=== PATIENT | female | born 1945 | race Caucasian/White ===

== ENCOUNTER 2016-05-30 20:26 | Emergency (ER) | payer OTHER ==
[2016-05-30 20:36] VITALS: BP 124/74; TEMP 98.9; BMI 20.7
[2016-05-30] MEDS ORDERED: SOLU-MEDROL 125 MG IVP STA (20:50)
[2016-05-30] MEDS ORDERED: DUONEB NEB STA (20:50)
--- NOTE | 2016-05-30 20:52 | ED.PDOC ---
General ED Provider: Dr. JEAN CARLOS WOODS Chief Complaint: Shortness of Air Stated Complaint: been coughing congestion, getting yellow sputum. Time Seen by Physician: 21:00 Mode of Arrival: Walk-In Information Source: Patient Primary Care Provider: GOLDIE YUNG Nursing and Triage Documentation Reviewed and Agree: Yes Respiratory Complaint Exam - Shortness of Air Complaint/Exam Symptoms Are: Still present Timing: Constant Initial Severity: Mild Current Severity: Mild Character: Reports: Dyspnea at rest, Dyspnea on exertion Aggravating: Reports: Allergens, URI, Smoke exposure Alleviating: Reports: None Associated Signs and Symptoms: Reports: Cough, Wheezing, Nasal congestion. Denies: Chest pain with cough, Chest pain, Fever, Chills, Diaphoresis, Dizziness , Calf pain, Calf swelling, Edema, Rapid breathing, Labored breathing, Decreased intake Related History: Reports: Similar episode History of Healthcare-Acquired Pneumonia: No Pulmonary Embolism Risk Factors: Reports: None Cardiac Risk Factors: Reports: CAD, Smoking, Hypertension Pseudomonas Risk Factors: Reports: None Home Oxygen Use: Yes Recent Stress Test: No Recent Echo/LV Function: No Respiratory Distress: None Stridor Present: No Tracheal Deviation: No Subcutaneous Emphysema: No Accessory Muscle Use: No Retractions: Not Present Diminished Breath Sounds: No Prolonged Expiratory Phase: No Unable to Speak Full Sentences: No Fatigue: No Leg Swelling: No Differential Diagnoses: COPD Exacerbation, Pneumonia Review of Systems - Review Of Systems Constitutional: Reports: Malaise, Weakness Eyes: Reports: No symptoms Ears, Nose, Mouth, Throat: Reports: No symptoms Respiratory: Reports: Cough, Short of air Cardiac: Reports: No symptoms GI: Reports: No symptoms : Reports: No symptoms Musculoskeletal: Reports: No symptoms Skin: Reports: No symptoms Neurological: Reports: No symptoms Endocrine: Reports: No symptoms Hematologic/Lymphatic: Reports: No symptoms All Other Systems: Reviewed and Negative Past Medical History - Past Medical History Previously Healthy: No Endocrine: Reports: None Cardiovascular: Reports: None Respiratory: Reports: COPD Hematological: Reports: Anemia Gastrointestinal: Reports: None Genitourinary: Reports: None Neuro/Psych: Reports: None Musculoskeletal: Reports: Arthritis, Joint Pain, Other (osteoporsis ). Denies: None Cancer: Reports: None Last Menstrual Period: HYSTERECTOMY - Surgical History General Surgical History: Reports: Hysterectomy - Family History Family History: Reports: Unknown - Social History Smoking Status: Current every day smoker, Light tobacco smoker Hx Substance Use: No Alcohol Screening: None - Immunizations Tetanus Shot up to Date: No Physical Exam - Physical Exam Appearance: Ill-appearing, Thin Ill-appearing: Mild Eyes: BRADLEY, EOMI, Conjunctiva clear ENT: Ears normal, Nose normal, Oropharynx normal Respiratory: Crackles, Wheezes Cardiovascular: RRR, Pulses normal, No rub, No murmur GI/: Soft, Nontender, No masses, Bowel sounds normal, No Organomegaly Musculoskeletal: Normal strength, ROM intact, No edema, No calf tenderness Skin: Warm, Dry, Normal color Neurological: Sensation intact, Motor intact, Reflexes intact, Cranial nerves intact, Alert, Oriented Psychiatric: Affect appropriate, Mood appropriate Interpretation - Radiology Interpretation Radiology Interpretation By: ED Physician Radiology Results: Negative Exam Interpreted: CXR Critical Care Note - Critical Care Note Total Time (mins): 0 Course - Course Hematology/Chemistry: 05/30/16 21:05 05/30/16 21:05 Orders, Labs, Meds: Lab Review 05/30/16 05/30/16 20:50 21:05 WBC 16.64 H RBC 3.88 L Hgb 12.9 Hct 37.3 MCV 96.1 MCH 33.2 H MCHC 34.6 RDW Coeff of Lynette 14.5 Plt Count 236 Immature Gran % (Auto) 0.4 Neut % (Auto) 84.6 Lymph % (Auto) 7.5 L Swain % (Auto) 7.2 Eos % (Auto) 0.1 Baso % (Auto) 0.2 Immature Gran # (Auto) 0.1 Neut # 14.1 H Lymph # 1.2 Swain # 1.2 Eos # 0.0 Baso # 0.0 Puncture Site Rb O2 Saturation 96.0 ABG pH 7.377 ABG pCO2 37.2 ABG pO2 80.0 L ABG HCO3 21.9 L ABG Total CO2 23 ABG Base Excess -3 L Bernabe Test + O2 Delivery Device Nc Oxygen Liter Flow 2.50 FiO2 % 30.0 Sodium 126 L Potassium 4.4 Chloride 93 L Carbon Dioxide 20 L Anion Gap 17.4 BUN 10 Creatinine 0.66 Estimated GFR (MDRD) 89.00 BUN/Creatinine Ratio 15.15 Glucose 118 H Calcium 8.7 Total Bilirubin 0.21 AST 41 H ALT 15 Alkaline Phosphatase 76 Total Creatine Kinase 355 CK-MB (CK-2) 8.7 H* CK-MB (CK-2) % 2.29307 Troponin I 0.0110 B-Natriuretic Peptide 99 Total Protein 6.7 Albumin 3.4 Globulin 3.3 Albumin/Globulin Ratio 1.03 Orders Category Date Time Status ABG DRAW REQUEST Stat CARDIO 05/30/16 20:50 Completed EKG-(ED ONLY) Stat CARDIO 05/30/16 20:50 Completed NEBULIZER TREATMENT Stat CARDIO 05/30/16 20:50 Completed ED IV/MEDIPORT/POWERPORT .ONCE EMERGENCY 05/30/16 20:50 Active ABG Stat LAB 05/30/16 20:50 Completed B-TYPE NATRIURETIC PEPTIDE Stat LAB 05/30/16 21:05 Completed CBC W/ AUTO DIFF Stat LAB 05/30/16 21:05 Completed COMPREHENSIVE METABOLIC PANEL Stat LAB 05/30/16 21:05 Completed CREATINE KINASE Stat LAB 05/30/16 21:05 Completed TROPONIN I Stat LAB 05/30/16 21:05 Completed 0.9 % Sodium Chloride [Saline Flush] MEDS 05/30/16 20:50 Ordered 1 syr IVF PRN PRN Cephalexin [Keflex] MEDS 05/30/16 21:54 Discontinued 500 mg PO ONCE STA Ipratropium/Albuterol Neb [Duoneb] MEDS 05/30/16 20:50 Discontinued 1 vial NEB ONCE STA Methylprednisolone Sod Succ/Pf [Solu-Medrol 125 mg] MEDS 05/30/16 21:50 Discontinued 80 mg IM ONCE STA Methylprednisolone Sod Succ/Pf [Solu-Medrol 125 mg] MEDS 05/30/16 20:50 Discontinued 80 mg IVP ONCE STA CHEST, 1V AP ONLY Stat RADS 05/30/16 20:50 Taken Medications Generic Name Dose Route Start Last Admin Trade Name Freq PRN Reason Stop Dose Admin Sodium Chloride 1 syr 05/30/16 20:50 Saline Flush IVF PRN PRN To flush IV Discontinued Medications Generic Name Dose Route Start Last Admin Trade Name Freq PRN Reason Stop Dose Admin Albuterol/Ipratropium 1 vial 05/30/16 20:50 05/30/16 21:30 Duoneb NEB 05/30/16 20:51 1 vial ONCE STA Administration Cephalexin 500 mg 05/30/16 21:54 05/30/16 22:03 Keflex PO 03/28/17 21:55 500 mg ONCE STA Administration Methylprednisolone Sodium Succinate 80 mg 05/30/16 20:50 05/30/16 21:52 Solu-Medrol 125 Mg IVP 05/30/16 20:51 Not Given ONCE STA Methylprednisolone Sodium Succinate 80 mg 05/30/16 21:50 05/30/16 22:02 Solu-Medrol 125 Mg IM 05/30/16 21:51 80 mg ONCE STA Administration Vital Signs: Temp Pulse Resp BP Pulse Ox 05/30/16 20:27 98.9 F 82 26 H 124/74 91 L Departure - Departure Time of Disposition: 22:53 Disposition: HOME SELF-CARE Discharge Problem: Bronchitis Instructions: Acute Bronchitis (ED) Condition: Stable Pt referred to PMD for follow-up: Yes Additional Instructions: PATIENT WANTS TO GO HOME, HER DAUGHTER IS IN THE ROOM. INCREASE HYDRATION PROBIOTICS TAKE MEDICATIONS WITH FOOD. Prescriptions: Cephalexin [Keflex] 500 mg PO Q12HR #20 capsule Guaifenesin/Codeine Phosphate [Robitussin AC Syrup] 10 ml PO Q6H #1 bottle Methylprednisolone [Medrol Dosepak] 4 mg PO DIRECTED #1 pkg Allergies/Adverse Reactions: Allergies aspirin Adverse Reaction (Verified 05/30/16 20:34) Abdominal Pain Penicillins Adverse Reaction (Verified 05/30/16 20:34) Rash Home Medications: Ambulatory Orders Carbidopa/Levodopa [Carbidopa-Levo 25-100 mg Odt] 2 tab PO BID 12/30/12 Gabapentin 1 tab PO BID 12/30/12 Losartan Potassium [Cozaar] 1 tab PO DAILY 12/30/12 Montelukast Sodium 10 mg PO DAILY 12/30/12 Tiotropium [place] [Spiriva] 1 inh INH DAILY 12/30/12 Sucralfate 1 tab PO TID 02/11/15 Budesonide/Formoterol Fumarate [Symbicort 80-4.5 Mcg Inhaler] 2 puff IH BID 01/18 Clopidogrel Bisulfate [Clopidogrel] 75 mg PO DAILY 10/30/15 Albuterol Sulfate [Proair Hfa] 2 puff INH DAILY 10/31/15 Ranitidine HCl [Zantac] 150 mg PO BIDAC 10/31/15 Tizanidine HCl [Zanaflex] 1 tab PO DAILY PRN 10/31/15 Ferrous Sulfate 325 mg PO BID #60 tablet 11/02/15 Cephalexin [Keflex] 500 mg PO Q12HR #20 capsule 05/30/16 Guaifenesin/Codeine Phosphate [Robitussin AC Syrup] 10 ml PO Q6H #1 bottle 05/30 Methylprednisolone [Medrol Dosepak] 4 mg PO DIRECTED #1 pkg 05/30/16 Disposition Discussed With: Patient, Family
[2016-05-30 21:26] LABS: BASOPHILS % (AUTO) 0.2 % (0.0-3.0); EOSINOPHILS % (AUTO) 0.1 % (0.0-7.0); HEMATOCRIT 37.3 % (37.0-47.0); HEMOGLOBIN 12.9 g/dl (12.0-16.0); IMMATURE GRANULOCYTE % (AUTO) 0.4 % (0.0-5.0); LYMPHOCYTES # (AUTO) 1.2 K/uL (0.60-3.4); LYMPHOCYTES % (AUTO) 7.5 (10.0-50.0); MEAN CORPUSCULAR HEMOGLOBIN 33.2 pg (27.0-31.0); MEAN CORPUSCULAR HGB CONC 34.6 (31.8-35.4); MEAN CORPUSCULAR VOLUME 96.1 fl (81.0-99.0); MONOCYTES # (AUTO) 1.2 K/uL (0.4-2.0); MONOCYTES % (AUTO) 7.2 (0-10); NEUTROPHILS # (AUTO) 14.1 K/ul (2.0-6.9); NEUTROPHILS % (AUTO) 84.6; PLATELET COUNT 236 10^3/uL (140-440); RED BLOOD COUNT 3.88 10^6/ul (4.20-5.40); WHITE BLOOD COUNT 16.64 K/ul (4.6-10.2)
[2016-05-30 21:40] LABS: ABG BASE EXCESS -3 (-2.0-2.0); ABG HCO3 21.9 (22.0-26.0); ABG PCO2 37.2 mmHg (35-45); ABG PH 7.377 (7.35-7.45); ABG TCO2 23 (22.0-28.0)
[2016-05-30] MEDS ORDERED: SOLU-MEDROL 125 MG IM STA (21:50)
[2016-05-30] MEDS ORDERED: KEFLEX PO STA (21:54)
[2016-05-30 22:06] LABS: ALBUMIN 3.4 g/dL (3.4-5.0); ALBUMIN/GLOBULIN RATIO 1.03; ANION GAP 17.4; BILIRUBIN,TOTAL 0.21 mg/dL (0.00-1.20); BUN/CREATININE RATIO 15.15; CALCIUM 8.7 mg/dL (8.2-10.2); CREATININE 0.66 mg/dL (0.60-1.30); POTASSIUM 4.4 mmol/L (3.5-5.10); TOTAL PROTEIN 6.7 g/dL (5.8-8.1); TROPONIN I 0.011 ng/ml (0.0000-0.4000)
[2016-05-30 22:11] LABS: CREATINE KINASE MB 8.7 ng/ml (0.0-3.6)
--- NOTE | 2016-05-31 07:40 | DI ---
EXAM: Chest one view, frontal view only. HISTORY: Cough. COMPARISON: 12/24/2015. FINDINGS: Heart size is normal. Reticulonodular opacities seen throughout both lungs with patchy l eft perihilar and bibasilar consolidation. No pleural effusion or pneumothorax identified. Hiatal hernia noted. IMPRESSION: Suspect bilateral pneumonia. Follow-up is recommended to confirm resolution.
== END 2016-05-31 00:37 | disposition home or self-care (01) ==
LOC: ED 20:26
DX: J20.9 Acute bronchitis, unspecified (principal); I10 Essential (primary) hypertension; I25.10 Atherosclerotic heart disease of native coronary artery without angina pectoris; F17.210 Nicotine dependence, cigarettes, uncomplicated; Z79.899 Other long term (current) drug therapy
CPT/HCPCS: 36415; 80053; 82550; 82553; 82803; 83880; 84484; 85025; 93005; 93010; 94640; 96372; 99284

== ENCOUNTER 2016-06-04 10:23 | Outpatient (CLI) ==
[2016-06-04 10:41] VITALS: BMI 20.7
== END 2016-06-04 10:24 | disposition home or self-care (01) ==
LOC: AMBL 10:23
PROVIDERS: ATTEND Emergency Medicine
DX: J18.9 Pneumonia, unspecified organism (principal); J44.9 Chronic obstructive pulmonary disease, unspecified; F17.210 Nicotine dependence, cigarettes, uncomplicated; Z99.81 Dependence on supplemental oxygen; Z79.899 Other long term (current) drug therapy

== ENCOUNTER 2016-06-04 10:33 | Emergency (ER) ==
[2016-06-04 10:41] VITALS: BP 182/106; TEMP 98.4; BMI 20.7
[2016-06-04] MEDS ORDERED: SOLU-MEDROL 125 MG IVP STA (10:45)
[2016-06-04] MEDS ORDERED: DUONEB NEB STA (10:45)
[2016-06-04] MEDS ORDERED: SODIUM CHLORIDE 100 ML IV ONE (10:45)
[2016-06-04] MEDS ORDERED: ROCEPHIN 1 GM in SODIUM CHLORIDE 100 ML IV STA (10:45)
--- NOTE | 2016-06-04 10:49 | ED.PDOC ---
General ED Provider: Dr. JEAN CARLOS WOODS Chief Complaint: Shortness of Air Stated Complaint: patient was fine until yesterday, but started with more coughing, shortness of breath today, Time Seen by Physician: 10:47 Mode of Arrival: Stretcher Information Source: Patient, EMT Primary Care Provider: GOLDIE YUNG Nursing and Triage Documentation Reviewed and Agree: Yes Respiratory Complaint Exam - Shortness of Air Complaint/Exam Symptoms Are: Still present Timing: Constant Initial Severity: Moderate Current Severity: Moderate Character: Reports: Dyspnea at rest, Dyspnea on exertion Aggravating: Reports: Allergens, URI Alleviating: Reports: None Associated Signs and Symptoms: Reports: Cough, Wheezing, Nasal congestion. Denies: Chest pain with cough, Chest pain, Fever, Chills, Diaphoresis, Dizziness , Calf pain, Calf swelling, Edema, Rapid breathing, Labored breathing, Decreased intake Related History: Reports: Similar episode History of Healthcare-Acquired Pneumonia: No Pulmonary Embolism Risk Factors: Reports: None Cardiac Risk Factors: Reports: None Pseudomonas Risk Factors: Reports: None Tuberculosis Risk Factors: Reports: None Recent Stress Test: No Recent Echo/LV Function: No Respiratory Distress: Mild Stridor Present: No Tracheal Deviation: No Subcutaneous Emphysema: No Accessory Muscle Use: Yes Retractions: Nasal Flaring Diminished Breath Sounds: No Prolonged Expiratory Phase: Yes Unable to Speak Full Sentences: No Fatigue: No Leg Swelling: No Domenica's Sign Present: No Grunting Respirations: No Kussmaul Respirations: No Differential Diagnoses: CHF, COPD Exacerbation, Pneumonia, Bronchitis Review of Systems - Review Of Systems Constitutional: Reports: Malaise, Weakness Eyes: Reports: No symptoms Ears, Nose, Mouth, Throat: Reports: No symptoms Respiratory: Reports: Cough, Orthopnea, Short of air Cardiac: Reports: No symptoms GI: Reports: No symptoms : Reports: No symptoms Musculoskeletal: Reports: No symptoms Skin: Reports: No symptoms Neurological: Reports: No symptoms Endocrine: Reports: No symptoms Hematologic/Lymphatic: Reports: No symptoms All Other Systems: Reviewed and Negative Past Medical History - Past Medical History Previously Healthy: No Endocrine: Reports: None Cardiovascular: Reports: None Respiratory: Reports: COPD Hematological: Reports: Anemia Gastrointestinal: Reports: None Genitourinary: Reports: None Neuro/Psych: Reports: None Musculoskeletal: Reports: Arthritis, Joint Pain, Other (osteoporsis ). Denies: None Cancer: Reports: None Last Menstrual Period: menopause - Surgical History General Surgical History: Reports: Hysterectomy - Family History Family History: Reports: Unknown - Social History Smoking Status: Current every day smoker, Light tobacco smoker Smoking Cessation Counseling Time: > 3 min - 10 min Hx Substance Use: No Alcohol Screening: None Physical Exam - Physical Exam Appearance: Ill-appearing, Thin Ill-appearing: Moderate Eyes: BRADLEY, EOMI, Conjunctiva clear ENT: Ears normal, Nose normal, Oropharynx normal Respiratory: Crackles, Rhonchi, Wheezes Cardiovascular: RRR, Pulses normal, No rub, No murmur GI/: Soft, Nontender, No masses, Bowel sounds normal, No Organomegaly Musculoskeletal: Normal strength, ROM intact, No edema, No calf tenderness Skin: Warm, Dry, Normal color Neurological: Sensation intact, Motor intact, Reflexes intact, Cranial nerves intact, Alert, Oriented Psychiatric: Affect appropriate, Mood appropriate Interpretation - Radiology Interpretation Radiology Interpretation By: Radiologist Radiology Results: Positive Exam Interpreted: CT Scan Physician Notification - Case Discussed Time of Notification: 12:42 (dR Flynn) Critical Care Note - Critical Care Note Total Time (mins): 0 Course - Course Hematology/Chemistry: 06/04/16 11:05 06/04/16 11:05 Orders, Labs, Meds: Lab Review 06/04/16 06/04/16 10:46 11:05 WBC 14.69 H RBC 4.31 Hgb 14.2 Hct 42.8 MCV 99.3 H MCH 32.9 H MCHC 33.2 RDW Coeff of Lynette 14.1 Plt Count 489 H Immature Gran % (Auto) 0.3 Neut % (Auto) 79.7 Lymph % (Auto) 12.0 Kendall % (Auto) 7.6 Eos % (Auto) 0.1 Baso % (Auto) 0.3 Immature Gran # (Auto) 0.1 Neut # 11.7 H Lymph # 1.8 Kendall # 1.1 Eos # 0.0 Baso # 0.0 Puncture Site Rrad O2 Saturation 93.0 L ABG pH 7.427 ABG pCO2 55.8 H ABG pO2 68.0 L ABG HCO3 36.8 H ABG Total CO2 38 H ABG Base Excess 12 H Bernabe Test + O2 Delivery Device Nc Oxygen Liter Flow 2.00 FiO2 % 28.0 Sodium 143 Potassium 3.6 Chloride 96 L Carbon Dioxide 35 H Anion Gap 15.6 BUN 13 Creatinine 0.68 Estimated GFR (MDRD) 86.00 BUN/Creatinine Ratio 19.11 Glucose 124 H Lactic Acid 8.7 Calcium 10.3 H Total Bilirubin 0.43 AST 16 ALT 17 Alkaline Phosphatase 86 Total Creatine Kinase 63 Troponin I < 0.0100 B-Natriuretic Peptide 129 H Total Protein 7.6 Albumin 3.4 Globulin 4.2 Albumin/Globulin Ratio 0.81 Orders Category Date Time Status ABG DRAW REQUEST Stat CARDIO 06/04/16 10:47 Ordered EKG-(ED ONLY) Stat CARDIO 06/04/16 10:46 Ordered NEBULIZER TREATMENT Stat CARDIO 06/04/16 10:46 Ordered ABG Stat LAB 06/04/16 10:46 Completed B-TYPE NATRIURETIC PEPTIDE Stat LAB 06/04/16 11:05 Completed CBC W/ AUTO DIFF Stat LAB 06/04/16 11:05 Completed COMPREHENSIVE METABOLIC PANEL Stat LAB 06/04/16 11:05 Completed CREATINE KINASE Stat LAB 06/04/16 11:05 Completed LACTIC ACID Stat LAB 06/04/16 11:05 Completed SPUTUM CULTURE Stat LAB 06/04/16 10:45 Ordered TROPONIN I Stat LAB 06/04/16 11:05 Completed Ceftriaxone Sodium [Rocephin] MEDS 06/04/16 10:50 Discontinued 1 gm .ROUTE .STK-MED ONE Ceftriaxone Sodium [Rocephin] 1 gm MEDS 06/04/16 10:45 Discontinued 0.9 % Sodium Chloride [Sodium Chloride] 100 ml IV ONCE Ipratropium/Albuterol Neb [Duoneb] MEDS 06/04/16 10:45 Discontinued 1 vial NEB ONCE STA Methylprednisolone Sod Succ/Pf [Solu-Medrol 125 mg] MEDS 06/04/16 10:45 Discontinued 80 mg IVP ONCE STA Morphine Sulfate [Morphine 2 mg/ml Syringe] MEDS 06/04/16 10:50 Discontinued 2 mg IVP ONCE STA CT CHEST W/O CONTRAST Stat RADS 06/04/16 10:45 Completed Medications Discontinued Medications Generic Name Dose Route Start Last Admin Trade Name Freq PRN Reason Stop Dose Admin Albuterol/Ipratropium 1 vial 06/04/16 10:45 06/04/16 10:50 Duoneb NEB 06/04/16 10:46 1 vial ONCE STA Administration Ceftriaxone Sodium 1 gm/ 100 mls @ 100 mls/hr 06/04/16 10:45 06/04/16 11:26 Sodium Chloride IV 06/04/16 11:44 Not Given ONCE STA Methylprednisolone Sodium Succinate 80 mg 06/04/16 10:45 06/04/16 10:56 Solu-Medrol 125 Mg IVP 06/04/16 10:46 80 mg ONCE STA Administration Morphine Sulfate 2 mg 06/04/16 10:50 06/04/16 11:22 Morphine 2 Mg/Ml Syringe IVP 06/04/16 10:51 2 mg ONCE STA Administration Vital Signs: Temp Pulse Resp BP Pulse Ox 06/04/16 10:34 98.4 F 107 H 36 H 182/106 H 96 Departure - Departure Time of Disposition: 12:43 Disposition: TSF OTHER Discharge Problem: COPD exacerbation, Mycobacterium avium-intracellulare infection Instructions: Chronic Bronchitis (ED) Condition: Stable Pt referred to PMD for follow-up: Yes Allergies/Adverse Reactions: Allergies aspirin Adverse Reaction (Verified 06/04/16 10:42) Abdominal Pain Penicillins Adverse Reaction (Verified 06/04/16 10:42) Rash Home Medications: Ambulatory Orders Carbidopa/Levodopa [Carbidopa-Levo 25-100 mg Odt] 2 tab PO BID 12/30/12 Gabapentin 1 tab PO BID 12/30/12 Losartan Potassium [Cozaar] 1 tab PO DAILY 12/30/12 Montelukast Sodium 10 mg PO DAILY 12/30/12 Tiotropium [place] [Spiriva] 1 inh INH DAILY 12/30/12 Sucralfate 1 tab PO TID 02/11/15 Budesonide/Formoterol Fumarate [Symbicort 80-4.5 Mcg Inhaler] 2 puff IH BID 01/18 Clopidogrel Bisulfate [Clopidogrel] 75 mg PO DAILY 10/30/15 Albuterol Sulfate [Proair Hfa] 2 puff INH DAILY 10/31/15 Ranitidine HCl [Zantac] 150 mg PO BIDAC 10/31/15 Tizanidine HCl [Zanaflex] 1 tab PO DAILY PRN 10/31/15 Ferrous Sulfate 325 mg PO BID #60 tablet 11/02/15 Cephalexin [Keflex] 500 mg PO Q12HR #20 capsule 05/30/16 Guaifenesin/Codeine Phosphate [Robitussin AC Syrup] 10 ml PO Q6H #1 bottle 05/30 Methylprednisolone [Medrol Dosepak] 4 mg PO DIRECTED #1 pkg 05/30/16 Disposition Discussed With: Patient, Family
[2016-06-04] MEDS ORDERED: MORPHINE 2 MG/ML SYRINGE IVP STA (10:50)
[2016-06-04] MEDS ORDERED: ROCEPHIN ONE (10:50)
[2016-06-04 11:05] LABS: ABG BASE EXCESS 12 (-2.0-2.0); ABG HCO3 36.8 (22.0-26.0); ABG PCO2 55.8 mmHg (35-45); ABG PH 7.427 (7.35-7.45); ABG TCO2 38 (22.0-28.0)
[2016-06-04 11:10] LABS: BASOPHILS % (AUTO) 0.3 % (0.0-3.0); EOSINOPHILS % (AUTO) 0.1 % (0.0-7.0); HEMATOCRIT 42.8 % (37.0-47.0); HEMOGLOBIN 14.2 g/dl (12.0-16.0); IMMATURE GRANULOCYTE % (AUTO) 0.3 % (0.0-5.0); LYMPHOCYTES # (AUTO) 1.8 K/uL (0.60-3.4); MEAN CORPUSCULAR HEMOGLOBIN 32.9 pg (27.0-31.0); MEAN CORPUSCULAR HGB CONC 33.2 (31.8-35.4); MEAN CORPUSCULAR VOLUME 99.3 fl (81.0-99.0); MONOCYTES # (AUTO) 1.1 K/uL (0.4-2.0); MONOCYTES % (AUTO) 7.6 (0-10); NEUTROPHILS # (AUTO) 11.7 K/ul (2.0-6.9); NEUTROPHILS % (AUTO) 79.7; PLATELET COUNT 489 10^3/uL (140-440); RED BLOOD COUNT 4.31 10^6/ul (4.20-5.40); WHITE BLOOD COUNT 14.69 K/ul (4.6-10.2)
--- NOTE | 2016-06-04 11:31 | CT ---
EXAM: CT of the chest without contrast. HISTORY: Shortness of breath. COMPARISON: 12/22/2015 and 02/16/2015. TECHNIQUE: Contiguous axial images at 5 mm intervals obtained from the lung apices to the upper abd omen. Study was performed without IV contrast. Sagittal and coronal reformats were reviewed. FINDINGS: There is mild motion artifact. There is no lobar consolidation or effusion. Calcified g ranulomas are seen. There is diffuse peribronchial thickening and multiple micronodular densities b ilaterally, left greater than right. These findings are increased in comparison to the prior study. There are no suspicious nodules. The airways are widely patent. There is no pleural thickening. The heart size is within normal as. Coronary artery calcifications are seen. There is a hiatal her rufus. There are multiple bilateral healed rib fractures. No definite lytic or blastic lesions. Limited views of the upper abdomen. The visualized portion of the liver, spleen, pancreas adrenal g lands are unremarkable. The aorta is heavily calcified. IMPRESSION: 1. No lobar consolidation or effusion. 2. Diffuse, multiple bilateral micronodular densities seen, left greater than right. Mild peribron chial thickening is seen. These findings are increased in comparison to prior study. Findings sugg est infectious inflammatory process including atypical pneumonia such as VERA. 2. No suspicious nodules. 3. Coronary artery disease. Heavy atherosclerotic disease of the aorta.
[2016-06-04 11:36] LABS: ALANINE AMINOTRANSFERASE 17 U/L (12-78); ALBUMIN 3.4 g/dL (3.4-5.0); ALBUMIN/GLOBULIN RATIO 0.81; ALKALINE PHOSPHATASE 86 U/L (53-141); ANION GAP 15.6; ASPARTATE AMINO TRANSFERASE 16 U/L (15-37); BILIRUBIN,TOTAL 0.43 mg/dL (0.00-1.20); BLOOD UREA NITROGEN 13 mg/dL (7-18); BUN/CREATININE RATIO 19.11; CALCIUM 10.3 mg/dL (8.2-10.2); CARBON DIOXIDE 35 mmol/L (23-31); CHLORIDE 96 mmol/L (98-107); CREATINE KINASE 63 U/L; CREATININE 0.68 mg/dL (0.60-1.30); GLUCOSE 124 mg/dL (82-115); POTASSIUM 3.6 mmol/L (3.5-5.10); SODIUM 143 mmol/L (136-145); TOTAL PROTEIN 7.6 g/dL (5.8-8.1)
[2016-06-08 13:13] LABS: BACTERIA IDENTIFICATION Final report (.)
== END 2016-06-04 13:15 | disposition short-term general hospital (02) ==
LOC: ED 10:33
DX: J44.1 Chronic obstructive pulmonary disease with (acute) exacerbation (principal); A31.0 Pulmonary mycobacterial infection; F17.210 Nicotine dependence, cigarettes, uncomplicated; Z79.899 Other long term (current) drug therapy
CPT/HCPCS: 36415; 80053; 82550; 82803; 83605; 83880; 84484; 85025; 87070; 87077; 87186; 93005; 93010; 94640; 96365; 96375; 99285

== ENCOUNTER 2016-09-19 09:12 | Outpatient (CLI) ==
--- NOTE | 2016-09-19 10:04 | DEXA ---
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 There is verte braplasty and compression fracture at L2. COMPARISON: DEXA 01/12/2015 TECHNIQUE: Digital images of the thoracolumbar spine and hips were provided and calculation of bone density was obtained. FINDINGS: Digital images demonstrate compression deformity and vertebraplasty at L2 of the thoracol umbar spine. DEXA scan of the lumbar spine is of good quality. The total BMD equals 0.797 grams per square centimeter. (Prior 0.705) bone density evaluation is un reliable due to interval L2 compression fracture and vertebraplasty. T-score is - 3.2 and Z-score of - 1.2. DEXA of the hips was performed and of good quality. Total bone marrow density of 0.613 grams per square centimeter. (Prior 0.665) T score is - 3.1 and Z-score of - 1.4. IMPRESSION: Bone density of the hip and lumbar spine demonstrate osteoporosis of the lumbar spine a nd hips by WHO criteria. There is been interval compression deformity vertebraplasty at L2. 10-year major osteoporotic fracture risk of 34% and hip fracture risk of 18.3% was calculated per FR AX calculation tool. T score greater than -1 is normal T score -1 to -2.5 is osteopenia T score less than - 2.5 is osteoporosis
== END 2016-09-19 09:13 | disposition home or self-care (01) ==
LOC: RAD 09:12
PROVIDERS: ATTEND Emergency Medicine
DX: M81.0 Age-related osteoporosis without current pathological fracture (principal)

== ENCOUNTER 2016-11-23 09:25 | Outpatient (CLI) ==
--- NOTE | 2016-11-24 09:51 | MAMMO ---
EXAM: Bilateral digital screening mammogram (2-D and 3-D) Comparison: Bilateral mammogram 04/15/2014 History: Screening Technique: MLO and CC views of bilateral breasts demonstrate scattered fibroglandular breast parench yma. CAD was reviewed by the radiologist. Tomosynthesis used. Stable benign bilateral vascular soraya cifications. Stable benign coarse calcifications within the right breast. There are no suspicious c alcifications, no dominant masses and no architectural distortions. Biopsy clip again seen within th e right breast Impression: Benign stable mammogram. Recommend followup routine screening mammography in 1 year. BIRADS 2
== END 2016-11-23 09:26 | disposition home or self-care (01) ==
LOC: RAD 09:25
PROVIDERS: ATTEND Emergency Medicine
DX: Z12.31 Encounter for screening mammogram for malignant neoplasm of breast (principal)
CPT/HCPCS: 77067

== ENCOUNTER 2016-12-27 10:54 | Outpatient (CLI) ==
[2016-12-27 11:21] LABS: BASOPHILS # (AUTO) 0.1 K/uL (0-0.2); BASOPHILS % (AUTO) 0.9 % (0.0-3.0); EOSINOPHILS # (AUTO) 0.1 K/ul (0.0-0.7); EOSINOPHILS % (AUTO) 1.6 % (0.0-7.0); HEMATOCRIT 45.8 % (37.0-47.0); HEMOGLOBIN 15.4 g/dl (12.0-16.0); IMMATURE GRANULOCYTE % (AUTO) 0.3 % (0.0-5.0); LYMPHOCYTES # (AUTO) 1.8 K/uL (0.60-3.4); LYMPHOCYTES % (AUTO) 24.4 (10.0-50.0); MEAN CORPUSCULAR HEMOGLOBIN 32.3 pg (27.0-31.0); MEAN CORPUSCULAR HGB CONC 33.6 (31.8-35.4); MONOCYTES # (AUTO) 0.7 K/uL (0.4-2.0); MONOCYTES % (AUTO) 9.5 (0-10); NEUTROPHILS # (AUTO) 4.8 K/ul (2.0-6.9); NEUTROPHILS % (AUTO) 63.3; PLATELET COUNT 269 10^3/uL (140-440); RED BLOOD COUNT 4.77 10^6/ul (4.20-5.40)
[2016-12-27 12:00] LABS: ALBUMIN 3.7 g/dL (3.4-5.0); ALBUMIN/GLOBULIN RATIO 1.03; ANION GAP 14.8; BILIRUBIN,TOTAL 0.32 mg/dL (0.00-1.20); BUN/CREATININE RATIO 9.63; CALCIUM 9.7 mg/dL (8.2-10.2); CREATININE 0.83 mg/dL (0.60-1.30); POTASSIUM 3.8 mmol/L (3.5-5.10); TOTAL PROTEIN 7.3 g/dL (5.8-8.1)
[2016-12-27 12:01] LABS: CHOL/HDL RATIO 2.8 (4.5-5.5)
== END 2016-12-27 10:55 | disposition home or self-care (01) ==
LOC: LAB 10:54
PROVIDERS: ATTEND Emergency Medicine
DX: I10 Essential (primary) hypertension (principal); G20 Parkinson's disease; J44.9 Chronic obstructive pulmonary disease, unspecified
CPT/HCPCS: 36415; 80053; 80061; 84443; 85025

== ENCOUNTER 2017-01-02 20:48 | Inpatient (IN) ==
[2017-01-02 21:33] LABS: BASOPHILS # (AUTO) 0.1 K/uL (0-0.2); BASOPHILS % (AUTO) 0.9 % (0.0-3.0); EOSINOPHILS # (AUTO) 0.3 K/ul (0.0-0.7); EOSINOPHILS % (AUTO) 3.2 % (0.0-7.0); HEMATOCRIT 37.9 % (37.0-47.0); HEMOGLOBIN 12.5 g/dl (12.0-16.0); IMMATURE GRANULOCYTE % (AUTO) 0.2 % (0.0-5.0); LYMPHOCYTES # (AUTO) 2.1 K/uL (0.60-3.4); LYMPHOCYTES % (AUTO) 22.3 (10.0-50.0); MEAN CORPUSCULAR HEMOGLOBIN 31.4 pg (27.0-31.0); MEAN CORPUSCULAR VOLUME 95.2 fl (81.0-99.0); MONOCYTES # (AUTO) 0.7 K/uL (0.4-2.0); MONOCYTES % (AUTO) 7.7 (0-10); NEUTROPHILS # (AUTO) 6.1 K/ul (2.0-6.9); NEUTROPHILS % (AUTO) 65.7; PLATELET COUNT 224 10^3/uL (140-440); RED BLOOD COUNT 3.98 10^6/ul (4.20-5.40); WHITE BLOOD COUNT 9.31 K/ul (4.6-10.2)
[2017-01-02 21:37] LABS: BILIRUBIN,URINE Negative (NEGATIVE); KETONES,URINE Negative (NEGATIVE); LEUKOCYTE ESTERASE ,URINE 2+ (NEGATIVE); NITRITE,URINE Negative (NEGATIVE); PROTEIN,URINE Negative (NEGATIVE); URINE, BLOOD Negative (NEGATIVE)
[2017-01-02 21:37] LABS: ABG BASE EXCESS 1 (-2.0-2.0); ABG HCO3 27.3 (22.0-26.0); ABG PH 7.336 (7.35-7.45); ABG TCO2 29 (22.0-28.0)
[2017-01-02 21:47] LABS: ADD URINE MICROSCOPIC YES
[2017-01-02 21:49] LABS: BACTERIA,URINE TRACE (NOT PRESENT)
[2017-01-02 21:52] LABS: COCAIN SCREEN,URINE NEGATIVE (NEGATIVE)
--- NOTE | 2017-01-02 21:54 | CT ---
EXAM: CT head without contrast 01/02/2017. Sagittal and coronal reformatted images obtained HISTORY: Mental status changes COMPARISON: 02/11/2015 FINDINGS: There is no evidence of intracranial hemorrhage. The midline is maintained. There is no h ydrocephalus. The generalized atrophy. Extensive chronic microvascular ischemic changes. No cerebe llar tonsillar ectopia. Evaluation of the calvarium shows no fracture. The mastoid air cells are no rmally pneumatized. IMPRESSION: 1. No intracranial hemorrhage 2. Patchy low attenuation throughout the periventricular and subcortical white matter. This is nons pecific however likely relates to chronic microvascular ischemic change. 3. Mild generalized atrophy.
--- NOTE | 2017-01-02 21:56 | CT ---
EXAM: CT scan thorax without contrast HISTORY: Back pain COMPARISON: None. FINDINGS: Contiguous axial images obtained from the thoracic inlet through the hemidiaphragms withou t contrast utilizing 5-mm collimation. Sagittal and coronal reconstructions were imaged and reviewed .. The thoracic inlet is unremarkable. The ascending aorta is ectatic measuring 4 cm. The descendi ng thoracic aorta the same level measures 2.4 cm. The heart is normal in size with coronary artery c alcification. There is a moderate sized hiatal hernia. The lungs are clear bilaterally. Old healed rib fractures are noted bilaterally. Prior kyphoplasty the at L1. Osteopenia and degenerative change s are seen in the thoracic spine IMPRESSION: No acute intrathoracic findings. Moderate sized hiatal hernia. Ectatic ascending aorta. Coronary artery calcification.
--- NOTE | 2017-01-02 22:04 | CT ---
EXAM: CT scan of the lumbar spine without contrast HISTORY: Back pain TECHNIQUE: Imaging of the lumbar spine was performed without contrast. Sagittal and coronal reconst ructions and axial images were provided for interpretation. Comparison 10/27/2015 CT scan of the lumbar spine FINDINGS: There is straightening of the lumbar spine. There is a treated compression fracture of th e L2 vertebral body. No definite new compression fractures are seen. There is mild bowing of the pos terior cortex of L2 into the spinal canal causing mild narrowing without severe stenosis. There is n o pars defect. There is stable appearance of moderate to severe loss of disc height and degenerative disc disease seen at L5-S1. The sacrum appears intact. Segmental analysis: T12-L1: The central canal and neural foramina appear patent. L1-L2: The central canal and neural foramina appear patent. L2-L3: The central canal and neural foramina appear patent. L3-L4: The central canal and neural foramina appear patent. L4-L5: There is mild to moderate facet joint arthropathy. There is additional mild disc bulge resul ting in mild narrowing of the neural foramina. L5-S1: The central canal and lateral recesses appear patent. There is loss of disc height and mild disc bulge resulting in mild to moderate bilateral foraminal stenosis. IMPRESSION: There is a treated compression fracture of the L2 vertebral body. No definite new compression fractures are seen. There is no central canal stenosis. Facet joint arthropathy seen within the lower lumbar spine. Mild to moderate bilateral foraminal stenosis seen at L5-S1.
--- NOTE | 2017-01-02 22:08 | CT ---
EXAM: CT scan abdomen pelvis without contrast HISTORY: Pain COMPARISON: CT scan abdomen pelvis 01/13/2015 FINDINGS: Contiguous axial images obtained from lung bases to the symphysis pubis contrast utilizing 3-mm collimation. Sagittal and coronal reconstructions were imaged and reviewed. There is a modera te sized hiatal hernia. There has been prior cholecystectomy. The liver spleen and adrenal glands sanchez ve normal unenhanced CT appearance. Fatty infiltration is seen within the pancreas. Atherosclerotic changes are seen involving the aorta without aneurysm formation.. There has been prior appendectomy and hysterectomy. There is no free fluid.. Degenerative changes are seen within the lower lumbar s pine. There has been prior kyphoplasty at L1. IMPRESSION: No acute findings.
[2017-01-02 22:10] LABS: ALANINE AMINOTRANSFERASE < 6 U/L (12-78); ALBUMIN 3.3 g/dL (3.4-5.0); ALKALINE PHOSPHATASE 70 U/L (53-141); ANION GAP 11.5; ASPARTATE AMINO TRANSFERASE 17 U/L (15-37); BLOOD UREA NITROGEN 10 mg/dL (7-18); BUN/CREATININE RATIO 12.04; CARBON DIOXIDE 28 mmol/L (23-31); CHLORIDE 100 mmol/L (98-107); CREATINE KINASE 190 U/L; CREATININE 0.83 mg/dL (0.60-1.30); GLUCOSE 128 mg/dL (82-115); POTASSIUM 3.5 mmol/L (3.5-5.10); SODIUM 136 mmol/L (136-145); TOTAL PROTEIN 6.6 g/dL (5.8-8.1)
[2017-01-02 22:18] LABS: CREATINE KINASE MB 2.8 ng/ml (0.0-3.6)
--- NOTE | 2017-01-02 22:41 | ED.PDOC ---
General ED Provider: Dr. ITA CR-ER Chief Complaint: Altered Mental Status Stated Complaint: shes been confused today Time Seen by Physician: 20:55 Mode of Arrival: Walk-In Information Source: Patient, Family Exam Limitations: No limitations [facility] and Triage Documentation Reviewed and Agree: Yes Neurological Complaint Exam - Altered Mental Status Complaint/Exam Current Mental Status: Confusion Onset: Gradual Initial Severity: Mild Current Severity: Mild Eye Deviation Present: No Aggravating: Reports: None Alleviating: Reports: None Associated Signs and Symptoms: Denies: Dizziness, Weakness, Headache, Fever, Illness, Nuchal rigidity, Seizure, Nausea, Vomiting, Recently depressed, Trauma Cardiac Risk Factors: Reports: Hypertension Carotid Bruit Present: No Glascow Coma Scale (see protocol): 14 Nystagmus Present: No Gag Reflex Present: Yes Meningeal Signs Positive: No Focal Weakness: Present: None Focal Sensory Loss: Present: None Gait: Normal Romberg Test Positive: No Babinski Sign: Negative Right, Negative Left Heel to Toe Normal: Yes Signs of Injury: Present: Normal findings Thrombolytics Considered: No Differential Diagnoses: Metabolic Disorder Review of Systems - Review Of Systems Constitutional: Reports: No symptoms Eyes: Reports: No symptoms Ears, Nose, Mouth, Throat: Reports: No symptoms Respiratory: Reports: No symptoms Cardiac: Reports: No symptoms GI: Reports: No symptoms : Reports: No symptoms Musculoskeletal: Reports: Back pain Skin: Reports: No symptoms Neurological: Reports: No symptoms Endocrine: Reports: No symptoms Hematologic/Lymphatic: Reports: No symptoms All Other Systems: Reviewed and Negative Past Medical History - Past Medical History Previously Healthy: No Endocrine: Reports: None Cardiovascular: Reports: None Respiratory: Reports: COPD Hematological: Reports: Anemia Gastrointestinal: Reports: None Genitourinary: Reports: None Neuro/Psych: Reports: None Musculoskeletal: Reports: Arthritis, Joint Pain, Other (osteoporsis ). Denies: None Cancer: Reports: None Last Menstrual Period: na - Surgical History General Surgical History: Reports: Hysterectomy - Family History Family History: Reports: Unknown - Social History Smoking Status: Current every day smoker, Light tobacco smoker Hx Substance Use: No Alcohol Screening: None Lives: With family - Immunizations Tetanus Shot up to Date: Yes Physical Exam - Physical Exam Appearance: Well-appearing, No pain distress, Well-nourished Eyes: BRADLEY ENT: Ears normal, Nose normal, Oropharynx normal Neck: Supple Respiratory: Airway patent, Breath sounds clear, Breath sounds equal, Respirations nonlabored Cardiovascular: RRR, Pulses normal, No rub, No murmur GI/: Soft, Nontender, No masses, Bowel sounds normal, No Organomegaly Musculoskeletal: Normal strength, ROM intact, No edema, No calf tenderness Skin: Warm Neurological: Sensation intact Psychiatric: Affect appropriate, Mood appropriate Interpretation - Radiology Interpretation Radiology Interpretation By: ED Physician Radiology Results: Negative Exam Interpreted: CT Scan Physician Notification - Case Discussed Physician Notified: dr [email or web address] Time of Notification: 22:43 Critical Care Note - Critical Care Note Total Time (mins): 0 Course - Course Hematology/Chemistry: 01/02/17 21:30 01/02/17 21:30 Orders, Labs, Meds: Lab Review 01/02/17 01/02/17 01/02/17 21:10 21:30 21:30 WBC 9.31 RBC 3.98 L Hgb 12.5 Hct 37.9 MCV 95.2 MCH 31.4 H MCHC 33.0 RDW Coeff of Lynette 12.7 Plt Count 224 Immature Gran % (Auto) 0.2 Neut % (Auto) 65.7 Lymph % (Auto) 22.3 Stone % (Auto) 7.7 Eos % (Auto) 3.2 Baso % (Auto) 0.9 Immature Gran # (Auto) 0.0 Neut # 6.1 Lymph # 2.1 Stone # 0.7 Eos # 0.3 Baso # 0.1 Puncture Site Rr O2 Saturation 92.0 L ABG pH 7.336 L ABG pCO2 51.0 H ABG pO2 68.0 L ABG HCO3 27.3 H ABG Total CO2 29 H ABG Base Excess 1 Bernabe Test + FiO2 % 21.0 Sodium 136 Potassium 3.5 Chloride 100 Carbon Dioxide 28 Anion Gap 11.5 BUN 10 Creatinine 0.83 Estimated GFR (MDRD) 68.00 BUN/Creatinine Ratio 12.04 Glucose 128 H Calcium 9.0 Total Bilirubin 0.30 AST 17 ALT < 6 L Alkaline Phosphatase 70 Ammonia Total Creatine Kinase 190 CK-MB (CK-2) 2.8 CK-MB (CK-2) % 1.22167 Troponin I 0.0140 Total Protein 6.6 Albumin 3.3 L Globulin 3.3 Albumin/Globulin Ratio 1.00 Urine Color Urine Clarity Urine pH Ur Specific [place] Urine Protein Urine Glucose (UA) Urine Ketones Urine Blood Urine Nitrite Urine Bilirubin Urine Urobilinogen Ur Leukocyte Esterase Urine Microscopic RBC Urine Microscopic WBC Ur Squamous Epith Cells Ur Renal Epithelial Cell Urine Bacteria Urine Opiates Screen Ur Oxycodone Screen Urine Methadone Screen Ur Propoxyphene Screen Ur Barbiturates Screen U Tricyclic Antidepress Ur Phencyclidine Scrn Ur Amphetamine Screen U Methamphetamines Scrn U Benzodiazepines Scrn Urine Cocaine Screen U Cannabinoids Screen 01/02/17 01/02/17 01/02/17 21:30 21:32 21:32 WBC RBC Hgb Hct MCV MCH MCHC RDW Coeff of Lynette Plt Count Immature Gran % (Auto) Neut % (Auto) Lymph % (Auto) Stone % (Auto) Eos % (Auto) Baso % (Auto) Immature Gran # (Auto) Neut # Lymph # Stone # Eos # Baso # Puncture Site O2 Saturation ABG pH ABG pCO2 ABG pO2 ABG HCO3 ABG Total CO2 ABG Base Excess Bernabe Test FiO2 % Sodium Potassium Chloride Carbon Dioxide Anion Gap BUN Creatinine Estimated GFR (MDRD) BUN/Creatinine Ratio Glucose Calcium Total Bilirubin AST ALT Alkaline Phosphatase Ammonia 22 Total Creatine Kinase CK-MB (CK-2) CK-MB (CK-2) % Troponin I Total Protein Albumin Globulin Albumin/Globulin Ratio Urine Color Yellow Urine Clarity Clear Urine pH 6.0 Ur Specific [place] 1.010 Urine Protein Negative Urine Glucose (UA) Negative Urine Ketones Negative Urine Blood Negative Urine Nitrite Negative Urine Bilirubin Negative Urine Urobilinogen 0.2 Ur Leukocyte Esterase 2+ Urine Microscopic RBC 0-2 Urine Microscopic WBC 10-20 Ur Squamous Epith Cells Not present Ur Renal Epithelial Cell 0-2 Urine Bacteria Trace Urine Opiates Screen Negative Ur Oxycodone Screen Negative Urine Methadone Screen Negative Ur Propoxyphene Screen Negative Ur Barbiturates Screen Negative U Tricyclic Antidepress Negative Ur Phencyclidine Scrn Negative Ur Amphetamine Screen Negative U Methamphetamines Scrn Negative U Benzodiazepines Scrn Positive Urine Cocaine Screen Negative U Cannabinoids Screen Negative Orders Category Date Time Status ABG DRAW REQUEST Stat CARDIO 01/02/17 21:11 Ordered EKG-(ED ONLY) Stat CARDIO 01/02/17 21:10 Ordered ABG Stat LAB 01/02/17 21:10 Completed AMMONIA Stat LAB 01/02/17 21:30 Completed CBC W/ AUTO DIFF Stat LAB 01/02/17 21:30 Completed COMPREHENSIVE METABOLIC PANEL Stat LAB 01/02/17 21:30 Completed CREATINE KINASE Stat LAB 01/02/17 21:30 Completed TROPONIN I Stat LAB 01/02/17 21:30 Completed URINALYSIS C & S IF INDICATED Stat LAB 01/02/17 21:32 Completed URINE CULTURE Stat LAB 01/02/17 21:50 Received URINE DRUG SCREEN (RAPID FOR ED) [DRUG SCREEN, URINE, LAB 01/02/17 21:32 Completed RAPID] Stat CT ABDOMEN/PELVIS WO CONTRAST Stat RADS 01/02/17 21:[address] CHEST W/O CONTRAST Stat RADS 01/02/17 21:[address] HEAD W/O CONTRAST Stat RADS 01/02/17 21:[address] LUMBAR SPINE W/O CONTRAST Stat RADS 01/02/17 21:12 Completed Vital Signs: Temp Pulse Resp BP Pulse Ox 01/02/17 20:50 97.3 F L 76 20 143/81 H 93 L Departure - Departure Time of Disposition: 22:40 Disposition: ADMITTED INPATIENT Discharge Problem: Altered mental status Instructions: Altered Mental Status (ED) Condition: Fair Pt referred to PMD for follow-up: Yes Allergies/Adverse Reactions: Allergies aspirin Adverse Reaction (Verified 06/04/16 10:42) Abdominal Pain Penicillins Adverse Reaction (Verified 06/04/16 10:42) Rash Home Medications: Ambulatory Orders Carbidopa/Levodopa [Carbidopa-Levo 25-100 mg Odt] 2 tab PO BEDTIME 12/30/12 Budesonide/Formoterol Fumarate [Symbicort 80-4.5 Mcg Inhaler] 2 puff IH BID 01/18 Clopidogrel Bisulfate [Clopidogrel] 75 mg PO DAILY 10/30/15 Ranitidine HCl [Zantac] 150 mg PO BIDAC 10/31/15 Ferrous Sulfate 325 mg PO BID #60 tablet 11/02/15 Losartan Potassium [Cozaar] 25 mg PO BID 08/18/16 Tizanidine HCl [Zanaflex] 4 mg PO PRN 08/18/16 Hydrocodone/Acetaminophen [[place]ley 7.5-325 Tablet] 1 each PO TID 10/30/16 Carbidopa/Levodopa [Carbidopa-Levo 25-100 mg Odt] 1 each PO DAILY 01/02/17 Disposition Discussed With: Patient, Family
[2017-01-02] MEDS ORDERED: SODIUM CHLORIDE 1,000 ML IV STA (22:47)
[2017-01-02] MEDS ORDERED: LEVAQUIN 500 MG in PREMIX 100 ML D5W 1 BAG IV SCH (23:00)
[2017-01-02] MEDS ORDERED: NON-FORMULARY MEDICATION (Tizanidine Hcl [Zanaflex] 4 MG) PO SCH ×22 (23:00)
[2017-01-02 23:42] VITALS: BMI 23.6
[2017-01-02] MEDS: DUONEB NEB SCH (23:50)
[2017-01-03] MEDS ORDERED: LEVAQUIN 100 ML IV ONE (00:18)
[2017-01-03] MEDS: DUONEB NEB SCH ×4 (04:36→23:08)
[2017-01-03 04:45] LABS: ANISOCYTOSIS NOT PRESENT (NOT PRESENT)
[2017-01-03 04:48] LABS: HEMATOCRIT 35.6 % (37.0-47.0); HEMOGLOBIN 11.9 g/dl (12.0-16.0); MEAN CORPUSCULAR HEMOGLOBIN 31.6 pg (27.0-31.0); MEAN CORPUSCULAR HGB CONC 33.4 (31.8-35.4); MEAN CORPUSCULAR VOLUME 94.7 fl (81.0-99.0); PLATELET COUNT 212 10^3/uL (140-440); RED BLOOD COUNT 3.76 10^6/ul (4.20-5.40); WHITE BLOOD COUNT 6.77 K/ul (4.6-10.2)
[2017-01-03 05:13] LABS: ALANINE AMINOTRANSFERASE < 6 U/L (12-78); ALBUMIN/GLOBULIN RATIO 1.03; ALKALINE PHOSPHATASE 63 U/L (53-141); ANION GAP 12.4; ASPARTATE AMINO TRANSFERASE 18 U/L (15-37); BILIRUBIN,TOTAL 0.26 mg/dL (0.00-1.20); BLOOD UREA NITROGEN 10 mg/dL (7-18); BUN/CREATININE RATIO 13.69; CALCIUM 8.9 mg/dL (8.2-10.2); CARBON DIOXIDE 27 mmol/L (23-31); CHLORIDE 103 mmol/L (98-107); CREATININE 0.73 mg/dL (0.60-1.30); GLUCOSE 95 mg/dL (82-115); POTASSIUM 3.4 mmol/L (3.5-5.10); SODIUM 139 mmol/L (136-145); TOTAL PROTEIN 5.9 g/dL (5.8-8.1)
[2017-01-03] MEDS: ZANTAC PO SCH ×2 (05:56→17:11)
[2017-01-03] MEDS ORDERED: GABAPENTIN PO SCH ×2 (09:00→09:19)
[2017-01-03] MEDS ORDERED: LEVODOPA PO SCH ×43 (09:00→21:00)
[2017-01-03] MEDS ORDERED: PROAIR HFA IH SCH (09:00)
[2017-01-03] MEDS ORDERED: CARBIDOPA PO SCH ×43 (09:00→21:00)
[2017-01-03] MEDS ORDERED: NON-FORMULARY MEDICATION (Ferrous Sulfate [Ferrous Sulfate] 325 MG) PO SCH ×22 (09:00)
[2017-01-03] MEDS ORDERED: NON-FORMULARY MEDICATION (Tizanidine Hcl [Zanaflex] 4 MG) PO PRN ×22 (09:18)
[2017-01-03] MEDS ORDERED: ZANAFLEX PO PRN (09:21)
[2017-01-03] MEDS: SPIRIVA IH SCH (09:25)
[2017-01-03] MEDS: SYMBICORT 80-4.5 MCG INHALER IH SCH ×2 (09:25→20:09)
[2017-01-03] MEDS: PLAVIX PO SCH (09:26)
[2017-01-03] MEDS: SINEMET 25-100 PO SCH ×2 (09:26→20:07)
[2017-01-03] MEDS: CARAFATE PO SCH ×3 (09:26→20:07)
[2017-01-03] MEDS: SINGULAIR PO SCH (09:26)
[2017-01-03] MEDS: COZAAR PO SCH ×2 (09:26→20:07)
[2017-01-03] MEDS: FERROUS SULFATE PO SCH (09:26)
[2017-01-03] MEDS: SOLU-MEDROL 40 MG IVP SCH ×2 (09:27→20:08)
[2017-01-03] MEDS: NORCO 7.5-325 PO SCH ×3 (09:29→20:06)
[2017-01-03] MEDS ORDERED: PROAIR HFA IH PRN (09:38)
[2017-01-03] MEDS ORDERED: K-DUR PO STA (11:05)
[2017-01-03] MEDS: NEURONTIN PO SCH (20:07)
[2017-01-03] MEDS: LEVAQUIN 500 MG in PREMIX 100 ML D5W 1 BAG IV SCH (20:14)
[2017-01-04] MEDS: DUONEB NEB SCH ×4 (05:00→22:48)
[2017-01-04] MEDS: ZANTAC PO SCH ×2 (05:51→16:35)
[2017-01-04] MEDS: NEURONTIN PO SCH ×2 (09:28→21:12)
[2017-01-04] MEDS: SPIRIVA IH SCH (09:28)
[2017-01-04] MEDS: SYMBICORT 80-4.5 MCG INHALER IH SCH ×2 (09:28→21:11)
[2017-01-04] MEDS: COZAAR PO SCH ×2 (09:28→21:12)
[2017-01-04] MEDS: FERROUS SULFATE PO SCH (09:28)
[2017-01-04] MEDS: PLAVIX PO SCH (09:28)
[2017-01-04] MEDS: SINGULAIR PO SCH (09:28)
[2017-01-04] MEDS: CARAFATE PO SCH ×3 (09:29→21:12)
[2017-01-04] MEDS: NORCO 7.5-325 PO SCH ×3 (09:29→21:12)
[2017-01-04] MEDS: SOLU-MEDROL 40 MG IVP SCH ×2 (09:29→21:13)
[2017-01-04] MEDS: SINEMET 25-100 PO SCH ×2 (09:29→21:12)
--- NOTE | 2017-01-04 14:56 | HP ---
DATE OF SERVICE: 01/02/17 CHIEF COMPLAINT: Change in mental status. HISTORY OF PRESENT ILLNESS: This is a 71-year-old female with a history of COPD, oxygen dependent was brought by the family has the patient has been confused, hallucinating, didn't know where she was, complaining of headache and back pain, cough and congestion seen by Dr. Lopez in the emergency room. White count was normal. ABGs showed pH 7.336, pc02 was 51.0, p02 68, glucose 128. Urine 2+ leukocyte esterase. Toxicology positive for benzo's. CT head no intracranial hemorrhage, Patchy low attention throughout the periventricular and subcortical white matter. Chronic microvascular changes. Mild generalized atrophy. CT of the chest done moderate sized hiatal hernia. CAD with calcifications. CT of abdomen and pelvis did not show any pathology. CT of the lumbar spine some arthropathy and arthritis. Ammonia levels were normal 22. At that time, the patient was admitted to the hospital with encephalopathy, change in mental status, urinary tract infection, c02 narcosis and bronchitis. REVIEW OF SYSTEMS: CONSTITUTIONAL: Weakness, tiredness. No fever, no chills. HEENT: Normal. ENDOCRINE: No weight gain; no weight loss. CVS: No chest pain. No PND, no orthopnea. No shortness of breath. No PND, no orthopnea. RESPIRATORY: Cough and congestion. No hemoptysis. GI: No nausea, no vomiting. No abdominal pain. No melena. : No hematuria. No polyuria. MUSCULOSKELETAL: No joint swelling. PSYCHIATRIC: Change in mental status, hallucination and fall. Not anxious. No depression. No suicidal thoughts. No homicidal thoughts. SKIN: Intact, no open lesions. PAST MEDICAL HISTORY: COPD, oxygen dependent Hypertension History of CVA, mini strokes Osteoarthritis DJD spine History of compression deformity in the back Osteoporosis Hiatal hernia Depression Anxiety PAST SURGICAL HISTORY: Total hysterectomy Appendectomy Cholecystectomy PERSONAL HISTORY: , smokes one pack every three days. No alcohol. No drugs. FAMILY HISTORY: Positive for DVT, hypertension, CHF, diabetes. MEDICATIONS: (HOME) Levodopa, Carbidopa, Symbicort, Plavix, Zantac, Ferrous Sulfate, Cozaar, Spiriva , ProAir, [place], Prolia, Sucralfate, Singulair, Neurontin ALLERGIES: PENICILLIN AND ASPIRIN PHYSICAL EXAMINATION: V/S: BP 143/81, respiratory rate 20, heart rate 76, temperature 97.3, saturation 93 on 2L. GENERAL: Cachetic appearing lady. HEENT: Atraumatic, normocephalic. No scleral icterus. Pallor positive. Mucosa dry. NECK: Supple. No JVD, no bruit. No lymphadenopathy. No thyromegaly. HEART: S1, S2 normal. No murmur. No cyanosis or clubbing. No ascites. LUNGS: Decreased basilar crackles. Mild expiratory wheeze, No rales or rhonchi. ABDOMEN: Soft, nontender. Bowel sounds are active. No CVA tenderness. No rigidity or guarding. EXTREMITIES: No cyanosis, clubbing or pedal edema. MUSCULOSKELETAL: Normal joints, no swelling. NEUROLOGIC: The patient is awake, alert, still confused to place and person. SKIN: Intact; no open lesions. LYMPHATIC: No lymph nodes palpable. LABS: Sodium 137, potassium 3.5, chloride 100, bicarb 20, BUN 10, creatinine 0.83. Glucose 128. White count 9.31, hemoglobin 12.5, hematocrit 37.9, platelet count 224. ABGs pH 7.336, pc02 51.0, p02 68. UA 2+ leukocyte esterase, nitrates negative. Bacteria trace. Toxicology - benzo is positive. ASSESSMENT: 1. ENCEPHALOPATHY 2. COPD EXACERBATION SECONDARY TO BRONCHITIS, ELEVATED PC02 3. URINE DRUG SCREEN POSITIVE FOR BENZO - THE PATIENT SHOULD NOT BE POSITIVE, SHE DOES NOT TAKE BENZO'S 4. HYPERTENSION 5. HISTORY OF MINI STROKES 6. DYSLIPIDEMIA 7. DEPRESSION 8. ANXIETY PLAN: 1. Admit the patient to the regular floor 2. CBC, CMP today and daily 3. Cardiac enzymes and troponins 4. IV fluids 5. Levaquin 6. Duonebs 7. Continue home medication s 8. Fall precautions 9. Will follow the patient in daily rounds TIME SPENT: MORE THAN 70 minutes MTDD
[2017-01-04] MEDS: LEVAQUIN 500 MG in PREMIX 100 ML D5W 1 BAG IV SCH (21:13)
[2017-01-04 23:29] VITALS: TEMP 97.9
[2017-01-05] MEDS: DUONEB NEB SCH (05:15)
[2017-01-05] MEDS: ZANTAC PO SCH (05:32)
[2017-01-05 06:30] VITALS: BP 158/84
--- NOTE | 2017-01-05 06:48 | PN ---
DATE OF SERVICE: 01/03/17 SUBJECTIVE: The patient is awake, alert and oriented. She knows where she is and everything. She knows about the positive Benzo's. She did not give a straight forward answer. She says she has also been having more cough and congestion, not using oxygen much but had a couple of falls. REVIEW OF SYSTEMS: CONSTITUTIONAL: No fever, no chills. HEENT: Normal. ENDOCRINE: No weight gain, no weight loss. CVS: No angina symptoms. No CHF symptoms. No palpitations. No atypical chest pain for CAD. No shortness of breath. No PND, no orthopnea. RESPIRATORY: No cough, no hemoptysis. GI: No nausea, no vomiting. No abdominal pain. : No hematuria. No polyuria. MUSCULOSKELETAL:. No joint swelling. PSYCHIATRIC: Not anxious. No depression. No suicidal thoughts. No homicidal thoughts. SKIN: Intact. No rash. PHYSICAL EXAMINATION: V/S: BP 159/75, respiratory rate 20, heart rate 61, temperature 98.2, saturation 98 on 2L. HEENT: Normocephalic, atraumatic. Mucosa dry, pallor positive. No icterus. NECK: Supple. No JVD, no carotid bruit. No lymphadenopathy. LUNGS: Decreased basilar crackles. Clear to auscultation. No rales or rhonchi. HEART: S1, S2 normal. No S3. No murmur, gallop or regurgitation. ABDOMEN: Soft, nontender. Bowel sounds active. No rigidity. No rebound or guarding. No CVA tenderness. EXTREMITIES: No clubbing, cyanosis or pedal edema. MUSCULOSKELETAL: No joint swelling. NEUROLOGIC: Awake, alert, oriented times three. No focal deficit. LYMPHATIC: No lymph nodes palpable. SKIN: Intact. LABS: White count 6.77, hemoglobin 11.9, hematocrit 35.6, platelet count 212. Sodium 139, potassium 3.4, chloride 103, bicarb 27, BUN 10, creatinine 0.73. ASSESSMENT: 1. ENCEPHALOPATHY 2. COPD EXACERBATION WITH C02 NARCOSIS 3. BRONCHITIS 4. URINARY TRACT INFECTION 5. HISTORY OF TIA 6. LARGE HIATAL SARAH IA 7. OSTEOARTHRITIS 8. OSTEOPOROSIS 9. COPD, OXYGEN DEPENDENT 10. HYPOKALEMIA PLAN: 1. Solu-Medrol q.12hr 2. Duonebs 3. Levaquin 4. IV fluids 5. Replace potassium with 40 mEq TIME SPENT: More than 35 minutes MTDD
[2017-01-05] MEDS: NEURONTIN PO SCH (09:12)
[2017-01-05] MEDS: SYMBICORT 80-4.5 MCG INHALER IH SCH (09:12)
[2017-01-05] MEDS: COZAAR PO SCH (09:13)
[2017-01-05] MEDS: NORCO 7.5-325 PO SCH (09:13)
[2017-01-05] MEDS: FERROUS SULFATE PO SCH (09:13)
[2017-01-05] MEDS: SINEMET 25-100 PO SCH (09:13)
[2017-01-05] MEDS: SINGULAIR PO SCH (09:13)
[2017-01-05] MEDS: PLAVIX PO SCH (09:13)
[2017-01-05] MEDS: SOLU-MEDROL 40 MG IVP SCH (09:13)
[2017-01-05] MEDS: CARAFATE PO SCH (09:13)
[2017-01-05] MEDS: SPIRIVA IH SCH (09:14)
--- NOTE | 2017-02-11 16:06 | PN ---
DATE OF SERVICE: 01/04/17 SUBJECTIVE: The patient is admitted status post change in mental status, encephalopathy and UTI. Drug screen is positive for benzo's. The patient does not take Benzo, does not remember how it got into her system. She is more awake and alert today. No fever, no chills. No PND, no orthopnea. REVIEW OF SYSTEMS: CONSTITUTIONAL: No fever, no chills. HEENT: Normal. ENDOCRINE: No weight gain, no weight loss. CVS: No angina symptoms. No CHF symptoms. No palpitations. No atypical chest pain for CAD. No shortness of breath. No PND, no orthopnea. RESPIRATORY: No cough, no hemoptysis. GI: No nausea, no vomiting. No abdominal pain. : No hematuria. No polyuria. MUSCULOSKELETAL:. No joint swelling. PSYCHIATRIC: Not anxious. No depression. No suicidal thoughts. No homicidal thoughts. SKIN: Intact. No rash. PHYSICAL EXAMINATION: V/S: BP 141/79, respiratory rate 23, heart rate 75, temperature 97.9. Saturation 98 on room air. HEENT: Normocephalic, atraumatic. Mucosa dry. Pallor positive. No icterus. NECK: Supple. No JVD, no carotid bruit. No lymphadenopathy. LUNGS: Decreased basilar crackles. Clear to auscultation. No rales or rhonchi. HEART: S1, S2 normal. No S3. No murmur, gallop or regurgitation. ABDOMEN: Soft, nontender. Bowel sounds active. No rigidity. No rebound or guarding. No CVA tenderness. EXTREMITIES: No clubbing, cyanosis or pedal edema. MUSCULOSKELETAL: No joint swelling. NEUROLOGIC: Awake, alert, oriented times three. No focal deficit. LYMPHATIC: No lymph nodes palpable. SKIN: Intact. LABS: White count 6.77, hemoglobin 11.9, hematocrit 35.6, platelet count 212. Sodium 139, potassium 3.4, chloride 103, bicarb 27, BUN 10, creatinine 0.73. ASSESSMENT: 1. STATUS POST CHANGE IN MENTAL STATUS WITH ENCEPHALOPATHY 2. URINARY TRACT INFECTION 3. COPD EXACERBATION SECONDARY TO BRONCHITIS 4. COPD, OXYGEN DEPENDENT 5. HYPERTENSION 6. DYSLIPIDEMIA 7. PARKINSON'S DISEASE 8 OSTEOPOROSIS WITH THORACIC COMPRESSION FRACTURE PLAN: 1. Continue IV fluids 2. Levofloxacin 3. Duonebs 4. Steroids 5. Daily I & O TIME SPENT: More than 35 minutes MTDD
--- NOTE | 2017-02-11 16:25 | DS ---
DATE OF SERVICE: 01/05/17 FINAL DIAGNOSIS: 1. STATUS POST ENCEPHALOPATHY FROM URINARY TRACT INFECTION 2. COPD EXACERBATION SECONDARY TO BRONCHITIS 3. C02 NARCOSIS 4. COPD, OXYGEN DEPENDENT 5. CONTINUE NICOTINE USE 6. HYPERTENSION 7. TIA 8. GERD 9. HIATAL HERNIA 10. ANEMIA 11. EARLY PARKINSON'S DISEASE 12. DEPRESSION 13. ANXIETY 14. OSTEOPOROSIS 15. TWO COMPRESSION FRACTURES WITH KYPHOPLASTY 16. HYSTERECTOMY 17. CHOLECYSTECTOMY 18. CATARACT SURGERY DISCHARGE INSTRUCTIONS: Followup appointment: [facility] Clinic within 5 to 7 days. Continue to use oxygen as it is helping the patient for ambulation. MEDICATIONS AT DISCHARGE: Albuterol Symbicort Carbidopa/Levodopa two tab p.o. bedtime Plavix Prolia Ferrous Sulfate Neurontin Hydrocodone Cozaar Singulair Spiriva Calcium and Vitamin D [id number] NEW PRESCRIPTIONS: Prednisone 10 mg twice a day for 5 days Cipro 250 mg twice a day for four days DIET INSTRUCTIONS: Cardiac and healthy diet ACTIVITY: Resume as tolerated SMOKING: Smoker DISEASE SPECIFIC EDUCATION: COPD in need of pneumonia vaccination Polysubstance and encephalopathy Medication use and encephalopathy discussed HOSPITAL COURSE: This is a 71-year-old female who is a COPD'r, c02 dependent, brought to the emergency room as the patient was acting funny and not herself. CT of head was negative. Urine drug screen was done. Benzo was positive. UA showed positive leukocyte esterase. ABGs were done which showed pH 7.336, pc02 51.0, p02 68. At that time, the patient is admitted to the hospital, started on IV Levaquin and IV fluids. With the given treatment and breathing treatments and steroids, the patient was more awake, alert by the next time, had some coughing and shortness of breath, did not have any problems, up and about walking. The patient's daughter was there, inquired about the patient. We are trying to figure out how the Benzo's got into the patient's system. The patient has no recollection of it but meanwhile, the patient was less short of breath, more awake and alert, no more confusion. As the patient was doing well, did not have any problems, the patient was scheduled for discharge. Random urine culture did not grow any organism but the patient was put on Ciprofloxacin for 3 more days with steroids. TIME SPENT: MORE THAN 55 MINUTES MTDD
== END 2017-01-05 10:06 | disposition home or self-care (01) | DRG 689 ==
LOC: ED 20:48 → MEDSURG A 22:54
PROVIDERS: ADMIT Emergency Medicine; ATTEND Emergency Medicine
DX: N39.0 Urinary tract infection, site not specified (principal); G93.40 Encephalopathy, unspecified; J44.1 Chronic obstructive pulmonary disease with (acute) exacerbation; J44.0 Chronic obstructive pulmonary disease with (acute) lower respiratory infection; R41.82 Altered mental status, unspecified; J20.9 Acute bronchitis, unspecified; M54.9 Dorsalgia, unspecified; R06.89 Other abnormalities of breathing; I10 Essential (primary) hypertension; F13.90 Sedative, hypnotic, or anxiolytic use, unspecified, uncomplicated; D64.9 Anemia, unspecified; K21.9 Gastro-esophageal reflux disease without esophagitis; K44.9 Diaphragmatic hernia without obstruction or gangrene; G20 Parkinson's disease; F41.8 Other specified anxiety disorders; M81.0 Age-related osteoporosis without current pathological fracture; M48.54XD Collapsed vertebra, not elsewhere classified, thoracic region, subsequent encounter for fracture with routine healing; R29.6 Repeated falls; F17.200 Nicotine dependence, unspecified, uncomplicated; E87.6 Hypokalemia; Z79.02 Long term (current) use of antithrombotics/antiplatelets; Z79.899 Other long term (current) drug therapy; Z86.73 Personal history of transient ischemic attack (TIA), and cerebral infarction without residual deficits; Z99.81 Dependence on supplemental oxygen; Z98.1 Arthrodesis status
CPT/HCPCS: 36415; 80053; 80306; 81001; 82140; 82550; 82553; 82803; 84484; 85007; 85025; 85027; 87086; 93005; 93010; 94640; 99223; 99233; 99239; 99284

== ENCOUNTER 2017-06-01 12:35 | Outpatient (CLI) | END 2017-06-01 12:36 | disposition home or self-care (01) | LOC: LAB 12:35 | PROVIDERS: ATTEND Emergency Medicine | DX: I10 Essential (primary) hypertension (principal); K21.9 Gastro-esophageal reflux disease without esophagitis; D50.0 Iron deficiency anemia secondary to blood loss (chronic); M81.0 Age-related osteoporosis without current pathological fracture | CPT/HCPCS: 36415; 80053; 80061; 82306; 82607; 84443; 85025 ==

== ENCOUNTER 2017-06-05 15:12 | Outpatient (CLI) | payer OTHER | END 2017-06-05 15:13 | disposition home or self-care (01) | LOC: RHC-LAB 15:12 | PROVIDERS: ATTEND Emergency Medicine | DX: D50.0 Iron deficiency anemia secondary to blood loss (chronic) (principal) | CPT/HCPCS: 36415; 82607; 82728; 82746; 83540; 83550; 84466; 85025; 85045 ==

== ENCOUNTER 2017-06-18 12:20 | Outpatient (CLI) | payer OTHER | END 2017-06-18 12:21 | disposition home or self-care (01) | LOC: LAB 12:20 | PROVIDERS: ATTEND Emergency Medicine | DX: D50.0 Iron deficiency anemia secondary to blood loss (chronic) (principal) | CPT/HCPCS: 36415; 85025 ==

== ENCOUNTER 2017-07-11 17:04 | Observation (INO) | payer OTHER ==
[2017-07-11 17:57] VITALS: BMI 25.1
[2017-07-11] MEDS ORDERED: TYLENOL PO PRN (19:11)
[2017-07-11] MEDS ORDERED: SODIUM CHLORIDE 1,000 ML IV SCH (19:30)
--- NOTE | 2017-07-11 20:29 | CT ---
EXAM: CT head without contrast. HISTORY: Altered mental status. PROCEDURE: Contiguous axial CT images of the head without contrast with coronal and sagittal reforma ts. FINDINGS: Comparison made with CT of 01/02/2017. There is mild diffuse cerebral atrophy. The ventric les and basal cisterns are normal in size and configuration. No evidence of mass or midline shift. No intracranial hemorrhage or evidence of large vessel infarct. No extra-axial fluid collection. Th ere are chronic small vessel ischemic changes in the white matter. The visualized paranasal sinuses a nd mastoid air cells are well-aerated and normal in appearance. Impression: Stable CT head compared with CT of 01/02/2017. No intracranial hemorrhage or evidence of large vessel infarct. Chronic small vessel ischemic changes. Diffuse cerebral atrophy.
--- NOTE | 2017-07-11 20:44 | DI ---
EXAM: AP single view of the chest. HISTORY: Shortness of breath. FINDINGS: The bones are unremarkable. The cardiac silhouette and pulmonary vasculature are within no rmal limits. There is a moderate hiatal hernia. The costophrenic angles are clear. No infiltrate o r consolidation. No pneumothorax. Impression: No acute cardiopulmonary disease. Hiatal hernia.
[2017-07-11] MEDS ORDERED: LEVODOPA PO SCH (21:00)
[2017-07-11] MEDS ORDERED: COZAAR PO SCH (21:00)
[2017-07-11] MEDS ORDERED: GABAPENTIN PO SCH (21:00)
[2017-07-11] MEDS ORDERED: NON-FORMULARY MEDICATION (Ferrous Sulfate [Ferrous Sulfate] 325 MG) PO SCH (21:00)
[2017-07-11] MEDS ORDERED: CARBIDOPA PO SCH (21:00)
[2017-07-11] MEDS ORDERED: SYMBICORT 80-4.5 MCG INHALER IH SCH (21:00)
[2017-07-11] MEDS ORDERED: CARAFATE PO SCH (21:00)
[2017-07-11] MEDS ORDERED: SINEMET 25-100 ONE ×2 (22:13→22:18)
[2017-07-11] MEDS: PROTONIX PO SCH (22:20)
[2017-07-11] MEDS: DUONEB NEB SCH (23:00)
[2017-07-12] MEDS: DUONEB NEB SCH ×2 (04:30→14:14)
[2017-07-12] MEDS ORDERED: NON-FORMULARY MEDICATION (Ropinirole Hcl [Requip] 0.5 MG) PO SCH (09:00)
[2017-07-12] MEDS ORDERED: COZAAR PO SCH (09:00)
[2017-07-12] MEDS ORDERED: SPIRIVA IH SCH (09:00)
[2017-07-12] MEDS ORDERED: PLAVIX PO SCH (09:00)
[2017-07-12] MEDS ORDERED: SYMBICORT 80-4.5 MCG INHALER IH SCH (09:00)
[2017-07-12] MEDS ORDERED: GABAPENTIN PO SCH (09:00)
[2017-07-12] MEDS ORDERED: NON-FORMULARY MEDICATION (Ferrous Sulfate [Ferrous Sulfate] 325 MG) PO SCH (09:00)
[2017-07-12] MEDS: CARAFATE PO SCH ×2 (10:29→18:05)
[2017-07-12] MEDS: PROTONIX PO SCH (10:30)
[2017-07-12] MEDS: NORCO 7.5-325 PO SCH ×2 (10:33→18:09)
[2017-07-12] MEDS: COREG PO SCH ×2 (10:37→18:08)
[2017-07-12] MEDS: PROAIR HFA IH SCH ×3 (10:37→17:40)
--- NOTE | 2017-07-12 12:52 | US ---
Exam: Carotid Doppler ultrasound with color flow, grayscale and spectral doppler HISTORY: Dizziness FINDINGS RIGHT: Atherosclerotic calcification of the distal common carotid artery, bulb, proximal and mid internal ca rotid artery. The plaque burden is subjectively less than 50%. The arterial waveforms are normal.Th e peak systolic velocities in the right internal and common carotid are 150 and 19 cm/sec respectivel y With a ratio of 1.7. Corresponding diastolic velocities are 40 and 30 cm/sec respectively. Verte bral flow is antegrade. IMPRESSION RIGHT: Mild plaquing with mild (< 50%) narrowing by velocities. FINDINGS LEFT: Calcified plaquing of the distal common carotid, bulb, proximal and mid internal carotid artery. Subj ective plaque burden is less than 50%. The arterial waveforms are normal.The peak systolic velocitie s in the left internal and common carotid are 130 and 90 cm/sec respectively with a ratio of 1.5. Co rresponding diastolic velocities are 40 and 30 cm/sec respectively. Vertebral flow is antegrade. IMPRESSION LEFT: Mild plaquing with mild (< 50%) narrowing by velocities.
[2017-07-12 13:33] VITALS: BP 126/65; TEMP 98
[2017-07-12] MEDS: CARBIDOPA PO SCH ×2 (18:00→18:09)
[2017-07-12] MEDS: LEVODOPA PO SCH ×2 (18:00→18:09)
[2017-07-12] MEDS ORDERED: SINGULAIR PO SCH (21:00)
--- NOTE | 2017-08-10 08:58 | PN ---
DATE OF SERVICE: 07/11/17 SUBJECTIVE: This is a 71-year-old female admitted with dizziness, weakness and status post change in mental status. Hemoglobin is 10.5. CT head is negative. The patient is more awake and alert today. No slurred speech. REVIEW OF SYSTEMS: CONSTITUTIONAL: Weakness. No fever, no chills. HEENT: Normal. ENDOCRINE: No weight gain, no weight loss. CVS: No angina symptoms. No CHF symptoms. No palpitations. No atypical chest pain for CAD. No shortness of breath. No PND, no orthopnea. RESPIRATORY: No cough, no hemoptysis. GI: No nausea, no vomiting. No abdominal pain. : No hematuria. No polyuria. MUSCULOSKELETAL: No joint swelling. PSYCHIATRIC: Not anxious. No depression. No suicidal thoughts. No homicidal thoughts. SKIN: Intact. No rash. PHYSICAL EXAMINATION: V/S: BP 126/65, respiratory rate 18, heart rate 65, temperature 98.0, saturation 100%. Cachetic lady. HEENT: Normocephalic, atraumatic. Mucosa dry, pallor positive, no icterus. NECK: Supple. No JVD, no carotid bruit. No lymphadenopathy. LUNGS: Clear to auscultation. No rales or rhonchi. HEART: S1, S2 normal. No S3. No murmur, gallop or regurgitation. ABDOMEN: Soft, nontender. Bowel sounds active. No rigidity. No rebound or guarding. No CVA tenderness. SPRING LAYER: Essential tremors present in the hand. EXTREMITIES: No cyanosis, clubbing or pedal edema. MUSCULOSKELETAL: No joint swelling. NEUROLOGIC: Awake, alert, oriented times three. No focal deficit. LYMPHATIC: No lymph nodes palpable. SKIN: Intact. LABS: Sodium 140, potassium 4.1, chloride 105, bicarb 26, BUN 17, creatinine 9, glucose 90. White count 6.14, hemoglobin 10.5, hematocrit 33.9, platelet count 259. ASSESSMENT: 1. STATUS POST CHANGE IN MENTAL STATUS AND SLURRED SPEECH MOST LIKELY TIA, NO RESIDUAL WEAKNESS AT THIS TIME. CT SCAN IS NEGATIVE. 2. ANEMIA 3. POLYPHARMACY 4. HYPERTENSION 5. DYSLIPIDEMIA 6. OSTEOARTHRITIS 7. DJD SPINE 8. OSTEOPOROSIS 9. COPD, OXYGEN DEPENDENT PLAN: 1. Carotid ultrasound 2. Continue home medication 3. Duonebs 4. Breathing treatments 5. Daily I & O 6. Negative UA 7. Fall precaution TIME SPENT: More than 35 minutes MTDD
--- NOTE | 2017-08-13 11:03 | DS ---
DATE OF SERVICE: 07/12/17 FINAL DIAGNOSIS: 1. COPD EXACERBATION SECONDARY TO BRONCHITIS 2. ANEMIA WITH NEGATIVE OCCULT BLOOD TEST 3. COPD 4. BILATERAL RESTLESS LEG SYNDROME 5. HYPERTENSION 6. HIATAL HERNIA 7. STATUS POST CHOLECYSTECTOMY 8. APPENDECTOMY 9. HYSTERECTOMY 10. FRACTURE L1 11. OSTEOPOROSIS 12. DEPRESSION/ANXIETY DISCHARGE INSTRUCTIONS: 1. Discharge patient to home. 2. Followup in the [facility] within 4 to 5 days. [address] Flores on 07/09/17, for endoscopy, colonoscopy and evaluation of anemia. MEDICATIONS AT DISCHARGE: Albuterol Levodopa Carbidopa Plavix Vitamin B12 Prolia Neurontin Cozaar Protonix Prednisone Requip Sucralfate Bactrim Tiotropium [place] Symbicort Coreg Ferrous Sulfate NEW PRESCRIPTIONS: Coreg 6.25 mg p.o. twice a day, Breakfast and supper DIET INSTRUCTIONS: Cardiac and Healthy. ACTIVITY: As much as tolerated. DISEASE SPECIFIC EDUCATION: Anemia, GI bleed, Plavix and difficult GI bleed discussed, verbalized understanding. HOSPITAL COURSE: This is a 71-year-old female with multiple medical problems, COPD, oxygen dependent. She came to the office complaining of worsening shortness of breath, cough and congestion. Hemoglobin was 12.5 and dropped to 8. Gradually feeling weak and tired, short of breath, looking pale per daughter. She had cough and congestion with more wheezing so admitted to the hospital. Hemoglobin 8.8. BUN and creatinine normal. Given steroids and breathing treatments. Gradually started feeling better. Hemoglobin even with hemidilution did not change 8.8, 9.1 and 8.7. Blood transfusion was not given as the patient was not symptomatic at that time. Shortness of breath was attributed to the upper respiratory infection and bronchitis. With the given dose of steroids, breathing treatment and antibiotic, the patient started feeling better, up and about and walking. The patient and family were reassured that the patient needs endoscopy and colonoscopy and will be evaluating as an outpatient with Dr. Flores and appointment being made with Dr. Flores on 07/09. TIME SPENT: MORE THAN 65 MINUTES MTDD
== END 2017-07-12 18:45 | disposition home or self-care (01) ==
LOC: MEDSURG A 17:04
PROVIDERS: ADMIT Emergency Medicine; ATTEND Emergency Medicine
DX: J44.1 Chronic obstructive pulmonary disease with (acute) exacerbation (principal); J44.0 Chronic obstructive pulmonary disease with (acute) lower respiratory infection; J06.9 Acute upper respiratory infection, unspecified; J20.9 Acute bronchitis, unspecified; D64.9 Anemia, unspecified; R06.02 Shortness of breath; R41.82 Altered mental status, unspecified; R42 Dizziness and giddiness; G25.81 Restless legs syndrome; I10 Essential (primary) hypertension; K44.9 Diaphragmatic hernia without obstruction or gangrene; F32.9 Major depressive disorder, single episode, unspecified; F41.9 Anxiety disorder, unspecified; M19.90 Unspecified osteoarthritis, unspecified site; E78.5 Hyperlipidemia, unspecified; F17.210 Nicotine dependence, cigarettes, uncomplicated; Z79.02 Long term (current) use of antithrombotics/antiplatelets; Z79.899 Other long term (current) drug therapy; Z99.81 Dependence on supplemental oxygen
CPT/HCPCS: 36415; 80053; 82550; 82553; 84484; 85025; 93005; 93010; 94640; 99217; 99220

== ENCOUNTER 2017-07-19 12:55 | Outpatient (CLI) | payer OTHER ==
--- NOTE | 2017-07-19 14:43 | MRI ---
EXAM: MRI brain without IV contrast. DATE: 2017. HISTORY: Transient global amnesia. TECHNIQUE: Sagittal T1W, axial T2W, axial FLAIR, axial T1W, axial DWI, and coronal T2W GRE sequences of the brain were obtained using 1.2 Lauren magnet. No IV contrast. Note: Motion artifacts on multiple sequences limit the overall sensitivity of the examination. COMPARISON: CT head 11 February 2015. FINDINGS: The ventricles and cisterns are normal in size and configuration. Some cerebral and cereb ellar sulci are slightly prominent due to involutional change. No midline shift, mass effect or abno rmal extra-axial fluid collection is apparent. A T2W bright, T1W/FLAIR dark, 5.2 x 5.3 mm focus near the left paramidline superior margin of the genu corpus callosum is likely old infarct vs neural gli al cyst. 2 mm T2W bright, T1W/FLAIR dark focus in the left frontal liriano radiata on axial image #15 may represent an old infarct. No acute infarct, hemorrhage or neoplasm is identified. Extensive T2 W/FLAIR hyperintensity is observed in the liriano radiata, centrum semiovale and subcortical white mat ter both cerebral hemispheres. Broad areas of T2W/FLAIR hyperintense are also demonstrated in the po ns. DWI slightly more intense in the head bright signal in the left paramidline janice appears to have ADC map dark signal. The hernandez - white matter differentiation is normal. The 7th/8th cranial nerve c omplexes, cerebellopontine angles, and visible cervical spinal cord are normal. There is no cerebell ar tonsillar ectopia. The pituitary gland is small in size, with CSF filling much of the pituitary f curt. Corpus callosum is normal in size and configuration. Flow voids are present in the major intra cranial arteries and in the dural venous sinuses. No aneurysm, AVM or dural venous sinus thrombosis is apparent. Appearance in the lens of each eye suggests prior cataract surgery. No other orbit abn ormality is identified. There is limited number of pneumatized air cells. The mastoid air cells are unremarkable. Frontal sinuses are hypoplastic. There is no acute sinusitis. No neck mass or lymph adenopathy is detected. No calvarial neoplasm or acute fracture is evident. IMPRESSIONS: 1. DWI mildly bright signal in the left paramidline janice. DDX: Shine through artifact, subacute/fa ding infarct, other artifact. 2. No acute infarct, hemorrhage, intra-axial malignancy or hydrocephalus. 3. 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 4. Extensive supratentorial and brainstem T2W hyperintensity. DDX: Small vessel disease or chronic hypertensive encephalopathy is likely. Osmotic demyelination syndrome, other demyelination process, sequela of infection, or vasculitis are not less likely considerations. 5. Minor cerebral and cerebellar atrophy. 6. Small pituitary gland - nearly empty sella. 7. Limited pneumatization of mastoid air cells. Note: Findings discussed with Dr. Dunbar at 1435 hrs, 07/19/2017.
== END 2017-07-19 12:56 | disposition home or self-care (01) ==
LOC: RAD 12:55
PROVIDERS: ATTEND Emergency Medicine
DX: G45.4 Transient global amnesia (principal); R47.81 Slurred speech

== ENCOUNTER 2017-07-19 15:48 | Inpatient (IN) | payer OTHER ==
[2017-07-19 16:19] VITALS: BMI 23.1
[2017-07-19] MEDS: COREG PO SCH (17:52)
[2017-07-19] MEDS: SODIUM CHLORIDE 1,000 ML IV SCH (17:52)
[2017-07-19] MEDS ORDERED: FERROUS SULFATE ONE (19:21)
[2017-07-19] MEDS: SYMBICORT 80-4.5 MCG INHALER IH SCH (20:35)
[2017-07-19] MEDS: COZAAR PO SCH (20:35)
[2017-07-19] MEDS ORDERED: NON-FORMULARY MEDICATION (Gabapentin [Gabapentin] 600 MG) PO SCH (21:00)
[2017-07-19] MEDS ORDERED: NORCO 7.5-325 PO SCH ×2 (21:00→23:30)
[2017-07-19] MEDS ORDERED: CARAFATE PO SCH (21:00)
[2017-07-19] MEDS ORDERED: GABAPENTIN PO SCH (21:00)
[2017-07-19] MEDS ORDERED: NON-FORMULARY MEDICATION (Ferrous Sulfate [Ferrous Sulfate] 325 MG) PO SCH (21:00)
[2017-07-19] MEDS ORDERED: PREDNISONE PO SCH (21:00)
[2017-07-19] MEDS ORDERED: PROTONIX PO SCH (21:00)
[2017-07-19] MEDS: TYLENOL PO PRN (21:44)
[2017-07-19] MEDS: DUONEB NEB SCH (22:00)
[2017-07-19] MEDS: NORCO 7.5-325 PO SCH (23:28)
[2017-07-20] MEDS: DUONEB NEB SCH ×3 (04:48→21:57)
[2017-07-20] MEDS ORDERED: CARBIDOPA PO SCH (09:00)
[2017-07-20] MEDS ORDERED: LEVODOPA PO SCH (09:00)
[2017-07-20] MEDS ORDERED: NON-FORMULARY MEDICATION (Ropinirole Hcl [Requip] 0.5 MG) PO SCH (09:00)
[2017-07-20] MEDS: SYMBICORT 80-4.5 MCG INHALER IH SCH ×2 (09:03→20:26)
[2017-07-20] MEDS: SPIRIVA IH SCH (09:03)
[2017-07-20] MEDS: BACTRIM DS 800/160 MG PO SCH ×3 (09:07→20:25)
[2017-07-20] MEDS: CARAFATE PO SCH ×3 (09:08→17:09)
[2017-07-20] MEDS: COREG PO SCH ×2 (09:08→17:10)
[2017-07-20] MEDS: NEURONTIN PO SCH ×2 (09:08→20:25)
[2017-07-20] MEDS: PREDNISONE PO SCH ×2 (09:08→17:10)
[2017-07-20] MEDS: COZAAR PO SCH ×2 (09:08→20:25)
[2017-07-20] MEDS: SINEMET 25-100 PO SCH (09:08)
[2017-07-20] MEDS: FERROUS SULFATE PO SCH ×2 (09:09→20:26)
[2017-07-20] MEDS: LOVENOX SUBCUT SCH (09:09)
[2017-07-20] MEDS: NORCO 7.5-325 PO SCH ×3 (09:09→20:26)
[2017-07-20] MEDS: TYLENOL PO PRN (10:04)
--- NOTE | 2017-07-20 16:09 | RS.OTINEVL ---
Subjective - Patient information Date of Evaluation: 07/20/17 Date of Arrival on Unit: 07/19/17 Admitted From:: Home Usual Living Arrangement: Alone Living Arrangement Comments: Pt lives in an apartment alone. Pt uses a rollator walker some of the time. Pt has [employer] to help her with cleaning of her apartment. Home Environment: Apartment Medical History: Hypertension, CVA/TIA, COPD Medical History Comments:: TIA, headaches, HTN, hiatal hernia, respiratory disorders, appendectomy, cholecystectomy, anemia, lap hima, DVT, Cervical CA. Surgical History: Hysterectomy Pain Assessment - Pain Pain Score: 0 Interventions - Objective Patient Orientation: Person, Place Current Interventions: IV's, Oxygen, Telemetry Observation: Pt is spunky and has a difficult time sitting still. Pt is weak and has impaired balance. Pt is impulsive and does not always listen to directions for safety. Interventions - ROM Right Upper Extremity AROM: WFL's Left Upper Extremity AROM: WFL's - Strength Right Upper Extremity Strength: Mild Weakness Left Upper Extremity Strength: Mild Weakness - Sensation Right Upper Extremity Sensation: Intact/Normal Left Upper Extremity Sensation: Intact/Normal Balance - Sitting Balance Static Sitting Balance: Fair Dynamic Sitting Balance: Fair - Standing Balance Static Standing Balance: Fair Dynamic Standing Balance: Fair ADL Skills - Self Feeding Self Feeding: Independent - Grooming Grooming: CGA - Bathing Bathing UE: CGA Bathing LE: CGA - Dressing Dressing UE: CGA Dressing LE: CGA - Toilet Management Toileting Management: CGA Functional Mobility - Bed Mobility Rolling R/L: Independent Scooting: Independent Supine to Sit: Independent Sit to Supine: Independent - Transfers Sit to Stand: Supervision Stand to Sit: Supervision Stand Pivot Transfers: Supervision - Ambulation Weight Bearing Status: FWB Assistance needed with Ambulation: CGA Comments:: uses a rollator, but is impulsive. - Safety Awareness Safety Awareness: Fair AMMON INDEX SCORE: . Additional Treatment Performed - Time with patient Total treatment time: 24 Activities Patient Interests:: Watching Television Patient Education Patient Education: Education of diagnosis, Home Safety, Education of Plan of Care Teaching Recipient: Patient Teaching Methods: Discussion Assessment Problem List:: Decreased level of function, Requires training/education, Decreased safety/Risk of falls, Weakness Rehab Potential: Good Further Therapy Indicated?: Yes Evaluation Complexity: HISTORY: Low, EXAM OF BODY SYSTEMS: Low, CLINICAL DECISION MAKING: Low Short Term Goals - Goals GOAL 1: Pt to be safe with functional mobility for self care. Goal to be met by: 07/25/17 GOAL 2: Pt to increase BUE strength to 4/5 for UB dressing. Goal to be met by: 07/25/17 GOAL 3: Pt to increase dyn. std. bal. to G-/F+ Goal to be met by: 07/25/17 Care Home Goals GOAL 1: Pt to be (I) with self care management. Goal to be met by: 07/27/17 GOAL 2: Pt to increase BUE strength to 4+/5 for UB dressing. Goal to be met by: 07/27/17 GOAL 3: Pt to increase dyn. std. bal. to G+ Goal to be met by: 07/27/17 Plan Plan of Care: Therapeutic EX, Neuromuscular Re-Educ, Therapeutic Activity, Self- Care/Home Management Frequency of Treatment: 1-2 X day, as tolerated Duration of Treatment: 1 Week Anticipated Discharge Destination: Home Treatment Diagnosis (ICD 10 Codes): M62.81, R26.81, Z74.1 Has the Physician been added for Co-signature?: Yes
[2017-07-20] MEDS: PROTONIX PO SCH (17:10)
[2017-07-20] MEDS: SODIUM CHLORIDE 1,000 ML IV SCH (18:04)
[2017-07-20] MEDS: SINGULAIR PO SCH (20:25)
[2017-07-20] MEDS: REQUIP PO SCH (20:25)
[2017-07-20] MEDS ORDERED: MELATONIN PO SCH (21:00)
[2017-07-20] MEDS ORDERED: PYRIDOXINE HCL PO SCH (21:00)
[2017-07-21] MEDS: DUONEB NEB SCH ×3 (04:16→21:55)
[2017-07-21] MEDS: CARAFATE PO SCH ×3 (05:42→16:50)
[2017-07-21] MEDS: PROTONIX PO SCH ×2 (05:42→16:49)
[2017-07-21] MEDS: SYMBICORT 80-4.5 MCG INHALER IH SCH ×2 (08:38→21:03)
[2017-07-21] MEDS: SPIRIVA IH SCH (08:39)
[2017-07-21] MEDS: COREG PO SCH ×2 (08:39→16:49)
[2017-07-21] MEDS: NEURONTIN PO SCH ×2 (08:39→21:02)
[2017-07-21] MEDS: FERROUS SULFATE PO SCH ×2 (08:39→21:02)
[2017-07-21] MEDS: SINEMET 25-100 PO SCH (08:40)
[2017-07-21] MEDS: NORCO 7.5-325 PO SCH ×3 (08:40→21:06)
[2017-07-21] MEDS: PREDNISONE PO SCH ×2 (08:40→16:49)
[2017-07-21] MEDS: BACTRIM DS 800/160 MG PO SCH ×2 (08:41→21:03)
[2017-07-21] MEDS: COZAAR PO SCH ×2 (08:41→21:03)
[2017-07-21] MEDS: LOVENOX SUBCUT SCH (08:42)
[2017-07-21] MEDS: SODIUM CHLORIDE 1,000 ML IV SCH (17:29)
[2017-07-21] MEDS: REQUIP PO SCH (21:02)
[2017-07-21] MEDS: SINGULAIR PO SCH (21:03)
[2017-07-21] MEDS: MELATONIN PO SCH (21:04)
[2017-07-21] MEDS: PYRIDOXINE HCL PO SCH (21:04)
[2017-07-22] MEDS: DUONEB NEB SCH ×3 (05:05→21:48)
[2017-07-22] MEDS: PROTONIX PO SCH ×2 (05:38→17:54)
[2017-07-22] MEDS: CARAFATE PO SCH ×3 (05:38→17:54)
[2017-07-22] MEDS: BACTRIM DS 800/160 MG PO SCH ×2 (08:42→21:04)
[2017-07-22] MEDS: COREG PO SCH ×2 (08:42→17:54)
[2017-07-22] MEDS: FERROUS SULFATE PO SCH ×2 (08:42→21:00)
[2017-07-22] MEDS: LOVENOX SUBCUT SCH (08:42)
[2017-07-22] MEDS: NEURONTIN PO SCH ×2 (08:42→21:00)
[2017-07-22] MEDS: SINEMET 25-100 PO SCH (08:42)
[2017-07-22] MEDS: SPIRIVA IH SCH (08:42)
[2017-07-22] MEDS: SYMBICORT 80-4.5 MCG INHALER IH SCH ×2 (08:42→21:01)
[2017-07-22] MEDS: COZAAR PO SCH ×2 (08:43→21:01)
[2017-07-22] MEDS: PREDNISONE PO SCH ×2 (08:43→17:54)
[2017-07-22] MEDS: NORCO 7.5-325 PO SCH ×3 (08:43→21:04)
[2017-07-22] MEDS ORDERED: VASOTEC IV IVP STA (18:42)
[2017-07-22] MEDS ORDERED: LASIX IVP STA (18:42)
[2017-07-22] MEDS: SINGULAIR PO SCH (21:00)
[2017-07-22] MEDS: REQUIP PO SCH (21:00)
[2017-07-22] MEDS: PYRIDOXINE HCL PO SCH (21:01)
[2017-07-22] MEDS: MELATONIN PO SCH (21:01)
[2017-07-23] MEDS: DUONEB NEB SCH ×2 (05:10→13:38)
[2017-07-23] MEDS: PROTONIX PO SCH ×2 (05:37→16:45)
[2017-07-23] MEDS: CARAFATE PO SCH ×3 (05:37→16:45)
[2017-07-23] MEDS ORDERED: VASOTEC IV IVP STA (06:12)
[2017-07-23] MEDS: SPIRIVA IH SCH (09:00)
[2017-07-23] MEDS: SYMBICORT 80-4.5 MCG INHALER IH SCH ×2 (09:00→20:38)
[2017-07-23] MEDS: FERROUS SULFATE PO SCH ×2 (09:01→20:40)
[2017-07-23] MEDS: SINEMET 25-100 PO SCH (09:02)
[2017-07-23] MEDS: COREG PO SCH ×2 (09:02→16:45)
[2017-07-23] MEDS: PREDNISONE PO SCH ×2 (09:02→16:45)
[2017-07-23] MEDS: BACTRIM DS 800/160 MG PO SCH ×2 (09:02→20:40)
[2017-07-23] MEDS: COZAAR PO SCH ×2 (09:03→20:39)
[2017-07-23] MEDS: NEURONTIN PO SCH ×2 (09:03→20:39)
[2017-07-23] MEDS: NORCO 7.5-325 PO SCH ×3 (09:03→20:39)
[2017-07-23] MEDS: AGGRENOX CAPSULE PO SCH ×2 (09:04→20:39)
--- NOTE | 2017-07-23 10:04 | RS.PTINEVL ---
Subjective - Patient information Date of Evaluation: 07/23/17 Date of Arrival on Unit: 07/19/17 Admitted From:: Home Usual Living Arrangement: Alone Living Arrangement Comments: Pt lives in an apartment alone. Pt uses a rollator walker some of the time. Pt has [employer] to help her with cleaning of her apartment. Home Environment: Apartment Medical History: Hypertension, CVA/TIA, COPD Medical History Comments:: TIA, headaches, HTN, hiatal hernia, respiratory disorders, appendectomy, cholecystectomy, anemia, lap hima, DVT, Cervical CA. Surgical History: Hysterectomy Subjective Information/ Patient Comments:: States she is walking much better than she did when this started. States she has not dizziness when up walking. Her daughter states she uses a rollator at home at times. States she was a little unsteady at times with her walking prior to this admission. - Level of function Prior to this admission, the patient could do the following:: Independent Selfcare, Independent ADL's, Independent Ambulation, Participated in Social Activities Outside home Current Equipment Used at Home: Rollator Interventions - Objective Patient Orientation: Person, Place, Time, Situation Current Interventions: Oxygen, Telemetry Range of Motion - ROM Right Upper Extremity AROM: WFL's Left Upper Extremity AROM: WFL's Right Lower Extremity AROM: WFL's Left Lower Extremity AROM: WFL's Muscle Strength - Muscle Strength Comments:: LE strength 4+/5 throughout. Sensation - Sensation Comments: Denies tingling or numbness in LE's. Balance - Sitting Balance and Reactions Static Sitting Balance: Good Dynamic Sitting Balance: Good - Standing Balance and Reactions Static Standing Balance: Good Dynamic Standing Balance: Good Functional Mobility - Bed Mobility Rolling R/L: Independent Scooting: Independent Supine to Sit: Independent Sit to Supine: Independent - Transfers Sit to Stand: Independent Stand to Sit: Independent Stand Pivot Transfers: Supervision - Safety Awareness Safety Awareness: Fair AMMON INDEX SCORE: NT Ambulation - Ambulation Weight Bearing Status: FWB Assistive Device Used: Rollator Distance: 200 feet Assistance needed with Ambulation: Supervision Gait Deviations: Short stride Treatment time - Time with patient Total treatment time: 17 (mins) Assessment - Assessment Further Therapy Indicated?: No Evaluation Complexity: HISTORY: Low, EXAM OF BODY SYSTEMS: Low, CLINICAL PRESENTATION: Low, CLINICAL DECISION MAKING: Low Plan Frequency of Treatment: One time treatment Duration of Treatment: One Time Treatment Anticipated Discharge Destination: Home Treatment Diagnosis (ICD 10 Codes): Z91.81 HIstory of falls Has the Physician been added for Co-signature?: Yes
--- NOTE | 2017-07-23 10:12 | CT ---
EXAM: CT BRAIN HISTORY: Headache TECHNIQUE: CT brain without intravenous contrast. 5-mm axial sections with Reformations. COMPARISON: 07/11/2017 FINDINGS: There is mild generalized atrophy. There is moderate periventricular and deep white matter low attenu ation which although nonspecific is suggestive of chronic microvascular ischemic change. These findi ngs are stable. Brain otherwise is unremarkable without evidence of hemorrhage or large vessel distribution recent is chemic infarction. There is no suggestion of acute hydrocephalus or subdural fluid collection. No m ass or mass effect. Cranium is within normal limits. Mastoid processes are aerated. The visualized paranasal sinuses a re clear. IMPRESSION: No acute intracranial process.
--- NOTE | 2017-07-23 13:44 | PN ---
DATE OF SERVICE: 07/20/17 SUBJECTIVE: The patient was admitted from the office for the acute stroke. The patient is on the Plavix and despite Plavix and carotid being normal the patient had a stroke. We are evaluating her for the PF4 Hypercoagulable state. Still had some slurry speech as per the nurse today morning, Nurse Smitha Stone. REVIEW OF SYSTEMS: CONSTITUTIONAL: No fever, no chills. HEENT: Normal. ENDOCRINE: No weight gain, no weight loss. CVS: No angina symptoms. No CHF symptoms. No palpitations. No atypical chest pain for CAD. No shortness of breath. No PND, no orthopnea. RESPIRATORY: No cough, no hemoptysis. GI: No nausea, no vomiting. No abdominal pain. : No hematuria. No polyuria. MUSCULOSKELETAL: No joint swelling. PSYCHIATRIC: Not anxious. No depression. No suicidal thoughts. No homicidal thoughts. SKIN: Intact. No rash. PHYSICAL EXAMINATION: V/S: Blood pressure 179/86, respiratory rate 24, heart rate 60, temperature 97.8 with saturation 97. HEENT: Normocephalic, atraumatic. Mucosa dry. Pallor positive. No icterus. NECK: Supple. No JVD, no carotid bruit. No lymphadenopathy. LUNGS: Clear to auscultation. No rales or rhonchi. HEART: S1, S2 normal. No S3. No murmur, gallop or regurgitation. ABDOMEN: Soft, nontender. Bowel sounds active. No rigidity. No rebound or guarding. No CVA tenderness. EXTREMITIES: No cyanosis, clubbing or pedal edema. MUSCULOSKELETAL: No joint swelling. NEUROLOGIC: Awake, alert, oriented times three. No focal deficit. LYMPHATIC: No lymph nodes palpable. SKIN: Intact. LABS: WBC 5.07, hgb 11.6, hct 37.4, plt count 296, sodium 140, potassium 4.3, chloride 104, bicarb 28, BUN 8, creatinine 0.72 and glucose 125. ASSESSMENT: 1. Acute pontine stroke 2. Slurry speech 3. Hypertension 4. Dyslipidemia 5. Osteoarthritis 6. DJD spine 7. COPD PLAN: 1. Stop the Plavix 2. Will start the Lovenox SUBCUT 40mg daily 3. Physical therapy evaluation 4. Fall precautions Will follow the patient in daily rounds. TIME SPENT: More than 35 minutes MTDD
--- NOTE | 2017-07-23 14:25 | PN ---
DATE OF SERVICE: 07/21/17 SUBJECTIVE: The patient was admitted with new onset stroke. Still having some slurry speech and ataxia. The patient's daughter is in the room. Did notice some slurry speech today morning. REVIEW OF SYSTEMS: CONSTITUTIONAL: No fever, no chills. HEENT: Normal. ENDOCRINE: No weight gain, no weight loss. CVS: No angina symptoms. No CHF symptoms. No palpitations. No atypical chest pain for CAD. No shortness of breath. No PND, no orthopnea. RESPIRATORY: No cough, no hemoptysis. GI: No nausea, no vomiting. No abdominal pain. : No hematuria. No polyuria. MUSCULOSKELETAL: No joint swelling. PSYCHIATRIC: Not anxious. No depression. No suicidal thoughts. No homicidal thoughts. SKIN: Intact. No rash. PHYSICAL EXAMINATION: V/S: Blood pressure 153/83, respiratory rate 18, heart rate 77, temperature 97.8 and saturation 98%. HEENT: Normocephalic, atraumatic. Mucosa dry. NECK: Supple. No JVD, no carotid bruit. No lymphadenopathy. LUNGS: Decreased and basilar crackles. Clear to auscultation. No rales or rhonchi. HEART: S1, S2 normal. No S3. No murmur, gallop or regurgitation. ABDOMEN: Soft, nontender. Bowel sounds active. No rigidity. No rebound or guarding. No CVA tenderness. EXTREMITIES: No cyanosis, clubbing or pedal edema. MUSCULOSKELETAL: No joint swelling. NEUROLOGIC: Awake, alert, oriented times three. No focal deficit. LYMPHATIC: No lymph nodes palpable. SKIN: Intact. LABS: WBC 6.31, hgb 11.3, hct 37.4, plt count 278, sodium 141, potassium 4.0, chloride 105, bicarb 27, BUN 4, creatinine 0.66 and glucose 102. ASSESSMENT: 1. New onset stroke in the janice despite anticoagulation with Plavix and normal carotids 2. Ataxia and dizziness 3. COPD 4. Parkinson's disease 5. Hypertension 6. Dyslipidemia 7. Osteoarthritis 8. Osteoporosis 9. Lumbar spine L1 fracture PLAN: 1. Continue the Lovenox 2. Risk of bleeding been discussed with the patient and the family, Farrukh Garcia 3. Out of bed to chair activity as tolerated with the help 4. Continue Prednisone Will follow the patient in daily rounds. TIME SPENT: More than 35 minutes MTDD
[2017-07-23] MEDS: NORVASC PO SCH (15:06)
[2017-07-23] MEDS ORDERED: LIBRIUM ONE (16:43)
[2017-07-23] MEDS: LIBRIUM PO SCH ×2 (16:45→22:49)
[2017-07-23] MEDS: MELATONIN PO SCH (20:38)
[2017-07-23] MEDS: PYRIDOXINE HCL PO SCH (20:38)
[2017-07-23] MEDS: REQUIP PO SCH (20:39)
[2017-07-23] MEDS: SINGULAIR PO SCH (20:40)
[2017-07-24] MEDS: DUONEB NEB SCH ×2 (00:12→05:26)
[2017-07-24] MEDS: CARAFATE PO SCH (05:43)
[2017-07-24] MEDS: PROTONIX PO SCH (05:43)
[2017-07-24] MEDS: FERROUS SULFATE PO SCH (08:57)
[2017-07-24] MEDS: SYMBICORT 80-4.5 MCG INHALER IH SCH (08:57)
[2017-07-24] MEDS: SPIRIVA IH SCH (08:57)
[2017-07-24] MEDS: PREDNISONE PO SCH (08:58)
[2017-07-24] MEDS: BACTRIM DS 800/160 MG PO SCH (08:58)
[2017-07-24] MEDS: LIBRIUM PO SCH (08:58)
[2017-07-24] MEDS: AGGRENOX CAPSULE PO SCH (08:58)
[2017-07-24] MEDS: NORVASC PO SCH (08:58)
[2017-07-24] MEDS: SINEMET 25-100 PO SCH (08:58)
[2017-07-24] MEDS: COZAAR PO SCH (08:58)
[2017-07-24] MEDS: COREG PO SCH (08:59)
[2017-07-24] MEDS: NEURONTIN PO SCH (08:59)
[2017-07-24] MEDS: NORCO 7.5-325 PO SCH (08:59)
[2017-07-24 10:23] VITALS: BP 152/87; TEMP 97.9
--- NOTE | 2017-07-24 11:07 | PN ---
DATE OF SERVICE: 07/22/17 SUBJECTIVE: The patient did not have any more slurry speech or any weakness episodes. The patient been given the Lovenox SUBCUT daily. The patient's daughter in the room and has a lot of questions been answered. Hgb and hct has been stable. REVIEW OF SYSTEMS: CONSTITUTIONAL: No fever, no chills. HEENT: Normal. ENDOCRINE: No weight gain, no weight loss. CVS: No angina symptoms. No CHF symptoms. No palpitations. No atypical chest pain for CAD. No shortness of breath. No PND, no orthopnea. RESPIRATORY: No cough, no hemoptysis. GI: No nausea, no vomiting. No abdominal pain. : No hematuria. No polyuria. MUSCULOSKELETAL: No joint swelling. PSYCHIATRIC: Not anxious. No depression. No suicidal thoughts. No homicidal thoughts. SKIN: Intact. No rash. PHYSICAL EXAMINATION: V/S: Blood pressure 183/91, respiratory rate 18, heart rate 91, temperature 98.6. HEENT: Normocephalic, atraumatic. Mucosa dry. NECK: Supple. No JVD, no carotid bruit. No lymphadenopathy. LUNGS: Clear to auscultation. No rales or rhonchi. HEART: S1, S2 normal. No S3. No murmur, gallop or regurgitation. ABDOMEN: Soft, nontender. Bowel sounds active. No rigidity. No rebound or guarding. No CVA tenderness. EXTREMITIES: No cyanosis, clubbing or pedal edema. MUSCULOSKELETAL: No joint swelling. NEUROLOGIC: Awake, alert, oriented times three. No focal deficit. LYMPHATIC: No lymph nodes palpable. SKIN: Intact. LABS: WBC 6.31, hgb 11.3, hct 37.1, plt count 278, sodium 141, potassium 4.0, chloride 105, bicarb 27, BUN 4, creatinine 0.66 and glucose 101. ASSESSMENT: 1. Acute janice stroke despite being on the Plavix, should be evaluated for the PF4 will be doing that and SUBCUT anticoagulation with Lovenox 2. History of Parkinson's disease 3. Osteoporosis 4. Osteoarthritis 5. COPD oxygen dependant 6. DJD spine, L1 fracture PLAN: 1. Increase the Losartan to 50mg twice a day 2. Stop the IV fluids 3. Continue the Lovenox 4. Out of bed to chair activity as tolerated. TIME SPENT: More than 35 minutes MTDD
--- NOTE | 2017-07-24 14:57 | PN ---
DATE OF SERVICE: 07/23/17 SUBJECTIVE: The patient's daughter is in the room says that she had the slurry speech today morning. The patient is getting Lovenox for the DVT prophylaxis and for stroke. We are going to put the physical therapy started. When we are present with the patient, the patient is talking good no lateralizing signs. REVIEW OF SYSTEMS: CONSTITUTIONAL: No fever, no chills. HEENT: Normal. ENDOCRINE: No weight gain, no weight loss. CVS: No angina symptoms. No CHF symptoms. No palpitations. No atypical chest pain for CAD. No shortness of breath. No PND, no orthopnea. RESPIRATORY: No cough, no hemoptysis. GI: No nausea, no vomiting. No abdominal pain. : No hematuria. No polyuria. MUSCULOSKELETAL: No joint swelling. PSYCHIATRIC: Not anxious. No depression. No suicidal thoughts. No homicidal thoughts. SKIN: Intact. No rash. PHYSICAL EXAMINATION: V/S: Blood pressure 166/88, respiratory rate 20, heart rate 69, temperature 98.5 with saturation 96%. HEENT: Normocephalic, atraumatic. Mucosa dry. Pallor positive. No icterus. NECK: Supple. No JVD, no carotid bruit. No lymphadenopathy. LUNGS: Decreased and basilar crackles. Clear to auscultation. No rales or rhonchi. HEART: S1, S2 normal. No S3. No murmur, gallop or regurgitation. ABDOMEN: Soft, nontender. Bowel sounds active. No rigidity. No rebound or guarding. No CVA tenderness. EXTREMITIES: No cyanosis, clubbing or pedal edema. MUSCULOSKELETAL: No joint swelling. No motor deficit. NEUROLOGIC: Awake, alert, oriented times three. No focal deficit. No slurry speech at this time. LYMPHATIC: No lymph nodes palpable. SKIN: Intact. LABS: WBC 7.73, hgb 11.6, hct 36.4, plt count 261, sodium 138, potassium 3.5, Chloride 95, bicarb 32, BUN 5, creatinine 0.77 ASSESSMENT: 1. Acute pontine stroke 2. Osteoarthritis 3. DJD spine 4. COPD 5. Parkinson's disease 6. Osteoporosis 7. Hypertension uncontrolled. PLAN: 1. Stop the Lovenox 2. Start the Aggrenox 3. Out of bed to chair 4. Physical therapy evaluation 5. Continue breathing treatments. 6. Daily I&O's TIME SPENT: More than 35 minutes MTDD
--- NOTE | 2017-08-01 09:12 | HOLTER ---
PATIENT INFORMATION AND COMMENTS Attending Physician: DR. JEAN CARLOS WOODS Indications: ARRHYTHMIA/ WEAKNESS __ Patient Medications: SYMBICORT, SINEMET, LOVENOX, FERROUS SULFATE, NEURONTIN, COZAAR, SINGULAIR, PROTONIX, PREDNISONE, REQUIP, CARAFATE, SPIRIVA, BACTRIM __ Pre-procedure Summary: Protocol: Standard Heart Rate Started: 07/20/17926 Minimum: 50 BPM Weight: 122 LBS Ended: 07/21/17926 Maximum: 100 BPM Height: 61" Duration: 24 HOURS Average: 64 BPM _ INTERPRETATIONS/OBSERVATIONS: 1. BASIC RHYTHM: SINUS, RATE 50 BPM TO 100 BPM, AVERAGE 64 BPM 2. FREQUENT PAC'S AND RARE PVC'S 3. NO ST-T WAVE CHANGES FROM BASELINE 4. NO ACTIVITY LOG AVAILABLE MTDD
--- NOTE | 2017-08-15 08:49 | DS ---
DATE OF SERVICE: 07/24/17 FINAL DIAGNOSIS: 1. ACUTE PONTINE STROKE DESPITE ON ANTICOAGULATION 2. HISTORY OF COPD, OXYGEN DEPENDENT 3. HYPERTENSION 4. DYSLIPIDEMIA 5. OSTEOARTHRITIS 6. DJD SPINE 7. PARKINSON'S DISEASE 8. BILATERAL CATARACT 9. COPD, STAGE 3, OXYGEN DEPENDENT 10. HIATAL HERNIA 11. OSTEOPOROSIS 12. FRACTURE L1 VERTEBRA 13. SLURRED SPEECH, RESOLVED 14. TOTAL HYSTERECTOMY 15. BILATERAL CATARACT REMOVAL 16. CHOLECYSTECTOMY 17. APPENDECTOMY DISCHARGE INSTRUCTIONS: 1. Discharge the patient home. 2. [facility] 3. [facility] for oxygen and rollator walker 4. Followup appointment with Dr. Dunbar on 07/31/17 MEDICATIONS AT DISCHARGE: Albuterol Carbidopa/Levodopa Vitamin B12 Prolia Neurontin Singulair Protonix Prednisone Requip Sucralfate Spiriva Symbicort [place] Melatonin Ferrous sulfate Coreg NEW PRESCRIPTIONS: Aggrenox one cap p.o. q.12h Norvasc 10 mg p.o. daily Cozaar/Losartan 50 mg p.o. b.i.d. DIET INSTRUCTIONS: Cardiac and Healthy ACTIVITY: As much as tolerated DISEASE SPECIFIC EDUCATION: Stroke and recurrent stroke discussed. Fall precaution discussed, verbalized understanding. HOSPITAL COURSE: This 71-year-old female came to the office complaining of slurred speech. The patient was recently admitted to the hospital. CT of the head and carotid ultrasound was negative so the patient was discharged home. She came back with slurred speech, not feeling herself, not having flavorings compounder in the hands, continued falling so did MRI as outpatient and showed paracentral pontinue janice stroke. At that time, the patient is admitted to the hospital, started on Lovenox. As the patient was on Plavix and despite being on anticoagulation, she was having stroke so admitted to the hospital, started on Lovenox subcut daily. With the given history of GI bleeding, worried the patient may be a bleeder but the patient did not bleed. Hemoglobin and hematocrit stable. At that time, the patient was started on Lovenox. Gradually, the patient was feeling better, up and about, did not have any slurred speech, feeling better. At that time, the patient was discharged home. TIME SPENT: MORE THAN 65 MINUTES MTDD
== END 2017-07-24 11:50 | disposition home or self-care (01) | DRG 66 ==
LOC: MEDSURG B 15:48
PROVIDERS: ADMIT Emergency Medicine; ATTEND Emergency Medicine
DX: I61.3 Nontraumatic intracerebral hemorrhage in brain stem (principal); R47.81 Slurred speech; R27.0 Ataxia, unspecified; R42 Dizziness and giddiness; J44.9 Chronic obstructive pulmonary disease, unspecified; I10 Essential (primary) hypertension; G20 Parkinson's disease; E78.5 Hyperlipidemia, unspecified; M19.90 Unspecified osteoarthritis, unspecified site; M47.9 Spondylosis, unspecified; Z99.81 Dependence on supplemental oxygen; Z79.02 Long term (current) use of antithrombotics/antiplatelets; Z79.899 Other long term (current) drug therapy
CPT/HCPCS: 36415; 80053; 81001; 85008; 85025; 87081; 87086; 93005; 93010; 93227; 94640

== ENCOUNTER 2017-11-12 15:48 | Inpatient (IN) ==
--- NOTE | 2017-11-12 17:13 | CT ---
EXAM: CT chest without contra HISTORY: Cough COMPARISON: 02/12/2017 TECHNIQUE: CT chest performed without intravenous contrast. Coronal and sagittal reformatted images obtained FINDINGS: Thyroid and thoracic inlet appear normal. Heart normal in size. No pericardial effusion. Coronary calcifications. Ectasia ascending aorta measuring 3.7 cm, unchanged Moderate atheroscleros is. Evaluation for lymphadenopathy limited without contrast. No lymphadenopathy identified. Small paratracheal air cyst. Moderate hiatal hernia. Visualized portion upper abdomen demonstrates no acu te abnormality. Patient status post cholecystectomy. Fatty atrophy of the pancreas. No acute abnor malities of the bones. Several old left rib fractures. Kyphoplasty at L1. Degenerative change in t he spine. No acute abnormalities of the bones. Central airway patent. Bilateral lower airway thick ening. Mild left basilar subsegmental atelectasis and/or scarring. Mild to moderate emphysema. No a irspace consolidation. No pleural effusion. No pneumothorax. IMPRESSION: 1. Bilateral lower airway thickening, suggesting small airways infection/inflammation. 2. Mild left basilar subsegmental atelectasis and/or scarring. 3. Emphysema 4. Coronary calcifications. Atherosclerosis. 5. Moderate hiatal hernia. 6. Ectasia ascending aorta measuring 3.7 cm, unchanged.
[2017-11-12] MEDS ORDERED: SOLU-MEDROL 125 MG IVP STA (17:43)
--- NOTE | 2017-11-12 17:48 | ED.PDOC ---
General ED Provider: Dr. LUCAS PAULA Chief Complaint: Altered Mental Status Stated Complaint: SHORT OF AIR Time Seen by Physician: 15:50 ( ) Mode of Arrival: Wheelchair Information Source: Patient, Other Exam Limitations: No limitations Primary Care Provider: ANTIONE PAGE Nursing and Triage Documentation Reviewed and Agree: Yes Does patient meet sepsis criteria?: No System Inflammatory Response Syndrome: Not Applicable Sepsis Protocol: For patient's 13 years and over: Temp is 96.8 and below OR 101 and greater Pulse >90 BPM Resp >20/minute Acutely Altered Mental Status Are patient's symptoms suggestive of a new infection, such as: -Pneumonia -Skin, Soft Tissue -Endocarditis -UTI -Bone, Joint Infection -Implantable Device -Acute Abdominal Infection -Wound Infection -Meningitis -Blood Stream Catheter Infection -Unknown Respiratory Complaint Exam - Shortness of Air Complaint/Exam Onset/Duration: CHRONIC WORSE PAST 2 DAYS Symptoms Are: Still present Timing: Intermittent Initial Severity: Mild Current Severity: Mild Character: Reports: Dyspnea at rest, Dyspnea on exertion, Orthopnea Aggravating: Reports: Recumbent position Alleviating: Reports: Bronchodilators, Upright position, Spontaneous resolution Associated Signs and Symptoms: Reports: Cough, Wheezing. Denies: Chest pain with cough, Chest pain, Fever, Chills, Diaphoresis, Nasal congestion, Dizziness , Calf pain, Calf swelling, Edema, Rapid breathing, Labored breathing, Decreased intake Related History: Reports: Similar episode Pulmonary Embolism Risk Factors: Reports: Bedrest Cardiac Risk Factors: Reports: None, CAD, Family History Tuberculosis Risk Factors: Reports: Chronic Resp. Faliure Home Oxygen Use: Yes (3L) Home Peak Flow: Most recent (NONE TAKEN AT HOME) Recent Stress Test: No Recent Echo/LV Function: No Respiratory Distress: Mild Stridor Present: No Tracheal Deviation: No Subcutaneous Emphysema: No Accessory Muscle Use: No Retractions: Not Present Diminished Breath Sounds: No Prolonged Expiratory Phase: No Unable to Speak Full Sentences: No Fatigue: No Leg Swelling: No Domenica's Sign Present: No Grunting Respirations: No Kussmaul Respirations: No Differential Diagnoses: CHF, Pulmonary Edema, COPD Exacerbation, Pneumonia, Bronchitis Quality Indicators for AMI: EKG in 10min. Quality Indicators for Cardiac Chest Pain: EKG in 10min. Quality Indicator For Non-Traumatic Chest Pain/Syncope: EKG Performed Review of Systems - Review Of Systems Constitutional: Reports: Malaise, Weakness Eyes: Reports: No symptoms Ears, Nose, Mouth, Throat: Reports: No symptoms Respiratory: Reports: Cough, Short of air, Wheezing Cardiac: Reports: No symptoms GI: Reports: No symptoms : Reports: No symptoms Musculoskeletal: Reports: No symptoms Skin: Reports: No symptoms Neurological: Reports: No symptoms Endocrine: Reports: No symptoms Hematologic/Lymphatic: Reports: No symptoms All Other Systems: Reviewed and Negative Past Medical History - Past Medical History Previously Healthy: No Endocrine: Reports: None Cardiovascular: Reports: None Respiratory: Reports: COPD Hematological: Reports: Anemia Gastrointestinal: Reports: None Genitourinary: Reports: None Neuro/Psych: Reports: None Musculoskeletal: Reports: Arthritis, Joint Pain, Other (osteoporsis ). Denies: None Cancer: Reports: None Last Menstrual Period: NONE - Surgical History General Surgical History: Reports: Hysterectomy - Family History Family History: Reports: Unknown - Social History Smoking Status: Current some day smoker, Light tobacco smoker Hx Substance Use: No Alcohol Screening: None Physical Exam - Physical Exam Appearance: Well-appearing, No pain distress, Well-nourished Eyes: BRADLEY, EOMI, Conjunctiva clear ENT: Ears normal, Nose normal, Oropharynx normal Respiratory: Breath sounds diminished, Rhonchi Cardiovascular: RRR, Pulses normal, No rub, No murmur GI/: Soft, Nontender, No masses, Bowel sounds normal, No Organomegaly Musculoskeletal: Normal strength, ROM intact, No edema, No calf tenderness Skin: Warm, Dry, Normal color Neurological: Sensation intact, Motor intact, Reflexes intact, Cranial nerves intact, Alert, Oriented Psychiatric: Affect appropriate, Mood appropriate Interpretation - Radiology Interpretation Radiology Interpretation By: Radiologist Radiology Results: Positive (COPD) Re-Evaluation - Re-Evaluation Time of Re-Evaluation: 16:00 Status: Improved Vital Signs Stable: Yes Pain Level: 0 Appearance: NAD Lungs: Clear Skin: Warm and Dry Neuro: Alert and Oriented X3 CV: RRR Additional Comments: DISCUSSED DNR PT AND FAMILY CONFIRM THE DNR ORDER - Re-Evaluation Time of Re-Evaluation: 17:49 (DNR CONFIRMED WITH AURA IN THE ROOM DOCTOR DILSHAD NOTIFED ) Status: Improved Vital Signs Stable: Yes Pain Level: 0 Appearance: NAD Skin: Warm and Dry Neuro: Alert and Oriented X3 CV: RRR Physician Notification - Case Discussed Physician Notified: DILSHAD BARDALES Time of Notification: 17:50 Admit To: Inpatient Critical Care Note - Critical Care Note Total Time (mins): 0 Course - Course Hematology/Chemistry: 11/12/17 16:10 11/12/17 16:10 Orders, Labs, Meds: Lab Review 11/12/17 11/12/17 11/12/17 16:10 16:10 16:20 WBC 8.86 RBC 4.28 Hgb 14.0 Hct 44.1 MCV 103.0 H MCH 32.7 H MCHC 31.7 L RDW Coeff of Lynette 15.1 H Plt Count 273 Immature Gran % (Auto) 0.2 Neut % (Auto) 70.5 Lymph % (Auto) 19.5 Young % (Auto) 8.5 Eos % (Auto) 0.7 Baso % (Auto) 0.6 Immature Gran # (Auto) 0.0 Neut # (Auto) 6.3 Lymph # (Auto) 1.7 Young # (Auto) 0.8 Eos # (Auto) 0.1 Baso # (Auto) 0.1 Puncture Site Lbrach O2 Saturation 75.0 L ABG pH 7.345 L ABG pCO2 68.1 H ABG pO2 44.0 L* ABG HCO3 37.2 H ABG Total CO2 39 H ABG Base Excess 11 H FiO2 % 21.0 Sodium 138 Potassium 3.4 L Chloride 95 L Carbon Dioxide 39.8 H Anion Gap 6.6 BUN 6 L Creatinine 0.64 Estimated GFR (MDRD) 91.00 BUN/Creatinine Ratio 9.37 Glucose 168 H Calcium 8.7 Total Bilirubin 0.2 AST 25 ALT 13 Alkaline Phosphatase 81 Total Creatine Kinase 74 Troponin I < 0.012 Total Protein 6.8 Albumin 3.7 Globulin 3.1 Albumin/Globulin Ratio 1.19 Orders Category Date Time Status ABG DRAW REQUEST Stat CARDIO 11/12/17 16:20 Completed ABG DRAW REQUEST Stat CARDIO 11/12/17 17:09 Ordered EKG-(ED ONLY) Stat CARDIO 11/12/17 16:19 Completed ABG Stat LAB 11/12/17 16:20 Completed ABG Stat LAB 11/12/17 17:09 Ordered CBC W/ AUTO DIFF Stat LAB 11/12/17 16:10 Completed COMPREHENSIVE METABOLIC PANEL Stat LAB 11/12/17 16:10 Completed CREATINE KINASE Stat LAB 11/12/17 16:10 Completed TROPONIN I Stat LAB 11/12/17 16:[address] CHEST W/O CONTRAST Stat RADS 11/12/17 16:20 Completed Medications Generic Name Dose Route Start Last Admin Trade Name Freq PRN Reason Stop Dose Admin Albuterol/Ipratropium 1 vial 11/12/17 18:00 Duoneb NEB [id number] ARTHUR Ceftriaxone Sodium 1 gm/ 50 mls @ 75 mls/hr 11/12/17 18:00 Sodium Chloride IV DAILY ARTHUR Potassium Chloride/Dextrose/Sod Cl 1,000 mls @ 75 mls/hr 11/12/17 18:00 D5%-Ns-Kcl 20 Meq/L Iv May IV .[id number] ARTHUR Sodium Chloride 1,000 mls @ 75 mls/hr 11/12/17 18:00 Sodium Chloride IV .[id number] ARTHUR Methylprednisolone Sodium Succinate 60 mg 11/12/17 21:00 Solu-Medrol 40 Mg IVP Q12HR ARTHUR Discontinued Medications Generic Name Dose Route Start Last Admin Trade Name Freq PRN Reason Stop Dose Admin Methylprednisolone Sodium Succinate 125 mg 11/12/17 17:43 Solu-Medrol 125 Mg IVP 11/12/17 17:44 ONCE STA Vital Signs: Temp Pulse Resp BP Pulse Ox 11/12/17 15:50 98.6 F 64 26 H 105/59 L 92 L Departure - Departure Time of Disposition: 17:50 Disposition: ADMITTED INPATIENT Discharge Problem: COPD exacerbation Condition: Fair Pt referred to PMD for follow-up: Yes (DILSHAD MAYORGA) IPMP verified?: No Allergies/Adverse Reactions: Allergies tizanidine HCl [From Zanaflex] Allergy (Severe, Verified 11/12/17 15:53) hallucinates Patient will notify drugstore. PM already has been notified aspirin Adverse Reaction (Verified 11/12/17 15:53) Abdominal Pain Penicillins Adverse Reaction (Verified 11/12/17 15:53) Rash Home Medications: Ambulatory Orders Budesonide/Formoterol Fumarate [Symbicort 80-4.5 Mcg Inhaler] 2 puff IH BID 01/18 Hydrocodone/Acetaminophen [[place] 7.5-325 Tablet] 1 each PO TID 10/30/16 Melatonin/Pyridoxine HCl (B6) [Melatonin 10 mg Tablet] 10 mg PO BEDTIME Disposition Discussed With: Patient, Family
[2017-11-12] MEDS ORDERED: SODIUM CHLORIDE 1,000 ML IV SCH (18:00)
[2017-11-12 18:14] VITALS: BMI 20.4
[2017-11-12] MEDS ORDERED: ROCEPHIN ONE (18:32)
[2017-11-12] MEDS: DUONEB NEB SCH (18:37)
[2017-11-12] MEDS: D5%-NS-KCL 20 MEQ/L IV SOL 1,000 ML IV SCH (18:48)
[2017-11-12] MEDS: ROCEPHIN 1 GM in SODIUM CHLORIDE 50 ML IV SCH (18:53)
[2017-11-12] MEDS ORDERED: PROTONIX PO SCH (21:00)
[2017-11-12] MEDS ORDERED: CARAFATE PO SCH (21:00)
[2017-11-12] MEDS ORDERED: GABAPENTIN PO SCH (21:00)
[2017-11-12] MEDS ORDERED: SOLU-MEDROL 40 MG IVP SCH (21:00)
[2017-11-12] MEDS ORDERED: NON-FORMULARY MEDICATION (Ferrous Sulfate [Iron] 325 MG) PO SCH (21:00)
[2017-11-12] MEDS ORDERED: CARAFATE ONE (21:01)
[2017-11-12] MEDS ORDERED: FERROUS SULFATE ONE (21:01)
[2017-11-12] MEDS ORDERED: SOLU-MEDROL 40 MG ONE ×2 (21:02→21:05)
[2017-11-12] MEDS: AGGRENOX CAPSULE PO SCH (21:56)
[2017-11-12] MEDS: SYMBICORT 80-4.5 MCG INHALER IH SCH (21:58)
[2017-11-12] MEDS ORDERED: ROBITUSSIN DM SYRUP ONE (22:23)
[2017-11-13] MEDS: DUONEB NEB SCH ×5 (00:05→23:20)
[2017-11-13] MEDS: SOLU-MEDROL 40 MG IVP SCH ×2 (00:14→05:41)
[2017-11-13] MEDS: AGGRENOX CAPSULE PO SCH ×3 (05:42→20:42)
[2017-11-13] MEDS: NORCO 7.5-325 PO SCH ×4 (07:50→20:40)
[2017-11-13] MEDS: PROAIR HFA IH SCH ×5 (07:50→20:38)
[2017-11-13] MEDS: D5%-NS-KCL 20 MEQ/L IV SOL 1,000 ML IV SCH ×2 (08:59→22:41)
[2017-11-13] MEDS ORDERED: NON-FORMULARY MEDICATION (Amlodipine Besylate [Amlodipine Besylate] 10 MG) PO SCH (09:00)
[2017-11-13] MEDS: SYMBICORT 80-4.5 MCG INHALER IH SCH ×2 (09:00→20:39)
[2017-11-13] MEDS: SPIRIVA IH SCH (09:01)
[2017-11-13] MEDS: ROBITUSSIN DM SYRUP PO SCH ×2 (09:01→20:39)
[2017-11-13] MEDS: REQUIP PO SCH (09:02)
[2017-11-13] MEDS: PROTONIX PO SCH ×2 (09:02→16:47)
[2017-11-13] MEDS: ROCEPHIN 1 GM in SODIUM CHLORIDE 50 ML IV SCH (09:02)
[2017-11-13] MEDS: NORVASC PO SCH (09:02)
[2017-11-13] MEDS: NEURONTIN PO SCH ×2 (09:03→20:40)
[2017-11-13] MEDS: SINGULAIR PO SCH (09:03)
[2017-11-13] MEDS: CARAFATE PO SCH ×4 (09:03→20:41)
[2017-11-13] MEDS: FERROUS SULFATE PO SCH ×2 (09:04→20:41)
[2017-11-13] MEDS: COZAAR PO SCH (09:04)
[2017-11-13] MEDS: COREG PO SCH ×2 (09:04→16:47)
[2017-11-13] MEDS: SOLU-MEDROL 125 MG IVP SCH ×3 (12:01→23:01)
[2017-11-14] MEDS: DUONEB NEB SCH ×4 (05:25→22:35)
[2017-11-14] MEDS: CARAFATE PO SCH ×4 (05:33→21:28)
[2017-11-14] MEDS: SOLU-MEDROL 125 MG IVP SCH ×3 (05:33→17:07)
[2017-11-14] MEDS: PROTONIX PO SCH ×2 (05:33→17:07)
[2017-11-14] MEDS: PROAIR HFA IH SCH ×4 (08:15→21:27)
[2017-11-14] MEDS: SYMBICORT 80-4.5 MCG INHALER IH SCH ×2 (08:15→21:27)
[2017-11-14] MEDS: ROCEPHIN 1 GM in SODIUM CHLORIDE 50 ML IV SCH (08:16)
[2017-11-14] MEDS: COREG PO SCH ×2 (08:17→17:07)
[2017-11-14] MEDS: COZAAR PO SCH (08:17)
[2017-11-14] MEDS: SINGULAIR PO SCH (08:17)
[2017-11-14] MEDS: REQUIP PO SCH (08:17)
[2017-11-14] MEDS: FERROUS SULFATE PO SCH ×2 (08:17→21:28)
[2017-11-14] MEDS: NEURONTIN PO SCH ×2 (08:17→21:28)
[2017-11-14] MEDS: NORCO 7.5-325 PO SCH ×3 (08:18→21:28)
[2017-11-14] MEDS: ROBITUSSIN DM SYRUP PO SCH ×2 (08:18→21:28)
[2017-11-14] MEDS: NORVASC PO SCH (08:18)
[2017-11-14] MEDS: AGGRENOX CAPSULE PO SCH ×2 (08:18→21:28)
[2017-11-14] MEDS: SPIRIVA IH SCH (08:21)
--- NOTE | 2017-11-14 14:05 | PN ---
DATE OF SERVICE: 11/12/17 SUBJECTIVE: 72 year old white female is hospitalized with worsening of COPD. The patient's arterial blood gases showed mild compensated respiratory acidosis with arterial blood gases of PCO2 of 65-66 with PO2 of 44, 3L of oxygen, saturation went up to almost 100%. Will do blood gases on 3L. The patient was seen and examined in 121 and she was alert and responded to her name. She does not want to be intubated and not put on respirator. PHYSICAL EXAMINATION: HEENT: Head normocephalic, atraumatic. Eyes: Extraocular muscles are intact. Pupils are equal, round and reactive to light and accommodation. Ears: No lesions. Nose appeared normal. Throat: No exudate or erythema. NECK: Supple. No JVD, no carotid bruit. No lymphadenopathy or thyromegaly. LUNGS: Decreased, breath sounds with prolonged expiration. HEART: S1, S2, no S3. No murmurs. No cyanosis or clubbing. No ascites. Pulses: Dorsalis pedis and posterior tibial pulses +1 to +2 both sides. ABDOMEN: Soft. Nontender. Bowel sounds active. No CVA tenderness. No mass felt. EXTREMITIES: No edema. Full range of motion of all extremities, equal. NEUROLOGIC: No focal deficit. Cranial nerves II through XII are grossly intact. No headache, no double vision or headache. SKIN: Not dry. Intact. Turgor - normal. LYMPHATIC: No palpable lymph nodes/no lymphedema. MUSCULOSKELETAL: Normal joints with no swelling. Muscle tone is normal. LABS: Hemoglobin 14, hematocrit 44, WBC 8,800, normal differential. Creatinine 0.6, BUN 6, potassium 3.4. ASSESSMENT: 1. RESPIRATORY FAILURE 2. EXACERBATION OF COPD PLAN: 1. Give steroids, nebs treatment, antibiotics, and oxygen supplements. 2. Nutritional status advised to improve. TIME SPENT: More than 30 minutes. Plan and coordination of the patient's care discussed in the presence of nurse. FABRICE
--- NOTE | 2017-11-14 14:36 | PN ---
DATE OF SERVICE: 11/13/17 SUBJECTIVE: The patient is a 72 year old white female hospitalized with chronic lung disease in respiratory failure. The patient's ABG on 2L showed PO2 of 99, PCO2 of 71 with PH of 7.34, 97% saturation. She is in chronic respiratory acidosis with chronic respiratory failure compensated. PHYSICAL EXAMINATION: GENERAL: The patient is sitting up feeling good, her daughter is in the room. She is talking without much interruption but doesn't have to stop. HEENT: Head normocephalic, atraumatic. Eyes: Extraocular muscles are intact. Pupils are equal, round and reactive to light and accommodation. Ears: No lesions. Nose appeared normal. Throat: No exudate or erythema. NECK: Supple. No JVD, no carotid bruit. No lymphadenopathy or thyromegaly. LUNGS: Decreased breath sounds but clear. HEART: S1, S2. No murmurs. No cyanosis or clubbing. No ascites. Pulses: Dorsalis pedis and posterior tibial pulses +1 to +2 both sides. ABDOMEN: Bowel sounds active. EXTREMITIES: No edema. Full range of motion of all extremities, equal. NEUROLOGIC: No focal deficit. Cranial nerves II through XII are grossly intact. No headache, no double vision or headache. SKIN: Not dry. Intact. Turgor - normal. LYMPHATIC: No palpable lymph nodes/no lymphedema. MUSCULOSKELETAL: Normal joints with no swelling. Muscle tone is normal. ASSESSMENT: 1. RESPIRATORY FAILURE WITH ACUTE BRONCHITIS BEING TREATED WITH NEBS TREATMENTS , STEROIDS, ANTIBIOTICS. 2. CONDITION HAS IMPROVED, MENTAL STATUS HAS IMPROVED. 3. HYPERTENSION 4. DYSLIPIDEMIA 5. OSTEOARTHRITIS 6. DEGENERATIVE SPINE 7. HISTORY OF ISCHEMIC STROKE CONDITION: Stable TIME SPENT: More than 30 minutes. Plan and coordination of the patient's care discussed in the presence of nurse. FABRICE
[2017-11-15] MEDS: SOLU-MEDROL 125 MG IVP SCH ×3 (00:07→12:27)
[2017-11-15] MEDS: DUONEB NEB SCH ×2 (04:43→11:07)
[2017-11-15] MEDS: CARAFATE PO SCH ×2 (05:37→11:24)
[2017-11-15] MEDS: PROTONIX PO SCH (05:37)
--- NOTE | 2017-11-15 06:55 | PN ---
DATE OF SERVICE: 11/14/17 SUBJECTIVE: The patient was seen and examined with the nurse practitioner. 72-year-old white female was hospitalized with COPD, acute respiratory failure. The patient' s condition has been stabilized. She is feeling better. Appetite has improved. She is not in distress at all. REVIEW OF SYSTEMS: CONSTITUTIONAL: No night sweats. No fatigue, malaise, lethargy. No fever or chills. HEENT: Eyes: No visual changes. No eye pain. No eye discharge. ENT: No runny nose. No epistaxis. No sinus pain. No sore throat. No odynophagia. No congestion. RESPIRATORY: Mild cough, no congestion. No hemoptysis. She is breathing better. CARDIOVASCULAR: No angina symptoms. No CHF symptoms. No atypical chest pain for CAD. No palpitations. No orthopnea. GASTROINTESTINAL: No abdominal pain. No nausea or vomiting. No diarrhea or constipation. No hematemesis. No hematochezia. GENITOURINARY: No urgency. No frequency. No dysuria. No hematuria. No obstructive symptoms. No discharge. No pain. No significant abnormal bleeding. MUSCULOSKELETAL: No musculoskeletal pain; no joint swelling. NEUROLOGICAL: No headache. No neck pain. No syncope. No seizures. No dizziness. PSYCHIATRIC: Not anxious. No depression. No suicidal thoughts. No homicidal thoughts. SKIN: No rash. No lesions. No wounds. ENDOCRINE: No unexplained weight loss. No weight gain. HEMATOLOGIC/LYMPHATIC: No anemia. No purpura. No petechiae. No prolonged or excessive bleeding. No palpable lymph nodes. PHYSICAL EXAMINATION: GENERAL: The patient is oriented to time, place and person. HEENT: Head normocephalic, atraumatic. Eyes: Extraocular muscles are intact. Pupils are equal, round and reactive to light and accommodation. Ears: No lesions. Nose appeared normal. Throat: No exudate or erythema. NECK: Supple. No JVD, no carotid bruit. No lymphadenopathy or thyromegaly. LUNGS: Decreased breath sounds but clear to auscultation. Percussion note normal. Chest symmetrical. HEART: S1, S2, no S3. No murmurs. No cyanosis or clubbing. No ascites. Pulses: Dorsalis pedis and posterior tibial pulses +1 to +2 both sides. ABDOMEN: Soft. Nontender. Bowel sounds active. No CVA tenderness. No mass felt. EXTREMITIES: No edema. Full range of motion of all extremities, equal. NEUROLOGIC: No focal deficit. Cranial nerves II through XII are grossly intact. No headache, no double vision or headache. SKIN: Not dry. Intact. Turgor - normal. LYMPHATIC: No palpable lymph nodes/no lymphedema. MUSCULOSKELETAL: Normal joints with no swelling. Muscle tone is normal. ASSESSMENT: 1. RESPIRATORY FAILURE SEEMS TO BE STABLE. THE PATIENT HAS SEVBERE CHRONIC LUNG DISEASE. 2. FURTHER HISTORY TAKEN FROM THE PATIENT, SHE SAYS SHE IS STILL SMOKING. COUNSELING FOR SMOKING DONE. 3. THE PATIENT SAID SHE HAD A LIGHT STROKE, NEVER HAD A REAL STROKE WHERE SHE WAS HOSPITALIZED. 4. SHE SAYS SHE DOESN'T HAVE ANY PARKINSON'S DISEASE. PLAN: 1. Will continue steroids, nebs treatment. 2. Advised pulmonary rehab. CONDITION STABLE. TIME SPENT: More than 30 minutes. Plan and coordination of the patient's care discussed in the presence of nurse. FABRICE
[2017-11-15] MEDS ORDERED: HYZAAR 50-12.5 MG TAB PO SCH (09:00)
[2017-11-15] MEDS ORDERED: NORVASC PO SCH (09:00)
[2017-11-15] MEDS: ROBITUSSIN DM SYRUP PO SCH (09:22)
[2017-11-15] MEDS: NEURONTIN PO SCH (09:22)
[2017-11-15] MEDS: COREG PO SCH (09:23)
[2017-11-15] MEDS: REQUIP PO SCH (09:23)
[2017-11-15] MEDS: AGGRENOX CAPSULE PO SCH (09:23)
[2017-11-15] MEDS: SPIRIVA IH SCH (09:24)
[2017-11-15] MEDS: FERROUS SULFATE PO SCH (09:24)
[2017-11-15] MEDS: PROAIR HFA IH SCH ×2 (09:24→12:27)
[2017-11-15] MEDS: NORCO 7.5-325 PO SCH (09:24)
[2017-11-15] MEDS: SYMBICORT 80-4.5 MCG INHALER IH SCH (09:25)
[2017-11-15] MEDS: ROCEPHIN 1 GM in SODIUM CHLORIDE 50 ML IV SCH (09:25)
[2017-11-15] MEDS: SINGULAIR PO SCH (09:26)
--- NOTE | 2017-11-15 11:26 | CM.DICTOOL ---
ADMISSION: 11/12/17 17:32 DISCHARGE: 11/15/17 FINAL DIAGNOSIS COPD EXACERBATION HISTORY OF: CHRONIC RESPIRATORY FAILURE COPD STAGE 3 ANEMIA ARTHRITIS S/P HYSTERECTOMY SMOKER BILATERAL CATARACTS RESTLESS LEG SYNDROME HYPERTENSION HIATAL HERNIA S/P CHOLECYSTECTOMY S/P APPENDECTOMY S/P HYSTERECTOMY FX L-1 FROM FALL AT HOME OSTEOPOROSIS DEPRESSION/ANXIETY MINI STROKES LAST VITALS Temp Pulse Resp BP Pulse Ox 98.2 F 79 18 139/79 97 11/15/17 09:35 11/15/17 09:35 11/15/17 09:35 11/15/17 09:35 11/15/17 09:35 TAKE THESE MEDICATIONS AT HOME Hydrocodone Bitart/Acetaminophen ([place] 7.5-325) 1 tab PO TID [facility] Last Admin: 11/15/17 09:24 Dose: 1 tab Albuterol Sulfate (Proair Hfa) 1 puff IH QID [facility] Last Admin: 11/15/17 09:24 Dose: 1 puff Amlodipine Besylate (Norvasc) 5 mg PO DAILY [facility] Last Admin: 11/15/17 09:22 Dose: 5 mg Budesonide/Formoterol Fumarate (Symbicort 80-4.5 Mcg Inhaler) 2 puff IH BID [facility] Last Admin: 11/15/17 09:25 Dose: 2 puff Carvedilol (Coreg) 6.25 mg PO BIDWM [facility] Last Admin: 11/15/17 09:23 Dose: 6.25 mg Dipyridamole/Aspirin (Aggrenox Capsule) 1 cap PO Q12HR [facility] Last Admin: 11/15/17 09:23 Dose: 1 cap Ferrous Sulfate (Ferrous Sulfate) 324 mg PO BID [facility] Last Admin: 11/15/17 09:24 Dose: 324 mg Gabapentin (Neurontin) 600 mg PO BID [facility] Last Admin: 11/15/17 09:22 Dose: 600 mg Guaifenesin/Dextromethorphan (Robitussin Dm Syrup) 10 ml PO BID [facility] Last Admin: 11/15/17 09:22 Dose: 10 ml HYZAAR 50/12.5 1 tab PO DAILY [facility] Last Admin: 11/15/17 09:22 Dose: 1 tab Montelukast Sodium (Singulair) 10 mg PO DAILY [facility] Last Admin: 11/15/17 09:26 Dose: 10 mg Pantoprazole Sodium (Protonix) 40 mg PO BIDAC [facility] Last Admin: 11/15/17 05:37 Dose: 40 mg Ropinirole HCl (Requip) 1 mg PO DAILY [facility] Last Admin: 11/15/17 09:23 Dose: 1 mg Sucralfate (Carafate) 1 gm PO ACHS [facility] Last Admin: 11/15/17 05:37 Dose: 1 gm Tiotropium [place] (Spiriva) 1 cap IH DAILY [facility] Last Admin: 11/15/17 09:24 Dose: 1 cap ALLERGIES tizanidine HCl [From Zanaflex] Allergy (Severe, Verified 11/12/17 15:53) hallucinates aspirin Adverse Reaction (Verified 11/12/17 15:53) Abdominal Pain Penicillins Adverse Reaction (Verified 11/12/17 15:53) Rash Discontinued Medications Amlodipine Besylate (Norvasc) 10 mg PO DAILY [facility] Last Admin: 11/14/17 08:18 Dose: 10 mg Dipyridamole/Aspirin (Aggrenox Capsule) 1 cap PO Q12H [facility] Last Admin: 11/13/17 05:42 Dose: Not Given Potassium Chloride/Dextrose/Sod Cl (D5%-Ns-Kcl 20 Meq/L Iv May) 1,000 mls @ 75 mls/hr IV .[id number] [facility] Last Admin: 11/13/17 22:41 Dose: 75 mls/hr Losartan Potassium (Cozaar) 25 mg PO DAILY [facility] Last Admin: 11/14/17 08:17 Dose: 25 mg Methylprednisolone Sodium Succinate (Solu-Medrol 40 Mg) 60 mg IVP Q12HR [facility] Last Admin: 11/12/17 21:58 Dose: 60 mg Methylprednisolone Sodium Succinate (Solu-Medrol 125 Mg) 125 mg IVP ONCE STA Stop: 11/12/17 17:44 Last Admin: 11/12/17 17:52 Dose: 125 mg Methylprednisolone Sodium Succinate (Solu-Medrol 40 Mg) 60 mg IVP Q6HR [facility] Last Admin: 11/13/17 05:41 Dose: 60 mg Non-Formulary Medication (Ferrous Sulfate [Iron]) 325 mg PO BID [facility] Last Admin: 11/12/17 22:03 Dose: Not Given Non-Formulary Medication (Gabapentin [Gabapentin]) 1 tab PO BID [facility] Last Admin: 11/12/17 22:03 Dose: Not Given Non-Formulary Medication (Guaifenesin/Dextromethorphan [Robitussin Cough-Chest Dm Liq]) 10 ml PO BID [facility] Last Admin: 11/12/17 22:28 Dose: Not Given Pantoprazole Sodium (Protonix) 40 mg PO BID [facility] Last Admin: 11/12/17 21:57 Dose: 40 mg Sucralfate (Carafate) 1 gm PO TID [facility] Last Admin: 11/12/17 21:57 Dose: 1 gm NEW PRESCRIPTIONS: CONTINUE HOME MEDICATIONS PER NURSING SHEETS WITH FOLLOWING CHANGES: 1. STOP LOSARTAN (COZAAR) 2. DECREASE NORVASC TO 5MG (1/2 OF TAB YOU CURRENTLY HAVE) AT BEDTIME. NEW MEDICATIONS: 1. KEFLEX 500MG TAKE 1 CAPSULE 2 TIMES A DAY FOR 5 DAYS. TAKE UNTIL ALL GONE. 2. PREDNISONE 10MG TAKE 1 TABLET 2 TIMES A DAY FOR 5 DAYS. TAKE WITH FOOD. 3. HYZAAR 50/12.5MG TAKE 1 TABLET DAILY SMOKING: STOP SMOKING DISEASE SPECIFIC EDUCATION: COPD MEDICATION MANAGEMENT INCLUDING CHANGES SMOKING CESSATION STEROID THERAPY ABX THERAPY LAB REVIEW: 11/15/17 07:10 11/15/17 07:10 11/15/17 07:10: Sodium 136.9 L, Potassium 4.53, Chloride 98.6, Carbon Dioxide 35.2 H, Anion Gap 7.63, BUN 8.3, Creatinine 0.50 L, Estimated GFR (MDRD) 122.00 , BUN/Creatinine Ratio 16.60, Glucose 126.2 H, Calcium 8.83, Total Bilirubin 0.16 L, AST 35.5, ALT 24.7, Alkaline Phosphatase 66.0, Total Protein 6.32, Albumin 3.39 L, Globulin 2.93, Albumin/Globulin Ratio 1.15 11/15/17 07:10: WBC 19.24 H, RBC 3.86 L, Hgb 12.7, Hct 39.4, MCV 102.1 H, MCH 32.9 H, MCHC 32.2, RDW Coeff of [place] 14.9 H, Plt Count 237, Immature Gran % (Auto ) 1.5, Neut % (Auto) 94.3, Lymph % (Auto) 3.4 L, [place] % (Auto) 0.7, Eos % (Auto ) 0.0, Baso % (Auto) 0.1, Immature Gran # (Auto) 0.3, Neut # (Auto) 18.2 H, Lymph # (Auto) 0.7, [place] # (Auto) 0.1 L, Eos # (Auto) 0.0, Baso # (Auto) 0.0 PLAN: DISCHARGE HOME TODAY. 11/15/17. CONTINUE HOME MEDICATIONS PER NURSING SHEETS WITH FOLLOWING CHANGES: 1. STOP LOSARTAN (COZAAR) 2. DECREASE NORVASC TO 5MG (1/2 OF TAB YOU CURRENTLY HAVE) AT BEDTIME. NEW MEDICATIONS: 1. KEFLEX 500MG TAKE 1 CAPSULE 2 TIMES A DAY FOR 5 DAYS. TAKE UNTIL ALL GONE. 2. PREDNISONE 10MG TAKE 1 TABLET 2 TIMES A DAY FOR 5 DAYS. TAKE WITH FOOD. 3. HYZAAR 50/12.5MG TAKE 1 TABLET DAILY DIET: TOLERATED. ACTIVITY: GRADUALLY RESUME ACTIVITY. YOUR APPOINTMENT WITH THE CLINIC HAS BEEN CANCELLED. FOLLOW UP WITH DR. YUNG Sunday AT 9AM. IF UNABLE TO KEEP THIS APPOINTMENT, PLEASE CALL TO RESCHEDULE. [phone] [facility] HAS BEEN NOTIFIED OF YOUR DISCHARGE AND NEED TO RESUME SERVICES. PATIENT IS A DNR. SITTING UP IN BED. ALERT AND ORIENTED X 4. DR. YUNG INTO SEE PATIENT. PATIENT STATES FEELING MUCH BETTER. PLAN OF CARE DISCUSSED PER DR. YUNG INCLUDING DISCHARGE, MEDICATIONS, FOLLOW UP APPOINTMENT AND SMOKING CESSATION. PATIENT VERBALIZES UNDERSTANDING AND AGREEMENT. APPETITE IS FAIR. VITAL SIGNS ARE STABLE. HAS BEEN AFEBRILE. POX 97% ON 3L/C. HEART TONES ARE REGULAR WITH TELEMETRY REVEALING SINUS ARRHYTHMIA/SINUS RHYTHM. NO C/O PAIN OR DISCOMFORT. LUNGS ARE CLEAR WITH DIMINISHED BREATH SOUNDS. NO COUGH NOTED. DENIES DYSPNEA. ABDOMEN IS SOFT, NON-TENDER WITH BOWEL SOUNDS POSITIVE IN ALL 4 QUADS. PEDAL PULSES POSITIVE WITHOUT EDEMA. HAS SALINE LOCK IN RIGHT AC SITE IS CLEAR. IS A FALL RISK WITH FALL PRECAUTIONS IN USE. IS A STANDBY ASSIST WITH ACTIVITIES OF DAILY LIVING. GOLDIE YUNG MD Antione CRONIN APRN
--- NOTE | 2017-11-15 11:29 | PN ---
DATE OF SERVICE: 11/15/17 SUBJECTIVE: The patient was seen and examined today. The patient's condition has improved and she is up and about with help with much less shortness of breath then before. REVIEW OF SYSTEMS: CONSTITUTIONAL: No night sweats. No fatigue, malaise, lethargy. No fever or chills. HEENT: Eyes: No visual changes. No eye pain. No eye discharge. ENT: No runny nose. No epistaxis. No sinus pain. No sore throat. No odynophagia. No congestion. RESPIRATORY: Mild cough, no congestion. No hemoptysis. No shortness of breath. CARDIOVASCULAR: No angina symptoms. No CHF symptoms. No atypical chest pain for CAD. No palpitations. No orthopnea. GASTROINTESTINAL: No abdominal pain. No nausea or vomiting. No diarrhea or constipation. No hematemesis. No hematochezia. GENITOURINARY: No urgency. No frequency. No dysuria. No hematuria. No obstructive symptoms. No discharge. No pain. No significant abnormal bleeding. MUSCULOSKELETAL: No musculoskeletal pain; no joint swelling. NEUROLOGICAL: No headache. No neck pain. No syncope. No seizures. No dizziness. PSYCHIATRIC: Not anxious. No depression. No suicidal thoughts. No homicidal thoughts. SKIN: No rash. No lesions. No wounds. ENDOCRINE: No unexplained weight loss. No weight gain. HEMATOLOGIC/LYMPHATIC: No anemia. No purpura. No petechiae. No prolonged or excessive bleeding. No palpable lymph nodes. PHYSICAL EXAMINATION: HEENT: Head normocephalic, atraumatic. Eyes: Extraocular muscles are intact. Pupils are equal, round and reactive to light and accommodation. Ears: No lesions. Nose appeared normal. Throat: No exudate or erythema. NECK: Supple. No JVD, no carotid bruit. No lymphadenopathy or thyromegaly. LUNGS: Decreased breath sounds. Clear to auscultation. Percussion note normal. Chest symmetrical. HEART: S1, S2, no S3. No murmurs. No cyanosis or clubbing. No ascites. Pulses: Dorsalis pedis and posterior tibial pulses +1 to +2 both sides. ABDOMEN: Soft. Nontender. Bowel sounds active. No CVA tenderness. No mass felt. EXTREMITIES: No edema. Full range of motion of all extremities, equal. NEUROLOGIC: No focal deficit. Cranial nerves II through XII are grossly intact. No headache, no double vision or headache. SKIN: Not dry. Intact. Turgor - normal. LYMPHATIC: No palpable lymph nodes/no lymphedema. MUSCULOSKELETAL: Normal joints with no swelling. Muscle tone is normal. ASSESSMENT: 1. Acute bronchitis with acute respiratory failure seems to be under control 2. Severe chronic lung disease 3. Hypertension PLAN: 1. The patient had an echocardiogram done which showed LVH with normal LV contractility. 2. The patient is going to be discharged home on Keflex and Prednisone. 3. Medications; Amlodipine has been decreased to 10mg 4. Cozaar 25mg has been discontinued 5. Hyzaar 50-12.5 CONDITION: Stable TIME SPENT: More than 30 minutes. Plan and coordination of the patient's care discussed in the presence of nurse. FABRICE
--- NOTE | 2017-11-15 11:51 | DS ---
DATE OF SERVICE: 11/15/17 FINAL DIAGNOSIS: 1. COPD exacerbation 2. History of chronic respiratory failure 3. COPD stage 3 4. Anemia 5. Arthritis 6. Status post hysterectomy 7. Smoker 8. Bilateral cataracts 9. Restless leg syndrome 10.Hypertension 11.Hiatal hernia 12.Status post cholecystectomy 13.Status post Appendectomy 14.Status post hysterectomy 15.FX L-1 from fall at home 16.Osteoporosis 17.Depression/anxiety 18.Mini stroke LAST VITALS: Temperature 98.2, pulse 79, respiratory rate 18, blood pressure 139/79 and pulse ox 97%. DISCHARGE INSTRUCTIONS: Discharge home today. Appointment with the clinic has been cancelled. Followup with Dr. Deonte Dennisday November 20 at 9am. [facility] has been notified of your discharge and need to resume services. Patient is a DNR. MEDICATIONS AT DISCHARGE: [place] 7.5-325 one tablet PO three times a day ProAir 1 puff IH four times a day Norvasc 5mg Po daily Symbicort 80-4.5 two puff IH twice a day Coreg 6.25mg PO twice a day Aggrenox one capsule PO Q 12 horus Ferrous sulfate 324mg PO twice a day Neurontin 600mg PO twice a day Robitussin 10ml PO twice a day Hyzaar 50/12.5mg PO daily Singulair 10mg PO daily Protonix 40mg PO twice a day Requip 1mg PO daily Carafate 1gram PO ACHS Spiriva 1 capsule IH daily ALLERGIES: Tizanidine Aspirin Penicillins NEW PRESCRIPTIONS: Keflex 500mg take one capsule two times a day for 5 days. Take until all gone Prednisone 10ng take one tablet two times a day for 5 days. Take with food. Hyzaar 50-12.5mg take one tablet daily Stop Cozaar Decrease Norvasc to 5mg (take 1/2 tablet you currently have) at bedtime DIET INSTRUCTIONS: As tolerated ACTIVITY: Gradually resume activity SMOKING: Stop smoking DISEASE SPECIFIC EDUCATION: COPD Medication management including changes Smoking cessation Steroid Therapy ABX therapy HOSPITAL COURSE: David Duvall was hospitalized with acute respiratory failure and acute bronchitis. Her condition was stabilized on IV antibiotics, steroids and NEBS treatment. At the time of discharge she was feeling a lot better. Her color improved and her mental status was sharp. Lungs decreased breath sounds but clear. She had echo which showed normal LV contractility and LVH. She was advised to quit smoking, counseling for smoking done. The discharge medications were Keflex and steroids. Side effects of steroids with avascular necrosis of femoral heads, diabetes and osteoporosis all discussed. She was advised BMD and she declined. Medication changes were made as mentioned above. The patient at the time of discharge stable. TIME SPENT: More than 60 minutes. MTDD
--- NOTE | 2017-11-15 11:52 | PN ---
11/12/17: Level 5 11/13/17: Intermediate 11/14/17: Intermediate 11/15/17: D as in discharge MTDD
[2017-11-15 13:54] VITALS: BP 138/81; TEMP 98.6
== END 2017-11-15 14:40 | disposition home or self-care (01) | DRG 204 ==
LOC: ED 15:48 → MEDSURG B 17:32
PROVIDERS: ADMIT Internal Medicine; ATTEND Internal Medicine
DX: R06.02 Shortness of breath (principal); J96.90 Respiratory failure, unspecified, unspecified whether with hypoxia or hypercapnia; J44.1 Chronic obstructive pulmonary disease with (acute) exacerbation; J40 Bronchitis, not specified as acute or chronic; R06.00 Dyspnea, unspecified; R53.1 Weakness; D64.9 Anemia, unspecified; H26.9 Unspecified cataract; G25.81 Restless legs syndrome; K44.9 Diaphragmatic hernia without obstruction or gangrene; I10 Essential (primary) hypertension; E78.5 Hyperlipidemia, unspecified; F41.8 Other specified anxiety disorders; M81.0 Age-related osteoporosis without current pathological fracture; M19.90 Unspecified osteoarthritis, unspecified site
CPT/HCPCS: 36415; 80053; 82550; 82803; 84484; 85025; 93005; 93010; 94640; 96374; 97802; 99284

== ENCOUNTER 2017-12-28 14:43 | Outpatient (CLI) | payer OTHER ==
--- NOTE | 2017-12-28 15:36 | DI ---
EXAM: PA and lateral views of the chest HISTORY: Chronic obstructive pulmonary disease exacerbation COMPARISON: Chest x-ray 07/11/[address] chest 11/12/2017 FINDINGS: The cardiomediastinal silhouette is unchanged. There is a small hiatal hernia. The lungs are hyperinflated.. There is no pneumothorax or pleural effusion. There is no consolidation, nodul e or mass. The osseous structures demonstrate vertebral body treatment changes at L1. There are julio gical clips in the upper abdomen. IMPRESSION: No acute cardiopulmonary process or consolidation with stable findings of chronic obstru ctive pulmonary disease. Small hiatal hernia is present.
== END 2017-12-28 14:44 | disposition home or self-care (01) ==
LOC: RAD 14:43
PROVIDERS: ATTEND Family Medicine
DX: J44.1 Chronic obstructive pulmonary disease with (acute) exacerbation (principal)

== ENCOUNTER 2018-03-16 15:50 | Inpatient (IN) ==
--- NOTE | 2018-03-16 16:55 | CT ---
EXAM: CT of the head without contrast. HISTORY: Numbness of arm. COMPARISON: 10/29/2017 MRI A, 07/23/2017 CT. TECHNIQUE: Noncontrast CT of the head. FINDINGS: No intracranial hemorrhage or mass effect is identified. There is mild prominence of the sulci. Min imal ventricular prominence is seen. Advanced bicerebral white matter hypodensities are again seen. 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 No hernandez white matter differentiati on loss is seen to suggest an acute infarct. Intracranial calcified atherosclerotic plaque is seen. The calvarium is intact. The visualized paranasal sinuses are unopacified. IMPRESSION: No evidence of an acute intracranial process. Mild atrophy. Advanced chronic small vessel ischemic changes. Findings were discussed with Janel Handy RN at 1650 hours on 03/16/18.
--- NOTE | 2018-03-16 17:24 | ED.PDOC ---
General ED Provider: Dr. ROBSON SHANNON Chief Complaint: Extremity Pain/Injury Stated Complaint: Patient is a 72 year old female who comes to the ER with complains of intermittent left arm numbness since 0800am today. Also c/o left sided chest pain, is tender to touch.Has a history of Oxygen dependent COPD. Time Seen by Physician: 16:00 Mode of Arrival: Walk-In Information Source: Patient, Family Primary Care Provider: HARESH MAI Nursing and Triage Documentation Reviewed and Agree: Yes Does patient meet sepsis criteria?: No System Inflammatory Response Syndrome: Not Applicable Sepsis Protocol: For patient's 13 years and over: Temp is 96.8 and below OR 101 and greater Pulse >90 BPM Resp >20/minute Acutely Altered Mental Status Are patient's symptoms suggestive of a new infection, such as: -Pneumonia -Skin, Soft Tissue -Endocarditis -UTI -Bone, Joint Infection -Implantable Device -Acute Abdominal Infection -Wound Infection -Meningitis -Blood Stream Catheter Infection -Unknown Review of Systems - Review Of Systems Constitutional: Reports: No symptoms Eyes: Reports: No symptoms Ears, Nose, Mouth, Throat: Reports: No symptoms Respiratory: Reports: Cough, Short of air (chronic ) Cardiac: Reports: Chest pain GI: Reports: No symptoms : Reports: No symptoms Musculoskeletal: Reports: No symptoms Skin: Reports: No symptoms Neurological: Reports: Anxiety, Numbness (Left arm Numbness) Endocrine: Reports: No symptoms Hematologic/Lymphatic: Reports: No symptoms All Other Systems: Reviewed and Negative Past Medical History - Past Medical History Previously Healthy: No Endocrine: Reports: None Cardiovascular: Reports: None Respiratory: Reports: COPD Hematological: Reports: Anemia Gastrointestinal: Reports: None Genitourinary: Reports: None Neuro/Psych: Reports: None Musculoskeletal: Reports: Arthritis, Joint Pain, Other (osteoporsis ). Denies: None Cancer: Reports: None Last Menstrual Period: none - Surgical History General Surgical History: Reports: Hysterectomy - Family History Family History: Reports: Unknown - Social History Smoking Status: Current some day smoker, Light tobacco smoker Hx Substance Use: No Alcohol Screening: None Physical Exam - Physical Exam Appearance: Ill-appearing Pain Distress: Mild Eyes: BRADLEY, EOMI, Conjunctiva clear Neck: Supple Respiratory: Airway patent, Breath sounds equal, Breath sounds diminished Cardiovascular: RRR, Pulses normal, No rub, No murmur GI/: Soft, Nontender, No masses, Bowel sounds normal, No Organomegaly Musculoskeletal: Normal strength, ROM intact, No edema, No calf tenderness Skin: Warm, Dry Neurological: Sensation intact, Motor intact, Reflexes intact, Alert, Oriented Psychiatric: Anxious - NIH Stroke Scale 1a. Level of Consciousness: 0=Alert and keenly responsive 1b. Level of Consciousness Questions: 0=Answers correctly to two questions 1c. Level of Consciousness Commands: 0=Performs two tasks correctly 2. Best Gaze: 0=Normal 3. Visual: 0=No visual loss 4. Facial Palsy: 0=Normal 5a. Motor Left Arm: 0=No drift,arm holds 90 degrees for 10 sec., leg 30 degrees for 5 sec. 5b. Motor Right Arm: 0=No drift,arm holds 90 degrees for 10 sec., leg 30 degrees for 5 sec. 6a. Motor Left Le=No drift,arm holds 90 degrees for 10 sec., leg 30 degrees for 5 sec. 6b. Motor Right Le=No drift,arm holds 90 degrees for 10 sec., leg 30 degrees for 5 sec. 7. Limb Ataxia: 0=Absent 8. Sensory: 0=Normal 9. Best Language: 0=No aphasia 10. Dysarthria: 0=Normal 11. Extincion and Inattention: 0=Normal Stroke Scale Total: 0 Interpretation - Radiology Interpretation Radiology Interpretation By: Radiologist Radiology Results: Negative Exam Interpreted: CT Scan - Final Tester Rate: Normal Rhythm: Sinus Ectopy: None - EKG Interpretation Time of EKG #1: 16:58 Rate: Liam Rhythm: Sinus Interpretation: non specific T waves Re-Evaluation - Re-Evaluation Status: Improved Physician Notification - Case Discussed Physician Notified: Dr Clemons Time of Notification: 17:45 Critical Care Note - Critical Care Note Total Time (mins): 0 Course - Course Hematology/Chemistry: 03/16/18 16:45 03/16/18 16:45 Orders, Labs, Meds: Lab Review 03/16/18 03/16/18 03/16/18 16:45 16:45 17:49 WBC 8.61 RBC 3.21 L Hgb 11.2 L Hct 32.5 L MCV 101.2 H MCH 34.9 H MCHC 34.5 RDW Coeff of Lynette 12.7 Plt Count 313 Immature Gran % (Auto) 0.3 Neut % (Auto) 61.5 Lymph % (Auto) 27.2 [place] % (Auto) 8.4 Eos % (Auto) 2.0 Baso % (Auto) 0.6 Immature Gran # (Auto) 0.0 Neut # (Auto) 5.3 Lymph # (Auto) 2.3 [place] # (Auto) 0.7 Eos # (Auto) 0.2 Baso # (Auto) 0.1 Puncture Site Lb O2 Saturation 99.0 ABG pH 7.428 ABG pCO2 50.5 H ABG pO2 132.0 H ABG HCO3 33.4 H ABG Total CO2 35 H ABG Base Excess 9 H O2 Delivery Device Nc Oxygen Liter Flow 3.00 Sodium 127.8 L Potassium 3.11 L Chloride 88.3 L Carbon Dioxide 35.6 H Anion Gap 7.01 BUN 6.9 L Creatinine 0.64 Estimated GFR (MDRD) 91.00 BUN/Creatinine Ratio 10.78 Glucose 127.0 H Calcium 8.65 Total Bilirubin 0.18 L AST 26.1 ALT 11.4 Alkaline Phosphatase 47.0 L Total Creatine Kinase 87.0 Troponin I < 0.012 Total Protein 5.85 L Albumin 3.44 L Globulin 2.41 Albumin/Globulin Ratio 1.42 Orders Category Date Time Status ADMIT PATIENT INPATIENT .TO [facility] (MONITORED BED) ADMISSION 03/16/18 17: 50 Active ABG DRAW REQUEST Routine CARDIO 03/16/18 17:49 Completed ECHOCARDIOGRAM 2D-M MODE Routine CARDIO 03/16/18 17:31 Ordered EKG-(ED ONLY) Stat CARDIO 03/16/18 16:24 Completed NEBULIZER TREATMENT Routine CARDIO 03/16/18 17:35 Active OXYGEN Routine CARDIO 03/16/18 17:31 Completed INTAKE & OUTPUT Q8HR CARE 03/16/18 17:31 Active NEUROLOGICAL CHECKS Q2HR CARE 03/16/18 17:31 Active TELEMETRY MONITORING TELE CARE 03/16/18 17:50 Active VITAL SIGNS Q4HR CARE 03/16/18 17:31 Active ED SUBSTANCE ABUSE COUNSELOR APPLIED .ONCE EMERGENCY 03/16/18 16:24 Active ED IV/MEDIPORT/POWERPORT .ONCE EMERGENCY 03/16/18 16:24 Active ABG Stat LAB 03/16/18 17:49 Completed BASIC METABOLIC PANEL DAILY@0600 LAB 03/17/18 06:00 Ordered BASIC METABOLIC PANEL DAILY@0600 LAB 03/18/18 06:00 Ordered CBC W/ AUTO DIFF DAILY@0600 LAB 03/17/18 06:00 Ordered CBC W/ AUTO DIFF DAILY@0600 LAB 03/18/18 06:00 Ordered CBC W/ AUTO DIFF Stat LAB 03/16/18 16:45 Completed COMPREHENSIVE METABOLIC PANEL Stat LAB 03/16/18 16:45 Completed CREATINE KINASE Q8H LAB 03/16/18 23:45 Ordered CREATINE KINASE Q8H LAB 03/17/18 07:45 Ordered CREATINE KINASE Stat LAB 03/16/18 16:45 Completed TROPONIN I Q8H LAB 03/16/18 23:45 Ordered TROPONIN I Q8H LAB 03/17/18 07:45 Ordered TROPONIN I Stat LAB 03/16/18 16:45 Completed 0.9 % Sodium Chloride [Saline Flush] MEDS 03/16/18 16:24 Ordered 1 syr IVF PRN PRN Amlodipine Besylate [Norvasc] MEDS 03/16/18 21:00 Ordered 5 mg PO BEDTIME Aspirin/Dipyridamole 25/200 mg [Aggrenox Capsule] MEDS 03/16/18 18:00 Ordered 1 cap PO Q12H Budesonide/Formoterol Fumarate [Symbicort 80-4.5 Mcg MEDS 03/16/18 21:00 Ordered Inhaler] 2 puff IH BID Budesonide/Formoterol Fumarate [Symbicort 80-4.5 Mcg MEDS 03/16/18 21:00 Ordered Inhaler] DOSE puff IH BID Carvedilol [Coreg] MEDS 03/17/18 08:00 Ordered 6.25 mg PO BIDWM Enoxaparin Sodium [Lovenox] MEDS 03/17/18 09:00 Ordered 40 mg SUBCUT DAILY Ferrous Sulfate [Iron] MEDS 03/16/18 21:00 Ordered 325 mg PO BID Fluticasone Propionate [Flonase] MEDS 03/17/18 09:00 Ordered 2 spray DOUG DAILY Gabapentin [Gabapentin] MEDS 03/16/18 21:00 Ordered 1 tab PO BID Hydrocodone Bit/Acetaminophen [[place] 7.5-325] MEDS 03/16/18 21:00 Ordered DOSE tab PO TID Ipratropium [place] [Ipratropium [place]] MEDS 03/16/18 17:45 Ordered 0.03 % NS 2 puff 2-3x daily Ipratropium/Albuterol Neb [Duoneb] MEDS 03/16/18 20:00 Ordered 1 vial NEB RTQID Losartan/Hydrochlorothiazide [Hyzaar 50-12.5 mg Tab] MEDS 03/17/18 09:00 Ordered 1 tab PO DAILY Melatonin/Pyridoxine HCl (B6) [Melatonin 10 mg Tablet] MEDS 03/16/18 21:00 Ordered 10 mg PO BEDTIME Montelukast Sodium [Singulair] MEDS 03/17/18 09:00 Ordered 10 mg PO DAILY Pantoprazole Sodium [Protonix] MEDS 03/16/18 21:00 Ordered 40 mg PO BID Ropinirole HCl [Requip] MEDS 03/17/18 09:00 Ordered 1 mg PO DAILY Sucralfate [Carafate] MEDS 03/16/18 21:00 Ordered 1 gm PO TID Tiotropium [place] [Spiriva] MEDS 03/17/18 09:00 Ordered DOSE cap IH DAILY RESUSCITATION STATUS Routine OTHERS 03/16/18 17:31 Ordered CHEST, 1V AP ONLY Stat RADS 03/16/18 16:[address] HEAD W/O CONTRAST Stat RADS 03/16/18 16:24 Completed Medications Generic Name Dose Route Start Last Admin Trade Name Freq PRN Reason Stop Dose Admin Hydrocodone Bitart/Acetaminophen tab 03/16/18 21:00 [place] 7.5-325 PO TID ARTHUR Albuterol/Ipratropium 1 vial 03/16/18 20:00 Duoneb NEB RTQID ARTHUR Amlodipine Besylate 5 mg 03/16/18 21:00 Norvasc PO BEDTIME ARTHUR Budesonide/Formoterol Fumarate 2 puff 03/16/18 21:00 Symbicort 80-4.5 Mcg Inhaler IH BID ARTHUR Budesonide/Formoterol Fumarate puff 03/16/18 21:00 Symbicort 80-4.5 Mcg Inhaler IH BID ARTHUR Carvedilol 6.25 mg 03/17/18 08:00 Coreg PO BIDWM ARTHUR Dipyridamole/Aspirin 1 cap 03/16/18 18:00 Aggrenox Capsule PO Q12H ARTHUR Enoxaparin Sodium 40 mg 03/17/18 09:00 Lovenox SUBCUT DAILY ARTHUR Fluticasone Propionate 2 spray 03/17/18 09:00 Flonase DOUG DAILY ARTHUR HCTZ/Losartan Potassium 1 tab 03/17/18 09:00 Hyzaar 50-12.5 Mg Tab PO DAILY ARTHUR Montelukast Sodium 10 mg 03/17/18 09:00 Singulair PO DAILY ARTHUR Non-Formulary Medication 325 mg 03/16/18 21:00 Ferrous Sulfate [Iron] PO BID ARTHUR Non-Formulary Medication 1 tab 03/16/18 21:00 Gabapentin [Gabapentin] PO BID ARTHUR Non-Formulary Medication 0.03 % 03/16/18 17:45 Ipratropium [place] [Ipratropium [place]] NS 2 puff 2-3x daily ARTHUR Non-Formulary Medication 10 mg 03/16/18 21:00 Melatonin/Pyridoxine Hcl (B6) [Melatonin 10 Mg Tablet] PO BEDTIME ARTHUR Pantoprazole Sodium 40 mg 03/16/18 21:00 Protonix PO BID ARTHUR Potassium Chloride 20 meq 03/17/18 08:00 K-Dur PO DAILYWM ARTHUR Ropinirole HCl 1 mg 03/17/18 09:00 Requip PO DAILY ATRHUR Sodium Chloride 1 syr 03/16/18 16:24 Saline Flush IVF PRN PRN To flush IV Sucralfate 1 gm 03/16/18 21:00 Carafate PO TID ARTHUR Tiotropium [place] cap 03/17/18 09:00 Spiriva IH DAILY ARTHUR Discontinued Medications Generic Name Dose Route Start Last Admin Trade Name Freq PRN Reason Stop Dose Admin Potassium Chloride 20 meq 03/16/18 18:43 03/16/18 18:53 K-Dur PO 03/16/18 18:44 20 meq ONCE STA Administration Vital Signs: Temp Pulse Resp BP Pulse Ox 03/16/18 15:52 98.7 F 73 20 123/76 98 Departure - Departure Time of Disposition: 17:30 Disposition: ADMITTED INPATIENT Discharge Problem: TIA (transient ischemic attack), Hyponatremia Condition: Fair Pt referred to PMD for follow-up: No IPMP verified?: No Allergies/Adverse Reactions: Allergies tizanidine HCl [From Zanaflex] Allergy (Severe, Verified 03/16/18 15:56) hallucinates Patient will notify drugstore. PM already has been notified valacyclovir HCl [From Valtrex] Adverse Reaction (Severe, Verified 03/16/18 15: 56) Itching Altered mental status, dizziness, confusion aspirin Adverse Reaction (Verified 03/16/18 15:56) Abdominal Pain Penicillins Adverse Reaction (Verified 03/16/18 15:56) Rash Home Medications: Ambulatory Orders Budesonide/Formoterol Fumarate [Symbicort 80-4.5 Mcg Inhaler] 2 puff IH BID 01/18 Hydrocodone/Acetaminophen [[place] 7.5-325 Tablet] 1 each PO TID 10/30/16 Melatonin/Pyridoxine HCl (B6) [Melatonin 10 mg Tablet] 10 mg PO BEDTIME Disposition Discussed With: Patient, Family
--- NOTE | 2018-03-16 17:34 | DI ---
EXAM: Single view chest COMPARISON: Chest Xray from 12/28/2017 HISTORY: Chest pain FINDINGS: Lungs are clear with no lobar consolidation, failure, large effusion or significant atelec tasis. Cardiac and mediastinal silhouettes show no acute abnormality. There is a hiatal hernia. The re is calcific atherosclerosis. There has been prior cement augmentation in the upper lumbar area. N o acute soft tissue or osseous abnormalities. IMPRESSION: No active disease.
[2018-03-16] MEDS ORDERED: K-DUR PO STA (18:43)
--- NOTE | 2018-03-16 19:02 | DI ---
EXAM: Three-view cervical spine COMPARISON: None HISTORY: Neck pain FINDINGS: There is no acute fracture. There is a grade 1 degenerative listhesis at C3-4. There is no compression fracture. The disk spaces are well maintained. The prevertebral soft tissues are unrem arkable. The facets maintain appropriate alignment. The dens is intact on the open mouth view. The re is advanced calcification of the carotid bifurcations. There are advanced emphysematous changes i n the upper lung tobin. IMPRESSION: 1. No acute abnormality in the cervical spine. 2. Degenerative changes as noted. 3. Advanced calcific atherosclerosis of the carotid arteries. 4. Advanced emphysema.
[2018-03-16 19:52] VITALS: BMI 20.9
[2018-03-16] MEDS: DUONEB NEB SCH (20:41)
[2018-03-16] MEDS ORDERED: NORCO 7.5-325 PO SCH (21:00)
[2018-03-16] MEDS ORDERED: CARAFATE PO SCH (21:00)
[2018-03-16] MEDS ORDERED: NON-FORMULARY MEDICATION (Ferrous Sulfate [Iron] 325 MG) PO SCH (21:00)
[2018-03-16] MEDS ORDERED: MELATONIN PO SCH (21:00)
[2018-03-16] MEDS ORDERED: GABAPENTIN PO SCH (21:00)
[2018-03-16] MEDS ORDERED: SYMBICORT 80-4.5 MCG INHALER IH SCH (21:00)
[2018-03-16] MEDS ORDERED: PYRIDOXINE HCL PO SCH (21:00)
[2018-03-16] MEDS ORDERED: FERROUS SULFATE ONE (21:08)
[2018-03-16] MEDS: PROTONIX PO SCH (21:09)
[2018-03-16] MEDS: NORVASC PO SCH (21:09)
[2018-03-16] MEDS: SYMBICORT 80-4.5 MCG INHALER IH SCH (21:10)
[2018-03-16] MEDS: NORCO 7.5-325 PO PRN (21:43)
[2018-03-16] MEDS: AGGRENOX CAPSULE PO SCH (23:02)
[2018-03-17] MEDS: DUONEB NEB SCH ×4 (04:54→20:36)
[2018-03-17] MEDS: AGGRENOX CAPSULE PO SCH ×2 (05:49→20:44)
[2018-03-17] MEDS ORDERED: K-DUR PO SCH (08:00)
[2018-03-17] MEDS: FERROUS SULFATE PO SCH ×2 (09:21→20:44)
[2018-03-17] MEDS: NEURONTIN PO SCH ×2 (09:22→20:44)
[2018-03-17] MEDS: REQUIP PO SCH (09:22)
[2018-03-17] MEDS: HYZAAR 50-12.5 MG TAB PO SCH (09:23)
[2018-03-17] MEDS: COREG PO SCH ×2 (09:23→16:30)
[2018-03-17] MEDS: SYMBICORT 80-4.5 MCG INHALER IH SCH ×2 (09:24→20:52)
[2018-03-17] MEDS: FLONASE NAS SCH (09:25)
[2018-03-17] MEDS: SPIRIVA IH SCH (09:26)
[2018-03-17] MEDS: IPRATROPIUM BROMIDE 0.03% NS SCH ×4 (09:27→22:56)
[2018-03-17] MEDS: LOVENOX SUBCUT SCH (09:28)
[2018-03-17] MEDS: PROTONIX PO SCH ×2 (09:28→16:15)
[2018-03-17] MEDS: CARAFATE PO SCH ×2 (10:17→16:12)
[2018-03-17] MEDS: NORCO 7.5-325 PO PRN ×2 (10:38→20:47)
[2018-03-17] MEDS: K-DUR PO SCH ×2 (14:11→16:30)
[2018-03-17] MEDS ORDERED: ZOFRAN 4 MG/2 ML IVP STA (15:10)
[2018-03-17] MEDS: NORVASC PO SCH (20:44)
[2018-03-17] MEDS ORDERED: PYRIDOXINE HCL PO SCH (21:00)
[2018-03-17] MEDS ORDERED: SINGULAIR PO SCH (21:00)
[2018-03-17] MEDS ORDERED: MELATONIN PO SCH (21:00)
[2018-03-18] MEDS: DUONEB NEB SCH ×3 (05:02→14:08)
[2018-03-18 05:42] VITALS: BP 134/79; TEMP 97.5
[2018-03-18] MEDS: CARAFATE PO SCH ×2 (05:51→10:40)
[2018-03-18] MEDS: PROTONIX PO SCH (05:51)
--- NOTE | 2018-03-18 08:37 | PCM.PROG ---
Attending Provider: ATTENDING PROVIDER: [facility] This patient is seen with Joyce Hill, Nurse Practitioner. DATE OF SERVICE: 03/18/18 SUBJECTIVE: This 72 year old WHITE/ F was hospitalized 03/16/18. The patient is resting comfortably. No arm numbness or chest pain. The patient is scheduled for an echo. REVIEW OF SYSTEMS: CONSTITUTIONAL: No night sweats. No fatigue, malaise, lethargy. No fever or chills. HEENT: Eyes: No visual changes. No eye pain. No eye discharge. ENT: No runny nose. No epistaxis. No sinus pain. No odynophagia. No congestion. RESPIRATORY: No cough, no congestion. No hemoptysis. No shortness of breath. CARDIOVASCULAR: No angina symptoms. No CHF symptoms. No atypical chest pain for CAD. No palpitations. No orthopnea.. GASTROINTESTINAL: No abdominal pain. No nausea or vomiting. No diarrhea or constipation. No hematemesis. No hematochezia. GENITOURINARY: No urgency. No frequency. No dysuria. No hematuria. No obstructive symptoms. No discharge. No pain. No significant abnormal bleeding. MUSCULOSKELETAL: No musculoskeletal pain; no joint swelling. NEUROLOGICAL: Awake, alert, oriented to time, place and person. No headache. No neck pain. No syncope. No seizures. No dizziness. PSYCHIATRIC: Not anxious. No depression. No suicidal thoughts. No homicidal thoughts. SKIN: No rash. No lesions. No wounds. ENDOCRINE: No unexplained weight loss. No weight gain. HEMATOLOGIC/LYMPHATIC: No anemia. No purpura. No petechiae. No prolonged or excessive bleeding. No palpable lymph nodes. PHYSICAL EXAMINATION: GENERAL: The patient is awake, alert and oriented, lying/sitting in bed in no distress. VITAL SIGNS: Temperature 97.5 F, Pulse 60, Respiratory Rate 20, BP 134/79, Pulse Ox 100% HEENT: Head normocephalic, atraumatic. Eyes: Extraocular muscles are intact. Pupils are equal, round and reactive to light and accommodation. Ears: No lesions. Nose appeared normal. Throat: No exudate or erythema. NECK: Supple. No JVD, no carotid bruit. No lymphadenopathy or thyromegaly. LUNGS: Diminished breath sounds. Clear to auscultation. Percussion note normal. Chest symmetrical. HEART: S1, S2, no S3. No murmurs. No cyanosis or clubbing. No ascites. Pulses: Dorsalis pedis and posterior tibial pulses +1 to +2 both sides. ABDOMEN: Soft. Non-tender. Bowel sounds active. No CVA tenderness. No mass felt. EXTREMITIES: No edema. Full range of motion of all extremities, equal. NEUROLOGIC: No focal deficit. Cranial nerves II through XII are grossly intact. No headache, no double vision or headache. SKIN: Not dry. Intact. Turgor-normal. LYMPHATIC: No palpable lymph nodes/no lymphedema. MUSCULOSKELETAL: Normal joints with no swelling. Muscle tone is normal. LAB REVIEW: 03/18/18 04:50 03/18/18 04:50 03/18/18 04:50: Sodium 129.7 L, Potassium 3.86, Chloride 90.8 L, Carbon Dioxide 39.7 H, Anion Gap 3.06, BUN 3.8 L, Creatinine 0.56 L, Estimated GFR (MDRD) 107.00, BUN/Creatinine Ratio 6.78, Glucose 95.4, Calcium 8.71, Total Bilirubin 0.20, AST 18.9, ALT 10.5, Alkaline Phosphatase 46.9 L, Total Protein 5.29 L, Albumin 3.07 L, Globulin 2.22, Albumin/Globulin Ratio 1.38 03/18/18 04:50: WBC 6.04, RBC 2.88 L, Hgb 10.2 L, Hct 29.4 L, MCV 102.1 H, MCH 35.4 H, MCHC 34.7, RDW Coeff of Lynette 12.7, Plt Count 292, Immature Gran % (Auto) 0.2, Neut % (Auto) 52.9, Lymph % (Auto) 33.4, [place] % (Auto) 10.8 H, Eos % (Auto ) 2.2, Baso % (Auto) 0.5, Immature Gran # (Auto) 0.0, Neut # (Auto) 3.2, Lymph # (Auto) 2.0, [place] # (Auto) 0.7, Eos # (Auto) 0.1, Baso # (Auto) 0.0 03/17/18 07:58: Sodium 130.4 L, Potassium 3.54, Chloride 89.9 L, Carbon Dioxide 40.2 H*, Anion Gap 3.84, BUN 3.4 L, Creatinine 0.53 L, Estimated GFR (MDRD) 114.00, BUN/Creatinine Ratio 6.41, Glucose 106.7 H, Calcium 8.87, Total Bilirubin 0.32, AST 22.7, ALT 11.3, Alkaline Phosphatase 49.5 L, Total Creatine Kinase 78.9, Troponin I < 0.012, Total Protein 6.10 L, Albumin 3.55, Globulin 2.55, Albumin/Globulin Ratio 1.39 03/17/18 07:58: WBC 7.75, RBC 3.25 L, Hgb 11.3 L, Hct 33.1 L, MCV 101.8 H, MCH 34.8 H, MCHC 34.1, RDW Coeff of [place]ette 12.8, Plt Count 321, Immature Gran % (Auto) 0.3, Neut % (Auto) 67.0, Lymph % (Auto) 21.2, [place] % (Auto) 8.9, Eos % (Auto) 2.1, Baso % (Auto) 0.5, Immature Gran # (Auto) 0.0, Neut # (Auto) 5.2, Lymph # ( Auto) 1.6, [place] # (Auto) 0.7, Eos # (Auto) 0.2, Baso # (Auto) 0.0 ASSESSMENT: Please see below. 1. Cervical Radiculopathy 2. Chest pain-atypical 3. Hypertension 4. COPD PLAN: 1. Bilateral carotid scan 2. Echo Plan and coordination of the patient's care discussed in the presence of Locker Room Clerk and nurse. SCRIBED BY: Corey MOLINA scribed while in presence of service performed by Dr. Yung/Joyce Hill APRN on 03/18/18 ([id number])
[2018-03-18] MEDS: FLONASE NAS SCH (08:38)
[2018-03-18] MEDS: SPIRIVA IH SCH (08:39)
[2018-03-18] MEDS: SYMBICORT 80-4.5 MCG INHALER IH SCH (08:40)
[2018-03-18] MEDS: REQUIP PO SCH (08:41)
[2018-03-18] MEDS: HYZAAR 50-12.5 MG TAB PO SCH (08:41)
[2018-03-18] MEDS: K-DUR PO SCH ×2 (08:41→11:20)
[2018-03-18] MEDS: NEURONTIN PO SCH (08:41)
[2018-03-18] MEDS: FERROUS SULFATE PO SCH (08:41)
[2018-03-18] MEDS: COREG PO SCH (08:42)
[2018-03-18] MEDS: LOVENOX SUBCUT SCH (08:42)
[2018-03-18] MEDS: IPRATROPIUM BROMIDE 0.03% NS SCH (08:42)
[2018-03-18] MEDS: AGGRENOX CAPSULE PO SCH (08:42)
--- NOTE | 2018-03-18 10:15 | CM.DICTOOL ---
ADMISSION: 03/16/18 18:02 DISCHARGE: 03/18/18 FINAL DIAGNOSIS TIA - ACUTE CHEST PAIN HYPONATREMIA - ACUTE HISTORY OF: COPD STAGE 3 ANEMIA ARTHRITIS OSTEOPOROSIS S/P HYSTERECTOMY - DATE UNKNOWN S/P BILATERAL CATARACT - DATE UNKNOWN RESTLESS LEG SYNDROME HYPERTENSION HIATAL HERNIA S/P CHOLECYSTECTOMY - DATE UNKNOWN S/P APPENDECTOMY - DATE UNKNOWN FRACTURED L1 LAST VITALS Temp Pulse Resp BP Pulse Ox 97.5 F L 60 20 134/79 100 03/18/18 05:41 03/18/18 05:41 03/18/18 05:41 03/18/18 05:41 03/18/18 05:41 TAKE THESE MEDICATIONS AT HOME Hydrocodone Bitart/Acetaminophen ([place] 7.5-325) 1 tab PO TID PRN PRN Reason: back pain Last Admin: 03/17/18 20:47 Dose: 1 tab Amlodipine Besylate (Norvasc) 5 mg PO BEDTIME [facility] Last Admin: 03/17/18 20:44 Dose: 5 mg Budesonide/Formoterol Fumarate (Symbicort 80-4.5 Mcg Inhaler) 2 puff IH BID [facility] Last Admin: 03/18/18 08:40 Dose: 2 puff Carvedilol (Coreg) 6.25 mg PO BIDWM [facility] Last Admin: 03/18/18 08:42 Dose: 6.25 mg Dipyridamole/Aspirin (Aggrenox Capsule) 1 cap PO Q12HR [facility] Last Admin: 03/18/18 08:42 Dose: 1 cap Ferrous Sulfate (Ferrous Sulfate) 324 mg PO BID [facility] Last Admin: 03/18/18 08:41 Dose: 324 mg Fluticasone Propionate (Flonase) 2 spray DOUG DAILY [facility] Last Admin: 03/18/18 08:38 Dose: 2 spray Gabapentin (Neurontin) 600 mg PO BID [facility] Last Admin: 03/18/18 08:41 Dose: 600 mg HCTZ/Losartan Potassium (Hyzaar 50-12.5 Mg Tab) 1 tab PO DAILY [facility] Last Admin: 03/18/18 08:41 Dose: 1 tab Montelukast Sodium (Singulair) 10 mg PO BEDTIME [facility] Last Admin: 03/17/18 20:44 Dose: 10 mg Non-Formulary Medication (Ipratropium [place] [Ipratropium [place]]) 0.03 % NS TID [facility] Last Admin: 03/18/18 08:42 Dose: Not Given Non-Formulary Medication (Melatonin/Pyridoxine Hcl (B6) [Melatonin 10 Mg Tablet] ) 10 mg PO BEDTIME [facility] Last Admin: 03/17/18 22:57 Dose: Not Given Pantoprazole Sodium (Protonix) 40 mg PO BIDAC [facility] Last Admin: 03/18/18 05:51 Dose: 40 mg Ropinirole HCl (Requip) 1 mg PO DAILY [facility] Last Admin: 03/18/18 08:41 Dose: 1 mg Sucralfate (Carafate) 1 gm PO TIDAC [facility] Last Admin: 03/18/18 05:51 Dose: 1 gm Tiotropium [place] (Spiriva) 1 cap IH DAILY [facility] Last Admin: 03/18/18 08:39 Dose: 1 cap ALLERGIES tizanidine HCl [From Zanaflex] Allergy (Severe, Verified 03/16/18 15:56) hallucinates valacyclovir HCl [From Valtrex] Adverse Reaction (Severe, Verified 03/16/18 15: 56) Itching aspirin Adverse Reaction (Verified 03/16/18 15:56) Abdominal Pain Penicillins Adverse Reaction (Verified 03/16/18 15:56) Rash Discontinued Medications Ondansetron HCl (Zofran 4 Mg/2 Ml) 4 mg IVP ONCE STA Stop: 03/17/18 15:11 Last Admin: 03/17/18 15:13 Dose: 4 mg Potassium Chloride (K-Dur) 20 meq PO DAILYWM [facility] Last Admin: 03/17/18 09:23 Dose: 20 meq Potassium Chloride (K-Dur) 20 meq PO ONCE STA Stop: 03/16/18 18:44 Last Admin: 03/16/18 18:53 Dose: 20 meq NEW PRESCRIPTIONS: NONE SMOKING: SMOKING CESSATION. LIGHT EVERY DAY SMOKER OF 3 CIGARETTES. DISEASE SPECIFIC EDUCATION: TIA HYPONATREMIA MEDICATIONS SMOKING CESSATION LAB REVIEW: 03/18/18 04:50 03/18/18 04:50 03/18/18 04:50: Sodium 129.7 L, Potassium 3.86, Chloride 90.8 L, Carbon Dioxide 39.7 H, Anion Gap 3.06, BUN 3.8 L, Creatinine 0.56 L, Estimated GFR (MDRD) 107.00, BUN/Creatinine Ratio 6.78, Glucose 95.4, Calcium 8.71, Total Bilirubin 0.20, AST 18.9, ALT 10.5, Alkaline Phosphatase 46.9 L, Total Protein 5.29 L, Albumin 3.07 L, Globulin 2.22, Albumin/Globulin Ratio 1.38 03/18/18 04:50: WBC 6.04, RBC 2.88 L, Hgb 10.2 L, Hct 29.4 L, MCV 102.1 H, MCH 35.4 H, MCHC 34.7, RDW Coeff of [place] 12.7, Plt Count 292, Immature Gran % (Auto) 0.2, Neut % (Auto) 52.9, Lymph % (Auto) 33.4, [place] % (Auto) 10.8 H, Eos % (Auto ) 2.2, Baso % (Auto) 0.5, Immature Gran # (Auto) 0.0, Neut # (Auto) 3.2, Lymph # (Auto) 2.0, [place] # (Auto) 0.7, Eos # (Auto) 0.1, Baso # (Auto) 0.0 PLAN: DISCHARGE HOME TODAY. 03/18/18 CALL ADDUS WHEN PATIENT IS DISCHARGED . CONTINUE HOME MEDICATIONS PER NURSING SHEET. NO CHANGES NO NEW MEDICATIONS. DIET TOLERATED. ACTIVITY: GRADUALLY RESUME ACTIVITY. AVOID EXTREME COLD TEMPERATURES. FOLLOW UP WITH DR. MAI ON SundayMarch AT 830AM. IF UNABLE TO KEEP APPOINTMENT, PLEASE CALL TO RESCHEDULE [phone]. PATIENT IS A DO NOT RESUSCITATE. SITTING UP IN BED. ALERT AND ORIENTED X 4. Antione CRONIN APRN INTO SEE PATIENT. PATIENT STATES DOING "ALL-RIGHT" AND WANTS TO GO HOME. Antione CRONIN APRN DISCUSSED PLAN OF CARE INCLUDING CAROTID ULTRASOUND AND THEN DISCHARGE HOME IF WITHIN ACCEPTABLE LIMITS. ALSO DR. YUNG TO DO ECHO BEFORE DISCHARGE. PATIENT VERBALIZES UNDERSTANDING AND AGREEMENT. APPETITE IS FAIR. VITAL SIGNS ARE STABLE. HAS BEEN AFEBRILE. POX 100% ON O2 AT 2L/C. NEURO CHECKS HAVE BEEN WITHIN NORMAL LIMITS SINCE ADMIT. HEART TONES ARE REGULAR WITH TELEMETRY REVEALING SINUS RHYTHM. NO FURTHER C/O CHEST PAIN OR DISCOMFORT. LUNGS ARE COARSE WITH DIMINISHED BREATH SOUNDS. HAS NON-PRODUCTIVE COUGH. C/O DYSPNEA WITH ACTIVITY. ABDOMEN IS SOFT, NON-TENDER WITH BOWEL SOUNDS POSITIVE IN ALL 4 QUADS. LAST BM 03/18/18. PEDAL PUSES POSITIVE WITHOUT EDEMA. HAS SALINE LOCK IN LEFT FOREARM SITE IS CLEAR. IS INDEPENDENT WITH ACTIVITIES OF DAILY LIVING WITH STEADY/SLOW GAIT. SKIN IS WARM, DRY AND INTACT. DR. GOLDIE YUNG MD Antione CRONIN APRN
--- NOTE | 2018-03-18 13:18 | US ---
EXAM: ULTRASOUND CAROTID DUPLEX, BILATERAL HISTORY: Left arm numbness FINDINGS: Diaz-scale ultrasound, color Doppler and spectral analysis was performed. Velocities are in meters per second. By diaz scale and color Doppler imaging, there were regions of heterogeneous plaque formation identi fied within the carotid bulbs and internal carotid arteries. These regions of plaque appeared to rem ain less than 50% vessel diameter. RIGHT: External carotid artery peak systolic velocity: 0.89/0.14 Common carotid artery peak systolic velocity/end diastolic velocity: 0.83/0.2 Internal carotid artery peak systolic velocity: 0.85 ICA/CCA peak systolic velocity ratio: 1.0 ICA end diastolic velocity: 0.21 LEFT: External carotid artery peak systolic velocity: 0.81/0.2 Common carotid artery peak systolic velocity/end diastolic velocity: 0.62/0.17 Internal carotid artery peak systolic velocity: 0.71 ICA/CCA peak systolic velocity ratio: 1.1 ICA end diastolic velocity: 0.22 The right and left vertebral arteries were antegrade. IMPRESSION: 1. By diaz scale and color Doppler imaging, there were regions of heterogeneous plaque formation lucila ntified within the carotid bulbs and internal carotid arteries. These regions of plaque appeared to remain less than 50% vessel diameter. 2. Internal carotid artery peak systolic velocities and ICA/CCA peak systolic velocity ratios indica te no hemodynamically significant stenosis bilaterally. 3. Both tibial arteries were antegrade.
--- NOTE | 2018-03-19 07:57 | HP ---
DATE OF SERVICE: 03/16/18 HISTORY OF PRESENT ILLNESS: This is a 72-year-old white female who presented to the emergency room with left arm numbness, tingling, chest pain. PAST MEDICAL HISTORY: Hyponatremia COPD, Stage 3 Arthritis Osteoporosis Restless leg syndrome Hypertension Hiatal hernia Obesity History of fractured L1 Dyslipidemia PAST SURGICAL HISTORY: Hysterectomy Bilateral cataract repair Cholecystectomy Appendectomy REVIEW OF SYSTEMS: CONSTITUTIONAL: No night sweats. No fatigue, malaise, lethargy. No fever or chills. HEENT: Eyes: No visual changes. No eye pain. No eye discharge. ENT: No runny nose. No epistaxis. No sinus pain. No sore throat. No odynophagia. No ear pain. No congestion. RESPIRATORY: No cough, no congestion. No hemoptysis. No shortness of breath. CARDIOVASCULAR: Sharp chest pain. No angina symptoms. No CHF symptoms. No palpitations. No PND. No orthopnea. GASTROINTESTINAL: No abdominal pain. No nausea or vomiting. No diarrhea or constipation. No hematemesis. No hematochezia. GENITOURINARY: No urgency. No frequency. No dysuria. No hematuria. No obstructive symptoms. No discharge. No pain. No significant abnormal bleeding. MUSCULOSKELETAL: Positive for left arm numbness. No musculoskeletal pain. No joint swelling. No arthritis. NEUROLOGICAL: No headache. No neck pain. No syncope. No seizures. No dizziness. PSYCHIATRIC: Not anxious. No depression. No suicidal thoughts. No homicidal thoughts. SKIN: No rash. No lesions. No wounds. ENDOCRINE: No unexplained weight loss. No weight gain. HEMATOLOGIC/LYMPHATIC: No anemia. No purpura. No petechiae. No prolonged or excessive bleeding. No palpable lymph nodes. PERSONAL/FAMILY/SOCIAL HISTORY: The patient is a current heavy daily smoker. She uses oxygen at home. MEDICATIONS: (HOME) Symbicort two puff IH b.i.d. Hydrocodone/Acetaminophen one each p.o. t.i.d. Denosumab (Prolia) 60 mg SQ q.3months Melatonin 10 mg p.o. bedtime Ferrous Sulfate 325 mg p.o. b.i.d. Singulair 10 mg p.o. daily Coreg 6.25 mg p.o. b.i.d. with meal Cyanocobalamin 1,000 mcg IJ once a month Budesonide/Formoterol 10.2 gm IH b.i.d. Amlodipine Besylate 5 mg p.o. bedtime Protonix 40 mg p.o. b.i.d. Aspirin/Dipyridamole 25/200 mg one cap p.o. q.12h Losartan/Hydrochlorothiazide one tab p.o. daily Spiriva 18 mcg IH daily Ropinirole 1 mg p.o. daily Sucralfate 1 gm p.o. t.i.d. Albuterol 8.5 gm IH q.i.d. Flonase 2 spray NS daily Ipratropium [place] 0.03% NS two puff 2-3x daily Gabapentin 600 mg one tab p.o. b.i.d. ALLERGIES: TIZANIDINE HCI, VALACYCLOVIR HCI, ASPIRIN, PENICILLIN PHYSICAL EXAMINATION: VITAL SIGNS: Temperature 98.7, pulse 73, BP 123/76, respiratory rate 20, oxygen 98%. HEENT: Head normocephalic, atraumatic. Eyes: Extraocular muscles are intact. Pupils are equal, round and reactive to light and accommodation. Ears: No lesions. Nose appeared normal. Throat: No exudate or erythema. NECK: Supple. No JVD, no carotid bruit. No lymphadenopathy or thyromegaly. LUNGS: Diminished breath sounds bilaterally. Clear to auscultation. Percussion note normal. Chest symmetrical. HEART: S1, S2, no S3. No murmurs. No cyanosis or clubbing. No ascites. Pulses: Dorsalis pedis and posterior tibial pulses +1 to +2 bilaterally. ABDOMEN: Soft. Nontender. Bowel sounds active. No CVA tenderness. No mass felt. EXTREMITIES: No edema. Full range of motion of all extremities, equal. NEUROLOGIC: No focal deficit. Cranial nerves II through XII are grossly intact. No headache, no double vision or headache. SKIN: Not dry. Intact. Turgor - normal. LYMPHATIC: No palpable lymph nodes/no lymphedema. MUSCULOSKELETAL: Normal joints with no swelling. Muscle tone is normal. Sodium 130, c02 40, BUN 3.4, creatinine 0.53, troponin less than 0.01, total protein 6.1, CK 78. White count 7.7, hemoglobin 11.3, hematocrit 33.1, platelets 321. ABGs on 3L pH 7.428, pc02 50.5, p02 132, base excess of 9, bicarb 33.4, TC02 35, 02 sat 99. EKG normal sinus rhythm. ASSESSMENT: 1. CHEST PAIN 2. LEFT ARM NUMBNESS 3. ACUTE HYPONATREMIA 4. COPD, STAGE 3 5. OSTEOARTHRITIS 6. DEGENERATIVE JOINT DISEASE 7. HYPERTENSION 8. HISTORY OF ANEMIA PLAN: 1. We will admit. 2. Routine telemetry orders. 3. CBC, CMP daily. 4. Follow cardiac enzymes. 5. Chest x-ray. 6. Lipid profile. 7. A1C. 8. PFT. 9. Carotid scan. 10. X-rays of the C-spine. 11. Continue all home medications. 12. 1 cc Decadron IM. 13. Start potassium 20 mEq b.i.d. p.o. 14. Low sodium diet. 15. Information regarding smoking cessation. 16. We will follow closely. TIME SPENT: More than 70 minutes. MTDD
--- NOTE | 2018-03-19 11:58 | DS ---
DATE OF SERVICE: 03/18/18 FINAL DIAGNOSIS: 1. TIA-acute 2. Chest pain 3. Hyponatremia-acute 4. History of COPD stage 3 5. Anemia 6. Arthritis 7. Osteoporosis 8. Status post hysterectomy- date unknown 9. Status post bilateral cataract-date unknown 10.Restless leg syndrome 11.Hypertension 12.Hiatal hernia 13.Status post cholecystectomy-date unknown 14.Status post appendectomy-date unknown 15.Fractured L1 LAST VITALS: Temperature 97.5, pulse 60, respiratory rate 20, blood pressure 134/79 and pulse ox 100. DISCHARGE INSTRUCTIONS: Discharge home today, 03/08/18. Call [facility] when patient is discharged. Continue home medications per nursing sheet. No changes. Followup with Dr. Bearden on SundayMarch 25 at 0830am. MEDICATIONS AT DISCHARGE: [place] 7.5-325 one tablet PO three times a day PRN Norvasc 5mg PO bedtime Symbicort 80-4.5mcg two puff IH twice a day Coreg 6.25mg PO twice a day Aggrenox capsule one capsule PO Q 12 hours Ferrous sulfate 324mg PO twice a day Flonase 2 spray DOUG daily Neurontin 600mg Po twice a day Hyzaar 50-12.5mg one tablet PO daily Singulair 10mg PO bedtime Ipratropium [place] 0.03% NS three times a day Melatonin 10mg PO bedtime Protonix 40mg PO twice a day Requip 1mg PO daily Carafate 1gram PO three times a day Spiriva 1capsule IH daily ALLERGIES: Tizanidine Valacyclovir Aspirin Penicillins DISCONTINUED MEDICATIONS: Zofran 4mg IVP once stat K-Dur 20meq PO daily K-Dur 20mew PO once stat NEW PRESCRIPTIONS: None DIET INSTRUCTIONS: As tolerated ACTIVITY: Gradually resume activity. Avoid extreme cold temperatures. SMOKING: Smoking cessation. Light everyday smoker of 3 cigarettes DISEASE SPECIFIC EDUCATION: TIA Hyponatremia Medications Smoking Cessation HOSPITAL COURSE: 72 year old white female who presented to the emergency room with left arm numbness and tingling, slightly dizzy and atypical chest pain. All cardiac enzymes are negative. Chest pain ruled noncardiac. Echo was performed by Dr. Clemons. Carotid scan was negative. X-ray of the C spine showed osteoarthritis, pain and numbness in the left arms due to cervical radiculopathy. CT of the brain was normal, no acute changes, no TIA or evidence of stroke. The patient's vital signs have remained within normal limits. Blood pressure has been well controlled. ABG were abnormal on admission and remained abnormal due to COPD which she is compensated. Over the course of the past several days we did IV fluids to increase her sodium. Potassium level is back to normal, 3.3 on admission. All the medications were continued and she was given 1cc of Decadron on admission. Today, day of discharge, she has remained alert and oriented times three during this entire visit. She reports no pain. No pain in her chest and the numbness has resolved in the her left again this is likely due to cervical radiculopathy and arthritis in her C spine. All cardiac enzymes were negative. See report for echocardiogram by Dr. Clemons. Information has been provided regarding smoking cessation. We will discharge her in stable condition with followup on March [address] Bearden. TIME SPENT: More than 60 minutes. FABRICE
--- NOTE | 2018-03-20 08:18 | ECHO2D ---
Date of Exam: 03/18/18 Ordering Physician: DR. HARESH MAI Room #[id number] Reason for Echo: TIA, H/O PERICARDIAL EFFUSION M-Mode Normal Adult Results LV Dimensions Normal Adult Results AoV Opening excursions >1.6 >1.6 LVEDD-base- 3.5-5.8 3.8 Ao root dimensions 2.0-3.7 3.6 LVESD-base- 3.1-4.6 L. Atrium dimensions 1.9-3.8 3.9 Post. Wall thickness 0.8-1.1 1.1 IV septum (thickness) 0.7-1.2 1.2 Post. Wall excursion 0.72-1.3 NORMAL Septal motion NORMAL Systolic motion R. Ventricular cavity 1.5-2.0 NORMAL LVEF 60% 80% Paradoxical septal wall motion NORMAL 2-D : 2-D M Mode Echocardiogram was performed using apical four chamber and left parasternal long and short axis views. Mitral, tricuspid and aortic valves appear to be normal. Contractility of the left ventricle seems to be normal, so is the cavity size. Left atrial cavity size and aortic root appear to be normal. There is no pericardial effusion. There is no thrombus noted in the left ventricular or left aortic cavity. No mitral valve prolapse noted. M-MODE: MV: NORMAL AV: NORMAL TV: NORMAL PV: CHAMBER SIZE: NORMAL WALL MOTION: NORMAL PERICARDIUM: SMALL PERICARDIAL EFFUSION (LAST VIEW 11/15/17) INTERPRETATION: 1. LEFT VENTRICULAR HYPERTROPHY 2. NORMAL LEFT VENTRICULAR CONTRACTILITY 3. NORMAL VALVES 4. SMALL, TRACE PERICARDIAL EFFUSION MTDD
--- NOTE | 2018-03-22 11:05 | PN ---
DATE OF SERVICE: 03/16/18 SUBJECTIVE: The patient was hospitalized through the emergency room after being seen by Dr. Basurto in the ER. The patient was brought to the emergency room with chest pain and left arm numbness. The chest pain was mostly chest wall pain with chest wall tenderness. According to the nursing staff in second time the patient didn' t have any weakness of left upper extremity. According to Dr. Basurto there was no weakness of any of the extremities. The patient does not have any symptoms of CHF, coronary insufficiency. CT scan of the head was negative. The patient is hospitalized for more or less observation for chest pain and also for left arm numbness. The patient is to have neuro-check frequently with telemetry and cardiac markers. The patient's arterial blood gasses on 3 liters had high pO2 and PCO2 with normal pH. The patient is now going to be on 1.5 liters. CONDITION: Stable. TIME SPENT: More than 30 minutes. Plan and coordination of the patient's care discussed in the presence of nurse. FABRICE
--- NOTE | 2018-03-22 11:48 | PN ---
DATE OF SERVICE: 03/17/18 SUBJECTIVE: 72 year old white female hospitalized with possibility of stroke but patient has left arm numbness with neck pain. CT spine x-ray showed cervical osteoarthritis and I think patient has radiculopathy. The patient's chest pain is mostly chest wall pain. EKG unchanged sinus rhythm. No acute changes noted. Cardiac markers are negative. The patient wants to go home. REVIEW OF SYSTEMS: CONSTITUTIONAL: No night sweats. No fatigue, malaise, lethargy. No fever or chills. HEENT: Eyes: No visual changes. No eye pain. No eye discharge. ENT: No runny nose. No epistaxis. No sinus pain. No sore throat. No odynophagia. No congestion. RESPIRATORY: No cough, no congestion. No hemoptysis. No shortness of breath. CARDIOVASCULAR: No angina symptoms. No CHF symptoms. No atypical chest pain for CAD. No palpitations. No PND. No orthopnea. GASTROINTESTINAL: No abdominal pain. No nausea or vomiting. No diarrhea or constipation. No hematemesis. No hematochezia. GENITOURINARY: No urgency. No frequency. No dysuria. No hematuria. No obstructive symptoms. No discharge. No pain. No significant abnormal bleeding. MUSCULOSKELETAL: No musculoskeletal pain; no joint swelling. NEUROLOGICAL: No headache. No neck pain. No syncope. No seizures. No dizziness. PSYCHIATRIC: Not anxious. No depression. No suicidal thoughts. No homicidal thoughts. SKIN: No rash. No lesions. No wounds. ENDOCRINE: No unexplained weight loss. No weight gain. HEMATOLOGIC/LYMPHATIC: No anemia. No purpura. No petechiae. No prolonged or excessive bleeding. No palpable lymph nodes. PHYSICAL EXAMINATION: VITAL SIGNS: Temperature 97.5, pulse 60, respiratory rate 20, blood pressure 124/70 and pulse ox 99%. HEENT: Head normocephalic, atraumatic. Eyes: Extraocular muscles are intact. Pupils are equal, round and reactive to light and accommodation. Ears: No lesions. Nose appeared normal. Throat: No exudate or erythema. NECK: Supple. No JVD, no carotid bruit. No lymphadenopathy or thyromegaly. LUNGS: Clear to auscultation. Percussion note normal. Chest symmetrical. HEART: S1, S2, no S3. No murmurs. No cyanosis or clubbing. No ascites. Pulses: Dorsalis pedis and posterior tibial pulses +1 to +2 bilaterally. ABDOMEN: Soft. Nontender. Bowel sounds active. No CVA tenderness. No mass felt. EXTREMITIES: No edema. Full range of motion of all extremities, equal. NEUROLOGIC: No focal deficit. Cranial nerves II through XII are grossly intact. No headache, no double vision or headache. SKIN: Not dry. Intact. Turgor - normal. LYMPHATIC: No palpable lymph nodes/no lymphedema. MUSCULOSKELETAL: Normal joints with no swelling. Muscle tone is normal. LABS: Hgb 11.2, hct 32, WBC 8,600 normal differential, creatinine 0.6, BUN 6, potassium 3.1. ASSESSMENT: 1. Chest pain, more like a chest wall pain 2. Left arm numbness related cervical radiculopathy 3. Hypokalemia 4. Chronic lung disease PLAN: 1. Give K-Dur three times a day 20mg instead of one a day 2. The patient has arthritic pain involving left ankle, cervical spine, neck. The patient also gives history of have back surgery and rib cage surgery nearly two years ago. The surgery was performed on the midthoracic area. Detail unknown 3. Neurological status stable. CONDITION: Stable. 3. TIME SPENT: More than 30 minutes. Plan and coordination of the patient's care discussed in the presence of nurse. FABRICE
--- NOTE | 2018-03-28 10:31 | PN ---
DATE OF SERVICE: 03/18/18 SUBJECTIVE: The patient was seen and examined with Nurse Practitioner. The patient's condition is stable. She has more like cervical radiculopathy with mild numbness on the lateral aspect of the arm which is more or less constant. C spine showed osteoarthritis. The patient does not have any exertional chest discomfort. Chest pain was just one pain. The patient's echo is same as before with borderline LVH. The effusion is small and less than what it was the echo done 6 months ago. CONDITION: Stable. TIME SPENT: More than 30 minutes. Plan and coordination of the patient's care discussed in the presence of nurse. FABRICE
--- NOTE | 2018-03-28 10:33 | PN ---
03/16/18: Level 5 03/17/18: Intermediate 03/18/18: D is for discharge MTDD
== END 2018-03-18 14:56 | disposition home or self-care (01) | DRG 69 ==
LOC: ED 15:50 → MEDSURG B 18:02
PROVIDERS: ADMIT Internal Medicine; ATTEND Internal Medicine
DX: G45.9 Transient cerebral ischemic attack, unspecified (principal); E87.1 Hypo-osmolality and hyponatremia; G25.81 Restless legs syndrome; J44.9 Chronic obstructive pulmonary disease, unspecified; F41.9 Anxiety disorder, unspecified; D64.9 Anemia, unspecified; I10 Essential (primary) hypertension; M19.90 Unspecified osteoarthritis, unspecified site; M81.0 Age-related osteoporosis without current pathological fracture; M54.12 Radiculopathy, cervical region; R20.0 Anesthesia of skin; R06.02 Shortness of breath; R05 Cough; Z99.81 Dependence on supplemental oxygen; Z72.0 Tobacco use
CPT/HCPCS: 36415; 80053; 82550; 82803; 84484; 85025; 93005; 93010; 94640; 99223; 99232; 99239; 99284

== ENCOUNTER 2018-03-21 06:49 | Outpatient (CLI) ==
[2018-03-21] MEDS ORDERED: DOBUTAMINE 500 MG-D5W 250 ML 250 ML IV ONE (07:16)
[2018-03-21] MEDS ORDERED: ATROPINE SULFATE PFS ONE (07:16)
--- NOTE | 2018-03-21 09:04 | DOBSTECHO ---
Date of Test: 03/21/18 Ordering Physician: DR. GOLDIE UYNG Occupation: RETIRED Smoking History: 40 PK/YRS Reason for Examination: CHEST PIN, LEFT ARM NUMBNESS, COPD Current Medications: SPIRIVA, SINGULAIR, LOSARTAN, NORCO, GABAPENTIN, FLONASE, PROLIA, COREG, SYMBACORT, AGGRENOX, NORVASC, PROAIR Height: 61" Weight: 111 LBS Target Heart Rate: 126 S-T Segment Stage Time HR BPM BP MMHG Rhythm +/- Elevation Depression Symptoms Control Sitting 56 BPM 138/70MMHG SR X NONE Dobutamine 250mg/D5W 5cmg/KG/mn 10cmg/KG/mn 3:00 59 BPM 142/68MMHG SR X NONE 15cmg/KG/mn 2:00 64 BPM SR X NONE 20cmg/KG/mn 2:00 70 BPM 132/70MMHG SR X NONE 25cmg/KG/mn 2:00 97 BPM SR X NONE 30cmg/KG/mn 2:00 102 BPM 146/70MMHG SR X NONE 35cmg/KG/mn 2:00 109 BPM 150/62MMHG SR X NONE 40cmg/KG/mn 2:18 115 BPM SR X NONE 3:00 MIN POST INFUSION z 97 BPM 132/64MMHG SR X NONE 6:00 MIN POST INFUSION z 78 BPM 130/70MMHG SR X NONE DURATION OF INFUSION 15:18 MAXIMUM HEART RATE REACHED 115 BPM 100% OXYGEN SATURATION WITH DOBUTAMINE INFUSION ON 3LPM NC Interpretation: 1. NO EVIDENCE OF ISCHEMIA BY ST-T WAVE FROM RESTING HEART RATE 56 BPM TO 115 BPM WITH DOBUTAMINE INFUSION 2. NO CHEST PAIN OR DISCOMFORT 3. NORMAL LEFT VENTRICULAR CONTRACTILITY--RESTING AND WITH DOBUTAMINE INFUSION MTDD
--- NOTE | 2018-03-21 09:14 | ECHOSTRESS ---
Date of Exam: 03/21/18 Ordering Physician: DR. GOLDIE YUNG Reason for Echo: CHEST PAIN, LEFT ARM NUMBNESS, DOBUTAMINE STRESS --NO ISCHEMIA M-Mode Normal Adult Results LV Dimensions Normal Adult Results AoV Opening excursions >1.6 LVEDD-base- 3.5-5.8 Ao root dimensions 2.0-3.7 LVESD-base- 3.1-4.6 L. Atrium dimensions 1.9-3.8 Post. Wall thickness 0.8-1.1 IV septum (thickness) 0.7-1.2 Post. Wall excursion 0.72-1.3 Septal motion Systolic motion R. Ventricular cavity 1.5-2.0 LVEF 60% Paradoxical septal wall motion 2-D: NORMAL LEFT VENTRICULAR CONTRACTILITY RESTING AND WITH DOBUTAMINE INFUSION M-MODE: MV: AV: TV: PV: CHAMBER SIZE: WALL MOTION: NORMAL LEFT VENTRICULAR CONTRACTILITY RESTING AND WITH DOBUTAMINE INFUSION PERICARDIUM: INTERPRETATION: 1. NORMAL LEFT VENTRICULAR CONTRACTILITY RESTING AND WITH DOBUTAMINE INFUSION MTDD
== END 2018-03-21 06:50 | disposition home or self-care (01) ==
LOC: CAR 06:49
PROVIDERS: ATTEND Internal Medicine
DX: R07.9 Chest pain, unspecified (principal); R20.0 Anesthesia of skin

== ENCOUNTER 2018-04-11 12:23 | Outpatient (CLI) | payer OTHER | END 2018-04-11 12:24 | disposition home or self-care (01) | LOC: RHC-LAB 12:23 | PROVIDERS: ATTEND Nurse Practitioner Family | DX: R05 Cough (principal) | CPT/HCPCS: 87502 ==

== ENCOUNTER 2018-04-29 21:55 | Emergency (ER) | payer OTHER ==
[2018-04-29 21:55] VITALS: BMI 20.9
[2018-04-29 22:03] VITALS: BP 137/76; TEMP 97.6
[2018-04-29] MEDS ORDERED: TORADOL IM STA (22:15)
--- NOTE | 2018-04-29 22:17 | ED.PDOC ---
General ED Provider: Dr. ITA CHAVEZ MD Chief Complaint: Fall Stated Complaint: my shoulder hurts Time Seen by Physician: 22:10 Mode of Arrival: Wheelchair Information Source: Patient, Family Exam Limitations: No limitations Primary Care Provider: HARESH MAI Nursing and Triage Documentation Reviewed and Agree: Yes Does patient meet sepsis criteria?: No If yes, has appropriate treatment been initiated?: Yes System Inflammatory Response Syndrome: Not Applicable Sepsis Protocol: For patient's 13 years and over: Temp is 96.8 and below OR 101 and greater Pulse >90 BPM Resp >20/minute Acutely Altered Mental Status Are patient's symptoms suggestive of a new infection, such as: -Pneumonia -Skin, Soft Tissue -Endocarditis -UTI -Bone, Joint Infection -Implantable Device -Acute Abdominal Infection -Wound Infection -Meningitis -Blood Stream Catheter Infection -Unknown Review of Systems - Review Of Systems Constitutional: Reports: No symptoms Eyes: Reports: No symptoms Ears, Nose, Mouth, Throat: Reports: No symptoms Respiratory: Reports: No symptoms Cardiac: Reports: No symptoms GI: Reports: No symptoms : Reports: No symptoms Musculoskeletal: Reports: Joint pain, Muscle pain Skin: Reports: No symptoms Neurological: Reports: No symptoms Endocrine: Reports: No symptoms Hematologic/Lymphatic: Reports: No symptoms All Other Systems: Reviewed and Negative Past Medical History - Past Medical History Previously Healthy: No Endocrine: Reports: None Cardiovascular: Reports: None Respiratory: Reports: COPD Hematological: Reports: Anemia Gastrointestinal: Reports: None Genitourinary: Reports: None Neuro/Psych: Reports: None Musculoskeletal: Reports: Arthritis, Joint Pain, Other (osteoporsis ). Denies: None Cancer: Reports: None Last Menstrual Period: hyst - Surgical History General Surgical History: Reports: Hysterectomy - Family History Family History: Reports: Unknown - Social History Smoking Status: Current some day smoker, Light tobacco smoker Hx Substance Use: No Alcohol Screening: None - Immunizations Tetanus Shot up to Date: Yes (3 yrs ago) Physical Exam - Physical Exam Appearance: Thin Ill-appearing: Mild Pain Distress: Moderate Eyes: BRADLEY, EOMI, Conjunctiva clear ENT: Ears normal, Nose normal, Oropharynx normal Neck: Supple Respiratory: Airway patent, Breath sounds clear, Breath sounds equal, Respirations nonlabored Cardiovascular: RRR, Pulses normal, No rub, No murmur GI/: Soft, Nontender, No masses, Bowel sounds normal, No Organomegaly Musculoskeletal: Limited ROM, Limited strength (left uppere shoulkder tender decreased ROM) Interpretation - Radiology Interpretation Radiology Results: Positive Xray Comments: left humeral neck fracture wit h 15% misalignment Radiology Interpretation By: ED Physician Critical Care Note - Critical Care Note Total Time (mins): 0 Course - Course Orders, Labs, Meds: Orders Category Date Time Status Ketorolac Tromethamine [Toradol] MEDS 04/29/18 22:15 Discontinued 30 mg IM ONCE STA SHOULDER, LEFT MIN 2V Stat RADS 04/29/18 22:16 Completed Medications Discontinued Medications Generic Name Dose Route Start Last Admin Trade Name Freq PRN Reason Stop Dose Admin Ketorolac Tromethamine 30 mg 04/29/18 22:15 04/29/18 22:21 Toradol IM 04/29/18 22:16 30 mg ONCE STA Administration Vital Signs: Temp Pulse Resp BP Pulse Ox 04/29/18 21:57 97.6 F 70 20 137/76 98 Departure - Departure Time of Disposition: 22:55 Disposition: HOME SELF-CARE Discharge Problem: Humeral surgical neck fracture Instructions: Arm Fracture in Adults (ED) Condition: Good Pt referred to PMD for follow-up: Yes (ORTHO, call in am) IPMP verified?: No Allergies/Adverse Reactions: Allergies tizanidine HCl [From Zanaflex] Allergy (Severe, Verified 05/03/18 09:10) hallucinates Patient will notify drugstore. PM already has been notified valacyclovir HCl [From Valtrex] Adverse Reaction (Severe, Verified 05/03/18 09: 10) Itching Altered mental status, dizziness, confusion Penicillins Adverse Reaction (Verified 05/03/18 09:10) Rash Home Medications: Ambulatory Orders Hydrocodone/Acetaminophen [[place] 7.5-325 Tablet] 1 each PO Q6HR 10/30/16 Melatonin/Pyridoxine HCl (B6) [Melatonin 10 mg Tablet] 10 mg PO BEDTIME Amlodipine Besylate [Norvasc] 5 mg PO DAILY tablet 05/06/18 Budesonide/Formoterol Fumarate [Symbicort 80-4.5 Mcg Inhaler] 2 puff IH BID inh 05/06/18 Albuterol Sulfate 0.083% Neb [Albuterol 0.083% Neb] 1 vial NEB RTQID vial.neb 05/14/18 Magnesium Oxide [Mag-Ox] 400 mg PO DAILY 90 Days #90 tablet 05/14/18 Polyethylene Glycol 3350 [Miralax] 17 gm PO DAILY 30 Days #30 powd.pack Potassium Chloride [K-Dur] 20 meq PO DAILYWM 30 Days #30 tab 05/14/18 Transfer Form Completed: No Disposition Discussed With: Patient, Family
--- NOTE | 2018-04-29 22:41 | DI ---
Exam: Left Shoulder three-view History: Fall with injury pain Findings / impression: Comminuted surgical neck fracture is present. Displacement measuring up to 6 mm. No glenohumeral dislocation.
== END 2018-04-29 23:00 | disposition home or self-care (01) ==
LOC: ED 21:55
DX: S42.212A Unspecified displaced fracture of surgical neck of left humerus, initial encounter for closed fracture (principal); W19.XXXA Unspecified fall, initial encounter
CPT/HCPCS: 96372; 99282

== ENCOUNTER 2018-05-03 09:01 | Inpatient (IN) | payer OTHER ==
[2018-05-03] MEDS ORDERED: SODIUM CHLORIDE 1,000 ML IV STA (09:26)
--- NOTE | 2018-05-03 11:16 | CT ---
Exam: CT cervical spine without intravenous contrast. Comparison: This cervical spine x-ray performed 03/16/2018. Reason for exam: Pain. FINDINGS: No acute fracture or listhesis. The vertebral body and intervertebral body disc space hei ghts are relatively well maintained. The dens appears intact. Atherosclerotic disease is seen withi n the vertebral arteries. The prevertebral soft tissues are within normal limits. Impression: 1. No acute fracture or listhesis in the cervical spine. 2. Degenerative disease with intervertebral body disc space height narrowing and osteophyte formatio n
--- NOTE | 2018-05-03 11:18 | CT ---
EXAM: CT of the head without contrast History: Head trauma. Technique: Multiplanar CT images through the head were obtained without the administration of IV con trast Findings: The visualized paranasal sinuses and mastoid air cells are clear in general. No acute soraya varial abnormalities. Intracranially, ventricular and cisternal spaces are stable. No midline shift and no hydrocephalus. No acute intracranial hemorrhage or abnormal extraaxial fluid collections. No change in the periven tricular subcortical white matter hypodensities. Impression: 1. No acute intracranial process. 2. Chronic small vessel ischemic disease
--- NOTE | 2018-05-03 11:24 | CT ---
EXAM: CT of the abdomen pelvis without contrast History: Abdominal pain and trauma. Comparison: CT abdomen pelvis 06/08/2017 Technique: Multiplanar CT images through the abdomen pelvis were obtained without the administration of IV contrast Findings: Trace right pleural effusion. Subsegmental atelectasis seen within the lower lungs. Stab le kyphoplasty and chronic compression deformity at L2. Severe disc space narrowing again seen at L5 -S1. Status post cholecystectomy. Atherosclerotic vascular calcifications. Moderate hiatal hernia again noted. No focal liver or splenic lesions. Atrophy of the pancreas. No renal stones and no hydronep hrosis. No bowel obstruction. No bladder wall thickening. Scattered colonic stool. No free air an d no ascites. No perirectal inflammation. Uterus is not seen and likely has been surgically removed . There is mild inflammation in the region of the pancreatic head and distal aspect of the stomach. Adrenal glands are unremarkable. Impression: 1. Inflammation in the region of the pancreatic head and distal aspect of the stomach. Correlate wi th pancreatic enzymes for possible pancreatitis. 2. Moderate hiatal hernia. 3. Trace right pleural effusion
--- NOTE | 2018-05-03 11:27 | CT ---
EXAM: CT of the chest without contrast History: Chest pain and chest trauma. Comparison: Chest CT 11/12/2017 Technique: Multiplanar CT images through the thorax were obtained without the administration of IV c ontrast Findings: Heart size is normal. No pericardial effusion. Coronary calcifications. Ectatic ascendi ng aorta again noted. Hiatal hernia again appreciated. No pathologically enlarged thoracic lymph no joshua. Trace right pleural effusion. Emphysema. Bronchial wall thickening again noted. Scattered ar eas of subsegmental atelectasis. No consolidated pneumonia. No suspicious lung masses or lung nodul es. For details in the upper abdomen, please see dedicated CT abdomen pelvis done on the same day. There is a severely comminuted fracture of the proximal left humerus involving the head and neck with shortening. Impression: 1. Severely comminuted fracture of the proximal left humerus. 2. No acute intrathoracic process. 3. Trace right pleural effusion. 4. Moderate hiatal hernia. 5. Coronary artery disease. 6. Emphysema
--- NOTE | 2018-05-03 11:30 | CT ---
EXAM: CT of the thoracic spine without contrast History: Thoracic back trauma. Comparison: Chest CT and abdominal CT 05/03/2018 Technique: Multiplanar CT images through the thoracic spine were obtained without the administration of IV contrast Findings: Emphysema within the lungs. Trace right pleural effusion. Coronary calcifications. Mode rate hiatal hernia. Osteopenia. Kyphoplasty with chronic compression deformity seen within the upper lumbar spine. No a cute fracture or subluxation of the thoracic spine. Mild to moderate multilevel disc space narrowing with a few small osteophytes. Impression: No acute osseous abnormality of the thoracic spine
--- NOTE | 2018-05-03 11:33 | CT ---
Exam: CT lumbar spine without intravenous contrast. Comparison CT abdomen pelvis performed 06/08/2017. Reason for exam: Fall with pain. FINDINGS: Kyphoplasty/vertebral plasty changes are seen in the L2 compression deformity not signific antly changed from previous exam. Degenerative findings in the lumbosacral spine at L5-S1 with intervertebral body disc space height na rrowing and osteophyte formation. Atherosclerotic disease is seen within the aorta and distal arteri al vasculature. There is diffuse osseous demineralization. No acute fracture or listhesis is seen. Findings appear similar to CT imaging performed on 06/08/2017. There is a moderate stool burden seen throughout the colon. T12-L1: Broad-based disc bulge with mild central canal and foraminal narrowing. L1-L2: Broad-based disc bulge with facet hypertrophy resulting in mild central canal and foraminal n arrowing. L2-L3: Broad-based disc bulge with facet hypertrophy resulting in moderate central canal and foramina l narrowing. L3-L4: Broad-based disc bulge with facet hypertrophy resulting in moderate to marked central canal a nd foraminal narrowing. L4-L5: Broad-based disc bulge with facet hypertrophy resulting in moderate to marked central canal a nd foraminal narrowing. L5-S1: Intervertebral body disc space height loss with broad-based disc bulge and facet hypertrophy resulting in mild to moderate central canal and foraminal narrowing. Impression: 1. No acute fracture or listhesis in the lumbar spine. 2. Multilevel degenerative disease not significantly changed previous imaging. 3. Similar appearing compression deformity with kyphoplasty/vertebral plasty changes
[2018-05-03] MEDS ORDERED: POTASSIUM CHLORIDE PREMIX RUN 10 MEQ in PREMIX 100 ML WATER 1 BAG IV STA (12:16)
[2018-05-03] MEDS ORDERED: POTASSIUM CHLORIDE PREMIX RUN 100 ML IV ONE (12:22)
--- NOTE | 2018-05-03 12:25 | ED.PDOC ---
General ED Provider: Dr. LUCAS PAULA Chief Complaint: Weakness Stated Complaint: WEAKNESS , ALTERED , HX FALL ON SUNDAY SUSTAINED A SHOULDER FX ON THE LEFT, WAS SEEN AT [facility] TREATED FOR THE SHOULDER FX AND RELEASED. HE FAMILY STATED THEY ARE NOT AWARE FOR HOW LONG SHE WAS ON LAYING ON THE GROUD AFTER HER FALL. PT TODAY C/O MARKED WEAKNESS AND BACK PAIN ALONG THE ENTIRE SPINE . ARRIVED HYPOTENSIVE WITH SYSTOLIC BP OF 60 BUT ALERT ABLE TO SPEAK. Time Seen by Physician: 09:00 (ENTIRE FAMILY) Mode of Arrival: Wheelchair Information Source: Patient, Family Exam Limitations: No limitations Primary Care Provider: HARESH MAI Nursing and Triage Documentation Reviewed and Agree: Yes Does patient meet sepsis criteria?: Yes (SEPSIS PARAMETERS WERE HOW EVER LOTTIE) If yes, has appropriate treatment been initiated?: No System Inflammatory Response Syndrome: Not Applicable Sepsis Protocol: For patient's 13 years and over: Temp is 96.8 and below OR 101 and greater Pulse >90 BPM Resp >20/minute Acutely Altered Mental Status Are patient's symptoms suggestive of a new infection, such as: -Pneumonia -Skin, Soft Tissue -Endocarditis -UTI -Bone, Joint Infection -Implantable Device -Acute Abdominal Infection -Wound Infection -Meningitis -Blood Stream Catheter Infection -Unknown Trauma/Injury Complaint Exam - Trauma Complaint/Exam Location of Pain or Injury: Reports: LUE (SHOULDER ) Mechanism of Injury: Reports: Fall ( ) Onset/Duration: 5 DAYS Symptoms Are: Still present Timing of Treatment: Immediate Initial Severity: Mild Current Severity: Mild Character: Reports: Aching Aggravating: Reports: Movement Alleviating: Reports: None Associated Signs and Symptoms: Reports: Extremity disuse (LEFT SHOULDER BACK PAIN ) Penetrating Injury Risk Factors: Reports: None Related Surgical History: Reports: None Nexus Low Risk Criteria: No post-midline CS tender, No evidence of intoxicat., No Altered LOC, No focal neuro deficit (SHOULDER FRACTURE LEFT) Immobilization Removed Post Exam: No Glascow Coma Scale (see protocol): 15 Compartment Syndrome Risk Factors: Absent: Pain, Paralysis, Pallor, Pulselessness, Paresthesias Trauma Findings: Present: Neck tenderness. Absent: [place] eyes, Hemotympanum, Nasal deformity, Dental tenderness, Dental injury, Dental malocclusion, Neck spasm, SubQ Air, Crepitus, Airway obstructed, Trachea displaced, Labored respirations, Decreased breath sounds, Muffled heart sounds, Weak pulses, Absent pulses, Abdominal distention, Pelvic tenderness, Pelvic instability Skin Findings: Present: Normal findings Differential Diagnoses: Fracture, Sprain, Strain Review of Systems - Review Of Systems Constitutional: Reports: Chills Eyes: Reports: No symptoms Ears, Nose, Mouth, Throat: Reports: No symptoms Respiratory: Reports: Cough Cardiac: Reports: No symptoms GI: Reports: No symptoms : Reports: No symptoms Musculoskeletal: Reports: No symptoms Skin: Reports: No symptoms Neurological: Reports: No symptoms Endocrine: Reports: No symptoms Hematologic/Lymphatic: Reports: No symptoms All Other Systems: Reviewed and Negative Past Medical History - Past Medical History Previously Healthy: No Endocrine: Reports: None Cardiovascular: Reports: None Respiratory: Reports: COPD Hematological: Reports: Anemia Gastrointestinal: Reports: None Genitourinary: Reports: None Neuro/Psych: Reports: None Musculoskeletal: Reports: Arthritis, Joint Pain, Other (osteoporsis ). Denies: None Cancer: Reports: None Last Menstrual Period: none - Surgical History General Surgical History: Reports: Hysterectomy - Family History Family History: Reports: Unknown - Social History Smoking Status: Current some day smoker, Light tobacco smoker Hx Substance Use: No Alcohol Screening: None Physical Exam - Physical Exam Appearance: Well-appearing, No pain distress, Well-nourished Eyes: BRADLEY, EOMI, Conjunctiva clear ENT: Ears normal, Nose normal, Oropharynx normal Respiratory: Airway patent, Breath sounds clear, Breath sounds equal, Respirations nonlabored Cardiovascular: RRR, Pulses normal, No rub, No murmur GI/: Soft, Nontender, No masses, Bowel sounds normal, No Organomegaly Musculoskeletal: Normal strength, ROM intact, No edema, No calf tenderness Skin: Warm, Dry, Normal color Neurological: Sensation intact, Motor intact, Reflexes intact, Cranial nerves intact, Alert, Oriented Psychiatric: Affect appropriate, Mood appropriate Interpretation - Radiology Interpretation Radiology Interpretation By: Radiologist Radiology Results: Positive (PACEREATIC LESION) - Toy Mechanic Rate: Normal Rhythm: Sinus Ectopy: None - EKG Interpretation Rhythm: Sinus Re-Evaluation - Re-Evaluation Time of Re-Evaluation: 10:00 Status: Improved Vital Signs Stable: Yes Pain Level: 0 Appearance: NAD Lungs: Clear Skin: Warm and Dry Neuro: Alert and Oriented X3 CV: RRR - Re-Evaluation Time of Re-Evaluation: 12:35 (BP AT 12:37 114/83) Status: Improved Vital Signs Stable: Yes Pain Level: 0 Appearance: NAD Skin: Warm and Dry Neuro: Alert and Oriented X3 CV: RRR Critical Care Note - Critical Care Note Total Time (mins): 120 Course - Course Hematology/Chemistry: 05/03/18 09:35 05/03/18 09:35 Orders, Labs, Meds: Lab Review 05/03/18 05/03/18 05/03/18 09:27 09:35 09:35 WBC 16.50 H RBC 2.68 L Hgb 9.5 L Hct 26.8 L MCV 100.0 H MCH 35.4 H MCHC 35.4 RDW Coeff of Lynette 11.3 L Plt Count 307 Immature Gran % (Auto) 0.8 Neut % (Auto) 83.2 Lymph % (Auto) 6.6 L [place] % (Auto) 9.1 Eos % (Auto) 0.2 Baso % (Auto) 0.1 Immature Gran # (Auto) 0.1 Neut # (Auto) 13.7 H Lymph # (Auto) 1.1 [place] # (Auto) 1.5 Eos # (Auto) 0.0 Baso # (Auto) 0.0 PT INR APTT Puncture Site Rbrach O2 Saturation 97.0 ABG pH 7.445 ABG pCO2 54.5 H ABG pO2 88.0 ABG HCO3 37.5 H ABG Total CO2 39 H ABG Base Excess 13 H O2 Delivery Device Nc Oxygen Liter Flow 3.00 Sodium 126.2 L Potassium 2.87 L Chloride 78.8 L Carbon Dioxide 40.1 H* Anion Gap 10.17 BUN 15.9 Creatinine 0.89 Estimated GFR (MDRD) 63.00 BUN/Creatinine Ratio 17.86 Glucose 107.3 H Lactic Acid Calcium 8.28 L Total Bilirubin 0.78 AST 84.8 H ALT 25.9 Alkaline Phosphatase 67.5 Total Creatine Kinase 1504.1 H CK-MB (CK-2) 13.400 H* CK-MB (CK-2) % 0.8900 Troponin I 0.023 Total Protein 5.77 L Albumin 3.09 L Globulin 2.68 Albumin/Globulin Ratio 1.15 Procalcitonin TSH 0.725 Free T4 Influ A Molecular Assay Influ B Molecular Assay 05/03/18 05/03/18 05/03/18 09:35 09:35 09:35 WBC RBC Hgb Hct MCV MCH MCHC RDW Coeff of Lynette Plt Count Immature Gran % (Auto) Neut % (Auto) Lymph % (Auto) [place] % (Auto) Eos % (Auto) Baso % (Auto) Immature Gran # (Auto) Neut # (Auto) Lymph # (Auto) [place] # (Auto) Eos # (Auto) Baso # (Auto) PT 9.7 INR 0.97 APTT 29.7 Puncture Site O2 Saturation ABG pH ABG pCO2 ABG pO2 ABG HCO3 ABG Total CO2 ABG Base Excess O2 Delivery Device Oxygen Liter Flow Sodium Potassium Chloride Carbon Dioxide Anion Gap BUN Creatinine Estimated GFR (MDRD) BUN/Creatinine Ratio Glucose Lactic Acid Calcium Total Bilirubin AST ALT Alkaline Phosphatase Total Creatine Kinase CK-MB (CK-2) CK-MB (CK-2) % Troponin I Total Protein Albumin Globulin Albumin/Globulin Ratio Procalcitonin 0.27 TSH Free T4 1.25 Influ A Molecular Assay Influ B Molecular Assay 05/03/18 05/03/18 09:35 11:25 WBC RBC Hgb Hct MCV MCH MCHC RDW Coeff of Lynette Plt Count Immature Gran % (Auto) Neut % (Auto) Lymph % (Auto) [place] % (Auto) Eos % (Auto) Baso % (Auto) Immature Gran # (Auto) Neut # (Auto) Lymph # (Auto) [place] # (Auto) Eos # (Auto) Baso # (Auto) PT INR APTT Puncture Site O2 Saturation ABG pH ABG pCO2 ABG pO2 ABG HCO3 ABG Total CO2 ABG Base Excess O2 Delivery Device Oxygen Liter Flow Sodium Potassium Chloride Carbon Dioxide Anion Gap BUN Creatinine Estimated GFR (MDRD) BUN/Creatinine Ratio Glucose Lactic Acid 1.08 Calcium Total Bilirubin AST ALT Alkaline Phosphatase Total Creatine Kinase CK-MB (CK-2) CK-MB (CK-2) % Troponin I Total Protein Albumin Globulin Albumin/Globulin Ratio Procalcitonin TSH Free T4 Influ A Molecular Assay Negative by naat Influ B Molecular Assay Negative by naat Orders Category Date Time Status ABG DRAW REQUEST Stat CARDIO 05/03/18 09:27 Completed EKG-(ED ONLY) Stat CARDIO 05/03/18 09:26 Completed ED IV/MEDIPORT/POWERPORT .ONCE EMERGENCY 05/03/18 09:26 Active ABG Stat LAB 05/03/18 09:27 Completed AMYLASE Stat LAB 05/03/18 12:18 Ordered BLOOD CULTURE Stat LAB 05/03/18 09:26 Ordered CBC W/ AUTO DIFF Stat LAB 05/03/18 09:35 Completed COMPREHENSIVE METABOLIC PANEL Stat LAB 05/03/18 09:35 Completed CREATINE KINASE Stat LAB 05/03/18 09:35 Completed FLU A/B MOLECULAR Stat LAB 05/03/18 09:35 Completed FREE T4 (FREE THYROXINE) Stat LAB 05/03/18 09:35 Completed LACTIC ACID Stat LAB 05/03/18 11:25 Completed LIPASE Stat LAB 05/03/18 12:18 Ordered PARTIAL THROMBOPLASTIN TIME Stat LAB 05/03/18 09:35 Completed PROCALCITONIN Stat LAB 05/03/18 09:35 Completed PT WITH INR Stat LAB 05/03/18 09:35 Completed THYROID STIMULATING HORMONE Stat LAB 05/03/18 09:35 Completed TROPONIN I Stat LAB 05/03/18 09:35 Completed URINALYSIS C & S IF INDICATED Stat LAB 05/03/18 09:25 Uncollected 0.9 % Sodium Chloride [Saline Flush] MEDS 05/03/18 09:26 Active 1 syr IVF PRN PRN Potassium Chloride [Potassium Chloride Premix Run] 10 MEDS 05/03/18 12:16 Ordered meq Premix 100 ml Water 1 bag IV ONCE Sodium Chloride 0.9% [Sodium Chloride] 1,000 ml MEDS 05/03/18 09:[address] ABDOMEN/PELVIS WO CONTRAST Stat RADS 05/03/18 09:[address] CERVICAL SPINE W/O CONTRAST Stat RADS 05/03/18 09:[address] CHEST W/O CONTRAST Stat RADS 05/03/18 09:[address] HEAD W/O CONTRAST Stat RADS 05/03/18 09:[address] LUMBAR SPINE W/O CONTRAST Stat RADS 05/03/18 09:[address] THORACIC SPINE W/O CONTRAST Stat RADS 05/03/18 09:34 Completed Medications Generic Name Dose Route Start Last Admin Trade Name Freq PRN Reason Stop Dose Admin Potassium Chloride 10 meq/ 100 mls @ 100 mls/hr 05/03/18 12:16 Sterile Water IV 05/03/18 13:15 ONCE STA Sodium Chloride 1 syr 05/03/18 09:26 05/03/18 09:36 Saline Flush IVF 1 syr PRN PRN Administration To flush IV Discontinued Medications Generic Name Dose Route Start Last Admin Trade Name Ramon PRN Reason Stop Dose Admin Sodium Chloride 1,000 mls @ 500 mls/hr 05/03/18 09:26 05/03/18 09:36 Sodium Chloride IV 05/03/18 11:25 500 mls/hr BOLUS STA Administration Vital Signs: Temp Pulse Resp BP Pulse Ox 05/03/18 10:19 95/45 L 05/03/18 09:01 97.6 F 106 H 22 99/61 94 L Departure - Departure Time of Disposition: 13:00 Disposition: TSF SHORT-TRM HOSP Discharge Problem: Hypokalemia, Hyponatremia Rhabdomyolysis Qualifiers: Rhabdomyolysis type: traumatic Encounter type: subsequent encounter Qualified Code(s): T79.6XXD - Traumatic ischemia of muscle, subsequent encounter Anemia Qualifiers: Anemia type: unspecified type Qualified Code(s): D64.9 - Anemia, unspecified Instructions: Anemia (ED) Condition: Good Pt referred to PMD for follow-up: Yes IPMP verified?: No Additional Instructions: Please call your Family Physician as soon as possible to schedule a follow-up appointment. Allergies/Adverse Reactions: Allergies tizanidine HCl [From Zanaflex] Allergy (Severe, Verified 05/03/18 09:10) hallucinates Patient will notify drugstore. PM already has been notified valacyclovir HCl [From Valtrex] Adverse Reaction (Severe, Verified 05/03/18 09: 10) Itching Altered mental status, dizziness, confusion Penicillins Adverse Reaction (Verified 05/03/18 09:10) Rash Home Medications: Ambulatory Orders Budesonide/Formoterol Fumarate [Symbicort 80-4.5 Mcg Inhaler] 2 puff IH BID 01/18 Hydrocodone/Acetaminophen [[place] 7.5-325 Tablet] 1 each PO TID 10/30/16 Melatonin/Pyridoxine HCl (B6) [Melatonin 10 mg Tablet] 10 mg PO BEDTIME
[2018-05-03] MEDS ORDERED: ROCEPHIN 1 GM in SODIUM CHLORIDE 50 ML IV STA (12:27)
[2018-05-03] MEDS ORDERED: ROCEPHIN ONE (12:35)
[2018-05-03] MEDS ORDERED: VANCOMYCIN 1 GM in SODIUM CHLORIDE 250 ML IV STA (13:18)
[2018-05-03] MEDS ORDERED: LEVAQUIN 500 MG in PREMIX 100 ML D5W 1 BAG IV STA (13:18)
[2018-05-03] MEDS ORDERED: K-DUR PO SCH (13:30)
[2018-05-03] MEDS ORDERED: SODIUM CHLORIDE 0.9%-KCL 20 MEQ 1,000 ML IV SCH (13:30)
[2018-05-03] MEDS ORDERED: AGGRENOX CAPSULE PO SCH (13:30)
[2018-05-03] MEDS: NORCO 7.5-325 PO SCH ×2 (14:26→21:06)
[2018-05-03 14:52] VITALS: BMI 22.1
--- NOTE | 2018-05-03 15:20 | PCM ---
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 mobility/movement. Contacted radiology 22:06 pm talked with acid polymerization operator provider. He was able to see the fracture in entirety, some stranding, no obvious hematoma, no obvious/active bleed. Hypokalemia: Fluid hydration 125ml +10meq K+ - REpeat CMP 5 - REpeat CMP in am. - Add magnesium lab 1914 - Consider stopping HCTZ, will monitor for now. Hypotension: Improved w/ bolus. Hemodynamically dry, with SG urine 1.010. Hold a few of her BP meds, namely norvasc and coreg for today. HR is stable, BP is improving. - REsume meds as needed. - Monitor overnight - I+O -telemetry - NO BP checks/draws left arm due to fracture. Anemia: Repeat CBC in am. Normal folate/b12. ER put her on iron, I do not think that this will help her considering low iron, low TIBC and high ferritin do not support Fe Def rather anemia Chronic Disease. Concern for blood loss. - Stop iron - Hemoocult with BM. Hypomagnesemia: Mild. - Mag Oxide 400mg 1 PO BID. Hyponatremia: REpeat CMP at 1915 tonight. If <130 I will give 10ml of 3% NS and repeat serum sodium in 2 hours. Her SG in urine was 1.010 and quite dilute but would like to see <1.050. Goal is increase by 4-6meQ/L in a few hours. We may repeat the bolus as well. I will have nurses call me with the sodium at 19:15. I will likely be back at hospital soon after. - Repeat CMP 1915 tonight. Pseudohypocalcemia: Ca2+ 8.02, albumin 3.09 and calcium corrected to 8.7. This was repeated again and calcium and albumin dropped to 7.9/2.97 respectively. - Continue to monitor, corrects to normal. Diet: Regular DVT PROPHY: SUSHIL/SCD. She is on aggrenox, i will continue this for now. Monitor CBC> Pain: [place] TID daily 7.5mg/325mg. Code status: DNR Discussed with family and they are aware of this decision, patient vocalized this as well. Disposition: I will continue to fluid hydrate, replace electrolyte issues and work to reduce the CK/CKMB and improve the sodium, my main 2 endpoints. I would like her sodium to be in the 130 range in the am. As of 22:10 I did order 100cc of 3% NS with repeat sodium in 1 hour. CMP again 06:00 05/04/18. Mg was a little low w/ labs 19:15 and we will replace this with mag oxide 400 mg 1 PO BID. She remains stable on tele, BP Remains >100 SBP. She appears to have improved regarding vital. Repeat CBC 22:00 showed drop of WBC/HgB/Plt. Hgb now 8.8. >70 minutes spent admitting this patient. She meets inpatient criteria.
[2018-05-03] MEDS ORDERED: ASTELIN 0.1% NAS SCH (17:00)
[2018-05-03] MEDS: DUONEB NEB SCH ×2 (17:05→23:25)
[2018-05-03] MEDS: PROTONIX PO SCH (17:10)
[2018-05-03] MEDS: SPIRIVA IH SCH (17:13)
[2018-05-03] MEDS ORDERED: COREG PO SCH (17:30)
[2018-05-03] MEDS: IPRATROPIUM BROMIDE 0.06% NS SCH ×2 (18:44→21:13)
[2018-05-03] MEDS: SOLU-MEDROL 40 MG IVP SCH (20:41)
[2018-05-03] MEDS ORDERED: NORVASC PO SCH (21:00)
[2018-05-03] MEDS ORDERED: GABAPENTIN PO SCH (21:00)
[2018-05-03] MEDS ORDERED: FERROUS SULFATE PO SCH (21:00)
[2018-05-03] MEDS ORDERED: NON-FORMULARY MEDICATION (Ferrous Sulfate [Iron] 325 MG) PO SCH (21:00)
[2018-05-03] MEDS: NEURONTIN PO SCH (21:06)
[2018-05-03] MEDS: SYMBICORT 80-4.5 MCG INHALER IH SCH (21:07)
[2018-05-03] MEDS: AGGRENOX CAPSULE PO SCH (21:12)
[2018-05-03] MEDS: ASTELIN 0.1% NAS SCH (21:13)
[2018-05-03] MEDS: MELATONIN PO SCH (21:13)
[2018-05-03] MEDS: PYRIDOXINE HCL PO SCH (21:13)
[2018-05-03] MEDS ORDERED: SODIUM CHLORIDE 3% 100 ML IV ONE (21:54)
[2018-05-03] MEDS: MAG-OX PO SCH (22:08)
[2018-05-03] MEDS: SODIUM CHLORIDE 0.9%-KCL 20 MEQ 1,000 ML IV SCH (22:40)
[2018-05-04] MEDS: SODIUM CHLORIDE 0.9%-KCL 20 MEQ 1,000 ML IV SCH ×3 (03:03→19:23)
[2018-05-04] MEDS: DUONEB NEB SCH ×4 (05:00→23:30)
[2018-05-04] MEDS: PROTONIX PO SCH ×2 (05:53→17:20)
--- NOTE | 2018-05-04 08:42 | PCM.PROG ---
Subjective: 72 yo WF HD #2 Room SCU2-2 seen by me at 08:15 05/04/18. Patient is awake eating breakfast and c/o poor taste, wants more salt. Discussed with her limitations to salt, BP has come up nicely now at 146/74. I asked her if she has had any Ms. Dash historically and she noted she had not. I added some of this to her food at her request from a packet (can help K+) and she noted that it enhanced the flavor and was pleased with the suggestion. REviewed overnight tele and she was mostly SR with some PVC/PAC. She has had a good diuresis, good Uout w/ 2 unmeasured voids yesterday and 1360 out measured today. Pain at a 6/10 now aching throbbing and worse with any movement in the left lateral/anterior upper arm. REviewed ON nurses notes, mostly uneventful night. She was given 3% NS at my direction over 15 minutes and her sodium improved from 126.5 to 130.8 as hoped. I repeated a CBC last night and her WBC dropped from 16.5 to 11.56 her Hgb dropped from 9.5 to 8.8 and plt dropped 307 to 265 suggestive of dilutional effect. This am her CBC showed 11.9 WBC (16.5 admit), Hgb 8.5 (9.5 admit) plt 297 (307 admit). CMP this am sodium is now up to 131, K+ is up to 3.07, BUN 7, Cr 0.50 and her calcium is stable at 8.03. Based on albumin, this continues to correct to normal. CKMB has steadily declind from 11.7 to 9.2 to 6.620 this am. CK total started at 1504 increased to 2306, increased further to 2423 before dropping to 1472 this am. Will check again at 1pm with CBC/CMP/UA/ magnesium. She had some discomfort with the 3% NS, no c/o with the K+ in the fluid. She is getting K+ in fluid and PO. She is getting Mg++ PO. BP has perked up, tele looks good, she is eating and generally feels better this am. She and I talked about home status and that likely she was dehydrated/ malnourished over last 1 week and this is likely the culprit. I have recommended to nurses, after discussing case with them this am, we will resume norvasc if BP >150/90. Goal for today is to keep her 120-150 SBP. DBP was in low 70's and fine. Reviewed available ON notes, she has minimal c/o this am except arm pain. Appetite is better, breathing is stable, not interested in tobacco despite prolonged multiple year/decade smoking history. Not interested in tobacco cessation aids at this time. SCD in place. Still using aggrenox. No BM so far. She has dropped about 1 G of Hgb suggestive of dilution. No worsening SOA. Vitals reviewed with her this am, remains afebrile, BP is better , HR is stable, O2 is stable and RR is stable. Suspect if she continues to improve, tolerate PO we may d/c tomorrow. REVIEW OF SYMPTOMS: (Positives bolded) General: weight loss, fever, chills, night sweats, fatigue, appetite loss HEENT: blurry vision, eye pain, eye discharge, dry eyes, decreased vision, sore throat tinnitus, bloody nose, hearing loss, sinus pain/pressure, ear pain/ pressure. Respiratory: shortness of breath (CHRONIC/STABLE), cough (CHRONIC/STABLE), hemoptysis, wheezing, pleurisy, Cardiovascular: chest pain, PND, palpitation, edema, orthopnea, syncope, swelling of extremities Gastro: Nausea, vomiting, diarrhea, hematemesis, abdominal pain, constipation Genito: hematuria, dysuria, glycosuria, hesitancy, frequency, incontinence [place]: Arthralgia, myalgia, muscle weakness, joint swelling, Skin: rash, pruritis, sores, nail changes, skin thickening, change in wart/mole , itching, rash, new lesions, pruritus, nail changes Neuro: Migraine, numbness, ataxia, tremor, vertigo, weakness LUE, memory loss, Irritability, dizziness Endocrine: excessive thirst, polyuria, cold intolerance, heat intolerance, goiter Psychiatric: depression, anxiety, anti-depressants, alcohol abuse, drug abuse, insomnia, change in sleep pattern and mood changes NO SI/HI Heme/lymph: bruising, bleeding gums, blood clots, swollen glands, lymphedema, Allergic/immune: allergic rhinitis, hay fever, asthma, hives Objective: Vital Signs - 24 hr 03/03/2305/03/18 05/03/18 09:01 10:19 13:46 Temperature 97.6 F 98.2 F Pulse Rate 106 H 71 Respiratory 22 16 Rate Blood Pressure 99/61 95/45 L O2 Sat by Pulse 94 L 98 Oximetry 05/03/18 05/03/18 05/03/18 20:56 22:00 22:16 Temperature 99.1 F 98.7 F 98.2 F Pulse Rate 81 81 71 Respiratory 18 18 16 Rate Blood Pressure 117/73 121/69 95/45 L O2 Sat by Pulse 98 98 98 Oximetry 05/04/18 05:51 Temperature 98.9 F Pulse Rate 87 Respiratory 18 Rate Blood Pressure 146/74 H O2 Sat by Pulse 100 Oximetry Constitutional: Appearance-No acute distress, Consistent with stated age. Orientation- Oriented x 3, alert Build and Nutrition-[normal] General- Patient is pleasant and cooperative with the interview and exam. Integumentary: General-No rashes, ulcers or lesions. Palpation- Normal skin moisture/turgor. Skin is warm to touch, appropriate. Capillary refill is normal bilateral Upper and lower extremity. ENMT: Pinna- normal without tenderness or erythema. External auditory canal Left- normal without erythema or discharge, no excessive cerumen. External auditory canal Right-normal without erythema or discharge, no excessive cerumen. TM left- Yañez/pearly, normal light reflex and anatomy TM Right- Yañez/ pearly, normal light reflex and anatomy Hearing Assessment-normal to conversational speech. Nose and sinus- No sinus tenderness along frontal/ maxillary region. External appearance normal and midline. Nares- bilateral quiet airflow, no discharge. Nasal mucosa- No bleeding noted and no ulcerations observed. [place], moist. Turbinates non boggy. Lips- normal color, moist without cracks/lesions Oral Cavity/Palate- hard/soft palate intact without lesions, oral mucosa pink and moist. Dentures, Tongue normal midline. Oropharynx- no pharyngeal erythema, Uvula midline. No post nasal drip. No exudate. Salivary glands- Non tender to palpation CHEST/LUNG: Inspection- symmetric chest wall no pectus deformity. Normal effort , no distress, no use of accessory muscles. Palpation- nontender sternum, ribline. Ecchymosis along anterior chest and mostly along left pectoralis region, AC joint, lateral arm. Auscultation- Breath sounds decreased/coarse but appear to be baseline throughout all lung tobin. tracheal sounds, bronchial sounds overlying sternum, Bronchovessicular sounds between scapulae posteriorly , vessicular breath sounds heard throughout periphery are stable and more clear than they have been over last few visits. Adventitious sounds- Scattered wheezes , No rales, Scattered rhonchi. No accessory muscle use, no distress. Tolerating O2 NC. CARDIOVASCULAR: Carotid artery- normal, no bruits or abnormal pulsations. Jugular vein- no pulsations. Palpation/Percussion- Normal PMI, no palpable thrill Auscultation- Regular rate and rhythm. Distant sounds, III/ murmur left sternal border noted in sitting, supine positions. This does radiate into axilla and carotid region. Extremities- no cyanosis, no edema, no increased warmth of extremities ABDOMEN: Inspection- normal and no visible pulsations. Normal contour. Auscultation- Bowel sounds normal, no abdominal bruits. Palpation/Percussion- soft, non-tender, no rebound tenderness, no rigidity (guarding), no jar tenderness, no masses. Liver-no hepatomegaly, Spleen no splenomegaly, Hernias - none. Rectal not examined. Peripheral Vascular: Upper extremity Left- Normal temperature with pink nailbeds and no ulcerations. Upper extremity Right- Normal temperature with pink nailbeds and no ulcerations. Lower extremity- Normal temperature with pink nailbeds and no ulcerations. DP pulses 2+ bilaterally. Onychomycosis, nail hypertrophy is present. Pedal hair reduced but intact. Normal capillary refill. Edema- No edema. Musculoskeletal: Generalized-No generalized swelling or edema of extremities, no digital clubbing or cyanosis, neurovascularly intact all four extremities. Upper extremity- UNCHANGED FROM 05/03/18. Symmetrical posture. Left arm inside of shoulder sling else no visible deformity. Prominent ecchymoses along the anterior shoulder, superior shoulder, lateral shoulder, left lateral pectoral region. Tender along AC joint, along upper humerus and down to elbow. She has no pain at lateral/medial epicondyle. Normal sensation along medial and lateral upper extremity proximally and distally. No E/O compartment syndrome. NO tenderness overlying right shoulder, chest on the right side. As noted no tenderness bilateral lateral/medial epicondyle. Nutrition Aides Teacher 5/5 and strength 5/5 bilateral UE. Elbow palpated, no tenderness overlying olecranon bilat. Normal supination, pronation to active/passive ROM on right, she would not do this on left ?aprehension. Bicep insertion/tricep insertion appear normal without obvious pathology on right, tender on left and guarding is present. [place] fracture of the left shoulder. Unchanged from exam yesterday, she is using fork to eat this am in her left hand. Having to forward flex some to get arm up onto tray. . Lower extremity- Hip: Not tender to palpation, no pain, no swelling, edema or erythema of surrounding tissue, normal strength and tone. Normal appearing hip ROM bilaterally without pain. Knee: Knee ROM normal. No tenderness overlying trochanters, no tenderness about patella, quad tendon, patellar tendon. Spine/Ribs- No deformities, masses or tenderness, no known fractures, normal strength, Normal ROM. Normal stability No tenderness along C/T/L spine. Normal appearing ROM about spine. Neurological: General- Moves all 4 extremities, LUE is currently in sling. Symmetrical face and body posture. Cranial nerves- individually evaluated II- XII and intact. PERRLA, Normal EOMI, visual/special senses appear intact, Face is symmetrical and normal sensation/movement, normal tongue, normal strength/ posture of neck musculature. Reflexes- intact with DTR 2+ patellar, Achilles, bicep, brachial, tricep. Ankle clonus normal with 2 beats. Strength- 5/5 bilateral UE and LE. Soft touch- intact bilateral UE and LE. Temperature sensation- intact bilateral UE and LE. Neuropsych: Oriented- Person, place, time. (AAOx3), Mood/affect- normal and congruent. Able to articulate well. Speech-Normal speech, normal rate, normal tone, normal use of language, volume and coherence. Thought content- BETTER TODAY. NOW ABLE TO perform basic computations and apply abstract thought/ reason. Associations- intact, no SI/HI, no hallucinations, delusions, obsessions. Judgment/insight- Appropriate. Memory-Recall intact, remote and recent memory intact. Knowledge- Age appropriate fund of knowledge, concentration and attention span normal. Lymphatic: Head/Neck- normal size and non tender to palpation. Axillary- normal size and non tender to palpation. Femoral and Inguinal- normal size and non tender to palpation. Laboratory Last Values WBC 11.90 K/ul (4.6-10.2) H 05/04/18 03:25 RBC 2.40 10^6/ul (4.20-5.40) L 05/04/18 03:25 Hgb 8.5 g/dl (12.0-16.0) L 05/04/18 03:25 Hct 24.1 % (37.0-47.0) L 05/04/18 03:25 MCV 100.4 fl (81.0-99.0) H 05/04/18 03:25 MCH 35.4 pg (27.0-31.0) H 05/04/18 03:25 MCHC 35.3 (31.8-35.4) 05/04/18 03:25 RDW Coeff of Lynette 11.4 % (11.6-14.8) L 05/04/18 03:25 Plt Count 297 10^3/uL (140-440) 05/04/18 03:25 Immature Gran % (Auto) 0.6 % (0.0-5.0) 05/04/18 03:25 Neut % (Auto) 94.6 05/04/18 03:25 Lymph % (Auto) 2.9 (10.0-50.0) L 05/04/18 03:25 Sharkey % (Auto) 1.8 (0-10) 05/04/18 03:25 Eos % (Auto) 0.0 % (0.0-7.0) 05/04/18 03:25 Baso % (Auto) 0.1 % (0.0-3.0) 05/04/18 03:25 Reticulocyte % (Auto) 2.45 % 05/03/18 09:35 Immature Gran # (Auto) 0.1 (0.0-1.0) 05/04/18 03:25 Neut # (Auto) 11.3 K/ul (2.0-6.9) H 05/04/18 03:25 Lymph # (Auto) 0.3 K/uL (0.60-3.4) L 05/04/18 03:25 Sharkey # (Auto) 0.2 K/uL (0.4-2.0) L 05/04/18 03:25 Eos # (Auto) 0.0 K/ul (0.0-0.7) 05/04/18 03:25 Baso # (Auto) 0.0 K/uL (0-0.2) 05/04/18 03:25 Absolute Retic 0.0671 05/03/18 09:35 Retic Hgb Equivalent 37.6 05/03/18 09:35 PT 9.7 SEC (9.3-11.0) 05/03/18 09:35 INR 0.97 SI (0.0-3.9) 05/03/18 09:35 APTT 29.7 SEC (23.9-40.0) 05/03/18 09:35 Puncture Site Rbrach 05/03/18 09:27 O2 Saturation 97.0 % (95-100) 05/03/18 09:27 ABG pH 7.445 (7.35-7.45) 05/03/18 09:27 ABG pCO2 54.5 mmHg (35-45) H 05/03/18 09:27 ABG pO2 88.0 mmHg (85-100) 05/03/18 09:27 ABG HCO3 37.5 (22.0-26.0) H 05/03/18 09:27 ABG Total CO2 39 (22.0-28.0) H 05/03/18 09:27 ABG Base Excess 13 (-2.0-2.0) H 05/03/18 09:27 O2 Delivery Device Nc 05/03/18 09:27 Oxygen Liter Flow 3.00 05/03/18 09:27 Sodium 131.0 mmol/L (134.5-145) L 05/04/18 03:25 Potassium 3.07 mmol/L (3.5-5.1) L 05/04/18 03:25 Chloride 88.8 mmol/L (98-107) L 05/04/18 03:25 Carbon Dioxide 37.0 mmol/L (22-30.0) H 05/04/18 03:25 Anion Gap 8.27 05/04/18 03:25 BUN 7.0 mg/dL (7-17) 05/04/18 03:25 Creatinine 0.50 mg/dL (0.60-1.30) L 05/04/18 03:25 Estimated GFR (MDRD) 122.00 mL/min 05/04/18 03:25 BUN/Creatinine Ratio 14.00 05/04/18 03:25 Glucose 154.7 mg/dL (74-106) H D 05/04/18 03:25 Lactic Acid 1.08 mmol/L (0.7-2.1) 05/03/18 11:25 Calcium 8.03 mg/dL (8.4-10.2) L 05/04/18 03:25 Magnesium 1.59 mg/dL (1.6-2.3) L 05/03/18 19:40 Iron 30.2 ug/dL (37-170) L 05/03/18 09:35 TIBC 169 ug/dL (261-497) L 05/03/18 09:35 % Saturation 18 % 05/03/18 09:35 Transferrin 118 mg/dL (200-370) L 05/03/18 09:35 Ferritin 985.00 ng/mL (11.1-264.0) H 05/03/18 09:35 Total Bilirubin 0.33 mg/dL (0.2-1.3) 05/04/18 03:25 AST 91.1 U/L (14-36) H 05/04/18 03:25 ALT 28.4 U/L (0-35) 05/04/18 03:25 Alkaline Phosphatase 62.0 U/L (53-141) 05/04/18 03:25 Total Creatine Kinase 1472.9 U/L (30-135) H 05/04/18 06:00 CK-MB (CK-2) 6.620 ng/ml (0.0-2.38) H* 05/04/18 06:00 CK-MB (CK-2) % 0.4400 05/04/18 06:00 Troponin I 0.014 ng/ml (0.0000-0.120) 05/04/18 03:25 Total Protein 5.68 g/dL (6.3-8.2) L 05/04/18 03:25 Albumin 3.02 g/dL (3.5-5.0) L 05/04/18 03:25 Globulin 2.66 05/04/18 03:25 Albumin/Globulin Ratio 1.13 05/04/18 03:25 Amylase 37.7 U/L (30-110) 05/03/18 10:00 Lipase 29.3 U/L (23-300) 05/03/18 10:00 Vitamin B12 973 pg/mL (239-931) H 05/03/18 09:35 Folate 5.29 ng/mL (2.76-) 05/03/18 09:35 Procalcitonin 0.27 ng/mL (0.09) 05/03/18 09:35 TSH 0.725 uIU/L (0.465-4.68) 05/03/18 09:35 Free T4 1.25 ng/dL (0.78-2.19) 05/03/18 09:35 Urine Color Yellow (YELLOW) 05/03/18 13:00 Urine Clarity Clear (CLEAR) 05/03/18 13:00 Urine pH 6.0 (5-9) 05/03/18 13:00 Ur Specific [place] 1.010 (1.005-1.030) 05/03/18 13:00 Urine Protein Negative (NEGATIVE) 05/03/18 13:00 Urine Glucose (UA) Negative (NEGATIVE) 05/03/18 13:00 Urine Ketones Negative (NEGATIVE) 05/03/18 13:00 Urine Blood Trace-intact (NEGATIVE) 05/03/18 13:00 Urine Nitrite Negative (NEGATIVE) 05/03/18 13:00 Urine Bilirubin Negative (NEGATIVE) 05/03/18 13:00 Urine Urobilinogen 0.2 (0.2) 05/03/18 13:00 Ur Leukocyte Esterase 1+ (NEGATIVE) 05/03/18 13:00 Urine Microscopic RBC 0-2 (0-2) 05/03/18 13:00 Urine Microscopic WBC 30-50 (0-2) 05/03/18 13:00 Ur Squamous Epith Cells 5-10 (0-5) 05/03/18 13:00 Influ A Molecular Assay Negative by naat (NEGATIVE) 05/03/18 09:35 Influ B Molecular Assay Negative by naat (NEGATIVE) 05/03/18 09:35 Na/K Trends 05/03/18 05/03/18 05/03/18 Range/Units 09:35 16:04 19:40 Sodium 126.2 L 127.4 L 126.5 L (134.5-145) mmol/L Potassium 2.87 L 2.90 L 2.97 L (3.5-5.1) mmol/L 05/03/18 05/04/18 Range/Units 23:20 03:25 Sodium 130.8 L 131.0 L (134.5-145) mmol/L Potassium 3.07 L (3.5-5.1) mmol/L CPK/Troponin I Trends 05/03/18 05/03/18 05/04/18 Range/Units 09:35 19:40 03:25 Total Creatine Kinase 1504.1 H 2306.0 H 2423.3 H (30-135) U/L CK-MB (CK-2) 13.400 H* 11.700 H* 9.230 H* (0.0-2.38) ng/ml CK-MB (CK-2) % 0.8900 0.5000 0.3800 Troponin I 0.023 0.019 0.014 (0.0000-0.120) ng/ml 05/04/18 Range/Units 06:00 Total Creatine Kinase 1472.9 H (30-135) U/L CK-MB (CK-2) 6.620 H* (0.0-2.38) ng/ml CK-MB (CK-2) % 0.4400 Troponin I (0.0000-0.120) ng/ml No additional imaging at this time. (1) Rhabdomyolysis Status: Acute Code(s): M62.82 - RHABDOMYOLYSIS SNOMED Code(s): 617769317 (2) Elevated CK-MB level Status: Acute Code(s): R74.8 - ABNORMAL LEVELS OF OTHER SERUM ENZYMES SNOMED Code(s): 904608098 (3) Hypocalcemia Status: Acute Code(s): E83.51 - HYPOCALCEMIA SNOMED Code(s): 3118822 (4) Anemia Status: Acute Code(s): D64.9 - ANEMIA, UNSPECIFIED SNOMED Code(s): 979172139 (5) Hypokalemia Status: Acute Code(s): E87.6 - HYPOKALEMIA SNOMED Code(s): 94210303 (6) Hyponatremia Status: Acute Code(s): E87.1 - HYPO-OSMOLALITY AND HYPONATREMIA SNOMED Code( s): 70948359 (7) Humeral surgical neck fracture Status: Acute Code(s): S42.213A - UNSP DISP FX OF SURGICAL NECK OF UNSP HUMERUS, INIT SNOMED Code(s): 353344835 (8) Dehydration Status: Inactive Code(s): E86.0 - DEHYDRATION SNOMED Code(s): 83428290 (9) Hypomagnesemia Status: Acute Code(s): E83.42 - HYPOMAGNESEMIA SNOMED Code(s): 291269078 Plan: Metabolic encephalopathy: Markedly improved, conversant and able to simple math/ spell/remember/recall better than yesterday. BP is better, sodium is better, K+ is better. We will repeat labs this pm at 1300 and continue fluid hydration. I will keep fluids at 125 ml/hour for now. Maintenance of 93ml/hour is typical for her weight. Dehydration/Malnourshied status are improving, electrolyte abnl are improving. Anemia has worsened likely from dilution. Still no BM. This problem of confusion appears to be resolved. GCS 15 now. - CBC/CMP/UA/Mg++ this pm 1300 Rhabdomyolysis/Elevated CK/CKMB: Worsened but now markedly improved down to 1472and CKMB 6.620. Continue Fluid hydration, Repeat levels 1300 today and again in am tomorrow - Continue inpatient status - Fluid replacement 125ml/hour + K+ per orders - CKMB 1300 today and 0600 tomorrow - Electrolyte replacement as needed - telemetry - Strict I+O Humerus Fracture: Limit mobility/movement. No addtional imaging at this time. no obvious hematoma, no obvious/active bleed. F/u ortho as Outpatient Hypokalemia: Fluid hydration 125ml +10meq K+. This is back above 3.0 now. We will continue to utilize oral/IV today. - REpeat CMP 1300 - REpeat CMP in am 05/05/18 - Monitor mg++, continue oral replacement - Still Consider stopping HCTZ, will monitor for now. Hypotension: Stable/resolved. BP 146/74. Will monitor. If >150 resume norvasc and then consider 1/2 dose coreg. - REsume meds as needed. - Monitor - I+O -telemetry - NO BP checks/draws left arm due to fracture. Anemia: Repeat CBC 1300 and again tomorrow in am. Normal folate/b12. ER put her on iron, I stopped this with elevated ferritin and Low TIBC. I do not think that this will help her considering low iron, may constipate her, may increase risks of blood in bowel and thus not needed. Suspect anemia Chronic Disease. Concern for blood loss. - Continue to hold iron PO - Hemoocult with BM. Hypomagnesemia: Mild, replacing. REpeat 1300 today - Mag Oxide 400mg 1 PO BID. - Mg++ 1300 today Hyponatremia: REsolving. She is now at 131 and roughly to baseline. She is perked up, feels better. 1300 CMP today, tomorrow am as well - Repeat CMP 1300 - Repeat CMP am 05/05/18. Pseudohypocalcemia: Ca2+ 8.03, albumin 3.02 and calcium corrected to 8.7. This has been present/unchanged since admit. I will not give calcium for now as this appears to be stable/corrected. - Continue to monitor, corrects to normal. Transaminitis: Elevated AST without ALT. CT scan abd suggested fullness in pancreas. Unknown etiology, joseph/lip normal. No c/o abd pain this am. Eating sausage/eggs. -Monitor. - CMP 1300 - CMP 0600 05/05/18 Diet: Regular DVT PROPHY: SUSHIL/SCD. She is on aggrenox, i will continue this for now. Monitor CBC> Pain: [place] TID daily 7.5mg/325mg to continue. R/B/A d/w patient. Code status: DNR Disposition: I will continue to fluid hydrate, replace electrolyte issues and work to reduce the CK/CKMB and to maintain the sodium, mg++, K+. Sodium has met my initial endpoint of >130. She did get a single 15 minute run of 100cc of 3% NS with repeat sodium in 1 hour improving. CMP this am looked markedly better. Mg replaced. K+ being replaced. She remains stable on tele, BP now trending up again. Resume norvasc 5mg daily if >150/90. Goal keep BP 120-150/ 70-90. She appears to have improved regarding vitals/tele/mood. Encephalopathy seems to be better. She has no new bruising. Pain is reasonably controlled with norco TID. She is tolerating breakfast, good uout. No BM so far. Hgb now 8.5. Monitor >35 minutes spent rounding on this patient. She continues to meet inpatient criteria with admission to [facility].
[2018-05-04] MEDS: SPIRIVA IH SCH (10:07)
[2018-05-04] MEDS: FLONASE NAS SCH (10:07)
[2018-05-04] MEDS: SYMBICORT 80-4.5 MCG INHALER IH SCH ×2 (10:07→20:59)
[2018-05-04] MEDS: AGGRENOX CAPSULE PO SCH ×2 (10:08→21:00)
[2018-05-04] MEDS: K-DUR PO SCH ×2 (10:08→17:21)
[2018-05-04] MEDS: NEURONTIN PO SCH ×2 (10:08→21:01)
[2018-05-04] MEDS: REQUIP PO SCH (10:08)
[2018-05-04] MEDS: NORCO 7.5-325 PO SCH ×3 (10:08→21:01)
[2018-05-04] MEDS: HYZAAR 50-12.5 MG TAB PO SCH (10:08)
[2018-05-04] MEDS: MAG-OX PO SCH ×2 (10:08→21:01)
[2018-05-04] MEDS: IPRATROPIUM BROMIDE 0.06% NS SCH ×3 (10:09→21:12)
[2018-05-04] MEDS: SOLU-MEDROL 40 MG IVP SCH ×2 (10:09→21:00)
[2018-05-04] MEDS: ASTELIN 0.1% NAS SCH ×2 (10:16→21:00)
[2018-05-04] MEDS: NORVASC PO SCH (10:24)
[2018-05-04] MEDS ORDERED: SODIUM CHLORIDE 0.9%-KCL 20 MEQ 1,000 ML IV SCH (18:30)
[2018-05-04] MEDS: PYRIDOXINE HCL PO SCH (21:13)
[2018-05-04] MEDS: MELATONIN PO SCH (21:13)
[2018-05-05] MEDS: DUONEB NEB SCH ×4 (04:40→23:20)
[2018-05-05] MEDS: PROTONIX PO SCH ×2 (05:56→17:02)
[2018-05-05] MEDS: FLONASE NAS SCH (08:28)
[2018-05-05] MEDS: SODIUM CHLORIDE 0.9%-KCL 20 MEQ 1,000 ML IV SCH ×2 (08:28→10:53)
[2018-05-05] MEDS: SYMBICORT 80-4.5 MCG INHALER IH SCH ×2 (08:29→20:15)
[2018-05-05] MEDS: ASTELIN 0.1% NAS SCH ×2 (08:29→20:15)
[2018-05-05] MEDS: NEURONTIN PO SCH ×2 (08:30→20:15)
[2018-05-05] MEDS: HYZAAR 50-12.5 MG TAB PO SCH (08:31)
[2018-05-05] MEDS: K-DUR PO SCH ×2 (08:31→17:02)
[2018-05-05] MEDS: AGGRENOX CAPSULE PO SCH ×2 (08:31→20:15)
[2018-05-05] MEDS: REQUIP PO SCH (08:31)
[2018-05-05] MEDS: MAG-OX PO SCH ×2 (08:31→20:15)
[2018-05-05] MEDS: NORCO 7.5-325 PO SCH ×3 (08:32→20:15)
[2018-05-05] MEDS: SOLU-MEDROL 40 MG IVP SCH (08:32)
[2018-05-05] MEDS: NORVASC PO SCH (08:55)
[2018-05-05] MEDS: IPRATROPIUM BROMIDE 0.06% NS SCH ×3 (08:55→20:16)
[2018-05-05] MEDS: SPIRIVA IH SCH (09:16)
--- NOTE | 2018-05-05 10:00 | PCM.PROG ---
Subjective: 72 yo WF HD 3 admitted for 1 week post fall, fracture of neck of humerus, dehydration, rhabdomyelysis, hypokalemia, hyponatremia, hypocalcemia, hypomagnesemia, anemia, leukocytosis, elevated AST, chronic COPD and ?change on CT abdomen. She has been on NS + K at 125ml/hour up until 184105/04/18 when I changed this to 75ml/hour. Received call at 18:13 last night that patient hgb dropped to 7.9. It had steadily decreased with fluid hydration and dropped low as did the BUN suggesting overhydration. I backed fluids down and checked labs again today. WBC back up to 16.86, hgb from 7.9 to 9.5 plt up to 366. With dilutional effect resolved, the Blood work returned to near admit levels. I talked with nurse this am, it appeared that she had demargination. She did have #2 emesis after OJ in am yesterday, pt noting that she she responds to OJ like this. I discussed no more OJ while in hospital, they noted that this was reasonable. Nurse Linda also noted that patient was on steroids and asked if that could affect this, I noted it could, was pleased with comment and then I discussed with team to d/c the steroids. Urine culture so far normal shanti/ mixed, no acute process. Emesis x 2 yesterday, no further emesis. No BM while in hospital. She has had 2810 ml out yesterday, 5 voides. Weight is stable. CK bumped back up from 1472.9 to 1584.8 yesterday and is now back to 1573.4. CK MB has continued to decrease throughout stay. AST improved and has decreased from 91.1 to 76.5 to 71.4. Albumin is back up to 3.56. Calcium has normalized to 8.77 (correction levels). Mg remains low at 1.59 but correcting orally. SG on urine recently 1.020 with small glucose. Her glucose has been up a little thrhoug stay but <200 and I will thus not use medications at this point. She has continued to do fine sans coreg/norvasc. She has had some PVC on tele but remains SR. I discussed we may drop her coreg to 3.125 1/2 tablet BID. I will resume this today. Her CMP this am showed improvement in sodium from 130.7 to 131.8 and this is now normal. Her K+ is at 3.96 and much better by >1.0 since admit. Her BUN i slow at 2.2 and cr 0.48. Glucose 139.8 now. Overall this am she feels fine. We had a lengthy talk about disposition noted SNF vs Swing status in our hospital. I talked with patient w/ nurse Linda patel and talked with Radha Johnson over phone in room. Complete conversation about this process, about care, about patient health this am >20 minutes. Combined with evaluation of labs/discussion with patient/nursing, we spent >35 minutes face to face this am. Patient is eating, does not like taste of food. We have stopped the steroids, I will have no further blood draw today , see labs in am tomorrow and discuss disposition further. Discussed case with family and feel that swing is likely best option. She still rates her pain in left arm at 5-7/10. Bruising is resolving and worse. She has been OOB several times to use restroom. Discussed I want her out of bed as much as possible. SCD /SUSHIL in place, heel padding in place. Rolling regularly. No S/SX of infection. Lab parameters are improving and I think one more day to repeat CK/CKMB tomorrow would be good option. With her fracture/muscle damage this may be a prolonged course. With her not being a surgical candidate I believe that a SNF/ Swing would be a good choice for her. REVIEW OF SYMPTOMS: (Positives bolded) Essentially unchanged 05/04/18. General: weight loss, fever, chills, night sweats, fatigue, appetite loss ( BETTER) HEENT: blurry vision, eye pain, eye discharge, dry eyes, decreased vision, sore throat tinnitus, bloody nose, hearing loss, sinus pain/pressure, ear pain/ pressure. Respiratory: shortness of breath (CHRONIC/STABLE), cough (CHRONIC/STABLE), hemoptysis, wheezing, pleurisy, Cardiovascular: chest pain, PND, palpitation, edema, orthopnea, syncope, swelling of extremities Gastro: Nausea, vomiting, diarrhea, hematemesis, abdominal pain, constipation Genito: hematuria, dysuria, glycosuria, hesitancy, frequency, incontinence [place]: Arthralgia, myalgia, muscle weakness, joint swelling, LUE Skin: rash, pruritis, sores, nail changes, skin thickening, change in wart/mole , itching, rash, new lesions, pruritus, nail changes Neuro: Migraine, numbness, ataxia, tremor, vertigo, weakness LUE, memory loss, Irritability, dizziness Endocrine: excessive thirst, polyuria, cold intolerance, heat intolerance, goiter Psychiatric: depression, anxiety, anti-depressants, alcohol abuse, drug abuse, insomnia, change in sleep pattern and mood changes NO SI/HI Heme/lymph: bruising, bleeding gums, blood clots, swollen glands, lymphedema, Allergic/immune: allergic rhinitis, hay fever, asthma, hives Objective: Vital Signs - 24 hr 05/04/18 05/04/18 05/05/18 14:00 21:58 05:38 Temperature 98.6 F 98.3 F 97.5 F L Pulse Rate 82 96 H 86 Respiratory 18 22 22 Rate Blood Pressure 128/70 137/74 146/71 H O2 Sat by Pulse 98 96 93 L Oximetry 05/05/18 09:34 Temperature Pulse Rate Respiratory Rate Blood Pressure O2 Sat by Pulse 93 L Oximetry Constitutional: Appearance-No acute distress, Consistent with stated age, talks full sentences, hirsuitism along upper lip. Orientation- Oriented x 3, alert Build and Nutrition-[normal] General- Patient is pleasant and cooperative with the interview and exam, Ecchymosis prominently left chest, midline chest, bicep, along the posterior aspect of tricep and entirety of bicep down to the antecubital fossa. NOrmal touch sense, normal temp sense and normal movement distal to elbow. Pharmacist 5/5. No skin breakdown about buttock ( Nurse Linda in room). No breakdown heels (padded). SCD in place. ENMT: Nasal mucosa- No bleeding noted and no ulcerations observed. [place], moist. Turbinates non boggy. Lips- normal color, moist without cracks/lesions Oral Cavity/Palate- hard/soft palate intact without lesions, oral mucosa pink and moist. Dentures, Tongue normal midline. Oropharynx- no pharyngeal erythema , Uvula midline. No post nasal drip. No exudate. Salivary glands- Non tender to palpation CHEST/LUNG: Inspection- symmetric chest wall no pectus deformity. Normal effort , no distress, no use of accessory muscles. Palpation- nontender sternum, ribline. Ecchymosis along anterior chest and mostly along left pectoralis region, AC joint, lateral arm. Auscultation- Breath sounds decreased/coarse but appear to remain at baseline throughout all lung tobin. tracheal sounds, bronchial sounds overlying sternum, Bronchovessicular sounds between scapulae posteriorly, vessicular breath sounds heard throughout periphery are stable and more clear than they have been over last few visits. Adventitious sounds- Scattered wheezes, No rales, Scattered rhonchi. No accessory muscle use, no distress. Tolerating O2 NC. CARDIOVASCULAR: Auscultation- Regular rate and rhythm. Distant sounds, III/ murmur left sternal border noted in sitting, supine positions. This does radiate into axilla and carotid region. Extremities- no cyanosis, no edema, no increased warmth of extremities ABDOMEN: Inspection- normal and no visible pulsations. Normal contour. Auscultation- Bowel sounds normal, no abdominal bruits. Palpation/Percussion- soft, non-tender, no rebound tenderness, no rigidity (guarding), no jar tenderness, no masses. Peripheral Vascular: Upper extremity Left- Normal temperature with pink nailbeds and no ulcerations. Upper extremity Right- Normal temperature with pink nailbeds and no ulcerations. Lower extremity- Normal temperature with pink nailbeds and no ulcerations. DP pulses 2+ bilaterally. Onychomycosis, nail hypertrophy is present. Pedal hair reduced but intact. Normal capillary refill. Edema- No edema. Musculoskeletal: Generalized-No generalized swelling or edema of extremities, no digital clubbing or cyanosis, neurovascularly intact all four extremities. Upper extremity- UNCHANGED FROM 05/03/18. Symmetrical posture. Left arm inside of shoulder sling else no visible deformity. Prominent ecchymoses along the anterior shoulder, superior shoulder, lateral shoulder, left lateral pectoral region. Tender along AC joint, along upper humerus and down to elbow. She has no pain at lateral/medial epicondyle. Normal sensation along medial and lateral upper extremity proximally and distally. No E/O compartment syndrome. NO tenderness overlying right shoulder, chest on the right side. As noted no tenderness bilateral lateral/medial epicondyle. Pharmacist 5/5 and strength 5/5 bilateral UE. Elbow palpated, no tenderness overlying olecranon bilat. Normal supination, pronation to active/passive ROM on right, she would not do this on left ?aprehension. Bicep insertion/tricep insertion appear normal without obvious pathology on right, tender on left and guarding is present. Known fracture of the left shoulder. Unchanged from exam yesterday, she was able to reach back from right lateral decubitus position with her left arm to scratch back of her left leg. She was bending at elbow fine. She had some forward flexion of shoulder today. I believe phys/OT can be helpful for her. Neurological: General- Moves all 4 extremities, SAI is currently in sling. Symmetrical face and body posture. Cranial nerves- individually evaluated II- XII and intact. PERRLA, Normal EOMI, visual/special senses appear intact, Face is symmetrical and normal sensation/movement, normal tongue, normal strength/ posture of neck musculature. Reflexes- intact with DTR 2+ patellar, Achilles, bicep, brachial, tricep. Ankle clonus normal with 2 beats. Strength- 5/5 bilateral UE and LE. Soft touch- intact bilateral UE and LE. Temperature sensation- intact bilateral UE and LE. Neuropsych: Oriented- Person, place, time. (AAOx3), Mood/affect- normal and congruent. Able to articulate well. Speech-Normal speech, normal rate, normal tone, normal use of language, volume and coherence. Thought content- Stable, communicative. Alert. Associations- intact, no SI/HI, no hallucinations, delusions, obsessions. Judgment/insight- Appropriate. Memory-Recall intact, remote and recent memory intact. Knowledge- Age appropriate fund of knowledge, concentration and attention span normal. Laboratory Last Values WBC 16.86 K/ul (4.6-10.2) H D 05/05/18 04:45 RBC 2.75 10^6/ul (4.20-5.40) L 05/05/18 04:45 Hgb 9.5 g/dl (12.0-16.0) L 05/05/18 04:45 Hct 28.2 % (37.0-47.0) L 05/05/18 04:45 MCV 102.5 fl (81.0-99.0) H 05/05/18 04:45 MCH 34.5 pg (27.0-31.0) H 05/05/18 04:45 MCHC 33.7 (31.8-35.4) 05/05/18 04:45 RDW Coeff of Lynette 11.7 % (11.6-14.8) 05/05/18 04:45 Plt Count 366 10^3/uL (140-440) 05/05/18 04:45 Immature Gran % (Auto) 0.7 % (0.0-5.0) 05/05/18 04:45 Neut % (Auto) 88.0 05/05/18 04:45 Lymph % (Auto) 6.8 (10.0-50.0) L 05/05/18 04:45 [place] % (Auto) 4.4 (0-10) 05/05/18 04:45 Eos % (Auto) 0.0 % (0.0-7.0) 05/05/18 04:45 Baso % (Auto) 0.1 % (0.0-3.0) 05/05/18 04:45 Reticulocyte % (Auto) 2.45 % 05/03/18 09:35 Immature Gran # (Auto) 0.1 (0.0-1.0) 05/05/18 04:45 Neut # (Auto) 14.9 K/ul (2.0-6.9) H 05/05/18 04:45 Lymph # (Auto) 1.2 K/uL (0.60-3.4) 05/05/18 04:45 [place] # (Auto) 0.7 K/uL (0.4-2.0) 05/05/18 04:45 Eos # (Auto) 0.0 K/ul (0.0-0.7) 05/05/18 04:45 Baso # (Auto) 0.0 K/uL (0-0.2) 05/05/18 04:45 Absolute Retic 0.0671 05/03/18 09:35 Retic Hgb Equivalent 37.6 05/03/18 09:35 PT 9.7 SEC (9.3-11.0) 05/03/18 09:35 INR 0.97 SI (0.0-3.9) 05/03/18 09:35 APTT 29.7 SEC (23.9-40.0) 05/03/18 09:35 Puncture Site Rbrach 05/03/18 09:27 O2 Saturation 97.0 % (95-100) 05/03/18 09:27 ABG pH 7.445 (7.35-7.45) 05/03/18 09:27 ABG pCO2 54.5 mmHg (35-45) H 05/03/18 09:27 ABG pO2 88.0 mmHg (85-100) 05/03/18 09:27 ABG HCO3 37.5 (22.0-26.0) H 05/03/18 09:27 ABG Total CO2 39 (22.0-28.0) H 05/03/18 09:27 ABG Base Excess 13 (-2.0-2.0) H 05/03/18 09:27 O2 Delivery Device Nc 05/03/18 09:27 Oxygen Liter Flow 3.00 05/03/18 09:27 Sodium 131.8 mmol/L (134.5-145) L 05/05/18 04:45 Potassium 3.96 mmol/L (3.5-5.1) 05/05/18 04:45 Chloride 92.1 mmol/L (98-107) L 05/05/18 04:45 Carbon Dioxide 33.3 mmol/L (22-30.0) H 05/05/18 04:45 Anion Gap 10.36 05/05/18 04:45 BUN 2.2 mg/dL (7-17) L 05/05/18 04:45 Creatinine 0.48 mg/dL (0.60-1.30) L 05/05/18 04:45 Estimated GFR (MDRD) 127.00 mL/min 05/05/18 04:45 BUN/Creatinine Ratio 4.58 05/05/18 04:45 Glucose 139.8 mg/dL (74-106) H 05/05/18 04:45 Lactic Acid 1.08 mmol/L (0.7-2.1) 05/03/18 11:25 Calcium 8.77 mg/dL (8.4-10.2) 05/05/18 04:45 Magnesium 1.59 mg/dL (1.6-2.3) L 05/04/18 14:05 Iron 30.2 ug/dL (37-170) L 05/03/18 09:35 TIBC 169 ug/dL (261-497) L 05/03/18 09:35 % Saturation 18 % 05/03/18 09:35 Transferrin 118 mg/dL (200-370) L 05/03/18 09:35 Ferritin 985.00 ng/mL (11.1-264.0) H 05/03/18 09:35 Total Bilirubin 0.43 mg/dL (0.2-1.3) 05/05/18 04:45 AST 71.4 U/L (14-36) H 05/05/18 04:45 ALT 31.6 U/L (0-35) 05/05/18 04:45 Alkaline Phosphatase 66.5 U/L (53-141) 05/05/18 04:45 Total Creatine Kinase 1573.4 U/L (30-135) H 05/05/18 04:45 CK-MB (CK-2) 5.040 ng/ml (0.0-2.38) H* 05/05/18 04:45 CK-MB (CK-2) % 0.3200 05/05/18 04:45 Troponin I 0.014 ng/ml (0.0000-0.120) 05/04/18 03:25 Total Protein 6.45 g/dL (6.3-8.2) 05/05/18 04:45 Albumin 3.56 g/dL (3.5-5.0) 05/05/18 04:45 Globulin 2.89 05/05/18 04:45 Albumin/Globulin Ratio 1.23 05/05/18 04:45 Amylase 37.7 U/L (30-110) 05/03/18 10:00 Lipase 29.3 U/L (23-300) 05/03/18 10:00 Vitamin B12 973 pg/mL (239-931) H 05/03/18 09:35 Folate 5.29 ng/mL (2.76-) 05/03/18 09:35 Procalcitonin 0.27 ng/mL (0.09) 05/03/18 09:35 TSH 0.725 uIU/L (0.465-4.68) 05/03/18 09:35 Free T4 1.25 ng/dL (0.78-2.19) 05/03/18 09:35 Urine Color Yellow (YELLOW) 05/04/18 15:47 Urine Clarity Clear (CLEAR) 05/04/18 15:47 Urine pH 6.5 (5-9) 05/04/18 15:47 Ur Specific [place] 1.020 (1.005-1.030) 05/04/18 15:47 Urine Protein Negative (NEGATIVE) 05/04/18 15:47 Urine Glucose (UA) Trace (NEGATIVE) 05/04/18 15:47 Urine Ketones Negative (NEGATIVE) 05/04/18 15:47 Urine Blood Negative (NEGATIVE) 05/04/18 15:47 Urine Nitrite Negative (NEGATIVE) 05/04/18 15:47 Urine Bilirubin Negative (NEGATIVE) 05/04/18 15:47 Urine Urobilinogen 0.2 (0.2) 05/04/18 15:47 Ur Leukocyte Esterase Negative (NEGATIVE) 05/04/18 15:47 Urine Microscopic RBC 0-2 (0-2) 05/03/18 13:00 Urine Microscopic WBC 30-50 (0-2) 05/03/18 13:00 Ur Squamous Epith Cells 5-10 (0-5) 05/03/18 13:00 Influ A Molecular Assay Negative by naat (NEGATIVE) 05/03/18 09:35 Influ B Molecular Assay Negative by naat (NEGATIVE) 05/03/18 09:35 Blood Type A POSITIVE 05/04/18 18:45 Antibody Screen Negative 05/04/18 18:45 H/H Trends 05/03/18 05/03/18 05/04/18 Range/Units 09:35 21:30 03:25 Hgb 9.5 L 8.8 L 8.5 L (12.0-16.0) g/dl Hct 26.8 L 24.6 L 24.1 L (37.0-47.0) % 05/04/18 05/05/18 Range/Units 14:05 04:45 Hgb 7.9 L 9.5 L (12.0-16.0) g/dl Hct 22.5 L 28.2 L (37.0-47.0) % CPK/Troponin I Trends 05/03/18 05/03/18 05/04/18 Range/Units 09:35 19:40 03:25 Total Creatine Kinase 1504.1 H 2306.0 H 2423.3 H (30-135) U/L CK-MB (CK-2) 13.400 H* 11.700 H* 9.230 H* (0.0-2.38) ng/ml CK-MB (CK-2) % 0.8900 0.5000 0.3800 Troponin I 0.023 0.019 0.014 (0.0000-0.120) ng/ml 05/04/18 05/04/18 05/05/18 Range/Units 06:00 14:05 04:45 Total Creatine Kinase 1472.9 H 1584.8 H 1573.4 H (30-135) U/L CK-MB (CK-2) 6.620 H* 5.610 H* 5.040 H* (0.0-2.38) ng/ml CK-MB (CK-2) % 0.4400 0.3500 0.3200 Troponin I (0.0000-0.120) ng/ml Glucose Trends 05/03/18 05/03/18 05/03/18 Range/Units 09:35 16:04 19:40 Glucose 107.3 H 112.4 H 95.5 (74-106) mg/dL 05/04/18 05/04/18 05/05/18 Range/Units 03:25 14:05 04:45 Glucose 154.7 H D 182.1 H 139.8 H (74-106) mg/dL Intake & Output 05/02/18 05/03/18 05/04/18 05/05/18 23:59 23:59 23:59 23:59 Intake Total 490 5009 1112 Output Total 125 2810 Balance 365 2199 1112 Weight 117 lb 1.047 oz 117 lb 1.047 oz (1) Rhabdomyolysis Status: Acute Code(s): M62.82 - RHABDOMYOLYSIS SNOMED Code(s): 052170530 (2) Elevated CK-MB level Status: Acute Code(s): R74.8 - ABNORMAL LEVELS OF OTHER SERUM ENZYMES SNOMED Code(s): 928790861 (3) Hypocalcemia Status: Resolved Code(s): E83.51 - HYPOCALCEMIA SNOMED Code(s): 0738372 (4) Anemia Status: Acute Code(s): D64.9 - ANEMIA, UNSPECIFIED SNOMED Code(s): 733455401 (5) Hypokalemia Status: Resolved Code(s): E87.6 - HYPOKALEMIA SNOMED Code(s): 31851382 (6) Hyponatremia Status: Resolved Code(s): E87.1 - HYPO-OSMOLALITY AND HYPONATREMIA SNOMED Code(s): 27483333 (7) Humeral surgical neck fracture Status: Acute Code(s): S42.213A - UNSP DISP FX OF SURGICAL NECK OF UNSP HUMERUS, INIT SNOMED Code(s): 361299105 (8) Dehydration Status: Resolved Code(s): E86.0 - DEHYDRATION SNOMED Code(s): 81334986 (9) Hypomagnesemia Status: Acute Code(s): E83.42 - HYPOMAGNESEMIA SNOMED Code(s): 806757287 (10) Leukocytosis Status: Acute Code(s): D72.829 - ELEVATED WHITE BLOOD CELL COUNT, UNSPECIFIED SNOMED Code(s): 215668308 Plan: Metabolic encephalopathy: Appears to have resolved. Electrolytes Sodium/K+/Ca++ normalized. Mg++ remains low. I will stop the K+ in fluids, she lost her IV this am, I will have thim put it in and continue fluids at 75ml/hour. I will d/ c the K+ from the fluids and continue PO K+, PO Mg++ and have her/family focus on intake. I discussed case with Radha WU this am via phone. Overall markedly improved and likely good candidate for SWING. She has numerous home aids already to include walker/shower chair. [facility] may be a good option in 1-2 weeks but I think she may need more than what they can offer acutely. NO more labs today. REpeat CBC/CMP/CK tomorrow am. GCS 15 this am. - CBC/CMP/CK am 05/06/18. Rhabdomyolysis/Elevated CK/CKMB: Worsened again yesterday pm but better again this am. We will repeat this CK in am tomorrow. She has SG 1.020 in urine. I want her closer to 1.010. - Continue inpatient status - Fluid replacement 75ml/hour + K+ per orders - CKMB 05/06/18 - Electrolyte replacement as needed - telemetry - Strict I+O Humerus Fracture: Limit mobility/movement. Still minimal benefit to additional imaging at this time. no obvious hematoma, resolving ecchymosis. no obvious/ active bleed. F/u ortho as Outpatient Leukocytosis: Emesis x 2 yesterday, on steroids through ER. I have held the steroids today after discussion/review of meds with nursing this am. I appreciated their input with case and we decided to stopping steroid. Breathing is stable. Suspect demarination. - Repeat CBC in am 05/06/18. Hypokalemia: Resolving. Hold K+ in fluids. This is nearly back to 4.0. We will continue to utilize oral therapy today. - REpeat CMP 05/06/18 - Monitor mg++, continue oral replacement - Still Consider stopping HCTZ, will monitor for now. Hypotension: Stable/resolved. BP ~146/74. I will add back coreg 3.125 but at 1/ 2 tabl BID. Continue to hold norvasc. - REsume meds as needed. - Monitor - I+O -telemetry - NO BP checks/draws left arm due to fracture. Anemia: 7.9 to 9.5 supports dilutional effect. - Continue to hold iron PO - Hemoocult with BM. - CBC am 05/06/18. - Type cross/held 1 unit. Hypomagnesemia: Mild, replacing PO. - Mag Oxide 400mg 1 PO BID. Hyponatremia: Resolving/improving. Suspect poor nutrition. - Repeat CMP 05/06/18 Pseudohypocalcemia: Resolved. Monitor. - CMP 05/06/18. Elevated Glucose: Urine GLucose +. Serum glucose elevated as well. - A1C am tomorrow. Transaminitis: Elevated AST but improving. We will continue to monitor. - CMP 05/06/18 Diet: Regular DVT PROPHY: SUSHIL/SCD. She is on aggrenox, i will continue this for now. Monitor CBC> Pain: [place] TID daily 7.5mg/325mg to continue. R/B/A d/w patient. Code status: DNR Disposition: I will continue to fluid hydrate, although at decreased pace, replace electrolyte issues as indicated and work to reduce the CK/CKMB and to maintain the sodium, mg++, K+. Sodium is essentially baseline. No further need for hypertonic saline after 05/03/18. Mg replaced. K+ being replaced. She remains stable on tele, BP looks okay, vitor PVC, will add BB back. Hold norvasc. Goal keep BP 120-150/70-90. She appears to have improved regarding vitals/tele/mood. Encephalopathy resolved, mentation at baseline. She has new/ resolving bruising. Pain is reasonably controlled with norco TID. She is tolerating meals, good uout. No BM so far. Hgb better today with decreased rate of fluids, CK still elevated but better, CKMB improving. We will Monitor one more day as inpatient. >35 minutes spent rounding on this patient. She continues to meet inpatient criteria with admission to [facility]. Suspect SWING vs SNF for rehab with known shoulder fracture non surgical at this time.
[2018-05-05] MEDS: SODIUM CHLORIDE 1,000 ML IV SCH ×2 (10:54→23:25)
[2018-05-05] MEDS ORDERED: COREG PO SCH (17:30)
[2018-05-05] MEDS: PYRIDOXINE HCL PO SCH (20:16)
[2018-05-05] MEDS: MELATONIN PO SCH (20:16)
[2018-05-06] MEDS: DUONEB NEB SCH ×2 (04:35→11:29)
[2018-05-06 05:21] VITALS: BP 158/82; TEMP 98.4
[2018-05-06] MEDS: PROTONIX PO SCH (05:48)
[2018-05-06] MEDS ORDERED: SODIUM CHLORIDE 1,000 ML IV SCH (07:30)
--- NOTE | 2018-05-06 07:37 | PCM.PROG ---
Subjective: 72 yo WF HD 4 admitted 05/03/18 with history of 1 week post fall, fracture of neck of humerus seen in our ER. Family with her 24 hours per day but she would not eat/drink. She presented to our ER 05/03/18 with dehydration, rhabdomyolysis , hypokalemia, hyponatremia, hypocalcemia, hypomagnesemia, anemia, leukocytosis , elevated AST, chronic COPD and ?changes to pancreas on CT abdomen. She had been on steady fluid hydration NS + 20meq K+ at 125ml/hour up until 184105/04/18 when I changed this to 75ml/hour due to overhydration and hgb dropped to 7.9. She was typed/cross and held. I will release this blood now. I backed fluids down and checked labs again yesterday, and then again today. STeroids held yesterday, but she did get another dose. WBC increased from 16.86 yesterday to 18.37 today. Hgb is now up to 10 and plt up to 427. With dilutional effect resolved, she has labs similar to admit. I talked with nurse Linda again this am, it still appears that she has demargination. #2 emesis after OJ 05/04/18 , no emesis since that point. Urine culture so far normal shanti/mixed, no acute process. CT chest was negative. CT abd had ? pancreatic process, enzymes were negative. No BM while in hospital. No documented I+O yesterday, just 6 voids. NO SOA, no chest pain, no URI symptoms, no cough, no [place], no vision changes, no c/o pain anywhere except left arm. Denied abd pain, N/V/D, no vaginal discharge, no urinary freq/hesitancy. Interestingly her total CK dropped from yesterday down to 1115.4 from 1573.4 but her CKMB increased from 5.040 to 5.320. AST continues to improve now at 53.9 (down fro 91.1 to 76.5, to 71.4) and ALT stable at 30.1. Calcium remains stable at 8.88. Albumin has increased to 3.56. Sodium is stable at 133.6. Her glucose had been up a little but her A1C was 5.24. BP has been up 157-158/81-81. I will increase her coreg back to 6.25 BID. Her K+ is at 4.66. I will back her down to 20meq K+CL with meals from the 40. Overall this am she feels better. She has not had a BM, noted this am she does not have BM in hospital. Radha Youssef PODonal/Daughter present this am and we had a another lengthy talk about disposition noted SNF vs Swing status in our hospital. Phys therapy and OT to see her today. Patient is eating, does not like taste of food. Family brought her fish dinner and she ate it all. We have stopped the steroids, I will have no further blood draw today, we will consider next CBC/CMP 05/08/18 and CK. Monitor for fever. OOB as much as possible. Discussed case with family again today and feel that swing is likely best option. She still rates her pain in left arm at 5-7/10. Bruising is resolving and worse along chest but better along her arm. She has been OOB several times to use restroom, struggles to get up from commode per family. NOrmally uses walker at home. Discussed I want her out of bed as much as possible. SCD/SUSHIL in place, heel padding in place. Rolling regularly. No S/SX of infection. Lab parameters are being monitored. I have increased fluids from 75ml/hour to 100ml/hour. REVIEW OF SYMPTOMS: (Positives bolded) Essentially unchanged 05/05/18. General: weight loss, fever, chills, night sweats, fatigue, appetite loss ( BETTER) HEENT: blurry vision, eye pain, eye discharge, dry eyes, decreased vision, sore throat tinnitus, bloody nose, hearing loss, sinus pain/pressure, ear pain/ pressure. Respiratory: shortness of breath (CHRONIC/STABLE), cough (CHRONIC/STABLE), hemoptysis, wheezing, pleurisy, Cardiovascular: chest pain, PND, palpitation, edema, orthopnea, syncope, swelling of extremities Gastro: Nausea, vomiting, diarrhea, hematemesis, abdominal pain, constipation Genito: hematuria, dysuria, glycosuria, hesitancy, frequency, incontinence [place]: Arthralgia, myalgia, muscle weakness, joint swelling, LUE Skin: rash, pruritis, sores, nail changes, skin thickening, change in wart/mole , itching, rash, new lesions, pruritus, nail changes Neuro: Migraine, numbness, ataxia, tremor, vertigo, weakness LUE, memory loss, Irritability, dizziness Endocrine: excessive thirst, polyuria, cold intolerance, heat intolerance, goiter Psychiatric: depression, anxiety, anti-depressants, alcohol abuse, drug abuse, insomnia, change in sleep pattern and mood changes NO SI/HI Heme/lymph: bruising, bleeding gums, blood clots, swollen glands, lymphedema, Allergic/immune: allergic rhinitis, hay fever, asthma, hives Objective: Vital Signs - 24 hr 05/05/18 05/05/18 05/05/18 09:34 14:00 22:00 Temperature 98.4 F 97.8 F Pulse Rate 76 70 Respiratory 14 16 Rate Blood Pressure 129/84 157/81 H O2 Sat by Pulse 93 L 96 90 L Oximetry 05/06/18 05:18 Temperature 98.4 F Pulse Rate 74 Respiratory 18 Rate Blood Pressure 158/82 H O2 Sat by Pulse 96 Oximetry Constitutional: Appearance-No acute distress, Consistent with stated age, talks full sentences, hirsuitism along upper lip. Daughter Radha Youssef in room. Orientation- Oriented x 3, alert Build and Nutrition-[normal] General- Patient is pleasant and cooperative with the interview and exam, Ecchymosis prominently left chest, midline chest, now right chest and to right bicep, along the posterior aspect of tricep and entirety of bicep down to the antecubital fossa. Normal touch sense, normal temp sense and normal movement distal to elbow. Mystery Shopper 5/5. No skin breakdown about buttock (Nurse Mckeon in room). No breakdown heels (padded). SCD in place. ENMT: Nasal mucosa- No bleeding noted and no ulcerations observed. [place], moist. Turbinates non boggy. Lips- normal color, moist without cracks/lesions Oral Cavity/Palate- hard/soft palate intact without lesions, oral mucosa pink and moist. Dentures in place, no oral lesions, Tongue normal midline. Oropharynx- no pharyngeal erythema, Uvula midline. No post nasal drip. No exudate. Salivary glands- Non tender to palpation CHEST/LUNG: Inspection- symmetric chest wall no pectus deformity. Normal effort , no distress, no use of accessory muscles. Palpation- nontender sternum, ribline. Ecchymosis along anterior chest and mostly along left pectoralis region, AC joint, lateral arm. Auscultation- Breath sounds decreased/coarse but appear to remain at baseline throughout all lung tobin. tracheal sounds, bronchial sounds overlying sternum, Bronchovessicular sounds between scapulae posteriorly, vessicular breath sounds heard throughout periphery are stable and more clear than they have been over last few visits. Adventitious sounds- Scattered wheezes, No rales, Scattered rhonchi. No accessory muscle use, no distress. Tolerating O2 NC. Talks in complete sentences, no distress. CARDIOVASCULAR: Auscultation- Regular rate and rhythm. Distant sounds, III/ murmur left sternal border noted in sitting, supine positions. This does radiate into axilla and carotid region. Extremities- no cyanosis, no edema, no increased warmth of extremities Tele shows SR. ABDOMEN: Inspection- normal and no visible pulsations. Normal contour. Auscultation- Bowel sounds normal, no abdominal bruits. Palpation/Percussion- soft, non-tender, no rebound tenderness, no rigidity (guarding), no jar tenderness, no masses. Peripheral Vascular: Upper extremity Left- Normal temperature with pink nailbeds and no ulcerations. Upper extremity Right- Normal temperature with pink nailbeds and no ulcerations. Lower extremity- Normal temperature with pink nailbeds and no ulcerations. DP pulses 2+ bilaterally. Onychomycosis, nail hypertrophy is present. Pedal hair reduced but intact. Normal capillary refill. Edema- No edema. Musculoskeletal: Generalized-No generalized swelling or edema of extremities, no digital clubbing or cyanosis, neurovascularly intact all four extremities. Upper extremity- UNCHANGED EXAM. Right lateral side lying. Symmetrical posture. Left arm inside of shoulder sling else no visible deformity. Prominent ecchymoses along the anterior shoulder, superior shoulder, lateral shoulder, left lateral pectoral region chest, cross midline to right chest and right bicep. Tender along AC joint, along upper humerus and down to elbow. She has no pain at lateral/medial epicondyle. Normal sensation along medial and lateral upper extremity proximally and distally. No E/O compartment syndrome. NO tenderness overlying right shoulder, chest on the right side. As noted no tenderness bilateral lateral/medial epicondyle. [place] 5/5 and strength 5/5 bilateral UE. Elbow palpated, no tenderness overlying olecranon bilat. Normal supination, pronation to active/passive ROM on right, she would not do this on left ?apprehension. Bicep insertion/tricep insertion appear normal without obvious pathology on right, tender on left and guarding remains present. Known fracture of the left shoulder. Unchanged from exam yesterday, she was able to reach back from right lateral decubitus position with her left arm to scratch back of her left leg. She was bending at elbow fine. She had some forward flexion of shoulder today. I believe phys/OT can be helpful for her. Neurological: General- Moves all 4 extremities, SAI is currently in sling. Symmetrical face and body posture. Cranial nerves- individually evaluated II- XII and intact. PERRLA, Normal EOMI, visual/special senses appear intact, Face is symmetrical and normal sensation/movement, normal tongue, normal strength/ posture of neck musculature. Reflexes- intact with DTR 2+ patellar, Achilles, bicep, brachial, tricep. Ankle clonus normal with 2 beats. Strength- 5/5 bilateral UE and LE. Soft touch- intact bilateral UE and LE. Temperature sensation- intact bilateral UE and LE. Neuropsych: Oriented- Person, place, time. (AAOx3), Mood/affect- normal and congruent. Able to articulate well. Speech-Normal speech, normal rate, normal tone, normal use of language, volume and coherence. Thought content- Stable, communicative. Alert. Associations- intact, no SI/HI, no hallucinations, delusions, obsessions. Judgment/insight- Appropriate. Memory-Recall intact, remote and recent memory intact. Knowledge- Age appropriate fund of knowledge, concentration and attention span normal. Laboratory Last Values WBC 18.37 K/ul (4.6-10.2) H 05/06/18 05:45 RBC 2.87 10^6/ul (4.20-5.40) L 05/06/18 05:45 Hgb 10.0 g/dl (12.0-16.0) L 05/06/18 05:45 Hct 29.8 % (37.0-47.0) L 05/06/18 05:45 MCV 103.8 fl (81.0-99.0) H 05/06/18 05:45 MCH 34.8 pg (27.0-31.0) H 05/06/18 05:45 MCHC 33.6 (31.8-35.4) 05/06/18 05:45 RDW Coeff of Lynette 12.4 % (11.6-14.8) 05/06/18 05:45 Plt Count 427 10^3/uL (140-440) 05/06/18 05:45 Immature Gran % (Auto) 1.5 % (0.0-5.0) 05/06/18 05:45 Neut % (Auto) 73.2 05/06/18 05:45 Lymph % (Auto) 15.0 (10.0-50.0) 05/06/18 05:45 [place] % (Auto) 10.1 (0-10) H 05/06/18 05:45 Eos % (Auto) 0.0 % (0.0-7.0) 05/06/18 05:45 Baso % (Auto) 0.2 % (0.0-3.0) 05/06/18 05:45 Reticulocyte % (Auto) 2.45 % 05/03/18 09:35 Immature Gran # (Auto) 0.3 (0.0-1.0) 05/06/18 05:45 Neut # (Auto) 13.4 K/ul (2.0-6.9) H 05/06/18 05:45 Lymph # (Auto) 2.8 K/uL (0.60-3.4) 05/06/18 05:45 [place] # (Auto) 1.9 K/uL (0.4-2.0) 05/06/18 05:45 Eos # (Auto) 0.0 K/ul (0.0-0.7) 05/06/18 05:45 Baso # (Auto) 0.0 K/uL (0-0.2) 05/06/18 05:45 Absolute Retic 0.0671 05/03/18 09:35 Retic Hgb Equivalent 37.6 05/03/18 09:35 PT 9.7 SEC (9.3-11.0) 05/03/18 09:35 INR 0.97 SI (0.0-3.9) 05/03/18 09:35 APTT 29.7 SEC (23.9-40.0) 05/03/18 09:35 Puncture Site Rbrach 05/03/18 09:27 O2 Saturation 97.0 % (95-100) 05/03/18 09:27 ABG pH 7.445 (7.35-7.45) 05/03/18 09:27 ABG pCO2 54.5 mmHg (35-45) H 05/03/18 09:27 ABG pO2 88.0 mmHg (85-100) 05/03/18 09:27 ABG HCO3 37.5 (22.0-26.0) H 05/03/18 09:27 ABG Total CO2 39 (22.0-28.0) H 05/03/18 09:27 ABG Base Excess 13 (-2.0-2.0) H 05/03/18 09:27 O2 Delivery Device Nc 05/03/18 09:27 Oxygen Liter Flow 3.00 05/03/18 09:27 Sodium 133.6 mmol/L (134.5-145) L 05/06/18 05:45 Potassium 4.65 mmol/L (3.5-5.1) 05/06/18 05:45 Chloride 94.5 mmol/L (98-107) L 05/06/18 05:45 Carbon Dioxide 33.1 mmol/L (22-30.0) H 05/06/18 05:45 Anion Gap 10.65 05/06/18 05:45 BUN 5.2 mg/dL (7-17) L 05/06/18 05:45 Creatinine 0.51 mg/dL (0.60-1.30) L 05/06/18 05:45 Estimated GFR (MDRD) 119.00 mL/min 05/06/18 05:45 BUN/Creatinine Ratio 10.19 05/06/18 05:45 Glucose 86.0 mg/dL (74-106) 05/06/18 05:45 Hemoglobin A1c 5.24 (4.0-6.0) 05/06/18 05:45 Lactic Acid 1.08 mmol/L (0.7-2.1) 05/03/18 11:25 Calcium 8.88 mg/dL (8.4-10.2) 05/06/18 05:45 Magnesium 1.59 mg/dL (1.6-2.3) L 05/04/18 14:05 Iron 30.2 ug/dL (37-170) L 05/03/18 09:35 TIBC 169 ug/dL (261-497) L 05/03/18 09:35 % Saturation 18 % 05/03/18 09:35 Transferrin 118 mg/dL (200-370) L 05/03/18 09:35 Ferritin 985.00 ng/mL (11.1-264.0) H 05/03/18 09:35 Total Bilirubin 0.43 mg/dL (0.2-1.3) 05/06/18 05:45 AST 53.9 U/L (14-36) H 05/06/18 05:45 ALT 30.1 U/L (0-35) 05/06/18 05:45 Alkaline Phosphatase 63.4 U/L (53-141) 05/06/18 05:45 Total Creatine Kinase 1115.4 U/L (30-135) H 05/06/18 05:45 CK-MB (CK-2) 5.320 ng/ml (0.0-2.38) H* 05/06/18 05:45 CK-MB (CK-2) % 0.4700 05/06/18 05:45 Troponin I 0.014 ng/ml (0.0000-0.120) 05/04/18 03:25 Total Protein 6.28 g/dL (6.3-8.2) L 05/06/18 05:45 Albumin 3.56 g/dL (3.5-5.0) 05/06/18 05:45 Globulin 2.72 05/06/18 05:45 Albumin/Globulin Ratio 1.30 05/06/18 05:45 Amylase 37.7 U/L (30-110) 05/03/18 10:00 Lipase 29.3 U/L (23-300) 05/03/18 10:00 Vitamin B12 973 pg/mL (239-931) H 05/03/18 09:35 Folate 5.29 ng/mL (2.76-) 05/03/18 09:35 Procalcitonin 0.27 ng/mL (0.09) 05/03/18 09:35 TSH 0.725 uIU/L (0.465-4.68) 05/03/18 09:35 Free T4 1.25 ng/dL (0.78-2.19) 05/03/18 09:35 Urine Color Yellow (YELLOW) 05/04/18 15:47 Urine Clarity Clear (CLEAR) 05/04/18 15:47 Urine pH 6.5 (5-9) 05/04/18 15:47 Ur Specific [place] 1.020 (1.005-1.030) 05/04/18 15:47 Urine Protein Negative (NEGATIVE) 05/04/18 15:47 Urine Glucose (UA) Trace (NEGATIVE) 05/04/18 15:47 Urine Ketones Negative (NEGATIVE) 05/04/18 15:47 Urine Blood Negative (NEGATIVE) 05/04/18 15:47 Urine Nitrite Negative (NEGATIVE) 05/04/18 15:47 Urine Bilirubin Negative (NEGATIVE) 05/04/18 15:47 Urine Urobilinogen 0.2 (0.2) 05/04/18 15:47 Ur Leukocyte Esterase Negative (NEGATIVE) 05/04/18 15:47 Urine Microscopic RBC 0-2 (0-2) 05/03/18 13:00 Urine Microscopic WBC 30-50 (0-2) 05/03/18 13:00 Ur Squamous Epith Cells 5-10 (0-5) 05/03/18 13:00 Influ A Molecular Assay Negative by naat (NEGATIVE) 05/03/18 09:35 Influ B Molecular Assay Negative by naat (NEGATIVE) 05/03/18 09:35 Blood Type A POSITIVE 05/04/18 18:45 Antibody Screen Negative 05/04/18 18:45 CPK/Troponin I Trends 05/03/18 05/03/18 05/04/18 Range/Units 09:35 19:40 03:25 Total Creatine Kinase 1504.1 H 2306.0 H 2423.3 H (30-135) U/L CK-MB (CK-2) 13.400 H* 11.700 H* 9.230 H* (0.0-2.38) ng/ml CK-MB (CK-2) % 0.8900 0.5000 0.3800 Troponin I 0.023 0.019 0.014 (0.0000-0.120) ng/ml 05/04/18 05/04/18 05/05/18 Range/Units 06:00 14:05 04:45 Total Creatine Kinase 1472.9 H 1584.8 H 1573.4 H (30-135) U/L CK-MB (CK-2) 6.620 H* 5.610 H* 5.040 H* (0.0-2.38) ng/ml CK-MB (CK-2) % 0.4400 0.3500 0.3200 Troponin I (0.0000-0.120) ng/ml 05/06/18 Range/Units 05:45 Total Creatine Kinase 1115.4 H (30-135) U/L CK-MB (CK-2) 5.320 H* (0.0-2.38) ng/ml CK-MB (CK-2) % 0.4700 Troponin I (0.0000-0.120) ng/ml Na/K Trends 05/03/18 05/03/18 05/03/18 Range/Units 09:35 16:04 19:40 Sodium 126.2 L 127.4 L 126.5 L (134.5-145) mmol/L Potassium 2.87 L 2.90 L 2.97 L (3.5-5.1) mmol/L 05/03/18 05/04/18 05/04/18 Range/Units 23:20 03:25 14:05 Sodium 130.8 L 131.0 L 130.7 L (134.5-145) mmol/L Potassium 3.07 L 3.42 L (3.5-5.1) mmol/L 05/05/18 05/06/18 Range/Units 04:45 05:45 Sodium 131.8 L 133.6 L (134.5-145) mmol/L Potassium 3.96 4.65 (3.5-5.1) mmol/L H/H Trends 05/03/18 05/03/18 05/04/18 Range/Units 09:35 21:30 03:25 Hgb 9.5 L 8.8 L 8.5 L (12.0-16.0) g/dl Hct 26.8 L 24.6 L 24.1 L (37.0-47.0) % 05/04/18 05/05/18 05/06/18 Range/Units 14:05 04:45 05:45 Hgb 7.9 L 9.5 L 10.0 L (12.0-16.0) g/dl Hct 22.5 L 28.2 L 29.8 L (37.0-47.0) % WBC Trends 05/03/18 05/03/18 05/04/18 Range/Units 09:35 21:30 03:25 WBC 16.50 H 11.56 H 11.90 H (4.6-10.2) K/ul 05/04/18 05/05/18 05/06/18 Range/Units 14:05 04:45 05:45 WBC 11.62 H 16.86 H D 18.37 H (4.6-10.2) K/ul (1) Rhabdomyolysis Status: Acute Code(s): M62.82 - RHABDOMYOLYSIS SNOMED Code(s): 405865253 (2) Elevated CK-MB level Status: Acute Code(s): R74.8 - ABNORMAL LEVELS OF OTHER SERUM ENZYMES SNOMED Code(s): 912972263 (3) Hypocalcemia Status: Resolved Code(s): E83.51 - HYPOCALCEMIA SNOMED Code(s): 5461656 (4) Anemia Status: Chronic Code(s): D64.9 - ANEMIA, UNSPECIFIED SNOMED Code(s): 316002432 (5) Hypokalemia Status: Resolved Code(s): E87.6 - HYPOKALEMIA SNOMED Code(s): 99289973 (6) Hyponatremia Status: Resolved Code(s): E87.1 - HYPO-OSMOLALITY AND HYPONATREMIA SNOMED Code(s): 91396855 (7) Humeral surgical neck fracture Status: Acute Code(s): S42.213A - UNSP DISP FX OF SURGICAL NECK OF UNSP HUMERUS, INIT SNOMED Code(s): 253641479 (8) Dehydration Status: Resolved Code(s): E86.0 - DEHYDRATION SNOMED Code(s): 66596082 (9) Hypomagnesemia Status: Acute Code(s): E83.42 - HYPOMAGNESEMIA SNOMED Code(s): 320879870 (10) Leukocytosis Status: Acute Code(s): D72.829 - ELEVATED WHITE BLOOD CELL COUNT, UNSPECIFIED SNOMED Code(s): 887077566 (11) Light smoker Status: Chronic (12) Chronic obstructive pulmonary disease Status: Chronic Code(s): J44.9 - CHRONIC OBSTRUCTIVE PULMONARY DISEASE, UNSPECIFIED SNOMED Code(s): 18420750 (13) Constipation Status: Acute Code(s): K59.00 - CONSTIPATION, UNSPECIFIED SNOMED Code(s): 11736407 Plan: Metabolic encephalopathy: Resolved. Cogntive status at baseline. Electrolytes Sodium/K+/Ca++ normalized. I will drop K+ from 40meq BID with meals to 20meq with meals. Continue HCTZ containing BP med for now. - CBC/CMP/CK am 05/08/18. Rhabdomyolysis/Elevated CK/CKMB: Levels have improved but seem to be mildly increasing/decreasing. - Await phys therapy/OT therapy. Ideally place into swing bed. - Continue inpatient status until above is decided. - Fluid replacement to increase to 100ml/hour - CK 05/08/18 - Electrolyte replacement as needed - telemetry while inpatient - Strict I+O while inpatient Humerus Fracture: Limit mobility/movement. Still minimal benefit to additional imaging at this time. no obvious hematoma, resolving ecchymosis. no obvious/ active bleed. F/u ortho as Outpatient - Would like therapy to see. Leukocytosis: Emesis x 2 05/04/18, no further emesis. On Steroids, held yesterday but did get a dose in am. WBC with neutrophilia persists. NO e/o infection, no pain other than arm. Consider repeat CT abdomen. Breathing is stable. Still Suspect demarination. - Repeat CBC in am 05/08/18. Hypokalemia: Resolved. We will continue to utilize oral therapy today. Cut back to 20 BID. - REpeat CMP 05/08/18 - Monitor mg++, repeat 05/08/18. continue oral replacement - Continue HCTZ, will monitor for now. Hypotension: Resolved. BP ~157-158/81-82. I will increase coreg 6.25 BID. - REsume meds as needed. - Monitor - I+O -telemetry - NO BP checks/draws left arm due to fracture. Anemia: 7.9 to 9.5 to 10.0 now does support dilutional/contraction effect. - Continue to hold iron PO - Hemocult with BM. - CBC am 05/08/18. - Type cross/held 1 unit released today. Hypomagnesemia: Mild, replacing PO. - Mag Oxide 400mg 1 PO BID. Hyponatremia: Resolved. Monitor. - Repeat CMP 05/08/18. Pseudohypocalcemia: Resolved. Monitor. - CMP 05/08/18. Elevated Glucose: Urine GLucose +. Serum glucose elevated as well. A1C normal. Monitor. Transaminitis: Elevated AST but improving. We will continue to monitor. ALT normal. - CMP 05/08/18 Tobacco: Tobacco Cessation discussed today for 2 minutes. We reviewed lifestyle choices and discussed quitting. Ready to quit status discussed. The risks and hazards of continued tobacco abuse were discussed with the patient today and total tobacco cessation as recommended. It was clearly and unambiguously explained that continued tobacco usage will adversely affect overall morbidity and mortality of the patient. Patient was informed that tobacco use can lead to numerous cancers, worsening of cardiovascular and pulmonary systems and that lung damage is often permanent and irreversible. I advised the patient to inform me if any further assistance is requested, as we can offer counseling services, nicotine replacement inhaled, patch, lozenge, gum , or prescription medications to include Chantix or Wellbutrin for assistance. I will reassess the interest in tobacco cessation at the next and all subsequent visits. Has not craved while in hospital. Declined patches/ replacement. Constipation: She did not want anything for his. Feels fine, notes she goes through this. OFfered miralax, declind. Diet: Regular DVT PROPHY: SUSHIL/SCD. She is on aggrenox, i will continue this for now. Monitor CBC> Pain: [place] TID daily 7.5mg/325mg to continue. R/B/A d/w patient. Code status: DNR Disposition: I will continue to fluid hydrate, increase pace to 100/hour, replace electrolyte issues as indicated and work to reduce the CK/CKMB and to maintain the sodium, mg++, K+. Sodium is baseline, calcium is baseline. No further need for hypertonic saline after 05/03/18. Mg replaced. K+ being replaced. She remains stable on tele, BP looks okay to slightly high, resuming home BP meds, no further PVC on tele after resumed BB. Goal keep BP 120-150/70- 90. She appears to have improved regarding vitals/tele/mood. Encephalopathy resolved, mentation remains baseline. Adamant NO CORRECTION. She has home ADUS, [facility] but I feel SNF vs Swing to be best for her. See what PT/OT note today. She has resolving bruising. Pain is reasonably controlled with norco TID. She is tolerating meals, good uout. No BM so far. Hgb better today with decreased rate of fluids, CK still elevated but better, CKMB overall down but appears to be up and down. >35 minutes spent rounding on this patient discussing with nursing, reviewing labs, talking with Radha Mikael Daughter/ POA. She continues to meet inpatient criteria with admission to [facility]. Would like to place into SWING for rehab with known shoulder fracture non surgical at this time.
[2018-05-06] MEDS ORDERED: COREG PO SCH (08:00)
[2018-05-06] MEDS: AGGRENOX CAPSULE PO SCH (08:23)
[2018-05-06] MEDS: REQUIP PO SCH (08:23)
[2018-05-06] MEDS: K-DUR PO SCH (08:23)
[2018-05-06] MEDS: NORCO 7.5-325 PO SCH (08:23)
[2018-05-06] MEDS: NORVASC PO SCH (08:24)
[2018-05-06] MEDS: HYZAAR 50-12.5 MG TAB PO SCH (08:24)
[2018-05-06] MEDS: MAG-OX PO SCH (08:24)
[2018-05-06] MEDS: SYMBICORT 80-4.5 MCG INHALER IH SCH (08:24)
[2018-05-06] MEDS: SPIRIVA IH SCH (08:24)
[2018-05-06] MEDS: NEURONTIN PO SCH (08:24)
[2018-05-06] MEDS: FLONASE NAS SCH (08:25)
[2018-05-06] MEDS: ASTELIN 0.1% NAS SCH (08:25)
[2018-05-06] MEDS: IPRATROPIUM BROMIDE 0.06% NS SCH (08:29)
--- NOTE | 2018-05-06 10:13 | RS.PTINEVL ---
Subjective - Patient information Date of Evaluation: 05/06/18 Date of Arrival on Unit: 05/03/18 Admitted From:: Home Diagnosis: fx L humerus s/p recent fall, hypokalemia, hyponatremia, weakness Usual Living Arrangement: Alone Living Arrangement Comments: lives alone, however family has been staying with her since she suffered the fall last sunday. Home Environment: House, Stairs (few), Rail Medical History: Hypertension, COPD, Arthritis Medical History Comments:: osteoporosis, hiatal hernia, LATEX ALLERGY?: No Surgical History: Cholecystectomy Surgical History Comments:: appey Medications: see chart Subjective Information/ Patient Comments:: pt reports that she is feeling better today. States she took a walk in the [place] with her daughter this am. - Level of function Prior to this admission, the patient could do the following:: Independent Selfcare, Independent ADL's, Independent Ambulation, Participated in Social Activities Outside home Abilities prior to this admission: prior to shld fx pt was independent with ADL's and independent with amb and occasionally used rwx. Current Level of Function: Partially Dependent Current Equipment Used at Home: Oxygen at home through [employer]. Rollator. Shower chair. Power Chair. Nebulizer Pain Assessement - Location L arm Description: Sharp, Aching Intensity: 9 Pain Behavior: Rubbing Site, Facial Grimacing Pain Aggravating Factors: Changing Position, Walking Pain Alleviating Factors: Medication Interventions - Objective Patient Orientation: Person, Place, Time, Situation Current Interventions: IV's, Oxygen, Telemetry Observation: pt also with compression pumps to BLE Range of Motion - ROM Right Upper Extremity AROM: WFL's Left Upper Extremity AROM: Marked limitation (L shld/elbow not tested due to LUE in sling due to fx, wrist and hand WFL's) Right Lower Extremity AROM: WFL's Left Lower Extremity AROM: WFL's Muscle Strength - Muscle Strength Right Upper Extremity Strength: Mild Weakness (shld flex 4/5, elbow flex/ext 4/5 ,) Left Upper Extremity Strength: Severe Weakness (n/t due to fx) Right Lower Extremity Strength: Mild Weakness (hip flex 4-/5, knee flex/ext 4/5 , ankle DF/PF 4/5) Left Lower Extremity Strength: Mild Weakness (hip flex 4-/5, knee flex/ext 4/5, ankle DF/PF 4/5) Sensation - Sensation Right Upper Extremity Sensation: Intact/Normal Left Upper Extremity Sensation: Intact/Normal Right Lower Extremity Sensation: Intact/Normal Left Lower Extremity Sensation: Intact/Normal Palpation Palpation Findings: Tenderness Comments:: L shld due to fx Balance - Sitting Balance and Reactions Static Sitting Balance: Good Dynamic Sitting Balance: Fair - Standing Balance and Reactions Static Standing Balance: Poor Dynamic Standing Balance: Poor Standing Equilibrium Reactions: Delayed Left, Delayed Right Standing Protective Reactions: Delayed Left, Delayed Right Functional Mobility - Bed Mobility Rolling R/L: Min Assist Supine to Sit: CGA, Min Assist - Transfers Sit to Stand: CGA Stand to Sit: CGA - Safety Awareness Safety Awareness: Fair AMMON INDEX SCORE: n/a Ambulation - Ambulation Assistive Device Used: Reyes Walker Orthotic/Prosthetic Device: No Distance: 65ft Assistance needed with Ambulation: Min Assist Quality of Ambulation: pt amb with min to CGA x 1 +1 for IV/O2 Gait Deviations: Forward posture, Short stride Ambulation Comments: pt amb with narrow HINA with near scissoring at times, pt is able to correct with verbal cues. Factors Affecting Ambulation: Decreased Balance, Breathing/O2 Saturation, Pain, Weakness, Decreased ROM, Decreased Safety, Limited Endurance Treatment time - Time with patient Length of Evaluation: 24 Total treatment time: 28 Patient Education - Education Patient Education: Activity Modification, Education of Plan of Care Teaching Recipient: Patient Teaching Methods: Discussion Comments: discussion with patient regarding POC Assessment - Assessment Problem List:: Decreased level of function, Requires training/education, Decreased safety/Risk of falls, Weakness, Pain limits previous level of function Rehab Potential: Good Further Therapy Indicated?: Yes Candidate for Swing Bed for Therapy Services?: Feel pt may be candidate for short term swing bed for therapy with focus on amb with reyes walker, balance and transfers. Feel pt may still require assist at home at ar due to L humerus fx. Evaluation Complexity: HISTORY: Medium (COPD, OA, HTN, CAD, osteoporosis, L humerus fx), EXAM OF BODY SYSTEMS: Medium (pain, ROM, strength, gait, balance), CLINICAL PRESENTATION: Medium (evolving), CLINICAL DECISION MAKING: Medium Short Term Goals GOAL #1: pt demonstrate independence with rolling and bridging in bed. Goal to be met by: 05/08/18 GOAL #2: pt transfer sup to/from sit CGA Goal to be met by: 05/08/18 GOAL #3: Sit to/from stand CGA Goal to be met by: 05/08/18 GOAL #4: pt amb 120ft with hemiwalker with CGA x 1 Goal to be met by: 05/08/18 GOAL #5: Improve dyn stand balance fair Goal to be met by: 05/08/18 Nursing Home Goals GOAL #1: pt transfer sup to/from sit to/from stand SBA Goal to be met by: 05/11/18 GOAL #2: pt amb functional household distances with hemiwalker SBA to CGA Goal to be met by: 05/11/18 GOAL #3: pt ascend/descend 2-3 steps with HR CGA Goal to be met by: 05/11/18 Plan Plan of Care: Therapeutic EX, Therapeutic Activity Other:: gait training Frequency of Treatment: 1-2 X day, as tolerated Duration of Treatment: 1 Week Anticipated Discharge Destination: Home Treatment Diagnosis (ICD 10 Codes): R26.2 difficulty walking. R26.81 balance impaired. M62.81 weakness Has the Physician been added for Co-signature?: Yes
--- NOTE | 2018-05-06 11:26 | PCM.DC ---
Final Diagnosis: All Active Problems Metabolic encephalopathy (Resolved) Rhabdomyolysis (Acute) Elevated CK-MB level (Acute) Humeral surgical neck fracture (Acute) Anemia (Acute on Chronic) Hypomagnesemia (Acute) Chronic obstructive pulmonary disease (Chronic) STABLE Leukocytosis (Acute) TIA (transient ischemic attack) (Chronic/Historical) Light smoker (Chronic) Constipation (Acute) Hyponatremia (RESOLVED/Corrected). Hypomagnesemia (Acute) Hypocalcemia (RESOLVED) Hypokalemia (Resolved) Falls (Chronic) Weakness (generalized) Decreased Balance Decreased functional mobility. (1) Rhabdomyolysis Status: Acute Code(s): M62.82 - RHABDOMYOLYSIS SNOMED Code(s): 869864538 Qualifiers: Rhabdomyolysis type: traumatic Encounter type: subsequent encounter Qualified Code(s): T79.6XXD - Traumatic ischemia of muscle, subsequent encounter (2) Elevated CK-MB level Status: Acute Code(s): R74.8 - ABNORMAL LEVELS OF OTHER SERUM ENZYMES SNOMED Code(s): 926162141 (3) Hypocalcemia Status: Resolved Code(s): E83.51 - HYPOCALCEMIA SNOMED Code(s): 9783977 (4) Anemia Status: Chronic Code(s): D64.9 - ANEMIA, UNSPECIFIED SNOMED Code(s): 678833263 Qualifiers: Anemia type: unspecified type Qualified Code(s): D64.9 - Anemia, unspecified (5) Hypokalemia Status: Resolved Code(s): E87.6 - HYPOKALEMIA SNOMED Code(s): 08128015 (6) Hyponatremia Status: Resolved Code(s): E87.1 - HYPO-OSMOLALITY AND HYPONATREMIA SNOMED Code(s): 57845424 (7) Humeral surgical neck fracture Status: Acute Code(s): S42.213A - UNSP DISP FX OF SURGICAL NECK OF UNSP HUMERUS, INIT SNOMED Code(s): 071120201 (8) Dehydration Status: Resolved Code(s): E86.0 - DEHYDRATION SNOMED Code(s): 47973578 (9) Hypomagnesemia Status: Acute Code(s): E83.42 - HYPOMAGNESEMIA SNOMED Code(s): 662530717 (10) Leukocytosis Status: Acute Code(s): D72.829 - ELEVATED WHITE BLOOD CELL COUNT, UNSPECIFIED SNOMED Code(s): 967410912, 073926181 (11) Light smoker Status: Chronic (12) Chronic obstructive pulmonary disease Status: Chronic Code(s): J44.9 - CHRONIC OBSTRUCTIVE PULMONARY DISEASE, UNSPECIFIED SNOMED Code(s): 92120656 (13) Constipation Status: Acute Code(s): K59.00 - CONSTIPATION, UNSPECIFIED SNOMED Code(s): 03995946 Reason for Hospitalization: Fall 04/29/18 Surgical neck humerus fracture left. Decreased po intake, malnutrition, weakness, cognitive decline. PResented w/ hypokalemia, hypocalcemia, hypomag, hyponatremia, anemia, low protein, hypotensive. IMproved through stay. Prognosis at Discharge: Stable/improved, D/C to [facility] for PHYS THERAPY/OCC THERAPY, MONITOR ELECTROLYTES. Condition at Discharge: Strength is better. Hypocalcemia/hyponatremia/hypokalemia resolved. Anemia better, hypomagnesemia unchanged. Pain in left shoulder unchanged. COgnitive awareness improved. Chronic COPD stable. Chronic tobacco use, not interested in cig, declined replacement while in hospital. History of TIA, no worsening. Moves all 4, cognition improved. No S/Sx of worsening stroke like symptoms. Medications at Discharge: Ambulatory Orders Medication Instructions Recorded Budesonide/Formoterol Fumarate 2 puff IH BID 06/14/15 [Symbicort 80-4.5 Mcg Inhaler] Hydrocodone/Acetaminophen [[place] 1 each PO Q6HR 10/30/16 7.5-325 Tablet] Melatonin/Pyridoxine HCl (B6) 10 mg PO BEDTIME 07/20/17 [Melatonin 10 mg Tablet] Amlodipine Besylate [Norvasc] 5 mg PO DAILY tablet 05/06/18 Budesonide/Formoterol Fumarate 2 puff IH BID inh 05/06/18 [Symbicort 80-4.5 Mcg Inhaler] Carvedilol [Coreg] 6.25 mg PO BIDWM tablet 05/06/18 Magnesium Oxide [Mag-Ox] 400 mg PO BID 30 Days #60 tablet 05/06/18 Potassium Chloride [K-Dur] 20 meq PO BID 30 Days #60 tab 05/06/18 Lab/Diagnostics: Laboratory Last Values WBC 18.37 K/ul (4.6-10.2) H 05/06/18 05:45 RBC 2.87 10^6/ul (4.20-5.40) L 05/06/18 05:45 Hgb 10.0 g/dl (12.0-16.0) L 05/06/18 05:45 Hct 29.8 % (37.0-47.0) L 05/06/18 05:45 MCV 103.8 fl (81.0-99.0) H 05/06/18 05:45 MCH 34.8 pg (27.0-31.0) H 05/06/18 05:45 MCHC 33.6 (31.8-35.4) 05/06/18 05:45 RDW Coeff of Lynette 12.4 % (11.6-14.8) 05/06/18 05:45 Plt Count 427 10^3/uL (140-440) 05/06/18 05:45 Immature Gran % (Auto) 1.5 % (0.0-5.0) 05/06/18 05:45 Neut % (Auto) 73.2 05/06/18 05:45 Lymph % (Auto) 15.0 (10.0-50.0) 05/06/18 05:45 [place] % (Auto) 10.1 (0-10) H 05/06/18 05:45 Eos % (Auto) 0.0 % (0.0-7.0) 05/06/18 05:45 Baso % (Auto) 0.2 % (0.0-3.0) 05/06/18 05:45 Reticulocyte % (Auto) 2.45 % 05/03/18 09:35 Immature Gran # (Auto) 0.3 (0.0-1.0) 05/06/18 05:45 Neut # (Auto) 13.4 K/ul (2.0-6.9) H 05/06/18 05:45 Lymph # (Auto) 2.8 K/uL (0.60-3.4) 05/06/18 05:45 [place] # (Auto) 1.9 K/uL (0.4-2.0) 05/06/18 05:45 Eos # (Auto) 0.0 K/ul (0.0-0.7) 05/06/18 05:45 Baso # (Auto) 0.0 K/uL (0-0.2) 05/06/18 05:45 Absolute Retic 0.0671 05/03/18 09:35 Retic Hgb Equivalent 37.6 05/03/18 09:35 PT 9.7 SEC (9.3-11.0) 05/03/18 09:35 INR 0.97 SI (0.0-3.9) 05/03/18 09:35 APTT 29.7 SEC (23.9-40.0) 05/03/18 09:35 Puncture Site Rbrach 05/03/18 09:27 O2 Saturation 97.0 % (95-100) 05/03/18 09:27 ABG pH 7.445 (7.35-7.45) 05/03/18 09:27 ABG pCO2 54.5 mmHg (35-45) H 05/03/18 09:27 ABG pO2 88.0 mmHg (85-100) 05/03/18 09:27 ABG HCO3 37.5 (22.0-26.0) H 05/03/18 09:27 ABG Total CO2 39 (22.0-28.0) H 05/03/18 09:27 ABG Base Excess 13 (-2.0-2.0) H 05/03/18 09:27 O2 Delivery Device Nc 05/03/18 09:27 Oxygen Liter Flow 3.00 05/03/18 09:27 Sodium 133.6 mmol/L (134.5-145) L 05/06/18 05:45 Potassium 4.65 mmol/L (3.5-5.1) 05/06/18 05:45 Chloride 94.5 mmol/L (98-107) L 05/06/18 05:45 Carbon Dioxide 33.1 mmol/L (22-30.0) H 05/06/18 05:45 Anion Gap 10.65 05/06/18 05:45 BUN 5.2 mg/dL (7-17) L 05/06/18 05:45 Creatinine 0.51 mg/dL (0.60-1.30) L 05/06/18 05:45 Estimated GFR (MDRD) 119.00 mL/min 05/06/18 05:45 BUN/Creatinine Ratio 10.19 05/06/18 05:45 Glucose 86.0 mg/dL (74-106) 05/06/18 05:45 Hemoglobin A1c 5.24 (4.0-6.0) 05/06/18 05:45 Lactic Acid 1.08 mmol/L (0.7-2.1) 05/03/18 11:25 Calcium 8.88 mg/dL (8.4-10.2) 05/06/18 05:45 Magnesium 1.59 mg/dL (1.6-2.3) L 05/04/18 14:05 Iron 30.2 ug/dL (37-170) L 05/03/18 09:35 TIBC 169 ug/dL (261-497) L 05/03/18 09:35 % Saturation 18 % 05/03/18 09:35 Transferrin 118 mg/dL (200-370) L 05/03/18 09:35 Ferritin 985.00 ng/mL (11.1-264.0) H 05/03/18 09:35 Total Bilirubin 0.43 mg/dL (0.2-1.3) 05/06/18 05:45 AST 53.9 U/L (14-36) H 05/06/18 05:45 ALT 30.1 U/L (0-35) 05/06/18 05:45 Alkaline Phosphatase 63.4 U/L (53-141) 05/06/18 05:45 Total Creatine Kinase 1115.4 U/L (30-135) H 05/06/18 05:45 CK-MB (CK-2) 5.320 ng/ml (0.0-2.38) H* 05/06/18 05:45 CK-MB (CK-2) % 0.4700 05/06/18 05:45 Troponin I 0.014 ng/ml (0.0000-0.120) 05/04/18 03:25 Total Protein 6.28 g/dL (6.3-8.2) L 05/06/18 05:45 Albumin 3.56 g/dL (3.5-5.0) 05/06/18 05:45 Globulin 2.72 05/06/18 05:45 Albumin/Globulin Ratio 1.30 05/06/18 05:45 Amylase 37.7 U/L (30-110) 05/03/18 10:00 Lipase 29.3 U/L (23-300) 05/03/18 10:00 Vitamin B12 973 pg/mL (239-931) H 05/03/18 09:35 Folate 5.29 ng/mL (2.76-) 05/03/18 09:35 Procalcitonin 0.27 ng/mL (0.09) 05/03/18 09:35 TSH 0.725 uIU/L (0.465-4.68) 05/03/18 09:35 Free T4 1.25 ng/dL (0.78-2.19) 05/03/18 09:35 Urine Color Yellow (YELLOW) 05/04/18 15:47 Urine Clarity Clear (CLEAR) 05/04/18 15:47 Urine pH 6.5 (5-9) 05/04/18 15:47 Ur Specific [place] 1.020 (1.005-1.030) 05/04/18 15:47 Urine Protein Negative (NEGATIVE) 05/04/18 15:47 Urine Glucose (UA) Trace (NEGATIVE) 05/04/18 15:47 Urine Ketones Negative (NEGATIVE) 05/04/18 15:47 Urine Blood Negative (NEGATIVE) 05/04/18 15:47 Urine Nitrite Negative (NEGATIVE) 05/04/18 15:47 Urine Bilirubin Negative (NEGATIVE) 05/04/18 15:47 Urine Urobilinogen 0.2 (0.2) 05/04/18 15:47 Ur Leukocyte Esterase Negative (NEGATIVE) 05/04/18 15:47 Urine Microscopic RBC 0-2 (0-2) 05/03/18 13:00 Urine Microscopic WBC 30-50 (0-2) 05/03/18 13:00 Ur Squamous Epith Cells 5-10 (0-5) 05/03/18 13:00 Influ A Molecular Assay Negative by naat (NEGATIVE) 05/03/18 09:35 Influ B Molecular Assay Negative by naat (NEGATIVE) 05/03/18 09:35 Blood Type A POSITIVE 05/04/18 18:45 Antibody Screen Negative 05/04/18 18:45 ALT/AST Trends 05/03/18 05/03/18 05/04/18 Range/Units 09:35 19:40 03:25 AST 84.8 H 85.1 H 91.1 H (14-36) U/L ALT 25.9 25.1 28.4 (0-35) U/L 05/04/18 05/05/18 05/06/18 Range/Units 14:05 04:45 05:45 AST 76.5 H 71.4 H 53.9 H (14-36) U/L ALT 26.1 31.6 30.1 (0-35) U/L Na/K Trends 05/03/18 05/03/18 05/03/18 Range/Units 09:35 16:04 19:40 Sodium 126.2 L 127.4 L 126.5 L (134.5-145) mmol/L Potassium 2.87 L 2.90 L 2.97 L (3.5-5.1) mmol/L 05/03/18 05/04/18 05/04/18 Range/Units 23:20 03:25 14:05 Sodium 130.8 L 131.0 L 130.7 L (134.5-145) mmol/L Potassium 3.07 L 3.42 L (3.5-5.1) mmol/L 05/05/18 05/06/18 Range/Units 04:45 05:45 Sodium 131.8 L 133.6 L (134.5-145) mmol/L Potassium 3.96 4.65 (3.5-5.1) mmol/L CPK/Troponin I Trends 05/03/18 05/03/18 05/04/18 Range/Units 09:35 19:40 03:25 Total Creatine Kinase 1504.1 H 2306.0 H 2423.3 H (30-135) U/L CK-MB (CK-2) 13.400 H* 11.700 H* 9.230 H* (0.0-2.38) ng/ml CK-MB (CK-2) % 0.8900 0.5000 0.3800 Troponin I 0.023 0.019 0.014 (0.0000-0.120) ng/ml 05/04/18 05/04/18 05/05/18 Range/Units 06:00 14:05 04:45 Total Creatine Kinase 1472.9 H 1584.8 H 1573.4 H (30-135) U/L CK-MB (CK-2) 6.620 H* 5.610 H* 5.040 H* (0.0-2.38) ng/ml CK-MB (CK-2) % 0.4400 0.3500 0.3200 Troponin I (0.0000-0.120) ng/ml 05/06/18 Range/Units 05:45 Total Creatine Kinase 1115.4 H (30-135) U/L CK-MB (CK-2) 5.320 H* (0.0-2.38) ng/ml CK-MB (CK-2) % 0.4700 Troponin I (0.0000-0.120) ng/ml Amylase/Lipase Trends 05/03/18 Range/Units 10:00 Amylase 37.7 (30-110) U/L Lipase 29.3 (23-300) U/L Urine culture: Mixed shanti. Shoulder X-ray 04/29/18 "Comminuted surgical neck fx is present. Displacement 6mm. No GH dislocations" Abdominal/Pelvis CT w/o: Inflammation in pancreatic head distal aspect of the stomach. Correlate with pancreatic enzymes for possible pancreatitis. Enzymes evaluated and negative. Family does not think they want oncology Moderate hiatal hernia. Trace pleural effusion. CT T spine, no acute osseous abnl of Tspine CT C Spine: No acute fracture or listhesis of spine. DDD narrowing height and osteophyte formation. CT Chest Severely comminuted fracture of the proximal left humerus. No intrathoracic process. Trace pleural effusion. Moderate hiatal hernia. CAD, emphsema. CT LSPINE: No acute fracture, multiple level DDD. Deformiaty with kyphoplasty/ vertebral plasty changes. CT Head: No acute process, chronic small vessel disease. Education Provided to Patient and Family: 1. Pt/OT d/w patient 2. D/C home in 1-2 weeks after we make sure that she is eating, electrolytes correct, she can return to living alone at home. 3. D/C to [facility] today. She will have PT/OT while here. [facility] at discharge for home. 4. Keep appt with ortho 5. Opiates education: We discussed opiates as a form of pain medication to act as an adjunct to Tylenol, NSAIDS, steroids, topical rubs such as icyhot, bengay , biofreeze, aspercreme, cool/warm compresses, stretching/exercising etc. We discussed [place] pain cream. Discussed to consider f/u with pain management to discuss other options. Opiates are not meant to eliminate pain but rather are designed to facilitate function and improve ADL. We discussed ADL today, discussed goals of therapy. We talked specifically about R/B/A to opiates, to overuse of opiates and dangers of using opiates even at recommended levels. We discussed frequency of visits depends on history and is individualized to the patient. We typically will see patients at least every 1- 3 months for focused physical exam to make sure the medical course is stable. There is no published guideline for UDS. This is to reduce diversion, to make sure patient is actually taking them and not using illegal drugs. Random UDS are utilized to reduce chances of cheating the system. Patient can expect minimum of 2 per year scheduled and or random and if any compliance questions are considered. Discussed multiple rx can be given but again case by case basis. There will be no early fills, no after hours fills. We reviewed the level of pain, ADL, any adverse effects, and aberrant drug-related behaviors. We also reviewed personal and family history of substance abuse and discussed appropriate destruction of unwanted Rx. Reviewed risks of tolerance/dependence/ addiction. These medications are dangerous and any abnormal behavior may limit our ability to continue these agents. 6. Tobacco: Tobacco Cessation discussed today for 2 minutes. We reviewed lifestyle choices and discussed quitting. Ready to quit status discussed. The risks and hazards of continued tobacco abuse were discussed with the patient today and total tobacco cessation as recommended. It was clearly and unambiguously explained that continued tobacco usage will adversely affect overall morbidity and mortality of the patient. Patient was informed that tobacco use can lead to numerous cancers, worsening of cardiovascular and pulmonary systems and that lung damage is often permanent and irreversible. I advised the patient to inform me if any further assistance is requested, as we can offer counseling services, nicotine replacement inhaled, patch, lozenge, gum , or prescription medications to include Chantix or Wellbutrin for assistance. I will reassess the interest in tobacco cessation at the next and all subsequent visits. 7. COPD stable. 8. New meds KDur 20meq BID 9. Mag ox 400 BID PO Follow-ups: D/C To [facility] today. I will see again tomorrow 05/07/18. Disposition: TSF OTHER Hospital Course: 72 yo female Patient presented to ER 04/29/18 with arm pain post fall and was d/ c with comminuted fracture of humerus. Met with ortho, felt not surgical and she remained at home. She represented to ED on 05/03/18 at 09:00 w/ entire family. They reported weakness generalized, altered mental status, confused, history of fall on sunday with left shoulder fracture. Radiology report comminuted surgical neck fracture is present. Displacement measuring up to 6mm. No GH dislocation. Reviewed ER note from 04/29/18. Arrived in WC 22:[address] Steele. Shoulder pain as main c/o. S/P fall, found down unknown period of time, friend found her. Arthritic changes, joint pain, current every day smoker. Left humeral neck fx noted. Toradol 30 given to aptient. Vitals in ER 97.6, pulse 70, RR 20, BP 137/76, Pulse 98. No labs were collected. 05/03/18 she had worsening pain in her LUE, fall 5 days prior, no further falls. She did meet with DR. Glaser and arm is in sling but not surgical. Pain in neck/back/ shoulder 10/10. Worse with movement, better with rest. Limited ability to get rest due to the pain. GCS [address] of abd/pelvis, TSPINE, CSPINE, LSPINE and head were collected in ER. Abdominal/Pelvis CT w/o: Inflammation in pancreatic head distal aspect of the stomach. Correlate with pancreatic enzymes for possible pancreatitis. Enzymes evaluated and negative. Trace pleural effusion. CT T spine, no acute osseous abnl of Tspine CT C Spine: No acute fracture or listhesis of spine. DDD narrowing height and osteophyte formation. CT Chest Severely comminuted fracture of the proximal left humerus. No intrathoracic process. Trace pleural effusion. Moderate hiatal hernia. CAD , emphsema. CT LSPINE: No acute fracture, multiple level DDD. Deformity with kyphoplasty/vertebral plasty changes. CT Head: No acute process, chronic small vessel disease. Historty of COPD, chronic tobacci, anemia, arhtritis, HTN, CAD, asthma, right arm fracture, cataracts, chronic [place], depression, hiatal hernia, history of GERD on PPI, Hyperlipidemia, hyperthyroidism, peptic ulcer, RLS, DAINA. Markedly low BP initially <50SBP reported per DR. Flores 05/03/18 09:01 97.6 temp, pulse 106, BP 99/61, pulse 94. repeat 10:10 95/45. BP was 114/83 at 12:35. Labs showed WBC 16.50, Hgb 9.5, Hct 26.8, pulse 307. Sodium 126.2, K + 2.87, CO2 78.8, CO2 40.1, BUN 15.9, Cr 0.89, Glucose 107.3. MCV 100.0, RDW low at 11.3. Neutrophila ABG: Primary metabolic alkalosis w compensated respiratory acidosis. Calcium low at 8.28, AST 84.8 and elevated, ALT normal. Total CK was 104.1 and markedly elevated, CKMB 2 was 13.400. Albumin low at 3.09. PT 9.7, INR 0.97, ptt 29.7. Procalcitionin 0.27, Free T4 1.25, TSH was 0.725. Lactic acid was negaive 1.08. Amylase and lipase checked and negative 37.7, 29.3. Vitamin B12 was checked and 973, folate 5.29. Ferritin 985.00, Iron 30.2, TIBC low at 169. These do not support Fe def anemia, instead anemia chronic disease. Iron was stopped. Flu was negative. Dr. Flores and I discussed case. He contacted [facility] and noted the pancreatic finding and they did not feel that they could accept the patient and turned down admit. I was contacted around 13:10 and I went to [facility]2 at 3:30 pm to start talking with her and found her to be conversant, tolerating 2L NC and breathing okay. Left arm/ shoulder is in sling. She was confused, did not know day of week, month was close but not correct (end of April despite being may), and she thought it was 1969. known at 1945. Could not spell WORLD backwards, could not do Serial 3, animal naming was weak. Trouble with immediate and remote recall. She has not been doign well since fall per daughter BRYCE Johnson. Trouble sitting, cannot walk on her own. All of this has been since sunday, progressing unto 05/03/09 admit. She was unsteady, unable to ambulate. Noted abdominal pain, left arm pain, cervical pain, mid back pain. No urinary symptoms, normal amount/quantity. No freq/no hesitancy, no burning. Intermittent nausea. No blood from vagina. no blood in stool per family/POA. They have been trying to get emergency alert. Charisse Nicole has been contacted this week by us. Due to re-eval patient, still has not called. No SOA, no Cough, no sore throat, no rhinorrhea, no [place]. No additional complaints at admit. She noted mild dizziness, vitals reviwed and hypotensive. Family notes that she has not had her coreg as it was not recently refilled. Her lungs were stable, she cannot smoke, has not smoked for prior 2 days. Offered nicoderm and declined. Limited PO intake. She has prominent bruising about the left shoulder anterior chest, small bruise right anterior chest. Family has noted 1/4 fish steak, otherwise few bites of bread. She lives alone. She is DNR. She has home O2 regularly, we have contacted [facility] to help with home health. She is not interested in NH at all. Hospital Day 2: Rounded 08:15 05/04/18. Patient awake eating breakfast and c/o poor taste, wanted /craved more salt. Discussed with her limitations to salt, BP improved. REviewed overnight tele and she was mostly SR with some PVC/PAC. She has had a good diuresis, good Uout w/ 2 unmeasured voids yesterday and 1360 out measured today. Pain at a 6/10 aching throbbing and worse with any movement in the left lateral/anterior upper arm. REviewed ON nurses notes, mostly uneventful night. She was given 3% NS at my direction over 15 minutes and her sodium improved from 126.5 to 130.8 as hoped. I repeated a CBC last night and her WBC dropped from 16.5 to 11.56 her Hgb dropped from 9.5 to 8.8 and plt dropped 307 to 265 suggestive of dilutional effect. This am her CBC showed 11.9 WBC (16.5 admit), Hgb 8.5 (9.5 admit) plt 297 (307 admit). CMP this am sodium is now up to 131, K + is up to 3.07, BUN 7, Cr 0.50 and her calcium is stable at 8.03. Based on albumin, this continues to correct to normal. CKMB has steadily declind from 11.7 to 9.2 to 6.620 this am. CK total started at 1504 increased to 2306, increased further to 2423 before dropping to 1472 this am. Will check again at 1pm with CBC/CMP/UA/magnesium. She had some discomfort with the 3% NS, no c/o with the K+ in the fluid. She is getting K+ in fluid and PO. She is getting Mg+ + PO. BP has perked up, tele looks good, she is eating and generally feels better this am. She and I talked about home status and that likely she was dehydrated/malnourished over last 1 week and this is likely the culprit. I have recommended to nurses, after discussing case with them this am, we will resume norvasc if BP >150/90. Goal for today is to keep her 120-150 SBP. DBP was in low 70's and fine. Reviewed available ON notes, she has minimal c/o this am except arm pain. Appetite is better, breathing is stable, not interested in tobacco despite prolonged multiple year/decade smoking history. Not interested in tobacco cessation aids at this time. SCD in place. Still using aggrenox. No BM so far. She has dropped about 1 G of Hgb suggestive of dilution. No worsening SOA. Vitals reviewed with her this am, remains afebrile , BP is better, HR is stable, O2 is stable and RR is stable. Suspect if she continues to improve, tolerate PO we may d/c tomorrow. Hospital Day 3 Admitted for 1 week post fall, fracture of neck of humerus, dehydration, rhabdomyelysis, hypokalemia, hyponatremia, hypocalcemia, hypomagnesemia, anemia , leukocytosis, elevated AST, chronic COPD and ?change on CT abdomen. She has been on NS + K at 125ml/hour up until 18405/04/18 when I changed this to 75ml/ hour. Received call at 18:13 last night that patient hgb dropped to 7.9. It had steadily decreased with fluid hydration and dropped low as did the BUN suggesting overhydration. I backed fluids down and checked labs again today. WBC back up to 16.86, hgb from 7.9 to 9.5 plt up to 366. With dilutional effect resolved, the Blood work returned to near admit levels. I talked with nurse this am, it appeared that she had demargination. She did have #2 emesis after OJ in am yesterday, pt noting that she she responds to OJ like this. I discussed no more OJ while in hospital, they noted that this was reasonable. Nurse Linda also noted that patient was on steroids and asked if that could affect this, I noted it could, was pleased with comment and then I discussed with team to d/c the steroids. Urine culture so far normal shanti/mixed, no acute process. Emesis x 2 yesterday, no further emesis. No BM while in hospital. She has had 2810 ml out yesterday, 5 voids. Weight stable. CK bumped back up from 1472.9 to 1584.8 yesterday and is now back to 1573.4. CK MB has continued to decrease throughout stay. AST improved and has decreased from 91.1 to 76.5 to 71.4. Albumin is back up to 3.56. Calcium has normalized to 8.77 (correction levels). Mg remains low at 1.59 but correcting orally. SG on urine recently 1.020 with small glucose. Her glucose has been up a little through stay but <200 and I will thus not use medications at this point. She has continued to do fine sans coreg/norvasc. She has had some PVC on tele but remains SR. We resumed coreg at 3.125 tablet BID. Her CMP this am showed improvement in sodium from 130.7 to 131.8 and this is now normal. Her K+ is at 3.96 and much better by >1.0 since admit. Her BUN was slow at 2.2 and cr 0.48. Glucose 139.8 now. Overall she felt better. Denied interest in NH, discussed Swing status in our hospital. I talked with patient w/ nurse Linda present and talked with Radha Johnson over phone in room. Complete conversation about this process, about care, about patient health this am >20 minutes. Patient is eating, does not like taste of food. We have stopped the steroids, I will have no further blood draw today, see labs in am tomorrow and discuss disposition further. Discussed case with family and feel that swing is likely best option. She still rates her pain in left arm at 5-7/10. Bruising is resolving and worse. She has been OOB several times to use restroom. Discussed I want her out of bed as much as possible. SCD/SUSHIL in place, heel padding in place. Rolling regularly. No S/SX of infection. Lab parameters are improving and I think one more day to repeat CK/CKMB tomorrow would be good option. With her fracture/muscle damage this may be a prolonged course. With her not being a surgical candidate I believe that a SNF/S[facility] would be a good choice for her. Hospital Day 4 Day of D/C 05/06/18. Progress note completed for 05/06/18 (Summary of HPI) She was typed/cross and held. I released this blood now. I backed fluids down and checked labs again yesterday, and then again today. STeroids held yesterday , but she did get another dose. WBC increased from 16.86 yesterday to 18.37 today. Hgb is now up to 10 and plt up to 427. With dilutional effect resolved , she has labs similar to admit. I talked with nurse Linda again this am, it still appears that she has demargination. #2 emesis after OJ 05/04/18, no emesis since that point. Urine culture so far normal shanti/mixed, no acute process. CT chest was negative. CT abd had ? pancreatic process, enzymes were negative. No BM while in hospital. No documented I+O yesterday, just 6 voids. NO SOA, no chest pain, no URI symptoms, no cough, no [place], no vision changes, no c/o pain anywhere except left arm. Denied abd pain, N/V/D, no vaginal discharge, no urinary freq/hesitancy. Interestingly her total CK dropped from yesterday down to 1115.4 from 1573.4 but her CKMB increased from 5.040 to 5.320. AST continues to improve now at 53.9 (down fro 91.1 to 76.5, to 71.4) and ALT stable at 30.1. Calcium remains stable at 8.88. Albumin has increased to 3.56. Sodium is stable at 133.6. Her glucose had been up a little but her A1C was 5.24. BP has been up 157-158/81-81. I increased her coreg back to 6.25 BID. Her K+ is at 4.66. I will back her down to 20meq K+CL with meals from the 40. Overall this am she felt better. She has not had a BM, noted this am she does not have BM in hospital. Radha Youssef POA/Daughter present this am and we had a another lengthy talk about disposition noted SNF vs Swing status in our hospital. Phys therapy and OT to see her today. Patient is eating, does not like taste of food. Family brought her fish dinner and she ate it all. We have stopped the steroids, I will have no further blood draw today, we will consider next CBC/CMP 05/08/18 and CK. Monitor for fever. OOB as much as possible. Discussed case with family again today and feel that swing is likely best option. She still rates her pain in left arm at 5-7/10. Bruising is resolving and worse along chest but better along her arm. She has been OOB several times to use restroom, struggles to get up from commode per family. NOrmally uses walker at home. Discussed I want her out of bed as much as possible. SCD/SUSHIL in place, heel padding in place. Rolling regularly. No S/SX of infection. Lab parameters are being monitored. I have increased fluids from 75ml/hour to 100ml/hour. Phys therapy saw her, OT saw her and she was felt to be a good candidate for SWing bed status. hyponatremia, hypokalemia, hypocalcemia have all resolved. Anemia persists. Not iron def, continue to hold iron. Day of D/c physical exam: (see Progress note from 05/06/18 for further information ). Vital Signs - 24 hr 05/05/18 05/05/18 05/05/18 09:34 14:00 22:00 Temperature 98.4 F 97.8 F Pulse Rate 76 70 Respiratory 14 16 Rate Blood Pressure 129/84 157/81 H O2 Sat by Pulse 93 L 96 90 L Oximetry 05/06/18 05:18 Temperature 98.4 F Pulse Rate 74 Respiratory 18 Rate Blood Pressure 158/82 H O2 Sat by Pulse 96 Oximetry Constitutional: Appearance-No acute distress, Consistent with stated age, talks full sentences, hirsuitism along upper lip. Daughter Radha Youssef in room. Orientation- Oriented x 3, alert Build and Nutrition-[normal] General- Patient is pleasant and cooperative with the interview and exam, Ecchymosis prominently left chest, midline chest, now right chest and to right bicep, along the posterior aspect of tricep and entirety of bicep down to the antecubital fossa. Normal touch sense, normal temp sense and normal movement distal to elbow. Photo Graphics Librarian 5/5. No skin breakdown about buttock (Nurse Linda in room). No breakdown heels (padded). SCD in place. ENMT: Nasal mucosa- No bleeding noted and no ulcerations observed. [place], moist. Turbinates non boggy. Lips- normal color, moist without cracks/lesions Oral Cavity/Palate- hard/soft palate intact without lesions, oral mucosa pink and moist. Dentures in place, no oral lesions, Tongue normal midline. Oropharynx- no pharyngeal erythema, Uvula midline. No post nasal drip. No exudate. Salivary glands- Non tender to palpation CHEST/LUNG: Inspection- symmetric chest wall no pectus deformity. Normal effort , no distress, no use of accessory muscles. Palpation- nontender sternum, ribline. Ecchymosis along anterior chest and mostly along left pectoralis region, AC joint, lateral arm. Auscultation- Breath sounds decreased/coarse but appear to remain at baseline throughout all lung tobin. tracheal sounds, bronchial sounds overlying sternum, Bronchovessicular sounds between scapulae posteriorly, vessicular breath sounds heard throughout periphery are stable and more clear than they have been over last few visits. Adventitious sounds- Scattered wheezes, No rales, Scattered rhonchi. No accessory muscle use, no distress. Tolerating O2 NC. Talks in complete sentences, no distress. CARDIOVASCULAR: Auscultation- Regular rate and rhythm. Distant sounds, III/ murmur left sternal border noted in sitting, supine positions. This does radiate into axilla and carotid region. Extremities- no cyanosis, no edema, no increased warmth of extremities Tele shows SR. ABDOMEN: Inspection- normal and no visible pulsations. Normal contour. Auscultation- Bowel sounds normal, no abdominal bruits. Palpation/Percussion- soft, non-tender, no rebound tenderness, no rigidity (guarding), no jar tenderness, no masses. Peripheral Vascular: Upper extremity Left- Normal temperature with pink nailbeds and no ulcerations. Upper extremity Right- Normal temperature with pink nailbeds and no ulcerations. Lower extremity- Normal temperature with pink nailbeds and no ulcerations. DP pulses 2+ bilaterally. Onychomycosis, nail hypertrophy is present. Pedal hair reduced but intact. Normal capillary refill. Edema- No edema. Musculoskeletal: Generalized-No generalized swelling or edema of extremities, no digital clubbing or cyanosis, neurovascularly intact all four extremities. Upper extremity- UNCHANGED EXAM. Right lateral side lying. Symmetrical posture. Left arm inside of shoulder sling else no visible deformity. Prominent ecchymoses along the anterior shoulder, superior shoulder, lateral shoulder, left lateral pectoral region chest, cross midline to right chest and right bicep. Tender along AC joint, along upper humerus and down to elbow. She has no pain at lateral/medial epicondyle. Normal sensation along medial and lateral upper extremity proximally and distally. No E/O compartment syndrome. NO tenderness overlying right shoulder, chest on the right side. As noted no tenderness bilateral lateral/medial epicondyle. Photo Graphics Librarian 5/5 and strength 5/5 bilateral UE. Elbow palpated, no tenderness overlying olecranon bilat. Normal supination, pronation to active/passive ROM on right, she would not do this on left ?apprehension. Bicep insertion/tricep insertion appear normal without obvious pathology on right, tender on left and guarding remains present. Known fracture of the left shoulder. Unchanged from exam yesterday, she was able to reach back from right lateral decubitus position with her left arm to scratch back of her left leg. She was bending at elbow fine. She had some forward flexion of shoulder today. I believe phys/OT can be helpful for her. Neurological: General- Moves all 4 extremities, SAI is currently in sling. Symmetrical face and body posture. Cranial nerves- individually evaluated II- XII and intact. PERRLA, Normal EOMI, visual/special senses appear intact, Face is symmetrical and normal sensation/movement, normal tongue, normal strength/ posture of neck musculature. Reflexes- intact with DTR 2+ patellar, Achilles, bicep, brachial, tricep. Ankle clonus normal with 2 beats. Strength- 5/5 bilateral UE and LE. Soft touch- intact bilateral UE and LE. Temperature sensation- intact bilateral UE and LE. Neuropsych: Oriented- Person, place, time. (AAOx3), Mood/affect- normal and congruent. Able to articulate well. Speech-Normal speech, normal rate, normal tone, normal use of language, volume and coherence. Thought content- Stable, communicative. Alert. Associations- intact, no SI/HI, no hallucinations, delusions, obsessions. Judgment/insight- Appropriate. Memory-Recall intact, remote and recent memory intact. Knowledge- Age appropriate fund of knowledge, concentration and attention span normal. Plan: 1. D/C hospital, readmit to Swing 2. UA/CBC/CMP/CK/Mg++ 05/08/18 3. Resume all home meds. 4. D/C with kdur 20meq BID PO with meals 5. D/C with mag oxide 400mg BID with meals PO 6. Smoking Cessation (did not want any replacement while in hospital). 7. Phys therapy/Occ Therapy to eval/treat, home eval for needs at d/c from swing 8. BP goal <150/90. 9. Diet regular. 10. Activity up with assist Discharge planning/rounding today >30 minutes total time.
== END 2018-05-06 11:54 | disposition short-term general hospital (02) | DRG 557 ==
LOC: ED 09:01 → SCU 13:23
PROVIDERS: ADMIT Family Medicine; ATTEND Family Medicine
DX: M62.82 Rhabdomyolysis (principal); G93.41 Metabolic encephalopathy; E87.1 Hypo-osmolality and hyponatremia; E87.6 Hypokalemia; E83.51 Hypocalcemia; E86.0 Dehydration; E83.42 Hypomagnesemia; M54.9 Dorsalgia, unspecified; I95.9 Hypotension, unspecified; T79.6XXD Traumatic ischemia of muscle, subsequent encounter; D64.9 Anemia, unspecified; D72.829 Elevated white blood cell count, unspecified; R74.8 Abnormal levels of other serum enzymes; S42.213D Unspecified displaced fracture of surgical neck of unspecified humerus, subsequent encounter for fracture with routine healing; J44.9 Chronic obstructive pulmonary disease, unspecified; K59.00 Constipation, unspecified
CPT/HCPCS: 36415; 80048; 80053; 81001; 82150; 82550; 82553; 82607; 82728; 82746; 82803; 83036; 83540; 83550; 83605; 83690; 83735; 84145; 84295; 84439; 84443; 84466; 84484; 85025; 85045; 85610; 85730; 86850; 86900; 87040; 87086; 87502; 93005; 93010; 94640; 96361; 96365; 96367; 99284

== ENCOUNTER 2018-05-06 11:58 | Inpatient (IN) | payer OTHER ==
[2018-05-06] MEDS: ALBUTEROL 0.083% NEB NEB SCH ×2 (14:22→19:45)
--- NOTE | 2018-05-06 14:54 | RS.OTINEVL ---
Subjective - Patient information Date of Evaluation: 05/06/18 Date of Arrival on Unit: 05/06/18 Admitted From:: In-House Transfer Usual Living Arrangement: Alone Living Arrangement Comments: lives alone, however family had been staying with her since she suffered the fall last sunday. Medical History Comments:: LUE fractured humerus in the neck with displaced humurus. possible cervical cancer, ischemic disease, kyphoplasty, gallbladder, appendix, gastroesophageal reflux, hiatal hernia, COPD, TIA 12/30/12, ischemic disease, head trauma, lung CA, Spots on lungs CVA 07/20. HTN Surgical History: Hysterectomy Surgical History Comments:: gall bladder, appendix, back surgery. Subjective Information/ Patient Comments:: I can't move that arm. You don't know my daughter. - Level of function Prior to this admission, the patient could do the following:: Independent Selfcare, Independent ADL's, Independent Ambulation, Participated in Social Activities Outside home Abilities prior to this admission: Pt lived at home alone and was taking care of herself before the fall. After the fall the daughters were staying with her. Current Level of Function: Partially Dependent Current Equipment Used at Home: Oxygen at home through [employer]. Rollator. Shower chair. Power Chair. Nebulizer Pain Assessment - Pain Pain Score: 5 Side: left Pain Location Body Site: Shoulder Pain Aggravating Factors: ADL's, Changing Position, Exercise/Activity, Standing , Walking Pain Alleviating Factors: Exercise, Position Change, Sitting Interventions - Objective Patient Orientation: Person, Place, Situation Current Interventions: IV's, Oxygen, Compression pump Observation: Pt has a bruised left UE. Pt is weak and requires assistance with ADLS. Interventions - ROM Right Upper Extremity AROM: WFL's Left Upper Extremity AROM: Marked limitation - Strength Right Upper Extremity Strength: Mild Weakness Left Upper Extremity Strength: Severe Weakness - Sensation Right Upper Extremity Sensation: Intact/Normal Left Upper Extremity Sensation: Intact/Normal Balance - Sitting Balance Static Sitting Balance: Fair Dynamic Sitting Balance: Fair - Standing Balance Static Standing Balance: Good Dynamic Standing Balance: Good ADL Skills - Self Feeding Self Feeding: Independent - Bathing Bathing UE: Max Assist - Dressing Dressing LE: Independent, Max Assist - Toilet Management Toileting Management: Supervision Functional Mobility - Bed Mobility Rolling R/L: CGA Scooting: CGA Supine to Sit: Min Assist, 1 person assist Sit to Supine: Min Assist - Transfers Sit to Stand: CGA Stand to Sit: CGA Stand Pivot Transfers: Min Assist - Safety Awareness Safety Awareness: Good AMMON INDEX SCORE: 53 Additional Treatment Performed - Additional units charged Exercise: 17 - Time with patient Length of Evaluation: 20 Total treatment time: 37 Activities Do you enjoy playing games?: Yes Would you be interested in leaving your room for activities?: Yes Would you enjoy group activities?: Yes Do you have difficulty with your vision?: Yes Patient Interests:: Watching Television, Visiting/Socializing Patient Education Patient Education: Education of diagnosis, Home Exercise Program, Education of Plan of Care Teaching Recipient: Patient Teaching Methods: Discussion Assessment Problem List:: Decreased level of function, Requires training/education, Decreased safety/Risk of falls, Weakness Rehab Potential: Good Candidate for Swing Bed for Therapy Services?: yes Evaluation Complexity: HISTORY: Medium, EXAM OF BODY SYSTEMS: Medium, CLINICAL DECISION MAKING: Medium Short Term Goals - Goals GOAL 1: Pt to be safe with functional mobility for self care. Goal to be met by: 05/13/18 GOAL 2: Pt to increase BUE strength to 4/5 for UB dressing. Goal to be met by: 05/13/18 GOAL 3: Pt to increase dyn. std. bal. to G-/F+ Goal to be met by: 05/13/18 Accountant Budget Goals GOAL 1: Pt to be (I) with self care management. Goal to be met by: 05/17/18 GOAL 2: Pt to increase BUE strength to 4+/5 for UB dressing. Goal to be met by: 05/17/18 GOAL 3: Pt to increase dyn. std. bal. to G+ Goal to be met by: 05/17/18 Plan Plan of Care: Therapeutic EX, Neuromuscular Re-Educ, Therapeutic Activity, Self- Care/Home Management Modalities: Cold Pack/Cryotherapy Duration of Treatment: 2 Weeks Anticipated Discharge Destination: Home Treatment Diagnosis (ICD 10 Codes): M62.81 Muscle WEakness, Z74.1 Need for assistance with personal care. Has the Physician been added for Co-signature?: Yes
--- NOTE | 2018-05-06 16:09 | RS.PTINEVL ---
Subjective - Patient information Date of Evaluation: 05/06/18 Date of Arrival on Unit: 05/06/18 Admitted From:: In-House Transfer (swing bed transfer in house) Diagnosis: hypokalemia, hyponatremia, h/o falls, s/p L humerus fx Usual Living Arrangement: Alone Living Arrangement Comments: lives alone, however family had been staying with her since she suffered the fall last sunday. Home Environment: House, Stairs (few), Rail Medical History: Hypertension, COPD, Arthritis Medical History Comments:: osteoporosis, CAD, hiatal hernia, LATEX ALLERGY?: No Surgical History: Cholecystectomy, Hysterectomy Surgical History Comments:: appey Medications: see chart Subjective Information/ Patient Comments:: pt states she is tired today from walking and changing rooms. - Level of function Prior to this admission, the patient could do the following:: Independent Selfcare, Independent ADL's, Independent Ambulation, Participated in Social Activities Outside home Current Level of Function: Partially Dependent Current Equipment Used at Home: Oxygen at home through [employer]. Rollator. Shower chair. Power Chair. Nebulizer Pain Assessement - Location L UE Description: Aching Pain Behavior: Rubbing Site, Facial Grimacing Pain Aggravating Factors: Changing Position, Walking Pain Alleviating Factors: Medication Interventions - Objective Patient Orientation: Person, Place, Time, Situation Current Interventions: IV's, Oxygen Observation: pt with sling in place on LUE Range of Motion - ROM Right Upper Extremity AROM: WFL's Left Upper Extremity AROM: Marked limitation (due to fx) Right Lower Extremity AROM: WFL's Left Lower Extremity AROM: WFL's Muscle Strength - Muscle Strength Right Upper Extremity Strength: Mild Weakness (shld flex 4/5, elbow flex/ext 4/5 ) Left Upper Extremity Strength: Severe Weakness (n/t due to L humerus fx) Right Lower Extremity Strength: Mild Weakness (hip flex 4-/5, knee flex/ext 4/5 , ankle Df/PF 4/5) Left Lower Extremity Strength: Mild Weakness (hip flex 4-/5, knee flex/ext 4/5, ankle Df/PF 4/5) Sensation - Sensation Right Upper Extremity Sensation: Intact/Normal Left Upper Extremity Sensation: Intact/Normal Right Lower Extremity Sensation: Intact/Normal Left Lower Extremity Sensation: Intact/Normal Palpation Palpation Findings: Tenderness Comments:: L shld tender to palpation Balance - Sitting Balance and Reactions Static Sitting Balance: Good Dynamic Sitting Balance: Fair - Standing Balance and Reactions Static Standing Balance: Poor Dynamic Standing Balance: Poor Standing Equilibrium Reactions: Delayed Left, Delayed Right Standing Protective Reactions: Delayed Left, Delayed Right Functional Mobility - Bed Mobility Rolling R/L: CGA, Min Assist Supine to Sit: CGA, Min Assist Sit to Supine: CGA, Min Assist - Transfers Sit to Stand: CGA Stand to Sit: CGA - Safety Awareness Safety Awareness: Fair AMMON INDEX SCORE: 53 Ambulation - Ambulation Assistive Device Used: Reyes Walker Orthotic/Prosthetic Device: No Distance: 70ft Assistance needed with Ambulation: CGA, Min Assist Gait Deviations: Forward posture, Short stride Ambulation Comments: pt requires verbal cues for sequencing with hemiwalker Factors Affecting Ambulation: Decreased Balance, Breathing/O2 Saturation, Pain, Weakness, Decreased Coordination, Decreased ROM, Decreased Safety, Limited Endurance Treatment time - Units charged Gait trainin - Time with patient Length of Evaluation: 19 Total treatment time: 31 Patient Education - Education Patient Education: Activity Modification, Education of Plan of Care Teaching Recipient: Patient Teaching Methods: Discussion Comments: discussion regarding POC as well as safety with gait and transfers Assessment - Assessment Problem List:: Decreased level of function, Requires training/education, Decreased safety/Risk of falls, Weakness, Pain limits previous level of function Rehab Potential: Good Further Therapy Indicated?: Yes Candidate for Swing Bed for Therapy Services?: is current swing bed pt Evaluation Complexity: HISTORY: Medium, EXAM OF BODY SYSTEMS: Medium, CLINICAL PRESENTATION: Medium, CLINICAL DECISION MAKING: Medium Short Term Goals GOAL #1: pt demonstrate independence with rolling and bridging in bed. Goal to be met by: 05/10/18 GOAL #2: pt transfer sup to/from sit CGA Goal to be met by: 05/10/18 GOAL #3: Sit to/from stand CGA Goal to be met by: 05/10/18 GOAL #4: pt amb 120ft with hemiwalker with CGA x 1 Goal to be met by: 05/10/18 GOAL #5: Improve dyn stand balance fair Goal to be met by: 05/10/18 Improvement Advisor Goals GOAL #1: pt transfer sup to/from sit to/from stand SBA Goal to be met by: 05/15/18 GOAL #2: pt amb functional household distances with hemiwalker SBA to CGA Goal to be met by: 05/15/18 GOAL #3: pt ascend/descend 2-3 steps with HR CGA Goal to be met by: 05/15/18 Plan Plan of Care: Therapeutic EX, Therapeutic Activity Other:: gait training Frequency of Treatment: 1-2 X day, as tolerated Duration of Treatment: 10 days Anticipated Discharge Destination: Home Treatment Diagnosis (ICD 10 Codes): R26.2 difficulty walking. R 26.81 balance impaired. M62.81 weakness. Z91.89 risk for falls. Has the Physician been added for Co-signature?: Yes
[2018-05-06] MEDS ORDERED: MILK OF MAGNESIA PO STA (17:34)
[2018-05-06] MEDS: PROTONIX PO SCH (17:48)
[2018-05-06] MEDS: NORCO 7.5-325 PO SCH ×2 (17:48→23:47)
[2018-05-06] MEDS: COREG PO SCH (17:48)
[2018-05-06] MEDS ORDERED: NORCO 7.5-325 PO SCH (18:00)
[2018-05-06] MEDS: NEURONTIN PO SCH (20:28)
[2018-05-06] MEDS: CARAFATE PO SCH (20:28)
[2018-05-06] MEDS: ASTELIN 0.1% NAS SCH (20:29)
[2018-05-06] MEDS: AGGRENOX CAPSULE PO SCH (20:29)
[2018-05-06] MEDS: SYMBICORT 80-4.5 MCG INHALER IH SCH (20:29)
[2018-05-06] MEDS: MELATONIN PO SCH (20:32)
[2018-05-06] MEDS: PYRIDOXINE HCL PO SCH (20:32)
[2018-05-06] MEDS: IPRATROPIUM BROMIDE 0.06% NS SCH (20:33)
[2018-05-06] MEDS ORDERED: ASTELIN 0.1% NAS SCH (21:00)
[2018-05-06] MEDS ORDERED: GABAPENTIN PO SCH (21:00)
[2018-05-07] MEDS: ALBUTEROL 0.083% NEB NEB SCH ×4 (05:15→21:57)
[2018-05-07] MEDS: NORCO 7.5-325 PO SCH ×3 (05:42→18:14)
[2018-05-07] MEDS: PROTONIX PO SCH ×2 (05:42→18:14)
[2018-05-07] MEDS: AGGRENOX CAPSULE PO SCH ×2 (08:27→21:22)
[2018-05-07] MEDS: REQUIP PO SCH (08:27)
[2018-05-07] MEDS: NORVASC PO SCH (08:28)
[2018-05-07] MEDS: NEURONTIN PO SCH ×2 (08:28→21:22)
[2018-05-07] MEDS: HYZAAR 50-12.5 MG TAB PO SCH (08:29)
[2018-05-07] MEDS: SINGULAIR PO SCH (08:29)
[2018-05-07] MEDS: K-DUR PO SCH (08:29)
[2018-05-07] MEDS: MAG-OX PO SCH (08:29)
[2018-05-07] MEDS: CARAFATE PO SCH ×3 (08:30→21:23)
[2018-05-07] MEDS: SYMBICORT 80-4.5 MCG INHALER IH SCH ×2 (08:30→21:23)
[2018-05-07] MEDS: COREG PO SCH ×2 (08:30→18:14)
[2018-05-07] MEDS: FLONASE NAS SCH (08:31)
[2018-05-07] MEDS: ASTELIN 0.1% NAS SCH ×2 (08:31→21:23)
[2018-05-07] MEDS: IPRATROPIUM BROMIDE 0.06% NS SCH ×3 (08:46→21:23)
[2018-05-07] MEDS: SPIRIVA IH SCH (08:46)
[2018-05-07] MEDS ORDERED: SPIRIVA IH SCH (09:00)
--- NOTE | 2018-05-07 18:01 | PCM ---
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 Status: Chronic - Plan Plan: Generalized Weakness/Functional Decline/Balance Issues: D/C from SCU and readmit to Swing Bed 05/06/18. Saw patient 05/07/18 and new labs to be drawn . Rhabdomyolysis/Elevated CK/CKMB: Levels improved throughout her recent hospital stay. - CBC/CMP/CK 05/08/18. - Continue phys therapy/OT therapy. - Saline lock, encourage PO intake. - Electrolyte replacement as needed Humerus Fracture: Limit mobility/movement. Still minimal benefit to additional imaging at this time.still w/o obvious hematoma, resolving ecchymosis. no obvious/active bleed. F/u ortho as Outpatient - Continue phys/OT. Leukocytosis: Emesis x 2 05/04/18, solu-medrol in hospital. Repeat CBC 05/08/18. - Repeat CBC in am 05/08/18. Hypokalemia: Resolved during recent hospital stay. Monitor CMP. ON K+CL- 20 BID. - REpeat CMP 05/08/18 - Monitor mg++, repeat 05/08/18. continue oral replacement - Continue HCTZ home med, will monitor for now. Anemia: Down to 7.9 in hospital type and crossed but never transfused. D/C iron during hospital stay. Continue to hold iron PO. - Would like Hemocult with BM. - CBC am 05/08/18. Hypomagnesemia: Mild, replacing PO. Repeat labs 05/08/18 - Mag Oxide 400mg 1 PO BID. Tobacco: Tobacco Cessation reviewed w/ patient again today for 2 minutes. She does not want patches. We reviewed lifestyle choices and discussed quitting. Ready to quit status discussed. The risks and hazards of continued tobacco abuse were discussed with the patient today and total tobacco cessation as recommended. It was clearly and unambiguously explained that continued tobacco usage will adversely affect overall morbidity and mortality of the patient. Patient was informed that tobacco use can lead to numerous cancers, worsening of cardiovascular and pulmonary systems and that lung damage is often permanent and irreversible. I advised the patient to inform me if any further assistance is requested, as we can offer counseling services, nicotine replacement inhaled , patch, lozenge, gum, or prescription medications to include Chantix or Wellbutrin for assistance. I will reassess the interest in tobacco cessation at the next and all subsequent visits. Has not craved while in hospital. Declined patches/replacement. Constipation: MoM Diet: Regular DVT PROPHY: SUSHIL/SCD. She is on aggrenox, i will continue this for now. Monitor CBC> Pain: [place] per home dosing daily 7.5mg/325mg to continue. R/B/A d/w patient. Code status: DNR Disposition: Admitted to SCU for therapy PHys/OT. Suspect 1-2 weeks to regain balance, work on strengthening and to use arm. I will saline lock. Repeat labs 05/08/18 and see how she is doing. Continue home BP meds. No tele while in SWING unless she has any new issues. Goal keep BP 120-150/70-90. [place] NO CARE HOME. She has home [facility], [facility] that we can d/c to their assistance in 1- 2 weeks. She has resolving bruising. Pain is reasonably controlled with norco TID-QID. She is tolerating meals, good uout. No BM during recent hospital stay. We need to continue to monitor Hgb, CK/CKMB, electrolytes. >35 minutes, moderate severity, spent on admission for patient back into SCU today. Radha Youssef Daughter/POA. She continues to meet inpatient criteria with admission to SCU. Would like to place into SWING for rehab with known shoulder fracture non surgical at this time.
[2018-05-07] MEDS: MELATONIN PO SCH (21:24)
[2018-05-07] MEDS: PYRIDOXINE HCL PO SCH (21:24)
[2018-05-08] MEDS: NORCO 7.5-325 PO SCH ×2 (00:31→05:52)
[2018-05-08] MEDS: ALBUTEROL 0.083% NEB NEB SCH ×4 (05:25→20:05)
[2018-05-08] MEDS: PROTONIX PO SCH ×2 (05:52→16:37)
[2018-05-08] MEDS: AGGRENOX CAPSULE PO SCH ×2 (08:15→20:59)
[2018-05-08] MEDS: K-DUR PO SCH (08:16)
[2018-05-08] MEDS: SINGULAIR PO SCH (08:16)
[2018-05-08] MEDS: NEURONTIN PO SCH ×2 (08:16→21:10)
[2018-05-08] MEDS: REQUIP PO SCH (08:16)
[2018-05-08] MEDS: HYZAAR 50-12.5 MG TAB PO SCH (08:16)
[2018-05-08] MEDS: COREG PO SCH ×2 (08:16→16:37)
[2018-05-08] MEDS: MAG-OX PO SCH (08:16)
[2018-05-08] MEDS: NORVASC PO SCH (08:17)
[2018-05-08] MEDS: CARAFATE PO SCH ×3 (08:17→21:10)
[2018-05-08] MEDS: SYMBICORT 80-4.5 MCG INHALER IH SCH ×2 (08:19→21:10)
[2018-05-08] MEDS: SPIRIVA IH SCH (08:19)
[2018-05-08] MEDS: ASTELIN 0.1% NAS SCH ×2 (08:19→21:10)
[2018-05-08] MEDS: IPRATROPIUM BROMIDE 0.06% NS SCH ×3 (08:20→21:13)
[2018-05-08] MEDS: FLONASE NAS SCH (08:20)
[2018-05-08] MEDS: SODIUM CHLORIDE 1,000 ML IV SCH ×2 (09:38→19:34)
[2018-05-08] MEDS ORDERED: PHENERGAN 25 MG/ML VIAL 12.5 MG in SODIUM CHLORIDE 50 ML IV PRN (10:50)
[2018-05-08] MEDS ORDERED: PHENERGAN TAB PO PRN (10:53)
[2018-05-08] MEDS: MIRALAX PO SCH (11:15)
[2018-05-08] MEDS ORDERED: PHENERGAN 25 MG/ML VIAL ONE (11:30)
--- NOTE | 2018-05-08 14:41 | DI ---
EXAM: Single view of the chest HISTORY: Leukocytosis and cough. COMPARISON: Chest x-ray 03/16/[address] chest 05/03/2018 FINDINGS: The cardiomediastinal silhouette is unchanged. There is a [id number] hiatal hernia. Lungs are hyperinflated with blunting the costophrenic angles. There is minimal ground-glass in th e lung bases. There is unchanged fracture of the left proximal humerus. The adjacent osseous struct ures are unremarkable. IMPRESSION: 1. Lungs are hyperinflated with mild bibasilar ground-glass that may represent atelectasis versus ea rly infection. Small effusions are present. Findings are consistent with chronic obstructive pulmon waleska disease. 2. Unchanged displaced fracture of the left humerus. 3. Moderate hiatal hernia.
--- NOTE | 2018-05-08 15:23 | DI ---
EXAM: Single view the abdomen HISTORY: Abdominal cramping and nausea. COMPARISON: CT abdomen pelvis 05/03/2018 and multiple priors FINDINGS: Post-treatment changes in the lumbar spine are stable. There are surgical clips in right u pper quadrant. There are surgical clips in the pelvis. There is stool and gas scattered throughout the colon in the abdomen pelvis. There are no dilated loops of bowel, air fluid levels or pneumatosi s. There is no free air beneath the diaphragm. There is degenerative disease of the spine. IMPRESSION: 1. No acute abnormality or obstruction. 2. Postsurgical changes in the abdomen and treatment changes in the lumbar spine.
[2018-05-08] MEDS ORDERED: ROCEPHIN 1 GM in SODIUM CHLORIDE 50 ML IV SCH (18:30)
[2018-05-08] MEDS ORDERED: ROCEPHIN ONE (19:20)
[2018-05-08] MEDS: DOXYCYCLINE HYCLATE PO SCH (21:10)
[2018-05-08] MEDS: MELATONIN PO SCH (21:13)
[2018-05-08] MEDS: PYRIDOXINE HCL PO SCH (21:13)
[2018-05-09] MEDS: ALBUTEROL 0.083% NEB NEB SCH ×4 (04:55→20:43)
[2018-05-09] MEDS: SODIUM CHLORIDE 1,000 ML IV SCH ×3 (05:32→14:51)
[2018-05-09] MEDS: PROTONIX PO SCH ×2 (05:57→16:54)
[2018-05-09] MEDS: SYMBICORT 80-4.5 MCG INHALER IH SCH ×2 (08:50→20:49)
[2018-05-09] MEDS: FLONASE NAS SCH (08:51)
[2018-05-09] MEDS: SPIRIVA IH SCH (08:51)
[2018-05-09] MEDS: ASTELIN 0.1% NAS SCH ×2 (08:52→20:49)
[2018-05-09] MEDS: CARAFATE PO SCH ×3 (08:53→20:49)
[2018-05-09] MEDS: REQUIP PO SCH (08:53)
[2018-05-09] MEDS: NORVASC PO SCH (08:53)
[2018-05-09] MEDS: NEURONTIN PO SCH ×2 (08:53→20:50)
[2018-05-09] MEDS: COREG PO SCH ×2 (08:53→16:54)
[2018-05-09] MEDS: MAG-OX PO SCH (08:53)
[2018-05-09] MEDS: HYZAAR 50-12.5 MG TAB PO SCH (08:53)
[2018-05-09] MEDS: SINGULAIR PO SCH (08:53)
[2018-05-09] MEDS: K-DUR PO SCH (08:54)
[2018-05-09] MEDS: DOXYCYCLINE HYCLATE PO SCH ×2 (08:54→20:49)
[2018-05-09] MEDS: IPRATROPIUM BROMIDE 0.06% NS SCH ×3 (08:55→20:52)
[2018-05-09] MEDS: MIRALAX PO SCH (08:55)
[2018-05-09] MEDS: AGGRENOX CAPSULE PO SCH ×2 (11:01→20:49)
[2018-05-09] MEDS: NORCO 7.5-325 PO PRN (13:52)
--- NOTE | 2018-05-09 17:06 | PCM.PROG ---
Subjective: 72 yo CF seen in ER 04/29/18 [facility] surgical neck fracture of left humerus, d/c home met with ortho, had alterred mental status, hypokalemia, hypomagnesemia, hyponatremia, hypocalcemia, hypotension, Elevated CK/CKMB and presented to ED 05/03/18 and I admitted her to hospital. We corrected the abnormalities except for CK/CKMB and she was transferred to TCU 05/06/18 w/ H+P admit done 05/07/18. Patient is following with phys and occupational therapy while in swing status. CBC showed elevated WBC 20.27, hgb 9.1 and plt 481. macrocytic process mcv 103.7. Neutrophilia. INitially thought ?steroidal effect. I evaluated CXR and there was ? about possible pneumonia so I added doxy 100 PO BID/ceftriaxone 1 gram IV daily. Remains afebrile. Feeling fine, breathing fine. No C/O other than left arm/shoulder. She remains on 2 L NC O2 96-99%. Chem panel on 05/08 showed sodium 129.7 potassium 4.4, c02 33.2, cr 0.59. CK 392.9 CKMB 2.240 and albumin 3.25. Urien on 05/08 SG 1.010 trace bact else looked okay. She refused labs am 05/09/18. Nursing notes from 05/08 noted urine freq. Culture sent. She has been OOB, visiting with daughter and doing well with the stay. Fatigue on limited involvement with therapy. Less tired 05/08/18. Sling on left arm. SOA and MAIN noted. O2 in place. No BM since being in hospital. She noted that she does not have them when she is in hospital. MOM ordered and given. Still w/ o BM. Apple juice given as well. Working on balance/coordination with phys and Occ therapy. Plan to return home at discharge w/ [facility] services. Nursing note 10: 55 am 05/08 small emesis, abd crampin. Miralax ordered by me. KUB and phenergan PRN also ordered. She requested this and it was given 11:52. No BM until this am 06:08 3 small black/green noted. Patient felt better. This was followed by another large BM. Total 3 BM 05/09/18. Nausea abated. IV fluids on board, urinating freq. Using rosibel walker. Per case management CGA w/ transfers and ambulation. Decreased balance. REVIEW OF SYMPTOMS: (Positives bolded) Essentially unchanged 05/05/18. General: weight loss, fever, chills, night sweats, fatigue, appetite loss ( BETTER), Nausea (BETTER), Constipation (BETTER) HEENT: blurry vision, eye pain, eye discharge, dry eyes, decreased vision, sore throat tinnitus, bloody nose, hearing loss, sinus pain/pressure, ear pain/ pressure. Respiratory: shortness of breath (CHRONIC/STABLE), cough (CHRONIC/STABLE), hemoptysis, wheezing, pleurisy, Cardiovascular: chest pain, PND, palpitation, edema, orthopnea, syncope, swelling of extremities Gastro: Nausea, vomiting, diarrhea, hematemesis, abdominal pain, constipation Genito: hematuria, dysuria, glycosuria, hesitancy, frequency, incontinence [place]: Arthralgia, myalgia, muscle weakness, joint swelling, LUE Skin: rash, pruritis, sores, nail changes, skin thickening, change in wart/mole , itching, rash, new lesions, pruritus, nail changes Neuro: Migraine, numbness, ataxia, tremor, vertigo, weakness LUE, memory loss, Irritability, dizziness Endocrine: excessive thirst, polyuria, cold intolerance, heat intolerance, goiter Psychiatric: depression, anxiety, anti-depressants, alcohol abuse, drug abuse, insomnia, change in sleep pattern and mood changes NO SI/HI Heme/lymph: bruising, bleeding gums, blood clots, swollen glands, lymphedema, Allergic/immune: allergic rhinitis, hay fever, asthma, hives Objective: Vital Signs (72 hours) 05/07/18 05/07/18 05/07/18 10:00 14:00 18:00 Temperature 98.3 F Pulse Rate 78 Respiratory 16 Rate Blood Pressure 116/61 O2 Sat by Pulse 99 99 96 Oximetry 05/07/18 05/08/18 05/08/18 18:21 06:00 10:00 Temperature 98.3 F 98.1 F Pulse Rate 67 90 Respiratory 14 20 Rate Blood Pressure 132/83 121/65 O2 Sat by Pulse 99 96 97 Oximetry 05/08/18 05/08/18 05/09/18 18:00 20:00 05:43 Temperature 99.0 F 99.3 F Pulse Rate 70 64 Respiratory 14 70 H 18 Rate Blood Pressure 113/67 140/75 O2 Sat by Pulse 98 98 Oximetry 05/09/18 05/09/18 05/09/18 09:35 14:00 17:36 Temperature 98.4 F Pulse Rate 68 Respiratory 18 Rate Blood Pressure 137/63 O2 Sat by Pulse 99 90 L 96 Oximetry 05/10/18 05:05 Temperature 98.7 F Pulse Rate 70 Respiratory 17 Rate Blood Pressure 140/70 O2 Sat by Pulse 98 Oximetry Constitutional: Appearance-No acute distress, Consistent with stated age, talks full sentences, hirsuitism along upper lip. Orientation- Oriented x 3, alert Build and Nutrition-[normal] General- Patient is pleasant and cooperative with the interview and exam, Ecchymosis prominently left chest, midline chest, right chest and to right bicep, along the posterior aspect of tricep and entirety of bicep down to the antecubital fossa. Normal touch sense , normal temp sense and normal movement distal to elbow. Normal bilateral Clerk Analyst 5 /5. No skin breakdown about buttock at d/c or admit. No breakdown heels ( padded). SCD in place. ENMT: Nasal mucosa- No bleeding noted and no ulcerations observed. [place], moist. Turbinates non boggy. Lips- normal color, moist without cracks/lesions Oral Cavity/Palate- hard/soft palate intact without lesions, oral mucosa pink and moist. Dentures in place, no oral lesions, Tongue normal midline. Oropharynx- no pharyngeal erythema, Uvula midline. No post nasal drip. No exudate. Salivary glands- Non tender to palpation CHEST/LUNG: Inspection- symmetric chest wall no pectus deformity. Normal effort , no distress, no use of accessory muscles. Palpation- nontender sternum, ribline. Ecchymosis along anterior chest and mostly along left pectoralis region, AC joint, lateral arm. Auscultation- Breath sounds decreased/coarse but appear to remain at baseline throughout all lung tobin. tracheal sounds, bronchial sounds overlying sternum, Bronchovessicular sounds between scapulae posteriorly, vessicular breath sounds heard throughout periphery are stable and more clear than they have been over last few visits. Adventitious sounds- Scattered wheezes, No rales, Scattered rhonchi. No accessory muscle use, no distress. Tolerating O2 NC. Talks in complete sentences, no distress. CARDIOVASCULAR: Auscultation- Regular rate and rhythm. Distant sounds, III/ murmur left sternal border noted in sitting, supine positions. This does radiate into axilla and carotid region. ABDOMEN: Inspection- normal and no visible pulsations. Normal contour. Auscultation- Bowel sounds normal, no abdominal bruits. Palpation/Percussion- soft, non-tender, no rebound tenderness, no rigidity (guarding), no jar tenderness, no masses. Peripheral Vascular: Upper extremity Left- Normal temperature with pink nailbeds and no ulcerations. Upper extremity Right- Normal temperature with pink nailbeds and no ulcerations. Lower extremity- Normal temperature with pink nailbeds and no ulcerations. DP pulses 2+ bilaterally. Onychomycosis, nail hypertrophy is present. Pedal hair reduced but intact. Normal capillary refill. Edema- No edema. Musculoskeletal: Generalized-No generalized swelling or edema of extremities, no digital clubbing or cyanosis, neurovascularly intact all four extremities. Upper extremity- Sitting at bedside. Symmetrical posture. Left arm inside of shoulder sling else no visible deformity. Prominent ecchymoses along the anterior shoulder, superior shoulder, lateral shoulder, left lateral pectoral region chest, cross midline to right chest and right bicep. Tender along AC joint, along upper humerus and down to elbow. She has no pain at lateral/ medial epicondyle. Normal sensation along medial and lateral upper extremity proximally and distally. No E/O compartment syndrome. NO tenderness overlying right shoulder, chest on the right side. no tenderness bilateral lateral/ medial epicondyle. Clerk Analyst 5/5 and strength 5/5 bilateral UE. Elbow palpated, no tenderness overlying olecranon bilat. Normal supination, pronation to active/ passive ROM on right, she would not do this on left ?apprehension. Bicep insertion/tricep insertion appear normal without obvious pathology on right, tender on left and guarding remains present. Known fracture of the left shoulder. Unchanged from exam yesterday, she was able to reach back from right lateral decubitus position with her left arm to scratch back of her left leg. She was bending at elbow fine. She had some forward flexion of shoulder today. I believe phys/OT can be helpful for her. Neurological: General- Moves all 4 extremities, SAI is currently in sling. Symmetrical face and body posture. Cranial nerves- individually evaluated II- XII and intact. PERRLA, Normal EOMI, visual/special senses appear intact, Face is symmetrical and normal sensation/movement, normal tongue, normal strength/ posture of neck musculature. Reflexes- intact with DTR 2+ bicep, brachial, tricep. Neuropsych: Oriented- Person, place, time. (AAOx3), Mood/affect- normal and congruent. Able to articulate well. Speech-Normal speech, normal rate, normal tone, normal use of language, volume and coherence. Thought content- Stable, communicative. Alert. Associations- intact, no SI/HI, no hallucinations, delusions, obsessions. Judgment/insight- Appropriate. Memory-Recall intact, remote and recent memory intact. Knowledge- Age appropriate fund of knowledge, concentration and attention span normal. Laboratory Last Values WBC 20.27 K/ul (4.6-10.2) H 05/08/18 04:15 RBC 2.67 10^6/ul (4.20-5.40) L 05/08/18 04:15 Hgb 9.1 g/dl (12.0-16.0) L 05/08/18 04:15 Hct 27.7 % (37.0-47.0) L 05/08/18 04:15 MCV 103.7 fl (81.0-99.0) H 05/08/18 04:15 MCH 34.1 pg (27.0-31.0) H 05/08/18 04:15 MCHC 32.9 (31.8-35.4) 05/08/18 04:15 RDW Coeff of Lynette 12.6 % (11.6-14.8) 05/08/18 04:15 Plt Count 481 10^3/uL (140-440) H 05/08/18 04:15 Immature Gran % (Auto) 1.2 % (0.0-5.0) 05/08/18 04:15 Neut % (Auto) 80.6 05/08/18 04:15 Lymph % (Auto) 9.9 (10.0-50.0) L 05/08/18 04:15 [place] % (Auto) 7.7 (0-10) 05/08/18 04:15 Eos % (Auto) 0.6 % (0.0-7.0) 05/08/18 04:15 Baso % (Auto) 0.0 % (0.0-3.0) 05/08/18 04:15 Immature Gran # (Auto) 0.3 (0.0-1.0) 05/08/18 04:15 Neut # (Auto) 16.3 K/ul (2.0-6.9) H 05/08/18 04:15 Lymph # (Auto) 2.0 K/uL (0.60-3.4) 05/08/18 04:15 [place] # (Auto) 1.6 K/uL (0.4-2.0) 05/08/18 04:15 Eos # (Auto) 0.1 K/ul (0.0-0.7) 05/08/18 04:15 Baso # (Auto) 0.0 K/uL (0-0.2) 05/08/18 04:15 Sodium 129.7 mmol/L (134.5-145) L 05/08/18 04:15 Potassium 4.40 mmol/L (3.5-5.1) 05/08/18 04:15 Chloride 91.5 mmol/L (98-107) L 05/08/18 04:15 Carbon Dioxide 33.2 mmol/L (22-30.0) H 05/08/18 04:15 Anion Gap 9.40 05/08/18 04:15 BUN 7.7 mg/dL (7-17) 05/08/18 04:15 Creatinine 0.59 mg/dL (0.60-1.30) L 05/08/18 04:15 Estimated GFR (MDRD) 100.00 mL/min 05/08/18 04:15 BUN/Creatinine Ratio 13.05 05/08/18 04:15 Glucose 100.7 mg/dL (74-106) 05/08/18 04:15 Calcium 8.69 mg/dL (8.4-10.2) 05/08/18 04:15 Magnesium 1.76 mg/dL (1.6-2.3) 05/08/18 04:15 Total Bilirubin 0.48 mg/dL (0.2-1.3) 05/08/18 04:15 AST 33.2 U/L (14-36) 05/08/18 04:15 ALT 24.2 U/L (0-35) 05/08/18 04:15 Alkaline Phosphatase 68.4 U/L (53-141) 05/08/18 04:15 Total Creatine Kinase 392.9 U/L (30-135) H 05/08/18 04:15 CK-MB (CK-2) 2.240 ng/ml (0.0-2.38) 05/08/18 04:15 CK-MB (CK-2) % 0.5700 05/08/18 04:15 Total Protein 5.99 g/dL (6.3-8.2) L 05/08/18 04:15 Albumin 3.25 g/dL (3.5-5.0) L 05/08/18 04:15 Globulin 2.74 05/08/18 04:15 Albumin/Globulin Ratio 1.18 05/08/18 04:15 Urine Color Yellow (YELLOW) 05/08/18 11:40 Urine Clarity Clear (CLEAR) 05/08/18 11:40 Urine pH 7.0 (5-9) 05/08/18 11:40 Ur Specific [place] 1.010 (1.005-1.030) 05/08/18 11:40 Urine Protein Negative (NEGATIVE) 05/08/18 11:40 Urine Glucose (UA) Negative (NEGATIVE) 05/08/18 11:40 Urine Ketones Negative (NEGATIVE) 05/08/18 11:40 Urine Blood Negative (NEGATIVE) 05/08/18 11:40 Urine Nitrite Negative (NEGATIVE) 05/08/18 11:40 Urine Bilirubin Negative (NEGATIVE) 05/08/18 11:40 Urine Urobilinogen 0.2 (0.2) 05/08/18 11:40 Ur Leukocyte Esterase 1+ (NEGATIVE) 05/08/18 11:40 Urine Microscopic WBC 0-2 (0-2) 05/08/18 11:40 Ur Squamous Epith Cells 0-2 (0-5) 05/08/18 11:40 Urine Bacteria Trace (NOT PRESENT) 05/08/18 11:40 Stl Occult Blood (IFOB) Positive (NEGATIVE) 05/09/18 06:40 Stool Occult Blood #2 No specimen received (NEGATIVE) 05/09/18 06:40 Stool Occult Blood #3 No specimen received (NEGATIVE) 05/09/18 06:40 Abd x-ray no acute obstruction. Post surgical changes in abd and treatment changes in LSP. CXR 05/09 lungs are hyperinflated mild ateectasis vs infection. Small effusion present. COPD. Left humeral fracture unchanged. Hiatal hernia. Hemoccult was + for blood. We will have her f/u with GI as outpatient. (1) Weakness Status: Acute Code(s): R53.1 - WEAKNESS SNOMED Code(s): 22661437 (2) Falls Status: Acute Code(s): W19.XXXA - UNSPECIFIED FALL, INITIAL ENCOUNTER SNOMED Code(s): 7103942 (3) Humeral surgical neck fracture Status: Acute Code(s): S42.213A - UNSP DISP FX OF SURGICAL NECK OF UNSP HUMERUS, INIT SNOMED Code(s): 266459150 (4) Balance disorder Status: Inactive Code(s): R26.89 - OTHER ABNORMALITIES OF GAIT AND MOBILITY SNOMED Code(s): 733189614 (5) Decreased mobility Status: Acute Code(s): R26.89 - OTHER ABNORMALITIES OF GAIT AND MOBILITY SNOMED Code(s): 8343270 (6) COPD (chronic obstructive pulmonary disease) Status: Inactive Code(s): J44.9 - CHRONIC OBSTRUCTIVE PULMONARY DISEASE, UNSPECIFIED SNOMED Code(s): 35746981 (7) Constipation Status: Inactive Code(s): K59.00 - CONSTIPATION, UNSPECIFIED SNOMED Code(s) : 12432735 (8) Elevated CK-MB level Status: Inactive Code(s): R74.8 - ABNORMAL LEVELS OF OTHER SERUM ENZYMES SNOMED Code(s): 849478751 (9) Hypomagnesemia Status: Inactive Code(s): E83.42 - HYPOMAGNESEMIA SNOMED Code(s): 274124597 (10) Leukocytosis Status: Inactive Code(s): D72.829 - ELEVATED WHITE BLOOD CELL COUNT, UNSPECIFIED SNOMED Code(s): 484166143 (11) Light smoker Status: Chronic Plan: Generalized Weakness/Functional Decline/Balance Issues: TCU status, OT/Phys therapy following. Suspect another 3-5 days. Appears to be meeting OT goals but still behind on phys therapy goals. Admitted to Swing Bed 05/06/18. Labs drawn 05/08 but Rhabdomyolysis/Elevated CK/CKMB: Levels seem to continue to improve. - CBC/CMP 05/10/18 - Continue phys therapy/OT therapy. - Saline lock, encourage PO intake. - Electrolyte replacement as needed Humerus Fracture: Limit mobility/movement of the fracture. Concern for frozen shoulder. still w/o obvious hematoma, resolving ecchymosis. no obvious/active bleed. F/u ortho as Outpatient - Continue phys/OT. Leukocytosis: Repeat CBC 05/08/18. On abx now doxy 100 BID and ceftriaxone 1gram IV daily x 5 days. Urine evaluated and no obvious infection, Urinary freq but on IV fluids. NO dysuria, no burning. - Repeat CBC in am 05/10/18. Hypokalemia: Resolved during recent hospital stay. Stable, continues to be above 4.0. Oral K+CL- 20 BID to continue. - REpeat CMP 05/10/18 - Continue HCTZ home med, will monitor for now. Anemia: Down to 9.1 again. If she drops <8, I will type and cross and hold. I will again back down on fluids. She is staying above 7 and she is stable. If she drops below 7 transfuse 1 unit. Continue to hold iron PO as not iron def. B12 was normal. Macrocytic process. Monitor CBC, back down on fluids. If stable GI as outpatient. If worsening anemia, consider transfer to GI for inpatient eval. - Hemocult + (OFF IRON) - CBC am 05/11/18. Hypomagnesemia: Stable 1.76 on 05/08/18. - Mag Oxide 400mg 1 PO BID. Tobacco: Tobacco Cessation reviewed w/ patient again today. She feels fine. Continued cessation encouraged. Constipation: Miralax PRN. KUB no acute obstruction. Post surgical changes in abdomen. No other pathology. Hemoccult + for blood - F/U GI as outpatient. Diet: Regular DVT PROPHY: SUSHIL/SCD. She is on aggrenox, i will continue this for now. Monitor CBC. Pain: [place] per home dosing daily 7.5mg/325mg to continue. R/B/A d/w patient. Code status: DNR Disposition: Admitted to SCU for therapy PHys/OT. Suspect 1 week to regain balance, work on strengthening and to use arm. Will plan d/c with home health when meeting therapy goals. Repeat labs 05/10/18 and see how she is doing. Continue home BP meds. No tele while in SWING unless she has any new issues. Goal keep BP 120-150/70-90. She has no interest in going to the [facility]. She has home [facility], [facility] that we can d/c to their assistance in 1-2 weeks. Will likely need hemiwalker, which order will be provided. She has resolving bruising. Pain is reasonably controlled with norco TID-QID. These are now PRN and not scheduled. She is tolerating meals, good uout. No BM during recent hospital stay. We need to continue to monitor Hgb, CK/CKMB, electrolytes. >35 minutes, moderate severity, spent on subsequent care today. We discussed labs, talked about physical/occupational therapy. Reviewed imaging. admission for patient back into SCU today. Radha Youssef Daughter/POA. She continues to meet inpatient criteria with admission to SCU. Would like to place into SWING for rehab with known shoulder fracture non surgical at this time. See again 12/21.
[2018-05-09] MEDS: ROCEPHIN 1 GM in SODIUM CHLORIDE 50 ML IV SCH (20:49)
[2018-05-09] MEDS: MELATONIN PO SCH (20:53)
[2018-05-09] MEDS: PYRIDOXINE HCL PO SCH (20:53)
[2018-05-10] MEDS: SODIUM CHLORIDE 1,000 ML IV SCH ×2 (00:57→13:22)
[2018-05-10] MEDS: ALBUTEROL 0.083% NEB NEB SCH ×4 (04:29→21:30)
[2018-05-10] MEDS: PROTONIX PO SCH ×2 (05:40→16:32)
[2018-05-10] MEDS: FLONASE NAS SCH (08:31)
[2018-05-10] MEDS: SYMBICORT 80-4.5 MCG INHALER IH SCH ×2 (08:31→22:13)
[2018-05-10] MEDS: ASTELIN 0.1% NAS SCH ×2 (08:32→22:11)
[2018-05-10] MEDS: MIRALAX PO SCH (08:33)
[2018-05-10] MEDS: HYZAAR 50-12.5 MG TAB PO SCH (08:34)
[2018-05-10] MEDS: AGGRENOX CAPSULE PO SCH ×2 (08:34→22:06)
[2018-05-10] MEDS: DOXYCYCLINE HYCLATE PO SCH ×2 (08:34→22:13)
[2018-05-10] MEDS: NORVASC PO SCH (08:34)
[2018-05-10] MEDS: MAG-OX PO SCH (08:34)
[2018-05-10] MEDS: K-DUR PO SCH (08:35)
[2018-05-10] MEDS: SINGULAIR PO SCH (08:35)
[2018-05-10] MEDS: COREG PO SCH ×2 (08:35→16:35)
[2018-05-10] MEDS: NEURONTIN PO SCH ×2 (08:35→22:00)
[2018-05-10] MEDS: CARAFATE PO SCH ×3 (08:35→22:11)
[2018-05-10] MEDS: REQUIP PO SCH (08:36)
[2018-05-10] MEDS: SPIRIVA IH SCH (08:38)
[2018-05-10] MEDS: IPRATROPIUM BROMIDE 0.06% NS SCH ×2 (08:39→15:40)
[2018-05-10] MEDS: ROCEPHIN 1 GM in SODIUM CHLORIDE 50 ML IV SCH (21:59)
[2018-05-10] MEDS: PYRIDOXINE HCL PO SCH (22:03)
[2018-05-10] MEDS: MELATONIN PO SCH (22:03)
[2018-05-10] MEDS: NORCO 7.5-325 PO PRN (22:19)
[2018-05-11] MEDS: SODIUM CHLORIDE 1,000 ML IV SCH ×2 (00:13→12:01)
[2018-05-11] MEDS: IPRATROPIUM BROMIDE 0.06% NS SCH ×4 (00:41→22:25)
[2018-05-11] MEDS: ALBUTEROL 0.083% NEB NEB SCH ×4 (04:40→21:34)
[2018-05-11] MEDS: PROTONIX PO SCH ×2 (06:52→17:04)
[2018-05-11] MEDS: FLONASE NAS SCH (08:29)
[2018-05-11] MEDS: ASTELIN 0.1% NAS SCH ×2 (08:30→21:34)
[2018-05-11] MEDS: MIRALAX PO SCH (08:30)
[2018-05-11] MEDS: SYMBICORT 80-4.5 MCG INHALER IH SCH ×2 (08:30→21:39)
[2018-05-11] MEDS: SINGULAIR PO SCH (08:30)
[2018-05-11] MEDS: SPIRIVA IH SCH (08:30)
[2018-05-11] MEDS: CARAFATE PO SCH ×3 (08:31→21:33)
[2018-05-11] MEDS: DOXYCYCLINE HYCLATE PO SCH ×2 (08:31→21:34)
[2018-05-11] MEDS: REQUIP PO SCH (08:31)
[2018-05-11] MEDS: K-DUR PO SCH (08:31)
[2018-05-11] MEDS: COREG PO SCH ×2 (08:31→17:05)
[2018-05-11] MEDS: NEURONTIN PO SCH ×2 (08:32→21:34)
[2018-05-11] MEDS: AGGRENOX CAPSULE PO SCH ×2 (08:32→21:33)
[2018-05-11] MEDS: MAG-OX PO SCH (08:32)
[2018-05-11] MEDS: HYZAAR 50-12.5 MG TAB PO SCH (08:32)
[2018-05-11] MEDS: NORVASC PO SCH (08:32)
--- NOTE | 2018-05-11 08:42 | PCM.PROG ---
Lab review 05/11/18 patient to be seen again 05/12/18. Hemoccult + 05/09 6:40 am. No further bloody BM noted. No other specimens received. 05/10/18 Hgb WBC down from 20.27 to 18.52, plt down from 481 to 463 and Hgb down roughly 1G from 9.1 to 7.9. She is asymptomatic, SOA with activity but okay at rest, somewhat pale appearing. I will order CBC for 05/12/18 am and I will order retic count as well. Sodium is better at 133, k+ remains >4 at 4.13. Mg normalized 05/08. CK down to 205.8 and CKM at 2.990 (mildly up from yesterday). Discussed care with am nurse. WE will order repeat CBC for 05/12. I will type and cross and hold 1 unit. If she drops <7.0 we will transfuse 1 unit. Consider inpatient vs outpatient GI as next line as well. She does not seem to have fast bleed. Retic count to be ordered.
[2018-05-11] MEDS: NORCO 7.5-325 PO PRN (13:57)
[2018-05-11] MEDS: ROCEPHIN 1 GM in SODIUM CHLORIDE 50 ML IV SCH (21:34)
[2018-05-11] MEDS: PYRIDOXINE HCL PO SCH (22:26)
[2018-05-11] MEDS: MELATONIN PO SCH (22:26)
[2018-05-12] MEDS: ALBUTEROL 0.083% NEB NEB SCH ×4 (05:00→19:46)
[2018-05-12] MEDS: PROTONIX PO SCH ×2 (06:03→16:53)
[2018-05-12] MEDS: ASTELIN 0.1% NAS SCH ×2 (08:24→20:42)
[2018-05-12] MEDS: SPIRIVA IH SCH (08:24)
[2018-05-12] MEDS: FLONASE NAS SCH (08:24)
[2018-05-12] MEDS: SYMBICORT 80-4.5 MCG INHALER IH SCH ×2 (08:25→20:42)
[2018-05-12] MEDS: MIRALAX PO SCH (08:25)
[2018-05-12] MEDS: AGGRENOX CAPSULE PO SCH ×2 (08:26→20:42)
[2018-05-12] MEDS: SINGULAIR PO SCH (08:27)
[2018-05-12] MEDS: DOXYCYCLINE HYCLATE PO SCH ×2 (08:27→20:43)
[2018-05-12] MEDS: NEURONTIN PO SCH ×2 (08:27→20:43)
[2018-05-12] MEDS: HYZAAR 50-12.5 MG TAB PO SCH (08:27)
[2018-05-12] MEDS: CARAFATE PO SCH ×3 (08:27→20:43)
[2018-05-12] MEDS: K-DUR PO SCH (08:28)
[2018-05-12] MEDS: MAG-OX PO SCH (08:28)
[2018-05-12] MEDS: REQUIP PO SCH (08:28)
[2018-05-12] MEDS: COREG PO SCH ×2 (08:29→16:53)
[2018-05-12] MEDS: IPRATROPIUM BROMIDE 0.06% NS SCH ×3 (08:29→20:45)
[2018-05-12] MEDS: NORVASC PO SCH (08:29)
--- NOTE | 2018-05-12 11:28 | PCM.PROG ---
Subjective: 72 yo CF seen in ER 04/29/18 [facility] surgical neck fracture of left humerus, d/c home met with ortho, had alterred mental status, hypokalemia, hypomagnesemia, hyponatremia, hypocalcemia, hypotension, Elevated CK/CKMB and presented to ED 05/03/18 and I admitted her to hospital. We corrected the abnormalities except for CK/CKMB and she was transferred to TCU 05/06/18 w/ H+P admit done 05/07/18. Now Hospital day 10. Nursing called me yesterday asking if it was okay to d/c SCD and to use SUSHIL. Patient refused both. She is on aggrenox, which is reasonable at this time for prophy especially with daily ambulation. I will allow the d/c of the SCD. SUSHIL to use at least while in bed/sleeping. I saline locked IV yesterday, hold fluids. CBC/CMP today. Occult blood when available again. Type /screen and hold 1 unit. If <7.0 Hgb will tx. She has been more upbeat/ positive/alert and seems to be doing well. Has met 3/3 OT milestones, still only 1 of the phys therapy milestones. Plan D/C in next 48 hours to home with homehealth Pt. Up to bathroom w/ minimal stand by assist. No pain except in shoulder, breathing chronically poor but stable, vitals stable while in hospital. I do have her on rocephin/doxy for ?early pneumonia. She c/o urinary freq. I will check a urine culture for completeness. OOB regularly, up in chair regularly, spirits are good, she is ready to go home. Since 05/06/18 temp has been normal, afebrile. BP has been normal with SBP 112-140. O2 2 L. % sat ranging from 90-99 mostly at 97-98. RR 14-20. Had what appeared to be spurious RR (likely pulse rate of 70) on 05/08/18 20:00. She has had good uout with multiple voids to toilet. 25-50% of meals consumed. over last few days. BM are regular now. Weight is down to 116 lb. She seems to be doing well. Labs 05/12/18 showed WBC has decreased from 20.27 on 3/6 to 18.52 on 05/10 and now at 17.04. Hgb decreased from 9.1 to 7.9 to 7.8. MCV is 102.2 and chronically high. Neutrophil count is decreasing. Lymph % stable. Retic % 2. Absoulte count 1.3 and reticulocyte index <2 supporting hypoproliferation. B21 973 . Folate 9.0. No e/o low TSH 05/03/18. This may benefit from outpatient work up. Iron 05/03 30.2 and low. TIBC low at 169, %saturation 18%. Ferritin 05/03 985. Transferrin 118 low 05/03/18. 05/08/18 sodium 129.7 she is now at 133.9, K+ remains stable at 4.40. Cl normal 101. Cr 0.49. Calcium 8.78 and normal. Mg normalized 1.76. CK down to 205 05/10/18. Overall improving. REviewed OT/PT notes. Working on balance/coordination with phys and Occ therapy. Plan to return home at discharge w/ [facility] services. Should meet most goals by 05/13- per phys therapy notes as she is progressing. Evaluate outpatient for anemia. No transfusion if >7.5 will assess if 7-7.5 but likely no tx if >7. REVIEW OF SYMPTOMS: (Positives bolded) Essentially unchanged 05/05/18. General: weight loss, fever, chills, night sweats, fatigue, appetite loss ( BETTER), Nausea (BETTER), Constipation (BETTER) HEENT: blurry vision, eye pain, eye discharge, dry eyes, decreased vision, sore throat tinnitus, bloody nose, hearing loss, sinus pain/pressure, ear pain/ pressure. Respiratory: shortness of breath (CHRONIC/STABLE), cough (CHRONIC/STABLE), hemoptysis, wheezing, pleurisy, Cardiovascular: chest pain, PND, palpitation, edema, orthopnea, syncope, swelling of extremities Gastro: Nausea, vomiting, diarrhea, hematemesis, abdominal pain, constipation Genito: hematuria, dysuria, glycosuria, hesitancy, frequency, incontinence [place]: Arthralgia, myalgia, muscle weakness, joint swelling, LUE Skin: rash, pruritis, sores, nail changes, skin thickening, change in wart/mole , itching, rash, new lesions, pruritus, nail changes Neuro: Migraine, numbness, ataxia, tremor, vertigo, weakness LUE, memory loss, Irritability, dizziness Endocrine: excessive thirst, polyuria, cold intolerance, heat intolerance, goiter Psychiatric: depression, anxiety, anti-depressants, alcohol abuse, drug abuse, insomnia, change in sleep pattern and mood changes NO SI/HI Heme/lymph: bruising, bleeding gums, blood clots, swollen glands, lymphedema, Allergic/immune: allergic rhinitis, hay fever, asthma, hives Objective: Vital Signs - 24 hr 05/11/18 05/12/18 18:00 06:00 Temperature 98.4 F 98.6 F Pulse Rate 86 85 Respiratory 14 20 Rate Blood Pressure 112/72 128/69 O2 Sat by Pulse 97 97 Oximetry Constitutional: Appearance-No acute distress, Consistent with stated age, talks full sentences, hirsuitism along upper lip. Orientation- Oriented x 3, alert Build and Nutrition-[normal] General- Patient is pleasant and cooperative with the interview and exam, Ecchymosis prominently left chest, midline chest, right chest and to right bicep, along the posterior aspect of tricep and entirety of bicep down to the antecubital fossa. This continues to resolve and is currently a variety of colors. Normal touch sense, normal temp sense and normal movement distal to elbow. Normal bilateral Child Care Specialist 5/5. No skin breakdown about buttock at d/c or admit. No breakdown heels (padded). SCD in place. ENMT: Nasal mucosa- No bleeding noted and no ulcerations observed. [place], moist. Turbinates non boggy. Lips- normal color, moist without cracks/lesions Oral Cavity/Palate- hard/soft palate intact without lesions, oral mucosa pink and moist. Dentures in place, no oral lesions, Tongue normal midline. Oropharynx- no pharyngeal erythema, Uvula midline. No post nasal drip. No exudate. Salivary glands- Non tender to palpation CHEST/LUNG: Inspection- symmetric chest wall no pectus deformity. Normal effort , no distress, no use of accessory muscles. Palpation- nontender sternum, ribline. Ecchymosis along anterior chest and mostly along left pectoralis region, AC joint, lateral arm. Auscultation- Breath sounds decreased/coarse but remain baseline throughout all lung tobin. Adventitious sounds- Scattered wheezes, No rales, Scattered rhonchi. No accessory muscle use, no distress. Tolerating O2 NC. Talks in complete sentences, no distress. CARDIOVASCULAR: Auscultation- Regular rate and rhythm. Distant sounds, III/ murmur left sternal border noted in sitting, supine positions. This does radiate into axilla and carotid region. ABDOMEN: Inspection- normal and no visible pulsations. Normal contour. Auscultation- Bowel sounds normal, no abdominal bruits. Palpation/Percussion- soft, non-tender, no rebound tenderness, no rigidity (guarding), no jar tenderness, no masses. Peripheral Vascular: Upper extremity Left- Normal temperature with pink nailbeds and no ulcerations. Upper extremity Right- Normal temperature with pink nailbeds and no ulcerations. Lower extremity- Normal temperature with pink nailbeds and no ulcerations. DP pulses 2+ bilaterally. Onychomycosis, nail hypertrophy is present. Pedal hair reduced but intact. Normal capillary refill. Edema- No edema. Musculoskeletal: Generalized-No generalized swelling or edema of extremities, no digital clubbing or cyanosis, neurovascularly intact all four extremities. Upper extremity- Sitting at bedside. Symmetrical posture. Left arm inside of shoulder sling else no visible deformity. Prominent ecchymoses along the anterior shoulder, superior shoulder, lateral shoulder, left lateral pectoral region chest, cross midline to right chest and right bicep. Tender along AC joint, along upper humerus and down to elbow. This is better. She has no pain at lateral/medial epicondyle. Normal sensation along medial and lateral upper extremity proximally and distally. NO tenderness overlying right shoulder, chest on the right side. Child Care Specialist 5/5 and strength 5/5 bilateral UE. Elbow palpated, no tenderness overlying olecranon bilat. Normal supination, pronation to active/passive ROM bilaterally now. Bicep insertion/tricep insertion appear normal without obvious pathology on right, tender on left and guarding remains present. Known fracture of the left shoulder. She appears to have more movement Neurological: General- Moves all 4 extremities, LUE is currently in sling. Symmetrical face and body posture. Cranial nerves- individually evaluated II- XII and intact. PERRLA, Normal EOMI, visual/special senses appear intact, Face is symmetrical and normal sensation/movement, normal tongue, normal strength/ posture of neck musculature. Reflexes- intact with DTR 2+ bicep, brachial, tricep. Neuropsych: Oriented- Person, place, time. (AAOx3), Mood/affect- normal and congruent. Able to articulate well. Speech-Normal speech, normal rate, normal tone, normal use of language, volume and coherence. Thought content- Stable, communicative. Alert. Associations- intact, no SI/HI, no hallucinations, delusions, obsessions. Judgment/insight- Appropriate. Memory-Recall intact, remote and recent memory intact. Knowledge- Age appropriate fund of knowledge, concentration and attention span normal. H/H Trends 05/08/18 05/10/18 05/12/18 Range/Units 04:15 07:18 04:30 Hgb 9.1 L 7.9 L 7.8 L (12.0-16.0) g/dl Hct 27.7 L 23.3 L 23.7 L (37.0-47.0) % CPK/Troponin I Trends 05/08/18 05/10/18 Range/Units 04:15 07:18 Total Creatine Kinase 392.9 H 205.8 H (30-135) U/L CK-MB (CK-2) 2.240 2.990 H (0.0-2.38) ng/ml CK-MB (CK-2) % 0.5700 1.4500 Laboratory Last Values WBC 17.04 K/ul (4.6-10.2) H 05/12/18 04:30 RBC 2.32 10^6/ul (4.20-5.40) L 05/12/18 04:30 Hgb 7.8 g/dl (12.0-16.0) L 05/12/18 04:30 Hct 23.7 % (37.0-47.0) L 05/12/18 04:30 MCV 102.2 fl (81.0-99.0) H 05/12/18 04:30 MCH 33.6 pg (27.0-31.0) H 05/12/18 04:30 MCHC 32.9 (31.8-35.4) 05/12/18 04:30 RDW Coeff of Lynette 12.0 % (11.6-14.8) 05/12/18 04:30 Plt Count 491 10^3/uL (140-440) H 05/12/18 04:30 Immature Gran % (Auto) 0.8 % (0.0-5.0) 05/12/18 04:30 Neut % (Auto) 79.3 05/12/18 04:30 Lymph % (Auto) 9.9 (10.0-50.0) L 05/12/18 04:30 [place] % (Auto) 8.7 (0-10) 05/12/18 04:30 Eos % (Auto) 1.1 % (0.0-7.0) 05/12/18 04:30 Baso % (Auto) 0.2 % (0.0-3.0) 05/12/18 04:30 Reticulocyte % (Auto) 2.00 % 05/12/18 04:30 Immature Gran # (Auto) 0.1 (0.0-1.0) 05/12/18 04:30 Neut # (Auto) 13.5 K/ul (2.0-6.9) H 05/12/18 04:30 Lymph # (Auto) 1.7 K/uL (0.60-3.4) 05/12/18 04:30 [place] # (Auto) 1.5 K/uL (0.4-2.0) 05/12/18 04:30 Eos # (Auto) 0.2 K/ul (0.0-0.7) 05/12/18 04:30 Baso # (Auto) 0.0 K/uL (0-0.2) 05/12/18 04:30 Absolute Retic 0.0464 05/12/18 04:30 Retic Hgb Equivalent 32.4 05/12/18 04:30 Sodium 133.9 mmol/L (134.5-145) L 05/12/18 04:30 Potassium 4.40 mmol/L (3.5-5.1) 05/12/18 04:30 Chloride 101.0 mmol/L (98-107) 05/12/18 04:30 Carbon Dioxide 28.7 mmol/L (22-30.0) 05/12/18 04:30 Anion Gap 8.60 05/12/18 04:30 BUN 3.8 mg/dL (7-17) L 05/12/18 04:30 Creatinine 0.49 mg/dL (0.60-1.30) L 05/12/18 04:30 Estimated GFR (MDRD) 124.00 mL/min 05/12/18 04:30 BUN/Creatinine Ratio 7.75 05/12/18 04:30 Glucose 97.9 mg/dL (74-106) 05/12/18 04:30 Calcium 8.78 mg/dL (8.4-10.2) 05/12/18 04:30 Magnesium 1.76 mg/dL (1.6-2.3) 05/08/18 04:15 Total Bilirubin 0.31 mg/dL (0.2-1.3) 05/12/18 04:30 AST 28.1 U/L (14-36) 05/12/18 04:30 ALT 13.8 U/L (0-35) 05/12/18 04:30 Alkaline Phosphatase 61.4 U/L (53-141) 05/12/18 04:30 Total Creatine Kinase 205.8 U/L (30-135) H 05/10/18 07:18 CK-MB (CK-2) 2.990 ng/ml (0.0-2.38) H 05/10/18 07:18 CK-MB (CK-2) % 1.4500 05/10/18 07:18 Total Protein 5.07 g/dL (6.3-8.2) L 05/12/18 04:30 Albumin 2.69 g/dL (3.5-5.0) L 05/12/18 04:30 Globulin 2.38 05/12/18 04:30 Albumin/Globulin Ratio 1.13 05/12/18 04:30 Urine Color Yellow (YELLOW) 05/08/18 11:40 Urine Clarity Clear (CLEAR) 05/08/18 11:40 Urine pH 7.0 (5-9) 05/08/18 11:40 Ur Specific [place]er 1.010 (1.005-1.030) 05/08/18 11:40 Urine Protein Negative (NEGATIVE) 05/08/18 11:40 Urine Glucose (UA) Negative (NEGATIVE) 05/08/18 11:40 Urine Ketones Negative (NEGATIVE) 05/08/18 11:40 Urine Blood Negative (NEGATIVE) 05/08/18 11:40 Urine Nitrite Negative (NEGATIVE) 05/08/18 11:40 Urine Bilirubin Negative (NEGATIVE) 05/08/18 11:40 Urine Urobilinogen 0.2 (0.2) 05/08/18 11:40 Ur Leukocyte Esterase 1+ (NEGATIVE) 05/08/18 11:40 Urine Microscopic WBC 0-2 (0-2) 05/08/18 11:40 Ur Squamous Epith Cells 0-2 (0-5) 05/08/18 11:40 Urine Bacteria Trace (NOT PRESENT) 05/08/18 11:40 Stl Occult Blood (IFOB) Positive (NEGATIVE) 05/09/18 06:40 Stool Occult Blood #2 No specimen received (NEGATIVE) 05/09/18 06:40 Stool Occult Blood #3 No specimen received (NEGATIVE) 05/09/18 06:40 Blood Type A POSITIVE 05/11/18 09:28 Antibody Screen Negative 05/11/18 09:28 (1) Weakness Status: Acute Code(s): R53.1 - WEAKNESS SNOMED Code(s): 33091935 (2) Falls Status: Acute Code(s): W19.XXXA - UNSPECIFIED FALL, INITIAL ENCOUNTER SNOMED Code(s): 1312566 (3) Humeral surgical neck fracture Status: Acute Code(s): S42.213A - UNSP DISP FX OF SURGICAL NECK OF UNSP HUMERUS, INIT SNOMED Code(s): 023829458 (4) Balance disorder Status: Acute Code(s): R26.89 - OTHER ABNORMALITIES OF GAIT AND MOBILITY SNOMED Code(s): 881023274 (5) Decreased mobility Status: Acute Code(s): R26.89 - OTHER ABNORMALITIES OF GAIT AND MOBILITY SNOMED Code(s): 4849795 (6) COPD (chronic obstructive pulmonary disease) Status: Chronic Code(s): J44.9 - CHRONIC OBSTRUCTIVE PULMONARY DISEASE, UNSPECIFIED SNOMED Code(s): 79573918 (7) Constipation Status: Chronic Code(s): K59.00 - CONSTIPATION, UNSPECIFIED SNOMED Code(s): 80431266 (8) Elevated CK-MB level Status: Chronic Code(s): R74.8 - ABNORMAL LEVELS OF OTHER SERUM ENZYMES SNOMED Code(s): 953288993 (9) Hypomagnesemia Status: Resolved Code(s): E83.42 - HYPOMAGNESEMIA SNOMED Code(s): 137480076 (10) Leukocytosis Status: Chronic Code(s): D72.829 - ELEVATED WHITE BLOOD CELL COUNT, UNSPECIFIED SNOMED Code(s): 972381784 (11) Light smoker Status: Chronic Plan: Generalized Weakness/Functional Decline/Balance Issues: TCU status, OT/Phys therapy following. Improving. May plan to d/c after phys therapy/OT see again 05/13/18. Home health, rosibel walker/orders to be prepared at D/C. Admitted to Swing Bed 05/06/18. Now hospital day 10, TCU day 7. Rhabdomyolysis/Elevated CK/CKMB: Continuing to improve. NO further monitoring as this is declining with time. Humerus Fracture: Limit mobility/movement of the fracture. Concern for frozen shoulder. still w/o obvious hematoma, resolving ecchymosis. no obvious/active bleed. F/u ortho as Outpatient - Continue phys/OT. Leukocytosis: Improving. On abx now doxy 100 BID and ceftriaxone 1gram IV daily x 5 days. Urine evaluated and no obvious infection, Urinary freq but on IV fluids. NO dysuria, no burning. - Repeat CBC in am 05/14-. Hypokalemia: Resolved Oral K+CL- 20 BID to continue. - REpeat CMP 05/14- - Continue HCTZ home med, will monitor for now. Anemia: Down to 7.9 again. type and cross and hold. I have backed down on fluids. Repeat CBC in next few days. She is staying above 7 and she is stable. If she drops below 7 transfuse 1 unit. Continue to hold iron PO as not iron def. B12 was normal. Macrocytic process. Monitor CBC, back down on fluids. If stable GI as outpatient. If worsening anemia, consider transfer to GI for inpatient eval. - Hemocult + (OFF IRON) - CBC am 05/11/18. Hypomagnesemia: Now resolved. - Continue PO Mag Oxide 400mg 1 PO BID. Tobacco: Tobacco Cessation reviewed w/ patient again today. She feels fine. Continued cessation encouraged. Does not want patch Constipation: Miralax PRN. BM regularly now. KUB no acute obstruction. Post surgical changes in abdomen. No other pathology. Hemoccult + for blood - F/U GI as outpatient. - hemoccult again Diet: Regular DVT PROPHY: SUSHIL/SCD refused by patient. Continue aggrenox, Continue mobilization. Monitor CBC. - Does not want injection - Does not want SUSHIL/SCD - Aware of R/B/A to this Pain: [place] per home dosing daily 7.5mg/325mg to continue. R/B/A d/w patient. Code status: DNR Disposition: Admitted to SCU for therapy PHys/OT 05/06, H+P completed 05/07. Seen over last 1 week roughly QOD. She is improving and plan now is d/c in next 2-3 days if she continues to improve. See what phys therapy and occ therapy have to say. Progressing with goals. 05/13-05/17 is current plan per their report. May d/c with home health/phys therapy. Continue to work on balance, work on strengthening and to use arm. Hemiwalker to be rx at d/c. She has no interest in going to the [facility]. She has home [facility], [facility] that we can d/c to their assistance in 1-2 weeks. She has resolving bruising. Pain is reasonably controlled with norco TID-QID. These are now PRN and not scheduled. She is tolerating meals, good uout. BM regularly now during hospital stay. We need to continue to monitor Hgb, CK/CKMB, electrolytes. >35 minutes, moderate severity , spent on subsequent care today. We discussed labs, talked about physical/ occupational therapy. Reviewed imaging. Radha Zunigalivan Daughter/POA. She continues to meet criteria for SCU.
[2018-05-12] MEDS: NORCO 7.5-325 PO PRN ×2 (13:04→22:54)
[2018-05-12] MEDS: ROCEPHIN 1 GM in SODIUM CHLORIDE 50 ML IV SCH (20:42)
[2018-05-12] MEDS: MELATONIN PO SCH (20:45)
[2018-05-12] MEDS: PYRIDOXINE HCL PO SCH (20:45)
[2018-05-13] MEDS: ALBUTEROL 0.083% NEB NEB SCH ×4 (05:02→20:00)
[2018-05-13] MEDS: PROTONIX PO SCH ×2 (05:44→16:32)
[2018-05-13] MEDS: ASTELIN 0.1% NAS SCH ×2 (08:24→21:10)
[2018-05-13] MEDS: FLONASE NAS SCH (08:25)
[2018-05-13] MEDS: SYMBICORT 80-4.5 MCG INHALER IH SCH ×2 (08:25→21:10)
[2018-05-13] MEDS: SPIRIVA IH SCH (08:26)
[2018-05-13] MEDS: NORVASC PO SCH (08:27)
[2018-05-13] MEDS: CARAFATE PO SCH ×4 (08:27→21:11)
[2018-05-13] MEDS: K-DUR PO SCH (08:27)
[2018-05-13] MEDS: DOXYCYCLINE HYCLATE PO SCH (08:27)
[2018-05-13] MEDS: REQUIP PO SCH (08:28)
[2018-05-13] MEDS: AGGRENOX CAPSULE PO SCH ×2 (08:28→21:10)
[2018-05-13] MEDS: SINGULAIR PO SCH (08:28)
[2018-05-13] MEDS: HYZAAR 50-12.5 MG TAB PO SCH (08:28)
[2018-05-13] MEDS: NEURONTIN PO SCH ×2 (08:28→21:11)
[2018-05-13] MEDS: COREG PO SCH ×2 (08:28→16:32)
[2018-05-13] MEDS: IPRATROPIUM BROMIDE 0.06% NS SCH ×3 (08:29→21:12)
[2018-05-13] MEDS: MIRALAX PO SCH (08:29)
[2018-05-13] MEDS: MAG-OX PO SCH (08:29)
[2018-05-13] MEDS: NORCO 7.5-325 PO PRN ×2 (12:20→21:11)
[2018-05-13] MEDS: MELATONIN PO SCH (21:12)
[2018-05-13] MEDS: PYRIDOXINE HCL PO SCH (21:12)
[2018-05-14] MEDS: ALBUTEROL 0.083% NEB NEB SCH ×2 (04:32→10:07)
[2018-05-14] MEDS: CARAFATE PO SCH ×2 (05:31→11:17)
[2018-05-14] MEDS: PROTONIX PO SCH (05:31)
[2018-05-14 06:21] VITALS: BP 122/67; TEMP 98.7
[2018-05-14] MEDS: NORCO 7.5-325 PO PRN (06:23)
[2018-05-14] MEDS: FLONASE NAS SCH (08:09)
[2018-05-14] MEDS: ASTELIN 0.1% NAS SCH (08:09)
[2018-05-14] MEDS: SYMBICORT 80-4.5 MCG INHALER IH SCH (08:09)
[2018-05-14] MEDS: SPIRIVA IH SCH (08:10)
[2018-05-14] MEDS: MIRALAX PO SCH (08:11)
[2018-05-14] MEDS: SINGULAIR PO SCH (08:12)
[2018-05-14] MEDS: MAG-OX PO SCH (08:12)
[2018-05-14] MEDS: K-DUR PO SCH (08:12)
[2018-05-14] MEDS: NEURONTIN PO SCH (08:12)
[2018-05-14] MEDS: HYZAAR 50-12.5 MG TAB PO SCH (08:12)
[2018-05-14] MEDS: AGGRENOX CAPSULE PO SCH (08:12)
[2018-05-14] MEDS: IPRATROPIUM BROMIDE 0.06% NS SCH (08:13)
[2018-05-14] MEDS: REQUIP PO SCH (08:13)
[2018-05-14] MEDS: NORVASC PO SCH (08:13)
[2018-05-14] MEDS: COREG PO SCH (08:13)
--- NOTE | 2018-05-14 11:06 | PCM.DC ---
Final Diagnosis: Balance disorder (Acute) Decreased mobility (Acute) Falls (Acute) Humeral surgical neck fracture (Acute) Weakness (Acute) Anemia (Chronic) COPD (chronic obstructive pulmonary disease) (Chronic) Chronic obstructive pulmonary disease (Chronic) Constipation (Chronic) Elevated CK-MB level (Chronic) Leukocytosis (Chronic) Light smoker (Chronic) (1) Weakness Status: Acute Code(s): R53.1 - WEAKNESS SNOMED Code(s): 55531740 (2) Falls Status: Acute Code(s): W19.XXXA - UNSPECIFIED FALL, INITIAL ENCOUNTER SNOMED Code(s): 0870815, 914057468 (3) Humeral surgical neck fracture Status: Acute Code(s): S42.213A - UNSP DISP FX OF SURGICAL NECK OF UNSP HUMERUS, INIT SNOMED Code(s): 510755590 (4) Balance disorder Status: Acute Code(s): R26.89 - OTHER ABNORMALITIES OF GAIT AND MOBILITY SNOMED Code(s): 709108549 (5) Decreased mobility Status: Acute Code(s): R26.89 - OTHER ABNORMALITIES OF GAIT AND MOBILITY SNOMED Code(s): 6167503 (6) COPD (chronic obstructive pulmonary disease) Status: Chronic Code(s): J44.9 - CHRONIC OBSTRUCTIVE PULMONARY DISEASE, UNSPECIFIED SNOMED Code(s): 48429212 (7) Constipation Status: Chronic Code(s): K59.00 - CONSTIPATION, UNSPECIFIED SNOMED Code(s): 42534736 (8) Elevated CK-MB level Status: Chronic Code(s): R74.8 - ABNORMAL LEVELS OF OTHER SERUM ENZYMES SNOMED Code(s): 843501925 (9) Hypomagnesemia Status: Resolved Code(s): E83.42 - HYPOMAGNESEMIA SNOMED Code(s): 451509493 (10) Leukocytosis Status: Chronic Code(s): D72.829 - ELEVATED WHITE BLOOD CELL COUNT, UNSPECIFIED SNOMED Code(s): 608444287, 055429427 (11) Light smoker Status: Chronic Reason for Hospitalization: TCU admission for weakness, debility, increased risk for falls and s/p fall found down and numerous electorlyte abnl to include K+/CA++, MG++, NA+, anemia, elevated CK/CKMB. Prognosis at Discharge: Met goals of phys therapy and Occupational therapy will discharge with home health [facility]. Patient does not want hemiwalker. Finished abx in hospital. No abx at d/c. Anemia improved back to hgb of 9.0, better than 7.8. We will continue to monitor. Condition at Discharge: Stable/improved from admit 05/03 and TCU admission 05/06/18. She is breathing stably, she has improved hgb, improved K+, improved sodium, improved calcium, improved magnesium. She has met therapy goals and is optimized for discharge. Medications at Discharge: Ambulatory Orders Medication Instructions Recorded Hydrocodone/Acetaminophen [Driver 1 each PO Q6HR 10/30/16 7.5-325 Tablet] Melatonin/Pyridoxine HCl (B6) 10 mg PO BEDTIME 07/20/17 [Melatonin 10 mg Tablet] Amlodipine Besylate [Norvasc] 5 mg PO DAILY tablet 05/06/18 Budesonide/Formoterol Fumarate 2 puff IH BID inh 05/06/18 [Symbicort 80-4.5 Mcg Inhaler] Albuterol Sulfate 0.083% Neb 1 vial NEB RTQID vial.neb 05/14/18 [Albuterol 0.083% Neb] Magnesium Oxide [Mag-Ox] 400 mg PO DAILY 90 Days #90 tablet 05/14/18 Polyethylene Glycol 3350 [Miralax] 17 gm PO DAILY 30 Days #30 05/14/18 powd.pack Potassium Chloride [K-Dur] 20 meq PO DAILYWM 30 Days #30 tab 05/14/18 Lab/Diagnostics: Laboratory Last Values WBC 14.60 K/ul (4.6-10.2) H 05/14/18 08:37 RBC 2.63 10^6/ul (4.20-5.40) L 05/14/18 08:37 Hgb 9.0 g/dl (12.0-16.0) L 05/14/18 08:37 Hct 26.9 % (37.0-47.0) L 05/14/18 08:37 MCV 102.3 fl (81.0-99.0) H 05/14/18 08:37 MCH 34.2 pg (27.0-31.0) H 05/14/18 08:37 MCHC 33.5 (31.8-35.4) 05/14/18 08:37 RDW Coeff of Lynette 12.0 % (11.6-14.8) 05/14/18 08:37 Plt Count 534 10^3/uL (140-440) H 05/14/18 08:37 Immature Gran % (Auto) 0.6 % (0.0-5.0) 05/14/18 08:37 Neut % (Auto) 77.4 05/14/18 08:37 Lymph % (Auto) 11.6 (10.0-50.0) 05/14/18 08:37 Taylor % (Auto) 8.2 (0-10) 05/14/18 08:37 Eos % (Auto) 1.7 % (0.0-7.0) 05/14/18 08:37 Baso % (Auto) 0.5 % (0.0-3.0) 05/14/18 08:37 Reticulocyte % (Auto) 2.00 % 05/12/18 04:30 Immature Gran # (Auto) 0.1 (0.0-1.0) 05/14/18 08:37 Neut # (Auto) 11.3 K/ul (2.0-6.9) H 05/14/18 08:37 Lymph # (Auto) 1.7 K/uL (0.60-3.4) 05/14/18 08:37 Taylor # (Auto) 1.2 K/uL (0.4-2.0) 05/14/18 08:37 Eos # (Auto) 0.3 K/ul (0.0-0.7) 05/14/18 08:37 Baso # (Auto) 0.1 K/uL (0-0.2) 05/14/18 08:37 Absolute Retic 0.0464 05/12/18 04:30 Retic Hgb Equivalent 32.4 05/12/18 04:30 Sodium 133.9 mmol/L (134.5-145) L 05/12/18 04:30 Potassium 4.40 mmol/L (3.5-5.1) 05/12/18 04:30 Chloride 101.0 mmol/L (98-107) 05/12/18 04:30 Carbon Dioxide 28.7 mmol/L (22-30.0) 05/12/18 04:30 Anion Gap 8.60 05/12/18 04:30 BUN 3.8 mg/dL (7-17) L 05/12/18 04:30 Creatinine 0.49 mg/dL (0.60-1.30) L 05/12/18 04:30 Estimated GFR (MDRD) 124.00 mL/min 05/12/18 04:30 BUN/Creatinine Ratio 7.75 05/12/18 04:30 Glucose 97.9 mg/dL (74-106) 05/12/18 04:30 Calcium 8.78 mg/dL (8.4-10.2) 05/12/18 04:30 Magnesium 1.76 mg/dL (1.6-2.3) 05/08/18 04:15 Total Bilirubin 0.31 mg/dL (0.2-1.3) 05/12/18 04:30 AST 28.1 U/L (14-36) 05/12/18 04:30 ALT 13.8 U/L (0-35) 05/12/18 04:30 Alkaline Phosphatase 61.4 U/L (53-141) 05/12/18 04:30 Total Creatine Kinase 205.8 U/L (30-135) H 05/10/18 07:18 CK-MB (CK-2) 2.990 ng/ml (0.0-2.38) H 05/10/18 07:18 CK-MB (CK-2) % 1.4500 05/10/18 07:18 Total Protein 5.07 g/dL (6.3-8.2) L 05/12/18 04:30 Albumin 2.69 g/dL (3.5-5.0) L 05/12/18 04:30 Globulin 2.38 05/12/18 04:30 Albumin/Globulin Ratio 1.13 05/12/18 04:30 Urine Color Yellow (YELLOW) 05/08/18 11:40 Urine Clarity Clear (CLEAR) 05/08/18 11:40 Urine pH 7.0 (5-9) 05/08/18 11:40 Ur Specific Elmer 1.010 (1.005-1.030) 05/08/18 11:40 Urine Protein Negative (NEGATIVE) 05/08/18 11:40 Urine Glucose (UA) Negative (NEGATIVE) 05/08/18 11:40 Urine Ketones Negative (NEGATIVE) 05/08/18 11:40 Urine Blood Negative (NEGATIVE) 05/08/18 11:40 Urine Nitrite Negative (NEGATIVE) 05/08/18 11:40 Urine Bilirubin Negative (NEGATIVE) 05/08/18 11:40 Urine Urobilinogen 0.2 (0.2) 05/08/18 11:40 Ur Leukocyte Esterase 1+ (NEGATIVE) 05/08/18 11:40 Urine Microscopic WBC 0-2 (0-2) 05/08/18 11:40 Ur Squamous Epith Cells 0-2 (0-5) 05/08/18 11:40 Urine Bacteria Trace (NOT PRESENT) 05/08/18 11:40 Stl Occult Blood (IFOB) Positive (NEGATIVE) 05/12/18 20:20 Stool Occult Blood #2 No specimen received (NEGATIVE) 05/12/18 20:20 Stool Occult Blood #3 No specimen received (NEGATIVE) 05/12/18 20:20 Blood Type A POSITIVE 05/11/18 09:28 Antibody Screen Negative 05/11/18 09:28 H/H Trends 05/08/18 05/10/18 05/12/18 Range/Units 04:15 07:18 04:30 Hgb 9.1 L 7.9 L 7.8 L (12.0-16.0) g/dl Hct 27.7 L 23.3 L 23.7 L (37.0-47.0) % 05/14/18 Range/Units 08:37 Hgb 9.0 L (12.0-16.0) g/dl Hct 26.9 L (37.0-47.0) % Na/K Trends 05/08/18 05/10/18 05/12/18 Range/Units 04:15 07:18 04:30 Sodium 129.7 L 133.0 L 133.9 L (134.5-145) mmol/L Potassium 4.40 4.13 4.40 (3.5-5.1) mmol/L CPK/Troponin I Trends 05/08/18 05/10/18 Range/Units 04:15 07:18 Total Creatine Kinase 392.9 H 205.8 H (30-135) U/L CK-MB (CK-2) 2.240 2.990 H (0.0-2.38) ng/ml CK-MB (CK-2) % 0.5700 1.4500 Abd x-ray no acute obstruction. Post surgical changes in abd and treatment changes in LSP. CXR 05/09 lungs are hyperinflated mild ateectasis vs infection. Small effusion present. COPD. Left humeral fracture unchanged. Hiatal hernia. Hemoccult was + for blood. We will have her f/u with GI as outpatient. Education Provided to Patient and Family: 1. Smoking cessation 2. F/U with me in clinic in 1 week. 3. Fall risk d/w patient 4. F/U with [facility] 5. Call/f/u if breathing issues or worsening. 6. No Abx at d/c 7. CBC in 1 week to make sure that anemia is stable. 8. CMP in 1 week to make sure renal function is okay. Follow-ups: 1. [facility] at d/c 2. F/U with me in 1 week. 3. F/U with ortho as directed for left humeral fx. Disposition: HOME SELF-CARE Hospital Course: 72 yo female Patient presented initially to ER 04/29/18 with arm pain post fall and found down unknown duration. She was found to have surgical neck humerus fracture on left, placed into sling, DR. Glaser saw her and not surgical. Returned to ED 05/03/18 at 09:00 w/ weakness generalized, altered mental status, confusion, history of fall, left shoulder fracture. Markedly low BP initially < 50SBP reported per ER doctor. She was found to be hyponatremic, hypokalemic, hypomagnesemic, hypoalbuminemic, elevated CK/CKMB. Fluids given, electrolytes replaced and she improved and was felt to be good candidate for TCU. Reviewed D /C summary from 05/06/18 with patient. I did not summarize this again in here. She was admitted to TCU on 05/06/18. She was found to have ?Pneumonia through imaging on 05/08/18 and was given abx rocephin daily x 5 days and doxycycline 100mg PO BID. Met with occupational therapy, physical therapy. She was ultimately found to have met criteria for d/c and was d/c home 05/15/18. She did have prominent anemia, type crossed and held 1 unit, no blood transufsion. She was on aggrenox and SCD for her blood thinner needs. Diet was normal. At D /C she did not want hemiwalker. She had completed abx x 5 days. Home health [facility] to see patient. Talked with patient, case management, talked with daughter Radha today. She has been optimized with this hospital stay and she wants to go home. Vitals stable/normal. Up w/ assist. Continue home O2. Fall precautions important. Night lights encouraged. Vital Signs (72 hours) 05/12/18 05/13/18 05/13/18 17:42 06:00 18:00 Temperature 99.0 F 98.5 F 98.4 F Pulse Rate 64 61 66 Respiratory 16 18 18 Rate Blood Pressure 110/67 127/65 94/52 L O2 Sat by Pulse 98 97 95 Oximetry 05/14/18 06:00 Temperature 98.7 F Pulse Rate 67 Respiratory 16 Rate Blood Pressure 122/67 O2 Sat by Pulse 94 L Oximetry Constitutional: Appearance-No acute distress, Consistent with stated age, talks full sentences, hirsuitism along upper lip. Orientation- Oriented x 3, alert Build and Nutrition-[normal] General- Patient is pleasant and cooperative with the interview and exam, Ecchymosis prominently left chest, midline chest, right chest and to right bicep, along the posterior aspect of tricep and entirety of bicep down to the antecubital fossa. This continues to resolve and is currently a variety of colors. Normal touch sense, normal temp sense and normal movement distal to elbow. CHEST/LUNG: Inspection- symmetric chest wall no pectus deformity. Normal effort , no distress, no use of accessory muscles. Palpation- nontender sternum, ribline. Ecchymosis along anterior chest and mostly along left pectoralis region, AC joint, lateral arm. Auscultation- Breath sounds decreased/coarse but remain baseline throughout all lung tobin. Adventitious sounds- Scattered wheezes, No rales, Scattered rhonchi. No accessory muscle use, no distress. Tolerating O2 NC. Talks in complete sentences, no distress. CARDIOVASCULAR: Auscultation- Regular rate and rhythm. Distant sounds, III/ murmur left sternal border noted in sitting, supine positions. This does radiate into axilla and carotid region. ABDOMEN: Inspection- normal and no visible pulsations. Normal contour. Auscultation- Bowel sounds normal, no abdominal bruits. Palpation/Percussion- soft, non-tender, no rebound tenderness, no rigidity (guarding), no jar tenderness, no masses. Peripheral Vascular: Upper extremity Left- Normal temperature with pink nailbeds and no ulcerations. Upper extremity Right- Normal temperature with pink nailbeds and no ulcerations. Lower extremity- Normal temperature with pink nailbeds and no ulcerations. Edema- No edema. Musculoskeletal: Generalized-No generalized swelling or edema of extremities, no digital clubbing or cyanosis, neurovascularly intact all four extremities. Upper extremity- Sitting at bedside. Symmetrical posture. Left arm inside of shoulder sling else no visible deformity. Prominent ecchymoses along the anterior shoulder, superior shoulder, lateral shoulder, left lateral pectoral region chest, cross midline to right chest and right bicep. Tender along AC joint, along upper humerus and down to elbow. This is better. She has no pain at lateral/medial epicondyle. Normal sensation along medial and lateral upper extremity proximally and distally. NO tenderness overlying right shoulder, chest on the right side. Undercar Specialist 5/5 and strength 5/5 bilateral UE. Elbow palpated, no tenderness overlying olecranon bilat. Normal supination, pronation to active/passive ROM bilaterally now. Bicep insertion/tricep insertion appear normal without obvious pathology on right, tender on left and guarding remains present. Known fracture of the left shoulder. She appears to have more movement Neurological: General- Moves all 4 extremities, SAI is currently in sling. Symmetrical face and body posture. Cranial nerves- individually evaluated II- XII and intact. PERRLA, Normal EOMI, visual/special senses appear intact, Face is symmetrical and normal sensation/movement, normal tongue, normal strength/ posture of neck musculature. Reflexes- intact with DTR 2+ bicep, brachial, tricep. Neuropsych: Oriented- Person, place, time. (AAOx3), Mood/affect- normal and congruent. Able to articulate well. Speech-Normal speech, normal rate, normal tone, normal use of language, volume and coherence. Thought content- Stable, communicative. Alert. Associations- intact, no SI/HI, no hallucinations, delusions, obsessions. Judgment/insight- Appropriate. Memory-Recall intact, remote and recent memory intact. Knowledge- Age appropriate fund of knowledge, concentration and attention span normal. Plan: 1. CBC in 1 week (outpatient at [facility]) 2. F/U with me in 1 week 3. home health for nursing/physical therapy/occupational therapy 4. F/U with ortho as directed. 5. diet regular 6. Activity ad jesus. 7. D/C from TCU today. 8. DNR. continue medications as listed on nursing discharge information sheet prescriptions: 1. Mag Oxide 400 mg daily 2. Miralax 17 grams (1 capful) daily 3. K-dur 20 meq daily >30 minutes spent on d/c today.
== END 2018-05-14 13:05 | disposition home or self-care (01) | DRG 563 ==
LOC: MEDSURG B 11:58
PROVIDERS: ADMIT Family Medicine; ATTEND Family Medicine
DX: S42.213A Unspecified displaced fracture of surgical neck of unspecified humerus, initial encounter for closed fracture (principal); R26.89 Other abnormalities of gait and mobility; J44.9 Chronic obstructive pulmonary disease, unspecified; K59.00 Constipation, unspecified; R74.8 Abnormal levels of other serum enzymes; E83.42 Hypomagnesemia; D72.829 Elevated white blood cell count, unspecified; W19.XXXA Unspecified fall, initial encounter
CPT/HCPCS: 36415; 80053; 81001; 82272; 82550; 82553; 83735; 85025; 85045; 86850; 86900; 87086; 94640; 97802

== ENCOUNTER 2018-05-20 13:05 | Outpatient (CLI) | payer OTHER | END 2018-05-20 13:06 | disposition home or self-care (01) | LOC: RHC-LAB 13:05 → FCC-LAB 13:06 | PROVIDERS: ATTEND Family Medicine | DX: D53.9 Nutritional anemia, unspecified (principal); E87.6 Hypokalemia; Z09 Encounter for follow-up examination after completed treatment for conditions other than malignant neoplasm; R74.8 Abnormal levels of other serum enzymes | CPT/HCPCS: 36415; 80053; 82550; 85008; 85025 ==

== ENCOUNTER 2018-05-30 09:30 | Outpatient (CLI) | END 2018-05-30 09:31 | disposition home or self-care (01) | LOC: RHC-LAB 09:30 → FCC-LAB 09:31 | PROVIDERS: ATTEND Family Medicine | DX: D53.9 Nutritional anemia, unspecified (principal); D47.3 Essential (hemorrhagic) thrombocythemia | CPT/HCPCS: 36415; 82607; 82728; 82746; 83540; 83550; 85025; 85045 ==

== ENCOUNTER 2018-06-12 16:05 | Outpatient (CLI) | END 2018-06-12 16:06 | disposition home or self-care (01) | LOC: RHC-LAB 16:05 → FCC-LAB 16:06 | PROVIDERS: ATTEND Family Medicine | DX: D50.0 Iron deficiency anemia secondary to blood loss (chronic) (principal) | CPT/HCPCS: 36415; 85025 ==

== ENCOUNTER 2018-07-08 14:59 | Outpatient (CLI) | payer OTHER | END 2018-07-08 15:00 | disposition home or self-care (01) | LOC: RHC-LAB 14:59 | PROVIDERS: ATTEND Family Medicine | DX: D64.9 Anemia, unspecified (principal); E87.1 Hypo-osmolality and hyponatremia | CPT/HCPCS: 36415; 80053; 85025 ==

== ENCOUNTER 2018-08-01 13:37 | Outpatient (CLI) | payer OTHER | END 2018-08-01 13:38 | disposition home or self-care (01) | LOC: LAB 13:37 | PROVIDERS: ATTEND Family Medicine | DX: R11.0 Nausea (principal); R10.84 Generalized abdominal pain; R35.0 Frequency of micturition | CPT/HCPCS: 36415; 80053; 81001; 85025; 87086 ==

== ENCOUNTER 2018-08-01 19:10 | Outpatient (CLI) | payer OTHER | END 2018-08-01 19:25 | disposition short-term general hospital (02) | LOC: AMBL 19:10 | PROVIDERS: ATTEND Internal Medicine Geriatric Medicine | DX: R55 Syncope and collapse (principal) ==

== ENCOUNTER 2018-08-02 12:13 | Outpatient (CLI) | payer OTHER | END 2018-08-02 12:14 | disposition home or self-care (01) | LOC: RHC-LAB 12:13 → FCC-LAB 12:14 | PROVIDERS: ATTEND Family Medicine | DX: R11.0 Nausea (principal); R10.84 Generalized abdominal pain; R39.15 Urgency of urination; D64.9 Anemia, unspecified; E87.1 Hypo-osmolality and hyponatremia | CPT/HCPCS: 36415; 80053; 85025; 87086 ==

== ENCOUNTER 2018-08-05 13:49 | Outpatient (CLI) | payer OTHER | END 2018-08-05 13:50 | disposition home or self-care (01) | LOC: LAB 13:49 | PROVIDERS: ATTEND Family Medicine | DX: D50.0 Iron deficiency anemia secondary to blood loss (chronic) (principal) | CPT/HCPCS: 82272 ==

== ENCOUNTER 2018-08-12 13:37 | Outpatient (CLI) | END 2018-08-12 13:38 | disposition home or self-care (01) | LOC: RHC-LAB 13:37 → FCC-LAB 13:38 | PROVIDERS: ATTEND Family Medicine | DX: D50.0 Iron deficiency anemia secondary to blood loss (chronic) (principal); E87.1 Hypo-osmolality and hyponatremia; E87.6 Hypokalemia | CPT/HCPCS: 36415; 80053; 85025 ==

== ENCOUNTER 2018-08-14 11:47 | Outpatient (CLI) | END 2018-08-14 11:48 | disposition home or self-care (01) | LOC: CAR 11:47 | PROVIDERS: ATTEND Family Medicine | DX: Z99.81 Dependence on supplemental oxygen (principal) | CPT/HCPCS: 94761 ==

== ENCOUNTER 2018-08-15 08:00 | Outpatient (CLI) | payer OTHER | END 2018-08-15 08:01 | disposition home or self-care (01) | LOC: RHC-LAB 08:00 → FCC-LAB 08:01 | PROVIDERS: ATTEND Pediatrics Pediatric Cardiology | DX: R62.7 Adult failure to thrive (principal); S42.232D 3-part fracture of surgical neck of left humerus, subsequent encounter for fracture with routine healing | CPT/HCPCS: 36415; 80053 ==

== ENCOUNTER 2018-08-19 10:49 | Outpatient (CLI) | END 2018-08-19 10:50 | disposition home or self-care (01) | LOC: RHC-LAB 10:49 → FCC-LAB 10:50 | PROVIDERS: ATTEND Family Medicine | DX: E87.1 Hypo-osmolality and hyponatremia (principal) | CPT/HCPCS: 36415; 80053 ==

== ENCOUNTER 2018-09-03 01:03 | Emergency (ER) ==
[2018-09-03 01:17] VITALS: BP 145/92; TEMP 97.1; BMI 19.8
[2018-09-03] MEDS ORDERED: XOPENEX 1.25 MG NEB STA (01:17)
[2018-09-03] MEDS ORDERED: DUONEB NEB STA (01:17)
[2018-09-03] MEDS ORDERED: SOLU-MEDROL 125 MG IVP STA (01:18)
--- NOTE | 2018-09-03 02:23 | DI ---
Exam: Chest one-view History: Dyspnea FINDINGS: Normal cardiomediastinal contours aside from a small hiatus hernia shadow. Normal pulmona ry vasculature. Atherosclerotic calcification of the aorta. The lungs are hyperexpanded. No infilt rative opacities. No acute chest wall abnormality. Prior healed left posterior rib fracture. Inter wilman left shoulder arthroplasty compared with 03/16/2018. Impression: No acute cardiopulmonary disease Small hiatus hernia Possible component of chronic obstructive pulmonary disease
--- NOTE | 2018-09-03 04:19 | CT ---
EXAM: CT angiogram of the chest with intravenous contrast 09/03/2018. Multi planar reformatted imag es obtained. MIP and three-dimensional reconstructed images provided HISTORY: Dyspnea with elevated D-dimer COMPARISON: 09/03/2018, 05/03/2018 FINDINGS: The heart size appears within normal limits. No pericardial effusion. There are no pulmonary arterial filling defects to suggest pulmonary embolus. Emphysematous changes of both lungs. There is no pulmonary consolidation. No pleural effusion or pn eumothorax. Diffuse bronchial wall thickening. Correlate for bronchitis/bronchiolitis. Moderate sized hiatal he rnia. There has been interval worsening of lymphadenopathy throughout the central abdominal mesentery. Fur ther workup is needed. CT of the abdomen and pelvis with intravenous contrast is recommended for fur ther evaluation. IMPRESSION: 1. No pulmonary embolus. 2. Emphysema. 3. Moderate sized hiatal hernia 4. Diffuse bronchial wall thickening. Correlate for bronchitis/bronchiolitis 5. Worsening of mesenteric lymphadenopathy which is only partially visualized. Neoplastic process n ot excluded. CT abdomen and pelvis with intravenous contrast is recommended for further evaluation.
--- NOTE | 2018-09-03 04:31 | ED.PDOC ---
General ED Provider: Dr. ITA CR-ER Chief Complaint: Shortness of Air Stated Complaint: i woke up on the couch wheezing and sob Time Seen by Physician: 01:05 Mode of Arrival: Ambulance Information Source: Patient Exam Limitations: No limitations Primary Care Provider: HARESH HENLEY Nursing and Triage Documentation Reviewed and Agree: Yes Does patient meet sepsis criteria?: No System Inflammatory Response Syndrome: Not Applicable Sepsis Protocol: For patient's 13 years and over: Temp is 96.8 and below OR 101 and greater Pulse >90 BPM Resp >20/minute Acutely Altered Mental Status Are patient's symptoms suggestive of a new infection, such as: -Pneumonia -Skin, Soft Tissue -Endocarditis -UTI -Bone, Joint Infection -Implantable Device -Acute Abdominal Infection -Wound Infection -Meningitis -Blood Stream Catheter Infection -Unknown Respiratory Complaint Exam - Respiratory Complaint/Exam Onset/Duration: one hour Symptoms Are: Still present Timing: Constant Initial Severity: Mild Current Severity: Mild Location: Chest Character: Reports: Non-productive cough Aggravating: Reports: URI Alleviating: Reports: Bronchodilators Associated Signs and Symptoms: Reports: Dyspnea, URI Home Oxygen Use: Yes Recent Stress Test: No Recent Echo/LV Function: No Current Antibiotic Use: No Current Asthma Medication Use: No Respiratory Distress: None Inadequate Respiratory Effort: No Dysphagia Present: No Accessory Muscle Use: No Retractions: Not Present Diminished Breath Sounds: No Sinus Tenderness: None Grunting Respirations: No Kussmaul Respirations: No Differential Diagnoses: COPD Exacerbation, Bronchitis Non-Traumatic Chest Pain Syncope: EKG Performed Review of Systems - Review Of Systems Constitutional: Reports: No symptoms Eyes: Reports: No symptoms Ears, Nose, Mouth, Throat: Reports: No symptoms Respiratory: Reports: Cough, Short of air, Wheezing Cardiac: Reports: No symptoms GI: Reports: No symptoms : Reports: No symptoms Musculoskeletal: Reports: No symptoms Skin: Reports: No symptoms Neurological: Reports: No symptoms Endocrine: Reports: No symptoms Hematologic/Lymphatic: Reports: No symptoms All Other Systems: Reviewed and Negative Past Medical History - Past Medical History Previously Healthy: No Endocrine: Reports: None Cardiovascular: Reports: None Respiratory: Reports: COPD Hematological: Reports: Anemia Gastrointestinal: Reports: None Genitourinary: Reports: None Neuro/Psych: Reports: None Musculoskeletal: Reports: Arthritis, Joint Pain, Other (osteoporsis ). Denies: None Cancer: Reports: None Last Menstrual Period: menopausal/hyst 1981 - Surgical History General Surgical History: Reports: Hysterectomy - Family History Family History: Reports: Unknown - Social History Smoking Status: Current some day smoker, Light tobacco smoker Hx Substance Use: No Alcohol Screening: None - Immunizations Tetanus Shot up to Date: Yes Physical Exam - Physical Exam Appearance: Well-appearing, No pain distress, Well-nourished Eyes: BRADLEY, EOMI, Conjunctiva clear ENT: Ears normal Neck: Supple Respiratory: Wheezes Cardiovascular: RRR, Pulses normal, No rub, No murmur GI/: Soft, Nontender, No masses, Bowel sounds normal, No Organomegaly Musculoskeletal: Normal strength, ROM intact, No edema, No calf tenderness Skin: Warm, Dry, Normal color Neurological: Sensation intact, Motor intact, Reflexes intact, Cranial nerves intact, Alert, Oriented Psychiatric: Affect appropriate, Mood appropriate Interpretation - Radiology Interpretation Radiology Interpretation By: Radiologist Radiology Results: Negative Exam Interpreted: CT Scan - EKG Interpretation Time of EKG #1: 04:31 Rate: Normal Rhythm: Sinus Ectopy: None [place]: NL ST Segment: Normal Interpretation: sinus rythym Critical Care Note - Critical Care Note Total Time (mins): 0 Course - Course Hematology/Chemistry: 09/03/18 01:50 09/03/18 01:50 Orders, Labs, Meds: Lab Review 09/03/18 09/03/18 09/03/18 01:15 01:50 01:50 WBC 8.05 RBC 3.86 L Hgb 11.8 L Hct 38.9 MCV 100.8 H MCH 30.6 MCHC 30.3 L RDW Coeff of Lynette 13.2 Plt Count 280 Immature Gran % (Auto) 0.6 Neut % (Auto) 62.9 Lymph % (Auto) 23.1 [place] % (Auto) 8.7 Eos % (Auto) 3.7 Baso % (Auto) 1.0 Immature Gran # (Auto) 0.1 Neut # (Auto) 5.1 Lymph # (Auto) 1.9 [place] # (Auto) 0.7 Eos # (Auto) 0.3 Baso # (Auto) 0.1 D-Dimer (Manual) Puncture Site Lbrach O2 Saturation 97.0 ABG pH 7.401 ABG pCO2 64.1 H ABG pO2 94.0 ABG HCO3 39.9 H ABG Total CO2 42 H ABG Base Excess 15 H Bernabe Test + O2 Delivery Device Nc Oxygen Liter Flow 4.00 FiO2 % 36.0 Sodium 137.7 Potassium 4.32 Chloride 89.7 L Carbon Dioxide 41.2 H* Anion Gap 11.12 BUN 6.6 L Creatinine 0.48 L Estimated GFR (MDRD) 127.00 BUN/Creatinine Ratio 13.75 Glucose 101.0 Calcium 9.22 Total Bilirubin 0.37 AST 23.8 ALT 10.4 Alkaline Phosphatase 73.8 Total Creatine Kinase 54.9 Troponin I < 0.012 NT-Pro-B Natriuret Pep 677.000 H Total Protein 6.61 Albumin 4.04 Globulin 2.57 Albumin/Globulin Ratio 1.57 09/03/18 01:50 WBC RBC Hgb Hct MCV MCH MCHC RDW Coeff of Lynette Plt Count Immature Gran % (Auto) Neut % (Auto) Lymph % (Auto) [place] % (Auto) Eos % (Auto) Baso % (Auto) Immature Gran # (Auto) Neut # (Auto) Lymph # (Auto) [place] # (Auto) Eos # (Auto) Baso # (Auto) D-Dimer (Manual) 2124.48 Puncture Site O2 Saturation ABG pH ABG pCO2 ABG pO2 ABG HCO3 ABG Total CO2 ABG Base Excess Bernabe Test O2 Delivery Device Oxygen Liter Flow FiO2 % Sodium Potassium Chloride Carbon Dioxide Anion Gap BUN Creatinine Estimated GFR (MDRD) BUN/Creatinine Ratio Glucose Calcium Total Bilirubin AST ALT Alkaline Phosphatase Total Creatine Kinase Troponin I NT-Pro-B Natriuret Pep Total Protein Albumin Globulin Albumin/Globulin Ratio Orders Category Date Time Status ABG DRAW REQUEST Stat CARDIO 09/03/18 01:16 Completed EKG-(ED ONLY) Stat CARDIO 09/03/18 01:16 Completed NEBULIZER TREATMENT Stat CARDIO 09/03/18 01:17 Completed NPO REMINDER: IMAGING ONCE CARE 09/03/18 03:07 Completed ED REFRIGERATOR ROOM CLERK APPLIED .ONCE EMERGENCY 09/03/18 01:16 Active ED IV/MEDIPORT/POWERPORT .ONCE EMERGENCY 09/03/18 01:16 Active ABG Stat LAB 09/03/18 01:15 Completed CBC W/ AUTO DIFF Stat LAB 09/03/18 01:50 Completed COMPREHENSIVE METABOLIC PANEL Stat LAB 09/03/18 01:50 Completed CREATINE KINASE Stat LAB 09/03/18 01:50 Completed D-DIMER Stat LAB 09/03/18 01:50 Completed NT-PROBNP Stat LAB 09/03/18 01:50 Completed TROPONIN I Stat LAB 09/03/18 01:50 Completed 0.9 % Sodium Chloride [Saline Flush] MEDS 09/03/18 01:15 Ordered 1 syr IVF PRN PRN Ipratropium/Albuterol Neb [Duoneb] MEDS 09/03/18 01:17 Discontinued 1 vial NEB ONCE STA Levalbuterol HCl [Xopenex 1.25 mg] MEDS 09/03/18 01:17 Discontinued 1 vial NEB ONCE STA Methylprednisolone Sod Succ/Pf [Solu-Medrol 125 mg] MEDS 09/03/18 01:18 Discontinued 80 [address] IVP ONCE STA CT CHEST PE PROTOCOL Stat RADS 09/03/18 03:06 Completed CXR [CHEST, 1V AP ONLY] Stat RADS 09/03/18 01:17 Completed Medications Generic Name Dose Route Start Last Admin Trade Name Freq PRN Reason Stop Dose Admin Sodium Chloride 1 syr 09/03/18 01:15 Saline Flush IVF PRN PRN To flush IV Discontinued Medications Generic Name Dose Route Start Last Admin Trade Name Freq PRN Reason Stop Dose Admin Albuterol/Ipratropium 1 vial 09/03/18 01:17 09/03/18 02:10 Duoneb NEB 09/03/18 01:18 1 vial ONCE STA Administration Levalbuterol HCl 1 vial 09/03/18 01:17 09/03/18 02:00 Xopenex 1.25 Mg NEB 09/03/18 01:18 1 vial ONCE STA Administration Methylprednisolone Sodium Succinate 80 mg 09/03/18 01:18 09/03/18 02:55 Solu-Medrol 125 Mg IVP 09/03/18 01:19 80 mg ONCE STA Administration Vital Signs: Temp Pulse Resp BP Pulse Ox 09/03/18 01:03 97.1 F L 64 22 145/92 H 97 Departure - Departure Time of Disposition: 04:31 Disposition: DISCH/TSF TO REHAB Discharge Problem: COPD exacerbation, Lymphadenopathy Instructions: COPD (Chronic Obstructive Pulmonary Disease) (ED) Condition: Good Pt referred to PMD for follow-up: Yes IPMP verified?: No Additional Instructions: f/u with dr henley about the lymph nodes since on ct scan Allergies/Adverse Reactions: Allergies tizanidine HCl [From Bertflex] Allergy (Severe, Verified 09/03/18 01:18) hallucinates Patient will notify drugstore. PM already has been notified valacyclovir HCl [From Valtrex] Adverse Reaction (Severe, Verified 09/03/18 01: 18) Itching Altered mental status, dizziness, confusion Penicillins Adverse Reaction (Verified 09/03/18 01:18) Rash Home Medications: Ambulatory Orders Melatonin/Pyridoxine HCl (B6) [Melatonin Tr 10 mg Tablet] 10 mg PO BEDTIME 07/20 Albuterol Sulfate 0.083% Neb [Albuterol 0.083% Neb] 1 vial NEB RTQID vial.neb 05/14/18 Magnesium Oxide [Mag-Ox] 400 mg PO DAILY 90 Days #90 tablet 05/14/18 Disposition Discussed With: Patient, Family
== END 2018-09-03 04:42 ==
LOC: ED 01:03
DX: J44.1 Chronic obstructive pulmonary disease with (acute) exacerbation (principal); R59.1 Generalized enlarged lymph nodes; R06.02 Shortness of breath; F17.210 Nicotine dependence, cigarettes, uncomplicated
CPT/HCPCS: 36415; 80053; 82550; 82803; 83880; 84484; 85025; 85379; 93005; 93010; 94640; 96374; 99284

== ENCOUNTER 2018-09-07 19:42 | Emergency (ER) ==
[2018-09-07 19:53] VITALS: BMI 19.2
[2018-09-07] MEDS ORDERED: ZOFRAN 4 MG/2 ML IVP STA (19:56)
[2018-09-07] MEDS ORDERED: MORPHINE 4 MG/ML SYRINGE IVP STA (19:56)
[2018-09-07] MEDS ORDERED: LACTATED RINGERS 1,000 ML IV STA (19:56)
[2018-09-07] MEDS ORDERED: PROTONIX IV IVP STA (19:56)
--- NOTE | 2018-09-07 20:37 | ED.PDOC ---
General ED Provider: Dr. ROBSON SHANNON Chief Complaint: Abdominal Pain Stated Complaint: Patient is 72 year old female who comes to the ER with complains of diffuse abdominal pain worse on the lower quadrants. She had a CT scan of chest recently( 09/03) that was suggestive of abdominal pathology. She has been been having Nausea and vomited twice. Time Seen by Physician: 20:34 Mode of Arrival: Wheelchair Information Source: Patient Exam Limitations: No limitations Primary Care Provider: HARESH MAI Nursing and Triage Documentation Reviewed and Agree: Yes Does patient meet sepsis criteria?: No System Inflammatory Response Syndrome: Not Applicable Sepsis Protocol: For patient's 13 years and over: Temp is 96.8 and below OR 101 and greater Pulse >90 BPM Resp >20/minute Acutely Altered Mental Status Are patient's symptoms suggestive of a new infection, such as: -Pneumonia -Skin, Soft Tissue -Endocarditis -UTI -Bone, Joint Infection -Implantable Device -Acute Abdominal Infection -Wound Infection -Meningitis -Blood Stream Catheter Infection -Unknown Review of Systems - Review Of Systems Constitutional: Reports: No symptoms Eyes: Reports: No symptoms Ears, Nose, Mouth, Throat: Reports: No symptoms Respiratory: Reports: Cough, Short of air (chronic ) Cardiac: Reports: No symptoms GI: Reports: Abdominal pain, Nausea, Poor appetite, Vomiting : Reports: No symptoms Musculoskeletal: Reports: No symptoms Skin: Reports: No symptoms Neurological: Reports: No symptoms Endocrine: Reports: No symptoms Hematologic/Lymphatic: Reports: No symptoms All Other Systems: Reviewed and Negative Past Medical History - Past Medical History Previously Healthy: No Endocrine: Reports: None Cardiovascular: Reports: None Respiratory: Reports: COPD Hematological: Reports: Anemia Gastrointestinal: Reports: None Genitourinary: Reports: None Neuro/Psych: Reports: None Musculoskeletal: Reports: Arthritis, Joint Pain, Other (osteoporsis ). Denies: None Cancer: Reports: None Last Menstrual Period: hyst in 1981 - Surgical History General Surgical History: Reports: Hysterectomy - Family History Family History: Reports: Unknown - Social History Smoking Status: Current some day smoker, Light tobacco smoker Hx Substance Use: No Alcohol Screening: None - Immunizations Tetanus Shot up to Date: Yes Physical Exam - Physical Exam Appearance: Ill-appearing, Thin Pain Distress: Severe Eyes: BRADLEY Neck: Supple Respiratory: Airway patent, Breath sounds clear, Breath sounds equal, Respirations nonlabored Cardiovascular: RRR GI/: Soft, Tender (lower quadrant) Musculoskeletal: Normal strength, ROM intact, No edema, No calf tenderness Skin: Warm, Dry, Normal color Neurological: Alert, Oriented Psychiatric: Anxious Critical Care Note - Critical Care Note Total Time (mins): 35 Course - Course Hematology/Chemistry: 09/07/18 20:10 09/07/18 20:10 Orders, Labs, Meds: Lab Review 09/07/18 09/07/18 20:10 20:10 WBC 19.09 H RBC 3.75 L Hgb 11.7 L Hct 36.3 L MCV 96.8 MCH 31.2 H MCHC 32.2 RDW Coeff of Lynette 13.3 Plt Count 291 Immature Gran % (Auto) 0.4 Neut % (Auto) 84.2 Lymph % (Auto) 7.9 L Johnson % (Auto) 6.9 Eos % (Auto) 0.5 Baso % (Auto) 0.1 Immature Gran # (Auto) 0.1 Neut # (Auto) 16.1 H Lymph # (Auto) 1.5 Johnson # (Auto) 1.3 Eos # (Auto) 0.1 Baso # (Auto) 0.0 Sodium 132.2 L Potassium 4.82 Chloride 89.0 L Carbon Dioxide 37.6 H Anion Gap 10.42 BUN 14.9 Creatinine 0.57 L Estimated GFR (MDRD) 105.00 BUN/Creatinine Ratio 26.14 Glucose 125.9 H Calcium 9.44 Total Bilirubin 0.53 AST 22.1 ALT 12.7 Alkaline Phosphatase 72.2 Total Protein 6.58 Albumin 3.96 Globulin 2.62 Albumin/Globulin Ratio 1.51 Amylase 122.2 H Lipase 254.3 Orders Category Date Time Status NPO REMINDER: IMAGING ONCE CARE 09/07/18 19:58 Completed ED IV/MEDIPORT/POWERPORT .ONCE EMERGENCY 09/07/18 19:56 Active AMYLASE Stat LAB 09/07/18 20:10 Completed CBC W/ AUTO DIFF Stat LAB 09/07/18 20:10 Completed COMPREHENSIVE METABOLIC PANEL Stat LAB 09/07/18 20:10 Completed LIPASE Stat LAB 09/07/18 20:10 Completed URINALYSIS C & S IF INDICATED Stat LAB 09/07/18 19:56 Uncollected 0.9 % Sodium Chloride [Saline Flush] MEDS 09/07/18 19:56 Ordered 1 syr IVF PRN PRN Hydromorphone HCl [Dilaudid 1 mg/ml Syringe] MEDS 09/07/18 20:51 Discontinued 1 mg IVP ONCE STA Morphine Sulfate [Morphine 4 mg/ml Syringe] MEDS 09/07/18 19:56 Discontinued 4 mg IVP ONCE STA Ondansetron HCl/Pf [Zofran 4 mg/2 ml] MEDS 09/07/18 19:56 Discontinued 4 mg IVP ONCE STA Pantoprazole Sodium [Protonix IV] MEDS 09/07/18 19:56 Discontinued 40 mg IVP ONCE STA Ringers Lactated Solution [Lactated Ringers] 1,000 ml MEDS 09/07/18 19:[address] ABDOMEN/PELVIS W/WO CONTRAS Stat RADS 09/07/18 19:56 Completed Medications Generic Name Dose Route Start Last Admin Trade Name Freq PRN Reason Stop Dose Admin Sodium Chloride 1 syr 09/07/18 19:56 09/07/18 20:33 Saline Flush IVF 1 syr PRN PRN Administration To flush IV Discontinued Medications Generic Name Dose Route Start Last Admin Trade Name Freq PRN Reason Stop Dose Admin Hydromorphone HCl 1 mg 09/07/18 20:51 09/07/18 20:54 Dilaudid 1 Mg/Ml Syringe IVP 09/07/18 20:52 1 mg ONCE STA Administration Lactated Ringer's 1,000 mls @ 1,000 mls/hr 09/07/18 19:56 09/07/18 20:34 Lactated Ringers IV 09/07/18 20:55 1,000 mls/hr BOLUS STA Administration Morphine Sulfate 4 mg 09/07/18 19:56 09/07/18 20:33 Morphine 4 Mg/Ml Syringe IVP 09/07/18 19:57 4 mg ONCE STA Administration Ondansetron HCl 4 mg 09/07/18 19:56 09/07/18 20:33 Zofran 4 Mg/2 Ml IVP 09/07/18 19:57 4 mg ONCE STA Administration Pantoprazole Sodium 40 mg 09/07/18 19:56 09/07/18 20:33 Protonix Iv IVP 09/07/18 19:57 40 mg ONCE STA Administration Vital Signs: Temp Pulse Resp BP Pulse Ox 09/07/18 19:44 98.9 F 71 22 133/74 95 Departure - Departure Time of Disposition: 21:42 Disposition: HOME SELF-CARE Discharge Problem: Abdominal pain Instructions: Acute Abdominal Pain (ED) Condition: Fair Pt referred to PMD for follow-up: Yes IPMP verified?: No Additional Instructions: Take Medications as prescribed Follow up with PCP for Oncologist referrals Prescriptions: Ondansetron [Zofran Odt] 4 mg PO Q8H #20 tab.rapdis Oxycodone-Acetaminophe 7.5-325 [Percocet 7.5-325] 1 tab PO Q6H #28 tablet Sennosides [Senna Lax] 8.6 mg PO DAILY LAB #30 tablet Allergies/Adverse Reactions: Allergies tizanidine HCl [From Zanaflex] Allergy (Severe, Verified 09/07/18 19:53) hallucinates Patient will notify drugstore. PM already has been notified valacyclovir HCl [From Valtrex] Adverse Reaction (Severe, Verified 09/07/18 19: 53) Itching Altered mental status, dizziness, confusion Penicillins Adverse Reaction (Verified 09/07/18 19:53) Rash Home Medications: Ambulatory Orders Melatonin/Pyridoxine HCl (B6) [Melatonin Tr 10 mg Tablet] 10 mg PO BEDTIME 07/20 Albuterol Sulfate 0.083% Neb [Albuterol 0.083% Neb] 1 vial NEB RTQID vial.neb 05/14/18 Magnesium Oxide [Mag-Ox] 400 mg PO DAILY 90 Days #90 tablet 05/14/18 Azithromycin [Zithromax] 250 mg PO DIRECTED #6 tablet 09/03/18 Methylprednisolone [Medrol Dosepak] 4 mg PO DIRECTED #1 pkg 09/03/18 Ondansetron [Zofran Odt] 4 mg PO Q8H #20 tab.rapdis 09/07/18 Oxycodone-Acetaminophe 7.5-325 [Percocet 7.5-325] 1 tab PO Q6H #28 tablet Sennosides [Senna Lax] 8.6 mg PO DAILY LAB #30 tablet 09/07/18 Disposition Discussed With: Patient, Family
[2018-09-07] MEDS ORDERED: DILAUDID 1 MG/ML SYRINGE IVP STA (20:51)
--- NOTE | 2018-09-07 21:36 | CT ---
Exam: CT of the abdomen and pelvis pre and post contrast History: Diffuse abdomen pain Technique: [address] of the abdomen pelvis pre and post intravenous contrast FINDINGS: Emphysematous change of the lung bases. Small hiatus hernia without complication. Prior cholecystectomy. Multiple cysts anterior to the pancreas with no inflammatory changes are present. Kidneys and proximal collecting system are unremarkable. Atherosclerotic calcification of the aorta without aneurysm. The appendix is not seen. U fluid. Small intestine loops without obstructive tra nsition or distension gradient. Prior hysterectomy. Normal urinary bladder. No pelvic fat inflammation. No acute findings of the s [place]. Prior cement fixation of L2. Impression: 1. Multiple thin walled cysts or connected cysts anterior to the pancreas. The findings favor multi ple pseudocysts. There is no inflammation to suggest acute pancreatitis. Correlate for prior pancre atitis. 2. There are a few distended small intestine loops without overt obstructive pattern
[2018-09-07 21:43] VITALS: BP 124/74; TEMP 98.7
== END 2018-09-07 22:00 | disposition home or self-care (01) ==
LOC: ED 19:42
DX: R10.84 Generalized abdominal pain (principal); R06.02 Shortness of breath; R11.2 Nausea with vomiting, unspecified; R05 Cough; D64.9 Anemia, unspecified; J44.9 Chronic obstructive pulmonary disease, unspecified; Z79.899 Other long term (current) drug therapy; F17.210 Nicotine dependence, cigarettes, uncomplicated
CPT/HCPCS: 36415; 80053; 81001; 82150; 83690; 85025; 87086; 96361; 96375; 99283

== ENCOUNTER 2018-11-20 08:58 | Inpatient (IN) ==
[2018-11-20] MEDS ORDERED: DUONEB NEB STA (09:39)
[2018-11-20] MEDS ORDERED: SOLU-MEDROL 40 MG IVP STA (10:10)
--- NOTE | 2018-11-20 10:38 | DI ---
EXAM: Frontal chest HISTORY: Shortness of breath FINDINGS: Compared to 09/03/2018. Stable cardiomegaly. There is at least mild atherosclerotic dise ase. Hiatal hernia is noted. There is diffuse, chronic appearing interstitial accentuation. No acu te infiltrates are seen. No vascular congestion. There is no consolidation, visible pleural fluid o r pneumothorax. Bones reveal no acute fracture. IMPRESSION: Cardiomegaly. Atherosclerosis. Hiatal hernia. No acute cardiopulmonary process.
--- NOTE | 2018-11-20 10:56 | ED.PDOC ---
General ED Provider: Dr. LUCAS PAULA Chief Complaint: Shortness of Air Stated Complaint: short of air Time Seen by Physician: 09:00 (seen with nurses at all times ) Mode of Arrival: Ambulance Information Source: Patient, Family Exam Limitations: No limitations Primary Care Provider: HARESH MAI Referred to ED by: Other (FAMILY STATED THAT PT IS D.N.R.) Nursing and Triage Documentation Reviewed and Agree: Yes Does patient meet sepsis criteria?: Yes If yes, has appropriate treatment been initiated?: No System Inflammatory Response Syndrome: Not Applicable Sepsis Protocol: For patient's 13 years and over: Temp is 96.8 and below OR 101 and greater Pulse >90 BPM Resp >20/minute Acutely Altered Mental Status Are patient's symptoms suggestive of a new infection, such as: -Pneumonia -Skin, Soft Tissue -Endocarditis -UTI -Bone, Joint Infection -Implantable Device -Acute Abdominal Infection -Wound Infection -Meningitis -Blood Stream Catheter Infection -Unknown Respiratory Complaint Exam - Respiratory Complaint/Exam Onset/Duration: 1 week Symptoms Are: Still present Timing: Intermittent Initial Severity: Moderate Current Severity: Mild Location: Nose, Throat, Chest Character: Reports: Non-productive cough Aggravating: Reports: URI Alleviating: Reports: Bronchodilators, Spontaneous resolution Associated Signs and Symptoms: Denies: Rapid breathing, Dyspnea, Fever, Chills, Chest pain, Pleuritic chest pain, Wheezing, Hemoptysis, Dizziness, Calf pain, Calf swelling, Edema, URI, Nasal congestion, Hoarseness, Sinus discomfort, Vomiting, Sore throat, Weight loss, Decreased oral intake, Increased thirst, Increased appetite, Increased urination Related History: Reports: Similar episode History of Healthcare-Acquired Pneumonia: No Related Surgical History: Reports: None Pulmonary Embolism Risk Factors: None Cardiac Risk Factors: Reports: Hypertension Pseudomonas Risk Factors: Reports: Chronic Lung Disease (on home o2 at all times ) Tuberculosis Risk Factors: Reports: Chronic Resp. Faliure Home Oxygen Use: Yes Recent Stress Test: No Recent Echo/LV Function: No Current Antibiotic Use: No Current Asthma Medication Use: No Respiratory Distress: Mild Inadequate Respiratory Effort: Yes Dysphagia Present: No Stridor Present: No JVD Present: No Accessory Muscle Use: No Retractions: Intercostal, Inadequate effort Diminished Breath Sounds: Yes Prolonged Respiration: Expiratory phase Sinus Tenderness: None Grunting Respirations: No Kussmaul Respirations: No Differential Diagnoses: COPD Exacerbation, Pneumonia, Bronchitis Quality Indicators For Pneumonia: SpO2 assessed, Vital signs, Mental status assessed Non-Traumatic Chest Pain Syncope: EKG Performed Review of Systems - Review Of Systems Constitutional: Reports: Malaise, Loss of appetite Eyes: Reports: No symptoms Ears, Nose, Mouth, Throat: Reports: No symptoms Respiratory: Reports: Cough, Short of air, Wheezing Cardiac: Reports: No symptoms GI: Reports: No symptoms : Reports: No symptoms Musculoskeletal: Reports: No symptoms Skin: Reports: No symptoms Neurological: Reports: No symptoms Endocrine: Reports: No symptoms Hematologic/Lymphatic: Reports: No symptoms All Other Systems: Reviewed and Negative Past Medical History - Past Medical History Previously Healthy: No Endocrine: Reports: None Cardiovascular: Reports: None Respiratory: Reports: COPD Hematological: Reports: Anemia Gastrointestinal: Reports: None Genitourinary: Reports: None Neuro/Psych: Reports: None Musculoskeletal: Reports: Arthritis, Joint Pain, Other (osteoporsis ). Denies: None Cancer: Reports: None Last Menstrual Period: n/a - Surgical History General Surgical History: Reports: Hysterectomy - Family History Family History: Reports: Unknown - Social History Smoking Status: Current some day smoker, Light tobacco smoker Hx Substance Use: No Alcohol Screening: None - Immunizations Tetanus Shot up to Date: No Physical Exam - Physical Exam Appearance: Ill-appearing Ill-appearing: Moderate Pain Distress: Mild Eyes: BRADLEY, EOMI, Conjunctiva clear ENT: Ears normal, Nose normal, Oropharynx normal Respiratory: Breath sounds diminished, Rhonchi, Wheezes Cardiovascular: RRR, Pulses normal, No rub, No murmur GI/: Soft, Nontender, No masses, Bowel sounds normal, No Organomegaly Musculoskeletal: Normal strength, ROM intact, No edema, No calf tenderness Skin: Warm, Dry, Normal color Neurological: Sensation intact, Motor intact, Reflexes intact, Cranial nerves intact, Alert, Oriented Psychiatric: Affect appropriate, Mood appropriate Interpretation - Radiology Interpretation Radiology Interpretation By: Radiologist Radiology Results: No acute changes - Puncher Time of Puncher Interpretation: 10:00 Rate: Normal Rhythm: Sinus Ectopy: None - EKG Interpretation Time of EKG #1: 10:00 Rate: Normal Rhythm: Sinus Ectopy: PACs [place]: NL ST Segment: Other (1mm st depression V 4,5,6.PROLNGED QT INTERVAL. BIPHASIC P WAVE V1 COSISTENT WITH LEFT ATRIAL ABNORMALITY. Q.T.U. PATTERN CONSISTENT WITH LONG QT INTERVAL DUE TO HYPOKALEMIA) Re-Evaluation - Re-Evaluation Time of Re-Evaluation: 10:00 Status: Improved Vital Signs Stable: Yes Pain Level: 0 Appearance: NAD Lungs: Clear Skin: Warm and Dry Neuro: Alert and Oriented X3 CV: RRR - Re-Evaluation Time of Re-Evaluation: 10:57 Status: Improved Vital Signs Stable: Yes Pain Level: 0 Appearance: NAD Skin: Warm and Dry Neuro: Alert and Oriented X3 CV: RRR Physician Notification - Case Discussed Physician Notified: DILSHAD COVERING FOR PMD Time of Notification: 11:00 Admit To: Inpatient Critical Care Note - Critical Care Note Total Time (mins): 0 Course - Course Hematology/Chemistry: 11/20/18 09:50 11/20/18 09:50 Orders, Labs, Meds: Lab Review 11/20/18 11/20/18 11/20/18 09:39 09:47 09:50 WBC 8.69 RBC 3.27 L Hgb 10.1 L Hct 32.1 L MCV 98.2 MCH 30.9 MCHC 31.5 L RDW Coeff of Lynette 12.0 Plt Count 266 Immature Gran % (Auto) 0.2 Neut % (Auto) 80.8 Lymph % (Auto) 10.9 [place] % (Auto) 7.4 Eos % (Auto) 0.2 Baso % (Auto) 0.5 Immature Gran # (Auto) 0.0 Neut # (Auto) 7.0 H Lymph # (Auto) 1.0 [place] # (Auto) 0.6 Eos # (Auto) 0.0 Baso # (Auto) 0.0 PT INR APTT Puncture Site Rbrach O2 Saturation 99.0 ABG pH 7.441 ABG pCO2 77.3 H ABG pO2 134.0 H ABG HCO3 52.6 H ABG Total CO2 50 H ABG Base Excess 29 H O2 Delivery Device Nc Oxygen Liter Flow 4.00 Sodium Potassium Chloride Carbon Dioxide Anion Gap BUN Creatinine Estimated GFR (MDRD) BUN/Creatinine Ratio Glucose Lactic Acid Calcium Total Bilirubin AST ALT Alkaline Phosphatase Total Creatine Kinase Troponin I Total Protein Albumin Globulin Albumin/Globulin Ratio Procalcitonin Influ A Molecular Assay Negative by naat Influ B Molecular Assay Negative by naat 11/20/18 11/20/18 11/20/18 09:50 09:50 09:50 WBC RBC Hgb Hct MCV MCH MCHC RDW Coeff of Lynette Plt Count Immature Gran % (Auto) Neut % (Auto) Lymph % (Auto) [place] % (Auto) Eos % (Auto) Baso % (Auto) Immature Gran # (Auto) Neut # (Auto) Lymph # (Auto) [place] # (Auto) Eos # (Auto) Baso # (Auto) PT 10.9 INR 1.12 APTT 25.2 Puncture Site O2 Saturation ABG pH ABG pCO2 ABG pO2 ABG HCO3 ABG Total CO2 ABG Base Excess O2 Delivery Device Oxygen Liter Flow Sodium 131.3 L Potassium 2.98 L Chloride 78.9 L Carbon Dioxide 51.0 H* Anion Gap 4.38 BUN 12.4 Creatinine 0.53 L Estimated GFR (MDRD) 113.00 BUN/Creatinine Ratio 23.39 Glucose 117.2 H Lactic Acid Calcium 8.88 Total Bilirubin 0.38 AST 29.4 ALT 9.2 Alkaline Phosphatase 64.9 Total Creatine Kinase 57.9 Troponin I 0.060 Total Protein 6.15 L Albumin 3.59 Globulin 2.56 Albumin/Globulin Ratio 1.40 Procalcitonin < 0.05 Influ A Molecular Assay Influ B Molecular Assay 11/20/18 09:50 WBC RBC Hgb Hct MCV MCH MCHC RDW Coeff of Lynette Plt Count Immature Gran % (Auto) Neut % (Auto) Lymph % (Auto) [place] % (Auto) Eos % (Auto) Baso % (Auto) Immature Gran # (Auto) Neut # (Auto) Lymph # (Auto) [place] # (Auto) Eos # (Auto) Baso # (Auto) PT INR APTT Puncture Site O2 Saturation ABG pH ABG pCO2 ABG pO2 ABG HCO3 ABG Total CO2 ABG Base Excess O2 Delivery Device Oxygen Liter Flow Sodium Potassium Chloride Carbon Dioxide Anion Gap BUN Creatinine Estimated GFR (MDRD) BUN/Creatinine Ratio Glucose Lactic Acid 0.68 L Calcium Total Bilirubin AST ALT Alkaline Phosphatase Total Creatine Kinase Troponin I Total Protein Albumin Globulin Albumin/Globulin Ratio Procalcitonin Influ A Molecular Assay Influ B Molecular Assay Orders Category Date Time Status ABG DRAW REQUEST Stat CARDIO 11/20/18 09:39 Completed EKG-(ED ONLY) Stat CARDIO 11/20/18 09:38 Completed NEBULIZER TREATMENT Stat CARDIO 11/20/18 09:39 Completed ED IV/MEDIPORT/POWERPORT .ONCE EMERGENCY 09/18/19 09:38 Active ABG Stat LAB 11/20/18 09:39 Completed BLOOD CULTURE (ED ONLY) Stat LAB 11/20/18 09:50 Received BLOOD CULTURE Stat LAB 11/20/18 09:39 Received CBC W/ AUTO DIFF Stat LAB 11/20/18 09:50 Completed COMPREHENSIVE METABOLIC PANEL Stat LAB 11/20/18 09:50 Completed CREATINE KINASE Stat LAB 11/20/18 09:50 Completed FLU A/B MOLECULAR Stat LAB 11/20/18 09:47 Completed LACTIC ACID Stat LAB 11/20/18 09:50 Completed PARTIAL THROMBOPLASTIN TIME Stat LAB 11/20/18 09:50 Completed PROCALCITONIN Stat LAB 11/20/18 09:50 Completed PT WITH INR Stat LAB 11/20/18 09:50 Completed TROPONIN I Stat LAB 11/20/18 09:50 Completed 0.9 % Sodium Chloride [Saline Flush] MEDS 11/20/18 09:38 Active 1 syr IVF PRN PRN Ipratropium/Albuterol Neb [Duoneb] MEDS 11/20/18 09:39 Discontinued 1 vial NEB ONCE STA Methylprednisolone Sod Succ/Pf [Solu-Medrol 40 mg] MEDS 11/20/18 10:10 Discontinued 40 mg IVP ONCE STA Potassium Chloride [K-Dur] MEDS 11/20/18 11:05 Stat 40 meq PO ONCE STA Potassium Chloride [Potassium Chloride Premix Run] 10 MEDS 11/20/18 11:05 Ordered meq Premix 100 ml Water 1 bag IV ONCE CHEST, 1V AP ONLY Stat RADS 11/20/18 09:38 Completed Medications Generic Name Dose Route Start Last Admin Trade Name Freq PRN Reason Stop Dose Admin Potassium Chloride 10 meq/ 100 mls @ 100 mls/hr 11/20/18 11:05 Sterile Water IV 11/20/18 12:04 ONCE STA Sodium Chloride 1 syr 11/20/18 09:38 11/20/18 10:17 Saline Flush IVF 1 syr PRN PRN Administration To flush IV Discontinued Medications Generic Name Dose Route Start Last Admin Trade Name Freq PRN Reason Stop Dose Admin Albuterol/Ipratropium 1 vial 11/20/18 09:39 11/20/18 10:00 Duoneb NEB 11/20/18 09:40 1 vial ONCE STA Administration Methylprednisolone Sodium Succinate 40 mg 11/20/18 10:10 11/20/18 10:17 Solu-Medrol 40 Mg IVP 11/20/18 10:11 40 mg ONCE STA Administration Potassium Chloride 40 meq 11/20/18 11:05 K-Dur PO 11/20/18 11:06 ONCE STA Vital Signs: Temp Pulse Resp BP Pulse Ox 11/20/18 10:42 68 23 134/80 96 11/20/18 08:59 98.2 F 77 22 110/96 H 96 Departure - Departure Time of Disposition: 11:11 (DNR CONFIRMED ) Disposition: ADMITTED INPATIENT Discharge Problem: COPD exacerbation, Hypokalemia Chronic obstructive pulmonary disease Qualifiers: Emphysema type: unspecified Anemia Qualifiers: Anemia type: unspecified type Qualified Code(s): D64.9 - Anemia, unspecified Instructions: COPD (Chronic Obstructive Pulmonary Disease) (ED) Condition: Good Pt referred to PMD for follow-up: Yes IPMP verified?: No Allergies/Adverse Reactions: Allergies tizanidine HCl [From Zanaflex] Allergy (Severe, Verified 09/07/18 19:53) hallucinates Patient will notify drugstore. PM already has been notified valacyclovir HCl [From Valtrex] Adverse Reaction (Severe, Verified 09/07/18 19: 53) Itching Altered mental status, dizziness, confusion Penicillins Adverse Reaction (Verified 09/07/18 19:53) Rash Home Medications: Ambulatory Orders Albuterol Sulfate 0.083% Neb [Albuterol 0.083% Neb] 1 vial NEB RTQID vial.neb 05/14/18 Magnesium Oxide [Mag-Ox] 400 mg PO DAILY 90 Days #90 tablet 05/14/18 Oxycodone-Acetaminophe 7.5-325 [Percocet 7.5-325] 1 tab PO Q6H #28 tablet Disposition Discussed With: Patient, Family
[2018-11-20] MEDS ORDERED: POTASSIUM CHLORIDE 10 MEQ/100 ML PREMIX 10 MEQ in PREMIX 100 ML WATER 1 BAG IV STA (11:05)
[2018-11-20] MEDS ORDERED: K-DUR PO STA (11:05)
[2018-11-20] MEDS: POTASSIUM CHLORIDE 10 MEQ/100 ML PREMIX 100 ML IV ONE ×2 (11:30→11:35)
[2018-11-20] MEDS ORDERED: PERCOCET 7.5-325 PO SCH (12:00)
[2018-11-20] MEDS ORDERED: DUONEB NEB SCH (12:00)
[2018-11-20] MEDS: ASPIRIN EC PO SCH (13:06)
[2018-11-20] MEDS: SODIUM CHLORIDE 0.9%-KCL 20 MEQ 1,000 ML IV SCH (13:06)
[2018-11-20] MEDS: COREG PO SCH ×2 (13:06→20:11)
[2018-11-20] MEDS: COZAAR PO SCH (13:07)
[2018-11-20] MEDS: CARAFATE PO SCH ×3 (13:07→20:11)
[2018-11-20] MEDS: NEURONTIN PO SCH ×2 (13:07→20:11)
[2018-11-20] MEDS: REQUIP PO SCH (13:07)
[2018-11-20] MEDS: SOLU-MEDROL 125 MG IVP SCH ×3 (13:08→20:10)
[2018-11-20] MEDS: PRASUGREL HCL 10 MG PO SCH ×2 (13:09→15:05)
[2018-11-20] MEDS: MAG-OX PO SCH (13:14)
[2018-11-20] MEDS: DUONEB NEB SCH ×2 (14:02→20:00)
[2018-11-20] MEDS ORDERED: ASTELIN 0.1% NAS PRN ×2 (14:07→15:22)
[2018-11-20] MEDS: ZITHROMAX PO SCH (15:05)
[2018-11-20] MEDS ORDERED: PROAIR HFA IH PRN (15:24)
[2018-11-20] MEDS: SINGULAIR PO SCH (16:49)
[2018-11-20] MEDS: PROTONIX PO SCH (16:50)
[2018-11-20] MEDS: K-DUR PO SCH (16:50)
[2018-11-20] MEDS ORDERED: PROAIR HFA IH SCH (17:00)
[2018-11-20] MEDS: SYMBICORT 80-4.5 MCG INHALER IH SCH (20:10)
[2018-11-20] MEDS ORDERED: GABAPENTIN PO SCH (21:00)
[2018-11-21] MEDS: SODIUM CHLORIDE 0.9%-KCL 20 MEQ 1,000 ML IV SCH ×2 (03:08→16:37)
[2018-11-21] MEDS: DUONEB NEB SCH ×4 (04:20→19:34)
[2018-11-21] MEDS: PROTONIX PO SCH ×2 (05:42→16:36)
[2018-11-21] MEDS: SOLU-MEDROL 125 MG IVP SCH ×3 (05:42→21:24)
[2018-11-21] MEDS: CARAFATE PO SCH ×4 (05:43→21:26)
[2018-11-21] MEDS ORDERED: NON-FORMULARY MEDICATION (Losartan Potassium [Cozaar] 50 MG) PO SCH (09:00)
[2018-11-21] MEDS: SYMBICORT 80-4.5 MCG INHALER IH SCH ×2 (09:31→21:27)
[2018-11-21] MEDS: SPIRIVA IH SCH (09:32)
[2018-11-21] MEDS: FLONASE NAS SCH (09:33)
[2018-11-21] MEDS: PRASUGREL HCL 10 MG PO SCH (09:34)
[2018-11-21] MEDS: ZITHROMAX PO SCH (09:35)
[2018-11-21] MEDS: K-DUR PO SCH ×3 (09:35→16:36)
[2018-11-21] MEDS: REQUIP PO SCH (09:35)
[2018-11-21] MEDS: NEURONTIN PO SCH ×2 (09:35→21:25)
[2018-11-21] MEDS: COZAAR PO SCH (09:35)
[2018-11-21] MEDS: COREG PO SCH ×2 (09:35→16:36)
[2018-11-21] MEDS: MAG-OX PO SCH (09:36)
[2018-11-21] MEDS: ASPIRIN EC PO SCH (09:36)
--- NOTE | 2018-11-21 14:41 | PN ---
DATE OF SERVICE: 11/20/18 SUBJECTIVE: The patient was hospitalized with worsening of COPD and hypokalemia. The patient was seen by ER attending. Atrial blood gasses showed near pH with pCO2 of 72 with PO2 90 with saturation of more than 99% on 4 liters. The patient's daughter is keeping oxygen at 4liters lately. The patient was not in any distress. She has been short of breath on minimal exertion lately. The patient' s potassium was 2.9. She was given 40meq PO Potassium in the emergency room and she is going to be on 20meq Potassium three times a day. REVIEW OF SYSTEMS: CONSTITUTIONAL: No night sweats. No fatigue, malaise, lethargy. No fever or chills. HEENT: Eyes: No visual changes. No eye pain. No eye discharge. ENT: No runny nose. No epistaxis. No sinus pain. No sore throat. No odynophagia. No congestion. RESPIRATORY: No cough, no congestion. No hemoptysis. No shortness of breath. CARDIOVASCULAR: No angina symptoms. No CHF symptoms. No atypical chest pain for CAD. No palpitations. No PND. No orthopnea. GASTROINTESTINAL: No abdominal pain. No nausea or vomiting. No diarrhea or constipation. No hematemesis. No hematochezia. GENITOURINARY: No urgency. No frequency. No dysuria. No hematuria. No obstructive symptoms. No discharge. No pain. No significant abnormal bleeding. MUSCULOSKELETAL: No musculoskeletal pain; no joint swelling. NEUROLOGICAL: No headache. No neck pain. No syncope. No seizures. No dizziness. PSYCHIATRIC: Not anxious. No depression. No suicidal thoughts. No homicidal thoughts. SKIN: No rash. No lesions. No wounds. ENDOCRINE: No unexplained weight loss. No weight gain. HEMATOLOGIC/LYMPHATIC: No anemia. No purpura. No petechiae. No prolonged or excessive bleeding. No palpable lymph nodes. PHYSICAL EXAMINATION: GENERAL: The patient is no distress. HEENT: Head normocephalic, atraumatic. Eyes: Extraocular muscles are intact. Pupils are equal, round and reactive to light and accommodation. Ears: No lesions. Nose appeared normal. Throat: No exudate or erythema. NECK: Supple. No JVD, no carotid bruit. No lymphadenopathy or thyromegaly. LUNGS: Decreased breath sounds but clear to auscultation. Percussion note normal. Chest symmetrical. No intercostal retraction. HEART: S1, S2, no S3. No murmurs. No cyanosis or clubbing. No ascites. Pulses: Dorsalis pedis and posterior tibial pulses +1 to +2 bilaterally. ABDOMEN: Soft. Nontender. Bowel sounds active. No CVA tenderness. No mass felt. EXTREMITIES: No edema. Full range of motion of all extremities, equal. NEUROLOGIC: No focal deficit. Cranial nerves II through XII are grossly intact. No headache, no double vision or headache. SKIN: Not dry. Intact. Turgor - normal. LYMPHATIC: No palpable lymph nodes/no lymphedema. MUSCULOSKELETAL: Normal joints with no swelling. Muscle tone is normal. LABS: EKG sinus rhythm, NO acute changes. ST-T wave changes noted which could be nonspecific. ASSESSMENT: 1. Chronic respiratory failure with hypercarbia PLAN: 1. Put the patient on high flow oxygen at 30% FiO2 2. Continue steroids 3. Put her on Antibiotics 4. Continue NEBS treatment 5. The patient is advised to be up and about 6. Will monitor Potassium CONDITION: Stable. The patient is DNR. TIME SPENT: More than 30 minutes. Plan and coordination of the patient's care discussed in the presence of nurse. FABRICE
[2018-11-21] MEDS: SINGULAIR PO SCH (16:36)
[2018-11-21] MEDS: PERCOCET 7.5-325 PO PRN (21:25)
[2018-11-22] MEDS: DUONEB NEB SCH ×4 (05:00→20:14)
[2018-11-22] MEDS: SOLU-MEDROL 125 MG IVP SCH ×3 (05:48→21:25)
[2018-11-22] MEDS: CARAFATE PO SCH ×4 (05:48→21:26)
[2018-11-22] MEDS: PERCOCET 7.5-325 PO PRN ×2 (05:48→17:00)
[2018-11-22] MEDS: PROTONIX PO SCH ×2 (05:48→17:00)
[2018-11-22] MEDS: FLONASE NAS SCH (09:29)
[2018-11-22] MEDS: PRASUGREL HCL 10 MG PO SCH (09:29)
[2018-11-22] MEDS: COZAAR PO SCH ×2 (09:29→21:25)
[2018-11-22] MEDS: ZITHROMAX PO SCH (09:29)
[2018-11-22] MEDS: COREG PO SCH ×2 (09:30→17:00)
[2018-11-22] MEDS: NEURONTIN PO SCH ×2 (09:30→21:26)
[2018-11-22] MEDS: MAG-OX PO SCH (09:30)
[2018-11-22] MEDS: ASPIRIN EC PO SCH (09:30)
[2018-11-22] MEDS: REQUIP PO SCH (09:30)
[2018-11-22] MEDS: K-DUR PO SCH (09:31)
[2018-11-22] MEDS: SPIRIVA IH SCH (09:32)
--- NOTE | 2018-11-22 11:31 | PCM.PROG ---
Attending Provider: [facility]ING PROVIDER[facility] patient is seen with Joyce Hill, Nurse Practitioner. DATE OF SERVICE: 11/22/18 SUBJECTIVE: This 73 year old WHITE/ F was hospitalized 11/20/18. The patient is resting comfortably. Tolerating the slow wean on Vapotherm. Potassium is slightly elevated today so we will hold the oral Potassium. She will be discharged to the residential. REVIEW OF SYSTEMS: CONSTITUTIONAL: No night sweats. No fatigue, malaise, lethargy. No fever or chills. HEENT: Eyes: No visual changes. No eye pain. No eye discharge. ENT: No runny nose. No epistaxis. No sinus pain. No odynophagia. No congestion. RESPIRATORY: No cough, no congestion. No hemoptysis. Shortness of breath. CARDIOVASCULAR: No angina symptoms. No CHF symptoms. No atypical chest pain for CAD. No palpitations. No orthopnea.. GASTROINTESTINAL: No abdominal pain. No nausea or vomiting. No diarrhea or constipation. No hematemesis. No hematochezia. GENITOURINARY: No urgency. No frequency. No dysuria. No hematuria. No obstructive symptoms. No discharge. No pain. No significant abnormal bleeding. MUSCULOSKELETAL: No musculoskeletal pain; no joint swelling. NEUROLOGICAL: Awake, alert, oriented to time, place and person. No headache. No neck pain. No syncope. No seizures. No dizziness. PSYCHIATRIC: Not anxious. No depression. No suicidal thoughts. No homicidal thoughts. SKIN: No rash. No lesions. No wounds. ENDOCRINE: No unexplained weight loss. No weight gain. HEMATOLOGIC/LYMPHATIC: No anemia. No purpura. No petechiae. No prolonged or excessive bleeding. No palpable lymph nodes. PHYSICAL EXAMINATION: GENERAL: The patient is awake, alert and oriented, lying in bed in no distress. VITAL SIGNS: Temperature 97.6 F, Pulse 65, Respiratory Rate 19, BP 166/82, Pulse Ox 20% HEENT: Head normocephalic, atraumatic. Eyes: Extraocular muscles are intact. Pupils are equal, round and reactive to light and accommodation. Ears: No lesions. Nose appeared normal. Throat: No exudate or erythema. NECK: Supple. No JVD, no carotid bruit. No lymphadenopathy or thyromegaly. LUNGS: Diminished breath sounds. Clear to auscultation. Percussion note normal. Chest symmetrical. HEART: S1, S2, no S3. No murmurs. No cyanosis or clubbing. No ascites. Pulses: Dorsalis pedis and posterior tibial pulses +1 to +2 both sides. ABDOMEN: Soft. Non-tender. Bowel sounds active. No CVA tenderness. No mass felt. EXTREMITIES: No edema. Full range of motion of all extremities, equal. NEUROLOGIC: No focal deficit. Cranial nerves II through XII are grossly intact. No headache, no double vision or headache. SKIN: Not dry. Intact. Turgor-normal. LYMPHATIC: No palpable lymph nodes/no lymphedema. MUSCULOSKELETAL: Normal joints with no swelling. Muscle tone is normal. LAB REVIEW: 11/22/18 05:06 11/22/18 05:06 11/22/18 05:24: Puncture Site Rb, O2 Saturation 98.0, ABG pH 7.485 H, ABG pCO2 45.2 H, ABG pO2 101.0 H, ABG HCO3 34.1 H, ABG Total CO2 35 H, ABG Base Excess 11 H, Bernabe Test +, O2 Delivery Device Vapo-therm, FiO2 % 28.0 11/22/18 05:06: Sodium 130.7 L, Potassium 5.21 H, Chloride 90.9 L, Carbon Dioxide 39.4 H, Anion Gap 5.61, BUN 16.1, Creatinine 0.62, Estimated GFR (MDRD) 95.00, BUN/Creatinine Ratio 25.96, Glucose 151.7 H, Calcium 9.25, Total Bilirubin 0.24, AST 20.9, ALT 13.5, Alkaline Phosphatase 55.6, Total Protein 6.15 L, Albumin 3.63, Globulin 2.52, Albumin/Globulin Ratio 1.44 11/22/18 05:06: WBC 11.53 H D, RBC 3.09 L, Hgb 9.6 L, Hct 30.6 L, MCV 99.0, MCH 31.1 H, MCHC 31.4 L, RDW Coeff of Lynette 12.7, Plt Count 246, Immature Gran % (Auto ) 0.7, Neut % (Auto) 92.6, Lymph % (Auto) 4.5 L, [place] % (Auto) 2.1, Eos % (Auto ) 0.0, Baso % (Auto) 0.1, Immature Gran # (Auto) 0.1, Neut # (Auto) 10.7 H, Lymph # (Auto) 0.5 L, [place] # (Auto) 0.2 L, Eos # (Auto) 0.0, Baso # (Auto) 0.0 11/21/18 09:45: Puncture Site L rad, O2 Saturation 96.0, ABG pH 7.420, ABG pCO2 55.9 H, ABG pO2 83.0 L, ABG HCO3 36.3 H, ABG Total CO2 38 H, ABG Base Excess 12 H, Bernabe Test +, O2 Delivery Device 35lpm vtherm, FiO2 % 28.0 ASSESSMENT: Please see below. 1. Chronic respiratory failure with hypercarbia PLAN: 1. Discontinue IV fluids 2. Hold oral Potassium 3. Wean as tolerated Plan and coordination of the patient's care discussed in the presence of [employer] and nurse. SCRIBED BY: CHUY FLORES Roguer scribed while in presence of service performed by Dr. Yung/Joyce Hill APRN on 11/22/18 ([id number])
--- NOTE | 2018-11-22 11:43 | HP ---
DATE OF SERVICE: 11/20/18 HISTORY OF PRESENT ILLNESS: 73-year-old female who presented to the emergency room complaining of shortness of breath. She has a long history of severe COPD. Primary PCP is Dr. Bearden. PAST MEDICAL HISTORY: Severe COPD, oxygen dependent, has been on 3-4L at home via nasal cannula History of asthma History of falls Polyarthritis Bilateral cataracts History of right and left arm fractures History of surgical neck fracture Depression Hiatal hernia GERD Dyslipidemia Hypertension Hyperthyroidism Peptic ulcer disease Restless leg syndrome PAST SURGICAL HISTORY: Appendectomy Cholecystectomy Hysterectomy Back surgery Cataracts REVIEW OF SYSTEMS: CONSTITUTIONAL: Positive for fatigue. No night sweats. No malaise, lethargy. No fever or chills. HEENT: Eyes: No visual changes. No eye pain. No eye discharge. ENT: No runny nose. No epistaxis. No sinus pain. No sore throat. No odynophagia. No ear pain. No congestion. RESPIRATORY: Positive for shortness of breath, cough, wheezing. No hemoptysis. CARDIOVASCULAR: No angina symptoms. No CHF symptoms. No atypical chest pain for CAD. No palpitations. No PND. No orthopnea. GASTROINTESTINAL: Positive for loss of appetite. No abdominal pain. No nausea or vomiting. No diarrhea or constipation. No hematemesis. No hematochezia. GENITOURINARY: No urgency. No frequency. No dysuria. No hematuria. No obstructive symptoms. No discharge. No pain. No significant abnormal bleeding. MUSCULOSKELETAL: No musculoskeletal pain. No joint swelling. No arthritis. NEUROLOGICAL: No headache. No neck pain. No syncope. No seizures. No dizziness. PSYCHIATRIC: Not anxious. No depression. No suicidal thoughts. No homicidal thoughts. SKIN: No rash. No lesions. No wounds. ENDOCRINE: No unexplained weight loss. No weight gain. HEMATOLOGIC/LYMPHATIC: No anemia. No purpura. No petechiae. No prolonged or excessive bleeding. No palpable lymph nodes. PERSONAL/FAMILY/SOCIAL HISTORY: Current every day smoker approximately 1/2 pack per day. She has smoked since her 30s. No alcohol or ilicit drug use. She lives at home. Family cares for her regularly. MEDICATIONS: (HOME) Vitamin B12 1,000 mcg once a month ProAir Hfa 8.5 gm IH q.i.d. Gabapentin 600 mg one tab p.o. b.i.d. Azelastine 137 mcg/0.137 two spray NS b.i.d. Albuterol NEB RT q.i.d. Mag-Ox 400 mg p.o. daily Symbicort two puff IH b.i.d. Flonase two spray NS daily Oxycodone-Acetaminophen one tab p.o. q.6h Carafate 1 gm p.o. q.i.d. Spiriva 18 mcg IH daily Singulair 10 mg p.o. daily Effient 10 mg p.o. daily Aspirin 81 mg p.o. daily Coreg 6.25 mg p.o. b.i.d. with meal Ropinirole 1 mg p.o. daily Protonix 40 mg p.o. b.i.d. Cozaar 50 mg p.o. daily ALLERGIES: VALTREX, ZANAFLEX, PENICILLIN PHYSICAL EXAMINATION: VITAL SIGNS: Temperature 98.2, heart rate 77, respirations 22, blood pressure 110/96, oxygen saturation 96% on 4L. HEENT: Head normocephalic, atraumatic. Eyes: Extraocular muscles are intact. Pupils are equal, round and reactive to light and accommodation. Ears: No lesions. Nose appeared normal. Throat: No exudate or erythema. NECK: Supple. No JVD, no carotid bruit. No lymphadenopathy or thyromegaly. LUNGS: Severely diminished breath sounds with expiratory wheezing noted. Percussion note normal. Chest symmetrical. HEART: S1, S2, no S3. No murmurs. No cyanosis or clubbing. No ascites. Pulses: Dorsalis pedis and posterior tibial pulses +1 to +2 bilaterally. ABDOMEN: Soft. Nontender. Bowel sounds active. No CVA tenderness. No mass felt. EXTREMITIES: No edema. Full range of motion of all extremities, equal. NEUROLOGIC: No focal deficit. Cranial nerves II through XII are grossly intact. No headache, no double vision or headache. SKIN: Not dry. Intact. Turgor - normal. LYMPHATIC: No palpable lymph nodes/no lymphedema. MUSCULOSKELETAL: Normal joints with no swelling. Muscle tone is normal. LAB/X-RAY REVIEW: Initial chest x-ray showed no acute process, changes associated with COPD. White count 8.69, hemoglobin 10.1, hematocrit 32.1, platelets 266. Sodium 131, potassium 2.9, c02 51, BUN 12, creatinine 0.53, glucose 117. Initial ABG on 4L of oxygen 02 sat 99, pH 7.4, pc02 77.3, p02 134, bicarb 52.6, total c02 50, base excess of 29. Chloride 78.9, carbon dioxide 51 in blood. AST 29, ALT 9.2, procalcitonin normal. Lactic acid is normal. ASSESSMENT: 1. ACUTE COPD EXACERBATION/SHORTNESS OF BREATH 2. HYPOKALEMIA 3. ANEMIA PLAN: 1. Routine telemetry orders. 2. CBC, CMP daily. 3. Vapotherm. 4. ABGs after two hours. 5. Potassium 40 mEq t.i.d. 6. Regular diet. 7. Continue all home medications. 8. Xopenex nebs q.6hr ARTHUR. 9. Pulmicort nebs scheduled b.i.d. 10. Wean off Vapotherm as tolerated. 11. Solu-Medrol 125 mg IV q.8hr. 12. Will follow closely. TIME SPENT: More than 70 minutes. MTDD
[2018-11-22] MEDS ORDERED: LASIX IVP STA (13:52)
[2018-11-22] MEDS ORDERED: NORVASC PO STA (13:52)
[2018-11-22] MEDS ORDERED: NORVASC PO PRN (16:40)
[2018-11-22] MEDS: XANAX PO PRN (17:00)
[2018-11-22] MEDS: SINGULAIR PO SCH (17:01)
[2018-11-22] MEDS: PULMICORT 0.5 MG/2 ML NEB SCH (20:14)
[2018-11-23] MEDS: SODIUM CHLORIDE 0.9%-KCL 20 MEQ 1,000 ML IV SCH (01:44)
[2018-11-23] MEDS: DUONEB NEB SCH ×4 (04:30→19:23)
[2018-11-23] MEDS: PULMICORT 0.5 MG/2 ML NEB SCH ×2 (04:30→19:23)
[2018-11-23] MEDS: SOLU-MEDROL 125 MG IVP SCH ×3 (04:44→20:10)
[2018-11-23] MEDS: PERCOCET 7.5-325 PO PRN ×2 (04:45→16:18)
[2018-11-23] MEDS: CARAFATE PO SCH ×4 (05:32→20:13)
[2018-11-23] MEDS: PROTONIX PO SCH ×2 (05:32→16:18)
[2018-11-23] MEDS: SPIRIVA IH SCH (09:08)
[2018-11-23] MEDS: FLONASE NAS SCH (09:09)
[2018-11-23] MEDS: ASPIRIN EC PO SCH (09:12)
[2018-11-23] MEDS: PRASUGREL HCL 10 MG PO SCH (09:12)
[2018-11-23] MEDS: NEURONTIN PO SCH ×2 (09:12→20:12)
[2018-11-23] MEDS: COZAAR PO SCH ×2 (09:13→20:13)
[2018-11-23] MEDS: REQUIP PO SCH (09:13)
[2018-11-23] MEDS: MAG-OX PO SCH (09:13)
[2018-11-23] MEDS: COREG PO SCH ×2 (09:13→16:35)
[2018-11-23] MEDS: VASOTEC IV IVP PRN (09:14)
[2018-11-23] MEDS: SINGULAIR PO SCH (16:18)
[2018-11-24] MEDS: PULMICORT 0.5 MG/2 ML NEB SCH ×2 (04:55→19:28)
[2018-11-24] MEDS: DUONEB NEB SCH ×4 (04:55→19:28)
[2018-11-24] MEDS: VASOTEC IV IVP PRN ×2 (05:29→15:10)
[2018-11-24] MEDS: SOLU-MEDROL 125 MG IVP SCH ×3 (05:29→20:14)
[2018-11-24] MEDS: PROTONIX PO SCH ×2 (05:30→17:13)
[2018-11-24] MEDS: CARAFATE PO SCH ×4 (05:30→20:13)
[2018-11-24] MEDS: FLONASE NAS SCH (08:42)
[2018-11-24] MEDS: ASPIRIN EC PO SCH (08:43)
[2018-11-24] MEDS: REQUIP PO SCH (08:43)
[2018-11-24] MEDS: COZAAR PO SCH ×2 (08:43→20:14)
[2018-11-24] MEDS: COREG PO SCH ×2 (08:43→17:14)
[2018-11-24] MEDS: PRASUGREL HCL 10 MG PO SCH (08:43)
[2018-11-24] MEDS: SPIRIVA IH SCH (08:43)
[2018-11-24] MEDS: NEURONTIN PO SCH ×2 (08:43→20:13)
[2018-11-24] MEDS: MAG-OX PO SCH (08:43)
[2018-11-24] MEDS: PERCOCET 7.5-325 PO PRN ×2 (08:43→15:10)
[2018-11-24] MEDS: SINGULAIR PO SCH (17:13)
[2018-11-24] MEDS: XANAX PO PRN (20:14)
[2018-11-25] MEDS: VASOTEC IV IVP PRN (02:24)
[2018-11-25] MEDS: PULMICORT 0.5 MG/2 ML NEB SCH (04:50)
[2018-11-25] MEDS: DUONEB NEB SCH ×2 (04:50→09:30)
[2018-11-25] MEDS: SOLU-MEDROL 125 MG IVP SCH (05:29)
[2018-11-25] MEDS: PERCOCET 7.5-325 PO PRN (05:30)
[2018-11-25] MEDS: CARAFATE PO SCH ×2 (05:30→10:25)
[2018-11-25] MEDS: PROTONIX PO SCH (05:30)
--- NOTE | 2018-11-25 08:28 | PCM.PROG ---
Attending Provider: ATTENDING PROVIDER: [facility] This patient is seen with Joyce Hill, Nurse Practitioner. DATE OF SERVICE: 11/25/18 SUBJECTIVE: This 73 year old WHITE/ F was hospitalized 11/20/18. The patient is resting comfortably. She has been up and about walking in the room. pH compensated on ABGs this a.m. Blood pressure has been elevated off and on throughout the weekend. Nursing staff failed to give Norvasc ordered p.r.n. REVIEW OF SYSTEMS: CONSTITUTIONAL: Weakness. No night sweats. No fatigue, malaise, lethargy. No fever or chills. HEENT: Eyes: No visual changes. No eye pain. No eye discharge. ENT: No runny nose. No epistaxis. No sinus pain. No odynophagia. No congestion. RESPIRATORY: Chronic shortness of breath. No cough, no congestion. No hemoptysis. CARDIOVASCULAR: No angina symptoms. No CHF symptoms. No atypical chest pain for CAD. No palpitations. No orthopnea.. GASTROINTESTINAL: No abdominal pain. No nausea or vomiting. No diarrhea or constipation. No hematemesis. No hematochezia. GENITOURINARY: No urgency. No frequency. No dysuria. No hematuria. No obstructive symptoms. No discharge. No pain. No significant abnormal bleeding. MUSCULOSKELETAL: No musculoskeletal pain; no joint swelling. NEUROLOGICAL: Awake, alert, oriented to time, place and person. No headache. No neck pain. No syncope. No seizures. No dizziness. PSYCHIATRIC: Not anxious. No depression. No suicidal thoughts. No homicidal thoughts. SKIN: No rash. No lesions. No wounds. ENDOCRINE: No unexplained weight loss. No weight gain. HEMATOLOGIC/LYMPHATIC: No anemia. No purpura. No petechiae. No prolonged or excessive bleeding. No palpable lymph nodes. PHYSICAL EXAMINATION: GENERAL: The patient is awake, alert and oriented, lying/sitting in bed in no distress. VITAL SIGNS: Temperature 98.2 F, Pulse 53, Respiratory Rate 18, BP 180/92, Pulse Ox 100% HEENT: Head normocephalic, atraumatic. Eyes: Extraocular muscles are intact. Pupils are equal, round and reactive to light and accommodation. Ears: No lesions. Nose appeared normal. Throat: No exudate or erythema. NECK: Supple. No JVD, no carotid bruit. No lymphadenopathy or thyromegaly. LUNGS: Diminished breath sounds. Clear to auscultation. Percussion note normal. Chest symmetrical. HEART: S1, S2, no S3. Grade I systolic murmur. No cyanosis or clubbing. No ascites. Pulses: Dorsalis pedis and posterior tibial pulses +1 to +2 both sides. ABDOMEN: Soft. Non-tender. Bowel sounds active. No CVA tenderness. No mass felt. EXTREMITIES: No edema. Full range of motion of all extremities, equal. NEUROLOGIC: No focal deficit. Cranial nerves II through XII are grossly intact. No headache, no double vision or headache. SKIN: Not dry. Intact. Turgor-normal. LYMPHATIC: No palpable lymph nodes/no lymphedema. MUSCULOSKELETAL: Normal joints with no swelling. Muscle tone is normal. LAB REVIEW: 11/25/18 04:34 11/25/18 04:34 11/25/18 07:00: Puncture Site L rad, O2 Saturation 97.0, ABG pH 7.508 H*, ABG pCO2 55.0 H, ABG pO2 83.0 L, ABG HCO3 43.8 H, ABG Total CO2 45 H, ABG Base Excess 21 H, Bernabe Test +, O2 Delivery Device Nc, Oxygen Liter Flow 2.00 11/25/18 04:34: Sodium 130.5 L, Potassium 3.59, Chloride 85.5 L, Carbon Dioxide 44.4 H*, Anion Gap 4.19, BUN 12.4, Creatinine 0.54 L, Estimated GFR (MDRD) 111.00, BUN/Creatinine Ratio 22.96, Glucose 156.3 H, Calcium 8.85, Total Bilirubin 0.34, AST 22.0, ALT 17.7, Alkaline Phosphatase 45.5 L, Total Protein 5.31 L, Albumin 3.08 L, Globulin 2.23, Albumin/Globulin Ratio 1.38 11/25/18 04:34: WBC 13.61 H, RBC 3.20 L, Hgb 9.9 L, Hct 30.5 L, MCV 95.3, MCH 30.9, MCHC 32.5, RDW Coeff of Lynette 12.5, Plt Count 267, Immature Gran % (Auto) 0.9, Neut % (Auto) 91.7, Lymph % (Auto) 2.5 L, [place] % (Auto) 4.8, Eos % (Auto) 0.0, Baso % (Auto) 0.1, Immature Gran # (Auto) 0.1, Neut # (Auto) 12.5 H, Lymph # (Auto) 0.3 L, [place] # (Auto) 0.7, Eos # (Auto) 0.0, Baso # (Auto) 0.0 ASSESSMENT: Please see below. 1. Chronic respiratory failure with hypercarbia 2. Hypertension PLAN: 1. Prednisone 10 mg b.i.d. for 5 days. 2. Restart K-Dur 20 mEq daily. 3. Norvasc 5 mg b.i.d. 4. Discharge to [place] today as long as blood pressure improved. 5. 02 at 2L. 6. Duonebs t.i.d. ARTHUR. 7. Pulmicort 1 mg at night ARTHUR. 8. CBC, CMP in one week. 9. D/C Xanax. Plan and coordination of the patient's care discussed in the presence of Hospital Admissions Clerk and nurse. CONDITION: Stable SCRIBED BY: SAYRA MOURA, Boarding Mother scribed while in presence of service performed by Dr. Yung/Joyce Hill APRN on 11/25/18 ([id number])
[2018-11-25] MEDS ORDERED: NORVASC PO SCH (09:00)
[2018-11-25] MEDS ORDERED: K-DUR PO SCH (09:00)
[2018-11-25] MEDS: SPIRIVA IH SCH (09:08)
[2018-11-25] MEDS: FLONASE NAS SCH (09:08)
[2018-11-25] MEDS: PRASUGREL HCL 10 MG PO SCH (09:09)
[2018-11-25] MEDS: NEURONTIN PO SCH (09:09)
[2018-11-25] MEDS: COZAAR PO SCH (09:10)
[2018-11-25] MEDS: COREG PO SCH (09:10)
[2018-11-25] MEDS: ASPIRIN EC PO SCH (09:10)
[2018-11-25] MEDS: MAG-OX PO SCH (09:11)
[2018-11-25] MEDS: REQUIP PO SCH (09:11)
[2018-11-25 11:18] VITALS: TEMP 97.9
[2018-11-25 11:19] VITALS: BP 158/78
--- NOTE | 2018-11-25 12:20 | CM.DICTOOL ---
ADMISSION: 11/20/18 11:28 DISCHARGE: 2018 DATE OF SERVICE: 11/25/18 FINAL DIAGNOSIS COPD EXACERBATION, OXYGEN DEPENDENT HYPOKALEMIA ANEMIA H/O CHRONIC RESPIRATORY FAILURE WITH HYPERCARBIA ASTHMA HYPERTENSION GERD HIATAL HERNIA DEPRESSION RECENT PANCREATITIS RLS PANCREATIC PSEUDOCYST, RECENTLY DRAINED CHOLECYSTECTOMY APPENDECTOMY HYSTERECTOMY BACK SURGERY LEFT HUMERUS FRACTURE, 05/2018 LAST VITALS Temp Pulse Resp BP Pulse Ox 97.9 F 65 18 158/78 H 98 11/25/18 11:17 11/25/18 11:17 11/25/18 11:17 11/25/18 11:18 11/25/18 11:18 TAKE THESE MEDICATIONS AT HOME Albuterol Sulfate (Proair Hfa) 1 puff IH QID PRN PRN Reason: short of air Albuterol/Ipratropium (Duoneb) 1 vial NEB RT TID [facility] Last Admin: 11/25/18 09:30 Dose: 1 vial Amlodipine Besylate (Norvasc) 5 mg PO BID [facility] Last Admin: 11/25/18 09:11 Dose: 5 mg Aspirin (Aspirin Ec) 81 mg PO DAILYWM [facility] Last Admin: 11/25/18 09:10 Dose: 81 mg Azelastine HCl (Astelin 0.1%) 2 spray DOUG BID PRN PRN Reason: Nasal Congestion Budesonide (Pulmicort 1 MG 1 vial NEB AT BEDTIME [facility] Last Admin: 11/25/18 04:50 Dose: 1 vial Carvedilol (Coreg) 6.25 mg PO BIDWM [facility] Last Admin: 11/25/18 09:10 Dose: 6.25 mg Fluticasone Propionate (Flonase) 2 spray DOUG DAILY [facility] Last Admin: 11/25/18 09:08 Dose: 2 spray Gabapentin (Neurontin) 600 mg PO BID [facility] Last Admin: 11/25/18 09:09 Dose: 600 mg Losartan Potassium (Cozaar) 50 mg PO BID [facility] Last Admin: 11/25/18 09:10 Dose: 50 mg Magnesium Oxide (Mag-Ox) 400 mg PO DAILY [facility] Last Admin: 11/25/18 09:11 Dose: 400 mg Montelukast Sodium (Singulair) 10 mg PO QPM [facility] Last Admin: 11/24/18 17:13 Dose: 10 mg Non-Formulary Medication (Prasugrel Hcl [Effient]) 10 mg PO DAILY [facility] Last Admin: 11/25/18 09:09 Dose: 10 mg Oxycodone/Acetaminophen (Percocet 7.5-325) 1 tab PO Q6HR PRN PRN Reason: Pain Last Admin: 11/25/18 05:30 Dose: 1 tab Pantoprazole Sodium (Protonix) 40 mg PO BIDAC [facility] Last Admin: 11/25/18 05:30 Dose: 40 mg Potassium Chloride (K-Dur) 20 meq PO DAILYWM [facility] Last Admin: 11/25/18 09:11 Dose: 20 meq Prednisone (Prednisone) 10 mg PO BIDWM [facility] FOR 5 DAYS Ropinirole HCl (Requip) 1 mg PO DAILY [facility] Last Admin: 11/25/18 09:11 Dose: 1 mg Sucralfate (Carafate) 1 gm PO ACHS [facility] Last Admin: 11/25/18 10:25 Dose: 1 gm Tiotropium Davis (Spiriva) 1 cap IH DAILY [facility] Last Admin: 11/25/18 09:08 Dose: 1 cap ALLERGIES tizanidine HCl [From Zanaflex] Allergy (Severe, Verified 09/07/18 19:53) hallucinates valacyclovir HCl [From Valtrex] Adverse Reaction (Severe, Verified 09/07/18 19: 53) Itching Penicillins Adverse Reaction (Verified 09/07/18 19:53) Rash DISCONTINUED MEDICATIONS ALBUTEROL NEBS SYMBICORT INHALER VITAMIN B12 IM MONTHLY NEW PRESCRIPTIONS: AMLODIPINE 5 MG BID PREDNISONE 10 MG BID FOR 5 DAYS. START AT SUPPER TONIGHT PULMICORT 1 MG NEBULIZER TREATMENT AT BEDTIME NIGHTLY K-DUR 20 MEQ DAILY COZAAR 50 MG BID SMOKING: NOT APPLICABLE DISEASE SPECIFIC EDUCATION: HYPERTENSION USE OF OXYGEN NUTRITION LAB REVIEW: 11/25/18 04:34 11/25/18 04:34 11/25/18 07:00: Puncture Site L rad, O2 Saturation 97.0, ABG pH 7.508 H*, ABG pCO2 55.0 H, ABG pO2 83.0 L, ABG HCO3 43.8 H, ABG Total CO2 45 H, ABG Base Excess 21 H, Bernabe Test +, O2 Delivery Device Nc, Oxygen Liter Flow 2.00 11/25/18 04:34: Sodium 130.5 L, Potassium 3.59, Chloride 85.5 L, Carbon Dioxide 44.4 H*, Anion Gap 4.19, BUN 12.4, Creatinine 0.54 L, Estimated GFR (MDRD) 111.00, BUN/Creatinine Ratio 22.96, Glucose 156.3 H, Calcium 8.85, Total Bilirubin 0.34, AST 22.0, ALT 17.7, Alkaline Phosphatase 45.5 L, Total Protein 5.31 L, Albumin 3.08 L, Globulin 2.23, Albumin/Globulin Ratio 1.38 11/25/18 04:34: WBC 13.61 H, RBC 3.20 L, Hgb 9.9 L, Hct 30.5 L, MCV 95.3, MCH 30.9, MCHC 32.5, RDW Coeff of Lynette 12.5, Plt Count 267, Immature Gran % (Auto) 0.9, Neut % (Auto) 91.7, Lymph % (Auto) 2.5 L, [place] % (Auto) 4.8, Eos % (Auto) 0.0, Baso % (Auto) 0.1, Immature Gran # (Auto) 0.1, Neut # (Auto) 12.5 H, Lymph # (Auto) 0.3 L, [place] # (Auto) 0.7, Eos # (Auto) 0.0, Baso # (Auto) 0.0 PLAN: DISCHARGE TO [facility] ADMIT TO SERVICES OF DR. HARESH MAI ALL OTHER ORDERS PER DR. MAI DIET: SOFT DIET TOLERATED DIETITIAN TO SEE FOR OPTIMAL NURTRIONAL INTAKE ACTIVITY: MAY GO TO DINING ROOM FOR MEALS MAY PARTICIPATE IN ACTIVITIES PROGRAM PHYSICAL AND OCCUPATIONAL THERAPY EVALUATION/TREAT NASAL OXGYEN AT 2 LITERS CONTINUOUSLY NEBULIZER TREATMENTS QID (SEE MEDICATIONS) VITAL SIGNS TWICE DAILY FOR 1 WEEK, THEN DAILY OXYGEN SATURATION DAILY ENCOURAGE POSITION CHANGES CBC, CMP IN ONE WEEK AND THEN PER DR. MAI NOTIFY DR. MAI OF ADMISSION/HALFWAY ROUNDS OR OFFICE VISIT PER DR. MAI PREFERENCE CODE STATUS: DNR MS. ALCOCER IS ALERT AND ORIENTED X 3. SHE IS AWARE AND IS AGREEABLE WITH PLANS FOR ADMISSION TO [facility]. SHE IS OXYGEN DEPENDENT WITH CURRENT OXYGEN FLOW AT 2 LITERS PER NASAL CANNULA. SHE IS ABLE TO TRANSFER FROM THE BED TO THE CHAIR AND AMBULATE TO THE BATHROOM WITH SBA OF NURSING STAFF. SHE IS INDEPENDENT WITH FEEDING. APPETITE IS ONLY 25-50%. SHE PREFERS SOFT FOODS DUE TO DIFFICULTY CHEWING. MS. ALCOCER AMBULATES TO THE BATHROOM WITH USE OF OXYGEN AND A ROLLING WALKER. SHE IS CONTINENT OF BOWEL AND BLADDER. HYDRATION STATUS IS GOOD. SKIN IS INTACT AND FREE OF DECUBITUS ULCERS. AREAS OF BRUISING NOTED TO BOTH ARMS. MD RASHIDA HARMON, ACQUISITION EDITOR
[2018-11-25] MEDS ORDERED: PREDNISONE PO SCH (17:30)
--- NOTE | 2018-12-05 11:03 | PN ---
DATE OF SERVICE: 11/24/18 SUBJECTIVE: 73-year-old white female hospitalized with COPD exacerbation, anemia. The problem seems to have resolved. REVIEW OF SYSTEMS: CONSTITUTIONAL: Weakness. No night sweats. No fatigue, malaise, lethargy. No fever or chills. HEENT: Eyes: No visual changes. No eye pain. No eye discharge. ENT: No runny nose. No epistaxis. No sinus pain. No sore throat. No odynophagia. No congestion. RESPIRATORY: No cough, no congestion. No hemoptysis. No shortness of breath. CARDIOVASCULAR: No angina symptoms. No CHF symptoms. No atypical chest pain for CAD. No palpitations. No PND. No orthopnea. GASTROINTESTINAL: No abdominal pain. No nausea or vomiting. No diarrhea or constipation. No hematemesis. No hematochezia. GENITOURINARY: No urgency. No frequency. No dysuria. No hematuria. No obstructive symptoms. No discharge. No pain. No significant abnormal bleeding. MUSCULOSKELETAL: No musculoskeletal pain; no joint swelling. NEUROLOGICAL: No headache. No neck pain. No syncope. No seizures. No dizziness. PSYCHIATRIC: Not anxious. No depression. No suicidal thoughts. No homicidal thoughts. SKIN: No rash. No lesions. No wounds. ENDOCRINE: No unexplained weight loss. No weight gain. HEMATOLOGIC/LYMPHATIC: No anemia. No purpura. No petechiae. No prolonged or excessive bleeding. No palpable lymph nodes. PHYSICAL EXAMINATION: GENERAL: The patient is sitting up in the bed feeling very comfortable wearing oxygen 2L/cannula/min. Oxygen saturation seems to be 100% with it. V/S: Temperature 97.7, pulse 56, respiratory rate 10, blood pressure 142/82. Pulse ox 100% with oxygen. HEENT: Head normocephalic, atraumatic. Eyes: Extraocular muscles are intact. Pupils are equal, round and reactive to light and accommodation. Ears: No lesions. Nose appeared normal. Throat: No exudate or erythema. NECK: Supple. No JVD, no carotid bruit. No lymphadenopathy or thyromegaly. LUNGS: Decreased breath sounds but clear to auscultation. Percussion note normal. Chest symmetrical. HEART: S1, S2, no S3. No murmurs. No cyanosis or clubbing. No ascites. Pulses: Dorsalis pedis and posterior tibial pulses +1 to +2 bilaterally. ABDOMEN: Soft. Nontender. Bowel sounds active. No CVA tenderness. No mass felt. EXTREMITIES: Trace pitting edema. Full range of motion of all extremities, equal. NEUROLOGIC: No focal deficit. Cranial nerves II through XII are grossly intact. No headache, no double vision or headache. SKIN: Not dry. Intact. Turgor - normal. LYMPHATIC: No palpable lymph nodes/no lymphedema. MUSCULOSKELETAL: Normal joints with no swelling. Muscle tone is normal. LABS: Hemoglobin 10, hematocrit 34, WBC 13,000, normal differential. Creatinine 0.6, BUN 14, potassium 3.9. ASSESSMENT: 1. COPD EXACERBATION UNDER CONTROL. 2. CHRONIC RESPIRATORY FAILURE UNDER CONTROL. 3. HYPOKALEMIA RESOLVED. 4. ANEMIA, STABLE. PLAN: 1. Continue steroids, nebs, antibiotics. 2. The patient is advised to exercise regularly. 3. The patient is strongly advised to go through pulmonary rehab, discussed in detail about it. The patient declines. 4. The patient is to be [facility] under Dr[facility] Brenton Bearden tomorrow. PROGNOSIS: Guarded. TIME SPENT: More than 30 minutes. Plan and coordination of the patient's care discussed in the presence of nurse. FABRICE
--- NOTE | 2018-12-05 11:35 | PN ---
DATE OF SERVICE: 11/25/18 SUBJECTIVE: The patient was seen and examined with the nurse practitioner. The patient's condition has improved. With even one to two liters the oxygen saturation is close to 95%. The patient has chronic respiratory failure, declined any pulmonary rehabilitation. The patient is up and about by herself. She doesn't want to go to the [facility] really but she says she doesn't have any choice. Condition is stable. Prognosis is poor. TIME SPENT: More than 30 minutes. Plan and coordination of the patient's care discussed in the presence of nurse. FABRICE
--- NOTE | 2018-12-05 11:37 | PN ---
CODING FOR BILLING 11/20/18 ADMISSION DAY LEVEL 5 11/21/18 INTERMEDIATE 11/22/18 INTERMEDIATE 11/23/18 INTERMEDIATE 11/24/18 INTERMEDIATE 11/25/18 FINAL DAY - DISCHARGE [facility]
--- NOTE | 2018-12-05 13:13 | DS ---
DATE OF SERVICE: 11/25/18 FINAL DIAGNOSIS: 1. COPD EXACERBATION, OXYGEN DEPENDENT 2. HYPOKALEMIA 3. ANEMIA 4. H/O CHRONIC RESPIRATORY FAILURE WITH HYPERCARBIA 5. ASTHMA 6. HYPERTENSION 7. GERD 8. HIATAL HERNIA 9. DEPRESSION 10. RECENT PANCREATITIS 11. RLS 12. PANCREATIC PSEUDOCYST, RECENTLY DRAINED 13. CHOLECYSTECTOMY 14. APPENDECTOMY 15. HYSTERECTOMY 16. BACK SURGERY 17. LEFT HUMERUS FRACTURE, 05/2018 LAST VITALS Temp Pulse Resp BP Pulse Ox 97.9 F 65 18 158/78 H 98 11/25/18 11:17 11/25/18 11:17 11/25/18 11:17 11/25/18 11:18 11/25/18 11:18 DISCHARGE INSTRUCTIONS: 1. DISCHARGE TO [facility] 2. ADMIT TO SERVICES OF DR. HARESH MAI ALL OTHER ORDERS PER DR. MAI 3. NASAL OXGYEN AT 2 LITERS CONTINUOUSLY 4. NEBULIZER TREATMENTS QID (SEE MEDICATIONS) 5. VITAL SIGNS TWICE DAILY FOR 1 WEEK, THEN DAILY 6. OXYGEN SATURATION DAILY 7. ENCOURAGE POSITION CHANGES 8. CBC, CMP IN ONE WEEK AND THEN PER DR. MAI 9. NOTIFY DR. MAI OF ADMISSION/[facility] ROUNDS OR OFFICE VISIT PER DR. MAI PREFERENCE MEDICATIONS AT DISCHARGE: Albuterol Sulfate (Proair Hfa) 1 puff IH QID PRN PRN Reason: short of air Albuterol/Ipratropium (Duoneb) 1 vial NEB RT TID [facility] Last Admin: 11/25/18 09:30 Dose: 1 vial Amlodipine Besylate (Norvasc) 5 mg PO BID [facility] Last Admin: 11/25/18 09:11 Dose: 5 mg Aspirin (Aspirin Ec) 81 mg PO DAILYWM [facility] Last Admin: 11/25/18 09:10 Dose: 81 mg Azelastine HCl (Astelin 0.1%) 2 spray DOUG BID PRN PRN Reason: Nasal Congestion Budesonide (Pulmicort 1 MG 1 vial NEB AT BEDTIME [facility] Last Admin: 11/25/18 04:50 Dose: 1 vial Carvedilol (Coreg) 6.25 mg PO BIDWM [facility] Last Admin: 11/25/18 09:10 Dose: 6.25 mg Fluticasone Propionate (Flonase) 2 spray DOUG DAILY [facility] Last Admin: 11/25/18 09:08 Dose: 2 spray Gabapentin (Neurontin) 600 mg PO BID [facility] Last Admin: 11/25/18 09:09 Dose: 600 mg Losartan Potassium (Cozaar) 50 mg PO BID [facility] Last Admin: 11/25/18 09:10 Dose: 50 mg Magnesium Oxide (Mag-Ox) 400 mg PO DAILY [facility] Last Admin: 11/25/18 09:11 Dose: 400 mg Montelukast Sodium (Singulair) 10 mg PO QPM [facility] Last Admin: 11/24/18 17:13 Dose: 10 mg Non-Formulary Medication (Prasugrel Hcl ) 10 mg PO DAILY [facility] Last Admin: 11/25/18 09:09 Dose: 10 mg Oxycodone/Acetaminophen (Percocet 7.5-325) 1 tab PO Q6HR PRN PRN Reason: Pain Last Admin: 11/25/18 05:30 Dose: 1 tab Pantoprazole Sodium (Protonix) 40 mg PO BIDAC [facility] Last Admin: 11/25/18 05:30 Dose: 40 mg Potassium Chloride (K-Dur) 20 meq PO DAILYWM [facility] Last Admin: 11/25/18 09:11 Dose: 20 meq Prednisone (Prednisone) 10 mg PO BIDWM [facility] FOR 5 DAYS Ropinirole HCl (Requip) 1 mg PO DAILY [facility] Last Admin: 11/25/18 09:11 Dose: 1 mg Sucralfate (Carafate) 1 gm PO ACHS [facility] Last Admin: 11/25/18 10:25 Dose: 1 gm Tiotropium Fannin (Spiriva) 1 cap IH DAILY [facility] Last Admin: 11/25/18 09:08 Dose: 1 cap NEW PRESCRIPTIONS: AMLODIPINE 5 MG BID PREDNISONE 10 MG BID FOR 5 DAYS. START AT SUPPER TONIGHT PULMICORT 1 MG NEBULIZER TREATMENT AT BEDTIME NIGHTLY K-DUR 20 MEQ DAILY COZAAR 50 MG BID DISCONTINUED MEDICATIONS: ALBUTEROL NEBS SYMBICORT INHALER VITAMIN B12 IM MONTHLY DIET INSTRUCTIONS: SOFT DIET TOLERATED DIETITIAN TO SEE FOR OPTIMAL NURTRIONAL INTAKE ACTIVITY: MAY GO TO DINING ROOM FOR MEALS MAY PARTICIPATE IN ACTIVITIES PROGRAM PHYSICAL AND OCCUPATIONAL THERAPY EVALUATION/TREAT SMOKING: NOT APPLICABLE DISEASE SPECIFIC EDUCATION: HYPERTENSION USE OF OXYGEN NUTRITION HOSPITAL COURSE: This 73-year-old white female who was admitted as a hospitalist patient. Her primary care is Dr. Mai. At home, she was feeling extremely short of breath. They called the ambulance. She was found to have oxygen saturations to the 40s and 50%. She has severe COPD, is oxygen dependent and was wearing her oxygen at home at 4L and has been all summer. Once they got her in the ambulance and to the emergency room on 4L oxygen had gone up into the 90% however ABGs upon arrival to the ER were extremely abnormal. pH 7.4, pc02 77, p02 134, bicarb 52.6. She was admitted with COPD exacerbation, respiratory failure with retention of carbon dioxide. Initially she was on the Vapotherm, high flow oxygen device, to help rid her of some C02. After about 48 to 72 hours she was able to wean effectively off of the Vapotherm, the high flow oxygen. For the past 36 hours she has been on nasal cannula at 2L and has been doing well. ABGs this morning show total compensation. pH 7.5, pc02 55, p02 83, bicarb 43.8, total c02 45. This was on 2L via nasal cannula. She has had some elevation in blood pressure. Her potassium was also significantly diminished on admission, potassium of 2.9. She was given potassium in her IV fluids as well as oral potassium. Potassium today is 3.5, had gotten as high as 5. We will discharge her on oral potassium to take at the assisted 20 mEq p.o. daily. She was anemic at 10.1 on admission, hemoglobin stable at 9.9 today, has fluctuated over the past several days. Blood pressure was elevated the first day following admission. I increased her Cozaar to 50 mg b.i.d. It has since steadily been increased. She required IV Vasotec over the weekend. We are going to send her to the assisted on Norvasc 5 b.i.d. The patient has agreed to go to [place] for rehabilitation. She would eventually like to rehab to home. We will send her with oxygen via nasal cannula at 2L along with the Norvasc, Losartan and potassium prescriptions. She was placed on IV steroids here, will send her back on Prednisone 10 mg b.i.d. for the next 5 days. She will have a CBC, CMP in one week and Dr. Mai will follow with her at the assisted. She is discharged today in stable condition. TIME SPENT: More than 60 minutes. MTDD
== END 2018-11-25 13:45 | DRG 191 ==
LOC: ED 08:58 → MEDSURG B 11:28
PROVIDERS: ADMIT Internal Medicine; ATTEND Internal Medicine
DX: D64.9 Anemia, unspecified; J45.909 Unspecified asthma, uncomplicated; K44.9 Diaphragmatic hernia without obstruction or gangrene; R53.81 Other malaise; R06.02 Shortness of breath; F32.9 Major depressive disorder, single episode, unspecified; G25.81 Restless legs syndrome; J96.12 Chronic respiratory failure with hypercapnia; E87.6 Hypokalemia; R06.2 Wheezing; I10 Essential (primary) hypertension; J44.1 Chronic obstructive pulmonary disease with (acute) exacerbation; Z99.81 Dependence on supplemental oxygen; R63.0 Anorexia; K21.9 Gastro-esophageal reflux disease without esophagitis; R05 Cough; J06.9 Acute upper respiratory infection, unspecified

== ENCOUNTER 2020-07-19 21:09 | Observation (INO) ==
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
--- NOTE | 2020-07-19 21:59 | DI ---
EXAM: Two views of the chest. History: Cough, chronic obstructive pulmonary disease Comparison: Chest radiograph 06/25/2020 Findings: Heart is mildly enlarged. No consolidation. No pleural fluid and no pneumothorax. Hyper inflation with increase in retrosternal clear space. Hiatal hernia. Atherosclerotic vascular calcif ications. Left shoulder arthroplasty. Kyphoplasties seen within the upper lumbar spine. Impression: 1. No acute cardiopulmonary process. 2. Chronic obstructive pulmonary disease. 3. Mild cardiomegaly. 4. Hiatal hernia
[2020-07-19 22:26] LABS: BASOPHILS % (AUTO) 0.3 % (0.0-3.0); EOSINOPHILS # (AUTO) 0.2 K/ul (0.0-0.7); HEMATOCRIT 30.3 % (37.0-47.0); HEMOGLOBIN 9.1 g/dl (12.0-16.0); IMMATURE GRANULOCYTE % (AUTO) 0.2 % (0.0-5.0); LYMPHOCYTES # (AUTO) 1.3 K/uL (0.60-3.4); LYMPHOCYTES % (AUTO) 14.2 (10.0-50.0); MEAN CORPUSCULAR HEMOGLOBIN 29.5 pg (27.0-31.0); MEAN CORPUSCULAR VOLUME 98.4 fl (81.0-99.0); MONOCYTES # (AUTO) 0.8 K/uL (0.4-2.0); NEUTROPHILS # (AUTO) 6.6 K/ul (2.0-6.9); NEUTROPHILS % (AUTO) 74.3 % (42.2-75.2); PLATELET COUNT 226 10^3/uL (140-440); RDW COEFFICIENT OF VARIATION 12.2 % (11.6-14.8); RED BLOOD COUNT 3.08 10^6/ul (4.20-5.40); WHITE BLOOD COUNT 8.92 K/ul (4.6-10.2)
[2020-07-19 22:38] LABS: ALANINE AMINOTRANSFERASE 6.8 U/L (0-35); ALBUMIN 3.51 g/dL (3.5-5.0); ALKALINE PHOSPHATASE 72.3 U/L (53-141); ASPARTATE AMINO TRANSFERASE 29.7 U/L (14-36); BILIRUBIN,TOTAL 0.19 mg/dL (0.2-1.3); BLOOD UREA NITROGEN 20.1 mg/dL (7-17); CALCIUM 8.74 mg/dL (8.4-10.2); CHLORIDE 90.8 mmol/L (98-107); CREATININE 0.85 mg/dL (0.60-1.30); GLUCOSE 107.1 mg/dL (74-106); POTASSIUM 5.45 mmol/L (3.5-5.1); SODIUM 131.3 mmol/L (134.5-145); TOTAL PROTEIN 5.98 g/dL (6.3-8.2)
[2020-07-19 22:42] LABS: BORDETELLA PARAPERTUSSIS (PCR) NOT DETECTED (NOT DETECT); BORDETELLA PERTUSSIS (PCR) NOT DETECTED (NOT DETECT); CHLAMYDIA PNEUMONIAE (PCR) NOT DETECTED (NOT DETECT); CORONAVIRUS 229E (PCR) NOT DETECTED (NOT DETECT); CORONAVIRUS HKU1 (PCR) NOT DETECTED (NOT DETECT); CORONAVIRUS NL63 (PCR) NOT DETECTED (NOT DETECT); CORONAVIRUS OC43 (PCR) NOT DETECTED (NOT DETECT); HUMAN METAPNEUMOVIRUS (PCR) NOT DETECTED (NOT DETECT); HUMAN RHINOVIRUS/ENTEROV (PCR) NOT DETECTED (NOT DETECT); INFLUENZA B (PCR) NOT DETECTED (NOT DETECT); MYCOPLASMA PNEUMONIAE (PCR) NOT DETECTED (NOT DETECT); PARAINFLUENZA VIRUS 1 (PCR) NOT DETECTED (NOT DETECT); PARAINFLUENZA VIRUS 2 (PCR) NOT DETECTED (NOT DETECT); PARAINFLUENZA VIRUS 3 (PCR) NOT DETECTED (NOT DETECT); PARAINFLUENZA VIRUS 4 (PCR) NOT DETECTED (NOT DETECT); RESPIRATORY SYNCYTIAL V (PCR) NOT DETECTED (NOT DETECT); SARS_COV_2 (PCR) NOT DETECTED (NOT DETECT)
[2020-07-19 22:44] LABS: CARBON DIOXIDE 38.2 mmol/L (22-30.0)
[2020-07-19 22:50] LABS: TROPONIN I 0.013 ng/ml (0.0000-0.120)
[2020-07-19] MEDS ORDERED: LEVAQUIN 500 MG/100 ML D5W 500 MG/100 ML BAG IV ONE (23:00)
[2020-07-19] MEDS ORDERED: SOLU-MEDROL 40 MG IVP ONE (23:00)
[2020-07-19] MEDS ORDERED: DUONEB NEB ONE (23:00)
[2020-07-19 23:16] LABS: ABG O2 HGB 94.7 % (95-100); BEecf 14.9 (-2.0-3.0); COHb 2.6 (0.5-1.5); HCO3 41.3 (21-28); MetHb 1.5 (0-1.5); TCO2 43.9 (19-24); sO2 97.7 % (94-98); tHb 11.8 g/dl (11.7-17.4)
[2020-07-19 23:29] LABS: ADENOVIRUS (PCR) NOT DETECTED (NOT DETECT)
[2020-07-20 01:56] VITALS: BMI 25.0
[2020-07-20 05:38] LABS: ALANINE AMINOTRANSFERASE 8.5 U/L (0-35); ALBUMIN 3.68 g/dL (3.5-5.0); ALKALINE PHOSPHATASE 74.3 U/L (53-141); ASPARTATE AMINO TRANSFERASE 33.4 U/L (14-36); BILIRUBIN,TOTAL 0.35 mg/dL (0.2-1.3); BLOOD UREA NITROGEN 18.5 mg/dL (7-17); CALCIUM 8.64 mg/dL (8.4-10.2); CREATININE 0.64 mg/dL (0.60-1.30); GLUCOSE 144.5 mg/dL (74-106); POTASSIUM 5.67 mmol/L (3.5-5.1); SODIUM 127.7 mmol/L (134.5-145); TOTAL PROTEIN 6.17 g/dL (6.3-8.2)
[2020-07-20 05:43] LABS: CARBON DIOXIDE 37.1 mmol/L (22-30.0)
[2020-07-20 05:47] LABS: BASOPHILS % (AUTO) 0.2 % (0.0-3.0); EOSINOPHILS % (AUTO) 0.1 % (0.0-7.0); HEMATOCRIT 31.4 % (37.0-47.0); HEMOGLOBIN 9.7 g/dl (12.0-16.0); IMMATURE GRANULOCYTE # (AUTO) 0.1 (0.0-1.0); IMMATURE GRANULOCYTE % (AUTO) 0.5 % (0.0-5.0); LYMPHOCYTES # (AUTO) 0.5 K/uL (0.60-3.4); LYMPHOCYTES % (AUTO) 4.3 (10.0-50.0); MEAN CORPUSCULAR HEMOGLOBIN 29.8 pg (27.0-31.0); MEAN CORPUSCULAR HGB CONC 30.9 (31.8-35.4); MEAN CORPUSCULAR VOLUME 96.6 fl (81.0-99.0); MONOCYTES # (AUTO) 0.2 K/uL (0.4-2.0); MONOCYTES % (AUTO) 1.4 (0-10); NEUTROPHILS # (AUTO) 11.3 K/ul (2.0-6.9); NEUTROPHILS % (AUTO) 93.5 % (42.2-75.2); PLATELET COUNT 245 10^3/uL (140-440); RDW COEFFICIENT OF VARIATION 12.1 % (11.6-14.8); RED BLOOD COUNT 3.25 10^6/ul (4.20-5.40); WHITE BLOOD COUNT 12.05 K/ul (4.6-10.2)
--- NOTE | 2020-07-20 07:25 | PCM ---
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 of benefit R/B/A d/w patient. - Discussed risks/benefits to Tylenol/NSAIDS. Caution with combo meds. - Allergy recommendations discussed. - Handwashing discussed/encouraged - Tobacco avoidance discussed specifically - Home meds reconciled. - Stop budesonide nebs. - albuterol 4 puffs q 4 hours shared canister model. - Incentive spirometry to be considered. - daily 0600 CBC/CMP. -O2 titrate to >88 to <98% Hyponatremia: Eval corrected sodium today. Will hold lexapro. Will add 2L fluid intake limitations . No fluids IV for now. If no improvement tomorrow, consider urine/serum osmolality. 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 She is drinking liquids without eating much solute. - Repeat CMP in am - Stop lexapro - 2L Fluid intake daily. Hyperkalemia: Taking K+ supplements. She is acidotic compensated chronically. I suspect she will drop K+ once we give regular nebs. - Albuterol 4puffs q 4 hours. - Repeat CMP in am - Stop K+Cl- overnight. - mg++ level tomorrow am. Oxygen dependent: O2 at 2-3L titrate to >88 to <98%. Lumbar Pain/Shoulder pain/Chronic Opiate use: Chronic/stable problem. We d iscussed opiates as a form of pain medication to act as an adjunct to Tylenol, NSAIDS, steroids, topical rubs such as icyhot, bengay, biofreeze, aspercreme, cool/warm compresses, stretching/exercising etc. We discussed pain cream. Discussed to consider f/u with pain management to discuss other options. Opiates are not meant to eliminate pain but rather are designed to facilitate function and improve ADL. We discussed ADL today, discussed goals of therapy. We talked specifically about R/B/A to opiates, to overuse of opiates and dangers of using opiates even at recommended levels. We discussed frequency of visits depends on history and is individualized to the patient. We typically will see patients at least every 1-3 months for focused physical exam to make sure the medical course is stable. There is no published guideline for UDS. This is to reduce diversion, to make sure patient is actually taking them and not using illegal drugs. Random UDS are utilized to reduce chances of cheating the system. Patient can expect minimum of 2 per year scheduled and or random and if any compliance questions are considered. Discussed multiple rx can be given but again case by case basis. There will be no early fills, no after hours fills. We reviewed the level of pain, ADL, any adverse effects, and aberrant drug-related behaviors. We also reviewed personal and family history of substance abuse and discussed appropriate destruction of unwanted Rx. Reviewed risks of tolerance/dependence/addiction. These medications are dangerous and any abnormal behavior may limit our ability to continue these agents. - Continue home medication. Depression: Chronic established problem. We reviewed current therapy for this problem and discussed R/B/A to continued care/cessation of therapy. Discussed need to follow recommendations and to use medications regularly as prescribed, to avoid missing doses as able. Medications reviewed with patient today. We discussed cessation/continuation of medications for current problem. Reordered med refills if needed (see orders). No side effects from medications reported. Risks/benefits to current therapy discussed. Currently on lexapro. We will hold this due to hyponatremia. - Stop lexapro today. d/w patient s/sx of withdrawal and to monitor/call if problematic. 1/2 Pack per day: Tobacco Cessation discussed today for 2 minutes. We reviewed lifestyle choices and discussed quitting. Ready to quit status discussed. The risks and hazards of continued tobacco abuse were discussed with the patient today and total tobacco cessation as recommended. It was clearly and unambiguously explained that continued tobacco usage will adversely affect overall morbidity and mortality of the patient. Patient was informed that tobacco use can lead to numerous cancers, worsening of cardiovascular and pulmonary systems and that lung damage is often permanent and irreversible. I advised the patient to inform me if any further assistance is requested, as we can offer counseling services, nicotine replacement inhaled, patch, lozenge, gum, or prescription medications to include Chantix or Wellbutrin for assistan ce. I will reassess the interest in tobacco cessation at the next and all subsequent visits. - Not interested in patches during hospital stay. Diet: As tolerated Activity: Fall Precautions. Monitor I+O. Offered tobacco patch, declined. GI Prophy: On PPI already, resume home medications. DVT Prophy: Lovenox 40mg subcutaneous daily. Disposition: She is not too far off from baseline. I agree w/ abx changes and with need for observation. I will cover with levaquin, nebs to be stopped and we will treat with shared canister inhalers. She has hyponatremia/hyperkalemia that require monitoring. Will consider next line serum/urine osmolality and evaluation for SIADH and other causes of hyponatremia. I suspect polydipsia as most likely. Lexapro to be stopped. I will see her back in am tomorrow. O2 to be titrated to 88-98%. She needs to breath more deeply, get out of bed. Opiate R/B/A d/w patient. Continue tobacco avoidance d/w patient. See back in am 07/21/20. Total time rounding with patient today 72 minutes, not including documentation.
[2020-07-20] MEDS: FLONASE NAS SCH (09:14)
[2020-07-20] MEDS: PROTONIX PO SCH ×2 (09:15→17:24)
[2020-07-20] MEDS: NEURONTIN PO SCH ×2 (09:15→20:28)
[2020-07-20] MEDS: COZAAR PO SCH (09:15)
[2020-07-20] MEDS: SINGULAIR PO SCH (09:16)
[2020-07-20] MEDS: REQUIP PO SCH (09:16)
[2020-07-20] MEDS: COREG PO SCH ×2 (09:16→17:24)
[2020-07-20] MEDS: PREDNISONE PO SCH (09:16)
[2020-07-20] MEDS: ASPIRIN EC PO SCH (09:17)
[2020-07-20] MEDS: PERCOCET 7.5-325 PO PRN ×2 (09:17→20:28)
[2020-07-20] MEDS: MAG-OX PO SCH (09:18)
[2020-07-20] MEDS: VENTOLIN HFA (PER PUFF-WITH SPACER) IH SCH ×4 (10:35→21:45)
[2020-07-20] MEDS: ATROVENT HFA INHALER (PER PUFF-WITH SPACER) IH SCH ×3 (11:02→23:39)
[2020-07-21] MEDS: VENTOLIN HFA (PER PUFF-WITH SPACER) IH SCH ×3 (01:31→10:03)
[2020-07-21] MEDS: PERCOCET 7.5-325 PO PRN (02:55)
[2020-07-21] MEDS: ATROVENT HFA INHALER (PER PUFF-WITH SPACER) IH SCH (05:37)
[2020-07-21 05:49] LABS: BASOPHILS % (AUTO) 0.1 % (0.0-3.0); HEMATOCRIT 27.5 % (37.0-47.0); HEMOGLOBIN 8.7 g/dl (12.0-16.0); IMMATURE GRANULOCYTE % (AUTO) 0.3 % (0.0-5.0); LYMPHOCYTES # (AUTO) 1.3 K/uL (0.60-3.4); MEAN CORPUSCULAR HEMOGLOBIN 29.9 pg (27.0-31.0); MEAN CORPUSCULAR HGB CONC 31.6 (31.8-35.4); MEAN CORPUSCULAR VOLUME 94.5 fl (81.0-99.0); MONOCYTES # (AUTO) 0.7 K/uL (0.4-2.0); MONOCYTES % (AUTO) 8.9 (0-10); NEUTROPHILS # (AUTO) 5.4 K/ul (2.0-6.9); NEUTROPHILS % (AUTO) 72.7 % (42.2-75.2); PLATELET COUNT 232 10^3/uL (140-440); RED BLOOD COUNT 2.91 10^6/ul (4.20-5.40); WHITE BLOOD COUNT 7.44 K/ul (4.6-10.2)
[2020-07-21 05:54] VITALS: BP 156/85; TEMP 97.7
[2020-07-21] MEDS: PROTONIX PO SCH (05:54)
[2020-07-21 06:07] LABS: ALANINE AMINOTRANSFERASE 7.5 U/L (0-35); ALBUMIN 3.53 g/dL (3.5-5.0); ALKALINE PHOSPHATASE 71.3 U/L (53-141); ASPARTATE AMINO TRANSFERASE 24.6 U/L (14-36); BILIRUBIN,TOTAL 0.23 mg/dL (0.2-1.3); BLOOD UREA NITROGEN 12.9 mg/dL (7-17); CALCIUM 8.75 mg/dL (8.4-10.2); CHLORIDE 85.3 mmol/L (98-107); CREATININE 0.69 mg/dL (0.60-1.30); GLUCOSE 109.3 mg/dL (74-106); MAGNESIUM 1.93 mg/dL (1.6-2.3); POTASSIUM 4.04 mmol/L (3.5-5.1); SODIUM 129.6 mmol/L (134.5-145); TOTAL PROTEIN 5.98 g/dL (6.3-8.2)
[2020-07-21 06:15] LABS: CARBON DIOXIDE 40.3 mmol/L (22-30.0)
[2020-07-21] MEDS ORDERED: LEVAQUIN PO SCH (06:30)
--- NOTE | 2020-07-21 07:31 | PCM.PROG ---
Date Seen by Provider: 07/21/20 Time Seen by Provider: 07:10 Subjective: 74 yo CF HD #2 COPD exacerbation, hyponatermia, hyperkalemia, hypoxia on chronic o2, respiratory acidosis chronic, with chronic tobacco use, depression, chronic opiate use, essential HTN. Vitals reviewed overnight: Temp remains afebrile, pulse 64-75, BP 150/62, 180/79, 175/74, 156/85, RR 18-24 with 18-20 since 21:25 on 07/20/20, maintained O2 96-100 on 3L. Tele monitored and SR with PAC noted throughout the night. No concerning rhythms noted. I+O evaluated. She has had 2+ voids recorded. She is using bedside commode. Reported 2250ml out on 07/20/20. 50% of dinner consumed. Labs this am WBC normal at 7.44. Hgb 8.7 down from 9.7. MCV is normal 94.5. Plt 232. RDW normal. Diff is normal. Chemistry this am. Sodium improved from 127.7 to 129.6. Potassium has normalized likely from albuterol at 4.04. Cl 85.3. CO2 40.3. Creatinine stable 0.69. Glucose 109.3. Mg+++ normal at 1.93. AST 24.6, alt 7.5, alk phos 71.3 and normal. Nursing documentation reviewed overnight. Still w/ exertional SOA noted on CLYDE Siegel note at 1930. Diminished sounds throughout. Exp wheezes noted. Chronic pain mentioned (shoulders 10/12). Limiting to 2L per day. This am 0604 CLYDE siegel. Still left shoulder pain, fall from prior admission and in jury. CO2 was noted critical this am. She is not breathing deeply, need to encourage this again. Reviewed patient record and noted lovenox had been left off from yesterday. We will add this agent this am. Patient is just about baseline and could benefit from one more hospital day. I would like to get her involved with pulm rehab, once this fully opens from COVID restrictions. We have stopped her lexapro for concern of SIADH and reduction of sodium. I suspect some polydipsia as well. Chronic pain, on opiates. She is aware of r/b/a to opiate use and will continue to use these. Daugther in room today. We discussed overall care and both patient/daughter feel that they are ready to go home now and that she is bacck to baseline. WE discussed polydipsia. We discussed need to limit intake of fluids, stopped the lexapro. We discussed lovenox, they did not want it this am, I will cancel as plan now is to d/c home. She has reached point of maximal hospital benefit. See me in 1 week and we will address hospital f/u. REVIEW OF SYMPTOMS: (Positives bolded) General: weight loss, fever, chills, night sweats, fatigue, appetite loss HEENT: blurry vision, eye pain, eye discharge, dry eyes, decreased vision, sore throat, tinnitus, bloody nose, hearing loss, sinus pain/pressure, ear pain/pressure. Respiratory: shortness of breath (chronic), cough, hemoptysis, wheezing, pleurisy, Cardiovascular: chest pain, PND, palpitation, edema, orthopnea, syncope, swelling of extremities Gastro: Nausea, vomiting, diarrhea, hematemesis, abdominal pain, constipation Genito: hematuria, dysuria, glycosuria, hesitancy, frequency, incontinence [place]: Arthralgia, myalgia, of back muscle weakness, joint swelling, NSAID use Skin: rash, pruritis, sores, nail changes, skin thickening, change in wart/mole, itching, rash, new lesions, pruritus, nail changes Neuro: Migraine, numbness, ataxia, tremor, vertigo, weakness, memory loss, Irritability, dizziness Endocrine: excessive thirst, polyuria, cold intolerance, heat intolerance, goiter Psychiatric: depression, anxiety, anti-depressants, alcohol abuse, drug abuse, insomnia, change in sleep pattern and mood changes Heme/lymph: easy bruising, bleeding gums, blood clots, swollen glands, lymphedema, Allergic/immune: allergic rhinitis, hay fever, asthma, hives Objective: Vital Signs - 24 hr 07/20/20 11:01 07/20/20 14:00 07/20/20 20:00 Temperature 97.6 F Pulse Rate 66 Respiratory Rate 24 Blood Pressure 150/62 H O2 Sat by Pulse Oximetry 98 98 96 07/20/20 21:25 07/20/20 23:08 07/21/20 05:38 Temperature 97.9 F Pulse Rate 64 75 Respiratory Rate 18 20 Blood Pressure 180/79 H 175/74 H O2 Sat by Pulse Oximetry 98 96 05/ 05:52 Temperature 97.7 F Pulse Rate 64 Respiratory Rate 18 Blood Pressure 156/85 H O2 Sat by Pulse Oximetry 100 Constitutional: Appearance-Breathing is stable today. +Hirsuitism upper lip, Consistent with stated age. Orientation- Oriented x 3, alert Build and Nutrition-[normal] General- Patient is pleasant and cooperative with the interview and exam. She is a bit more upright, positive, attentive, and interactive. Integumentary: General-No rashes, ulcers or lesions. Palpation- Normal skin moisture/turgor. Skin is warm to touch, appropriate. Capillary refill is normal bilateral Upper and lower extremity. Bruising along anterior chest, right bicep, left bicep down to proximal foream. Posterior lateral scapular border on left. ENMT: Nares- O2 3L via NC in place. bilateral quiet airflow, no discharge. Nasal mucosa- No breakdown.No bleeding noted and no ulcerations observed. [place], moist. Turbinates non boggy. Lips- normal color, moist without cracks/lesions Oral Cavity/Palate- hard/soft palate intact without lesions, oral mucosa pink and moist. Dentures Tongue normal midline. Oropharynx- no pharyngeal erythema, Uvula midline. No post nasal drip. No exudate. Salivary glands- Non tender to palpation CHEST/LUNG: No distress, still w/ abdominal breathing, no other use of accessory muscles. Palpation- nontender sternum, ribline pectoralis region Auscultation- Breath sounds decreased/coarse throughout. Baseline state. Encouraged deeper breathing. Will get incentive spirometer for her. tracheal sounds, bronchial sounds overlying sternum, Bronchovessicular sounds between scapulae posteriorly, vessicular breath sounds heard throughout periphery coarse and still w/ scattered rhonchi. MIld peripheral/lower lobe crackling. Scattered wheezes, Scattered rhonchi. Tolerating O2 NC. CARDIOVASCULAR: Palpation/Percussion- Normal PMI, no palpable thrill Auscultation- Regular rate and rhythm. Distant sounds, III/ murmur left sternal border noted in sitting, supine positions. This does radiate into axilla and carotid region. Extremities- no cyanosis, no edema, clubbing, no increased warmth of extremities ABDOMEN: Inspection- normal and no visible pulsations. Normal contour. Auscultation- Bowel sounds normal, no abdominal bruits. Palpation/Percussion- soft, non-tender, no rebound tenderness, no rigidity (guarding), no jar tenderness, no masses. Liver/spleen no HSM. Peripheral Vascular: Upper extremity Left- Normal temperature with pink nailbeds and no ulcerations. Upper extremity Right- Normal temperature with pink nailbeds and no ulcerations. Lower extremity- Normal temperature with pink nailbeds and no ulcerations. DP pulses 2+ bilaterally. Onychomycosis, nail hypertrophy is present. Pedal hair reduced but intact. Normal capillary refill. Edema- No edema. Musculoskeletal: Generalized-No generalized swelling or edema of extremities, no digital clubbing or cyanosis, neurovascularly intact all four extremities. Upper extremity- No visible deformity. Tender upper trap bilaterally. ?Postural. Normal sensation along medial and lateral upper extremity proximally and distally. NO tenderness overlying shoulder, lateral/medial epicondyle. Washing Machine Installer 5/5 and strength 5/5 bilateral UE. Elbow palpated, no tenderness overlying olecranon. Normal supination, pronation to active/passive ROM and to resisted rotation. Bicep insertion/tricep insertion appear normal without obvious pathology. Normal wrist ROM bilaterally. Normal hand movement, intrinsic muscles of hands normal. No tenderness to palpation of hands/wrists/elbows. Lower extremity- Not tender to palpation, no pain, no swelling, edema or erythema of surrounding tissue, normal strength and tone. Normal appearing hip ROM bilaterally without pain. Knee ROM normal at 0-120 degrees. No tenderness overlying trochanters, no tenderness about patella, quad tendon, patellar tendon. No tenderness at tibial tuberosity. Ankle normal ROM not tender to palpation along medial/lateral malleolus. Normal movement of toes, no tenderness bilateral feet/toes. Spine/Ribs- No deformities, masses or tenderness, no known fractures, normal strength, Normal ROM. Normal stability No tenderness along C/T/L spine. Normal appearing ROM about spine Neurological: General- Moves all 4 extremities, SAI is currently in sling. Symmetrical face and body posture. Cranial nerves- individually evaluated II-XII and intact. PERRLA, Normal EOMI, visual/special senses appear intact, Face is symmetrical and normal sensation/movement, normal tongue, normal strength/posture of neck musculature. Reflexes- intact with DTR 2+ patellar, Achilles, Strength- 5/5 bilateral UE and LE. Soft touch- intact bilateral UE and LE. Temperature sensation- intact bilateral UE and LE. Neuropsych: Oriented- Person, place, time. (AAOx3), GCS 15, Mood/affect- normal and congruent. Pain controlled. She is Able to articulate okay, answers questions appropriately. Speech-Normal speech, normal rate, normal tone, normal use of language, volume and coherence. Thought content- Diminished, could not do basic computations, unable to spell world backwards. Able to apply abstract thought/reason. Associations- questionable, no SI/HI, no hallucinations, delusions, obsessions. Lymphatic: Head/Neck- normal size and non tender to palpation. Axillary- normal size and non tender to palpation. Femoral and Inguinal- normal size and non te nder to palpation. Laboratory Last Values WBC 7.44 K/ul (4.6-10.2) 07/21/20 04:53 RBC 2.91 10^6/ul (4.20-5.40) L 07/21/20 04:53 Hgb 8.7 g/dl (12.0-16.0) L 07/21/20 04:53 Hct 27.5 % (37.0-47.0) L 07/21/20 04:53 MCV 94.5 fl (81.0-99.0) 07/21/20 04:53 MCH 29.9 pg (27.0-31.0) 07/21/20 04:53 MCHC 31.6 (31.8-35.4) L 07/21/20 04:53 RDW Coeff of Lynette 12.0 % (11.6-14.8) 07/21/20 04:53 Plt Count 232 10^3/uL (140-440) 07/21/20 04:53 Immature Gran % (Auto) 0.3 % (0.0-5.0) 07/21/20 04:53 Neut % (Auto) 72.7 % (42.2-75.2) 07/21/20 04:53 Lymph % (Auto) 18.0 (10.0-50.0) 07/21/20 04:53 [place] % (Auto) 8.9 (0-10) 07/21/20 04:53 Eos % (Auto) 0.0 % (0.0-7.0) 07/21/20 04:53 Baso % (Auto) 0.1 % (0.0-3.0) 07/21/20 04:53 Neut # (Auto) 5.4 K/ul (2.0-6.9) 07/21/20 04:53 Lymph # (Auto) 1.3 K/uL (0.60-3.4) 07/21/20 04:53 [place] # (Auto) 0.7 K/uL (0.4-2.0) 07/21/20 04:53 Eos # (Auto) 0.0 K/ul (0.0-0.7) 07/21/20 04:53 Baso # (Auto) 0.0 K/uL (0-0.2) 07/21/20 04:53 Immature Gran # (Auto) 0.0 (0.0-1.0) 07/21/20 04:53 Puncture Site Lb 07/19/20 23:10 Base Excess 14.9 (-2.0-3.0) H 07/19/20 23:10 O2 Saturation 97.7 % (94-98) 07/19/20 23:10 ABG pH 7.30 (7.35-7.45) L 07/19/20 23:10 ABG pCO2 84.0 mmHg (35-45) H 07/19/20 23:10 ABG pO2 108.0 mmHg (85-100) H 07/19/20 23:10 ABG HCO3 41.3 (21-28) H 07/19/20 23:10 ABG Total CO2 43.9 (19-24) H 07/19/20 23:10 Bernabe Test + 07/19/20 23:10 Hemoglobin 1.5 (0-1.5) 07/19/20 23:10 Oxyhemoglobin 94.7 % (95-100) L 07/19/20 23:10 Carboxyhemoglobin 2.6 (0.5-1.5) H 07/19/20 23:10 Total Hemoglobin 11.8 g/dl (11.7-17.4) 07/19/20 23:10 O2 Delivery Device Cannula 07/19/20 23:10 Oxygen Liter Flow 3.00 07/19/20 23:10 FiO2 % 32.0 % 07/19/20 23:10 Sodium 129.6 mmol/L (134.5-145) L 07/21/20 04:53 Potassium 4.04 mmol/L (3.5-5.1) 07/21/20 04:53 Chloride 85.3 mmol/L (98-107) L 07/21/20 04:53 Carbon Dioxide 40.3 mmol/L (22-30.0) H* 07/21/20 04:53 Anion Gap 8.04 07/21/20 04:53 BUN 12.9 mg/dL (7-17) 07/21/20 04:53 Creatinine 0.69 mg/dL (0.60-1.30) 07/21/20 04:53 Estimated GFR (MDRD) 83.00 mL/min 07/21/20 04:53 BUN/Creatinine Ratio 18.69 07/21/20 04:53 Glucose 109.3 mg/dL (74-106) H 07/21/20 04:53 Calcium 8.75 mg/dL (8.4-10.2) 07/21/20 04:53 Magnesium 1.93 mg/dL (1.6-2.3) 07/21/20 04:53 Total Bilirubin 0.23 mg/dL (0.2-1.3) 07/21/20 04:53 AST 24.6 U/L (14-36) 07/21/20 04:53 ALT 7.5 U/L (0-35) 07/21/20 04:53 Alkaline Phosphatase 71.3 U/L (53-141) 07/21/20 04:53 Troponin I 0.013 ng/ml (0.0000-0.120) 07/19/20 22:23 NT-Pro-B Natriuret Pep 708.000 pg/mL (0-124) H 07/19/20 22:23 Total Protein 5.98 g/dL (6.3-8.2) L 07/21/20 04:53 Albumin 3.53 g/dL (3.5-5.0) 07/21/20 04:53 Globulin 2.45 07/21/20 04:53 Albumin/Globulin Ratio 1.44 07/21/20 04:53 Adenovirus (PCR) Not detected (NOT DETECT) 07/19/20 22:37 B. pertussis DNA (PCR) Not detected (NOT DETECT) 07/19/20 22:37 B.parapertussis DNA PCR Not detected (NOT DETECT) 07/19/20 22:37 C. pneumoniae DNA (PCR) Not detected (NOT DETECT) 07/19/20 22:37 Coronavirus OC43 (PCR) Not detected (NOT DETECT) 07/19/20 22:37 Coronavirus HKU1 (PCR) Not detected (NOT DETECT) 07/19/20 22:37 Coronavirus 229E (PCR) Not detected (NOT DETECT) 07/19/20 22:37 Coronavirus NL63 (PCR) Not detected (NOT DETECT) 07/19/20 22:37 Human Metapneumovir PCR Not detected (NOT DETECT) 07/19/20 22:37 Influenza Type A (PCR) Not detected (NOT DETECT) 07/19/20 22:37 Influenza B (RT-PCR) Not detected (NOT DETECT) 07/19/20 22:37 M. pneumoniae (PCR) Not detected (NOT DETECT) 07/19/20 22:37 Parainfluenza 1 (PCR) Not detected (NOT DETECT) 07/19/20 22:37 Parainfluenza 2 (PCR) Not detected (NOT DETECT) 07/19/20 22:37 Parainfluenza 3 (PCR) Not detected (NOT DETECT) 07/19/20 22:37 Parainfluenza 4 (PCR) Not detected (NOT DETECT) 07/19/20 22:37 RSV (PCR) Not detected (NOT DETECT) 07/19/20 22:37 Entero/Rhino (PCR) Not detected (NOT DETECT) 07/19/20 22:37 SARS-CoV-2 (PCR) Not detected (NOT DETECT) 07/19/20 22:37 (1) COPD exacerbation: Status: Acute Code(s): J44.1 - Chronic obstructive pulmonary disease with (acute) exacerbation SNOMED Code(s): 661312965 (2) Smokes 1/2 pack a day or less: Status: Acute Code(s): F17.210 - Nicotine dependence, cigarettes, uncomplicated SNOMED Code(s): 542667037 (3) Hypertension: Status: Acute Code(s): I10 - Essential (primary) hypertension SNOMED Code(s): 53254824 (4) Hyponatremia: Status: Resolved Code(s): E87.1 - Hypo-osmolality and hyponatremia SNOMED Code(s): 64866771 (5) Hyperkalemia: Status: Acute Code(s): E87.5 - Hyperkalemia SNOMED Code(s): 01042929 (6) Chronic respiratory acidosis: Status: Acute Code(s): E87.2 - Acidosis SNOMED Code(s): 7623949 (7) Opiate use: Status: Acute Code(s): F11.90 - Opioid use, unspecified, uncomplicated SNOMED Code(s): 040929596 (8) Oxygen dependent: Status: Acute Code(s): Z99.81 - Dependence on supplemental oxygen SNOMED Code(s): 575593301531 (9) Depression: Status: Acute Code(s): F32.9 - Major depressive disorder, single episode, unspecified SNOMED Code(s): 37143351 (10) Lumbar pain: Status: Acute Code(s): M54.5 - Low back pain SNOMED Code(s): 709845997
[2020-07-21] MEDS: PREDNISONE PO SCH (08:15)
[2020-07-21] MEDS: ASPIRIN EC PO SCH (08:16)
[2020-07-21] MEDS: COZAAR PO SCH (08:16)
[2020-07-21] MEDS: REQUIP PO SCH (08:16)
[2020-07-21] MEDS: NEURONTIN PO SCH (08:16)
[2020-07-21] MEDS: MAG-OX PO SCH (08:17)
[2020-07-21] MEDS: COREG PO SCH (08:17)
[2020-07-21] MEDS: FLONASE NAS SCH (08:17)
[2020-07-21] MEDS: SINGULAIR PO SCH (08:17)
--- NOTE | 2020-07-21 08:34 | PCM.DC ---
Final Diagnosis: 1. COPD Exacerbation chronic hypoxia on O2 replacement. 2. tobacco use 1/2ppd or less 3. HTN 4. Hyponatremia 5. hyperkalemia 6. Chronic opiate use 7. Chronic pain in left shoulder 8. Chronic Lumbar pain 9. 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 (1) COPD exacerbation: Status: Acute Code(s): J44.1 - Chronic obstructive pulmonary disease with (acute) exacerbation SNOMED Code(s): 778233694 (2) Smokes 1/2 pack a day or less: Status: Acute Code(s): F17.210 - Nicotine dependence, cigarettes, uncomplicated SNOMED Code(s): 025223323 (3) Hypertension: Status: Acute Code(s): I10 - Essential (primary) hypertension SNOMED Code(s): 71996978 (4) Hyponatremia: Status: Resolved Code(s): E87.1 - Hypo-osmolality and hyponatremia SNOMED Code(s): 13214036 (5) Hyperkalemia: Status: Acute Code(s): E87.5 - Hyperkalemia SNOMED Code(s): 19649882 (6) Chronic respiratory acidosis: Status: Acute Code(s): E87.2 - Acidosis SNOMED Code(s): 4776090 (7) Opiate use: Status: Acute Code(s): F11.90 - Opioid use, unspecified, uncomplicated SNOMED Code(s): 519428861 (8) Oxygen dependent: Status: Acute Code(s): Z99.81 - Dependence on supplemental oxygen SNOMED Code(s): 841846785043 (9) Depression: Status: Acute Code(s): F32.9 - Major depressive disorder, single episode, unspecified SNOMED Code(s): 77593556 (10) Lumbar pain: Status: Acute Code(s): M54.5 - Low back pain SNOMED Code(s): 836523732 Reason for Hospitalization: COPD exacerbation, respiratory acidosis (chronic compensated), hyponatremia, hyperkalemia, SOA/MAIN, worsening baseline state, chronic o2. Prognosis at Discharge: Fair to good. Back to essentially a baseline state. Condition at Discharge: Improved back to appropriate baseline state. Maximized benefit of hospital stay/observation. Sodium improved, Hyperkalemia resolved. Medications at Discharge: Ambulatory Orders Medication Instructions Recorded aspirin 81 mg tablet,delayed 81 mg PO DAILY 90 Days #90 tab-cap 04/30/19 release fluticasone propionate 50 2 spray INTRANASAL DAILY 30 Days 04/30/19 mcg/actuation nasal #1 inha spray,suspension albuterol sulfate 90 mcg/actuation 2 puff IH .q 4 hour PRN #18 gm 02/03/20 aerosol inhaler magnesium oxide 400 mg (241.3 mg 400 mg PO DAILY 90 Days #90 tab 02/04/20 magnesium) tablet potassium chloride 20 mEq 20 meq PO DAILY #30 tab 02/13/20 tablet,extended release(part/cryst) prasugrel 10 mg tablet 10 mg PO DAILY 30 Days #30 tab-cap 04/27/20 tiotropium bromide 18 mcg capsule See Rx Instructions .ROUTE 05/03/20 with inhalation device .COMPLEX #30 inh budesonide 0.5 mg/2 mL suspension 0.5 mg INHALATION BID #60 ml 05/24/20 for nebulization benzonatate [Tessalon Perles] 200 mg PO TID PRN #30 cap 06/25/20 losartan 50 mg tablet 75 mg PO QDAY #45 tab 06/30/20 pantoprazole 40 mg tablet,delayed 40 mg PO BID #60 tab-cap 06/30/20 release oxycodone-acetaminophen 7.5 mg-325 0.5 tab PO QID PRN #60 tab 07/01/20 mg tablet albuterol sulfate 2.5 mg INHALATION Q6H #180 ml 07/13/20 montelukast 10 mg tablet 10 mg PO DAILY 30 Days #30 tab-cap 07/13/20 ropinirole 1 mg tablet 1 mg PO DAILY #30 tab-cap 07/13/20 carvedilol 6.25 mg tablet 6.25 mg PO BIDWM 30 Days #60 tab 07/20/20 gabapentin 600 mg tablet 600 mg PO BID 90 Days #180 tab-cap 07/20/20 levofloxacin 750 mg PO DAILY #4 tab 07/21/20 prednisone 40 mg PO DAILYWM 5 Days #10 tab 07/21/20 Lab/Diagnostics: Laboratory Tests 07/19/20 07/19/20 07/19/20 22:23 22:23 22:37 WBC 8.92 RBC 3.08 L Hgb 9.1 L Hct 30.3 L MCV 98.4 MCH 29.5 MCHC 30.0 L RDW Coeff of Lynette 12.2 Plt Count 226 Immature Gran % (Auto) 0.2 Neut % (Auto) 74.3 Lymph % (Auto) 14.2 [place] % (Auto) 9.0 Eos % (Auto) 2.0 Baso % (Auto) 0.3 Neut # (Auto) 6.6 Lymph # (Auto) 1.3 [place] # (Auto) 0.8 Eos # (Auto) 0.2 Baso # (Auto) 0.0 Immature Gran # (Auto) 0.0 Puncture Site Base Excess O2 Saturation ABG pH ABG pCO2 ABG pO2 ABG HCO3 ABG Total CO2 Bernabe Test Hemoglobin Oxyhemoglobin Carboxyhemoglobin Total Hemoglobin O2 Delivery Device Oxygen Liter Flow FiO2 % Sodium 131.3 L Potassium 5.45 H Chloride 90.8 L Carbon Dioxide 38.2 H Anion Gap 7.75 BUN 20.1 H Creatinine 0.85 Estimated GFR (MDRD) 66.00 BUN/Creatinine Ratio 23.64 Glucose 107.1 H Calcium 8.74 Magnesium Total Bilirubin 0.19 L AST 29.7 ALT 6.8 Alkaline Phosphatase 72.3 Troponin I 0.013 NT-Pro-B Natriuret Pep 708.000 H Total Protein 5.98 L Albumin 3.51 Globulin 2.47 Albumin/Globulin Ratio 1.42 Adenovirus (PCR) Not detected B. pertussis DNA (PCR) Not detected B.parapertussis DNA PCR Not detected C. pneumoniae DNA (PCR) Not detected Coronavirus OC43 (PCR) Not detected Coronavirus HKU1 (PCR) Not detected Coronavirus 229E (PCR) Not detected Coronavirus NL63 (PCR) Not detected Human Metapneumovir PCR Not detected Influenza Type A (PCR) Not detected Influenza B (RT-PCR) Not detected M. pneumoniae (PCR) Not detected Parainfluenza 1 (PCR) Not detected Parainfluenza 2 (PCR) Not detected Parainfluenza 3 (PCR) Not detected Parainfluenza 4 (PCR) Not detected RSV (PCR) Not detected Entero/Rhino (PCR) Not detected SARS-CoV-2 (PCR) Not detected 07/19/20 07/20/20 07/20/20 23:10 05:10 05:10 WBC 12.05 H RBC 3.25 L Hgb 9.7 L Hct 31.4 L MCV 96.6 MCH 29.8 MCHC 30.9 L RDW Coeff of Lynette 12.1 Plt Count 245 Immature Gran % (Auto) 0.5 Neut % (Auto) 93.5 H Lymph % (Auto) 4.3 L [place] % (Auto) 1.4 Eos % (Auto) 0.1 Baso % (Auto) 0.2 Neut # (Auto) 11.3 H Lymph # (Auto) 0.5 L [place] # (Auto) 0.2 L Eos # (Auto) 0.0 Baso # (Auto) 0.0 Immature Gran # (Auto) 0.1 Puncture Site Lb Base Excess 14.9 H O2 Saturation 97.7 ABG pH 7.30 L ABG pCO2 84.0 H ABG pO2 108.0 H ABG HCO3 41.3 H ABG Total CO2 43.9 H Bernabe Test + Hemoglobin 1.5 Oxyhemoglobin 94.7 L Carboxyhemoglobin 2.6 H Total Hemoglobin 11.8 O2 Delivery Device Cannula Oxygen Liter Flow 3.00 FiO2 % 32.0 Sodium 127.7 L Potassium 5.67 H Chloride 87.0 L Carbon Dioxide 37.1 H Anion Gap 9.27 BUN 18.5 H Creatinine 0.64 Estimated GFR (MDRD) 91.00 BUN/Creatinine Ratio 28.90 Glucose 144.5 H Calcium 8.64 Magnesium Total Bilirubin 0.35 AST 33.4 ALT 8.5 Alkaline Phosphatase 74.3 Troponin I NT-Pro-B Natriuret Pep Total Protein 6.17 L Albumin 3.68 Globulin 2.49 Albumin/Globulin Ratio 1.47 Adenovirus (PCR) B. pertussis DNA (PCR) B.parapertussis DNA PCR C. pneumoniae DNA (PCR) Coronavirus OC43 (PCR) Coronavirus HKU1 (PCR) Coronavirus 229E (PCR) Coronavirus NL63 (PCR) Human Metapneumovir PCR Influenza Type A (PCR) Influenza B (RT-PCR) M. pneumoniae (PCR) Parainfluenza 1 (PCR) Parainfluenza 2 (PCR) Parainfluenza 3 (PCR) Parainfluenza 4 (PCR) RSV (PCR) Entero/Rhino (PCR) SARS-CoV-2 (PCR) 07/21/20 07/21/20 04:53 04:53 WBC 7.44 RBC 2.91 L Hgb 8.7 L Hct 27.5 L MCV 94.5 MCH 29.9 MCHC 31.6 L RDW Coeff of Lynette 12.0 Plt Count 232 Immature Gran % (Auto) 0.3 Neut % (Auto) 72.7 Lymph % (Auto) 18.0 [place] % (Auto) 8.9 Eos % (Auto) 0.0 Baso % (Auto) 0.1 Neut # (Auto) 5.4 Lymph # (Auto) 1.3 [place] # (Auto) 0.7 Eos # (Auto) 0.0 Baso # (Auto) 0.0 Immature Gran # (Auto) 0.0 Puncture Site Base Excess O2 Saturation ABG pH ABG pCO2 ABG pO2 ABG HCO3 ABG Total CO2 Bernabe Test Hemoglobin Oxyhemoglobin Carboxyhemoglobin Total Hemoglobin O2 Delivery Device Oxygen Liter Flow FiO2 % Sodium 129.6 L Potassium 4.04 Chloride 85.3 L Carbon Dioxide 40.3 H* Anion Gap 8.04 BUN 12.9 Creatinine 0.69 Estimated GFR (MDRD) 83.00 BUN/Creatinine Ratio 18.69 Glucose 109.3 H Calcium 8.75 Magnesium 1.93 Total Bilirubin 0.23 AST 24.6 ALT 7.5 Alkaline Phosphatase 71.3 Troponin I NT-Pro-B Natriuret Pep Total Protein 5.98 L Albumin 3.53 Globulin 2.45 Albumin/Globulin Ratio 1.44 Adenovirus (PCR) B. pertussis DNA (PCR) B.parapertussis DNA PCR C. pneumoniae DNA (PCR) Coronavirus OC43 (PCR) Coronavirus HKU1 (PCR) Coronavirus 229E (PCR) Coronavirus NL63 (PCR) Human Metapneumovir PCR Influenza Type A (PCR) Influenza B (RT-PCR) M. pneumoniae (PCR) Parainfluenza 1 (PCR) Parainfluenza 2 (PCR) Parainfluenza 3 (PCR) Parainfluenza 4 (PCR) RSV (PCR) Entero/Rhino (PCR) SARS-CoV-2 (PCR) CXR: Impression: 1. No acute cardiopulmonary process. 2. Chronic obstructive pulmonary disease. 3. Mild cardiomegaly. 4. Hiatal hernia Follow-ups: 1. Dr. Bearden 07/27/20 1400 2. CBC/CMP ordered 07/26/20 Discharge Disposition: Home Hospital Course: 74 yo CF prolonged history of CHF, prolonged tobacco history presented to ED at 2133 on 07/19/[address] Reyna. Daughter was in room, patient within WC. Temp 99.1, pulse 67, rr 19, bp 127/69, pulse ox 93%. SOA present, worse with deep breathing, MAIN and SOA at rest, moderate symptoms. using home medications. Cough and wheezing worsening over last several days. No reported CP, fever, chills, diaphoresis, nasal congestion, dizziness, calf pain, swelling, edema, tachypnea. Reported moderate respiratory distress in ED, no stridor, prolonged expiratory phase. DDX considered pulm edema, COPD exacerbation/bronchitis/bronchospasm. Listed as former smoker, however, she still smokes. PMHX, Fam/Surg/Social history reviewed. EKG compelted in ED normal rate/rhythm, no actopy, NL axis, normal ST segments, no ischemia (not available at time of my review of patient). Time of re-eval 2100 noted patient wanted to go home but daughter insisted she stay. VSS, NAD, rhonchi, SOA. Labs reviewed WBC 8.92, hgb 9.1, plt 226. Sodium 131.3, K+ 5.45, cl 90.8, creatinine 0.85, calcium 8.74, glucose 107.1. AST 29.7, ALT 6.8. Trop negqative. NT BNP 708. BIOFIRE negative for PCR. ABG completed and ph 7.30, pco2 84, po2 108, hco3 41.3, total co2 43.9. Interpreted as chronic compensated respiratory acidsosis. For her to be uncompensated she would need to have lower pH and HCo3 likely <28. Patient was subsequently admitted to me and floor called me this am with orders. She as given levaquin 500 once, she was given solumedrol 40mg IVP once. Duoneb once, admitted to inpatient and w/ telemetry. Patient admitted to [facility] 1. I started rounding at 0700 this am. Labs this am showed increase in WBC from 8.92 to 12.05, hgb upo from 9.1 to 9.7, hct from 30.3 to 31.4, and plt from 226 to 245. She has an increase in neutrophils likely solumedrol effect/demargination. She had repeat CMP this am as well Sodium 127.7 (down from 131.3), K+ 5.67, Cl 87, BUN 18.5, Cr 0.64 and glucose 144.5. Prolonged hyponatremia back to 03/30/20 and then severl years in the past (03/16/18 127.8). Glucose this am was 144.5. Corrected sodium was 128. She is asymptomatic, long standing problem and has no other changes. I do not feel that she would benefit from hypertonic saline at this time. Potassium has been elevated, which should come down with nebs. BNP was mildly elevated at 708. I do not feel that she has much in the level of acute CHF/decompensation at this time. She has not met SIRS criteria, no e/o sepsis. CXR in ED showed no acute cardiopulmonary process, COPD, mild cardiomgaly and hiatal hernia but no fluid consolidation, no e/o pneumonia. At present low suspect for DVT/PE/Pneumonia. I agree COPD exacerbation most likely etiology. Most likely etiologies for infection include H. Influenza, M Catarrhalis, Strep Pneumo and P. [place]. I would like to change from levaquin to Augmentin as per recent gold recommendations and coverage but she is allergic to PCN. We will continue levaquin but use appropriate pulm dose of 750mg daily instead of 500mg daily as she has already had >2 exacerbations in last 12 months. Reviewed the ED note from 06/25/20 visit as well from DR. Rojas. Presented in similar manner SOA, Severe COPD, multiple meds/nebs w/o fever, chills, sweats, n/v/d, chest pain. Cough non prod, no CP, no Urinary s/sx. Labs at that visit WBC 8.13, Hgb 10, plt 237. CMP sodium 130.7, K+ 4.96, BUN 14.6, Cr 0.82, glucose 104.2. BIOFIRE negative. She was given solumedrol in ED, d/c with 4 days of prednisone 40mg, tessalon perrles, doxy 100 BID x 7 days and then f/u with me. She has not had f/u since that time. Discussed case with patient this am. 1 week worsening SOA, MAIN, Orthopnea without PND. Increased work of breathing, increased sputum production, worsening SOA, using nebs more freq. Still smoking 1/2 ppd. HD #2 07/21/20 Vitals reviewed overnight: Temp remains afebrile, pulse 64-75, BP 150/62, 180/79, 175/74, 156/85, RR 18-24 with 18-20 since 21:25 on 07/20/20, maintained O2 96-100 on 3L. Tele monitored and SR with PAC noted throughout the night. No concerning rhythms noted. I+O evaluated. She has had 2+ voids recorded. She is using bedside commode. Reported 2250ml out on 07/20/20. 50% of dinner consumed. Labs this am WBC normal at 7.44. Hgb 8.7 down from 9.7. MCV is normal 94.5. Plt 232. RDW normal. Diff is normal. Chemistry this am. Sodium improved from 127.7 to 129.6. Potassium has normalized likely from albuterol at 4.04. Cl 85.3. CO2 40.3. Creatinine stable 0.69. Glucose 109.3. Mg+++ normal at 1.93. AST 24.6, alt 7.5, alk phos 71.3 and normal. Nursing documentation reviewed overnight. Still w/ exertional SOA noted on CLYDE Siegel note at 1930. Diminished sounds throughout. Exp wheezes noted. Chronic pain mentioned (shoulders 10/12). Limiting to 2L per day. This am 0604 CLYDE siegel. Still left shoulder pain, fall from prior admission and injury. CO2 was noted critical this am. She is not breathing deeply, need to encourage this again. Reviewed patient record and noted lovenox had been left off from yesterday. We will add this agent this am. Patient is just about baseline and could benefit from one more hospital day. I would like to get her involved with pulm rehab, once this fully opens from COVID restrictions. We have stopped her lexapro for concern of SIADH and reduction of sodium. I suspect some polydipsia as well. Chronic pain, on opiates. She is aware of r/b/a to opiate use and will continue to use these. Daugther in room today. We discussed overall care and both patient/daughter feel that they are ready to go home now and that she is bacck to baseline. WE discussed polydipsia. We discussed need to limit intake of fluids, stopped the lexapro. We discussed lovenox, they did not want it this am, I will cancel as plan now is to d/c home. She has reached point of maximal hospital benefit. See me in 1 week and we will address hospital f/u. Day of D/C Exam: REVIEW OF SYMPTOMS: (Positives bolded) General: weight loss, fever, chills, night sweats, fatigue, appetite loss HEENT: blurry vision, eye pain, eye discharge, dry eyes, decreased vision, sore throat, tinnitus, bloody nose, hearing loss, sinus pain/pressure, ear pain/pressure. Respiratory: shortness of breath (chronic), cough, hemoptysis, wheezing, pleur isy, Cardiovascular: chest pain, PND, palpitation, edema, orthopnea, syncope, swelling of extremities Gastro: Nausea, vomiting, diarrhea, hematemesis, abdominal pain, constipation Genito: hematuria, dysuria, glycosuria, hesitancy, frequency, incontinence [place]: Arthralgia, myalgia, back/shoulder pain/muscle weakness, joint swelling, Skin: rash, pruritis, sores, nail changes, skin thickening, change in wart/mole, itching, rash, new lesions, pruritus, nail changes Neuro: Migraine, numbness, ataxia, tremor, vertigo, weakness, memory loss, Irritability, dizziness Endocrine: excessive thirst, polyuria, cold intolerance, heat intolerance, goiter Psychiatric: depression, anxiety, anti-depressants, alcohol abuse, drug abuse, insomnia, change in sleep pattern and mood changes Heme/lymph: easy bruising, bleeding gums, blood clots, swollen glands, lymphedema, Allergic/immune: allergic rhinitis, hay fever, asthma, hives Vital Signs - 24 hr 07/20/20 11:01 07/20/20 14:00 07/20/20 20:00 Temperature 97.6 F Pulse Rate 66 Respiratory Rate 24 Blood Pressure 150/62 H O2 Sat by Pulse Oximetry 98 98 96 07/20/20 21:25 07/20/20 23:08 07/21/20 05:38 Temperature 97.9 F Pulse Rate 64 75 Respiratory Rate 18 20 Blood Pressure 180/79 H 175/74 H O2 Sat by Pulse Oximetry 98 96 07/21/20 05:52 Temperature 97.7 F Pulse Rate 64 Respiratory Rate 18 Blood Pressure 156/85 H O2 Sat by Pulse Oximetry 100 Constitutional: Appearance-Breathing is stable today. +Hirsuitism upper lip, Consistent with stated age. Orientation- Oriented x 3, alert Build and Nutrition-[normal] General- Patient is pleasant and cooperative with the interview and exam. She is a bit more upright, positive, attentive, and interactive. Integumentary: General-No rashes, ulcers or lesions. Palpation- Normal skin moisture/turgor. Skin is warm to touch, appropriate. Capillary refill is normal bilateral Upper and lower extremity. Bruising along anterior chest, right bicep, left bicep down to proximal foream. Posterior lateral scapular border on left. ENMT: Nares- O2 3L via NC in place. bilateral quiet airflow, no discharge. Nasal mucosa- No breakdown.No bleeding noted and no ulcerations observed. [place], moist. Turbinates non boggy. Lips- normal color, moist without cracks/lesions Oral Cavity/Palate- hard/soft palate intact without lesions, oral mucosa pink and moist. Dentures Tongue normal midline. Oropharynx- no pharyngeal erythema, Uvula midline. No post nasal drip. No exudate. Salivary glands- Non tender to palpation CHEST/LUNG: No distress, still w/ abdominal breathing, no other use of accessory muscles. Palpation- nontender sternum, ribline pectoralis region Auscultation- Breath sounds decreased/coarse throughout. Baseline state. Encouraged deeper breathing. Will get incentive spirometer for her. tracheal sounds, bronchial sounds overlying sternum, Bronchovessicular sounds between scapulae posteriorly, vessicular breath sounds heard throughout periphery coarse and still w/ scattered rhonchi. MIld peripheral/lower lobe crackling. Scattered wheezes, Scattered rhonchi. Tolerating O2 NC. CARDIOVASCULAR: Palpation/Percussion- Normal PMI, no palpable thrill Auscultation- Regular rate and rhythm. Distant sounds, III/ murmur left sternal border noted in sitting, supine positions. This does radiate into axilla and carotid region. Extremities- no cyanosis, no edema, clubbing, no increased warmth of extremities ABDOMEN: Inspection- normal and no visible pulsations. Normal contour. Auscultation- Bowel sounds normal, no abdominal bruits. Palpation/Percussion- soft, non-tender, no rebound tenderness, no rigidity (guarding), no jar tenderness, no masses. Liver/spleen no HSM. Peripheral Vascular: Upper extremity Left- Normal temperature with pink nailbeds and no ulcerations. Upper extremity Right- Normal temperature with pink nailbeds and no ulcerations. Lower extremity- Normal temperature with pink nailbeds and no ulcerations. DP pulses 2+ bilaterally. Onychomycosis, nail hypertrophy is present. Pedal hair reduced but intact. Normal capillary refill. Edema- No edema. Musculoskeletal: Generalized-No generalized swelling or edema of extremities, no digital clubbing or cyanosis, neurovascularly intact all four extremities. Upper extremity- No visible deformity. Tender upper trap bilaterally. ?Postural. Normal sensation along medial and lateral upper extremity proximally and distally. NO tenderness overlying shoulder, lateral/medial epicondyle. Precision Filer Hand 5/5 and strength 5/5 bilateral UE. Elbow palpated, no tenderness overlying olecranon. Normal supination, pronation to active/passive ROM and to resisted rotation. Bicep insertion/tricep insertion appear normal without obvious pathology. Normal wrist ROM bilaterally. Normal hand movement, intrinsic muscles of hands normal. No tenderness to palpation of hands/wrists/elbows. Lower extremity- Not tender to palpation, no pain, no swelling, edema or erythema of surrounding tissue, normal strength and tone. Normal appearing hip ROM bilaterally without pain. Knee ROM normal at 0-120 degrees. No tenderness overlying trochanters, no tenderness about patella, quad tendon, patellar tendon. No tenderness at tibial tuberosity. Ankle normal ROM not tender to palpation along medial/lateral malleolus. Normal movement of toes, no tenderness bilateral feet/toes. Spine/Ribs- No deformities, masses or tenderness, no known fractures, normal strength, Normal ROM. Normal stability No tenderness along C/T/L spine. Normal appearing ROM about spine Neurological: General- Moves all 4 extremities, LUE is currently in sling. Symmetrical face and body posture. Cranial nerves- individually evaluated II-XII and intact. PERRLA, Normal EOMI, visual/special senses appear intact, Face is symmetrical and normal sensation/movement, normal tongue, normal strength/posture of neck musculature. Reflexes- intact with DTR 2+ patellar, Achilles, Strength- 5/5 bilateral UE and LE. Soft touch- intact bilateral UE and LE. Temperature sensation- intact bilateral UE and LE. Neuropsych: Oriented- Person, place, time. (AAOx3), GCS 15, Mood/affect- normal and congruent. Pain controlled. She is Able to articulate okay, answers questions appropriately. Speech-Normal speech, normal rate, normal tone, normal use of language, volume and coherence. Thought content- Diminished, could not do basic computations, unable to spell world backwards. Able to apply abstract thought/reason. Associations- questionable, no SI/HI, no hallucinations, delusions, obsessions. Lymphatic: Head/Neck- normal size and non tender to palpation. Axillary- normal size and non tender to palpation. Femoral and Inguinal- normal size and non te nder to palpation. Plan: 1. D/C home today. 2. Oxygen 2-3L 3. Pulse oximetry at home goal 88-98%. 4. Avoid tobacco. 5. Incentive spirometry every 2-4 hours. Deeper breathing. 6. Avoid excessive drinking of liquids. 7. Stop Lexapro. 8. Resume potassium supplementation 07/22/20. 9. CMP on sunday07/26/20. 10. Finish 5 days of antibiotics: Levaquin 750mg PO daily 07/22/20 until finished. 11. Followup with me in clinic 07/27/20 at 1400. 12. Return to ED or call clinic if worsening/changing status. d/c today 33 minutes face to face/floor/review tele, d/w nursing, d/w daughter, d/w patient, d/w case management, time not including documentation.
[2020-07-21] MEDS: LOVENOX SUBCUT SCH (09:27)
== END 2020-07-21 10:30 | disposition home or self-care (01) ==
LOC: ED 21:09 → INTOOBSV 07-20 00:30 → MEDSURG A 07-20 00:30
PROVIDERS: ADMIT Family Medicine; ATTEND Family Medicine
DX: Z20.822 Contact with and (suspected) exposure to COVID-19; I10 Essential (primary) hypertension; R06.02 Shortness of breath; Z99.81 Dependence on supplemental oxygen; F32.9 Major depressive disorder, single episode, unspecified; F11.90 Opioid use, unspecified, uncomplicated; E87.5 Hyperkalemia; E87.1 Hypo-osmolality and hyponatremia; E87.2 Acidosis; F17.210 Nicotine dependence, cigarettes, uncomplicated; R05 Cough; M54.5 Low back pain

== ENCOUNTER 2020-08-27 16:48 | Observation (INO) ==
[2020-08-27] MEDS ORDERED: TYLENOL PO ONE (17:30)
[2020-08-27] MEDS ORDERED: MOTRIN PO ONE (17:30)
[2020-08-27] MEDS ORDERED: SODIUM CHLORIDE 1,000 ML IV STA ×2 (17:30→21:26)
[2020-08-27] MEDS ORDERED: MORPHINE 2 MG/ML SYRINGE IVP ONE ×2 (17:30→21:15)
[2020-08-27] MEDS ORDERED: PROTONIX IV IVP ONE (17:30)
[2020-08-27] MEDS ORDERED: ZOFRAN 4 MG/2 ML IVP ONE ×2 (17:30→21:15)
[2020-08-27] MEDS ORDERED: ROCEPHIN 1 GM/50 ML D5W 1 GM/50 ML BAG IV ONE (17:51)
[2020-08-27 17:57] LABS: BASOPHILS # (AUTO) 0.1 K/uL (0-0.2); BASOPHILS % (AUTO) 0.3 % (0.0-3.0); EOSINOPHILS # (AUTO) 0.1 K/ul (0.0-0.7); EOSINOPHILS % (AUTO) 0.6 % (0.0-7.0); HEMATOCRIT 34.1 % (37.0-47.0); HEMOGLOBIN 11.1 g/dl (12.0-16.0); IMMATURE GRANULOCYTE # (AUTO) 0.2 (0.0-1.0); IMMATURE GRANULOCYTE % (AUTO) 0.9 % (0.0-5.0); LYMPHOCYTES # (AUTO) 1.1 K/uL (0.60-3.4); MEAN CORPUSCULAR HEMOGLOBIN 29.7 pg (27.0-31.0); MEAN CORPUSCULAR HGB CONC 32.6 (31.8-35.4); MEAN CORPUSCULAR VOLUME 91.2 fl (81.0-99.0); MONOCYTES # (AUTO) 1.5 K/uL (0.4-2.0); MONOCYTES % (AUTO) 7.2 (0-10); NEUTROPHILS # (AUTO) 18.5 K/ul (2.0-6.9); PLATELET COUNT 225 10^3/uL (140-440); RDW COEFFICIENT OF VARIATION 13.2 % (11.6-14.8); RED BLOOD COUNT 3.74 10^6/ul (4.20-5.40); WHITE BLOOD COUNT 21.51 K/ul (4.6-10.2)
[2020-08-27 18:09] LABS: ALANINE AMINOTRANSFERASE 8.7 U/L (0-35); ALBUMIN 4.28 g/dL (3.5-5.0); ALKALINE PHOSPHATASE 101.1 U/L (53-141); ASPARTATE AMINO TRANSFERASE 27.4 U/L (14-36); BILIRUBIN,TOTAL 0.54 mg/dL (0.2-1.3); CALCIUM 8.78 mg/dL (8.4-10.2); CARBON DIOXIDE 35.1 mmol/L (22-30.0); CHLORIDE 96.3 mmol/L (98-107); CREATININE 1.11 mg/dL (0.60-1.30); GLUCOSE 127.9 mg/dL (74-106); LIPASE 15.6 U/L (23-300); POTASSIUM 4.97 mmol/L (3.5-5.1); SODIUM 135.3 mmol/L (134.5-145); TOTAL PROTEIN 7.27 g/dL (6.3-8.2)
[2020-08-27 19:09] LABS: BILIRUBIN,URINE Negative (NEGATIVE); CLARITY,URINE Clear (CLEAR); COLOR,URINE Yellow (YELLOW); GLUCOSE, URINE (UA) Negative (NEGATIVE); KETONES,URINE Negative (NEGATIVE); LEUKOCYTE ESTERASE ,URINE 2+ (NEGATIVE); NITRITE,URINE Negative (NEGATIVE); PROTEIN,URINE Negative (NEGATIVE); URINE, BLOOD Trace-lysed (NEGATIVE)
[2020-08-27 19:13] LABS: BACTERIA,URINE TRACE (NOT PRESENT); URINE RBC, MICROSCOPIC 0-2 (0-2)
--- NOTE | 2020-08-27 20:00 | CT ---
EXAM: CT scan of the abdomen and pelvis with contrast HISTORY: Abdominal pain TECHNIQUE: Helical imaging of the abdomen pelvis was performed following the intravenous administrat ion of contrast. 3 mm thin axial images and coronal and sagittal reconstructions were provided for i nterpretation. Comparison 09/10/2018. FINDINGS: No acute abnormalities are seen within the liver, spleen, kidneys. The proximal ureters a re normal size. There has been previous cholecystectomy. There is mild increasing dilatation of the common bile duct. There is mild dilatation of the intrahepatic biliary tree seen on axial image num [id number]. The proximal common bile duct measures approximately 14 mm diameter. The small and large debbie wel loops are normal caliber. The appendix was not seen. The previously noted cystic lesions seen a long the pancreas have resolved. There is no free fluid seen within the pelvis. There has been previous hysterectomy. Lung bases are clear. No lytic or blastic lesions are seen within the osseous structures. IMPRESSION: Postoperative changes of cholecystectomy are again seen. There is increasing dilatation of the common bile duct. The etiology is unclear. MRCP can be obtain ed for further evaluation if clinically indicated. There is no bowel obstruction. All CT scans are performed using dose optimization techniques as appropriate to the performed exam an d include at least one of the following: Automated exposure control, adjustment of the mA and/or kV according t o size, and the use of iterative reconstruction technique.
[2020-08-27 20:55] LABS: BORDETELLA PARAPERTUSSIS (PCR) NOT DETECTED (NOT DETECT); BORDETELLA PERTUSSIS (PCR) NOT DETECTED (NOT DETECT); CHLAMYDIA PNEUMONIAE (PCR) NOT DETECTED (NOT DETECT); CORONAVIRUS 229E (PCR) NOT DETECTED (NOT DETECT); CORONAVIRUS HKU1 (PCR) NOT DETECTED (NOT DETECT); CORONAVIRUS NL63 (PCR) NOT DETECTED (NOT DETECT); CORONAVIRUS OC43 (PCR) NOT DETECTED (NOT DETECT); HUMAN METAPNEUMOVIRUS (PCR) NOT DETECTED (NOT DETECT); HUMAN RHINOVIRUS/ENTEROV (PCR) NOT DETECTED (NOT DETECT); INFLUENZA B (PCR) NOT DETECTED (NOT DETECT); MYCOPLASMA PNEUMONIAE (PCR) NOT DETECTED (NOT DETECT); PARAINFLUENZA VIRUS 1 (PCR) NOT DETECTED (NOT DETECT); PARAINFLUENZA VIRUS 2 (PCR) NOT DETECTED (NOT DETECT); PARAINFLUENZA VIRUS 3 (PCR) NOT DETECTED (NOT DETECT); PARAINFLUENZA VIRUS 4 (PCR) NOT DETECTED (NOT DETECT); RESPIRATORY SYNCYTIAL V (PCR) NOT DETECTED (NOT DETECT); SARS_COV_2 (PCR) NOT DETECTED (NOT DETECT)
--- NOTE | 2020-08-27 20:56 | DI ---
EXAM: One-view chest HISTORY: Shortness of breath TECHNIQUE: Single frontal view the chest was obtained. Comparison 07/19/2020. FINDINGS: The heart is stable size. Lungs are clear. The pulmonary vasculature appears normal. Th ere is stable appearance of the left shoulder arthroplasty. IMPRESSION: No active cardiopulmonary disease. No change when compared to previous study.
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
[2020-08-27] MEDS ORDERED: MORPHINE 2 MG/ML SYRINGE IVP SCH (21:30)
[2020-08-27] MEDS ORDERED: ZOFRAN 4 MG/2 ML IVP SCH (21:30)
[2020-08-27] MEDS ORDERED: TESSALON PERLES PO PRN (21:33)
[2020-08-27] MEDS ORDERED: VENTOLIN HFA (PER PUFF-WITH SPACER) IH PRN (21:33)
[2020-08-27 21:43] LABS: ADENOVIRUS (PCR) NOT DETECTED (NOT DETECT)
[2020-08-27 23:09] VITALS: BMI 24.5
[2020-08-27] MEDS ORDERED: MORPHINE 2 MG/ML SYRINGE IVP PRN (23:29)
[2020-08-27] MEDS ORDERED: ZOFRAN 4 MG/2 ML IVP PRN (23:30)
[2020-08-28 05:13] LABS: BASOPHILS # (AUTO) 0.1 K/uL (0-0.2); BASOPHILS % (AUTO) 0.3 % (0.0-3.0); EOSINOPHILS # (AUTO) 0.3 K/ul (0.0-0.7); EOSINOPHILS % (AUTO) 1.1 % (0.0-7.0); HEMATOCRIT 30.7 % (37.0-47.0); HEMOGLOBIN 9.6 g/dl (12.0-16.0); IMMATURE GRANULOCYTE # (AUTO) 0.3 (0.0-1.0); IMMATURE GRANULOCYTE % (AUTO) 1.2 % (0.0-5.0); LYMPHOCYTES # (AUTO) 1.5 K/uL (0.60-3.4); LYMPHOCYTES % (AUTO) 6.2 (10.0-50.0); MEAN CORPUSCULAR HEMOGLOBIN 29.3 pg (27.0-31.0); MEAN CORPUSCULAR HGB CONC 31.3 (31.8-35.4); MEAN CORPUSCULAR VOLUME 93.6 fl (81.0-99.0); MONOCYTES % (AUTO) 8.4 (0-10); NEUTROPHILS # (AUTO) 19.4 K/ul (2.0-6.9); NEUTROPHILS % (AUTO) 82.8 % (42.2-75.2); PLATELET COUNT 214 10^3/uL (140-440); RDW COEFFICIENT OF VARIATION 13.2 % (11.6-14.8); RED BLOOD COUNT 3.28 10^6/ul (4.20-5.40); WHITE BLOOD COUNT 23.41 K/ul (4.6-10.2)
[2020-08-28 05:25] LABS: ALANINE AMINOTRANSFERASE 7.3 U/L (0-35); ALBUMIN 3.65 g/dL (3.5-5.0); ALKALINE PHOSPHATASE 90.2 U/L (53-141); ASPARTATE AMINO TRANSFERASE 25.1 U/L (14-36); BILIRUBIN,TOTAL 0.35 mg/dL (0.2-1.3); BLOOD UREA NITROGEN 17.5 mg/dL (7-17); CALCIUM 8.41 mg/dL (8.4-10.2); CARBON DIOXIDE 34.7 mmol/L (22-30.0); CHLORIDE 99.4 mmol/L (98-107); CREATININE 1.15 mg/dL (0.60-1.30); GLUCOSE 108.5 mg/dL (74-106); POTASSIUM 4.39 mmol/L (3.5-5.1); SODIUM 137.5 mmol/L (134.5-145); TOTAL PROTEIN 6.37 g/dL (6.3-8.2)
[2020-08-28] MEDS ORDERED: SPIRIVA IH SCH (09:00)
[2020-08-28] MEDS: ROCEPHIN 1 GM/50 ML D5W 1 GM/50 ML BAG IV SCH (09:33)
[2020-08-28] MEDS: SINGULAIR PO SCH (09:34)
[2020-08-28] MEDS: MAG-OX PO SCH (09:34)
[2020-08-28] MEDS: COZAAR PO SCH (09:34)
[2020-08-28] MEDS: COREG PO SCH ×2 (09:35→17:48)
[2020-08-28] MEDS: REQUIP PO SCH (09:35)
[2020-08-28] MEDS: NEURONTIN PO SCH ×2 (09:35→20:05)
[2020-08-28] MEDS: K-DUR PO SCH (09:35)
[2020-08-28] MEDS: ASPIRIN EC PO SCH (09:35)
[2020-08-28] MEDS: PROTONIX IV IVP SCH (09:56)
[2020-08-28] MEDS ORDERED: ATROPINE SULFATE PFS IVP PRN (11:30)
[2020-08-28] MEDS ORDERED: NITROSTAT SL PRN (11:30)
[2020-08-29 05:18] LABS: BASOPHILS # (AUTO) 0.1 K/uL (0-0.2); BASOPHILS % (AUTO) 0.3 % (0.0-3.0); EOSINOPHILS # (AUTO) 0.6 K/ul (0.0-0.7); EOSINOPHILS % (AUTO) 3.7 % (0.0-7.0); HEMATOCRIT 32.6 % (37.0-47.0); HEMOGLOBIN 10.1 g/dl (12.0-16.0); IMMATURE GRANULOCYTE # (AUTO) 0.1 (0.0-1.0); IMMATURE GRANULOCYTE % (AUTO) 0.8 % (0.0-5.0); LYMPHOCYTES # (AUTO) 1.9 K/uL (0.60-3.4); LYMPHOCYTES % (AUTO) 12.4 (10.0-50.0); MEAN CORPUSCULAR VOLUME 93.7 fl (81.0-99.0); MONOCYTES # (AUTO) 1.2 K/uL (0.4-2.0); MONOCYTES % (AUTO) 7.6 (0-10); NEUTROPHILS # (AUTO) 11.3 K/ul (2.0-6.9); NEUTROPHILS % (AUTO) 75.2 % (42.2-75.2); PLATELET COUNT 226 10^3/uL (140-440); RDW COEFFICIENT OF VARIATION 13.2 % (11.6-14.8); RED BLOOD COUNT 3.48 10^6/ul (4.20-5.40); WHITE BLOOD COUNT 15.04 K/ul (4.6-10.2)
[2020-08-29 05:27] VITALS: BP 131/68
[2020-08-29 05:31] LABS: ALANINE AMINOTRANSFERASE 8.3 U/L (0-35); ALBUMIN 3.69 g/dL (3.5-5.0); ALKALINE PHOSPHATASE 89.6 U/L (53-141); ASPARTATE AMINO TRANSFERASE 23.6 U/L (14-36); BILIRUBIN,TOTAL 0.27 mg/dL (0.2-1.3); BLOOD UREA NITROGEN 19.4 mg/dL (7-17); CALCIUM 8.95 mg/dL (8.4-10.2); CARBON DIOXIDE 35.3 mmol/L (22-30.0); CHLORIDE 99.6 mmol/L (98-107); CREATININE 1.03 mg/dL (0.60-1.30); POTASSIUM 4.88 mmol/L (3.5-5.1); SODIUM 137.7 mmol/L (134.5-145); TOTAL PROTEIN 6.52 g/dL (6.3-8.2)
[2020-08-29] MEDS: COZAAR PO SCH (08:54)
[2020-08-29] MEDS: SINGULAIR PO SCH (08:54)
[2020-08-29] MEDS: K-DUR PO SCH (08:54)
[2020-08-29] MEDS: REQUIP PO SCH (08:54)
[2020-08-29] MEDS: NEURONTIN PO SCH (08:54)
[2020-08-29] MEDS: ASPIRIN EC PO SCH (08:54)
[2020-08-29] MEDS: MAG-OX PO SCH (08:55)
[2020-08-29] MEDS: COREG PO SCH (08:55)
--- NOTE | 2020-08-29 11:21 | PCM.PROG ---
Date Seen by Provider: 08/29/20 Time Seen by Provider: 10:45 Subjective: 74 yo CF HD # 3 admitted on 08/27/20 after being seen in office with me. Patient/daughter in room. Patient confused, altered mentation, difficult to arouse, daughter called clinic for concern of worsening heatlh. [place] intermittently x1 week. Reported pain in the mid abdomen starting am of 08/27/20. No report of urinary symptoms of freq/hesitancy, burning, dysuria, hematuria. Last stool 2 days prior to eval on 08/25/20. Patient and daughter noted health was worsening, weak, tired, not acting okay per daughter. She was Confused. Daughter noted difficulty awakening patient that am. In office she was unable to tell me day/date/time. She knew name, my name and city/hospital. She was SOA, Had MAIN, was coughing, shallow inspiration. Appeared ill, accessory muscle use. She was not acting normally. no obvious focal neuro deficit, generalized weakness, worse in LE. Reported SOA, MAIN, using O2 at 3L and sats in office were 85% on 3L. She had temp 102.2, BP 152/82. COVID vaccines up to date. No sick contact. I called and talked with Elva in the ER to relay history. She was seen by DR. Fernández on 08/27/20. He noted periumbilical to suprapubic pain abdominal pain. I was concerned for COPD exacerbation, abdominal pain, febrile illness. Concern for pneumonia, concern for diverticular disease, concerned patient needed more advanced imaging/lab evaluation. SOA, MAIN, PND, RR 22-24. ER note 1652, Vitals: temp 101.5, pulse 80, rr 16, bp 135/73, pulse ox 97%. Labs showed CBC WBC 21.51, hgb 11.1, plt 225, hct 34.1. Diff showed 86% neutrophils. No obvious shift on diff. CMP sodium 135.3, K+ 4.97, cl 96.3, bun 18, cr 1.11, gfr 48, glucose 127.9. Lactic acid 0.83. Calcium 8.78. Alk phos 101.1, ast 27.4, alt 8.7. Lipase negative 15.6 UA SG 1.015, glucose neg, blood trace lysed. Bact trace. Respiratory PCR negative. Urine culture sent. Given 1 gram rocephin, tylenol/motrin. Chest xr 1 view ordered, CT abd/pelvis w/ contrast ordered. Dr. Fernández and I discussed and I noted that I would not be in town until am of 08/29/20. He noted hospitalist service would admit and would be happy to check out with me on am of 08/29/20. I discussed my OV with him on 08/27/20, recent hospital admission for COPD/pulmonary purposes, recent abx, and I noted based on current status that patient met SIRS criteria and I was concerned for pulmonary more than urological. He said he would get CT chest and would f/u with patient. He would admit patient and assume care. On rounds this am 08/29/20 there is no provider documentation. Labs on 08/28/20 showed CBC WBC increased from 21.51 to 23.41 and hgb dropped from 11.1 to 9.6. Plt stable 214 (down from 225). Still with prominent neutrophils and a lymphocytopenia. This am 08/29/20 WBC dropped to 15.04. Hgb increased from the 9.6 yesterday to 10.1 to day. Plt 226 and stable. Differential normal today w/ mild neut# elevation. No ABG has been done this hospital stay. Review of chemistry panel shows minimal changes. Sodium stable 08/28 at 137.5, K+ 4.39, Cl 99.4, bun 17.5, cr 1.15 glu 108.5, ast 25.1, alt 7.3. Remainder of CMP WNL. This am sodium 137.7, K+ 4.88, cl 99.6, BUN 19.4, cr 1.03. Glucose 139. Calcium stable 8.95. remainder of CMP WNL. I reviewed labs within diagnostic section of EMR. Serology negative for viral PCR as noted above. CT abd/pelvis: Postoperative changes of cholecystectomy are again seen. There is increasing dilatation of the common bile duct. The etiology is unclear. MRCP can be obtained for further evaluation if clinically indicated. There is no bowel obstruction. No obvious cause for the pain in lower abdomen, no obvious cause for the fever/illness either. CXR no active Cardiopulm disease. NO changes from previous. Chronic process, clear lungs reported. Vitals last 24 hours showed afebrile status. No fever since 08/27/20 at 1709. Pulse 67-88 throughout stay. BP has been 152/82, 135/73, 114/80, 126/66, 117/50, 137/66, 109/53, 121/58, 126/68, 131/68 throughout stay. o2 saturation 92-99% on 3L. Was 85% in clinic on 08/27/20. rr 16-24. Telemetry throughout the stay reviewed. The patient has been SR throughout the stay with a few PACS and occasional Sinus arrhythmia. Voids #5/ on 08/28/20 and #1 today already. Not monitoring for strict I+O. Orders reviewed: BC pending. Brandon montez. home meds reviewed. Reviewed obs narravatives from today. 0300 resting quietly no s/sx of pain or abnl findings. 0400 IV left AC, tele in place, resting 3L O2. 0500 unchanged. 0600 resting watching TV comfortably. 0700 Patient resting in bed IV in place tele 74BPM. 0800 up to bathroom, 2L NC. Minimal assist. TLM on and running SR. Reviewed obs from yesterday. Noted pain in ribs, morphine was ordered. 183 note patient ready for d/c wants to go home. Discussed case with Radha Daughter and both she and patient feel ready to discharge. Objective: Vitals: T=97.9 F, P=70, R=16, LF=917/68, SPO2=94 HEENT: [] Neck: [] Lungs: [] CVS: [] Abdomen: [] Extremities: [] Neurological: [] Skin: [] Lab/Tests/Diagnostic Imaging: []
[2020-08-29 12:05] VITALS: TEMP 98.6
--- NOTE | 2020-08-29 12:12 | PCM.DC ---
Final Diagnosis: 1. Febrile illness w/ respiratory distress 2. SIRS 3. Abdominal Pain Suprapubic with mildly Abnormal Urine 4. Chronic COPD 5. Chronic tobacco use 6. Chronic opiate use 7. Dilated common bile duct, needs MRCP and outpatient GI evaluation. Reason for Hospitalization: Febrile illness w/ respiratory distress, SIRS+, Abnormal urine, abdominal pain. Prognosis at Discharge: Back to baseline. Prognosis guarded. DNR status, advanced COPD continued tobacco use. Dementia worsening with time. Condition at Discharge: Back to baseline. Prognosis guarded. DNR status, advanced COPD continued tobacco use. Dementia worsening with time. CBC improving, CMP stable. CXR negative. Needs to have outpatient f/u with GI for evaluation for MRCP due to abnormal imaging finding on CT abd/pelvis. Medications at Discharge: Ambulatory Orders Medication Instructions Recorded aspirin 81 mg tablet,delayed 81 mg PO DAILY 90 Days #90 tab-cap 04/30/19 release fluticasone propionate 50 2 spray INTRANASAL DAILY 30 Days 04/30/19 mcg/actuation nasal #1 inha spray,suspension albuterol sulfate 90 mcg/actuation 2 puff IH .q 4 hour PRN #18 gm 02/03/20 aerosol inhaler magnesium oxide 400 mg (241.3 mg 400 mg PO DAILY 90 Days #90 tab 02/04/20 magnesium) tablet prasugrel 10 mg tablet 10 mg PO DAILY 30 Days #30 tab-cap 04/27/20 tiotropium bromide 18 mcg capsule See Rx Instructions .ROUTE 05/03/20 with inhalation device .COMPLEX #30 inh budesonide 0.5 mg/2 mL suspension 0.5 mg INHALATION BID #60 ml 05/24/20 for nebulization benzonatate [Tessalon Perles] 200 mg PO TID PRN #30 cap 06/25/20 losartan 50 mg tablet 75 mg PO QDAY #45 tab 06/30/20 pantoprazole 40 mg tablet,delayed 40 mg PO BID #60 tab-cap 06/30/20 release oxycodone-acetaminophen 7.5 mg-325 0.5 tab PO QID PRN #60 tab 07/01/20 mg tablet montelukast 10 mg tablet 10 mg PO DAILY 30 Days #30 tab-cap 07/13/20 ropinirole 1 mg tablet 1 mg PO DAILY #30 tab-cap 07/13/20 carvedilol 6.25 mg tablet 6.25 mg PO BIDWM 30 Days #60 tab 07/20/20 gabapentin 600 mg tablet 600 mg PO BID 90 Days #180 tab-cap 07/20/20 albuterol sulfate 2.5 mg INHALATION Q6H #180 ml 07/21/20 potassium chloride 20 mEq 20 meq PO DAILY #30 tab 08/18/20 tablet,extended release(part/cryst) levofloxacin 750 mg PO DAILY 5 Days #5 tab 08/29/20 Lab/Diagnostics: Laboratory Last Values WBC 15.04 K/ul (4.6-10.2) H D 08/29/20 04:50 RBC 3.48 10^6/ul (4.20-5.40) L 08/29/20 04:50 Hgb 10.1 g/dl (12.0-16.0) L 08/29/20 04:50 Hct 32.6 % (37.0-47.0) L 08/29/20 04:50 MCV 93.7 fl (81.0-99.0) 08/29/20 04:50 MCH 29.0 pg (27.0-31.0) 08/29/20 04:50 MCHC 31.0 (31.8-35.4) L 08/29/20 04:50 RDW Coeff of Lynette 13.2 % (11.6-14.8) 08/29/20 04:50 Plt Count 226 10^3/uL (140-440) 08/29/20 04:50 Immature Gran % (Auto) 0.8 % (0.0-5.0) 08/29/20 04:50 Neut % (Auto) 75.2 % (42.2-75.2) 08/29/20 04:50 Lymph % (Auto) 12.4 (10.0-50.0) 08/29/20 04:50 Emery % (Auto) 7.6 (0-10) 08/29/20 04:50 Eos % (Auto) 3.7 % (0.0-7.0) 08/29/20 04:50 Baso % (Auto) 0.3 % (0.0-3.0) 08/29/20 04:50 Neut # (Auto) 11.3 K/ul (2.0-6.9) H 08/29/20 04:50 Lymph # (Auto) 1.9 K/uL (0.60-3.4) 08/29/20 04:50 Emery # (Auto) 1.2 K/uL (0.4-2.0) 08/29/20 04:50 Eos # (Auto) 0.6 K/ul (0.0-0.7) 08/29/20 04:50 Baso # (Auto) 0.1 K/uL (0-0.2) 08/29/20 04:50 Immature Gran # (Auto) 0.1 (0.0-1.0) 08/29/20 04:50 Sodium 137.7 mmol/L (134.5-145) 08/29/20 04:50 Potassium 4.88 mmol/L (3.5-5.1) 08/29/20 04:50 Chloride 99.6 mmol/L (98-107) 08/29/20 04:50 Carbon Dioxide 35.3 mmol/L (22-30.0) H 08/29/20 04:50 Anion Gap 7.68 08/29/20 04:50 BUN 19.4 mg/dL (7-17) H 08/29/20 04:50 Creatinine 1.03 mg/dL (0.60-1.30) 08/29/20 04:50 Estimated GFR (MDRD) 53.00 mL/min 08/29/20 04:50 BUN/Creatinine Ratio 18.83 08/29/20 04:50 Glucose 139.0 mg/dL (74-106) H 08/29/20 04:50 Lactic Acid 0.83 mmol/L (0.7-2.1) 08/27/20 17:51 Calcium 8.95 mg/dL (8.4-10.2) 08/29/20 04:50 Total Bilirubin 0.27 mg/dL (0.2-1.3) 08/29/20 04:50 AST 23.6 U/L (14-36) 08/29/20 04:50 ALT 8.3 U/L (0-35) 08/29/20 04:50 Alkaline Phosphatase 89.6 U/L (53-141) 08/29/20 04:50 Total Protein 6.52 g/dL (6.3-8.2) 08/29/20 04:50 Albumin 3.69 g/dL (3.5-5.0) 08/29/20 04:50 Globulin 2.83 08/29/20 04:50 Albumin/Globulin Ratio 1.30 08/29/20 04:50 Lipase 15.6 U/L (23-300) L 08/27/20 17:51 Urine Color Yellow (YELLOW) 08/27/20 19:04 Urine Clarity Clear (CLEAR) 08/27/20 19:04 Urine pH 7.0 (5-9) 08/27/20 19:04 Ur Specific [place] 1.015 (1.005-1.030) 08/27/20 19:04 Urine Protein Negative (NEGATIVE) 08/27/20 19:04 Urine Glucose (UA) Negative (NEGATIVE) 08/27/20 19:04 Urine Ketones Negative (NEGATIVE) 08/27/20 19:04 Urine Blood Trace-lysed (NEGATIVE) 08/27/20 19:04 Urine Nitrite Negative (NEGATIVE) 08/27/20 19:04 Urine Bilirubin Negative (NEGATIVE) 08/27/20 19:04 Urine Urobilinogen 1.0 (0.2) H 08/27/20 19:04 Ur Leukocyte Esterase 2+ (NEGATIVE) H 08/27/20 19:04 Urine Microscopic RBC 0-2 (0-2) 08/27/20 19:04 Urine Microscopic WBC 5-10 (0-2) 08/27/20 19:04 Ur Squamous Epith Cells 2-5 (0-5) 08/27/20 19:04 Urine Bacteria Trace (NOT PRESENT) 08/27/20 19:04 Adenovirus (PCR) Not detected (NOT DETECT) 08/27/20 20:50 B. pertussis DNA (PCR) Not detected (NOT DETECT) 08/27/20 20:50 B.parapertussis DNA PCR Not detected (NOT DETECT) 08/27/20 20:50 C. pneumoniae DNA (PCR) Not detected (NOT DETECT) 08/27/20 20:50 Coronavirus OC43 (PCR) Not detected (NOT DETECT) 08/27/20 20:50 Coronavirus HKU1 (PCR) Not detected (NOT DETECT) 08/27/20 20:50 Coronavirus 229E (PCR) Not detected (NOT DETECT) 08/27/20 20:50 Coronavirus NL63 (PCR) Not detected (NOT DETECT) 08/27/20 20:50 Human Metapneumovir PCR Not detected (NOT DETECT) 08/27/20 20:50 Influenza Type A (PCR) Not detected (NOT DETECT) 08/27/20 20:50 Influenza B (RT-PCR) Not detected (NOT DETECT) 08/27/20 20:50 M. pneumoniae (PCR) Not detected (NOT DETECT) 08/27/20 20:50 Parainfluenza 1 (PCR) Not detected (NOT DETECT) 08/27/20 20:50 Parainfluenza 2 (PCR) Not detected (NOT DETECT) 08/27/20 20:50 Parainfluenza 3 (PCR) Not detected (NOT DETECT) 08/27/20 20:50 Parainfluenza 4 (PCR) Not detected (NOT DETECT) 08/27/20 20:50 RSV (PCR) Not detected (NOT DETECT) 08/27/20 20:50 Entero/Rhino (PCR) Not detected (NOT DETECT) 08/27/20 20:50 SARS-CoV-2 (PCR) Not detected (NOT DETECT) 08/27/20 20:50 Education Provided to Patient and Family: 1. COPD 2. Inhaler medications 3. Avoidance of tobacco. 4. Opiate safety 5. When to f/u in clinic, when to go to ER. S/sx of worsening d/w patient/family. Follow-ups: Sunday09/03/20 GABE Adrian for Hospital f/u. Needs outpatient evaluation with GI for MRCP. I have placed order. Discharge Disposition: Home Hospital Course: 74 yo CF HD # 3 admitted on 08/27/20 after being seen in office with me. Patient/daughter in room. Patient confused, altered mentation, difficult to arouse, daughter called clinic for concern of worsening heatlh. [place] intermittently x1 week. Reported pain in the mid abdomen starting am of 08/27/20. No report of urinary symptoms of freq/hesitancy, burning, dysuria, hematuria. Last stool 2 days prior to eval on 08/25/20. Patient and daughter noted health was worsening, weak, tired, not acting okay per daughter. She was Confused. Daughter noted difficulty awakening patient that am. In office she was unable to tell me day/date/time. She knew name, my name and city/hospital. She was SOA, Had MAIN, was coughing, shallow inspiration. Appeared ill, accessory muscle use. She was not acting normally. no obvious focal neuro deficit, generalized weakness, worse in LE. Reported SOA, MAIN, using O2 at 3L and sats in office were 85% on 3L. She had temp 102.2, BP 152/82. COVID vaccines up to date. No sick contact. I called and talked with Elva in the ER to relay history. She was seen by DR. Fernández on 08/27/20. He noted periumbilical to suprapubic pain abdominal pain. I was concerned for COPD exacerbation, abdominal pain, febrile illness. Concern for pneumonia, concern for diverticular disease, concerned patient needed more advanced imaging/lab evaluation. SOA, MAIN, PND, RR 22-24. ER note 1652, Vitals: temp 101.5, pulse 80, rr 16, bp 135/73, pulse ox 97%. Labs showed CBC WBC 21.51, hgb 11.1, plt 225, hct 34.1. Diff showed 86% neutrophils. No obvious shift on diff. CMP sodium 135.3, K+ 4.97, cl 96.3, bun 18, cr 1.11, gfr 48, glucose 127.9. Lactic acid 0.83. Calcium 8.78. Alk phos 101.1, ast 27.4, alt 8.7. Lipase negative 15.6 UA SG 1.015, glucose neg, blood trace lysed. Bact trace. Respiratory PCR negative. Urine culture sent. Given 1 gram rocephin, tylenol/motrin. Chest xr 1 view ordered, CT abd/pelvis w/ contrast ordered. Dr. Fernández and I discussed and I noted that I would not be in town until am of 08/29/20. He noted hospitalist service would admit and would be happy to check out with me on am of 08/29/20. I discussed my OV with him on 08/27/20, recent hospital admission for COPD/pulmonary purposes, recent abx, and I noted based on current status that patient met SIRS criteria and I was concerned for pulmonary more than urological. He said he would get CT chest and would f/u with patient. He would admit patient and assume care. On rounds this am 08/29/20 there is no provider documentation. Labs on 08/28/20 showed CBC WBC increased from 21.51 to 23.41 and hgb dropped from 11.1 to 9.6. Plt stable 214 (down from 225). Still with prominent neutrophils and a lymphocytopenia. This am 08/29/20 WBC dropped to 15.04. Hgb increased from the 9.6 yesterday to 10.1 to day. Plt 226 and stable. Differential normal today w/ mild neut# elevation. No ABG has been done this hospital stay. Review of chemistry panel shows minimal changes. Sodium stable 08/28 at 137.5, K+ 4.39, Cl 99.4, bun 17.5, cr 1.15 glu 108.5, ast 25.1, alt 7.3. Remainder of CMP WNL. This am sodium 137.7, K+ 4.88, cl 99.6, BUN 19.4, cr 1.03. Glucose 139. Calcium stable 8.95. remainder of CMP WNL. I reviewed labs within diagnostic section of EMR. Serology negative for viral PCR as noted above. CT abd/pelvis: Postoperative changes of cholecystectomy are again seen. There is increasing dilatation of the common bile duct. The etiology is unclear. MRCP can be obtained for further evaluation if clinically indicated. There is no bowel obstruction. No obvious cause for the pain in lower abdomen, no obvious cause for the fever/illness either. CXR no active Cardiopulm disease. NO changes from previous. Chronic process, clear lungs reported. Vitals last 24 hours showed afebrile status. No fever since 08/27/20 at 1709. Pulse 67-88 throughout stay. BP has been 152/82, 135/73, 114/80, 126/66, 117/50, 137/66, 109/53, 121/58, 126/68, 131/68 throughout stay. o2 saturation 92-99% on 3L. Was 85% in clinic on 08/27/20. rr 16-24. Telemetry throughout the stay reviewed. The patient has been SR throughout the stay with a few PACS and occasional Sinus arrhythmia. Voids #5/ on 08/28/20 and #1 today already. Not monitoring for strict I+O. Orders reviewed: BC pending. Rocephin 1gram dailiy. home meds reviewed. Reviewed obs narravatives from today. 0300 resting quietly no s/sx of pain or abnl findings. 0400 IV left AC, tele in place, resting 3L O2. 0500 unchanged. 0600 resting watching TV comfortably. 0700 Patient resting in bed IV in place tele 74BPM. 0800 up to bathroom, 2L NC. Minimal assist. TLM on and running SR. Reviewed obs from yesterday. Noted pain in ribs, morphine was ordered. 183 note patient ready for d/c wants to go home. Discussed case with Radha Daughter and both she and patient feel ready to discharge. CBC WBC 15.04 K/ul (4.6-10.2) H D 08/29/20 04:50 Hgb 10.1 g/dl (12.0-16.0) L 08/29/20 04:50 Hct 32.6 % (37.0-47.0) L 08/29/20 04:50 Plt Count 226 10^3/uL (140-440) 08/29/20 04:50 CMP 08/27/20 08/28/20 08/29/20 17:51 04:51 04:50 Sodium 135.3 137.5 137.7 Potassium 4.97 4.39 4.88 Chloride 96.3 L 99.4 99.6 Carbon Dioxide 35.1 H 34.7 H 35.3 H Anion Gap 8.87 7.79 7.68 BUN 18.0 H 17.5 H 19.4 H Creatinine 1.11 1.15 1.03 BUN/Creatinine Ratio 16.21 15.21 18.83 Glucose 127.9 H 108.5 H 139.0 H Calcium 8.78 8.41 8.95 AST 27.4 25.1 23.6 ALT 8.7 7.3 8.3 Total Protein 7.27 6.37 6.52 Albumin 4.28 3.65 3.69 Globulin 2.99 2.72 2.83 REVIEW OF SYMPTOMS: (Positives bolded) General: weight loss, fever, chills, night sweats, fatigue, appetite loss (CHRONIC) HEENT: blurry vision, eye pain, eye discharge, dry eyes, decreased vision, sore throat, tinnitus, bloody nose, hearing loss, sinus pain/pressure, ear pain/pressure. Respiratory: shortness of breath (chronic), cough, hemoptysis, wheezing, pleurisy, Cardiovascular: chest pain, PND, palpitation, edema, orthopnea, syncope, swelling of extremities Gastro: Nausea, vomiting, diarrhea, hematemesis, abdominal pain, constipation Genito: hematuria, dysuria, glycosuria, hesitancy, frequency, incontinence Musckelo: Arthralgia, myalgia, back/shoulder pain/muscle weakness, joint swelling, Skin: rash, pruritis, sores, nail changes, skin thickening, change in wart/mole, itching, rash, new lesions, pruritus, nail changes Neuro: Migraine, numbness, ataxia, tremor, vertigo, weakness, memory loss, Irr itability, dizziness Endocrine: excessive thirst, polyuria, cold intolerance, heat intolerance, goiter Psychiatric: depression, anxiety, anti-depressants, alcohol abuse, drug abuse, insomnia, change in sleep pattern and mood changes Heme/lymph: easy bruising, bleeding gums, blood clots, swollen glands, lymphedema, Allergic/immune: allergic rhinitis, hay fever, asthma, hives Constitutional: Appearance-Breathing is stable today. +Hirsuitism upper lip, Consistent with stated age. Orientation- Oriented x 3, alert Build and Nutrition-[normal] General- Patient is pleasant and cooperative with the interview and exam. She is a bit more upright, positive, attentive, and interactive. Integumentary: General-No rashes, ulcers or lesions. Palpation- Normal skin moisture/turgor. Skin is warm to touch, appropriate. Capillary refill is normal bilateral Upper and lower extremity. Bruising along anterior chest, right bicep, left bicep down to proximal foream. Posterior lateral scapular border on left. ENMT: Nares- O2 3L via NC in place. bilateral quiet airflow, no discharge. Nasal mucosa- No breakdown.No bleeding noted and no ulcerations observed. Rickreall, moist. Turbinates non boggy. Lips- normal color, moist without cracks/lesions Oral Cavity/Palate- hard/soft palate intact without lesions, oral mucosa pink and moist. Dentures Tongue normal midline. Oropharynx- no pharyngeal erythema, Uvula midline. No post nasal drip. No exudate. Salivary glands- Non tender to palpation CHEST/LUNG: No distress, still w/ abdominal breathing, no other use of accessory muscles. Palpation- nontender sternum, ribline pectoralis region Auscultation- Breath sounds decreased/coarse throughout. Baseline state on o2. Encouraged again deeper breathing. Will encourage continued use of incentive spirometer. tracheal sounds, bronchial sounds overlying sternum, Bronchovessicular sounds between scapulae posteriorly, vessicular breath sounds heard throughout periphery coarse and still w/ scattered rhonchi. MIld peripheral/lower lobe crackling. Scattered wheezes, Scattered rhonchi. Tolerating O2 NC. CARDIOVASCULAR: Palpation/Percussion- Normal PMI, no palpable thrill Auscultation- Regular rate and rhythm. Distant sounds, III/ murmur left sternal border noted in sitting, supine positions. This does radiate into axilla and carotid region. Extremities- no cyanosis, no edema, clubbing, no increased warmth of extremities ABDOMEN: Inspection- normal and no visible pulsations. Normal contour. Auscultation- Bowel sounds normal, no abdominal bruits. Palpation/Percussion- soft, non-tender, no rebound tenderness, no rigidity (guarding), no jar tenderness, no masses. Liver/spleen no HSM. No pain on examination today. Peripheral Vascular: Upper extremity Left- Normal temperature with pink nailbeds and no ulcerations. Upper extremity Right- Normal temperature with pink nailbeds and no ulcerations. Lower extremity- Normal temperature with pink nailbeds and no ulcerations. DP pulses 2+ bilaterally. Onychomycosis, nail hypertrophy is present. Pedal hair reduced but intact. Normal capillary refill. Edema- No edema. Musculoskeletal: Generalized-No generalized swelling or edema of extremities, no digital clubbing or cyanosis, neurovascularly intact all four extremities. Upper extremity- No visible deformity. Tender upper trap bilaterally. ?Postural. Normal sensation along medial and lateral upper extremity proximally and distally. NO tenderness overlying shoulder, lateral/medial epicondyle. Squad Leader 5/5 and strength 5/5 bilateral UE. Elbow palpated, no tenderness overlying olecranon. Normal supination, pronation to active/passive ROM and to resisted rotation. Bicep insertion/tricep insertion appear normal without obvious pathology. Normal wrist ROM bilaterally. Normal hand movement, intrinsic muscles of hands normal. No tenderness to palpation of hands/wrists/elbows. Lower extremity- Not tender to palpation, no pain, no swelling, edema or erythema of surrounding tissue, normal strength and tone. Normal appearing hip ROM bilaterally without pain. Knee ROM normal at 0-120 degrees. No tenderness overlying trochanters, no tenderness about patella, quad tendon, patellar tendon. No tenderness at tibial tuberosity. Ankle normal ROM not tender to palpation along medial/lateral malleolus. Normal movement of toes, no tenderness bilateral feet/toes. Spine/Ribs- No deformities, masses or tenderness, no known fractures, normal strength, Normal ROM. Normal stability No tenderness along C/T/L spine. Normal appearing ROM about spine Neurological: General- Moves all 4 extremities, LUE is currently in sling. Symmetrical face and body posture. Cranial nerves- individually evaluated II-XII and intact. PERRLA, Normal EOMI, visual/special senses appear intact, Face is symmetrical and normal sensation/movement, normal tongue, normal strength/posture of neck musculature. Reflexes- intact with DTR 2+ patellar, Achilles, Strength- 5/5 bilateral UE and LE. Soft touch- intact bilateral UE and LE. Temperature sensation- intact bilateral UE and LE. Neuropsych: Oriented- Person, place, time. (AAOx3), GCS 15, Mood/affect- normal and congruent. Pain controlled. She is Able to articulate okay, answers questions appropriately. Speech-Normal speech, normal rate, normal tone, normal use of language, volume and coherence. Thought content- Diminished, could not do basic computations, unable to spell world backwards. Able to apply abstract thought/reason. Associations- questionable, no SI/HI, no hallucinations, delusions, obsessions. Lymphatic: Head/Neck- normal size and non tender to palpation. Axillary- normal size and non tender to palpation. Femoral and Inguinal- normal size and non tender to palpation. Plan: D/C home today oxygen to continue. Pulse ox goal at home 88-98%. Avoid tobacco, work on incentive spirometry at home. 1. Febrile respiratory illness: Unknown etiology, respiratory distress now r esolved. Back to baseline status. 2. Chronic COPD: Still using tobacco. Cessation/avoidance encouraged. Controller meds d/w patient and daughter. 3. Chronic O2. 4. Concern for UTI in ED, Urine culture negative. 5. Will treat with levaquin 750 daily x 5 days to cover pulmonary and urological infections. 6. D/C home today. D/w daughter and patient today. 7. Opiates chronically for pain. D/w patient safe use of opiates. 8. Continue home meds. 9. Continue Home O2 at 2L NC 10. . Opiates/opiate education d/w patient 11. Add on Medication: Levaquin daily x 5 days 750mg daily. Start 08/29/20 12. Follow up lakshmi Adrian on 09/03/20 at 0900 13. Needs outpatient referral to GI. 14. Tobacco avoidance d/w patient Care d/w daughter. Reviewed vitals, afebrile x >24 hours. Discussed care and scar colbert feels she is back to baseline, I feel she is back to baseline. At present uncertain cause for her symptoms. Spent >30 minutes rounding on patient today. Reviewed orders from hospital stay. Patient was covered by hospitalist service from 08/27, 08/28 and I resumed care on 08/29/20. 42 minutes total spent on discharge today. patient maximized from hospital stay, back to baseline. No fever >24 hours. Urine culture negative BC pending. Patient is stable and back to baseline and desires d/c. Patient daughter desires d/c. Unknown etiology for URI, PCR negativve. urine culture negative. I have no other reason to see to keep patient in hospital. Will d/c home at this time with f/u this coming sunday with GABE Adrian as I will be out of town.
[2020-08-29] MEDS: PROTONIX IV IVP SCH (12:21)
[2020-08-29] MEDS: ROCEPHIN 1 GM/50 ML D5W 1 GM/50 ML BAG IV SCH (12:22)
== END 2020-08-29 13:53 | disposition home or self-care (01) ==
LOC: MEDSURG A 16:48 → ED 16:48 → MEDSURG A 22:45
PROVIDERS: ADMIT Emergency Medicine; ATTEND Family Medicine
DX: Z20.822 Contact with and (suspected) exposure to COVID-19; Z72.0 Tobacco use; R50.9 Fever, unspecified; R10.9 Unspecified abdominal pain; N30.00 Acute cystitis without hematuria; N39.0 Urinary tract infection, site not specified; R65.10 Systemic inflammatory response syndrome (SIRS) of non-infectious origin without acute organ dysfunction; J44.9 Chronic obstructive pulmonary disease, unspecified; R06.02 Shortness of breath; R06.03 Acute respiratory distress

== ENCOUNTER 2021-01-09 19:07 | Observation (INO) ==
[2021-01-09] MEDS ORDERED: AZACTAM 1 GM in SODIUM CHLORIDE 50 ML IV STA (19:11)
[2021-01-09] MEDS ORDERED: SODIUM CHLORIDE 1,000 ML IV STA (19:11)
[2021-01-09] MEDS ORDERED: AZACTAM ONE (19:30)
[2021-01-09 20:01] LABS: BORDETELLA PARAPERTUSSIS (PCR) NOT DETECTED (NOT DETECT); BORDETELLA PERTUSSIS (PCR) NOT DETECTED (NOT DETECT); CHLAMYDIA PNEUMONIAE (PCR) NOT DETECTED (NOT DETECT); CORONAVIRUS 229E (PCR) NOT DETECTED (NOT DETECT); CORONAVIRUS HKU1 (PCR) NOT DETECTED (NOT DETECT); CORONAVIRUS NL63 (PCR) NOT DETECTED (NOT DETECT); CORONAVIRUS OC43 (PCR) NOT DETECTED (NOT DETECT); HUMAN METAPNEUMOVIRUS (PCR) NOT DETECTED (NOT DETECT); HUMAN RHINOVIRUS/ENTEROV (PCR) NOT DETECTED (NOT DETECT); INFLUENZA B (PCR) NOT DETECTED (NOT DETECT); MYCOPLASMA PNEUMONIAE (PCR) NOT DETECTED (NOT DETECT); PARAINFLUENZA VIRUS 1 (PCR) NOT DETECTED (NOT DETECT); PARAINFLUENZA VIRUS 2 (PCR) NOT DETECTED (NOT DETECT); PARAINFLUENZA VIRUS 3 (PCR) NOT DETECTED (NOT DETECT); PARAINFLUENZA VIRUS 4 (PCR) NOT DETECTED (NOT DETECT); RESPIRATORY SYNCYTIAL V (PCR) NOT DETECTED (NOT DETECT); SARS_COV_2 (PCR) NOT DETECTED (NOT DETECT)
[2021-01-09 20:02] LABS: CREATINE KINASE 131.6 U/L (30-135)
[2021-01-09 20:04] LABS: ALANINE AMINOTRANSFERASE 7.9 U/L (0-35); ALBUMIN 3.62 g/dL (3.5-5.0); ALKALINE PHOSPHATASE 71.8 U/L (53-141); ASPARTATE AMINO TRANSFERASE 19.8 U/L (14-36); BILIRUBIN,TOTAL 0.42 mg/dL (0.2-1.3); BLOOD UREA NITROGEN 18.7 mg/dL (7-17); CALCIUM 8.67 mg/dL (8.4-10.2); CARBON DIOXIDE 29.2 mmol/L (22-30.0); CHLORIDE 99.5 mmol/L (98-107); CREATININE 1.13 mg/dL (0.60-1.30); GLUCOSE 156.1 mg/dL (74-106); POTASSIUM 4.75 mmol/L (3.5-5.1); SODIUM 133.3 mmol/L (134.5-145); TOTAL PROTEIN 6.08 g/dL (6.3-8.2)
[2021-01-09 20:08] LABS: BASOPHILS % (AUTO) 0.2 % (0.0-3.0); EOSINOPHILS % (AUTO) 0.2 % (0.0-7.0); HEMATOCRIT 30.3 % (37.0-47.0); HEMOGLOBIN 9.4 g/dl (12.0-16.0); IMMATURE GRANULOCYTE # (AUTO) 0.1 (0.0-1.0); IMMATURE GRANULOCYTE % (AUTO) 0.5 % (0.0-5.0); LYMPHOCYTES % (AUTO) 5.8 (10.0-50.0); MEAN CORPUSCULAR HEMOGLOBIN 28.1 pg (27.0-31.0); MEAN CORPUSCULAR VOLUME 90.4 fl (81.0-99.0); MONOCYTES # (AUTO) 1.4 K/uL (0.4-2.0); MONOCYTES % (AUTO) 8.1 (0-10); NEUTROPHILS # (AUTO) 14.7 K/ul (2.0-6.9); NEUTROPHILS % (AUTO) 85.2 % (42.2-75.2); PLATELET COUNT 168 10^3/uL (140-440); RDW COEFFICIENT OF VARIATION 14.4 % (11.6-14.8); RED BLOOD COUNT 3.35 10^6/ul (4.20-5.40); WHITE BLOOD COUNT 17.19 K/ul (4.6-10.2)
--- NOTE | 2021-01-09 20:09 | CT ---
EXAM: CT scan of the head without contrast HISTORY: Encephalopathy TECHNIQUE: Helical imaging of the head was performed without intravenous contrast. 5 mm thin axial images and coronal and sagittal images were obtained. Comparison 02/11/2015. FINDINGS: The hernandez-white interface appears normal. The lateral ventricles and cortical sulci are no rmal. Low density changes are seen within the supratentorial white matter. No acute hemorrhages are seen. There is no mass effect. There are no extraaxial collections. The paranasal sinuses and mas toid air cells are clear. The calvarium appears normal. IMPRESSION: No acute intracranial abnormalities are seen. Stable chronic small vessel ischemic changes seen within the supratentorial white matter. All CT scans are performed using dose optimization techniques as appropriate to the performed exam an d include at least one of the following: Automated exposure control, adjustment of the mA and/or kV according t o size, and the use of iterative reconstruction technique.
[2021-01-09 20:13] LABS: ABG PH 7.37 (7.35-7.45); BEecf 7.7 (-2.0-3.0); HCO3 33 (21-28); MetHb 1.3 (0-1.5); TCO2 34.7 (19-24); sO2 96.1 % (94-98); tHb 9.9 g/dl (11.7-17.4)
[2021-01-09 20:14] LABS: ABG O2 HGB 94.8 % (95-100)
[2021-01-09 20:15] LABS: TROPONIN I 0.021 ng/ml (0.0000-0.120)
--- NOTE | 2021-01-09 20:18 | CT ---
EXAM: CT scan of the chest without contrast HISTORY: Productive cough TECHNIQUE: Helical imaging of the chest was performed without contrast. 5 mm thin axial images and coronal and sagittal reconstructions were obtained. FINDINGS: The heart is normal size. There is diffuse atherosclerotic disease of the thoracic aorta and coronary arteries. There is a small to moderate-sized hiatal hernia. Emphysematous changes are seen within the lungs bilaterally. Patchy tree in bud opacities are suspected in the posterior right upper lobe of the lung seen on axial image number 29 and within the superior segment of the right lo wer lobe of the lung seen on axial image number 36. There is no consolidation. No lytic or blastic lesions are seen within the osseous structures. IMPRESSION: Patchy tree in bud opacities are suspected in the right upper lobe and right lower lobe of the lung as described above and the findings may represent bronchiolitis. There is no consolidation. Hiatal hernia. All CT scans are performed using dose optimization techniques as appropriate to the performed exam an d include at least one of the following: Automated exposure control, adjustment of the mA and/or kV according t o size, and the use of iterative reconstruction technique.
--- NOTE | 2021-01-09 20:21 | CT ---
EXAM: CT scan of the abdomen and pelvis without contrast HISTORY: Cough TECHNIQUE: Helical imaging of the abdomen pelvis was performed without contrast. 3 mm thin axial im ages and coronal and sagittal reconstructions were obtained. Comparison 08/27/2020. FINDINGS: The patient has had previous cholecystectomy. The pancreas, kidneys appear normal. The p roximal ureters are normal size. The small bowel loops are normal caliber. There is no free air. T here has been previous appendectomy. There is no free fluid seen within the pelvis. There has been previous hysterectomy. There is a sma ll to moderate size hiatal hernia. No lytic or blastic lesions are seen within the osseous structure s. There has been previous kyphoplasty or vertebral plasty seen at L2. IMPRESSION: There is no bowel obstruction or acute inflammatory change seen within the abdomen and p koffi. There is no ureteral obstruction. Hiatal hernia. Previous cholecystectomy, previous hysterectomy and previous appendectomy. All CT scans are performed using dose optimization techniques as appropriate to the performed exam an d include at least one of the following: Automated exposure control, adjustment of the mA and/or kV according t o size, and the use of iterative reconstruction technique.
[2021-01-09 20:38] LABS: CREATINE KINASE MB 1.27 ng/ml (0.0-2.38)
[2021-01-09 20:49] LABS: ADENOVIRUS (PCR) NOT DETECTED (NOT DETECT)
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
[2021-01-09 21:15] LABS: BILIRUBIN,URINE Negative (NEGATIVE); CLARITY,URINE Clear (CLEAR); COLOR,URINE Yellow (YELLOW); GLUCOSE, URINE (UA) Negative (NEGATIVE); KETONES,URINE Negative (NEGATIVE); LEUKOCYTE ESTERASE ,URINE Negative (NEGATIVE); NITRITE,URINE Negative (NEGATIVE); PH,URINE 7.5 (5-9); PROTEIN,URINE Negative (NEGATIVE); URINE, BLOOD Negative (NEGATIVE)
[2021-01-09 21:44] LABS: AMPHETAMINE SCREEN,URINE NEGATIVE (NEGATIVE); BARBITURATE SCREEN,URINE NEGATIVE (NEGATIVE); BENZODIAZEPINES SCREEN,URINE NEGATIVE (NEGATIVE); CANNABINOID SCREEN,URINE NEGATIVE (NEGATIVE); COCAIN SCREEN,URINE NEGATIVE (NEGATIVE); METHADONE URINE SCREEN NEGATIVE (NEGATIVE); METHAMPHETAMINES SCREEN,URINE NEGATIVE (NEGATIVE); OPIATE SCREEN,URINE NEGATIVE (NEGATIVE); OXYCODONE URINE SCREEN POSITIVE (NEGATIVE); PHENCYCLIDINE SCREEN,URINE NEGATIVE (NEGATIVE); PROPOXYPHENE URINE SCREEN NEGATIVE (NEGATIVE); TRICYCLIC ANTIDEPRESSANTS URIN NEGATIVE (NEGATIVE)
[2021-01-09] MEDS ORDERED: SODIUM CHLORIDE 1,000 ML IV SCH (22:00)
[2021-01-09] MEDS: DUONEB NEB SCH (23:20)
[2021-01-10 00:24] VITALS: BMI 26.4
[2021-01-10 02:18] LABS: ABG PH 7.37 (7.35-7.45); BEecf 5.9 (-2.0-3.0); COHb 2.9 (0.5-1.5); HCO3 31.2 (21-28); MetHb 0.7 (0-1.5); TCO2 32.9 (19-24); sO2 94.2 % (94-98)
[2021-01-10 02:19] LABS: ABG O2 HGB 94.5 % (95-100); tHb 9.4 g/dl (11.7-17.4)
[2021-01-10] MEDS: DUONEB NEB SCH ×4 (04:45→23:00)
[2021-01-10 05:12] LABS: BASOPHILS # (AUTO) 0.1 K/uL (0-0.2); BASOPHILS % (AUTO) 0.3 % (0.0-3.0); EOSINOPHILS % (AUTO) 0.2 % (0.0-7.0); HEMATOCRIT 30.2 % (37.0-47.0); HEMOGLOBIN 9.4 g/dl (12.0-16.0); IMMATURE GRANULOCYTE # (AUTO) 0.1 (0.0-1.0); IMMATURE GRANULOCYTE % (AUTO) 0.6 % (0.0-5.0); LYMPHOCYTES # (AUTO) 1.6 K/uL (0.60-3.4); MEAN CORPUSCULAR HEMOGLOBIN 28.1 pg (27.0-31.0); MEAN CORPUSCULAR HGB CONC 31.1 (31.8-35.4); MEAN CORPUSCULAR VOLUME 90.1 fl (81.0-99.0); MONOCYTES # (AUTO) 1.6 K/uL (0.4-2.0); NEUTROPHILS # (AUTO) 14.4 K/ul (2.0-6.9); NEUTROPHILS % (AUTO) 80.9 % (42.2-75.2); PLATELET COUNT 214 10^3/uL (140-440); RDW COEFFICIENT OF VARIATION 14.6 % (11.6-14.8); RED BLOOD COUNT 3.35 10^6/ul (4.20-5.40); WHITE BLOOD COUNT 17.75 K/ul (4.6-10.2)
[2021-01-10 05:19] LABS: ALANINE AMINOTRANSFERASE 8.1 U/L (0-35); ALBUMIN 3.95 g/dL (3.5-5.0); ALKALINE PHOSPHATASE 74.7 U/L (53-141); BILIRUBIN,TOTAL 0.42 mg/dL (0.2-1.3); BLOOD UREA NITROGEN 17.5 mg/dL (7-17); CALCIUM 8.71 mg/dL (8.4-10.2); CARBON DIOXIDE 30.3 mmol/L (22-30.0); CHLORIDE 100.8 mmol/L (98-107); CREATININE 0.97 mg/dL (0.60-1.30); GLUCOSE 110.2 mg/dL (74-106); POTASSIUM 4.59 mmol/L (3.5-5.1); SODIUM 135.4 mmol/L (134.5-145); TOTAL PROTEIN 6.9 g/dL (6.3-8.2)
[2021-01-10 06:06] LABS: ABG PH 7.37 (7.35-7.45); BEecf 5.3 (-2.0-3.0); COHb 2.6 (0.5-1.5); HCO3 30.6 (21-28); MetHb 0.7 (0-1.5); TCO2 32.2 (19-24); sO2 97.3 % (94-98)
[2021-01-10 06:07] LABS: ABG O2 HGB 95.7 % (95-100); tHb 9.6 g/dl (11.7-17.4)
--- NOTE | 2021-01-10 07:21 | PCM ---
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 RBC Hgb Hct MCV MCH MCHC RDW Coeff of Lynette Plt Count Immature Gran % (Auto) Neut % (Auto) Lymph % (Auto) Will % (Auto) Eos % (Auto) Baso % (Auto) Neut # (Auto) Lymph # (Auto) Will # (Auto) Eos # (Auto) Baso # (Auto) Immature Gran # (Auto) Puncture Site Base Excess O2 Saturation ABG pH ABG pCO2 ABG pO2 ABG HCO3 ABG Total CO2 Bernabe Test Hemoglobin Oxyhemoglobin Carboxyhemoglobin Total Hemoglobin O2 Delivery Device Oxygen Liter Flow FiO2 % Sodium Potassium Chloride Carbon Dioxide Anion Gap BUN Creatinine Estimated GFR (MDRD) BUN/Creatinine Ratio Glucose Lactic Acid Calcium Total Bilirubin AST ALT Alkaline Phosphatase Ammonia Total Creatine Kinase 131.6 CK-MB (CK-2) 1.270 CK-MB (CK-2) % 0.9600 Troponin I 0.021 Total Protein Albumin Globulin Albumin/Globulin Ratio Procalcitonin Urine Color Yellow Urine Clarity Clear Urine pH 7.5 Ur Specific [place] 1.020 Urine Protein Negative Urine Glucose (UA) Negative Urine Ketones Negative Urine Blood Negative Urine Nitrite Negative Urine Bilirubin Negative Urine Urobilinogen 2.0 H Ur Leukocyte Esterase Negative Urine Opiates Screen Negative Ur Oxycodone Screen Positive H Urine Methadone Screen Negative Ur Propoxyphene Screen Negative Ur Barbiturates Screen Negative U Tricyclic Antidepress Negative Ur Phencyclidine Scrn Negative Ur Amphetamine Screen Negative U Methamphetamines Scrn Negative U Benzodiazepines Scrn Negative Urine Cocaine Screen Negative U Cannabinoids Screen Negative Adenovirus (PCR) B. pertussis DNA (PCR) B.parapertussis DNA PCR C. pneumoniae DNA (PCR) Coronavirus OC43 (PCR) Coronavirus HKU1 (PCR) Coronavirus 229E (PCR) Coronavirus NL63 (PCR) Human Metapneumovir PCR Influenza Type A (PCR) Influenza B (RT-PCR) M. pneumoniae (PCR) Parainfluenza 1 (PCR) Parainfluenza 2 (PCR) Parainfluenza 3 (PCR) Parainfluenza 4 (PCR) RSV (PCR) Entero/Rhino (PCR) SARS-CoV-2 (PCR) 01/09/21 01/10/21 01/10/21 21:26 02:10 05:00 WBC 17.75 H RBC 3.35 L Hgb 9.4 L Hct 30.2 L MCV 90.1 MCH 28.1 MCHC 31.1 L RDW Coeff of Lynette 14.6 Plt Count 214 Immature Gran % (Auto) 0.6 Neut % (Auto) 80.9 H Lymph % (Auto) 9.0 L Will % (Auto) 9.0 Eos % (Auto) 0.2 Baso % (Auto) 0.3 Neut # (Auto) 14.4 H Lymph # (Auto) 1.6 Will # (Auto) 1.6 Eos # (Auto) 0.0 Baso # (Auto) 0.1 Immature Gran # (Auto) 0.1 Puncture Site Rbrach Base Excess 5.9 H O2 Saturation 94.2 ABG pH 7.37 ABG pCO2 54.0 H ABG pO2 74.0 L ABG HCO3 31.2 H ABG Total CO2 32.9 H Bernabe Test + Hemoglobin 0.7 Oxyhemoglobin 94.5 L Carboxyhemoglobin 2.9 H Total Hemoglobin 9.4 L O2 Delivery Device Bipap Oxygen Liter Flow FiO2 % 36.0 Sodium Potassium Chloride Carbon Dioxide Anion Gap BUN Creatinine Estimated GFR (MDRD) BUN/Creatinine Ratio Glucose Lactic Acid Calcium Total Bilirubin AST ALT Alkaline Phosphatase Ammonia < 8.7 L Total Creatine Kinase CK-MB (CK-2) CK-MB (CK-2) % Troponin I Total Protein Albumin Globulin Albumin/Globulin Ratio Procalcitonin Urine Color Urine Clarity Urine pH Ur Specific [place] Urine Protein Urine Glucose (UA) Urine Ketones Urine Blood Urine Nitrite Urine Bilirubin Urine Urobilinogen Ur Leukocyte Esterase Urine Opiates Screen Ur Oxycodone Screen Urine Methadone Screen Ur Propoxyphene Screen Ur Barbiturates Screen U Tricyclic Antidepress Ur Phencyclidine Scrn Ur Amphetamine Screen U Methamphetamines Scrn U Benzodiazepines Scrn Urine Cocaine Screen U Cannabinoids Screen Adenovirus (PCR) B. pertussis DNA (PCR) B.parapertussis DNA PCR C. pneumoniae DNA (PCR) Coronavirus OC43 (PCR) Coronavirus HKU1 (PCR) Coronavirus 229E (PCR) Coronavirus NL63 (PCR) Human Metapneumovir PCR Influenza Type A (PCR) Influenza B (RT-PCR) M. pneumoniae (PCR) Parainfluenza 1 (PCR) Parainfluenza 2 (PCR) Parainfluenza 3 (PCR) Parainfluenza 4 (PCR) RSV (PCR) Entero/Rhino (PCR) SARS-CoV-2 (PCR) 01/10/21 01/10/21 05:00 05:45 WBC RBC Hgb Hct MCV MCH MCHC RDW Coeff of Lynette Plt Count Immature Gran % (Auto) Neut % (Auto) Lymph % (Auto) Will % (Auto) Eos % (Auto) Baso % (Auto) Neut # (Auto) Lymph # (Auto) Will # (Auto) Eos # (Auto) Baso # (Auto) Immature Gran # (Auto) Puncture Site [place] Excess 5.3 H O2 Saturation 97.3 ABG pH 7.37 ABG pCO2 53.0 H ABG pO2 97.0 ABG HCO3 30.6 H ABG Total CO2 32.2 H Bernabe Test + Hemoglobin 0.7 Oxyhemoglobin 95.7 Carboxyhemoglobin 2.6 H Total Hemoglobin 9.6 L O2 Delivery Device Nc Oxygen Liter Flow 3.00 FiO2 % Sodium 135.4 Potassium 4.59 Chloride 100.8 Carbon Dioxide 30.3 H Anion Gap 8.89 BUN 17.5 H Creatinine 0.97 Estimated GFR (MDRD) 56.00 BUN/Creatinine Ratio 18.04 Glucose 110.2 H Lactic Acid Calcium 8.71 Total Bilirubin 0.42 AST 24.0 ALT 8.1 Alkaline Phosphatase 74.7 Ammonia Total Creatine Kinase CK-MB (CK-2) CK-MB (CK-2) % Troponin I Total Protein 6.90 Albumin 3.95 Globulin 2.95 Albumin/Globulin Ratio 1.33 Procalcitonin Urine Color Urine Clarity Urine pH Ur Specific [place] Urine Protein Urine Glucose (UA) Urine Ketones Urine Blood Urine Nitrite Urine Bilirubin Urine Urobilinogen Ur Leukocyte Esterase Urine Opiates Screen Ur Oxycodone Screen Urine Methadone Screen Ur Propoxyphene Screen Ur Barbiturates Screen U Tricyclic Antidepress Ur Phencyclidine Scrn Ur Amphetamine Screen U Methamphetamines Scrn U Benzodiazepines Scrn Urine Cocaine Screen U Cannabinoids Screen Adenovirus (PCR) B. pertussis DNA (PCR) B.parapertussis DNA PCR C. pneumoniae DNA (PCR) Coronavirus OC43 (PCR) Coronavirus HKU1 (PCR) Coronavirus 229E (PCR) Coronavirus NL63 (PCR) Human Metapneumovir PCR Influenza Type A (PCR) Influenza B (RT-PCR) M. pneumoniae (PCR) Parainfluenza 1 (PCR) Parainfluenza 2 (PCR) Parainfluenza 3 (PCR) Parainfluenza 4 (PCR) RSV (PCR) Entero/Rhino (PCR) SARS-CoV-2 (PCR) Orders Category Date Time Status ADMIT PATIENT INPATIENT .TO [facility] (MONITORED BED) ADMISSION 01/09/21 21:35 Active ABG DRAW REQUEST Routine CARDIO 01/10/21 02:09 Completed ABG DRAW REQUEST Routine CARDIO 01/10/21 02:10 Completed ABG DRAW REQUEST Routine CARDIO 01/10/21 06:00 Completed ABG DRAW REQUEST Stat CARDIO 01/09/21 19:11 Completed BIPAP Routine CARDIO 01/09/21 21:38 Active EKG-(ED ONLY) Stat CARDIO 01/09/21 19:11 Completed NEBULIZER TREATMENT Routine CARDIO 01/09/21 21:43 Active ACTIVITY .Up With Assistance CARE 01/09/21 21:37 Active Neuro Checks [NEUROLOGICAL CHECKS] Q4HR CARE 01/09/21 21:42 Active Notify RT of Treatment ONCE CARE 01/10/21 02:10 Active SCD [VTE PREVENTION] .SCD On AM/Off PM CARE 01/09/21 21:46 Active STRAIGHT CATH INSERTION ONCE CARE 01/09/21 19:15 Active TELEMETRY MONITORING TELE CARE 01/09/21 21:36 Active VITALS [VITAL SIGNS] Q8HR CARE 01/09/21 21:47 Active REGULAR DIET DIETARY 01/10/21 Breakfast Ordered ED CAMP COORDINATOR APPLIED .ONCE EMERGENCY 01/09/21 19:11 Active ED IV/MEDIPORT/POWERPORT .ONCE EMERGENCY 01/09/21 19:11 Active ABG COOX Routine LAB 01/10/21 02:09 Ordered ABG COOX Routine LAB 01/10/21 02:10 Completed ABG COOX Routine LAB 01/10/21 05:45 Completed ABG COOX Stat LAB 01/09/21 19:18 Completed ABG COOX Stat LAB 01/09/21 21:41 Stop Req AMMONIA Stat LAB 01/09/21 21:26 Completed BLOOD CULTURE (ED ONLY) Stat LAB 01/09/21 19:59 Received CBC W/ AUTO DIFF Routine LAB 01/10/21 05:00 Completed CBC W/ AUTO DIFF Stat LAB 01/09/21 19:59 Completed COMPREHENSIVE METABOLIC PANEL Stat LAB 01/09/21 19:59 Completed COMPREHENSIVE METABOLIC PANEL Stat LAB 01/10/21 05:00 Completed CREATINE KINASE Stat LAB 01/09/21 19:59 Completed LACTIC ACID Stat LAB 01/09/21 19:59 Completed PROCALCITONIN Stat LAB 01/09/21 19:59 Completed RESPIRATORY PANEL 2.1 (PCR) Stat LAB 01/09/21 19:59 Completed TROPONIN I Stat LAB 01/09/21 19:59 Completed URINALYSIS C & S IF INDICATED Stat LAB 01/09/21 21:00 Completed URINE DRUG SCREEN (RAPID FOR ED) [DRUG SCREEN, URINE, LAB 01/09/21 20:20 Completed RAPID] Stat 0.9 % Sodium Chloride [Saline Flush] MEDS 01/09/21 19:11 Active 1 syr IVF PRN PRN Aspirin [Aspirin EC] MEDS 01/10/21 09:00 Active 81 mg PO DAILY Aztreonam [Azactam] MEDS 01/09/21 19:30 Discontinued 1 gm .ROUTE .STK-MED ONE Aztreonam [Azactam] 1 gm MEDS 01/09/21 19:11 Discontinued 0.9 % Sodium Chloride [Sodium Chloride] 50 ml IV ONCE Carvedilol [Coreg] MEDS 01/10/21 08:30 Active 6.25 mg PO BIDWM Fluoxetine HCl [Prozac] MEDS 01/10/21 09:00 Active 20 mg PO DAILY Ipratropium/Albuterol Neb [Duoneb] MEDS 01/10/21 00:00 Active 3 ml NEB RTQ6H Levofloxacin/D5w [Levaquin 500 mg/100 ml D5w] MEDS 01/10/21 09:00 Active 500 mg in 100 ml IV DAILY Levofloxacin/D5w [Levaquin 750 mg/150 ml D5w] MEDS 01/10/21 09:00 Active 750 mg in 150 ml IV DAILY Losartan Potassium [Cozaar] MEDS 01/10/21 09:00 Active 75 mg PO DAILY Oxycodone-Acetaminophe 7.5-325 [Percocet 7.5-325] MEDS 01/09/21 21:43 Active 0.5 tab PO QID PRN Pantoprazole Sodium [Protonix] MEDS 01/10/21 09:00 Active 40 mg PO BID Sodium Chloride 0.9% [Sodium Chloride] 1,000 ml MEDS 01/09/21 19:11 Discontinued IV 100 mls/hr Sodium Chloride 0.9% [Sodium Chloride] 1,000 ml MEDS 01/09/21 22:00 Active IV 50 mls/hr RESUSCITATION STATUS Routine OTHERS 01/10/21 00:[address] ABDOMEN/PELVIS WO CONTRAST Stat RADS 01/09/21 19:[address] CHEST W/O CONTRAST Stat RADS 01/09/21 19:[address] HEAD W/O CONTRAST Stat RADS 01/09/21 19:13 Completed OT CONSULTATION Routine THERAPIES 01/10/21 Ordered PT CONSULT Routine THERAPIES 01/10/21 Ordered Medications Generic Name Dose Route Start Last Admin Trade Name Freq PRN Reason Stop Dose Admin Albuterol/Ipratropium 3 ml 01/10/21 00:00 01/10/21 04:45 Ipratropium/Albuterol Vial.Neb NEB 3 ml RTQ6H ARTHUR Administration Aspirin 81 mg 01/10/21 09:00 Aspirin 81 Mg Tablet.Dr PO DAILY ARTHUR Carvedilol 6.25 mg 01/10/21 08:30 Carvedilol 6.25 Mg Tablet PO BIDWM ARTHUR Fluoxetine HCl 20 mg 01/10/21 09:00 Fluoxetine Hcl 20 Mg Capsule PO DAILY ARTHUR Sodium Chloride 1,000 mls @ 50 mls/hr 01/09/21 22:00 01/10/21 03:18 Sodium Chloride IV Not Given .Q20H ARTHUR Levofloxacin/Dextrose 500 mg in 100 mls @ 100 mls/hr 01/10/21 09:00 Levaquin 500 Mg/100 Ml D5w IV 01/13/21 08:59 DAILY ARHTUR Levofloxacin/Dextrose 750 mg in 150 mls @ 100 mls/hr 01/10/21 09:00 Levaquin 750 Mg/150 Ml D5w IV 01/13/21 08:59 DAILY ARTHUR Losartan Potassium 75 mg 01/10/21 09:00 Losartan Potassium 25 Mg Tablet PO DAILY ARTHUR Oxycodone/Acetaminophen 0.5 tab 01/09/21 21:43 Oxycodone/Acetaminophen 7.5/325 Mg Tablet PO QID PRN MODERATE PAIN Pantoprazole Sodium 40 mg 01/10/21 09:00 Pantoprazole Sodium 40 Mg Tablet.Dr PO BID ARTHUR Sodium Chloride 1 syr 01/09/21 19:11 0.9% Sodium Chloride 10 Ml Disp.Syrin IVF PRN PRN To flush IV Discontinued Medications Generic Name Dose Route Start Last Admin Trade Name Freq PRN Reason Stop Dose Admin Sodium Chloride 1,000 mls @ 100 mls/hr 01/09/21 19:11 01/09/21 19:33 Sodium Chloride IV 01/10/21 05:10 100 mls/hr .Q10H STA Administration Aztreonam 1 gm/ Sodium 50 mls @ 75 mls/hr 01/09/21 19:11 01/09/21 19:32 Chloride IV 01/09/21 19:50 75 mls/hr ONCE STA Administration IMAGING: CT abd/pelvis w/o IMPRESSION: There is no bowel obstruction or acute inflammatory change seen within the abdomen and pelvis. There is no ureteral obstruction. Hiatal hernia. Previous cholecystectomy, previous hysterectomy and previous appendectomy. CT head: IMPRESSION: No acute intracranial abnormalities are seen. Stable chronic small vessel ischemic changes seen within the supratentorial white matter. CT CHEST: IMPRESSION: Patchy tree in bud opacities are suspected in the right upper lobe and right lower lobe of the lung as described above and the findings may represent bronchiolitis. There is no consolidation. Hiatal hernia. Assessment (1) Bronchiolitis: Status: Acute Code(s): J21.9 - Acute bronchiolitis, unspecified SNOMED Code(s): 1295042 (2) Pneumonia: Status: Acute Code(s): J18.9 - Pneumonia, unspecified organism SNOMED Code(s): 807830057 Qualifiers: Laterality: unspecified laterality Lung location: unspecified part of lung Pneumonia type: due to unspecified organism Qualified Code(s): J18.9 - Pneumonia, unspecified organism (3) Encephalopathy: Status: Acute Code(s): G93.40 - Encephalopathy, unspecified SNOMED Code(s): 73851682 (4) Hypercarbia: Status: Acute Code(s): R06.89 - Other abnormalities of breathing SNOMED Code(s): 93602925 (5) Chronic respiratory failure with hypoxia, on home oxygen therapy: Status: Acute Code(s): J96.11 - Chronic respiratory failure with hypoxia; Z99.81 - Dependence on supplemental oxygen SNOMED Code(s): 193264106 (6) COPD (chronic obstructive pulmonary disease): Status: Acute Code(s): J44.9 - Chronic obstructive pulmonary disease, unspecified SNOMED Code(s): 60586202 (7) Chronic respiratory acidosis: Status: Acute Code(s): E87.2 - Acidosis SNOMED Code(s): 5313922 (8) Opiate use: Status: Acute Code(s): F11.90 - Opioid use, unspecified, uncomplicated SNOMED Code(s): 105813408 (9) Hypertension: Status: Acute Code(s): I10 - Essential (primary) hypertension SNOMED Code(s): 13166104 (10) Chronic shoulder pain: Status: Acute Code(s): M25.519 - Pain in unspecified shoulder; G89.29 - Other chronic pain SNOMED Code(s): 20145121 (11) Altered mental status: Status: Acute Code(s): R41.82 - Altered mental status, unspecified SNOMED Code(s): 768467969 (12) Former smoker: Status: Acute Code(s): Z87.891 - Personal history of nicotine dependence SNOMED Code(s): 0926518 (13) Balance disorder: Status: Acute Code(s): R26.89 - Other abnormalities of gait and mobility SNOMED Code(s): 014602930 (14) Decreased mobility: Status: Acute Code(s): R26.89 - Other abnormalities of gait and mobility SNOMED Code(s): 8009741 (15) Hyperglycemia: Status: Acute Code(s): R73.9 - Hyperglycemia, unspecified SNOMED Code(s): 40834448 Plan Plan: SIRS/COPD/Chronic Respiratory acidosis/Pneumonia: Suspect acute bronchiolitis/mild COPD exacerbation by history and exam. CT showed tree-in-bud phenomenon. She had negative bio fire, negative lactic acid and negative pro calcitonin. She did meet SIRS criteria with elevated white blood cell count and respiratory rate. She has chronic respiratory acidosis with chronic hypercarbia. Chronic O2 at home. She did present with altered mental status and worsening symptoms. I suspect the through the emergency room and overnight she did have some improvement. Antibiotics were given. The CT scan was reviewed and did not support a lobar/consolidating pneumonia. She has not yet had any of the Levaquin that I requested. I will change this to a azithromycin and Rocephin and I will give her 1 dose today via IV. She is currently tolerating p.o. liquids. Based on port score and curb 65 the patient meets inpatient criteria and should be admitted to inpatient status. I suspect length of stay to be 24 hours with proposed/possible discharge tomorrow. However based on encephalopathy detailed by the emergency room doctor and the work-up and plan, IV antibiotics x24 hours are reasonable. We will continue her home medications. We will continue breathing treatments compatible with her COPD. She has had 3 ABGs since admission. All 3 of them showed CO2 in the 53-57 range. Her O2 has been within the normal range and her bicarbonate appears to be compensated. I believe 24 hours of admission to make sure fever is controlled, to make sure she takes antibiotics and returns to baseline cognitive state to be warranted in this case. I have spent 75 minutes today reviewing nursing notes, ER notes, talking with nurses on the floor, reviewing telemetry labs imaging, interpreting ABG, reviewing imaging, and discussing case with patient. Additionally I have spent 10 minutes documenting the patient's history within this note. This was not included in the 75 minutes today. We reviewed smoking history. She denies tobacco but daughter notes that she will occasionally still continue to smoke. Smoking cessation and tobacco avoidance highly encouraged again today (both active and passive). We reviewed GOLD criteria. Gold defines exacerbation of COPD as acute event leading to worsening of respiratory symptoms with 3 cardinal features: increased cough freq/severity, sputum production volume/quality, worsened Dyspnea. She has had all 3/3 of these reported. Risk factors for exacerbations include advancing age, duration of COPD, history of abx use, prev hospitalization within past 12 months, mucus production, comorbidities to include heart disease, CHF, DM, and exposures. Respiratory infections are the most likely trigger in up to 70% of cases to include viral processes such as Rhino (warmer months), liriano, adeno, parainfluenza (cooler months), allergic process, viral/bacterial pneumonia. Studies have shown benefit to bronchodilators (grade 1B) and show reduced time to resolution of cough. Anticholinergic agents are often used in combination as studies show enhanced bronchodilation beyond that seen by either agent alone. Systemic glucocorticoids have been shown to have beneficial effect. Recommendations include dosing steroid equivalent to prednisone 40 mg daily x 5 days. Inhaled GC are of minimal benefit in acute exacerbation, but should not be stopped. We discussed that studies suggest use of abx is controversial but should be considered if CRP >20. These are recommended to be avoided for simple bronchitis. The patient/family voiced understanding. If abx not used initially and patient has limited improvement or worsening over next week the patient/family can contact clinic to consider starting abx. Common abx include doxycycline, FQ, 3rd gen Cephalosporin with or without macrolide. Discussed pros and cons of steroid use both injectable and oral forms. Discussed home use of inhaler and provided education on inhaler usage today and neb meds again today. Regarding steroids: Reviewed potential pros/risks of steroid treatment including rapid improvement of condition; allergic reaction, psychologic reaction (depression, anxiety, insomnia), skin change at injection site (color, dimpling), muscle weakness. Pt is aware they may refuse treatment. Reviewed LAMA, LABA, GC, FRANCISCO JAVIER agents w/ patient. COVID negative, biofire negative. Chest imaging reviewed personally. No consolidation. Exam supports imaging. - Admit inpatient - Telemetry. - Add Prednisone 40mg daily. - Tobacco avoidance discussed specifically - Home meds reconciled. - albuterol 4 puffs q 4 hours shared canister model vs nebs (COVID negative) - Incentive spirometry to be used - Upright/OOB majority of today. - daily 0600 CBC/CMP. - O2 titrate to >88 to <98% - Azithromycin 500 IV x 3 days - Cefdinir 1gram IV daily x 5 days - Complete 5 days abx. Can switch to PO in 24-48 hours. Altered mental status: no changes in opiates. Lactic acid negative, procalc negative, ammonia negative. Chronic dementia known. Reported changes per family, seems to be about baseline this am. Poor sleep 2-3 days, slept better in hospital overnight. May have improved her cognition some this am. GCS 15 and oriented x 3. - Monitor - Can stop neuro checks. Hyponatremia:Corrected sodium normal 134 at admit. Normal on CMP this am. Monitor. - Repeat CMP in am - Monitor Hyperglycemia: mild listed at 156.1 at ER eval. 110.2 this am. Oxygen dependent:O2 at 2-3L titrate to >88 to <98%. Lumbar Pain/Shoulder pain/Chronic Opiate use:Chronic/stable problems. On percocet chronically. Will continue. No increased use of medications reported. No changes, no issues with meds reported. - Continue home medication. Depression:Chronic established problem. We reviewed current therapy for this problem and discussed R/B/A to continued care/cessation of therapy. Discussed need to follow recommendations and to use medications regularly as prescribed, to avoid missing doses as able. Medications reviewed with patient today. We discussed cessation/continuation of medications for current problem. Reordered med refills if needed (see orders). No side effects from medications reported. Risks/benefits to current therapy discussed. Currently on prozac/stable. continue current medications Prozac 20mg daily. - Continue home medications. Former smoker: Tobacco Cessation discussed today. We reviewed lifestyle choices and discussed quitting. Ready to quit status discussed. The risks and hazards of continued tobacco abuse were discussed with the patient today and total tobacco cessation as recommended. It was clearly and unambiguously explained that continued tobacco usage will adversely affect overall morbidity and mortality of the patient. Patient was informed that tobacco use can lead to numerous cancers, worsening of cardiovascular and pulmonary systems and that lung damage is often permanent and irreversible. I advised the patient to inform me if any further assistance is requested, as we can offer counseling services, nicotine replacement inhaled, patch, lozenge, gum, or prescription medications to include Chantix or Wellbutrin for assistance. I will reassess the interest in tobacco cessation at the next and all subsequent visits. - Declined: Not interested in patches during hospital stay. Diet:As tolerated Regular. Activity:Fall Precautions. Monitor I+O. Offered tobacco patch, declined. GI Prophy:On PPI already through home med, resume home medications. DVT Prophy:Lovenox 40mg subcutaneous daily. Crcl is stable. Disposition:Discussed care with nursing and with patient today. I suspect she needs 1-2 days of hospitalization before return to baseline state. Mild worsening of breathing is present. I do believe that they caught it early and benefited from early hospital eval. Her encephalopathy ID in ED seems better. She seems to be close to baseline. I d/w dr. tolbert last night. I believe abx changes to cover for atypicals would be better. Would like to monitor for fever. If afebrile 24 hours, O2 requirements not elevated, back to baseline self w/ cognition, likely d/c home tomorrow. She has hyponatremia that corrects to normal. Mood is stable. Potassium this time is okay. Her abg look chronic/compensated. F/U with am in hospital tomorrow. I believe based on PORT score/Curb-65 that she warrants admit. SIRS +, SEPSIS markers negative. O2 to be titrated to 88-98%. She needs to breath more deeply, get out of bed. Opiate R/B/A d/w patient. Continue tobacco avoidance d/w patient. Declined patches. Total time rounding with patient today 75 minutes, not including documentation. Rounding with nurse Paz today.
[2021-01-10] MEDS: COZAAR PO SCH (08:47)
[2021-01-10] MEDS: ROCEPHIN 1 GM/50 ML D5W 1 GM/50 ML BAG IV SCH (08:47)
[2021-01-10] MEDS: SODIUM CHLORIDE 1,000 ML IV SCH ×3 (08:48→23:58)
[2021-01-10] MEDS: COREG PO SCH ×2 (08:48→17:38)
[2021-01-10] MEDS: PROZAC PO SCH (08:48)
[2021-01-10] MEDS: ASPIRIN EC PO SCH (08:48)
[2021-01-10] MEDS: PROTONIX PO SCH ×2 (08:48→20:31)
[2021-01-10] MEDS: LOVENOX SUBCUT SCH (08:49)
[2021-01-10] MEDS ORDERED: LEVAQUIN 500 MG/100 ML D5W 500 MG/100 ML BAG IV SCH (09:00)
[2021-01-10] MEDS ORDERED: LEVAQUIN 750 MG/150 ML D5W 750 MG/150 ML BAG IV SCH (09:00)
[2021-01-10] MEDS: ZITHROMAX 500 MG in SODIUM CHLORIDE 250 ML IV SCH (09:49)
[2021-01-10] MEDS: PREDNISONE PO SCH (12:44)
[2021-01-10] MEDS: PERCOCET 7.5-325 PO PRN ×2 (13:36→21:42)
[2021-01-11] MEDS: DUONEB NEB SCH ×2 (04:45→11:05)
[2021-01-11 07:43] LABS: BASOPHILS % (AUTO) 0.3 % (0.0-3.0); EOSINOPHILS % (AUTO) 0.1 % (0.0-7.0); HEMATOCRIT 28.2 % (37.0-47.0); HEMOGLOBIN 8.9 g/dl (12.0-16.0); IMMATURE GRANULOCYTE # (AUTO) 0.1 (0.0-1.0); IMMATURE GRANULOCYTE % (AUTO) 0.4 % (0.0-5.0); LYMPHOCYTES # (AUTO) 1.6 K/uL (0.60-3.4); MEAN CORPUSCULAR HEMOGLOBIN 28.6 pg (27.0-31.0); MEAN CORPUSCULAR HGB CONC 31.6 (31.8-35.4); MEAN CORPUSCULAR VOLUME 90.7 fl (81.0-99.0); MONOCYTES # (AUTO) 1.1 K/uL (0.4-2.0); MONOCYTES % (AUTO) 6.8 (0-10); NEUTROPHILS % (AUTO) 82.4 % (42.2-75.2); PLATELET COUNT 208 10^3/uL (140-440); RDW COEFFICIENT OF VARIATION 14.6 % (11.6-14.8); RED BLOOD COUNT 3.11 10^6/ul (4.20-5.40); WHITE BLOOD COUNT 15.77 K/ul (4.6-10.2)
[2021-01-11 07:51] LABS: ALANINE AMINOTRANSFERASE 18.7 U/L (0-35); ALBUMIN 3.89 g/dL (3.5-5.0); ALKALINE PHOSPHATASE 80.6 U/L (53-141); ASPARTATE AMINO TRANSFERASE 39.6 U/L (14-36); BILIRUBIN,TOTAL 0.25 mg/dL (0.2-1.3); BLOOD UREA NITROGEN 12.5 mg/dL (7-17); CALCIUM 8.63 mg/dL (8.4-10.2); CARBON DIOXIDE 29.6 mmol/L (22-30.0); CHLORIDE 101.7 mmol/L (98-107); CREATININE 0.72 mg/dL (0.60-1.30); GLUCOSE 99.3 mg/dL (74-106); POTASSIUM 4.29 mmol/L (3.5-5.1); SODIUM 136.1 mmol/L (134.5-145); TOTAL PROTEIN 6.84 g/dL (6.3-8.2)
[2021-01-11] MEDS: ROCEPHIN 1 GM/50 ML D5W 1 GM/50 ML BAG IV SCH (08:53)
[2021-01-11] MEDS: PROZAC PO SCH (08:54)
[2021-01-11] MEDS: PROTONIX PO SCH (08:54)
[2021-01-11] MEDS: COREG PO SCH (08:54)
[2021-01-11] MEDS: ASPIRIN EC PO SCH (08:54)
[2021-01-11] MEDS: PREDNISONE PO SCH (08:54)
[2021-01-11] MEDS: COZAAR PO SCH (08:54)
[2021-01-11] MEDS: LOVENOX SUBCUT SCH (08:55)
[2021-01-11] MEDS ORDERED: NORVASC PO SCH (09:00)
[2021-01-11] MEDS: ZITHROMAX 500 MG in SODIUM CHLORIDE 250 ML IV SCH (09:48)
--- NOTE | 2021-01-11 13:16 | PCM.DC ---
Final Diagnosis: 1. Bronchiolitis 2. SIRS 3. Pneumonia 4. Encephalopathy 5. Chronic dementia 6. Chronic o2 use 7. Hypercarbia 8. Chronic respiratory failure w/ hypoxia 9. Chronic COPD 10. HTN 11. Chronic pain/Chronic opiate use 12. Former Smoker 13. Balance Disorder (1) Bronchiolitis: Status: Acute Code(s): J21.9 - Acute bronchiolitis, unspecified SNOMED Code(s): 8960667 (2) Pneumonia: Status: Acute Code(s): J18.9 - Pneumonia, unspecified organism SNOMED Code(s): 409458787 Qualifiers: Laterality: unspecified laterality Lung location: unspecified part of lung Pneumonia type: due to unspecified organism Qualified Code(s): J18.9 - Pneumonia, unspecified organism (3) Encephalopathy: Status: Acute Code(s): G93.40 - Encephalopathy, unspecified SNOMED Code(s): 17888999 (4) Hypercarbia: Status: Acute Code(s): R06.89 - Other abnormalities of breathing SNOMED Code(s): 66759240 (5) Chronic respiratory failure with hypoxia, on home oxygen therapy: Status: Acute Code(s): J96.11 - Chronic respiratory failure with hypoxia; Z99.81 - Dependence on supplemental oxygen SNOMED Code(s): 870654634 (6) COPD (chronic obstructive pulmonary disease): Status: Acute Code(s): J44.9 - Chronic obstructive pulmonary disease, unspecified SNOMED Code(s): 97162777 (7) Chronic respiratory acidosis: Status: Acute Code(s): E87.2 - Acidosis SNOMED Code(s): 0839816 (8) Opiate use: Status: Acute Code(s): F11.90 - Opioid use, unspecified, uncomplicated SNOMED Code(s): 634197616 (9) Hypertension: Status: Acute Code(s): I10 - Essential (primary) hypertension SNOMED Code(s): 79751625 (10) Chronic shoulder pain: Status: Acute Code(s): M25.519 - Pain in unspecified shoulder; G89.29 - Other chronic pain SNOMED Code(s): 09142681 (11) Altered mental status: Status: Acute Code(s): R41.82 - Altered mental status, unspecified SNOMED Code(s): 914242425 (12) Former smoker: Status: Acute Code(s): Z87.891 - Personal history of nicotine dependence SNOMED Code(s): 5623007 (13) Balance disorder: Status: Acute Code(s): R26.89 - Other abnormalities of gait and mobility SNOMED Code(s): 551611868 (14) Decreased mobility: Status: Acute Code(s): R26.89 - Other abnormalities of gait and mobility SNOMED Code(s): 4312489 (15) Hyperglycemia: Status: Acute Code(s): R73.9 - Hyperglycemia, unspecified SNOMED Code(s): 21182516 Reason for Hospitalization: SOA, altered mental status, fever. Prognosis/Condition at Discharge: Back to baseline. Needs 24 hour monitoring. Medications at Discharge: Ambulatory Orders Medication Instructions Recorded aspirin 81 mg tablet,delayed 81 mg PO DAILY 90 Days #90 tab-cap 04/30/19 release (Aspir-) fluticasone propionate 50 2 spray INTRANASAL DAILY 30 Days 04/30/19 mcg/actuation nasal #1 inha spray,suspension magnesium oxide 400 mg (241.3 mg 400 mg PO DAILY 90 Days #90 tab 02/04/20 magnesium) tablet gabapentin 600 mg tablet 600 mg PO BID 90 Days #180 tab-cap 07/20/20 albuterol sulfate 2.5 mg (3 mL) INHALATION Q6H #180 07/21/20 ml potassium chloride 20 mEq 20 meq PO DAILY #30 tab 08/31/20 tablet,extended release(part/cryst) (Klor-Con M) saliva substitute combo no.9 15 ml MUCOUS MEMBRANE BID-QID PRN 09/03/20 (Biotene PBF) #473 ml losartan 50 mg tablet 75 mg PO QDAY #45 tab 09/28/20 albuterol sulfate 90 mcg/actuation 2 puff IH .q 4 hour PRN #18 gm 11/25/20 aerosol inhaler (ProAir HFA) fluticasone fur. 100 mcg-umeclid 1 inh INHALATION Q24H #60 ea 11/25/20 62.5 mcg-vilant 25 mcg inhalat.powder (Trelegy Ellipta) pantoprazole 40 mg tablet,delayed 40 mg PO BID #60 tab-cap 11/25/20 release (Protonix) carvedilol 6.25 mg tablet 6.25 mg PO BIDWM 30 Days #60 tab 12/24/20 fluoxetine 20 mg capsule (Prozac) 20 mg PO QDAY #30 cap 12/24/20 montelukast 10 mg tablet 10 mg PO DAILY 30 Days #30 tab-cap 12/24/20 (Singulair) oxycodone-acetaminophen 7.5 mg-325 0.5 tab PO QID PRN #60 tab 12/24/20 mg tablet (Percocet) ropinirole 1 mg tablet 1 mg PO DAILY #30 tab-cap 12/24/20 amlodipine 5 mg tablet 5 mg PO DAILY 30 Days #30 tab 01/11/21 azithromycin 500 mg tablet See Rx Instructions .ROUTE 01/11/21 .COMPLEX #1 tab cefdinir 300 mg capsule 300 mg PO BID 4 Days #8 cap 01/11/21 prednisone 20 mg tablet 40 mg PO DAILY #10 tab 01/11/21 Lab/Diagnostics: Laboratory Last Values WBC 15.77 K/ul (4.6-10.2) H 01/11/21 07:25 RBC 3.11 10^6/ul (4.20-5.40) L 01/11/21 07:25 Hgb 8.9 g/dl (12.0-16.0) L 01/11/21 07:25 Hct 28.2 % (37.0-47.0) L 01/11/21 07:25 MCV 90.7 fl (81.0-99.0) 01/11/21 07:25 MCH 28.6 pg (27.0-31.0) 01/11/21 07:25 MCHC 31.6 (31.8-35.4) L 01/11/21 07:25 RDW Coeff of Lynette 14.6 % (11.6-14.8) 01/11/21 07:25 Plt Count 208 10^3/uL (140-440) 01/11/21 07:25 Immature Gran % (Auto) 0.4 % (0.0-5.0) 01/11/21 07:25 Neut % (Auto) 82.4 % (42.2-75.2) H 01/11/21 07:25 Lymph % (Auto) 10.0 (10.0-50.0) 01/11/21 07:25 [place] % (Auto) 6.8 (0-10) 01/11/21 07:25 Eos % (Auto) 0.1 % (0.0-7.0) 01/11/21 07:25 Baso % (Auto) 0.3 % (0.0-3.0) 01/11/21 07:25 Neut # (Auto) 13.0 K/ul (2.0-6.9) H 01/11/21 07:25 Lymph # (Auto) 1.6 K/uL (0.60-3.4) 01/11/21 07:25 [place] # (Auto) 1.1 K/uL (0.4-2.0) 01/11/21 07:25 Eos # (Auto) 0.0 K/ul (0.0-0.7) 01/11/21 07:25 Baso # (Auto) 0.0 K/uL (0-0.2) 01/11/21 07:25 Immature Gran # (Auto) 0.1 (0.0-1.0) 01/11/21 07:25 Puncture Site Lrad 01/10/21 05:45 Base Excess 5.3 (-2.0-3.0) H 01/10/21 05:45 O2 Saturation 97.3 % (94-98) 01/10/21 05:45 ABG pH 7.37 (7.35-7.45) 01/10/21 05:45 ABG pCO2 53.0 mmHg (35-45) H 01/10/21 05:45 ABG pO2 97.0 mmHg (85-100) 01/10/21 05:45 ABG HCO3 30.6 (21-28) H 01/10/21 05:45 ABG Total CO2 32.2 (19-24) H 01/10/21 05:45 Bernabe Test + 01/10/21 05:45 Hemoglobin 0.7 (0-1.5) 01/10/21 05:45 Oxyhemoglobin 95.7 % (95-100) 01/10/21 05:45 Carboxyhemoglobin 2.6 (0.5-1.5) H 01/10/21 05:45 Total Hemoglobin 9.6 g/dl (11.7-17.4) L 01/10/21 05:45 O2 Delivery Device Nc 01/10/21 05:45 Oxygen Liter Flow 3.00 01/10/21 05:45 FiO2 % 36.0 % 01/10/21 02:10 Sodium 136.1 mmol/L (134.5-145) 01/11/21 07:25 Potassium 4.29 mmol/L (3.5-5.1) 01/11/21 07:25 Chloride 101.7 mmol/L (98-107) 01/11/21 07:25 Carbon Dioxide 29.6 mmol/L (22-30.0) 01/11/21 07:25 Anion Gap 9.09 01/11/21 07:25 BUN 12.5 mg/dL (7-17) 01/11/21 07:25 Creatinine 0.72 mg/dL (0.60-1.30) 01/11/21 07:25 Estimated GFR (MDRD) 79.00 mL/min 01/11/21 07:25 BUN/Creatinine Ratio 17.36 01/11/21 07:25 Glucose 99.3 mg/dL (74-106) 01/11/21 07:25 Lactic Acid 0.60 mmol/L (0.7-2.1) L 01/09/21 19:59 Calcium 8.63 mg/dL (8.4-10.2) 01/11/21 07:25 Total Bilirubin 0.25 mg/dL (0.2-1.3) 01/11/21 07:25 AST 39.6 U/L (14-36) H 01/11/21 07:25 ALT 18.7 U/L (0-35) 01/11/21 07:25 Alkaline Phosphatase 80.6 U/L (53-141) 01/11/21 07:25 Ammonia < 8.7 umol/L (9-30) L 01/09/21 21:26 Total Creatine Kinase 131.6 U/L (30-135) 01/09/21 19:59 CK-MB (CK-2) 1.270 ng/ml (0.0-2.38) 01/09/21 19:59 CK-MB (CK-2) % 0.9600 01/09/21 19:59 Troponin I 0.021 ng/ml (0.0000-0.120) 01/09/21 19:59 Total Protein 6.84 g/dL (6.3-8.2) 01/11/21 07:25 Albumin 3.89 g/dL (3.5-5.0) 01/11/21 07:25 Globulin 2.95 01/11/21 07:25 Albumin/Globulin Ratio 1.31 01/11/21 07:25 Procalcitonin < 0.05 ng/mL (0.09) 01/09/21 19:59 Urine Color Yellow (YELLOW) 01/09/21 21:00 Urine Clarity Clear (CLEAR) 01/09/21 21:00 Urine pH 7.5 (5-9) 01/09/21 21:00 Ur Specific [place] 1.020 (1.005-1.030) 01/09/21 21:00 Urine Protein Negative (NEGATIVE) 01/09/21 21:00 Urine Glucose (UA) Negative (NEGATIVE) 01/09/21 21:00 Urine Ketones Negative (NEGATIVE) 01/09/21 21:00 Urine Blood Negative (NEGATIVE) 01/09/21 21:00 Urine Nitrite Negative (NEGATIVE) 01/09/21 21:00 Urine Bilirubin Negative (NEGATIVE) 01/09/21 21:00 Urine Urobilinogen 2.0 (0.2) H 01/09/21 21:00 Ur Leukocyte Esterase Negative (NEGATIVE) 01/09/21 21:00 Urine Opiates Screen Negative (NEGATIVE) 01/09/21 20:20 Ur Oxycodone Screen Positive (NEGATIVE) H 01/09/21 20:20 Urine Methadone Screen Negative (NEGATIVE) 01/09/21 20:20 Ur Propoxyphene Screen Negative (NEGATIVE) 01/09/21 20:20 Ur Barbiturates Screen Negative (NEGATIVE) 01/09/21 20:20 U Tricyclic Antidepress Negative (NEGATIVE) 01/09/21 20:20 Ur Phencyclidine Scrn Negative (NEGATIVE) 01/09/21 20:20 Ur Amphetamine Screen Negative (NEGATIVE) 01/09/21 20:20 U Methamphetamines Scrn Negative (NEGATIVE) 01/09/21 20:20 U Benzodiazepines Scrn Negative (NEGATIVE) 01/09/21 20:20 Urine Cocaine Screen Negative (NEGATIVE) 01/09/21 20:20 U Cannabinoids Screen Negative (NEGATIVE) 01/09/21 20:20 Adenovirus (PCR) Not detected (NOT DETECT) 01/09/21 19:59 B. pertussis DNA (PCR) Not detected (NOT DETECT) 01/09/21 19:59 B.parapertussis DNA PCR Not detected (NOT DETECT) 01/09/21 19:59 C. pneumoniae DNA (PCR) Not detected (NOT DETECT) 01/09/21 19:59 Coronavirus OC43 (PCR) Not detected (NOT DETECT) 01/09/21 19:59 Coronavirus HKU1 (PCR) Not detected (NOT DETECT) 01/09/21 19:59 Coronavirus 229E (PCR) Not detected (NOT DETECT) 01/09/21 19:59 Coronavirus NL63 (PCR) Not detected (NOT DETECT) 01/09/21 19:59 Human Metapneumovir PCR Not detected (NOT DETECT) 01/09/21 19:59 Influenza Type A (PCR) Not detected (NOT DETECT) 01/09/21 19:59 Influenza B (RT-PCR) Not detected (NOT DETECT) 01/09/21 19:59 M. pneumoniae (PCR) Not detected (NOT DETECT) 01/09/21 19:59 Parainfluenza 1 (PCR) Not detected (NOT DETECT) 01/09/21 19:59 Parainfluenza 2 (PCR) Not detected (NOT DETECT) 01/09/21 19:59 Parainfluenza 3 (PCR) Not detected (NOT DETECT) 01/09/21 19:59 Parainfluenza 4 (PCR) Not detected (NOT DETECT) 01/09/21 19:59 RSV (PCR) Not detected (NOT DETECT) 01/09/21 19:59 Entero/Rhino (PCR) Not detected (NOT DETECT) 01/09/21 19:59 SARS-CoV-2 (PCR) Not detected (NOT DETECT) 01/09/21 19:59 Education Provided to Patient and Family: 1. Opiates 2. Abx 3. Pneumonia 4. Incentive spirometer/deep breathing 5. When to come to clinic 6. When to go to ER. 7. Home medications 8. Dementia. 9. Norvasc, monitor for peripheral edema. Follow-ups: Dr. Bearden 01/17/21 at 3pm. Discharge Disposition: Home Hospital Course: 75-year-old female hospital day #2 admitted with bronchiolitis/SIRS/pneumonia/altered mental status. Patient has chronic COPD, chronic tobacco use reported former smoker. Patient received 1 dose of aztreonam in the emergency room and received 1 dose of azithromycin 500 and Rocephin 1 g yesterday. We will continue 3 days of the azithromycin and 5 days of cephalosporin. Patient remained afebrile throughout yesterday and none to today. Blood pressure however has been elevated throughout the entire hospitalization. Blood pressures this morning 175/79. Respiratory rate has improved and is now 18-20 which is baseline. O2 saturation 93 to 98% on 3 L telemetry has shown sinus rhythm and some sinus arrhythmia with some PACs. I reviewed the patient's blood pressure medications and I will add Norvasc 5 mg daily to losartan 75 mg and coreg 6.25 BID. She remains on Lovenox 40 mg subcutaneously for DVT prophylaxis. She is on Protonix chronically for GERD. We did start prednisone 40 mg yesterday for her breathing. The patient is up a net 3 L yesterday. I will stop the fluids. Voids have been good. Reviewed overnight nursing documentation. At 1930 patient sitting in bed watching TV alert self time and situation. She thought she was at [facility] to the nurses. Restless and fidgeting. No pain hacking cough shortness of breath. Incentive spirometer at bedside. Reviewed respiratory therapy note. Patient is getting 900 mils on first attempts of incentive spirometer and down to 500 mils after that. Decreased effort chronically. Chronic home O2 noted. I reviewed case management note from yesterday. Patient has chronic dementia. She was admitted with possible encephalopathy. I have ordered a CBC and a CMP for this morning. They are currently pending. PT consult 01 10 reviewed declined ambulation, decreased balance, decreased lower extremity range of motion and strength. Patient was impulsive regarding verbal cues transferred to sit to support with SBA. Therapy feels patient does not need to be at home alone. She does live with grandson and daughter who are there regularly. Elliot amador is not appropriate for physical therapy at this time due to cognitive deficits and being unable to recall training. They feel she would benefit from 24-hour supervision at discharge. Additionally not a good candidate for occupational therapy and ability to retain education and training for ADLs. Patient is not safe impulsive during transfers and ADLs. CMP showed sodium satable 136.1, K+ 4.29, cl 101.7, creatinine 0.72, glucose 99.3, WBC 15.77, hgb 8.9, plt 208. Patient is ready for d/c home. Patient pleasant and ready for d/c. Medically optimized for return to family. May be benefitted by assisted living vs NH facility. Family wants home. D/C with instruction to f/u next week with me. Take 1 more day of azithromax, 4 more days of cefdinir, 4 days of prednisone. Avoid tobacco. Vital Signs - 24 hr 01/10/21 18:31 01/10/21 20:00 01/10/21 21:01 Temperature 97.7 F Pulse Rate 67 Respiratory Rate 18 Blood Pressure 172/78 H O2 Sat by Pulse Oximetry 97 97 97 01/11/21 05:20 01/11/21 05:33 01/11/21 09:54 Temperature 97.2 F L Pulse Rate 70 Respiratory Rate 20 Blood Pressure 175/79 H O2 Sat by Pulse Oximetry 95 93 L 99 01/11/21 13:47 Temperature 97.3 F L Pulse Rate 67 Respiratory Rate 20 Blood Pressure 177/80 H O2 Sat by Pulse Oximetry 96 Constitutional:Appearance-Mild tachypnea (baseline), +Hirsuit upper lip, Consistent with stated age. Orientation- Oriented x 3, alert, Build and Nutrition-[normal BMI 26.4] General- Patient is pleasant and cooperative with the interview and exam. Lying supine in bed. Rolled to lateral decubitus.No sores, no decubitus ulcers. Terrazzo Finisher 5/5, strength 5/5. Normal use of extremities. No rash noted. Scattered ecchymosis bilateral UE. Integumentary:General-No rashes, ulcers or lesions. Palpation- Normal skin moisture/turgor. Skin is warm to touch, appropriate. Capillary refill is normal bilateral Upper and lower extremity. Eye:Bilaterally PERRLA, EOMI. No discharge. Upper and lower eyelids are normal. Sclera/conjunctiva normal without discharge. Cornea is normal and clear. Lens is normal. Eyeball appears normal. No ciliary flushing, no conjunctival injection. ENMT:Nasal mucosa- No bleeding noted and no ulcerations observed. [place], moist. Turbinates non boggy. Lips- normal color, moist without cracks/lesions Oral Cavity/Palate- hard/soft palate intact without lesions, oral mucosa pink and moist. Dentures present, no oral sores, Tongue normal midline. Oropharynx- no pharyngeal erythema, Uvula midline. No post nasal drip. No exudate. Salivary glands- Non tender to palpation CHEST/LUNG:Inspection- symmetric chest Wall. Mildly increased respiratory effort, this is beyond baseline. no distress, talking in compelte sentences. No abdominal breathing, no other use of accessory muscles. Palpation- nontender sternum, ribline pectoralis region Auscultation- Breath sounds decreased/coarse throughout. Mild to moderate worsening compared to baseline throughout all lung tobin. tracheal sounds, bronchial sounds overlying sternum, Bronchovessicular sounds between scapulae posteriorly, vessicular breath sounds heard throughout periphery scattered rhonchi. MIld peripheral/lower lobe crackling. Scattered wheezes, Scattered rhonchi. Tolerating O2 NC. No egophany. CARDIOVASCULAR:Palpation/Percussion- Normal PMI, no palpable thrill Auscultation- Regular rate and rhythm. Distant sounds, III/ murmur left sternal border noted in sitting, supine positions. This does radiate into axilla and carotid region. Extremities- no cyanosis, no edema, clubbing, no increased warmth of extremities ABDOMEN:Inspection- normal and no visible pulsations. Normal contour. Auscultation- Bowel sounds normal, no abdominal bruits. Palpation/Percussion- soft, non-tender, no rebound tenderness, no rigidity (guarding), no jar tenderness, no masses. Peripheral Vascular:Upper extremity Left- Normal temperature with pink nailbeds and no ulcerations. Upper extremity Right- Normal temperature with pink nailbeds and no ulcerations. Lower extremity- Normal temperature with pink nailbeds and no ulcerations. DP pulses 2+ bilaterally. Onychomycosis, nail hypertrophy is present. Pedal hair reduced but intact. Normal capillary refill. Edema- No edema. Musculoskeletal:Generalized-No generalized swelling or edema of extremities, no digital clubbing or cyanosis, neurovascularly intact all four extremities. Neurological:General- Moves all 4 extremities,Symmetrical face and body posture. Cranial nerves- individually evaluated II-XII and intact. PERRLA, Normal EOMI, visual/special senses appear intact, Face is symmetrical and normal sensation/movement, normal tongue, normal strength/posture of neck musculature. Neuropsych:Oriented- Person, place, time. (AAOx3), GCS 15 by my eval (14 by nurses), Mood/affect- normal and congruent. Pain controlled. She is Able to articulate okay, answers questions appropriately. Appears to be at baseline. Speech-Normal speech, normal rate, normal tone, normal use of language, volume and coherence. Thought content- Diminished, could not do basic computations, unable to spell world backwards. Able to apply abstract thought/reason. Associations- questionable, no SI/HI, no hallucinations, delusions, obsessions. Lymphatic: Head/Neck- normal size and non tender to palpation. Axillary- normal size and non tender to palpation. Femoral and Inguinal- normal size and non tender to palpation. Plan: 1. D/c home with family care. Needs 24 hours surveillance. 2. Finish antibiotics as listed. 1 day of azithromycin tomorrow. Cefdinir x 4 days starting tomorrow. Prednisone 40mg daily x 5 days starting tomorrow. 3. Incentive spirometer to be used every 2-3 hours 4. Continue avoidance of tobacco 5. F/U in office with me on 01/17/21 at 3 pm. 6. Continue home medications 7. Added Norvasc Opiate safety d/w patient. Follow up in clinic sooner or in ER if worsening. 32 minutes spent today with patient, discussion w/ nursing, review telemetry, review labs. Education/discussion w/ patient regarding above. Reviewed OT/PT notes as well.
[2021-01-11 13:48] VITALS: BP 177/80; TEMP 97.3
== END 2021-01-11 14:06 | disposition home or self-care (01) ==
LOC: ED 19:07 → INTOOBSV 21:32 → MEDSURG A 21:32
PROVIDERS: ADMIT Family Medicine; ATTEND Family Medicine
DX: J96.11 Chronic respiratory failure with hypoxia; Z87.891 Personal history of nicotine dependence; R26.89 Other abnormalities of gait and mobility; I10 Essential (primary) hypertension; M25.519 Pain in unspecified shoulder; R73.9 Hyperglycemia, unspecified; G93.40 Encephalopathy, unspecified; F11.90 Opioid use, unspecified, uncomplicated; R41.82 Altered mental status, unspecified; Z20.822 Contact with and (suspected) exposure to COVID-19; J18.9 Pneumonia, unspecified organism; Z79.899 Other long term (current) drug therapy; J44.9 Chronic obstructive pulmonary disease, unspecified; Z99.81 Dependence on supplemental oxygen; E87.2 Acidosis; G89.29 Other chronic pain; J21.9 Acute bronchiolitis, unspecified

== ENCOUNTER 2021-06-15 01:47 | Inpatient (IN) ==
[2021-06-15 02:18] LABS: BASOPHILS % (AUTO) 0.2 % (0.0-3.0); EOSINOPHILS # (AUTO) 0.1 K/ul (0.0-0.7); EOSINOPHILS % (AUTO) 0.9 % (0.0-7.0); HEMOGLOBIN 9.2 g/dl (12.0-16.0); IMMATURE GRANULOCYTE # (AUTO) 0.1 (0.0-1.0); IMMATURE GRANULOCYTE % (AUTO) 0.5 % (0.0-5.0); LYMPHOCYTES # (AUTO) 0.9 K/uL (0.60-3.4); MEAN CORPUSCULAR HGB CONC 28.8 (31.8-35.4); MEAN CORPUSCULAR VOLUME 97.3 fl (81.0-99.0); MONOCYTES # (AUTO) 1.3 K/uL (0.4-2.0); MONOCYTES % (AUTO) 10.3 (0-10); NEUTROPHILS # (AUTO) 10.5 K/ul (2.0-6.9); NEUTROPHILS % (AUTO) 81.1 % (42.2-75.2); PLATELET COUNT 259 10^3/uL (140-440); RDW COEFFICIENT OF VARIATION 15.1 % (11.6-14.8); RED BLOOD COUNT 3.29 10^6/ul (4.20-5.40)
[2021-06-15 02:25] LABS: ABG O2 HGB 64.7 % (95-100); BEecf 9.9 (-2.0-3.0); COHb 2.1 (0.5-1.5); HCO3 38.7 (21-28); MetHb 1.1 (0-1.5); TCO2 42.1 (19-24); sO2 56.4 % (94-98); tHb 9.4 g/dl (11.7-17.4)
[2021-06-15 02:26] LABS: ANISOCYTOSIS NOT PRESENT (NOT PRESENT); HYPOCHROMASIA OCCASIONAL (NOT PRESENT)
[2021-06-15 02:30] LABS: ALANINE AMINOTRANSFERASE 15.2 U/L (0-35); ALBUMIN 4.39 g/dL (3.5-5.0); ALKALINE PHOSPHATASE 109.1 U/L (53-141); ASPARTATE AMINO TRANSFERASE 30.8 U/L (14-36); BILIRUBIN,TOTAL 0.37 mg/dL (0.2-1.3); BLOOD UREA NITROGEN 21.7 mg/dL (7-17); CALCIUM 8.45 mg/dL (8.4-10.2); CARBON DIOXIDE 34.8 mmol/L (22-30.0); CHLORIDE 97.4 mmol/L (98-107); CREATININE 1.35 mg/dL (0.60-1.30); GLUCOSE 137.1 mg/dL (74-106); POTASSIUM 5.92 mmol/L (3.5-5.1); SODIUM 136.9 mmol/L (134.5-145); TOTAL PROTEIN 7.17 g/dL (6.3-8.2)
[2021-06-15 02:34] LABS: ABG PH 7.15 (7.35-7.45)
[2021-06-15] MEDS ORDERED: SOLU-MEDROL 125 MG IVP STA (02:39)
[2021-06-15] MEDS ORDERED: DUONEB NEB STA (02:40)
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
[2021-06-15] MEDS ORDERED: ZITHROMAX 500 MG in SODIUM CHLORIDE 250 ML IV ONE (02:46)
[2021-06-15] MEDS ORDERED: ZOFRAN 4 MG/2 ML IVP PRN (03:07)
--- NOTE | 2021-06-15 03:07 | DI ---
EXAM: AP chest. HISTORY: Shortness of breath. FINDINGS: There is a left shoulder arthroplasty. The cardiac silhouette is enlarged. There is a hia sergio hernia. The costophrenic angles are clear. There are bilateral infiltrates. Impression: Bilateral infiltrates consistent with infection versus edema. Cardiomegaly. Hiatal hernia.
[2021-06-15] MEDS ORDERED: SALIVA SUBSTITUTE COMBO NO 9 MOUTHWASH PO PRN (03:14)
[2021-06-15 03:45] LABS: ADENOVIRUS (PCR) NOT DETECTED (NOT DETECT); BORDETELLA PARAPERTUSSIS (PCR) NOT DETECTED (NOT DETECT); BORDETELLA PERTUSSIS (PCR) NOT DETECTED (NOT DETECT); CHLAMYDIA PNEUMONIAE (PCR) NOT DETECTED (NOT DETECT); CORONAVIRUS 229E (PCR) NOT DETECTED (NOT DETECT); CORONAVIRUS HKU1 (PCR) NOT DETECTED (NOT DETECT); CORONAVIRUS NL63 (PCR) NOT DETECTED (NOT DETECT); CORONAVIRUS OC43 (PCR) NOT DETECTED (NOT DETECT); HUMAN METAPNEUMOVIRUS (PCR) NOT DETECTED (NOT DETECT); HUMAN RHINOVIRUS/ENTEROV (PCR) NOT DETECTED (NOT DETECT); INFLUENZA B (PCR) NOT DETECTED (NOT DETECT); MYCOPLASMA PNEUMONIAE (PCR) NOT DETECTED (NOT DETECT); PARAINFLUENZA VIRUS 1 (PCR) NOT DETECTED (NOT DETECT); PARAINFLUENZA VIRUS 2 (PCR) NOT DETECTED (NOT DETECT); PARAINFLUENZA VIRUS 3 (PCR) NOT DETECTED (NOT DETECT); PARAINFLUENZA VIRUS 4 (PCR) NOT DETECTED (NOT DETECT); RESPIRATORY SYNCYTIAL V (PCR) NOT DETECTED (NOT DETECT); SARS_COV_2 (PCR) NOT DETECTED (NOT DETECT)
[2021-06-15] MEDS ORDERED: ROCEPHIN 1 GM/50 ML D5W 1 GM/50 ML BAG IV SCH (04:00)
[2021-06-15] MEDS ORDERED: DUONEB NEB ONE (04:12)
[2021-06-15 04:23] LABS: ABG PH 7.18 (7.35-7.45)
[2021-06-15 04:24] LABS: BEecf 8.9 (-2.0-3.0); COHb 1.7 (0.5-1.5); HCO3 37.3 (21-28)
[2021-06-15 04:25] LABS: ABG O2 HGB 66.7 % (95-100); MetHb 0.9 (0-1.5); TCO2 40.4 (19-24); sO2 54.9 % (94-98); tHb 10.8 g/dl (11.7-17.4)
[2021-06-15] MEDS: DUONEB NEB SCH ×5 (04:29→23:00)
[2021-06-15 05:42] VITALS: BMI 33.7
[2021-06-15 05:46] LABS: BASOPHILS % (AUTO) 0.2 % (0.0-3.0); EOSINOPHILS % (AUTO) 0.2 % (0.0-7.0); HEMATOCRIT 30.7 % (37.0-47.0); HEMOGLOBIN 8.8 g/dl (12.0-16.0); IMMATURE GRANULOCYTE # (AUTO) 0.1 (0.0-1.0); IMMATURE GRANULOCYTE % (AUTO) 0.6 % (0.0-5.0); LYMPHOCYTES # (AUTO) 0.5 K/uL (0.60-3.4); LYMPHOCYTES % (AUTO) 3.8 (10.0-50.0); MEAN CORPUSCULAR HEMOGLOBIN 27.8 pg (27.0-31.0); MEAN CORPUSCULAR HGB CONC 28.7 (31.8-35.4); MEAN CORPUSCULAR VOLUME 96.8 fl (81.0-99.0); MONOCYTES # (AUTO) 0.5 K/uL (0.4-2.0); MONOCYTES % (AUTO) 3.7 (0-10); NEUTROPHILS % (AUTO) 91.5 % (42.2-75.2); PLATELET COUNT 240 10^3/uL (140-440); RDW COEFFICIENT OF VARIATION 15.2 % (11.6-14.8); RED BLOOD COUNT 3.17 10^6/ul (4.20-5.40)
[2021-06-15] MEDS: SODIUM CHLORIDE 1,000 ML IV SCH (05:52)
[2021-06-15] MEDS: KAYEXALATE SUSP RC ONE ×2 (05:57→10:57)
[2021-06-15 05:59] LABS: ANISOCYTOSIS NOT PRESENT (NOT PRESENT)
[2021-06-15 06:00] LABS: HYPOCHROMASIA OCCASIONAL (NOT PRESENT)
[2021-06-15 06:12] LABS: ALANINE AMINOTRANSFERASE 14.5 U/L (0-35); ALBUMIN 4.11 g/dL (3.5-5.0); ALKALINE PHOSPHATASE 110.6 U/L (53-141); ASPARTATE AMINO TRANSFERASE 27.4 U/L (14-36); BILIRUBIN,TOTAL 0.41 mg/dL (0.2-1.3); BLOOD UREA NITROGEN 23.2 mg/dL (7-17); CALCIUM 8.15 mg/dL (8.4-10.2); CARBON DIOXIDE 35.2 mmol/L (22-30.0); CHLORIDE 97.9 mmol/L (98-107); CREATININE 1.42 mg/dL (0.60-1.30); GLUCOSE 137.5 mg/dL (74-106); SODIUM 136.9 mmol/L (134.5-145); TOTAL PROTEIN 6.73 g/dL (6.3-8.2)
[2021-06-15 06:19] LABS: POTASSIUM 6.21 mmol/L (3.5-5.1)
[2021-06-15] MEDS ORDERED: CALCIUM GLUCONATE 10% IVP ONE (07:24)
[2021-06-15] MEDS ORDERED: DEXTROSE 50%-WATER ABBOJECT IVP ONE (07:25)
[2021-06-15] MEDS ORDERED: HUMULIN R IVP ONE (07:25)
[2021-06-15] MEDS: SOLU-MEDROL 125 MG IVP SCH ×3 (08:15→18:27)
[2021-06-15] MEDS ORDERED: NORVASC PO SCH (09:00)
[2021-06-15] MEDS ORDERED: SYMBICORT 80-4.5 MCG INHALER IH SCH (09:00)
[2021-06-15 09:31] LABS: CREATINE KINASE 177.4 U/L (30-135)
[2021-06-15 09:44] LABS: TROPONIN I < 0.012 ng/ml (0.0000-0.120)
[2021-06-15] MEDS: LOVENOX SUBCUT SCH (10:13)
[2021-06-15] MEDS: COZAAR PO SCH (10:14)
[2021-06-15] MEDS: SINGULAIR PO SCH (10:14)
[2021-06-15] MEDS: NEURONTIN PO SCH ×2 (10:14→20:49)
[2021-06-15] MEDS: PROZAC PO SCH (10:14)
[2021-06-15] MEDS: NORVASC PO SCH (10:14)
[2021-06-15] MEDS: ASPIRIN EC PO SCH (10:14)
[2021-06-15] MEDS: MAG-OX PO SCH (10:14)
[2021-06-15] MEDS: REQUIP PO SCH (10:15)
[2021-06-15] MEDS: SYMBICORT 160-4.5 MCG INHALER IH SCH ×2 (10:15→20:49)
[2021-06-15] MEDS: COREG PO SCH ×2 (10:15→17:36)
[2021-06-15] MEDS: PROTONIX PO SCH ×2 (10:15→17:36)
[2021-06-15] MEDS: FLONASE NAS SCH (10:15)
[2021-06-15] MEDS: SPIRIVA IH SCH (10:16)
[2021-06-15] MEDS ORDERED: LASIX IVP ONE (10:51)
[2021-06-15 10:55] LABS: ABG PH 7.27 (7.35-7.45)
[2021-06-15 10:56] LABS: HCO3 34.9 (21-28); TCO2 37.2 (19-24); sO2 80.2 % (94-98)
[2021-06-15 10:57] LABS: ABG O2 HGB 86.2 % (95-100); tHb 9.5 g/dl (11.7-17.4)
--- NOTE | 2021-06-15 11:01 | PCM.PROG ---
Date Seen by Provider: 06/15/21 Time Seen by Provider: 10:56 Subjective: pt retaining CO2 on vapotherm, has improved mentation with home dose of 3 liters O2 NC, d/w daughter feeding the pt. Will check K+ after treating 6.2 level w/ insulin and D50 d/w daughter and will not use bipap at this time as pCO2 of 76 is near pt baseline fluid retention and bnp of 1010 will give single dose of lasix 20mg ivp Objective: Vitals: T=97.7 F, P=64, R=20, YH=596/68, SPO2=88 HEENT: []conjunctiva clear Neck: []supple Lungs: [] mild expiratory wheezes bilat CVS: []RRR Abdomen: []soft and nontender Extremities: []alfonso, +edema Neurological: []alert and conversant Skin: []warm and dry Lab/Tests/Diagnostic Imaging: [] Plan: monitor for CO2 retention, discontinue potassium supplement, recheck labs care to Dr Basurto at 19:00
[2021-06-15 12:11] LABS: BILIRUBIN,URINE Negative (NEGATIVE); CLARITY,URINE Clear (CLEAR); COLOR,URINE Yellow (YELLOW); GLUCOSE, URINE (UA) Negative (NEGATIVE); KETONES,URINE Negative (NEGATIVE); LEUKOCYTE ESTERASE ,URINE Negative (NEGATIVE); NITRITE,URINE Negative (NEGATIVE); PH,URINE 5.5 (5-9); PROTEIN,URINE Negative (NEGATIVE); URINE, BLOOD Negative (NEGATIVE); UROBILINOGEN,URINE 0.2 (0.2)
[2021-06-15 17:57] LABS: CREATINE KINASE 172.1 U/L (30-135)
[2021-06-15 17:58] LABS: ALANINE AMINOTRANSFERASE 17.8 U/L (0-35); ALBUMIN 4.06 g/dL (3.5-5.0); ALKALINE PHOSPHATASE 107.5 U/L (53-141); ASPARTATE AMINO TRANSFERASE 29.8 U/L (14-36); BILIRUBIN,TOTAL 0.26 mg/dL (0.2-1.3); BLOOD UREA NITROGEN 26.7 mg/dL (7-17); CALCIUM 8.42 mg/dL (8.4-10.2); CARBON DIOXIDE 32.2 mmol/L (22-30.0); CHLORIDE 97.5 mmol/L (98-107); CREATININE 1.25 mg/dL (0.60-1.30); GLUCOSE 189.7 mg/dL (74-106); POTASSIUM 5.42 mmol/L (3.5-5.1); SODIUM 134.7 mmol/L (134.5-145); TOTAL PROTEIN 6.58 g/dL (6.3-8.2)
[2021-06-15 18:10] LABS: TROPONIN I < 0.012 ng/ml (0.0000-0.120)
[2021-06-15] MEDS: ROCEPHIN 1 GM/50 ML D5W 1 GM/50 ML BAG IV SCH (20:49)
[2021-06-16] MEDS: SOLU-MEDROL 125 MG IVP SCH ×5 (00:20→23:13)
[2021-06-16] MEDS: PERCOCET 7.5-325 PO PRN ×2 (01:41→17:00)
[2021-06-16] MEDS: DUONEB NEB SCH ×6 (02:30→21:05)
[2021-06-16 05:44] LABS: BASOPHILS % (AUTO) 0.1 % (0.0-3.0); HEMATOCRIT 28.5 % (37.0-47.0); HEMOGLOBIN 8.4 g/dl (12.0-16.0); IMMATURE GRANULOCYTE # (AUTO) 0.1 (0.0-1.0); IMMATURE GRANULOCYTE % (AUTO) 1.1 % (0.0-5.0); LYMPHOCYTES # (AUTO) 0.6 K/uL (0.60-3.4); LYMPHOCYTES % (AUTO) 4.7 (10.0-50.0); MEAN CORPUSCULAR HEMOGLOBIN 27.8 pg (27.0-31.0); MEAN CORPUSCULAR HGB CONC 29.5 (31.8-35.4); MEAN CORPUSCULAR VOLUME 94.4 fl (81.0-99.0); MONOCYTES # (AUTO) 0.1 K/uL (0.4-2.0); NEUTROPHILS # (AUTO) 11.2 K/ul (2.0-6.9); NEUTROPHILS % (AUTO) 93.1 % (42.2-75.2); PLATELET COUNT 242 10^3/uL (140-440); RDW COEFFICIENT OF VARIATION 15.1 % (11.6-14.8); RED BLOOD COUNT 3.02 10^6/ul (4.20-5.40); WHITE BLOOD COUNT 12.03 K/ul (4.6-10.2)
[2021-06-16 06:04] LABS: ALANINE AMINOTRANSFERASE 17.6 U/L (0-35); ALBUMIN 4.02 g/dL (3.5-5.0); ALKALINE PHOSPHATASE 100.9 U/L (53-141); ASPARTATE AMINO TRANSFERASE 25.4 U/L (14-36); BILIRUBIN,TOTAL 0.25 mg/dL (0.2-1.3); BLOOD UREA NITROGEN 26.6 mg/dL (7-17); CALCIUM 8.44 mg/dL (8.4-10.2); CARBON DIOXIDE 31.7 mmol/L (22-30.0); CHLORIDE 98.6 mmol/L (98-107); CREATININE 1.21 mg/dL (0.60-1.30); GLUCOSE 160.2 mg/dL (74-106); POTASSIUM 5.17 mmol/L (3.5-5.1); SODIUM 136.4 mmol/L (134.5-145); TOTAL PROTEIN 6.6 g/dL (6.3-8.2)
[2021-06-16] MEDS: PROTONIX PO SCH ×2 (06:20→17:00)
[2021-06-16 07:02] LABS: ABG PH 7.34 (7.35-7.45)
[2021-06-16 07:03] LABS: ABG O2 HGB 82.8 % (95-100); COHb 2.4 (0.5-1.5); HCO3 31.8 (21-28); MetHb 0.5 (0-1.5); TCO2 33.6 (19-24); sO2 80.7 % (94-98); tHb 8.6 g/dl (11.7-17.4)
[2021-06-16] MEDS: SODIUM CHLORIDE 1,000 ML IV SCH ×4 (07:06→20:53)
[2021-06-16] MEDS: SINGULAIR PO SCH (08:55)
[2021-06-16] MEDS: ZITHROMAX PO SCH (08:55)
[2021-06-16] MEDS: REQUIP PO SCH (08:56)
[2021-06-16] MEDS: PROZAC PO SCH (08:56)
[2021-06-16] MEDS: NORVASC PO SCH (08:56)
[2021-06-16] MEDS: COZAAR PO SCH (08:56)
[2021-06-16] MEDS: NEURONTIN PO SCH ×2 (08:56→20:52)
[2021-06-16] MEDS: MAG-OX PO SCH (08:56)
[2021-06-16] MEDS: ASPIRIN EC PO SCH (08:56)
[2021-06-16] MEDS: COREG PO SCH ×2 (08:57→17:01)
[2021-06-16] MEDS: SYMBICORT 160-4.5 MCG INHALER IH SCH ×2 (09:01→20:53)
[2021-06-16] MEDS: FLONASE NAS SCH (09:01)
[2021-06-16] MEDS: SPIRIVA IH SCH (09:01)
[2021-06-16] MEDS: LOVENOX SUBCUT SCH (09:13)
--- NOTE | 2021-06-16 11:41 | PCM.PROG ---
Date Seen by Provider: 06/16/21 Time Seen by Provider: 11:36 Subjective: pt improved, activity level good, abg to target permissive hypoxemia to guard against severe hypercarbia and depressed respiratory drive. hyperkalemia responded to treatment. pt appetite improved. Objective: Vitals: T=97.7 F, P=86, R=24, AT=621/62, SPO2=92 HEENT: []conjunctiva clear Neck: []supple Lungs: [] slight wheeze bilateral with effort CVS: []RRR Abdomen: []soft and nontender Extremities: []warm and dry Neurological: []alert Skin: []pink Lab/Tests/Diagnostic Imaging: [] K+ 5.1, wbc 12.0, Hb 8.4 (1) Acute exacerbation of chronic obstructive pulmonary disease: Status: Acute Code(s): J44.1 - Chronic obstructive pulmonary disease with (acute) exacerbation SNOMED Code(s): 081180083 Plan: continue oxygen therapy at 3 to 4 liters NC, monitor activity level, permit O2sat in low 90[address] Basurto at 19:00
[2021-06-16] MEDS: ROCEPHIN 1 GM/50 ML D5W 1 GM/50 ML BAG IV SCH (20:53)
[2021-06-17] MEDS: DUONEB NEB SCH ×6 (01:00→21:30)
[2021-06-17] MEDS: PERCOCET 7.5-325 PO PRN (02:27)
[2021-06-17] MEDS: SODIUM CHLORIDE 1,000 ML IV SCH ×2 (02:27→17:24)
[2021-06-17 05:24] LABS: ABG O2 HGB 95.7 % (95-100); ABG PH 7.31 (7.35-7.45); BEecf 3.9 (-2.0-3.0); COHb 2.7 (0.5-1.5); HCO3 30.2 (21-28); sO2 99.2 % (94-98); tHb 10.3 g/dl (11.7-17.4)
[2021-06-17 05:57] LABS: BASOPHILS % (AUTO) 0.1 % (0.0-3.0); HEMATOCRIT 28.5 % (37.0-47.0); HEMOGLOBIN 8.5 g/dl (12.0-16.0); IMMATURE GRANULOCYTE # (AUTO) 0.1 (0.0-1.0); IMMATURE GRANULOCYTE % (AUTO) 1.1 % (0.0-5.0); LYMPHOCYTES # (AUTO) 0.4 K/uL (0.60-3.4); LYMPHOCYTES % (AUTO) 4.6 (10.0-50.0); MEAN CORPUSCULAR HEMOGLOBIN 27.8 pg (27.0-31.0); MEAN CORPUSCULAR HGB CONC 29.8 (31.8-35.4); MEAN CORPUSCULAR VOLUME 93.1 fl (81.0-99.0); MONOCYTES # (AUTO) 0.2 K/uL (0.4-2.0); MONOCYTES % (AUTO) 1.6 (0-10); NEUTROPHILS # (AUTO) 8.6 K/ul (2.0-6.9); NEUTROPHILS % (AUTO) 92.6 % (42.2-75.2); PLATELET COUNT 256 10^3/uL (140-440); RDW COEFFICIENT OF VARIATION 15.3 % (11.6-14.8); RED BLOOD COUNT 3.06 10^6/ul (4.20-5.40); WHITE BLOOD COUNT 9.26 K/ul (4.6-10.2)
[2021-06-17] MEDS: SOLU-MEDROL 125 MG IVP SCH ×3 (06:03→17:25)
[2021-06-17] MEDS: PROTONIX PO SCH ×2 (06:03→17:25)
[2021-06-17 06:08] LABS: BLOOD UREA NITROGEN 33.9 mg/dL (7-17); CALCIUM 8.38 mg/dL (8.4-10.2); CARBON DIOXIDE 30.8 mmol/L (22-30.0); CREATININE 1.1 mg/dL (0.60-1.30); GLUCOSE 146.4 mg/dL (74-106); POTASSIUM 5.41 mmol/L (3.5-5.1); SODIUM 134.5 mmol/L (134.5-145)
[2021-06-17] MEDS ORDERED: LASIX IVP ONE (07:40)
--- NOTE | 2021-06-17 08:07 | PCM.PROG ---
Date Seen by Provider: 06/17/21 Time Seen by Provider: 07:40 Subjective: Pt is feeling slightly better today but still with SOB. She has had some increase swelling to her upper extremities without any swelling to her lower extremities. Has been weened to 2.5L O2 NC which is her home level. No fevers overnight Objective: Vitals: T=96.8 F, P=58, R=16, UE=438/63, SPO2=92 HEENT: PERRL, EOMI Neck: supple, NT Lungs: Occ exp wheezes CVS: RRR Abdomen: soft, NT Extremities: 1+ edema to B UE, no edema to LE Neurological: A+Ox3, no acute findings Lab/Tests/Diagnostic Imaging: Hb 8.5 which is stable, CO2 of 31. K+ 5.4 (1) Acute exacerbation of chronic obstructive pulmonary disease: Status: Acute Code(s): J44.1 - Chronic obstructive pulmonary disease with (acute) exacerbation SNOMED Code(s): 351683689 (2) Hyperkalemia: Status: Acute Code(s): E87.5 - Hyperkalemia SNOMED Code(s): 42156542 Plan: 1: COPD/Pneumonia: Continue Ceftriaxone/Zithromax. Cont solumedrol. Cont O2 at home O2 levels. 2. Hyperkalemia: Slightly increased today but improving overall. Will continue to monitor and give a dose of Lasix today. 3. Edema to UE: Will give a dose of lasix and monitor BNP in AM.
[2021-06-17] MEDS: NEURONTIN PO SCH ×2 (08:40→21:20)
[2021-06-17] MEDS: NORVASC PO SCH (08:40)
[2021-06-17] MEDS: COZAAR PO SCH (08:41)
[2021-06-17] MEDS: MAG-OX PO SCH (08:41)
[2021-06-17] MEDS: ZITHROMAX PO SCH (08:41)
[2021-06-17] MEDS: ASPIRIN EC PO SCH (08:41)
[2021-06-17] MEDS: PROZAC PO SCH (08:41)
[2021-06-17] MEDS: SINGULAIR PO SCH (08:41)
[2021-06-17] MEDS: COREG PO SCH ×2 (08:41→17:25)
[2021-06-17] MEDS: SYMBICORT 160-4.5 MCG INHALER IH SCH ×2 (08:42→21:21)
[2021-06-17] MEDS: FLONASE NAS SCH (08:42)
[2021-06-17] MEDS: SPIRIVA IH SCH (08:42)
[2021-06-17] MEDS: LOVENOX SUBCUT SCH (08:45)
[2021-06-17] MEDS: REQUIP PO SCH (21:21)
[2021-06-17] MEDS: ROCEPHIN 1 GM/50 ML D5W 1 GM/50 ML BAG IV SCH (21:21)
[2021-06-18] MEDS: PERCOCET 7.5-325 PO PRN ×3 (00:41→21:09)
[2021-06-18] MEDS: DUONEB NEB SCH ×6 (01:19→21:00)
[2021-06-18] MEDS: SOLU-MEDROL 125 MG IVP SCH ×5 (02:33→23:49)
[2021-06-18] MEDS: PROTONIX PO SCH ×2 (05:41→17:14)
[2021-06-18 06:34] LABS: HEMATOCRIT 29.6 % (37.0-47.0); HEMOGLOBIN 8.8 g/dl (12.0-16.0); IMMATURE GRANULOCYTE # (AUTO) 0.1 (0.0-1.0); IMMATURE GRANULOCYTE % (AUTO) 1.5 % (0.0-5.0); LYMPHOCYTES # (AUTO) 0.3 K/uL (0.60-3.4); LYMPHOCYTES % (AUTO) 4.2 (10.0-50.0); MEAN CORPUSCULAR HEMOGLOBIN 27.2 pg (27.0-31.0); MEAN CORPUSCULAR HGB CONC 29.7 (31.8-35.4); MEAN CORPUSCULAR VOLUME 91.6 fl (81.0-99.0); MONOCYTES # (AUTO) 0.1 K/uL (0.4-2.0); MONOCYTES % (AUTO) 1.2 (0-10); NEUTROPHILS # (AUTO) 6.2 K/ul (2.0-6.9); NEUTROPHILS % (AUTO) 93.1 % (42.2-75.2); PLATELET COUNT 278 10^3/uL (140-440); RDW COEFFICIENT OF VARIATION 15.1 % (11.6-14.8); RED BLOOD COUNT 3.23 10^6/ul (4.20-5.40); WHITE BLOOD COUNT 6.66 K/ul (4.6-10.2)
[2021-06-18 06:47] LABS: ALANINE AMINOTRANSFERASE 16.6 U/L (0-35); ALBUMIN 3.87 g/dL (3.5-5.0); ALKALINE PHOSPHATASE 84.4 U/L (53-141); ASPARTATE AMINO TRANSFERASE 23.2 U/L (14-36); BILIRUBIN,TOTAL 0.22 mg/dL (0.2-1.3); BLOOD UREA NITROGEN 33.3 mg/dL (7-17); CALCIUM 8.16 mg/dL (8.4-10.2); CARBON DIOXIDE 30.9 mmol/L (22-30.0); CHLORIDE 98.8 mmol/L (98-107); CREATININE 1.07 mg/dL (0.60-1.30); GLUCOSE 147.9 mg/dL (74-106); POTASSIUM 4.78 mmol/L (3.5-5.1); TOTAL PROTEIN 6.41 g/dL (6.3-8.2)
[2021-06-18] MEDS: SODIUM CHLORIDE 1,000 ML IV SCH ×2 (07:26→10:38)
[2021-06-18] MEDS: ASPIRIN EC PO SCH (08:44)
[2021-06-18] MEDS: SYMBICORT 160-4.5 MCG INHALER IH SCH ×2 (08:44→20:55)
[2021-06-18] MEDS: COZAAR PO SCH (08:44)
[2021-06-18] MEDS: SPIRIVA IH SCH (08:44)
[2021-06-18] MEDS: FLONASE NAS SCH (08:44)
[2021-06-18] MEDS: NORVASC PO SCH (08:45)
[2021-06-18] MEDS: ZITHROMAX PO SCH (08:45)
[2021-06-18] MEDS: COREG PO SCH ×2 (08:45→17:14)
[2021-06-18] MEDS: PROZAC PO SCH (08:45)
[2021-06-18] MEDS: SINGULAIR PO SCH (08:45)
[2021-06-18] MEDS: MAG-OX PO SCH (08:45)
[2021-06-18] MEDS: NEURONTIN PO SCH ×2 (08:45→20:55)
[2021-06-18] MEDS: LOVENOX SUBCUT SCH (08:46)
[2021-06-18] MEDS ORDERED: LASIX IVP ONE (09:57)
--- NOTE | 2021-06-18 11:29 | CT ---
EXAM: CT chest without contrast. HISTORY: Shortness of breath. COMPARISON: Radiograph 06/15/2021. CT 01/09/2021. TECHNIQUE: Multiple axial images of the chest were obtained without intravenous contrast. Images we re reformatted in the sagittal and coronal planes. FINDINGS: There is edema in the right anterior chest, breast and axilla. Nonenlarged right axillary lymph nodes present. The heart is enlarged. Coronary artery aortic calcifications present. No pericardial effusion. Small right and tiny left pleural effusions are present. There is some loculated fluid along the rig ht major fissure. Ground-glass opacities noted in the right lower lobe and the dependent aspects of the upper and middle lobes. Moderate to severe emphysema. No pneumothorax. Large hiatal hernia. No acute abnormality in the upper abdomen. Left total reverse shoulder arthroplasty hardware. Old rib fractures. Kyphoplasty changes at L1. O ld distal right clavicular fracture. IMPRESSION: 1. Small right and tiny left pleural effusions. Dependent opacities in the right lung could represe nt atelectasis or pneumonia. 2. Diffuse subcutaneous edema in the right anterior chest, axilla and breast which could represent c ellulitis. Correlate with physical exam. Consider mammography as warranted. 3. Moderate to severe emphysema. 4. Cardiomegaly and atherosclerosis. 5. Large hiatal hernia. All CT scans are performed using dose optimization techniques as appropriate to the performed exam an d include at least one of the following: Automated exposure control, adjustment of the mA and/or kV according t o size, and the use of iterative reconstruction technique.
--- NOTE | 2021-06-18 16:13 | PCM.PROG ---
Date Seen by Provider: 06/18/21 Time Seen by Provider: 11:46 Subjective: Pt has the dementia. She reported no acute SOB or chest pain. 3. Swollen upper limbs, on-going. Objective: Vitals: T=97.2 F, P=65, R=24, ZO=489/75, SPO2=92 HEENT: []No stridor. Oropharynx no acute abnormality. Neck: []supple, no acute swelling or edema. Lungs: []mild generalized wheezes, rhonchi and posterior crackles. no acute resp distress. CVS: []rrr Abdomen: []benign. Extremities: []mild bilateral upper limb edema. no acute neuro vascular deficit. Neurological: []evident memory impairment. conversation was appropriate. Skin: []no acute abnormality. Lab/Tests/Diagnostic Imaging: [] (1) Acute exacerbation of chronic obstructive pulmonary disease: Status: Acute Code(s): J44.1 - Chronic obstructive pulmonary disease with (acute) exacerbation SNOMED Code(s): 039621026 (2) Hyperkalemia: Status: Acute Code(s): E87.5 - Hyperkalemia SNOMED Code(s): 89688204 (3) Edema of both upper extremities: Status: Acute Code(s): R60.0 - Localized edema SNOMED Code(s): 906840964 (4) Mild cognitive impairment with memory loss: Status: Acute Code(s): G31.84 - Mild cognitive impairment, so stated SNOMED Code(s): 654430819 Plan: 1. Increased Lasix. 2. Continue Tx regimen for COPD and pneumonia. 3. work-up the upper limb edema.
[2021-06-18] MEDS: REQUIP PO SCH (20:55)
[2021-06-18] MEDS: ROCEPHIN 1 GM/50 ML D5W 1 GM/50 ML BAG IV SCH (20:55)
[2021-06-19] MEDS: DUONEB NEB SCH ×6 (01:06→21:10)
[2021-06-19] MEDS: SODIUM CHLORIDE 1,000 ML IV SCH ×2 (01:21→16:09)
[2021-06-19] MEDS: SOLU-MEDROL 125 MG IVP SCH ×3 (05:16→17:54)
[2021-06-19 05:41] LABS: BASOPHILS % (AUTO) 0.2 % (0.0-3.0); HEMOGLOBIN 8.9 g/dl (12.0-16.0); IMMATURE GRANULOCYTE # (AUTO) 0.1 (0.0-1.0); IMMATURE GRANULOCYTE % (AUTO) 1.6 % (0.0-5.0); LYMPHOCYTES # (AUTO) 0.3 K/uL (0.60-3.4); LYMPHOCYTES % (AUTO) 5.3 (10.0-50.0); MEAN CORPUSCULAR HEMOGLOBIN 27.8 pg (27.0-31.0); MEAN CORPUSCULAR HGB CONC 30.7 (31.8-35.4); MEAN CORPUSCULAR VOLUME 90.6 fl (81.0-99.0); MONOCYTES # (AUTO) 0.1 K/uL (0.4-2.0); MONOCYTES % (AUTO) 1.7 (0-10); NEUTROPHILS # (AUTO) 5.3 K/ul (2.0-6.9); NEUTROPHILS % (AUTO) 91.2 % (42.2-75.2); PLATELET COUNT 268 10^3/uL (140-440); RDW COEFFICIENT OF VARIATION 14.6 % (11.6-14.8)
[2021-06-19] MEDS: PROTONIX PO SCH ×2 (05:42→17:25)
[2021-06-19 05:49] LABS: ALBUMIN 3.74 g/dL (3.5-5.0); ALKALINE PHOSPHATASE 69.5 U/L (53-141); ASPARTATE AMINO TRANSFERASE 27.2 U/L (14-36); BILIRUBIN,TOTAL 0.29 mg/dL (0.2-1.3); BLOOD UREA NITROGEN 36.4 mg/dL (7-17); CALCIUM 7.96 mg/dL (8.4-10.2); CARBON DIOXIDE 31.7 mmol/L (22-30.0); CHLORIDE 98.1 mmol/L (98-107); CREATININE 1.09 mg/dL (0.60-1.30); GLUCOSE 152.5 mg/dL (74-106); POTASSIUM 4.78 mmol/L (3.5-5.1); SODIUM 133.7 mmol/L (134.5-145); TOTAL PROTEIN 6.31 g/dL (6.3-8.2)
[2021-06-19] MEDS: PERCOCET 7.5-325 PO PRN ×2 (06:11→15:55)
[2021-06-19] MEDS ORDERED: ZITHROMAX PO SCH (09:00)
[2021-06-19] MEDS: COZAAR PO SCH (09:07)
[2021-06-19] MEDS: LOVENOX SUBCUT SCH (09:07)
[2021-06-19] MEDS: NEURONTIN PO SCH ×2 (09:08→20:37)
[2021-06-19] MEDS: ASPIRIN EC PO SCH (09:08)
[2021-06-19] MEDS: PROZAC PO SCH (09:08)
[2021-06-19] MEDS: MAG-OX PO SCH (09:08)
[2021-06-19] MEDS: ZITHROMAX PO SCH (09:08)
[2021-06-19] MEDS: NORVASC PO SCH (09:08)
[2021-06-19] MEDS: SINGULAIR PO SCH (09:08)
[2021-06-19] MEDS: COREG PO SCH ×2 (09:09→17:25)
--- NOTE | 2021-06-19 09:17 | PCM.PROG ---
Date Seen by Provider: 06/19/21 Time Seen by Provider: 09:12 Subjective: pt arouses to voice, alert and oriented, concern for upper right extremity and chest wall edema, ct advises possible cellulitis and mammogram, I and O fairly balanced, will not start continuous lasix order at this time, will start Vanc and Pharmacy dosing Objective: Vitals: T=97.6 F, P=69, R=18, PI=176/75, SPO2=90 HEENT: []conjunctiva clear Neck: []supple Lungs: [] clear CVS: []RRR Abdomen: []soft and nontender Extremities: []warm and dry Neurological: []alert and oriented Skin: []pink Lab/Tests/Diagnostic Imaging: [] wbc not elevated, K+ 4.7, HCO3 31, O2sat on 3liters 91% (1) Acute exacerbation of chronic obstructive pulmonary disease: Status: Acute Code(s): J44.1 - Chronic obstructive pulmonary disease with (acute) exacerbation SNOMED Code(s): 668757911 (2) Hyperkalemia: Status: Acute Code(s): E87.5 - Hyperkalemia SNOMED Code(s): 91159461 (3) Edema of both upper extremities: Status: Acute Code(s): R60.0 - Localized edema SNOMED Code(s): 738865668 (4) Mild cognitive impairment with memory loss: Status: Acute Code(s): G31.84 - Mild cognitive impairment, so stated SNOMED Code(s): 511777694 Plan: medical regimen changes as in subjective report care to Dr Basurto at 19:00
[2021-06-19] MEDS: FLONASE NAS SCH (09:19)
[2021-06-19] MEDS: SYMBICORT 160-4.5 MCG INHALER IH SCH ×2 (09:19→20:37)
[2021-06-19] MEDS: SPIRIVA IH SCH (09:19)
[2021-06-19] MEDS ORDERED: VANCOMYCIN 1 GRAM/200 ML PREMIX 1 GM/200 ML BAG IV ONE (10:00)
[2021-06-19] MEDS: VANCOMYCIN 1 GRAM/200 ML PREMIX 1 GM/200 ML BAG IV SCH (12:10)
[2021-06-19] MEDS: REQUIP PO SCH (20:36)
[2021-06-19] MEDS: ROCEPHIN 1 GM/50 ML D5W 1 GM/50 ML BAG IV SCH (20:37)
[2021-06-20] MEDS: SOLU-MEDROL 125 MG IVP SCH ×5 (00:04→23:19)
[2021-06-20] MEDS: DUONEB NEB SCH ×6 (01:01→22:45)
[2021-06-20] MEDS: PERCOCET 7.5-325 PO PRN ×3 (02:51→18:34)
[2021-06-20 05:05] LABS: HEMATOCRIT 27.9 % (37.0-47.0); HEMOGLOBIN 8.7 g/dl (12.0-16.0); IMMATURE GRANULOCYTE # (AUTO) 0.1 (0.0-1.0); IMMATURE GRANULOCYTE % (AUTO) 1.4 % (0.0-5.0); LYMPHOCYTES # (AUTO) 0.3 K/uL (0.60-3.4); LYMPHOCYTES % (AUTO) 3.8 (10.0-50.0); MEAN CORPUSCULAR HEMOGLOBIN 27.9 pg (27.0-31.0); MEAN CORPUSCULAR HGB CONC 31.2 (31.8-35.4); MEAN CORPUSCULAR VOLUME 89.4 fl (81.0-99.0); MONOCYTES # (AUTO) 0.1 K/uL (0.4-2.0); MONOCYTES % (AUTO) 1.4 (0-10); NEUTROPHILS # (AUTO) 7.9 K/ul (2.0-6.9); NEUTROPHILS % (AUTO) 93.4 % (42.2-75.2); PLATELET COUNT 267 10^3/uL (140-440); RDW COEFFICIENT OF VARIATION 14.6 % (11.6-14.8); RED BLOOD COUNT 3.12 10^6/ul (4.20-5.40); WHITE BLOOD COUNT 8.48 K/ul (4.6-10.2)
[2021-06-20 05:17] LABS: ALANINE AMINOTRANSFERASE 16.9 U/L (0-35); ALBUMIN 3.31 g/dL (3.5-5.0); ALKALINE PHOSPHATASE 67.8 U/L (53-141); ASPARTATE AMINO TRANSFERASE 25.3 U/L (14-36); BILIRUBIN,TOTAL 0.22 mg/dL (0.2-1.3); BLOOD UREA NITROGEN 30.2 mg/dL (7-17); CALCIUM 7.63 mg/dL (8.4-10.2); CARBON DIOXIDE 30.1 mmol/L (22-30.0); CHLORIDE 100.2 mmol/L (98-107); CREATININE 1.08 mg/dL (0.60-1.30); GLUCOSE 164.4 mg/dL (74-106); POTASSIUM 4.48 mmol/L (3.5-5.1); TOTAL PROTEIN 5.58 g/dL (6.3-8.2)
[2021-06-20] MEDS: PROTONIX PO SCH ×2 (05:47→16:49)
[2021-06-20] MEDS: SODIUM CHLORIDE 1,000 ML IV SCH (08:01)
[2021-06-20] MEDS: COREG PO SCH ×2 (10:17→16:49)
[2021-06-20] MEDS: ASPIRIN EC PO SCH (10:17)
[2021-06-20] MEDS: COZAAR PO SCH (10:18)
[2021-06-20] MEDS: LOVENOX SUBCUT SCH (10:19)
[2021-06-20] MEDS: FLONASE NAS SCH (10:19)
--- NOTE | 2021-06-20 10:20 | PCM.PROG ---
Date Seen by Provider: 06/20/21 Time Seen by Provider: 10:16 Subjective: mentation good, stable, edema of right arm still present, Vanc for possible cellulitis has not appreciably effected this, will order ct chest w/ contrast to exclude superior vena cava syndrome, mammogram as rec by Rad can only be done as an outpatient Objective: Vitals: T=98.2 F, P=68, R=22, ZA=259/74, SPO2=96 HEENT: []conjunctiva clear Neck: []supple Lungs: [] end expiratory wheeze stable CVS: []RRR Abdomen: []soft and nontender Extremities: []edema principally of right UE Neurological: []alert and oriented Skin: []pink Lab/Tests/Diagnostic Imaging: [] (1) Acute exacerbation of chronic obstructive pulmonary disease: Status: Acute Code(s): J44.1 - Chronic obstructive pulmonary disease with (acute) exacerbation SNOMED Code(s): 191246693 (2) Hyperkalemia: Status: Acute Code(s): E87.5 - Hyperkalemia SNOMED Code(s): 05737075 (3) Edema of both upper extremities: Status: Acute Code(s): R60.0 - Localized edema SNOMED Code(s): 552100403 (4) Mild cognitive impairment with memory loss: Status: Acute Code(s): G31.84 - Mild cognitive impairment, so stated SNOMED Code(s): 194674360 Plan: ct chest to r/o svc syndrome care to Dr Basurto at 19:00 continue albuterol and oxygen therapy
[2021-06-20] MEDS: MAG-OX PO SCH (10:21)
[2021-06-20] MEDS: NEURONTIN PO SCH ×2 (10:21→20:27)
[2021-06-20] MEDS: NORVASC PO SCH (10:22)
[2021-06-20] MEDS: PROZAC PO SCH (10:23)
[2021-06-20] MEDS: SINGULAIR PO SCH (10:23)
[2021-06-20] MEDS: SYMBICORT 160-4.5 MCG INHALER IH SCH ×2 (10:24→20:27)
[2021-06-20] MEDS: SPIRIVA IH SCH (10:24)
[2021-06-20] MEDS: VANCOMYCIN 1 GRAM/200 ML PREMIX 1 GM/200 ML BAG IV SCH (10:38)
--- NOTE | 2021-06-20 13:00 | CT ---
EXAM: CT scan of the chest with contrast HISTORY: Superior vena cava syndrome TECHNIQUE: Imaging of the chest was performed following the intravenous administration of contrast. 5 mm thin axial images and coronal and sagittal reconstructions were obtained. Comparison 06/18/2021. FINDINGS: The heart is normal size. No mediastinal masses are seen. No definite masses are seen al ivan the superior vena cava. There is atherosclerotic disease of the thoracic aorta. There is a smal l hiatal hernia. Small bilateral pleural effusions are seen. There is diffuse edema seen within the soft tissues of the right breast. The findings appear similar when compared to previous study. No obvious fluid collections are seen within the right breast. IMPRESSION: No acute abnormalities are seen within the mediastinum. Small bilateral pleural effusions are seen, right greater than left. Diffuse edema seen within the soft tissues of the right breast. The etiology is clear. The findings were also seen on previous examination. Hiatal hernia. All CT scans are performed using dose optimization techniques as appropriate to the performed exam an d include at least one of the following: Automated exposure control, adjustment of the mA and/or kV according t o size, and the use of iterative reconstruction technique.
[2021-06-20] MEDS: REQUIP PO SCH (19:44)
[2021-06-20] MEDS: ROCEPHIN 1 GM/50 ML D5W 1 GM/50 ML BAG IV SCH (20:28)
[2021-06-21] MEDS: SODIUM CHLORIDE 1,000 ML IV SCH ×2 (00:59→14:30)
[2021-06-21] MEDS: DUONEB NEB SCH ×6 (01:15→22:00)
[2021-06-21] MEDS: PERCOCET 7.5-325 PO PRN ×3 (04:11→19:32)
[2021-06-21] MEDS: PROTONIX PO SCH ×2 (05:57→16:55)
[2021-06-21] MEDS: SOLU-MEDROL 125 MG IVP SCH ×3 (06:27→19:25)
[2021-06-21] MEDS: SINGULAIR PO SCH (08:20)
[2021-06-21] MEDS: ASPIRIN EC PO SCH (08:20)
[2021-06-21] MEDS: NEURONTIN PO SCH ×2 (08:20→20:17)
[2021-06-21] MEDS: MAG-OX PO SCH (08:20)
[2021-06-21] MEDS: NORVASC PO SCH (08:21)
[2021-06-21] MEDS: COREG PO SCH ×2 (08:21→16:55)
[2021-06-21] MEDS: COZAAR PO SCH (08:21)
[2021-06-21] MEDS: PROZAC PO SCH (08:21)
[2021-06-21] MEDS: SYMBICORT 160-4.5 MCG INHALER IH SCH ×2 (08:22→20:17)
[2021-06-21] MEDS: FLONASE NAS SCH (08:23)
[2021-06-21] MEDS: SPIRIVA IH SCH (08:23)
[2021-06-21] MEDS: LOVENOX SUBCUT SCH (08:33)
[2021-06-21] MEDS: VANCOMYCIN 1 GRAM/200 ML PREMIX 1 GM/200 ML BAG IV SCH (09:12)
--- NOTE | 2021-06-21 09:53 | ECHO2D ---
Date of Exam: 06/19/2021 Ordering Physician: DR. HARESH MAI Room #: 108 Reason for Echo: SOB, ELEVATED BNP, HYPERTENSION M-Mode Normal Adult Results LV Dimensions Normal Adult Results AoV Opening excursions >1.6 >1.6 LVEDD-base- 3.5-5.8 5.4 Ao root dimensions 2.0-3.7 3.6 LVESD-base- 3.1-4.6 L. Atrium dimensions 1.9-3.8 4.8 Post. Wall thickness 0.8-1.1 1.1 IV septum (thickness) 0.7-1.2 1.3 Post. Wall excursion 0.72-1.3 NORMAL Septal motion NORMAL Systolic motion R. Ventricular cavity 1.5-2.0 3.7 LVEF 60% 52% Paradoxical septal wall motion NORMAL 2-D : ENLARGED LEFT ATRIAL CAVITY AND RIGHT VENTRICLE CAVITY, NORMAL LEFT VENTRICLE CONTRACTILITY--AND NORMAL LEFT VENTRICLE SIZE, NO EFFUSION, NO THROMBUS, VALVES--NORMAL M-MODE: MV: NORMAL AV: NORMAL TV: NORMAL PV: CHAMBER SIZE: ENLARGED LEFT ATRIAL AND RIGHT VENTRICLE CAVITIES WALL MOTION: NORMAL PERICARDIUM: NORMAL INTERPRETATION: 1. 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 ENLARGED RIGHT VENTRICLE CAVITY 3. NORMAL LEFT VENTRICLE CONTRACTILITY 4. NORMAL VALVES MTDD
--- NOTE | 2021-06-21 14:47 | RS.PTINEVL ---
Subjective - Patient information Date of Evaluation: 06/21/21 Date of Arrival on Unit: 06/15/21 Admitted From:: Home Diagnosis: COPD exacerbation, respiratory failure, hypoxemia Usual Living Arrangement: With Others Living Arrangement Comments: pt lives in apartment and grandson lives with her. Dtr is also supportive. pt is sometimes left alone and family has a camera on her where they can see her. Home Environment: Apartment, Level/No stairs Medical History: Hypertension, CVA/TIA, COPD, Arthritis Medical History Comments:: depression, O2 dependent Surgical History: Shoulder Replacement (Left) Medications: see chart Subjective Information/ Patient Comments:: pt's daughter states that the MD wanted to send her home today. However, she told him that pt had not been up walking and she was concerned about whether she could walk. pt states that she wants to try to get OOB. - Level of function Prior to this admission, the patient could do the following:: Independent Ambulation Abilities prior to this admission: pt amb short distances with rollator, daughter and help at home assist with needs. Current Level of Function: Partially Dependent Current Equipment Used at Home: rollator, O2 Interventions - Objective Patient Orientation: Person, Place, Situation Current Interventions: IV's (in L foot), Oxygen (3 liters), Telemetry, Powell Catheter Observation: pt with significant pitting edema BUE, R worse than L. RUE weeping and pillowcase, sheets, gown were saturated. Gown changed and nursing support worker stripped bed after pt transferred to chair. Range of Motion - ROM Right Upper Extremity AROM: Slight limitation (due to edema) Left Upper Extremity AROM: WFL's Right Lower Extremity AROM: WFL's Left Lower Extremity AROM: WFL's Muscle Strength - Muscle Strength Right Upper Extremity Strength: Mild Weakness (grossly 4-/5) Left Upper Extremity Strength: Mild Weakness (grossly 4-/5) Right Lower Extremity Strength: Mild Weakness (hip flex 3+/5, knee flex/ext 4- /5, ankle DF/PF 4-/5) Left Lower Extremity Strength: Mild Weakness (hip flex 3+/5, knee flex/ext 4-/5, ankle DF/PF not tested due to IV in L foot) Sensation - Sensation Right Upper Extremity Sensation: Intact/Normal Left Upper Extremity Sensation: Intact/Normal Right Lower Extremity Sensation: Intact/Normal Left Lower Extremity Sensation: Intact/Normal Palpation Palpation Findings: None/Normal Balance - Sitting Balance and Reactions Static Sitting Balance: Fair (fair+) Dynamic Sitting Balance: Fair - Standing Balance and Reactions Static Standing Balance: Poor Dynamic Standing Balance: Poor Standing Equilibrium Reactions: Delayed Left, Delayed Right Standing Protective Reactions: Delayed Left, Delayed Right - Comments Balance Assessment Comments: pt c/o dizziness upon standing Functional Mobility - Bed Mobility Rolling R/L: CGA Supine to Sit: CGA - Transfers Sit to Stand: Min Assist Stand to Sit: Min Assist, Mod Assist Stand Pivot Transfers: Min Assist, 1 person assist, 2 person assist Comments:: pt transferred bed to chair with rwx and O2 and required min x 1-2 due to being dizzy and required step by step instructions. - Safety Awareness Safety Awareness: Poor AMMON INDEX SCORE: n/a Ambulation - Ambulation Ambulation Comments: pt unable to attempt amb due to IV in L foot (per nursing) Treatment time - Units charged ADL: 1 (theract) - Time with patient Length of Evaluation: 19 Total treatment time: 32 Patient Education - Education Patient Education: Home Safety, Activity Modification, Education of Plan of Care Teaching Recipient: Patient, Family (dtr) Teaching Methods: Discussion (dtr states pt may need to go to prison prior to coming home so she can get stronger.) Assessment - Assessment Problem List:: Decreased level of function, Requires training/education, Decreased safety/Risk of falls, Weakness, Pain limits previous level of function, Cognitive status limits abilities Rehab Potential: Fair Further Therapy Indicated?: Yes Candidate for Swing Bed for Therapy Services?: Feel pt may be a candidate for LTC due to may require longer term rehab before returning home. Feel pt is not safe to be at home alone and requires 24/7 assist for safety. Evaluation Complexity: HISTORY: Medium, EXAM OF BODY SYSTEMS: Medium, CLINICAL PRESENTATION: Medium, CLINICAL DECISION MAKING: Medium Patient's Goal(s): I want to go back home. Short Term Goals GOAL #1: pt demonstrate independence with rolling and scooting up in bed. Goal to be met by: 06/24/21 GOAL #2: pt transfer sup to/from sit CGA Goal to be met by: 06/24/21 GOAL #3: Sit to/from stand CGA Goal to be met by: 06/24/21 GOAL #4: pt amb 50ft with rwx and O2 with min x 1. Goal to be met by: 06/24/21 GOAL #5: Improve dyn sit balance good - Goal to be met by: 06/24/21 [employer] Goals GOAL #1: pt transfer sup to/from sit to/from stand SBA Goal to be met by: 06/27/21 GOAL #2: pt amb functional household distances with rollator SBA to CGA Goal to be met by: 06/27/21 GOAL #3: Dyn stand balance fair as demonstrated by no LOB with transfers/ambulation Goal to be met by: 06/27/21 Plan Plan of Care: Therapeutic EX, Therapeutic Activity Other:: gait training Frequency of Treatment: 1-2 X day, as tolerated Duration of Treatment: 5 days Anticipated Discharge Destination: undetermined feel pt would benefit from LTC. Treatment Diagnosis (ICD 10 Codes): balance impaired R 26.81. risk of falls Z91.81. difficulty walking R 26.2. weakness M62.81 Has the Physician been added for Co-signature?: Yes
[2021-06-21] MEDS: REQUIP PO SCH (19:13)
--- NOTE | 2021-06-21 22:53 | PCM.PROG ---
Date Seen by Provider: 06/21/21 Time Seen by Provider: 09:00 Subjective: Date of admit - 06/15/21 Patient says she feels better, but has not been up much out of bed. Objective: Vitals: T=97.2 F, P=92, R=18, DR=057/72, SPO2=95 HEENT: wnl[] Neck: [wnl] Lungs: [reduced BS, no wheezing] CVS: [rrr] Abdomen: [soft] Extremities: [intact] Neurological: [intact] Skin: [intact] Lab/Tests/Diagnostic Imaging: [] (1) Acute exacerbation of chronic obstructive pulmonary disease: Status: Acute Code(s): J44.1 - Chronic obstructive pulmonary disease with (acute) exacerbation SNOMED Code(s): 065582896 Assessment: Better clinically. She is on oxygen at 3 L with sat over 90 (she is on 3 L at home). No wheezing. Duoneb tx prn. Steroids have been high doses for 5 days, time to cut back. On vanco and rocephin with no evidence of pneumonia, not needed any more. (2) Hyperkalemia: Status: Acute Code(s): E87.5 - Hyperkalemia SNOMED Code(s): 40691283 Assessment: Improved. (3) Edema of both upper extremities: Status: Acute Code(s): R60.0 - Localized edema SNOMED Code(s): 364746588 Assessment: chronic (4) Mild cognitive impairment with memory loss: Status: Acute Code(s): G31.84 - Mild cognitive impairment, so stated SNOMED Code(s): 716116424 Assessment: chronic Plan: Reduced solumedrol to 40 q 8 hr. D/C abx. Order PT to encourage her to get out of bed.
[2021-06-22] MEDS: DUONEB NEB SCH ×6 (01:45→21:19)
[2021-06-22] MEDS: SODIUM CHLORIDE 1,000 ML IV SCH ×2 (03:50→11:41)
[2021-06-22] MEDS ORDERED: SOLU-MEDROL 40 MG IVP SCH (05:00)
[2021-06-22] MEDS: PERCOCET 7.5-325 PO PRN ×3 (05:44→23:31)
[2021-06-22] MEDS: PROTONIX PO SCH ×2 (05:44→17:09)
[2021-06-22] MEDS: PROZAC PO SCH (09:06)
[2021-06-22] MEDS: NEURONTIN PO SCH ×2 (09:06→20:23)
[2021-06-22] MEDS: NORVASC PO SCH (09:06)
[2021-06-22] MEDS: COREG PO SCH ×2 (09:06→17:09)
[2021-06-22] MEDS: MAG-OX PO SCH (09:06)
[2021-06-22] MEDS: COZAAR PO SCH (09:07)
[2021-06-22] MEDS: ASPIRIN EC PO SCH (09:07)
[2021-06-22] MEDS: FLONASE NAS SCH (09:07)
[2021-06-22] MEDS: SINGULAIR PO SCH (09:07)
[2021-06-22] MEDS: SPIRIVA IH SCH (09:08)
[2021-06-22] MEDS: LOVENOX SUBCUT SCH (09:08)
[2021-06-22] MEDS: SYMBICORT 160-4.5 MCG INHALER IH SCH ×2 (09:08→20:23)
[2021-06-22] MEDS ORDERED: PREDNISONE PO ONE (12:00)
[2021-06-22] MEDS: REQUIP PO SCH (17:09)
--- NOTE | 2021-06-22 20:00 | PCM.PROG ---
Date Seen by Provider: 06/22/21 Time Seen by Provider: 09:00 Subjective: Breathing OK. Still weak. [facility]ed in going to a [facility]. Objective: Vitals: T=98.3 F, P=65, R=20, PQ=955/73, SPO2=98 HEENT: [wnl] Neck: wnl[] Lungs: [feb. BS, clear] CVS: [RRR Abdomen: [soft] Extremities: [intact] Neurological: [intact] Skin: intact[] Lab/Tests/Diagnostic Imaging: [] (1) Acute exacerbation of chronic obstructive pulmonary disease: Status: Acute Code(s): J44.1 - Chronic obstructive pulmonary disease with (acute) exacerbation SNOMED Code(s): 976064012 Assessment: Has improved. Stopped abx. Tapering down steroids. O2 still at home level, 3 L per NC. (2) Hyperkalemia: Status: Acute Code(s): E87.5 - Hyperkalemia SNOMED Code(s): 61396186 Assessment: resolved (3) Edema of both upper extremities: Status: Acute Code(s): R60.0 - Localized edema SNOMED Code(s): 009233205 Assessment: chronic (4) Mild cognitive impairment with memory loss: Status: Acute Code(s): G31.84 - Mild cognitive impairment, so stated SNOMED Code(s): 155885045 Assessment: chronic Plan: Continue to taper steroids. PT to evaluate her. Sounds like she is agreeable to NHP. latcher will check on that.
[2021-06-23] MEDS: DUONEB NEB SCH ×6 (01:10→21:03)
[2021-06-23] MEDS: PERCOCET 7.5-325 PO PRN ×3 (04:20→19:11)
[2021-06-23] MEDS: PROTONIX PO SCH ×2 (05:42→17:31)
[2021-06-23] MEDS: FLONASE NAS SCH (08:27)
[2021-06-23] MEDS: SYMBICORT 160-4.5 MCG INHALER IH SCH ×2 (08:27→20:22)
[2021-06-23] MEDS: MAG-OX PO SCH (08:28)
[2021-06-23] MEDS: SPIRIVA IH SCH (08:28)
[2021-06-23] MEDS: NORVASC PO SCH (08:28)
[2021-06-23] MEDS: NEURONTIN PO SCH ×2 (08:28→20:21)
[2021-06-23] MEDS: LOVENOX SUBCUT SCH (08:28)
[2021-06-23] MEDS ORDERED: PREDNISONE PO SCH (08:30)
[2021-06-23] MEDS: PROZAC PO SCH (08:30)
[2021-06-23] MEDS: COREG PO SCH ×2 (08:30→17:31)
[2021-06-23] MEDS: COZAAR PO SCH (08:30)
[2021-06-23] MEDS: SINGULAIR PO SCH (08:30)
[2021-06-23] MEDS: ASPIRIN EC PO SCH (08:30)
[2021-06-23] MEDS: TYLENOL PO PRN (12:55)
[2021-06-23] MEDS: REQUIP PO SCH (17:31)
--- NOTE | 2021-06-23 20:56 | PCM.PROG ---
Date Seen by Provider: 06/23/21 Time Seen by Provider: 12:00 Subjective: Date of Admit - 06/15/21 She has no breathing problems, but due to ongoing weakness is requesting long-term placement. Objective: Vitals: T=97.2 F, P=92, R=18, EP=637/72, SPO2=95 HEENT: [wnl] Neck: [wnl] Lungs: [no wheezes, dec. BS] CVS: [RRR] Abdomen: [soft] Extremities: [intact, chronic edema] Neurological: [intact] Skin: [WNL for age] Lab/Tests/Diagnostic Imaging: [] (1) Acute exacerbation of chronic obstructive pulmonary disease: Status: Acute Code(s): J44.1 - Chronic obstructive pulmonary disease with (acute) exacerbation SNOMED Code(s): 187574308 Assessment: Sig. improved, now at baseline (2) Hyperkalemia: Status: Acute Code(s): E87.5 - Hyperkalemia SNOMED Code(s): 22000456 Assessment: resolved (3) Edema of both upper extremities: Status: Acute Code(s): R60.0 - Localized edema SNOMED Code(s): 629492066 Assessment: resolved (4) Mild cognitive impairment with memory loss: Status: Acute Code(s): G31.84 - Mild cognitive impairment, so stated SNOMED Code(s): 803921779 Assessment: chronic Plan: alf placement. No need for further steroids. Off anbitiotics as well.
[2021-06-24] MEDS: PERCOCET 7.5-325 PO PRN ×2 (01:02→16:02)
[2021-06-24] MEDS: DUONEB NEB SCH ×5 (01:06→18:05)
[2021-06-24] MEDS: TYLENOL PO PRN (05:40)
[2021-06-24] MEDS: PROTONIX PO SCH ×2 (05:40→16:02)
--- NOTE | 2021-06-24 07:42 | PCM.PROG ---
Patient seen 0715, Resting comfortable, Nurses notes reviewed. S: "I feel fine" O: vitals: BP 165/77 Pulse: 66, R: 18 Temp 97.1 02 sat 97% on 02 Elderly female in NAD Chest Clear to A/P Cor: S1S2 no m/r/g Chest: mild diffuse wheezed, still needs 02 for SOB Abd: benign Ext no CCERP A/P: 1 COPD exacerbation Stable on current tx. Plan continue present management, awaiting placement.
[2021-06-24] MEDS: LOVENOX SUBCUT SCH (08:43)
[2021-06-24] MEDS: COZAAR PO SCH (08:44)
[2021-06-24] MEDS: COREG PO SCH ×2 (08:44→16:02)
[2021-06-24] MEDS: SPIRIVA IH SCH (08:44)
[2021-06-24] MEDS: PREDNISONE PO SCH (08:44)
[2021-06-24] MEDS: MAG-OX PO SCH (08:45)
[2021-06-24] MEDS: NORVASC PO SCH (08:45)
[2021-06-24] MEDS: SINGULAIR PO SCH (08:45)
[2021-06-24] MEDS: ASPIRIN EC PO SCH (08:45)
[2021-06-24] MEDS: NEURONTIN PO SCH ×2 (08:45→21:03)
[2021-06-24] MEDS: PROZAC PO SCH (08:45)
[2021-06-24] MEDS: FLONASE NAS SCH (08:47)
[2021-06-24] MEDS: SYMBICORT 160-4.5 MCG INHALER IH SCH ×2 (08:47→21:04)
--- NOTE | 2021-06-24 10:26 | PCM.DC ---
Final Diagnosis: Acute COPD Exacerbation Physical Exam Appearance: Ill-appearing and Obese Ill-appearing: Moderate Pain Distress: None Eyes: BRADLEY, EOMI and Conjunctiva clear ENT: Ears normal, Nose normal and Oropharynx normal Neck: Supple Respiratory: Breath sounds diminished and Wheezes Cardiovascular: RRR, Pulses normal, No rub and No murmur GI/: Soft, Nontender, No masses and Bowel sounds normal Musculoskeletal: Normal strength, ROM intact and No calf tenderness Skin: Warm, Dry and Normal color Neurological: Sensation intact, Motor intact, Reflexes intact, Cranial nerves intact, Alert and Oriented Psychiatric: Affect appropriate (1) Acute exacerbation of chronic obstructive pulmonary disease: Status: Acute Code(s): J44.1 - Chronic obstructive pulmonary disease with (acute) exacerbation SNOMED Code(s): 465059022 (2) Hyperkalemia: Status: Acute Code(s): E87.5 - Hyperkalemia SNOMED Code(s): 08426923 (3) Edema of both upper extremities: Status: Acute Code(s): R60.0 - Localized edema SNOMED Code(s): 668683046 (4) Mild cognitive impairment with memory loss: Status: Acute Code(s): G31.84 - Mild cognitive impairment, so stated SNOMED Code(s): 485182542 Reason for Hospitalization: Shortness of Breath and Acute Exacerbation of COPD. Admitted 06/15/2021, discahrged 06/24/2021. Prognosis/Condition at Discharge: fair Medications at Discharge: Ambulatory Orders Medication Instructions Recorded aspirin 81 mg tablet,delayed 81 mg PO DAILY 90 Days #90 tab-cap 04/30/19 release (Aspir-) fluticasone propionate 50 2 spray INTRANASAL DAILY 30 Days 04/30/19 mcg/actuation nasal #1 inha spray,suspension magnesium oxide 400 mg (241.3 mg 400 mg PO DAILY 90 Days #90 tab 02/04/20 magnesium) tablet potassium chloride 20 mEq 20 meq PO DAILY #30 tab 08/31/20 tablet,extended release(part/cryst) (Klor-Con M) saliva substitute combo no.9 15 ml MUCOUS MEMBRANE BID-QID PRN 09/03/20 (Biotene PBF) #473 ml acetaminophen 325 mg capsule 650 mg PO Q6H PRN 02/14/21 (Tylenol) albuterol sulfate 90 mcg/actuation 2 puff IH .q 4 hour PRN #18 gm 02/21/21 aerosol inhaler (ProAir HFA) gabapentin 600 mg tablet 600 mg PO BID 90 Days #180 tab-cap 03/24/21 albuterol sulfate 2.5 mg (3 mL) INHALATION Q6H #180 05/19/21 ml fluticasone fur. 100 mcg-umeclid 1 inh INHALATION Q24H #60 ea 05/19/21 62.5 mcg-vilant 25 mcg inhalat.powder (Trelegy Ellipta) losartan 50 mg tablet 75 mg PO QDAY #45 tab 05/19/21 montelukast 10 mg tablet 10 mg PO DAILY 30 Days #30 tab-cap 05/19/21 (Singulair) oxycodone-acetaminophen 7.5 mg-325 0.5 tab PO QID PRN #60 tab 05/19/21 mg tablet (Percocet) pantoprazole 40 mg tablet,delayed 40 mg PO BID #60 tab-cap 05/19/21 release (Protonix) ropinirole 1 mg tablet 1 mg PO DAILY #30 tab-cap 05/19/21 amlodipine 10 mg tablet (Norvasc) 15 mg PO QDAY #90 tab 06/17/21 carvedilol 6.25 mg tablet 6.25 mg PO BIDWM 30 Days #60 tab 06/17/21 fluoxetine 20 mg capsule (Prozac) 20 mg PO QDAY #30 cap 06/17/21 Lab/Diagnostics: WBC 8.8, H/H [address], [place] [address] Report : [id number] Signed Patient: PHOEBE ALCOCER Acct:[id number] Medical Record: [id number] : 1945 Loc: [facility] Room/Bed: Age/Sex: 75 / F ADM Status: ADM IN Date of Service: 06/20/21 Ordering Physician: RORO HAYES MD Procedure(s): CT CHEST W/CONTRAST Report Number(s): [id number] Accession Number(s): [id number] cc: RORO HAYES MD; HARESH MAI MD EXAM: CT scan of the chest with contrast HISTORY: Superior vena cava syndrome TECHNIQUE: Imaging of the chest was performed following the intravenous administration of contrast. 5 mm thin axial images and coronal and sagittal reconstructions were obtained. Comparison 06/18/2021. FINDINGS: The heart is normal size. No mediastinal masses are seen. No definite masses are seen along the superior vena cava. There is atherosclerotic disease of the thoracic aorta. There is a small hiatal hernia. Small bilateral pleural effusions are seen. There is diffuse edema seen within the soft tissues of the right breast. The findings appear similar when compared to previous study. No obvious fluid collections are seen within the right breast. IMPRESSION: No acute abnormalities are seen within the mediastinum. Small bilateral pleural effusions are seen, right greater than left. Diffuse edema seen within the soft tissues of the right breast. The etiology is clear. The findings were also seen on previous examination. Hiatal hernia. All CT scans are performed using dose optimization techniques as appropriate to the performed exam and include at least one of the following: Automated exposure control, adjustment of the mA and/or kV according to size, and the use of iterative reconstruction technique. Dictated By: JANINE CAZARES Signed By: JANINE CAZARES Dictated Date/Time: 06/20/21 1250 Transcribed Date/Time: 06/20/21 1250 Signed Date/Time: 06/20/21 1300 Discharge Disposition: Transfer Hospital Course: 75 year old femaleadmitted with Acute COPD exacerbation, on home 02, 3L/min. Responded to IV ABX, Steroid pulse. )2 at baseline need. Plan: Stop ABX, Continue supportive care and steroid taper.
[2021-06-24] MEDS: REQUIP PO SCH (17:29)
[2021-06-25] MEDS: PERCOCET 7.5-325 PO PRN ×3 (02:43→18:09)
[2021-06-25] MEDS: DUONEB NEB SCH ×2 (05:05→16:54)
[2021-06-25] MEDS: PROTONIX PO SCH ×2 (05:32→17:30)
[2021-06-25] MEDS: NORVASC PO SCH (08:43)
[2021-06-25] MEDS: MAG-OX PO SCH (08:43)
[2021-06-25] MEDS: ASPIRIN EC PO SCH (08:43)
[2021-06-25] MEDS: PROZAC PO SCH (08:44)
[2021-06-25] MEDS: PREDNISONE PO SCH (08:44)
[2021-06-25] MEDS: COREG PO SCH ×2 (08:44→17:30)
[2021-06-25] MEDS: SINGULAIR PO SCH (08:44)
[2021-06-25] MEDS: NEURONTIN PO SCH ×2 (08:44→20:40)
[2021-06-25] MEDS: COZAAR PO SCH (08:44)
[2021-06-25] MEDS: SPIRIVA IH SCH (08:46)
[2021-06-25] MEDS: SYMBICORT 160-4.5 MCG INHALER IH SCH ×2 (08:46→20:44)
[2021-06-25] MEDS: FLONASE NAS SCH (08:46)
[2021-06-25] MEDS: LOVENOX SUBCUT SCH (08:47)
[2021-06-25] MEDS: REQUIP PO SCH (17:30)
[2021-06-26] MEDS: PERCOCET 7.5-325 PO PRN (05:10)
[2021-06-26] MEDS: DUONEB NEB SCH ×2 (05:10→17:05)
[2021-06-26] MEDS: PROTONIX PO SCH ×2 (05:41→17:28)
[2021-06-26] MEDS: PREDNISONE PO SCH (08:49)
[2021-06-26] MEDS: FLONASE NAS SCH (08:49)
[2021-06-26] MEDS: ASPIRIN EC PO SCH (08:49)
[2021-06-26] MEDS: NEURONTIN PO SCH ×2 (08:49→21:43)
[2021-06-26] MEDS: MAG-OX PO SCH (08:49)
[2021-06-26] MEDS: SYMBICORT 160-4.5 MCG INHALER IH SCH ×2 (08:49→21:44)
[2021-06-26] MEDS: COZAAR PO SCH (08:49)
[2021-06-26] MEDS: PROZAC PO SCH (08:50)
[2021-06-26] MEDS: COREG PO SCH ×2 (08:50→17:27)
[2021-06-26] MEDS: NORVASC PO SCH (08:50)
[2021-06-26] MEDS: SINGULAIR PO SCH (08:50)
[2021-06-26] MEDS: LOVENOX SUBCUT SCH (08:51)
[2021-06-26] MEDS: SPIRIVA IH SCH (08:51)
[2021-06-26] MEDS: REQUIP PO SCH (17:28)
[2021-06-27] MEDS: PERCOCET 7.5-325 PO PRN ×2 (00:40→16:07)
[2021-06-27] MEDS: DUONEB NEB SCH (04:35)
[2021-06-27] MEDS: PROTONIX PO SCH ×2 (05:45→16:08)
[2021-06-27] MEDS: NORVASC PO SCH (10:05)
[2021-06-27] MEDS: MAG-OX PO SCH (10:05)
[2021-06-27] MEDS: COREG PO SCH ×2 (10:06→16:08)
[2021-06-27] MEDS: NEURONTIN PO SCH (10:06)
[2021-06-27] MEDS: SYMBICORT 160-4.5 MCG INHALER IH SCH (10:06)
[2021-06-27] MEDS: ASPIRIN EC PO SCH (10:06)
[2021-06-27] MEDS: SPIRIVA IH SCH (10:06)
[2021-06-27] MEDS: COZAAR PO SCH (10:06)
[2021-06-27] MEDS: FLONASE NAS SCH (10:07)
[2021-06-27] MEDS: LOVENOX SUBCUT SCH (10:07)
[2021-06-27] MEDS: SINGULAIR PO SCH (10:07)
[2021-06-27] MEDS: PROZAC PO SCH (10:07)
[2021-06-27] MEDS: PREDNISONE PO SCH (10:07)
[2021-06-27 14:29] VITALS: BP 122/60; TEMP 99.3
--- NOTE | 2021-06-27 15:42 | PCM.DC ---
Final Diagnosis: Date of Admit - 06/15/21 Date of Discharge 06/27/21 Discharge diagnosis - COPD Exacerbation - resolved. Physical Exam Appearance: Well-appearing and Obese Ill-appearing: None Pain Distress: None Eyes: BRADELY ENT: Oropharynx normal Neck: Supple Respiratory: Airway patent, Breath sounds clear and Breath sounds equal Cardiovascular: RRR and Pulses normal GI/: Soft and Nontender Musculoskeletal: Normal strength (at her baseline) and ROM intact (at her baseline) Skin: Warm and Dry Neurological: Sensation intact, Motor intact and Alert Psychiatric: Affect appropriate and Mood appropriate (1) Acute exacerbation of chronic obstructive pulmonary disease: Status: Acute Code(s): J44.1 - Chronic obstructive pulmonary disease with (acute) exacerbation SNOMED Code(s): 953594508 (2) Hyperkalemia: Status: Acute Code(s): E87.5 - Hyperkalemia SNOMED Code(s): 84311098 (3) Edema of both upper extremities: Status: Acute Code(s): R60.0 - Localized edema SNOMED Code(s): 194914171 (4) Mild cognitive impairment with memory loss: Status: Acute Code(s): G31.84 - Mild cognitive impairment, so stated SNOMED Code(s): 545600197 Reason for Hospitalization: Admitted for COPD exacerbation. Generalized weakness and debility as well. Prognosis/Condition at Discharge: Good. Stable. Medications at Discharge: Ambulatory Orders Medication Instructions Recorded aspirin 81 mg tablet,delayed 81 mg PO DAILY 90 Days #90 tab-cap 04/30/19 release (Aspir-) fluticasone propionate 50 2 spray INTRANASAL DAILY 30 Days 04/30/19 mcg/actuation nasal #1 inha spray,suspension magnesium oxide 400 mg (241.3 mg 400 mg PO DAILY 90 Days #90 tab 02/04/20 magnesium) tablet potassium chloride 20 mEq 20 meq PO DAILY #30 tab 08/31/20 tablet,extended release(part/cryst) (Klor-Con M) saliva substitute combo no.9 15 ml MUCOUS MEMBRANE BID-QID PRN 09/03/20 (Biotene PBF) #473 ml acetaminophen 325 mg capsule 650 mg PO Q6H PRN 02/14/21 (Tylenol) albuterol sulfate 90 mcg/actuation 2 puff IH .q 4 hour PRN #18 gm 02/21/21 aerosol inhaler (ProAir HFA) gabapentin 600 mg tablet 600 mg PO BID 90 Days #180 tab-cap 03/24/21 albuterol sulfate 2.5 mg (3 mL) INHALATION Q6H #180 05/19/21 ml fluticasone fur. 100 mcg-umeclid 1 inh INHALATION Q24H #60 ea 05/19/21 62.5 mcg-vilant 25 mcg inhalat.powder (Trelegy Ellipta) losartan 50 mg tablet 75 mg PO QDAY #45 tab 05/19/21 montelukast 10 mg tablet 10 mg PO DAILY 30 Days #30 tab-cap 05/19/21 (Singulair) oxycodone-acetaminophen 7.5 mg-325 0.5 tab PO QID PRN #60 tab 05/19/21 mg tablet (Percocet) pantoprazole 40 mg tablet,delayed 40 mg PO BID #60 tab-cap 05/19/21 release (Protonix) ropinirole 1 mg tablet 1 mg PO DAILY #30 tab-cap 05/19/21 amlodipine 10 mg tablet (Norvasc) 15 mg PO QDAY #90 tab 06/17/21 carvedilol 6.25 mg tablet 6.25 mg PO BIDWM 30 Days #60 tab 06/17/21 fluoxetine 20 mg capsule (Prozac) 20 mg PO QDAY #30 cap 06/17/21 Lab/Diagnostics: Laboratory Tests 06/15/21 06/15/21 06/15/21 01:53 02:01 02:20 WBC 12.90 H RBC 3.29 L Hgb 9.2 L Hct 32.0 L MCV 97.3 MCH 28.0 MCHC 28.8 L RDW Coeff of Lynette 15.1 H Plt Count 259 Immature Gran % (Auto) 0.5 Neut % (Auto) 81.1 H Lymph % (Auto) 7.0 L [place] % (Auto) 10.3 H Eos % (Auto) 0.9 Baso % (Auto) 0.2 Neut # (Auto) 10.5 H Lymph # (Auto) 0.9 [place] # (Auto) 1.3 Eos # (Auto) 0.1 Baso # (Auto) 0.0 Immature Gran # (Auto) 0.1 Hypochromasia Occasional Anisocytosis Not present Puncture Site Lb Base Excess 9.9 H O2 Saturation 56.4 L ABG pH 7.15 L* ABG pCO2 111.0 H ABG pO2 39.0 L* ABG HCO3 38.7 H ABG Total CO2 42.1 H Bernabe Test + Hemoglobin 1.1 Oxyhemoglobin 64.7 L Carboxyhemoglobin 2.1 H Total Hemoglobin 9.4 L O2 Delivery Device Non rebreather Oxygen Liter Flow 15.00 FiO2 % 100.0 Sodium 136.9 Potassium 5.92 H Chloride 97.4 L Carbon Dioxide 34.8 H Anion Gap 10.62 BUN 21.7 H Creatinine 1.35 H Estimated GFR (MDRD) 38.00 BUN/Creatinine Ratio 16.07 Glucose 137.1 H Lactic Acid Calcium 8.45 Magnesium Total Bilirubin 0.37 AST 30.8 ALT 15.2 Alkaline Phosphatase 109.1 Total Creatine Kinase CK-MB (CK-2) CK-MB (CK-2) % Troponin I NT-Pro-B Natriuret Pep Total Protein 7.17 Albumin 4.39 Globulin 2.78 Albumin/Globulin Ratio 1.57 Procalcitonin Urine Color Urine Clarity Urine pH Ur Specific [place] Urine Protein Urine Glucose (UA) Urine Ketones Urine Blood Urine Nitrite Urine Bilirubin Urine Urobilinogen Ur Leukocyte Esterase Adenovirus (PCR) B. pertussis DNA (PCR) B.parapertussis DNA PCR C. pneumoniae DNA (PCR) Coronavirus OC43 (PCR) Coronavirus HKU1 (PCR) Coronavirus 229E (PCR) Coronavirus NL63 (PCR) Human Metapneumovir PCR Influenza Type A (PCR) Influenza B (RT-PCR) M. pneumoniae (PCR) Parainfluenza 1 (PCR) Parainfluenza 2 (PCR) Parainfluenza 3 (PCR) Parainfluenza 4 (PCR) RSV (PCR) Entero/Rhino (PCR) SARS-CoV-2 (PCR) 06/15/21 06/15/21 06/15/21 02:49 02:50 03:14 WBC RBC Hgb Hct MCV MCH MCHC RDW Coeff of Lynette Plt Count Immature Gran % (Auto) Neut % (Auto) Lymph % (Auto) [place] % (Auto) Eos % (Auto) Baso % (Auto) Neut # (Auto) Lymph # (Auto) [place] # (Auto) Eos # (Auto) Baso # (Auto) Immature Gran # (Auto) Hypochromasia Anisocytosis Puncture Site Base Excess O2 Saturation ABG pH ABG pCO2 ABG pO2 ABG HCO3 ABG Total CO2 Bernabe Test Hemoglobin Oxyhemoglobin Carboxyhemoglobin Total Hemoglobin O2 Delivery Device Oxygen Liter Flow FiO2 % Sodium Potassium Chloride Carbon Dioxide Anion Gap BUN Creatinine Estimated GFR (MDRD) BUN/Creatinine Ratio Glucose Lactic Acid Calcium Magnesium Total Bilirubin AST ALT Alkaline Phosphatase Total Creatine Kinase CK-MB (CK-2) CK-MB (CK-2) % Troponin I < 0.012 NT-Pro-B Natriuret Pep 1010.000 H Total Protein Albumin Globulin Albumin/Globulin Ratio Procalcitonin Urine Color Urine Clarity Urine pH Ur Specific [place] Urine Protein Urine Glucose (UA) Urine Ketones Urine Blood Urine Nitrite Urine Bilirubin Urine Urobilinogen Ur Leukocyte Esterase Adenovirus (PCR) Not detected B. pertussis DNA (PCR) Not detected B.parapertussis DNA PCR Not detected C. pneumoniae DNA (PCR) Not detected Coronavirus OC43 (PCR) Not detected Coronavirus HKU1 (PCR) Not detected Coronavirus 229E (PCR) Not detected Coronavirus NL63 (PCR) Not detected Human Metapneumovir PCR Not detected Influenza Type A (PCR) Not detected Influenza B (RT-PCR) Not detected M. pneumoniae (PCR) Not detected Parainfluenza 1 (PCR) Not detected Parainfluenza 2 (PCR) Not detected Parainfluenza 3 (PCR) Not detected Parainfluenza 4 (PCR) Not detected RSV (PCR) Not detected Entero/Rhino (PCR) Not detected SARS-CoV-2 (PCR) Not detected 06/15/21 06/15/21 06/15/21 03:14 03:14 03:14 WBC RBC Hgb Hct MCV MCH MCHC RDW Coeff of Lynette Plt Count Immature Gran % (Auto) Neut % (Auto) Lymph % (Auto) [place] % (Auto) Eos % (Auto) Baso % (Auto) Neut # (Auto) Lymph # (Auto) [place] # (Auto) Eos # (Auto) Baso # (Auto) Immature Gran # (Auto) Hypochromasia Anisocytosis Puncture Site Base Excess O2 Saturation ABG pH ABG pCO2 ABG pO2 ABG HCO3 ABG Total CO2 Bernabe Test Hemoglobin Oxyhemoglobin Carboxyhemoglobin Total Hemoglobin O2 Delivery Device Oxygen Liter Flow FiO2 % Sodium Potassium 5.99 H Chloride Carbon Dioxide Anion Gap BUN Creatinine Estimated GFR (MDRD) BUN/Creatinine Ratio Glucose Lactic Acid < 0.50 L Calcium Magnesium Total Bilirubin AST ALT Alkaline Phosphatase Total Creatine Kinase CK-MB (CK-2) CK-MB (CK-2) % Troponin I NT-Pro-B Natriuret Pep Total Protein Albumin Globulin Albumin/Globulin Ratio Procalcitonin < 0.05 Urine Color Urine Clarity Urine pH Ur Specific [place] Urine Protein Urine Glucose (UA) Urine Ketones Urine Blood Urine Nitrite Urine Bilirubin Urine Urobilinogen Ur Leukocyte Esterase Adenovirus (PCR) B. pertussis DNA (PCR) B.parapertussis DNA PCR C. pneumoniae DNA (PCR) Coronavirus OC43 (PCR) Coronavirus HKU1 (PCR) Coronavirus 229E (PCR) Coronavirus NL63 (PCR) Human Metapneumovir PCR Influenza Type A (PCR) Influenza B (RT-PCR) M. pneumoniae (PCR) Parainfluenza 1 (PCR) Parainfluenza 2 (PCR) Parainfluenza 3 (PCR) Parainfluenza 4 (PCR) RSV (PCR) Entero/Rhino (PCR) SARS-CoV-2 (PCR) 06/15/21 06/15/21 06/15/21 04:15 05:20 05:20 WBC 13.10 H RBC 3.17 L Hgb 8.8 L Hct 30.7 L MCV 96.8 MCH 27.8 MCHC 28.7 L RDW Coeff of Lynette 15.2 H Plt Count 240 Immature Gran % (Auto) 0.6 Neut % (Auto) 91.5 H Lymph % (Auto) 3.8 L [place] % (Auto) 3.7 Eos % (Auto) 0.2 Baso % (Auto) 0.2 Neut # (Auto) 12.0 H Lymph # (Auto) 0.5 L [place] # (Auto) 0.5 Eos # (Auto) 0.0 Baso # (Auto) 0.0 Immature Gran # (Auto) 0.1 Hypochromasia Occasional Anisocytosis Not present Puncture Site Lb Base Excess 8.9 H O2 Saturation 54.9 L ABG pH 7.18 L* ABG pCO2 100.0 H ABG pO2 37.0 L* ABG HCO3 37.3 H ABG Total CO2 40.4 H Bernabe Test + Hemoglobin 0.9 Oxyhemoglobin 66.7 L Carboxyhemoglobin 1.7 H Total Hemoglobin 10.8 L O2 Delivery Device Oxygen Liter Flow FiO2 % 80.0 Sodium 136.9 Potassium 6.21 H* Chloride 97.9 L Carbon Dioxide 35.2 H Anion Gap 10.01 BUN 23.2 H Creatinine 1.42 H Estimated GFR (MDRD) 36.00 BUN/Creatinine Ratio 16.33 Glucose 137.5 H Lactic Acid Calcium 8.15 L Magnesium Total Bilirubin 0.41 AST 27.4 ALT 14.5 Alkaline Phosphatase 110.6 Total Creatine Kinase CK-MB (CK-2) CK-MB (CK-2) % Troponin I NT-Pro-B Natriuret Pep Total Protein 6.73 Albumin 4.11 Globulin 2.62 Albumin/Globulin Ratio 1.56 Procalcitonin Urine Color Urine Clarity Urine pH Ur Specific [place] Urine Protein Urine Glucose (UA) Urine Ketones Urine Blood Urine Nitrite Urine Bilirubin Urine Urobilinogen Ur Leukocyte Esterase Adenovirus (PCR) B. pertussis DNA (PCR) B.parapertussis DNA PCR C. pneumoniae DNA (PCR) Coronavirus OC43 (PCR) Coronavirus HKU1 (PCR) Coronavirus 229E (PCR) Coronavirus NL63 (PCR) Human Metapneumovir PCR Influenza Type A (PCR) Influenza B (RT-PCR) M. pneumoniae (PCR) Parainfluenza 1 (PCR) Parainfluenza 2 (PCR) Parainfluenza 3 (PCR) Parainfluenza 4 (PCR) RSV (PCR) Entero/Rhino (PCR) SARS-CoV-2 (PCR) 06/15/21 06/15/21 06/15/21 09:17 09:17 10:37 WBC RBC Hgb Hct MCV MCH MCHC RDW Coeff of Lynette Plt Count Immature Gran % (Auto) Neut % (Auto) Lymph % (Auto) [place] % (Auto) Eos % (Auto) Baso % (Auto) Neut # (Auto) Lymph # (Auto) [place] # (Auto) Eos # (Auto) Baso # (Auto) Immature Gran # (Auto) Hypochromasia Anisocytosis Puncture Site Rrad Base Excess 8.0 H O2 Saturation 80.2 L ABG pH 7.27 L* ABG pCO2 76.0 H ABG pO2 51.0 L* ABG HCO3 34.9 H ABG Total CO2 37.2 H Bernabe Test + Hemoglobin 1.0 Oxyhemoglobin 86.2 L Carboxyhemoglobin 2.0 H Total Hemoglobin 9.5 L O2 Delivery Device Nc Oxygen Liter Flow 3.00 FiO2 % 32.0 Sodium Potassium 5.75 H Chloride Carbon Dioxide Anion Gap BUN Creatinine Estimated GFR (MDRD) BUN/Creatinine Ratio Glucose Lactic Acid Calcium Magnesium Total Bilirubin AST ALT Alkaline Phosphatase Total Creatine Kinase 177.4 H CK-MB (CK-2) 3.150 H CK-MB (CK-2) % 1.7700 Troponin I < 0.012 NT-Pro-B Natriuret Pep Total Protein Albumin Globulin Albumin/Globulin Ratio Procalcitonin Urine Color Urine Clarity Urine pH Ur Specific [place] Urine Protein Urine Glucose (UA) Urine Ketones Urine Blood Urine Nitrite Urine Bilirubin Urine Urobilinogen Ur Leukocyte Esterase Adenovirus (PCR) B. pertussis DNA (PCR) B.parapertussis DNA PCR C. pneumoniae DNA (PCR) Coronavirus OC43 (PCR) Coronavirus HKU1 (PCR) Coronavirus 229E (PCR) Coronavirus NL63 (PCR) Human Metapneumovir PCR Influenza Type A (PCR) Influenza B (RT-PCR) M. pneumoniae (PCR) Parainfluenza 1 (PCR) Parainfluenza 2 (PCR) Parainfluenza 3 (PCR) Parainfluenza 4 (PCR) RSV (PCR) Entero/Rhino (PCR) SARS-CoV-2 (PCR) 06/15/21 06/15/21 06/15/21 12:00 14:00 17:40 WBC RBC Hgb Hct MCV MCH MCHC RDW Coeff of Lynette Plt Count Immature Gran % (Auto) Neut % (Auto) Lymph % (Auto) [place] % (Auto) Eos % (Auto) Baso % (Auto) Neut # (Auto) Lymph # (Auto) [place] # (Auto) Eos # (Auto) Baso # (Auto) Immature Gran # (Auto) Hypochromasia Anisocytosis Puncture Site Base Excess O2 Saturation ABG pH ABG pCO2 ABG pO2 ABG HCO3 ABG Total CO2 Bernabe Test Hemoglobin Oxyhemoglobin Carboxyhemoglobin Total Hemoglobin O2 Delivery Device Oxygen Liter Flow FiO2 % Sodium Potassium 5.70 H Chloride Carbon Dioxide Anion Gap BUN Creatinine Estimated GFR (MDRD) BUN/Creatinine Ratio Glucose Lactic Acid Calcium Magnesium Total Bilirubin AST ALT Alkaline Phosphatase Total Creatine Kinase 172.1 H CK-MB (CK-2) 3.050 H CK-MB (CK-2) % 1.7700 Troponin I < 0.012 NT-Pro-B Natriuret Pep Total Protein Albumin Globulin Albumin/Globulin Ratio Procalcitonin Urine Color Yellow Urine Clarity Clear Urine pH 5.5 Ur Specific [place] 1.020 Urine Protein Negative Urine Glucose (UA) Negative Urine Ketones Negative Urine Blood Negative Urine Nitrite Negative Urine Bilirubin Negative Urine Urobilinogen 0.2 Ur Leukocyte Esterase Negative Adenovirus (PCR) B. pertussis DNA (PCR) B.parapertussis DNA PCR C. pneumoniae DNA (PCR) Coronavirus OC43 (PCR) Coronavirus HKU1 (PCR) Coronavirus 229E (PCR) Coronavirus NL63 (PCR) Human Metapneumovir PCR Influenza Type A (PCR) Influenza B (RT-PCR) M. pneumoniae (PCR) Parainfluenza 1 (PCR) Parainfluenza 2 (PCR) Parainfluenza 3 (PCR) Parainfluenza 4 (PCR) RSV (PCR) Entero/Rhino (PCR) SARS-CoV-2 (PCR) 06/15/21 06/15/21 06/16/21 17:40 17:40 05:15 WBC 12.03 H RBC 3.02 L Hgb 8.4 L Hct 28.5 L MCV 94.4 MCH 27.8 MCHC 29.5 L RDW Coeff of Lynette 15.1 H Plt Count 242 Immature Gran % (Auto) 1.1 Neut % (Auto) 93.1 H Lymph % (Auto) 4.7 L [place] % (Auto) 1.0 Eos % (Auto) 0.0 Baso % (Auto) 0.1 Neut # (Auto) 11.2 H Lymph # (Auto) 0.6 [place] # (Auto) 0.1 L Eos # (Auto) 0.0 Baso # (Auto) 0.0 Immature Gran # (Auto) 0.1 Hypochromasia Anisocytosis Puncture Site Base Excess O2 Saturation ABG pH ABG pCO2 ABG pO2 ABG HCO3 ABG Total CO2 Bernabe Test Hemoglobin Oxyhemoglobin Carboxyhemoglobin Total Hemoglobin O2 Delivery Device Oxygen Liter Flow FiO2 % Sodium 134.7 Potassium 5.42 H Chloride 97.5 L Carbon Dioxide 32.2 H Anion Gap 10.42 BUN 26.7 H Creatinine 1.25 Estimated GFR (MDRD) 42.00 BUN/Creatinine Ratio 21.36 Glucose 189.7 H D Lactic Acid Calcium 8.42 Magnesium 2.87 H Total Bilirubin 0.26 AST 29.8 ALT 17.8 Alkaline Phosphatase 107.5 Total Creatine Kinase CK-MB (CK-2) CK-MB (CK-2) % Troponin I NT-Pro-B Natriuret Pep Total Protein 6.58 Albumin 4.06 Globulin 2.52 Albumin/Globulin Ratio 1.61 Procalcitonin Urine Color Urine Clarity Urine pH Ur Specific [place] Urine Protein Urine Glucose (UA) Urine Ketones Urine Blood Urine Nitrite Urine Bilirubin Urine Urobilinogen Ur Leukocyte Esterase Adenovirus (PCR) B. pertussis DNA (PCR) B.parapertussis DNA PCR C. pneumoniae DNA (PCR) Coronavirus OC43 (PCR) Coronavirus HKU1 (PCR) Coronavirus 229E (PCR) Coronavirus NL63 (PCR) Human Metapneumovir PCR Influenza Type A (PCR) Influenza B (RT-PCR) M. pneumoniae (PCR) Parainfluenza 1 (PCR) Parainfluenza 2 (PCR) Parainfluenza 3 (PCR) Parainfluenza 4 (PCR) RSV (PCR) Entero/Rhino (PCR) SARS-CoV-2 (PCR) 06/16/21 06/16/21 06/17/21 05:15 05:40 05:00 WBC 9.26 RBC 3.06 L Hgb 8.5 L Hct 28.5 L MCV 93.1 MCH 27.8 MCHC 29.8 L RDW Coeff of Lynette 15.3 H Plt Count 256 Immature Gran % (Auto) 1.1 Neut % (Auto) 92.6 H Lymph % (Auto) 4.6 L [place] % (Auto) 1.6 Eos % (Auto) 0.0 Baso % (Auto) 0.1 Neut # (Auto) 8.6 H Lymph # (Auto) 0.4 L [place] # (Auto) 0.2 L Eos # (Auto) 0.0 Baso # (Auto) 0.0 Immature Gran # (Auto) 0.1 Hypochromasia Anisocytosis Puncture Site Lbrach Base Excess 6.0 H O2 Saturation 80.7 L ABG pH 7.34 L ABG pCO2 59.0 H ABG pO2 48.0 L* ABG HCO3 31.8 H ABG Total CO2 33.6 H Bernabe Test Hemoglobin 0.5 Oxyhemoglobin 82.8 L Carboxyhemoglobin 2.4 H Total Hemoglobin 8.6 L O2 Delivery Device Nc Oxygen Liter Flow 3.00 FiO2 % Sodium 136.4 Potassium 5.17 H Chloride 98.6 Carbon Dioxide 31.7 H Anion Gap 11.27 BUN 26.6 H Creatinine 1.21 Estimated GFR (MDRD) 43.00 BUN/Creatinine Ratio 21.98 Glucose 160.2 H Lactic Acid Calcium 8.44 Magnesium Total Bilirubin 0.25 AST 25.4 ALT 17.6 Alkaline Phosphatase 100.9 Total Creatine Kinase CK-MB (CK-2) CK-MB (CK-2) % Troponin I NT-Pro-B Natriuret Pep Total Protein 6.60 Albumin 4.02 Globulin 2.58 Albumin/Globulin Ratio 1.55 Procalcitonin Urine Color Urine Clarity Urine pH Ur Specific [place] Urine Protein Urine Glucose (UA) Urine Ketones Urine Blood Urine Nitrite Urine Bilirubin Urine Urobilinogen Ur Leukocyte Esterase Adenovirus (PCR) B. pertussis DNA (PCR) B.parapertussis DNA PCR C. pneumoniae DNA (PCR) Coronavirus OC43 (PCR) Coronavirus HKU1 (PCR) Coronavirus 229E (PCR) Coronavirus NL63 (PCR) Human Metapneumovir PCR Influenza Type A (PCR) Influenza B (RT-PCR) M. pneumoniae (PCR) Parainfluenza 1 (PCR) Parainfluenza 2 (PCR) Parainfluenza 3 (PCR) Parainfluenza 4 (PCR) RSV (PCR) Entero/Rhino (PCR) SARS-CoV-2 (PCR) 06/17/21 06/17/21 06/18/21 05:00 05:19 06:19 WBC 6.66 RBC 3.23 L Hgb 8.8 L Hct 29.6 L MCV 91.6 MCH 27.2 MCHC 29.7 L RDW Coeff of Lynette 15.1 H Plt Count 278 Immature Gran % (Auto) 1.5 Neut % (Auto) 93.1 H Lymph % (Auto) 4.2 L [place] % (Auto) 1.2 Eos % (Auto) 0.0 Baso % (Auto) 0.0 Neut # (Auto) 6.2 Lymph # (Auto) 0.3 L [place] # (Auto) 0.1 L Eos # (Auto) 0.0 Baso # (Auto) 0.0 Immature Gran # (Auto) 0.1 Hypochromasia Anisocytosis Puncture Site Lb Base Excess 3.9 H O2 Saturation 99.2 H ABG pH 7.31 L ABG pCO2 60.0 H ABG pO2 156.0 H ABG HCO3 30.2 H ABG Total CO2 32.0 H Bernabe Test + Hemoglobin 1.0 Oxyhemoglobin 95.7 Carboxyhemoglobin 2.7 H Total Hemoglobin 10.3 L O2 Delivery Device Cannula Oxygen Liter Flow 4.50 FiO2 % 38.0 Sodium 134.5 Potassium 5.41 H Chloride 99.0 Carbon Dioxide 30.8 H Anion Gap 10.11 BUN 33.9 H Creatinine 1.10 Estimated GFR (MDRD) 49.00 BUN/Creatinine Ratio 30.81 Glucose 146.4 H Lactic Acid Calcium 8.38 L Magnesium Total Bilirubin AST ALT Alkaline Phosphatase Total Creatine Kinase CK-MB (CK-2) CK-MB (CK-2) % Troponin I NT-Pro-B Natriuret Pep Total Protein Albumin Globulin Albumin/Globulin Ratio Procalcitonin Urine Color Urine Clarity Urine pH Ur Specific [place] Urine Protein Urine Glucose (UA) Urine Ketones Urine Blood Urine Nitrite Urine Bilirubin Urine Urobilinogen Ur Leukocyte Esterase Adenovirus (PCR) B. pertussis DNA (PCR) B.parapertussis DNA PCR C. pneumoniae DNA (PCR) Coronavirus OC43 (PCR) Coronavirus HKU1 (PCR) Coronavirus 229E (PCR) Coronavirus NL63 (PCR) Human Metapneumovir PCR Influenza Type A (PCR) Influenza B (RT-PCR) M. pneumoniae (PCR) Parainfluenza 1 (PCR) Parainfluenza 2 (PCR) Parainfluenza 3 (PCR) Parainfluenza 4 (PCR) RSV (PCR) Entero/Rhino (PCR) SARS-CoV-2 (PCR) 06/18/21 06/19/21 06/19/21 06:19 05:25 05:25 WBC 5.80 RBC 3.20 L Hgb 8.9 L Hct 29.0 L MCV 90.6 MCH 27.8 MCHC 30.7 L RDW Coeff of Lynette 14.6 Plt Count 268 Immature Gran % (Auto) 1.6 Neut % (Auto) 91.2 H Lymph % (Auto) 5.3 L [place] % (Auto) 1.7 Eos % (Auto) 0.0 Baso % (Auto) 0.2 Neut # (Auto) 5.3 Lymph # (Auto) 0.3 L [place] # (Auto) 0.1 L Eos # (Auto) 0.0 Baso # (Auto) 0.0 Immature Gran # (Auto) 0.1 Hypochromasia Anisocytosis Puncture Site Base Excess O2 Saturation ABG pH ABG pCO2 ABG pO2 ABG HCO3 ABG Total CO2 Bernabe Test Hemoglobin Oxyhemoglobin Carboxyhemoglobin Total Hemoglobin O2 Delivery Device Oxygen Liter Flow FiO2 % Sodium 135.0 133.7 L Potassium 4.78 4.78 Chloride 98.8 98.1 Carbon Dioxide 30.9 H 31.7 H Anion Gap 10.08 8.68 BUN 33.3 H 36.4 H Creatinine 1.07 1.09 Estimated GFR (MDRD) 50.00 49.00 BUN/Creatinine Ratio 31.12 33.39 Glucose 147.9 H 152.5 H Lactic Acid Calcium 8.16 L 7.96 L Magnesium Total Bilirubin 0.22 0.29 AST 23.2 27.2 ALT 16.6 18.0 Alkaline Phosphatase 84.4 69.5 Total Creatine Kinase CK-MB (CK-2) CK-MB (CK-2) % Troponin I NT-Pro-B Natriuret Pep 1780.000 H Total Protein 6.41 6.31 Albumin 3.87 3.74 Globulin 2.54 2.57 Albumin/Globulin Ratio 1.52 1.45 Procalcitonin Urine Color Urine Clarity Urine pH Ur Specific [place] Urine Protein Urine Glucose (UA) Urine Ketones Urine Blood Urine Nitrite Urine Bilirubin Urine Urobilinogen Ur Leukocyte Esterase Adenovirus (PCR) B. pertussis DNA (PCR) B.parapertussis DNA PCR C. pneumoniae DNA (PCR) Coronavirus OC43 (PCR) Coronavirus HKU1 (PCR) Coronavirus 229E (PCR) Coronavirus NL63 (PCR) Human Metapneumovir PCR Influenza Type A (PCR) Influenza B (RT-PCR) M. pneumoniae (PCR) Parainfluenza 1 (PCR) Parainfluenza 2 (PCR) Parainfluenza 3 (PCR) Parainfluenza 4 (PCR) RSV (PCR) Entero/Rhino (PCR) SARS-CoV-2 (PCR) 06/20/21 06/20/21 04:57 04:57 WBC 8.48 RBC 3.12 L Hgb 8.7 L Hct 27.9 L MCV 89.4 MCH 27.9 MCHC 31.2 L RDW Coeff of Lynette 14.6 Plt Count 267 Immature Gran % (Auto) 1.4 Neut % (Auto) 93.4 H Lymph % (Auto) 3.8 L [place] % (Auto) 1.4 Eos % (Auto) 0.0 Baso % (Auto) 0.0 Neut # (Auto) 7.9 H Lymph # (Auto) 0.3 L [place] # (Auto) 0.1 L Eos # (Auto) 0.0 Baso # (Auto) 0.0 Immature Gran # (Auto) 0.1 Hypochromasia Anisocytosis Puncture Site Base Excess O2 Saturation ABG pH ABG pCO2 ABG pO2 ABG HCO3 ABG Total CO2 Bernabe Test Hemoglobin Oxyhemoglobin Carboxyhemoglobin Total Hemoglobin O2 Delivery Device Oxygen Liter Flow FiO2 % Sodium 133.0 L Potassium 4.48 Chloride 100.2 Carbon Dioxide 30.1 H Anion Gap 7.18 BUN 30.2 H Creatinine 1.08 Estimated GFR (MDRD) 50.00 BUN/Creatinine Ratio 27.96 Glucose 164.4 H Lactic Acid Calcium 7.63 L Magnesium Total Bilirubin 0.22 AST 25.3 ALT 16.9 Alkaline Phosphatase 67.8 Total Creatine Kinase CK-MB (CK-2) CK-MB (CK-2) % Troponin I NT-Pro-B Natriuret Pep Total Protein 5.58 L Albumin 3.31 L Globulin 2.27 Albumin/Globulin Ratio 1.45 Procalcitonin Urine Color Urine Clarity Urine pH Ur Specific [place] Urine Protein Urine Glucose (UA) Urine Ketones Urine Blood Urine Nitrite Urine Bilirubin Urine Urobilinogen Ur Leukocyte Esterase Adenovirus (PCR) B. pertussis DNA (PCR) B.parapertussis DNA PCR C. pneumoniae DNA (PCR) Coronavirus OC43 (PCR) Coronavirus HKU1 (PCR) Coronavirus 229E (PCR) Coronavirus NL63 (PCR) Human Metapneumovir PCR Influenza Type A (PCR) Influenza B (RT-PCR) M. pneumoniae (PCR) Parainfluenza 1 (PCR) Parainfluenza 2 (PCR) Parainfluenza 3 (PCR) Parainfluenza 4 (PCR) RSV (PCR) Entero/Rhino (PCR) [id number] (PCR) See chest CT reports. Follow-ups: [facility]. [facility]charge Dis[facility] Hospital Course: Admitted with COPD exacerbation. Standard tx resolved the issue. Returned to baseline using O2 at 3 L per NC. Generalized debility and weakness persisted resulting in need for [facility] placement. Other minor issues such as elevated potassium resolved. Mild cognitive impairment is minimal but will persist. Plan: Discharge to [facility] today. Time spent in this [id number] evaluation and preparation of discharge was one hour.
[2021-06-27] MEDS ORDERED: COREG PO SCH (17:00)
[2021-06-28] MEDS ORDERED: PROZAC PO SCH (09:00)
[2021-06-28] MEDS ORDERED: NORVASC PO SCH (09:00)
== END 2021-06-27 18:12 | DRG 190 ==
LOC: ED 01:47 → MEDSURG A 04:03
PROVIDERS: ADMIT Internal Medicine Geriatric Medicine; ATTEND Emergency Medicine
DX: G31.84 Mild cognitive impairment of uncertain or unknown etiology; Z20.822 Contact with and (suspected) exposure to COVID-19; Z51.81 Encounter for therapeutic drug level monitoring; J96.22 Acute and chronic respiratory failure with hypercapnia; Z79.01 Long term (current) use of anticoagulants; Z99.81 Dependence on supplemental oxygen; E87.5 Hyperkalemia; Z79.899 Other long term (current) drug therapy; J44.1 Chronic obstructive pulmonary disease with (acute) exacerbation; J96.21 Acute and chronic respiratory failure with hypoxia; R54 Age-related physical debility